=== PATIENT | female | born 1950 | race African-American/Black ===

== ENCOUNTER 2023-01-30 12:10 | Outpatient (AMB) | payer MEDICARE, MEDICAID, SELFPAY ==
--- NOTE | 2023-01-30 12:19 | HO.NEPHOV ---
HPI HPI Comments History of Present Illness Details I had the privilege of seeing Yecenia in follow-up of her chronic kidney disease and hypertension. Her blood pressure has been fairly well controlled. She is active. She avoids nonsteroidal anti-inflammatory medications. She maintains good hydration. He is compliant with her current medication regimen. She has seen Dr. Dawson for her coronary artery disease. She has no chest pain, shortness of breath, proximal nocturnal dyspnea, orthopnea, pedal edema or urinary symptoms. She has gained some weight as per her. She has no orthostatic symptoms. Her renal functions had been stable. She does not have any nausea, vomiting or diarrhea either. She is tolerating her current medication regimen. She has anemia due to iron deficiency as well as anemia of chronic disease. She has not had any Procrit recently. She cannot tolerate oral iron tablets as it is causing constipation. [facility] Medical History (Updated 01/31/23 @ 06:41 by London Boyer MD) Chronic kidney disease Anemia in chronic kidney disease Social History (Updated 01/30/23 @ 12:26 by Acacia Bruno MA) Alcohol intake: never Patient Tobacco Use Status: Never used Tobacco Vital Signs 01/30/23 12:21 01/30/23 13:23 Height 5 ft 8 in Weight 191 lb BMI 29.0 BP 170/80 H 140/80 H Blood Pressure Location Rt brachial Position Sitting Pulse 56 Pulse Source Pulse Oximeter Physical Exam Vital Signs: Last Vital Signs Pulse 56 01/30/23 12:21 BP 140/80 H 01/30/23 13:23 BMI result Body Mass Index 29.0 Const General: comfortable and no acute distress Orientation/consciousness: patient oriented x3 HEENT Head: Yes normocephalic Mouth: Normal oral and palatal mucosa present Eyes EOM: EOMs intact bilaterally Neck Neck: Yes supple Resp Auscultation: clear to auscultation bilaterally Cardio Jugular venous distension: no JVD Rate: regular rate GI Palpation (GI): Soft to palpation Auscultation: normal bowel sounds General: Yes no CVA tenderness Back/Spine/Pelvis Back: no CVA tenderness Skin General skin exam: no rashes or lesions noted Neuro General: patient oriented x3 and moves all extremities Extrem General: Yes no pedal edema Assessment & Plan Assessment & Plan (1) CKD (chronic kidney disease) stage 3, GFR 30-59 ml/min: Code(s): N18.30 - Chronic kidney disease, stage 3 unspecified Qualifiers: Chronic kidney disease stage 3 subtype: stage 3a (GFR 45-59) Qualified Code(s): N18.31 - Chronic kidney disease, stage 3a (2) Hypertension: Code(s): I10 - Essential (primary) hypertension Qualifiers: Hypertension type: primary hypertension Qualified Code(s): I10 - Essential (primary) hypertension (3) Anemia in chronic kidney disease: Code(s): N18.9 - Chronic kidney disease, unspecified; D63.1 - Anemia in chronic kidney disease Qualifiers: Chronic kidney disease stage: stage 3 (moderate) Chronic kidney disease stage 3 subtype: stage 3b (GFR 30-44) Qualified Code(s): N18.32 - Chronic kidney disease, stage 3b; D63.1 - Anemia in chronic kidney disease (4) Iron deficiency: Code(s): E61.1 - Iron deficiency Plan Yecenia has chronic kidney disease and longstanding hypertension. 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 She is known to have coronary artery disease and has undergone angioplasty and stenting. Her urine output is good. Volume status is optimal. Her blood pressure when repeated by me in the clinic was 130/80 mmHg. She needs to maintain low-sodium diet and lose some weight. She is to follow-up with her medical record librarians teacher. She has history of lower extremity blood clots which is of no concern. She is compliant with her medications. She is iron deficient. I plan to arrange intravenous iron as she cannot tolerate oral iron due to constipation issues. If her hemoglobin does not improve with iron repletion, she will need Procrit. I also have ordered 24 hour urine collection for creatinine clearance. All questions were answered. Time spent retrieving data, patient encounter and documentation 47 minutes. Follow-up given. Orders: Orders Creatinine Clearance Urine 01/30/23 D63.1 - Anemia in chronic kidney disease, I10 - Essential (primary) hypertension, N18.30 - Chronic kidney disease, stage 3 unspecified, N18.9 - Chronic kidney disease, unspecified IRON PROFILE 01/30/23 D63.1 - Anemia in chronic kidney disease, I10 - Essential (primary) hypertension, N18.30 - Chronic kidney disease, stage 3 unspecified, N18.9 - Chronic kidney disease, unspecified Complete Blood Count Auto Diff 01/30/23 D63.1 - Anemia in chronic kidney disease, I10 - Essential (primary) hypertension, N18.30 - Chronic kidney disease, stage 3 unspecified, N18.9 - Chronic kidney disease, unspecified Electrolytes 01/30/23 D63.1 - Anemia in chronic kidney disease, I10 - Essential (primary) hypertension, N18.30 - Chronic kidney disease, stage 3 unspecified, N18.9 - Chronic kidney disease, unspecified Blood Urea Nitrogen 01/30/23 D63.1 - Anemia in chronic kidney disease, I10 - Essential (primary) hypertension, N18.30 - Chronic kidney disease, stage 3 unspecified, N18.9 - Chronic kidney disease, unspecified Creatinine 01/30/23 D63.1 - Anemia in chronic kidney disease, I10 - Essential (primary) hypertension, N18.30 - Chronic kidney disease, stage 3 unspecified, N18.9 - Chronic kidney disease, unspecified Ferritin 01/30/23 D63.1 - Anemia in chronic kidney disease, I10 - Essential (primary) hypertension, N18.30 - Chronic kidney disease, stage 3 unspecified, N18.9 - Chronic kidney disease, unspecified Calcium 01/30/23 D63.1 - Anemia in chronic kidney disease, I10 - Essential (primary) hypertension, N18.30 - Chronic kidney disease, stage 3 unspecified, N18.9 - Chronic kidney disease, unspecified Coding Level of Care Code Est Pt Level 4 (24422) Diagnoses Stage 3a chronic kidney disease N18.31 Chronic kidney disease stage 3 subtype: stage 3a (GFR 45-59) Primary hypertension I10 Hypertension type: primary hypertension Anemia in stage 3b chronic kidney disease N18.32; D63.1 Chronic kidney disease stage: stage 3 (moderate) Chronic kidney disease stage 3 subtype: stage 3b (GFR 30-44) Iron deficiency E61.1 Results Reviewed Nephrology Results: No Data to Display
[2023-01-30 12:21] VITALS: BP 170/80; PULSE 56; BMI 29.0
[2023-01-30 13:23] VITALS: BP 140/80
== END 2023-01-30 13:36 | disposition home or self-care (01) ==
PROVIDERS: Visit Provider Internal Medicine Nephrology
DX: N18.31 Chronic kidney disease, stage 3a (principal); I10 Essential (primary) hypertension; N18.32 Chronic kidney disease, stage 3b; D63.1 Anemia in chronic kidney disease; E61.1 Iron deficiency
CPT/HCPCS: 99214

== ENCOUNTER → 2023-01-30 12:10 | Outpatient (BNVA) | payer MEDICARE, MEDICAID, SELFPAY | PROVIDERS: Visit Provider Internal Medicine Nephrology | DX: I12.9 Hypertensive chronic kidney disease with stage 1 through stage 4 chronic kidney disease, or unspecified chronic kidney disease (principal); N18.31 Chronic kidney disease, stage 3a; D63.1 Anemia in chronic kidney disease; E61.1 Iron deficiency | CPT/HCPCS: 99212 ==

== ENCOUNTER 2023-04-04 10:22 | Outpatient (AMB) | payer MEDICARE, MEDICAID, SELFPAY ==
[2023-04-04 10:28] VITALS: BP 128/60; PULSE 59; O2SAT 98; BMI 28.3
--- NOTE | 2023-04-04 10:28 | HO.NEPHOV ---
HPI HPI Comments History of Present Illness Details I had the privilege of seeing Yecenia in follow-up of her chronic kidney disease and hypertension. She is active. She avoids nonsteroidal anti-inflammatory medications. She maintains good hydration. He is compliant with her current medication regimen. She has seen Dr. Dawson for her coronary artery disease. She has no chest pain, shortness of breath, proximal nocturnal dyspnea, orthopnea, pedal edema or urinary symptoms. She has gained some weight as per her. She has no orthostatic symptoms. Her renal functions had been stable. She does not have any nausea, vomiting or diarrhea either. She is tolerating her current medication regimen. She has anemia due to iron deficiency as well as anemia of chronic disease. [facility] Medical History (Updated 04/04/23 @ 11:21 by London Boyer MD) Chronic kidney disease Anemia in chronic kidney disease Social History Alcohol intake: never Patient Tobacco Use Status: Never used Tobacco Vital Signs 04/04/23 10:28 Height 5 ft 8 in Weight 186 lb BMI 28.3 BP 128/60 Blood Pressure Location Rt brachial Position Sitting Pulse 59 Pulse Source Pulse Oximeter Pulse Oximetry (%) 98 Oxygen Delivery Method Room Air Physical Exam Vital Signs: Last Vital Signs Pulse 59 04/04/23 10:28 BP 160/70 H 04/04/23 10:28 Pulse Ox 98 04/04/23 10:28 Oxygen Delivery Method Room Air 04/04/23 10:28 BMI result Body Mass Index 28.3 Const General: comfortable and no acute distress Orientation/consciousness: patient oriented x3 HEENT Head: Yes normocephalic Mouth: Normal oral and palatal mucosa present Eyes EOM: EOMs intact bilaterally Neck Neck: Yes supple Resp Auscultation: clear to auscultation bilaterally Cardio Jugular venous distension: no JVD Rate: regular rate GI Palpation (GI): Soft to palpation Auscultation: normal bowel sounds General: Yes no CVA tenderness Back/Spine/Pelvis Back: no CVA tenderness Skin General skin exam: no rashes or lesions noted Neuro General: patient oriented x3 and moves all extremities Extrem General: Yes no pedal edema Assessment & Plan Assessment & Plan (1) Anemia in chronic kidney disease: Code(s): N18.9 - Chronic kidney disease, unspecified; D63.1 - Anemia in chronic kidney disease Qualifiers: Chronic kidney disease stage: stage 3 (moderate) Chronic kidney disease stage 3 subtype: stage 3b (GFR 30-44) Qualified Code(s): N18.32 - Chronic kidney disease, stage 3b; D63.1 - Anemia in chronic kidney disease (2) Hypertension: Code(s): I10 - Essential (primary) hypertension Qualifiers: Hypertension type: primary hypertension Qualified Code(s): I10 - Essential (primary) hypertension (3) CKD (chronic kidney disease) stage 3, GFR 30-59 ml/min: Code(s): N18.30 - Chronic kidney disease, stage 3 unspecified Qualifiers: Chronic kidney disease stage 3 subtype: stage 3a (GFR 45-59) Qualified Code(s): N18.31 - Chronic kidney disease, stage 3a (4) Iron deficiency: Code(s): E61.1 - Iron deficiency (5) Hyperkalemia: Code(s): E87.5 - Hyperkalemia Plan Yecenia has chronic kidney disease and longstanding hypertension. 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 She is known to have coronary artery disease and has undergone angioplasty and stenting. Her urine output is good. Volume status is optimal. Her blood pressure when repeated by me in the clinic was 130/80 mmHg. She needs to maintain low-sodium diet and lose some weight. She is to follow-up with her molder hand. She has history of lower extremity blood clots which is of no concern. She is compliant with her medications. She is iron deficient. I gave her Kayexalate 30 Gram one time dose today. I plan to arrange intravenous iron if she cannot tolerate oral iron due to constipation issues. I gave [id number] Units Procrit today. I reduced her Spironolactone to 12.5 mg daily. I also ordered Kayexalate 30 Gram once today. She was asked to take Ferrous sulphate 325 mg bid. I also have ordered 24 hour urine collection for creatinine clearance and repeat renal functions in a month. All questions were answered. Orders: Orders AMB Epoetin Injection Practice Supplied Today D63.1 - Anemia in chronic kidney disease, I10 - Essential (primary) hypertension, N18.30 - Chronic kidney disease, stage 3 unspecified, N18.9 - Chronic kidney disease, unspecified Electrolytes Today D63.1 - Anemia in chronic kidney disease, E61.1 - Iron deficiency, E87.5 - Hyperkalemia, I10 - Essential (primary) hypertension, N18.30 - Chronic kidney disease, stage 3 unspecified, N18.9 - Chronic kidney disease, unspecified Creatinine Today D63.1 - Anemia in chronic kidney disease, E61.1 - Iron deficiency, E87.5 - Hyperkalemia, I10 - Essential (primary) hypertension, N18.30 - Chronic kidney disease, stage 3 unspecified, N18.9 - Chronic kidney disease, unspecified Blood Urea Nitrogen Today D63.1 - Anemia in chronic kidney disease, E61.1 - Iron deficiency, E87.5 - Hyperkalemia, I10 - Essential (primary) hypertension, N18.30 - Chronic kidney disease, stage 3 unspecified, N18.9 - Chronic kidney disease, unspecified Complete Blood Count Auto Diff Today D63.1 - Anemia in chronic kidney disease, E61.1 - Iron deficiency, E87.5 - Hyperkalemia, I10 - Essential (primary) hypertension, N18.30 - Chronic kidney disease, stage 3 unspecified, N18.9 - Chronic kidney disease, unspecified Medications: New sodium polystyrene sulfonate 30 grams PO ONCE 30 grams 0RF epoetin walt 20,000 units (2 mL) subcut ONCE 2 mL 0RF D63.1 - Anemia in chronic kidney disease, I10 - Essential (primary) hypertension, N18.30 - Chronic kidney disease, stage 3 unspecified, N18.9 - Chronic kidney disease, unspecified Coding Level of Care Code Est Pt Level 4 (31809) Diagnoses Anemia in stage 3b chronic kidney disease N18.32; D63.1 Chronic kidney disease stage: stage 3 (moderate) Chronic kidney disease stage 3 subtype: stage 3b (GFR 30-44) Primary hypertension I10 Hypertension type: primary hypertension Stage 3a chronic kidney disease N18.31 Chronic kidney disease stage 3 subtype: stage 3a (GFR 45-59) Iron deficiency E61.1 Hyperkalemia E87.5 Results Reviewed Nephrology Results: No Data to Display
== END 2023-04-04 11:27 | disposition home or self-care (01) ==
PROVIDERS: Visit Provider Internal Medicine Nephrology
DX: N18.32 Chronic kidney disease, stage 3b (principal); D63.1 Anemia in chronic kidney disease; I10 Essential (primary) hypertension; N18.31 Chronic kidney disease, stage 3a; E61.1 Iron deficiency; E87.5 Hyperkalemia
CPT/HCPCS: 99214

== ENCOUNTER → 2023-04-04 10:22 | Outpatient (BNVA) | payer MEDICARE, MEDICAID, SELFPAY | PROVIDERS: Visit Provider Internal Medicine Nephrology | DX: I12.9 Hypertensive chronic kidney disease with stage 1 through stage 4 chronic kidney disease, or unspecified chronic kidney disease (principal); N18.32 Chronic kidney disease, stage 3b; D63.1 Anemia in chronic kidney disease; E61.1 Iron deficiency; E87.5 Hyperkalemia | CPT/HCPCS: 96372; 99212; Q5106 ==

== ENCOUNTER 2023-05-09 10:33 | Outpatient (AMB) | payer MEDICARE, MEDICAID, SELFPAY ==
[2023-05-09 10:49] VITALS: BP 130/80; PULSE 50; O2SAT 97; BMI 27.8
--- NOTE | 2023-05-09 10:49 | HO.NEPHOV_ITS ---
HPI HPI Comments History of Present Illness Details I had the privilege of seeing Yecenia in follow-up of her chronic kidney disease and hypertension. She is active. She avoids nonsteroidal anti- inflammatory medications. She maintains good hydration. He is compliant with her current medication regimen. She has seen Dr. Dawson for her coronary artery disease. She has no chest pain, shortness of breath, proximal nocturnal dyspnea, orthopnea, pedal edema or urinary symptoms. She has gained some weight as per her. She has no orthostatic symptoms. Her renal functions had been stable. She does not have any nausea, vomiting or diarrhea either. She is tolerating her current medication regimen. She has anemia due to iron deficiency as well as anemia of chronic disease. [facility] Medical History (Updated 04/04/23 @ 11:21 by London Boyer MD) Chronic kidney disease Anemia in chronic kidney disease Social History Alcohol intake: never Patient Tobacco Use Status: Never used Tobacco Vital Signs 05/09/23 10:49 Height 5 ft 8 in Weight 183 lb BMI 27.8 BP 130/80 Blood Pressure Location Rt brachial Position Sitting Pulse 50 Pulse Source Pulse Oximeter Pulse Oximetry (%) 97 Oxygen Delivery Method Room Air Physical Exam Vital Signs: Last Vital Signs Pulse 50 05/09/23 10:49 BP 148/76 H 05/09/23 10:49 Pulse Ox 97 05/09/23 10:49 Oxygen Delivery Method Room Air 05/09/23 10:49 BMI result Body Mass Index 27.8 Const General: comfortable and no acute distress Orientation/consciousness: patient oriented x3 HEENT Head: Yes normocephalic Mouth: Normal oral and palatal mucosa present Eyes EOM: EOMs intact bilaterally Neck Neck: Yes supple Resp Auscultation: clear to auscultation bilaterally Cardio Jugular venous distension: no JVD Rate: regular rate GI Palpation (GI): Soft to palpation Auscultation: normal bowel sounds General: Yes no CVA tenderness Back/Spine/Pelvis Back: no CVA tenderness Skin General skin exam: no rashes or lesions noted Neuro General: patient oriented x3 and moves all extremities Extrem General: Yes pedal edema Office Meds epoetin walt-epbx 10,000 unit/mL injection solution Performing Provider: London Boyer MD [facility] Administered by: London Boyer MD on 05/09/23 11:15 Dose Route Admin Location Dispensed Lot Number Expiration Date [facility] [employer] 20,000 unit subcut L UE 2 mL [id number] 07/20/25 8888-6045-91 [employer] Assessment & Plan Assessment & Plan (1) Anemia in chronic kidney disease: Code(s): N18.9 - Chronic kidney disease, unspecified; D63.1 - Anemia in chronic kidney disease Qualifiers: Chronic kidney disease stage: stage 3 (moderate) Chronic kidney disease stage 3 subtype: stage 3b (GFR 30-44) Qualified Code(s): N18.32 - Chronic kidney disease, stage 3b; D63.1 - Anemia in chronic kidney disease (2) Hypertension: Code(s): I10 - Essential (primary) hypertension Qualifiers: Hypertension type: primary hypertension Qualified Code(s): I10 - Essential (primary) hypertension (3) CKD (chronic kidney disease) stage 3, GFR 30-59 ml/min: Code(s): N18.30 - Chronic kidney disease, stage 3 unspecified Qualifiers: Chronic kidney disease stage 3 subtype: stage 3a (GFR 45-59) Qualified Code(s): N18.31 - Chronic kidney disease, stage 3a (4) Iron deficiency: Code(s): E61.1 - Iron deficiency (5) Hyperkalemia: Code(s): E87.5 - Hyperkalemia Plan Yecenia has chronic kidney disease and longstanding hypertension. 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 She is known to have coronary artery disease and has undergone angioplasty and stenting. Her urine output is good. Volume status is optimal. Her blood pressure when repeated by me in the clinic was 130/80 mmHg. She needs to maintain low-sodium diet and lose some weight. She is to follow-up with her service counter cashier. She has history of lower extremity blood clots which is of no concern. She is compliant with her medications. She is iron deficient. I gave her Kayexalate 30 Gram one time every week. I plan to arrange intravenous iron if she cannot tolerate oral iron due to constipation issues. I gave [id number] Units Procrit today.She was asked to take Ferrous sulphate 325 mg bid. F/U labs ordered. All questions were answered. Orders: Orders Complete Blood Count Auto Diff Today D63.1 - Anemia in chronic kidney disease, N18.30 - Chronic kidney disease, stage 3 unspecified, N18.9 - Chronic kidney disease, unspecified AMB Epoetin Injection Practice Supplied Today D63.1 - Anemia in chronic kidney disease, N18.9 - Chronic kidney disease, unspecified Medications: New sodium polystyrene sulfonate 30 grams PO .q weekly 453.6 grams 3RF 90 days Coding Level of Care Code Est Pt Level 4 (84604) Diagnoses Anemia in stage 3b chronic kidney disease N18.32; D63.1 Chronic kidney disease stage: stage 3 (moderate) Chronic kidney disease stage 3 subtype: stage 3b (GFR 30-44) Primary hypertension I10 Hypertension type: primary hypertension Stage 3a chronic kidney disease N18.31 Chronic kidney disease stage 3 subtype: stage 3a (GFR 45-59) Iron deficiency E61.1 Hyperkalemia E87.5 Results Reviewed Nephrology Results: No Data to Display
== END 2023-05-09 11:30 | disposition home or self-care (01) ==
PROVIDERS: Visit Provider Internal Medicine Nephrology
DX: I12.9 Hypertensive chronic kidney disease with stage 1 through stage 4 chronic kidney disease, or unspecified chronic kidney disease (principal); N18.32 Chronic kidney disease, stage 3b; D63.1 Anemia in chronic kidney disease; N18.31 Chronic kidney disease, stage 3a; E61.1 Iron deficiency; E87.5 Hyperkalemia; N18.9 Chronic kidney disease, unspecified
CPT/HCPCS: 99214

== ENCOUNTER → 2023-05-09 10:33 | Outpatient (BNVA) | payer MEDICARE, MEDICAID, SELFPAY | PROVIDERS: Visit Provider Internal Medicine Nephrology | DX: I12.9 Hypertensive chronic kidney disease with stage 1 through stage 4 chronic kidney disease, or unspecified chronic kidney disease (principal); N18.30 Chronic kidney disease, stage 3 unspecified; D63.1 Anemia in chronic kidney disease; E61.1 Iron deficiency; E87.5 Hyperkalemia | CPT/HCPCS: 96372; 99212; Q5106 ==

== ENCOUNTER 2023-09-19 09:18 | Outpatient (REF) | payer MEDICARE, MEDICAID, SELFPAY ==
[2023-09-19 11:39] LABS: Anion Gap 12 (12-20); Blood Urea Nitrogen 49 mg/dL (9-16); Calcium 9.9 mg/dL (8.4-10.2); Carbon Dioxide 24 mmol/L (22-29); Chloride 110 mmol/L (96-108); Estimated Glomerular Filt Rate 16; Iron 23 mcg/dL (30-160); Percent Iron Saturation 7 % (15-50); Phosphorus 3.8 mg/dL (2.7-4.5); Potassium 4.5 mmol/L (3.3-5.1); Sodium 141 mmol/L (135-145); Total Iron Binding Capacity 326 mcg/dL (228-428); Unsaturated Iron Binding 303 ug/dL
[2023-09-19 11:56] LABS: Ferritin 133 ng/mL (10-250)
[2023-09-19 12:27] LABS: MANUAL DIFF FLAG NO
[2023-09-19 12:36] LABS: Basophils Percent Auto 0.7 % (0-2); Eosinophils Absolute Auto 0.1 X10*3/uL (0.0-0.4); Hematocrit 29.5 % (37.0-47.0); Hemoglobin 8.1 g/dl (12.0-16.0); Imm Gran Abs Auto 0.02 X10*3/uL (0.00-0.03); Imm Gran Pct Auto 0.4 % (0.0-0.4); Lymphocytes Absolute Auto 1.2 X10*3/uL (1.2-4.9); Lymphocytes Percent Auto 20.7 % (20-40); Mean Corpuscular HGB Conc 27.5 g/dl (31.0-35.0); Mean Corpuscular Hemoglobin 22.9 pg (27.0-33.0); Mean Corpuscular Volume 83.3 fL (80.0-98.0); Mean Platelet Volume 11.8 fL (9.4-12.3); Monocytes Absolute Auto 0.5 X10*3/uL (0.1-1.2); Monocytes Percent Auto 8.6 % (2-11); Neutrophils Absolute Auto 3.8 x10*3/uL (2.0-8.3); Neutrophils Percent Auto 67.6 % (45-73); Platelet Count 285 X10*3/uL (160-400); Red Blood Count 3.54 X10*6/uL (4.20-5.50); White Blood Count 5.6 X10*3/uL (4.8-10.8)
== END 2023-09-19 09:19 | disposition home or self-care (01) ==
LOC: HO.10HDL 09:18
PROVIDERS: Visit Provider Internal Medicine Nephrology
DX: E61.1 Iron deficiency (principal); N18.9 Chronic kidney disease, unspecified; D63.1 Anemia in chronic kidney disease; I10 Essential (primary) hypertension; N18.30 Chronic kidney disease, stage 3 unspecified; E87.5 Hyperkalemia
CPT/HCPCS: 36415; 80051; 82310; 82565; 82728; 83540; 84100; 84520; 85025

== ENCOUNTER 2023-09-21 11:23 | Outpatient (AMB) | payer MEDICARE, MEDICAID, SELFPAY ==
[2023-09-21 11:27] VITALS: BP 140/90; BMI 26.4
--- NOTE | 2023-09-21 11:27 | HO.NEPHOV ---
Vital Signs 09/21/23 11:27 Height 5 ft 8 in Weight 173 lb 8 oz BMI 26.4 BP 140/90 H Blood Pressure Location Rt brachial Position Sitting Intake Visit Reasons: Follow up/ Conf Rn Pain Management Required: No Accompanied by: Self / Same As Patient Allergies amoxicillin Allergy (Unknown, Verified 09/21/23 11:29) Unknown hydrochlorothiazide Allergy (Unknown, Verified 09/21/23 11:29) Unknown Chase inhibitors Allergy (Unknown, Uncoded 04/04/23 10:42) Unknown latex Allergy (Unknown, Uncoded 04/01/19 00:00) rash HPI Comments Details: I had the privilege of seeing Yecenia in follow-up of her chronic kidney disease and hypertension. She is active. She avoids nonsteroidal anti-inflammatory medications. She maintains good hydration. He is compliant with her current medication regimen. She has seen Dr. Dawson for her coronary artery disease. She has no chest pain, shortness of breath, proximal nocturnal dyspnea, orthopnea, pedal edema or urinary symptoms. She has gained some weight as per her. She has no orthostatic symptoms. Her renal functions had been stable. She does not have any nausea, vomiting or diarrhea either. She is tolerating her current medication regimen. She has anemia due to iron deficiency as well as anemia of chronic disease. Her serum creatinine has gone up [facility] Medical History (Updated 04/04/23 @ 11:21 by London Boyer MD) Chronic kidney disease Anemia in chronic kidney disease Social History Alcohol intake: never Patient Tobacco Use Status: Never used Tobacco Physical Exam Vital Signs: Last Vital Signs BP 140/90 H 09/21/23 11:27 BMI result Body Mass Index 26.4 Const General: comfortable and no acute distress Orientation/consciousness: patient oriented x3 HEENT Head: Yes normocephalic Mouth: Normal oral and palatal mucosa present Eyes EOM: EOMs intact bilaterally Neck Neck: Yes supple Resp Auscultation: clear to auscultation bilaterally Cardio Jugular venous distension: no JVD Rate: regular rate GI Palpation (GI): Soft to palpation Auscultation: normal bowel sounds General: Yes no CVA tenderness Back/Spine/Pelvis Back: no CVA tenderness Skin General skin exam: no rashes or lesions noted Neuro General: patient oriented x3 and moves all extremities Extrem General: Yes no pedal edema Office Meds epoetin walt-epbx 10,000 unit/mL injection solution Performing Provider: London Boyer MD [place] [facility] [facility] Administered by: London Boyer MD on 09/21/23 12:10 Dose Route Admin Location Dispensed Lot Number Expiration Date [facility] [employer] 40,000 unit subcut lue 4 mL [id number] 01/19/25 3131-6726-96 [employer] Results Reviewed Nephrology Results: Hgb 8.1 g/dl (12.0-16.0) L 09/19/23 WBC 5.6 X10*3/uL (4.8-10.8) 09/19/23 Plt Count 285 X10*3/uL (160-400) 09/19/23 Sodium 141 mmol/L (135-145) 09/19/23 Potassium 4.5 mmol/L (3.3-5.1) 09/19/23 Chloride 110 mmol/L (96-108) H 09/19/23 Carbon Dioxide 24 mmol/L (22-29) 09/19/23 BUN 49 mg/dL (9-16) H 09/19/23 Creatinine 2.82 mg/dL (0.5-1.4) H 09/19/23 Calcium 9.9 mg/dL (8.4-10.2) 09/19/23 Phosphorus 3.8 mg/dL (2.7-4.5) 09/19/23 Assessment & Plan Assessment & Plan (1) Iron deficiency: Code(s): E61.1 - Iron deficiency Category: Medical (2) Anemia in chronic kidney disease: Code(s): N18.9 - Chronic kidney disease, unspecified; D63.1 - Anemia in chronic kidney disease Category: Medical Qualifiers: Chronic kidney disease stage: stage 3 (moderate) Chronic kidney disease stage 3 subtype: stage 3b (GFR 30-44) Qualified Code(s): N18.32 - Chronic kidney disease, stage 3b; D63.1 - Anemia in chronic kidney disease (3) Hypertension: Code(s): I10 - Essential (primary) hypertension Category: Medical Qualifiers: Hypertension type: primary hypertension Qualified Code(s): I10 - Essential (primary) hypertension (4) CKD (chronic kidney disease) stage 3, GFR 30-59 ml/min: Code(s): N18.30 - Chronic kidney disease, stage 3 unspecified Category: Medical Qualifiers: Chronic kidney disease stage 3 subtype: stage 3a (GFR 45-59) Qualified Code(s): N18.31 - Chronic kidney disease, stage 3a Plan Yecenia has chronic kidney disease and longstanding hypertension. 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 She is known to have coronary artery disease and has undergone angioplasty and stenting. Her urine output is good. Volume status is optimal. Her blood pressure when repeated by me in the clinic was 130/80 mmHg. She needs to maintain low-sodium diet and lose some weight. She is to follow-up with her nursing education consultant. She is compliant with her medications. She is iron deficient. I ordered intravenous iron . I gave [id number] Units Procrit today. F/U labs ordered. All questions were answered. Orders: Orders Creatinine Today D63.1 - Anemia in chronic kidney disease, I10 - Essential (primary) hypertension, N18.31 - Chronic kidney disease, stage 3a, N18.32 - Chronic kidney disease, stage 3b Blood Urea Nitrogen Today D63.1 - Anemia in chronic kidney disease, I10 - Essential (primary) hypertension, N18.31 - Chronic kidney disease, stage 3a, N18.32 - Chronic kidney disease, stage 3b Electrolytes Today D63.1 - Anemia in chronic kidney disease, I10 - Essential (primary) hypertension, N18.31 - Chronic kidney disease, stage 3a, N18.32 - Chronic kidney disease, stage 3b AMB Epoetin Injection Practice Supplied Today D63.1 - Anemia in chronic kidney disease, N18.32 - Chronic kidney disease, stage 3b Complete Blood Count Auto Diff 1 Month D63.1 - Anemia in chronic kidney disease, I10 - Essential (primary) hypertension, N18.31 - Chronic kidney disease, stage 3a, N18.32 - Chronic kidney disease, stage 3b Coding Level of Care Code Est Pt Level 4 (67818) Diagnoses Iron deficiency E61.1 Anemia in stage 3b chronic kidney disease N18.32; D63.1 Chronic kidney disease stage: stage 3 (moderate) Chronic kidney disease stage 3 subtype: stage 3b (GFR 30-44) Primary hypertension I10 Hypertension type: primary hypertension Stage 3a chronic kidney disease N18.31 Chronic kidney disease stage 3 subtype: stage 3a (GFR 45-59)
== END 2023-09-21 12:16 | disposition home or self-care (01) ==
PROVIDERS: Visit Provider Internal Medicine Nephrology
DX: E61.1 Iron deficiency (principal); N18.32 Chronic kidney disease, stage 3b; D63.1 Anemia in chronic kidney disease; I10 Essential (primary) hypertension; N18.31 Chronic kidney disease, stage 3a
CPT/HCPCS: 99214

== ENCOUNTER → 2023-09-21 11:23 | Outpatient (BNVA) | payer MEDICARE, MEDICAID, SELFPAY | PROVIDERS: Visit Provider Internal Medicine Nephrology | DX: I12.9 Hypertensive chronic kidney disease with stage 1 through stage 4 chronic kidney disease, or unspecified chronic kidney disease (principal); N18.32 Chronic kidney disease, stage 3b; D63.1 Anemia in chronic kidney disease; E61.1 Iron deficiency | CPT/HCPCS: 96372; 99212; Q5106 ==

== ENCOUNTER 2023-10-18 08:47 | Outpatient (REF) | payer MEDICARE, MEDICAID, SELFPAY ==
[2023-10-18 09:53] LABS: MANUAL DIFF FLAG NO
[2023-10-18 10:13] LABS: Basophils Absolute Auto 0.1 X10*3/uL (0.0-0.2); Basophils Percent Auto 0.9 % (0-2); Eosinophils Absolute Auto 0.1 X10*3/uL (0.0-0.4); Eosinophils Percent Auto 2.3 % (0-4); Hematocrit 28.5 % (37.0-47.0); Hemoglobin 7.9 g/dl (12.0-16.0); Imm Gran Abs Auto 0.02 X10*3/uL (0.00-0.03); Imm Gran Pct Auto 0.4 % (0.0-0.4); Lymphocytes Absolute Auto 1.6 X10*3/uL (1.2-4.9); Lymphocytes Percent Auto 27.6 % (20-40); Mean Corpuscular HGB Conc 27.7 g/dl (31.0-35.0); Mean Corpuscular Hemoglobin 22.1 pg (27.0-33.0); Mean Corpuscular Volume 79.6 fL (80.0-98.0); Mean Platelet Volume 10.4 fL (9.4-12.3); Monocytes Absolute Auto 0.5 X10*3/uL (0.1-1.2); Monocytes Percent Auto 8.8 % (2-11); Neutrophils Absolute Auto 3.4 x10*3/uL (2.0-8.3); Platelet Count 334 X10*3/uL (160-400); Red Blood Count 3.58 X10*6/uL (4.20-5.50); Red Cell Distribution Width 18.7 % (11.0-16.0); White Blood Count 5.7 X10*3/uL (4.8-10.8)
[2023-10-18 10:48] LABS: Anion Gap 13 (12-20); Blood Urea Nitrogen 49 mg/dL (9-16); Calcium 9.9 mg/dL (8.4-10.2); Carbon Dioxide 22 mmol/L (22-29); Chloride 110 mmol/L (96-108); Estimated Glomerular Filt Rate 17; Glucose Random 117 mg/dL (60-115); Phosphorus 3.7 mg/dL (2.7-4.5); Potassium 4.7 mmol/L (3.3-5.1); Sodium 140 mmol/L (135-145)
[2023-10-31 17:09] LABS: Parathyroid Hormone Related Pr 16 pg/mL (11-20)
== END 2023-10-18 08:48 | disposition home or self-care (01) ==
LOC: HO.LAB 08:47
PROVIDERS: Internal Medicine Hypertension Specialist; Visit Provider Internal Medicine Nephrology
DX: I12.9 Hypertensive chronic kidney disease with stage 1 through stage 4 chronic kidney disease, or unspecified chronic kidney disease (principal); N18.30 Chronic kidney disease, stage 3 unspecified; D63.1 Anemia in chronic kidney disease
CPT/HCPCS: 36415; 80048; 83519; 84100; 85025

== ENCOUNTER 2023-10-26 11:31 | Outpatient (AMB) | payer MEDICARE, MEDICAID, SELFPAY ==
--- NOTE | 2023-10-26 11:43 | HO.NEPHOV ---
Vital Signs 10/26/23 11:49 Height 5 ft 8 in Weight 174 lb 6 oz BMI 26.5 BP 130/80 Blood Pressure Location Lt brachial Position Sitting Pulse 56 Pulse Source Pulse Oximeter Pulse Oximetry (%) 98 Oxygen Delivery Method Room Air Intake Visit Reasons: Anemia in chronic kidney disease- LVM Nurse Navigator Required: No Accompanied by: Self / Same As Patient Allergies amoxicillin Allergy (Unknown, Verified 10/26/23 11:55) Unknown hydrochlorothiazide Allergy (Unknown, Verified 10/26/23 11:55) Unknown Chase inhibitors Allergy (Unknown, Uncoded 04/04/23 10:42) Unknown latex Allergy (Unknown, Uncoded 04/01/19 00:00) rash HPI Comments Details: I had the privilege of seeing Yecenia in follow-up of her chronic kidney disease and hypertension. She is active. She avoids nonsteroidal anti-inflammatory medications. She maintains good hydration. He is compliant with her current medication regimen. She has seen Dr. Dawson for her coronary artery disease. She has no chest pain, shortness of breath, proximal nocturnal dyspnea, orthopnea, pedal edema or urinary symptoms. She has gained some weight as per her. She has no orthostatic symptoms. Her renal functions had been stable. She does not have any nausea, vomiting or diarrhea either. She is tolerating her current medication regimen. She has anemia due to iron deficiency as well as anemia of chronic disease. [facility]MERLY [facility], [facility] Medical History (Updated 04/04/23 @ 11:21 by London Boyer MD) Chronic kidney disease Anemia in chronic kidney disease Social History Alcohol intake: never Patient Tobacco Use Status: Never used Tobacco Review of Systems Const All systems reviewed & are unremarkable except as noted in HPI and below Physical Exam Vital Signs: Last Vital Signs Pulse 56 10/26/23 11:49 BP 150/70 H 10/26/23 11:49 Pulse Ox 98 10/26/23 11:49 Oxygen Delivery Method Room Air 10/26/23 11:49 BMI result Body Mass Index 26.5 Const General: comfortable and no acute distress Orientation/consciousness: patient oriented x3 HEENT Head: Yes normocephalic Mouth: Normal oral and palatal mucosa present Eyes EOM: EOMs intact bilaterally Neck Neck: Yes supple Resp Auscultation: clear to auscultation bilaterally Cardio Jugular venous distension: no JVD Rate: regular rate GI Palpation (GI): Soft to palpation Auscultation: normal bowel sounds General: Yes no CVA tenderness Back/Spine/Pelvis Back: no CVA tenderness Skin General skin exam: no rashes or lesions noted Neuro General: patient oriented x3 and moves all extremities Extrem General: Yes no pedal edema Results Reviewed Nephrology Results: Hgb 7.9 g/dl (12.0-16.0) L 10/18/23 WBC 5.7 X10*3/uL (4.8-10.8) 10/18/23 Plt Count 334 X10*3/uL (160-400) 10/18/23 Sodium 140 mmol/L (135-145) 10/18/23 Potassium 4.7 mmol/L (3.3-5.1) 10/18/23 Chloride 110 mmol/L (96-108) H 10/18/23 Carbon Dioxide 22 mmol/L (22-29) 10/18/23 BUN 49 mg/dL (9-16) H 10/18/23 Creatinine 2.70 mg/dL (0.5-1.4) H 10/18/23 Calcium 9.9 mg/dL (8.4-10.2) 10/18/23 Phosphorus 3.7 mg/dL (2.7-4.5) 10/18/23 Assessment & Plan Assessment & Plan (1) CKD (chronic kidney disease) stage 3, GFR 30-59 ml/min: Code(s): N18.30 - Chronic kidney disease, stage 3 unspecified Category: Medical Qualifiers: Chronic kidney disease stage 3 subtype: stage 3a (GFR 45-59) Qualified Code(s): N18.31 - Chronic kidney disease, stage 3a (2) Hypertension: Code(s): I10 - Essential (primary) hypertension Category: Medical Qualifiers: Hypertension type: primary hypertension Qualified Code(s): I10 - Essential (primary) hypertension (3) Anemia in chronic kidney disease: Code(s): N18.9 - Chronic kidney disease, unspecified; D63.1 - Anemia in chronic kidney disease Category: Medical Qualifiers: Chronic kidney disease stage: stage 3 (moderate) Chronic kidney disease stage 3 subtype: stage 3b (GFR 30-44) Qualified Code(s): N18.32 - Chronic kidney disease, stage 3b; D63.1 - Anemia in chronic kidney disease (4) Iron deficiency: Code(s): E61.1 - Iron deficiency Category: Medical Plan Yecenia has chronic kidney disease and longstanding hypertension. 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 She is known to have coronary artery disease and has undergone angioplasty and stenting. Her urine output is good. Volume status is optimal. Her blood pressure when repeated by me in the clinic was 130/80 mmHg. She needs to maintain low-sodium diet and lose some weight. She is to follow-up with her scraper operator. She is compliant with her medications. She is iron deficient. She is getting intravenous iron . F/U labs ordered. All questions were answered. Orders: Orders Complete Blood Count Auto Diff 2 Months D63.1 - Anemia in chronic kidney disease, E61.1 - Iron deficiency, I10 - Essential (primary) hypertension, N18.31 - Chronic kidney disease, stage 3a, N18.32 - Chronic kidney disease, stage 3b IRON PROFILE 2 Months D63.1 - Anemia in chronic kidney disease, E61.1 - Iron deficiency, I10 - Essential (primary) hypertension, N18.31 - Chronic kidney disease, stage 3a, N18.32 - Chronic kidney disease, stage 3b Creatinine 2 Months D63.1 - Anemia in chronic kidney disease, E61.1 - Iron deficiency, I10 - Essential (primary) hypertension, N18.31 - Chronic kidney disease, stage 3a, N18.32 - Chronic kidney disease, stage 3b Ferritin 2 Months D63.1 - Anemia in chronic kidney disease, E61.1 - Iron deficiency, I10 - Essential (primary) hypertension, N18.31 - Chronic kidney disease, stage 3a, N18.32 - Chronic kidney disease, stage 3b Blood Urea Nitrogen 2 Months D63.1 - Anemia in chronic kidney disease, E61.1 - Iron deficiency, I10 - Essential (primary) hypertension, N18.31 - Chronic kidney disease, stage 3a, N18.32 - Chronic kidney disease, stage 3b Electrolytes 2 Months D63.1 - Anemia in chronic kidney disease, E61.1 - Iron deficiency, I10 - Essential (primary) hypertension, N18.31 - Chronic kidney disease, stage 3a, N18.32 - Chronic kidney disease, stage 3b Coding Level of Care Code Est Pt Level 4 (77295) Diagnoses Stage 3a chronic kidney disease N18.31 Chronic kidney disease stage 3 subtype: stage 3a (GFR 45-59) Primary hypertension I10 Hypertension type: primary hypertension Anemia in stage 3b chronic kidney disease N18.32; D63.1 Chronic kidney disease stage: stage 3 (moderate) Chronic kidney disease stage 3 subtype: stage 3b (GFR 30-44) Iron deficiency E61.1
[2023-10-26 11:49] VITALS: BP 130/80; PULSE 56; O2SAT 98; BMI 26.5
== END 2023-10-26 12:33 | disposition home or self-care (01) ==
PROVIDERS: Visit Provider Internal Medicine Nephrology
DX: N18.31 Chronic kidney disease, stage 3a (principal); I10 Essential (primary) hypertension; N18.32 Chronic kidney disease, stage 3b; D63.1 Anemia in chronic kidney disease; E61.1 Iron deficiency
CPT/HCPCS: 99214

== ENCOUNTER → 2023-10-26 11:31 | Outpatient (BNVA) | payer MEDICARE, MEDICAID, SELFPAY | PROVIDERS: Visit Provider Internal Medicine Nephrology | DX: I12.9 Hypertensive chronic kidney disease with stage 1 through stage 4 chronic kidney disease, or unspecified chronic kidney disease (principal); N18.32 Chronic kidney disease, stage 3b; D63.1 Anemia in chronic kidney disease; E61.1 Iron deficiency | CPT/HCPCS: 99212 ==

== ENCOUNTER 2023-11-16 11:15 | Outpatient (RCR) | payer MEDICARE, MEDICAID, SELFPAY ==
[2023-10-18 10:05] VITALS: BP 186/78; PULSE 86; RESP 18; TEMP 36.6
[2023-10-18] MEDS: Iron Sucrose Complex 200 MG in 0.9 % Sodium Chloride 100 ML 440 MG IV (10:21)
[2023-10-26 10:39] VITALS: BP 172/54; PULSE 49; RESP 18; TEMP 36.6
[2023-10-26] MEDS: Iron Sucrose Complex 200 MG in 0.9 % Sodium Chloride 100 ML 440 MG IV (10:50)
[2023-11-02 10:23] VITALS: BP 152/54; PULSE 50; RESP 16; TEMP 36.8; O2SAT 97
[2023-11-02] MEDS: Iron Sucrose Complex 200 MG in 0.9 % Sodium Chloride 100 ML 440 MG IV (10:32)
[2023-11-16 11:12] VITALS: BP 147/55; PULSE 53; RESP 20; TEMP 36.6; O2SAT 99
[2023-11-16] MEDS: Iron Sucrose Complex 200 MG in 0.9 % Sodium Chloride 100 ML 440 MG IV (11:23)
== END 2024-01-09 11:18 | disposition home or self-care (01) ==
LOC: HO.INF 11:15
PROVIDERS: Visit Provider Internal Medicine Nephrology
DX: E61.1 Iron deficiency (principal)
CPT/HCPCS: 96365; J1756

== ENCOUNTER 2023-12-28 07:38 | Outpatient (REF) | payer MEDICARE, MEDICAID, SELFPAY ==
[2023-12-28 08:49] LABS: Basophils Absolute Auto 0.1 X10*3/uL (0.0-0.2); Basophils Percent Auto 0.8 % (0-2); Eosinophils Absolute Auto 0.1 X10*3/uL (0.0-0.4); Eosinophils Percent Auto 1.8 % (0-4); Hematocrit 23.1 % (37.0-47.0); Imm Gran Abs Auto 0.02 X10*3/uL (0.00-0.03); Imm Gran Pct Auto 0.3 % (0.0-0.4); Lymphocytes Absolute Auto 1.3 X10*3/uL (1.2-4.9); Lymphocytes Percent Auto 19.7 % (20-40); MANUAL DIFF FLAG NO; Mean Corpuscular HGB Conc 26.8 g/dl (31.0-35.0); Mean Corpuscular Volume 81.9 fL (80.0-98.0); Mean Platelet Volume 9.9 fL (9.4-12.3); Monocytes Absolute Auto 0.6 X10*3/uL (0.1-1.2); Monocytes Percent Auto 9.2 % (2-11); Neutrophils Absolute Auto 4.4 x10*3/uL (2.0-8.3); Neutrophils Percent Auto 68.2 % (45-73); Platelet Count 444 X10*3/uL (160-400); Red Blood Count 2.82 X10*6/uL (4.20-5.50); Red Cell Distribution Width 21.2 % (11.0-16.0); White Blood Count 6.5 X10*3/uL (4.8-10.8)
[2023-12-28 08:59] LABS: Hemoglobin 6.2 g/dl (12.0-16.0)
[2023-12-28 09:35] LABS: Anion Gap 16 (12-20); Blood Urea Nitrogen 54 mg/dL (9-16); Calcium 9.4 mg/dL (8.4-10.2); Carbon Dioxide 19 mmol/L (22-29); Chloride 112 mmol/L (96-108); Iron 9 mcg/dL (30-160); Percent Iron Saturation 4 % (15-50); Potassium 5.2 mmol/L (3.3-5.1); Sodium 142 mmol/L (135-145); Total Iron Binding Capacity 234 mcg/dL (228-428); Unsaturated Iron Binding 225 ug/dL
[2023-12-28 10:02] LABS: Ferritin 378 ng/mL (10-250)
== END 2023-12-28 07:39 | disposition home or self-care (01) ==
LOC: HO.LAB 07:38
PROVIDERS: Visit Provider Internal Medicine Nephrology
DX: N18.32 Chronic kidney disease, stage 3b (principal); N18.31 Chronic kidney disease, stage 3a; N18.30 Chronic kidney disease, stage 3 unspecified; I10 Essential (primary) hypertension; N18.9 Chronic kidney disease, unspecified; D63.1 Anemia in chronic kidney disease
CPT/HCPCS: 36415; 80051; 82306; 82310; 82728; 83540; 84520; 85025; 99212

== ENCOUNTER 2023-12-28 13:38 | Outpatient (AMB) | payer MEDICARE, MEDICAID, SELFPAY ==
--- NOTE | 2023-12-28 13:40 | HO.NEPHOV ---
Vital Signs 12/28/23 13:47 Height 5 ft 8 in Weight 168 lb BMI 25.5 BP 152/80 H Blood Pressure Location Lt brachial Position Sitting Pulse 67 Pulse Source Pulse Oximeter Pulse Oximetry (%) 99 Oxygen Delivery Method Room Air Intake Visit Reasons: 2 mon follow up-Conf [place] Picker Required: No Accompanied by: Self / Same As Patient Allergies amoxicillin Allergy (Unknown, Verified 12/28/23 13:46) Unknown hydrochlorothiazide Allergy (Unknown, Verified 12/28/23 13:46) Unknown Chase inhibitors Allergy (Unknown, Uncoded 04/04/23 10:42) Unknown latex Allergy (Unknown, Uncoded 04/01/19 00:00) rash HPI Comments Details: Yecenia was seen in follow-up of her chronic kidney disease and hypertension. She is feeling tired with less appetite.She has been pale with dropping Hb, edema and dropping iron saturations even after some iron transfusions. She recently had cologuard positivity but has not had any colonoscopies. She denies chest pain or syncope but had intermittent palpitations & dizziness. She has H/O PRBC transfusion.(last blood transfusion was in October 2018 at [facility] in [place], [place]). She has H/O SD. She wants her B12 checked. Several weeks ago, she went to see a foot doctor for edema. She had X-rays. As per patient, drapery head former thought perhaps her veins weren't flowing blood to her feet & thery are making an appt to see a vein specialist . She also has been having pain in her legs. She also has been having tinnitus for over a week. She can't walk in the morning when getting out of the bed. Then she uses a walker, take three 500 mgs of Tylenol and 1 aspirin. The pain in her feet is excruciating, but she walk on them. It gets relieved about 3 hours. Her oldest nephew has the sickle cell trait. She avoids nonsteroidal anti-inflammatory medications. She maintains good hydration. He is compliant with her current medication regimen. She has seen Dr. Dawson for her coronary artery disease. She does not have any nausea, vomiting or diarrhea. She is overwhelmed due to personal health issues, moms care etc. She had blood work done which showed dropping Hb but no serum creatinine was done in that sample. [facility] Medical History (Updated 04/04/23 @ 11:21 by London Boyer MD) Chronic kidney disease Anemia in chronic kidney disease Surgical History (Updated 12/28/23 @ 13:44 by Acacia Bruno MA) History of partial hysterectomy Social History Alcohol intake: never Patient Tobacco Use Status: Never used Tobacco Review of Systems Const All systems reviewed & are unremarkable except as noted in HPI and below Physical Exam Vital Signs: Last Vital Signs Pulse 67 12/28/23 13:47 BP 152/80 H 12/28/23 13:47 Pulse Ox 99 12/28/23 13:47 Oxygen Delivery Method Room Air 12/28/23 13:47 BMI result Body Mass Index 25.5 Const Other: Pale General: comfortable and no acute distress Orientation/consciousness: patient oriented x3 HEENT Head: Yes normocephalic Mouth: Normal oral and palatal mucosa present Eyes EOM: EOMs intact bilaterally Neck Neck: Yes supple Resp Auscultation: clear to auscultation bilaterally Cardio Jugular venous distension: no JVD Rate: regular rate GI Palpation (GI): Soft to palpation Auscultation: normal bowel sounds General: Yes no CVA tenderness Back/Spine/Pelvis Back: no CVA tenderness Skin General skin exam: no rashes or lesions noted Neuro General: patient oriented x3 and moves all extremities Extrem General: Yes pedal edema Results Reviewed Nephrology Results: Hgb 6.2 g/dl (12.0-16.0) L* 12/28/23 WBC 6.5 X10*3/uL (4.8-10.8) 12/28/23 Plt Count 444 X10*3/uL (160-400) H 12/28/23 Sodium 142 mmol/L (135-145) 12/28/23 Potassium 5.2 mmol/L (3.3-5.1) H 12/28/23 Chloride 112 mmol/L (96-108) H 12/28/23 Carbon Dioxide 19 mmol/L (22-29) L 12/28/23 BUN 54 mg/dL (9-16) H 12/28/23 Creatinine 2.70 mg/dL (0.5-1.4) H 10/18/23 Calcium 9.4 mg/dL (8.4-10.2) 12/28/23 Phosphorus 3.7 mg/dL (2.7-4.5) 10/18/23 Assessment & Plan Assessment & Plan (1) CKD (chronic kidney disease) stage 3, GFR 30-59 ml/min: Code(s): N18.30 - Chronic kidney disease, stage 3 unspecified Category: Medical Qualifiers: Chronic kidney disease stage 3 subtype: stage 3a (GFR 45-59) Qualified Code(s): N18.31 - Chronic kidney disease, stage 3a (2) Anemia in chronic kidney disease: Code(s): N18.9 - Chronic kidney disease, unspecified; D63.1 - Anemia in chronic kidney disease Category: Medical Qualifiers: Chronic kidney disease stage: stage 3 (moderate) Chronic kidney disease stage 3 subtype: stage 3b (GFR 30-44) Qualified Code(s): N18.32 - Chronic kidney disease, stage 3b; D63.1 - Anemia in chronic kidney disease (3) Hypertension: Code(s): I10 - Essential (primary) hypertension Category: Medical Qualifiers: Hypertension type: primary hypertension Qualified Code(s): I10 - Essential (primary) hypertension (4) Iron deficiency: Code(s): E61.1 - Iron deficiency Category: Medical Plan Yecenia has chronic kidney disease and longstanding hypertension. 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 She is known to have coronary artery disease and has undergone angioplasty and stenting. She has edema. She is pale. She has not had upper or lower endoscopy even though she had cologuard positivity. She needs PRBC , upper and lower endoscopy. She needs B12/folate levels, hemolytic work up, abdominal imaging & iron transfusions. She may need Hematology consult +/- bone marrow biopsyShe has been having edema for unknown reason. She needs ECHO given H/O SD. ( ? has HF due to cardiomyopathy or due to severe anemia). Given joint pains , her serum uric acid needs to be checked. She needs to maintain low-sodium diet. I suggested hospitalization and work up given she has potential GIB given CKD, being on anti coagulation and cologuard positivity. She will come to ER for further evaluation and hospitalization for continued management. Orders: Orders Creatinine 12/28/23 D63.1 - Anemia in chronic kidney disease, N18.31 - Chronic kidney disease, stage 3a, N18.32 - Chronic kidney disease, stage 3b Blood Urea Nitrogen 1 Month D63.1 - Anemia in chronic kidney disease, N18.31 - Chronic kidney disease, stage 3a, N18.32 - Chronic kidney disease, stage 3b Complete Blood Count Auto Diff 1 Month D63.1 - Anemia in chronic kidney disease, N18.31 - Chronic kidney disease, stage 3a, N18.32 - Chronic kidney disease, stage 3b Electrolytes 1 Month D63.1 - Anemia in chronic kidney disease, N18.31 - Chronic kidney disease, stage 3a, N18.32 - Chronic kidney disease, stage 3b Coding Level of Care Code Est Pt Level 4 (90600) Diagnoses Stage 3a chronic kidney disease N18.31 Chronic kidney disease stage 3 subtype: stage 3a (GFR 45-59) Anemia in stage 3b chronic kidney disease N18.32; D63.1 Chronic kidney disease stage: stage 3 (moderate) Chronic kidney disease stage 3 subtype: stage 3b (GFR 30-44) Primary hypertension I10 Hypertension type: primary hypertension Iron deficiency E61.1
[2023-12-28 13:47] VITALS: BP 152/80; PULSE 67; O2SAT 99; BMI 25.5
== END 2023-12-28 14:25 | disposition home or self-care (01) ==
PROVIDERS: Visit Provider Internal Medicine Nephrology
DX: I12.9 Hypertensive chronic kidney disease with stage 1 through stage 4 chronic kidney disease, or unspecified chronic kidney disease (principal); N18.32 Chronic kidney disease, stage 3b; D63.1 Anemia in chronic kidney disease; E61.1 Iron deficiency
CPT/HCPCS: 99214

== ENCOUNTER 2024-01-01 13:02 | Emergency (ER) | payer MEDICARE, MEDICAID, SELFPAY ==
--- NOTE | 2024-01-01 13:57 | ED.GENADULT ---
HPI - General Adult General Chief complaint: Recheck/Abnormal Lab/Rx Stated complaint: blood transfusion Time Seen by Provider: 01/01/24 18:50 Source: patient Mode of arrival: ambulatory Limitations: no limitations History of Present Illness ED Provider: Audrey Berrios NP HPI narrative: Patient is a 73-year-old female who presents emergency department for evaluation. She reports that she follows with her annealing furnace tender Dr. Boyer. She reports that she was advised by him that she should come to emergency department to be admitted for 3 days so that she may receive a blood transfusion and also have an endoscopy. 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 She states that she has been feeling overall fatigued lately, having increasing swelling to her lower extremities and states ?I know I am anemic I know it is low the iron transfusions are helping). She admits to a history of a prior blood transfusion in 2019. She reports no active bleeding. Related Data Home Medications ?Medication ?Instructions ?Recorded ?Confirmed amlodipine 5 mg tablet 5 mg PO DAILY 01/30/23 apixaban 2.5 mg tablet (Eliquis) 2.5 mg PO BID 01/30/23 aspirin 81 mg tablet,delayed 81 mg PO DAILY 01/30/23 release isosorbide mononitrate 30 mg 30 mg PO TID 02/07/23 tablet,extended release 24 hr spironolactone 25 mg tablet 12.5 mg PO DAILY 04/04/23 04/04/23 clonidine HCl 0.1 mg tablet 0.1 mg PO BID 05/09/23 Previous Rx's ?Medication ?Instructions ?Recorded sodium polystyrene sulfonate 30 g PO .q weekly 90 days #453.6 05/09/23 grams metoprolol tartrate 50 mg tablet 75 mg (1.5 x 50 mg) PO BID #270 09/21/23 tabs Allergies Allergy/AdvReac Type Severity Reaction Status Date / Time amoxicillin Allergy Unknown Unknown Verified 01/01/24 14:01 hydrochlorothiazide Allergy Unknown Unknown Verified 01/01/24 14:01 Chase inhibitors Allergy Unknown Unknown Uncoded 04/04/23 10:42 latex Allergy Unknown rash Uncoded 04/01/19 00:00 FORMERLY [facility] Past Medical History Medical History (Updated 01/01/24 @ 20:11 by Audrey Berrios CNP) Chronic kidney disease Anemia in chronic kidney disease Surgical History (Updated 12/28/23 @ 13:44 by Acacia Bruno MA) History of partial hysterectomy Social History Social History Alcohol intake: never Patient Tobacco Use Status: Never used Tobacco Advance Directives: No Advance Directives Information Provided: No Do you have a plan to hurt others: No Plan Physical Exam ED Vital Signs: Vital Signs - 24 hr 01/01/24 13:59 01/01/24 18:59 01/01/24 20:43 Temperature 98.0 F 98.1 F 98.0 F Pulse Rate 72 57 70 Respiratory Rate 18 16 14 Blood Pressure 197/80 H 164/55 H 188/72 H Pulse Oximetry 100 98 100 Oxygen Delivery Method Room Air Room Air Room Air BMI result Body Mass Index 24.9 Course Course Course Narrative: This is a rapid medical exam performed by Sam Magallon NP: Additional HPI, ROS, PE not included below will be deferred to primary provider. Patient is a 73-year-old female with history of HTN, CKD stage 3, anemia, CAD with angioplasty and stenting presenting from Dr. Boyer's office for blood transfusion. Has had fatigue, decreased appetite, dropping Hb, palpitations and dizziness. Initially wanted outpatient management as she cares for her mother but is now agreeable to admission. Plan: labs including T&S, EKG Reevaluation(s) Time: 20:09 Medical Decision Making Medical Decision Making MDM Narrative: Patient is a 73-year-old female with past medical history of CKD, anemia and chronic disease presenting to emergency department for evaluation as per HPI. Initially during her triage it seemed as though she was amenable to inpatient level of care. However that does not appear to be the case. She is adamant that she can not be admitted inpatient. She is requesting a blood transfusion and to be discharged promptly after that, she reports that she plans to follow-up outpatient to have an endoscopy with gastroenterology as well as ?the ultrasound of my heart?. I was ready to discuss the transfusion consent form with patient, I did advise her that the transfusion may take a few hours, she then became quite upset reporting it is already late at night and she needs to get back home with her mother. Has no means of transportation as her mother is wheelchair-bound and has to use a chair van service. I had an at length discussion with her trying to figure out alternative resources to get her and her mother home. I spoke with our charge nurse who states that she can provide the patient with a lift, given that the left provider would be amenable to mother's wheelchair being placed in the back seat, however the patient states that she is not able to get her mother in and out of a car therefore she will be leaving at this time against medical advice. I discussed with her the severity of her illness, and if her anemia progressively worsens, this may potentially be life-threatening. She verbalizes understanding of this, she is conscious alert and oriented, circumstances are quite unfortunate, however she is leaving against medical advice at this time. I have discussed with her strict return precautions and she verbalized understanding of this. Differential Diagnosis Differential Diagnoses: The differential diagnosis associated with the presentation includes (JUANA, anemia of chronic disease, CKD) Admission/Observation Consideration of admission/observation: Escalation of care including admission/observation considered (See narrative above) Lab Data MDM Lab Attestation statement: I reviewed the patient's lab results. No leukocytosis, acute on chronic microcytic anemia, no thrombocytopenia. No electrolyte derangement. No JHONY. 01/01/24 14:33 01/01/24 14:33 Labs: Lab Results 01/01/24 Range/Units 14:33 WBC 6.2 (4.8-10.8) X10*3/uL RBC 2.83 L (4.20-5.50) X10*6/uL Hgb 6.2 L* (12.0-16.0) g/dl Hct 23.3 L (37.0-47.0) % MCV 82.3 (80.0-98.0) fL MCH 21.9 L (27.0-33.0) pg MCHC 26.6 L (31.0-35.0) g/dl RDW 21.1 H (11.0-16.0) % Plt Count 433 H (160-400) X10*3/uL MPV 9.4 (9.4-12.3) fL Immature Gran % (Auto) 0.2 (0.0-0.4) % Neut % (Auto) 62.7 (45-73) % Lymph % (Auto) 24.7 (20-40) % Wood % (Auto) 10.1 (2-11) % Eos % (Auto) 1.5 (0-4) % Baso % (Auto) 0.8 (0-2) % Lymph # (Auto) 1.5 (1.2-4.9) X10*3/uL Wood # (Auto) 0.6 (0.1-1.2) X10*3/uL Eos # (Auto) 0.1 (0.0-0.4) X10*3/uL Baso # (Auto) 0.1 (0.0-0.2) X10*3/uL Abs Immat Gran (auto) 0.01 (0.00-0.03) X10*3/uL Absolute Neuts (auto) 3.9 (2.0-8.3) x10*3/uL Absolute Nucleated RBC 0.000 (0.0-0.012) X10*3/uL Nucleated RBC % (auto) 0.0 (0.0-0.2) /100WBC Sodium 143 (135-145) mmol/L Potassium 5.1 (3.3-5.1) mmol/L Chloride 110 H (96-108) mmol/L Carbon Dioxide 22 (22-29) mmol/L Anion Gap 16 (12-20) BUN 44 H (9-16) mg/dL Creatinine 2.43 H (0.5-1.4) mg/dL Estim Creat Clear Calc 21.1 Estimated GFR 20 Random Glucose 103 (60-115) mg/dL Calcium 9.8 (8.4-10.2) mg/dL Total Bilirubin 0.2 (0.0-1.0) mg/dL AST 16 (5-31) U/L ALT 7 (0-31) U/L Alkaline Phosphatase 113 (39-117) U/L Total Protein 7.9 (6.5-8.0) g/dL Albumin 3.7 (3.5-5.0) g/dL Urine Color Yellow Urine Appearance Clear Urine pH 5.0 (5.0-9.0) Ur Specific [place] 1.020 (1.005-1.025) Urine Protein 300 (3+) H (Neg-Trace) mg/dL Urine Glucose (UA) Negative (Negative) mg/dL Urine Ketones Negative (Negative) mg/dL Urine Blood Negative (Negative) Urine Nitrite Negative (Negative) Ur Leukocyte Esterase Negative (Negative) Urine RBC 0-2 (0-2) /HPF Urine WBC 0-5 (0-5) /HPF Ur Squamous Epith Cells 0-2 (0-2) /HPF Urine Bacteria Trace (None Seen) Hyaline Casts 3-5 (0-2) /LPF Blood Type B Positive Antibody Screen POSITIVE Antibody Identification Anti-K Crossmatch (AHG) See Detail Independent Interpretation I performed an independent interpretation of an: EKG Interpretation: Normal sinus rhythm with ventricular rate of 66, QTC 410, no ST elevation, no ST depression. External Record Review External record reviewed: Outpatient record Chronic Conditions Patient?s care impacted by: Other (See narrative above) Discharge Plan Discharge Clinical Impression: Anemia in chronic kidney disease Qualifiers: Chronic kidney disease stage: stage 3 (moderate) Chronic kidney disease stage 3 subtype: stage 3b (GFR 30-44) Qualified Code(s): N18.32 - Chronic kidney disease, stage 3b CKD (chronic kidney disease) stage 3, GFR 30-59 ml/min Qualifiers: Chronic kidney disease stage 3 subtype: stage 3a (GFR 45-59) Qualified Code(s): N18.31 - Chronic kidney disease, stage 3a Patient Disposition: Left Against Medical Advice Additional Instructions: As discussed, it is recommended that you receive a blood transfusion due to her significant anemia and your associated symptoms. Furthermore, based on the recommendation from your kidney doctor it was recommended that you be admitted into the hospital. At this time you are leaving against medical advice, worsening of your anemia can be life-threatening. I recommend that you return to emergency department promptly with any new or worsening symptoms or concerns. You should contact your annealing furnace tender/pCO2 he 1st thing tomorrow morning to coordinate care outpatient. Prescriptions: No Action isosorbide mononitrate 30 mg tablet extended release 24 hr 30 mg PO TID Eliquis 2.5 mg tablet 2.5 mg PO BID aspirin 81 mg tablet,delayed release (DR/EC) 81 mg PO DAILY amlodipine 5 mg tablet 5 mg PO DAILY clonidine HCl 0.1 mg tablet 0.1 mg PO BID epoetin walt 10,000 unit/mL solution 20,000 unit subcut ONCE Qty: 2 0RF spironolactone 25 mg tablet 12.5 mg PO DAILY sodium polystyrene sulfonate Powder 30 g PO .q weekly 90 Days Qty: 453.6 3RF metoprolol tartrate 50 mg tablet 75 mg PO BID Qty: 270 1RF Referrals: London Boyer MD [Physician] - Stand Alone Forms: Against Medical Advice Interventions: ED Discharge Assessment Last Done: 01/01/24 20:43 Discharge Date/Time: 01/01/24 20:44 Print Language: Korean
[2024-01-01 13:59] VITALS: BP 197/80; PULSE 72; RESP 18; TEMP 36.7; O2SAT 100; BMI 24.9
--- NOTE | 2024-01-01 14:01 | ECG_ITS ---
Test Reason : weak, dizzy Blood Pressure : / mmHG Vent. Rate : 066 BPM Atrial Rate : 066 BPM P-R Int : 150 ms QRS Dur : 086 ms QT Int : 392 ms P-R-T Axes : 042 001 013 degrees QTc Int : 410 ms Normal sinus rhythm Cannot rule out Anterior infarct , age undetermined Abnormal ECG No previous ECGs available Referred By: Tierney Magallon Electronically Signed By:Eulalio Herrera
[2024-01-01 14:38] LABS: MANUAL DIFF FLAG NO
[2024-01-01 14:39] LABS: Basophils Absolute Auto 0.1 X10*3/uL (0.0-0.2); Basophils Percent Auto 0.8 % (0-2); Eosinophils Absolute Auto 0.1 X10*3/uL (0.0-0.4); Eosinophils Percent Auto 1.5 % (0-4); Hematocrit 23.3 % (37.0-47.0); Imm Gran Abs Auto 0.01 X10*3/uL (0.00-0.03); Imm Gran Pct Auto 0.2 % (0.0-0.4); Lymphocytes Absolute Auto 1.5 X10*3/uL (1.2-4.9); Lymphocytes Percent Auto 24.7 % (20-40); Mean Corpuscular HGB Conc 26.6 g/dl (31.0-35.0); Mean Corpuscular Hemoglobin 21.9 pg (27.0-33.0); Mean Corpuscular Volume 82.3 fL (80.0-98.0); Mean Platelet Volume 9.4 fL (9.4-12.3); Monocytes Absolute Auto 0.6 X10*3/uL (0.1-1.2); Monocytes Percent Auto 10.1 % (2-11); Neutrophils Absolute Auto 3.9 x10*3/uL (2.0-8.3); Neutrophils Percent Auto 62.7 % (45-73); Platelet Count 433 X10*3/uL (160-400); Red Blood Count 2.83 X10*6/uL (4.20-5.50); Red Cell Distribution Width 21.1 % (11.0-16.0); White Blood Count 6.2 X10*3/uL (4.8-10.8)
[2024-01-01 14:41] LABS: Appearance Urine Clear; Color Urine Yellow; Glucose Urine UA Negative (Negative); Leukocyte Esterase Urine Negative (Negative); Nitrite Urine Negative (Negative); UMIC TRIGGER UACC YES; Urine Blood Negative (Negative); Urine Ketones Negative (Negative); Urine Protein 300 (3+) mg/dL (Neg-Trace)
[2024-01-01 14:44] LABS: Hemoglobin 6.2 g/dl (12.0-16.0)
[2024-01-01 14:46] LABS: Bacteria Urine Trace (None Seen); RBC Urine 0-2 /HPF (0-2); Squamous Epithelial Cell Urine 0-2 /HPF (0-2); WBC Urine 0-5 /HPF (0-5)
[2024-01-01 14:57] LABS: Alanine Aminotransferase 7 U/L (0-31); Albumin Level 3.7 g/dL (3.5-5.0); Alkaline Phosphatase 113 U/L (39-117); Anion Gap 16 (12-20); Aspartate Amino Transferase 16 U/L (5-31); Bilirubin Total 0.2 mg/dL (0.0-1.0); Blood Urea Nitrogen 44 mg/dL (9-16); Calcium 9.8 mg/dL (8.4-10.2); Carbon Dioxide 22 mmol/L (22-29); Chloride 110 mmol/L (96-108); Creatinine Clr Calc Pharmacy 21.1; Estimated Glomerular Filt Rate 20; Glucose Random 103 mg/dL (60-115); Potassium 5.1 mmol/L (3.3-5.1); Sodium 143 mmol/L (135-145); Total Protein 7.9 g/dL (6.5-8.0)
[2024-01-01 18:59] VITALS: BP 164/55; PULSE 57; RESP 16; TEMP 36.7; O2SAT 98
--- NOTE | 2024-01-01 18:59 | MHC.EDTECH ---
This pct just assumed care of Patient ,patient was change into hospital attire ,Patient was hooked up to electronic device monitor ,warm blanket given and Call mora within Pt reach .
--- NOTE | 2024-01-01 19:13 | MHC.EDTECH ---
This pct just assumed care of Patient ,Patient was change into hospital attire ,and hooked up to clinical research monitor ,Vitals taken ,Call mora within Pt reach ,Plan of care continue .
[2024-01-01 20:43] VITALS: BP 188/72; PULSE 70; RESP 14; TEMP 36.7; O2SAT 100
== END 2024-01-01 20:44 | disposition left against medical advice (07) ==
PROVIDERS: Registered Nurse Emergency; Emergency Provider Emergency Medicine
DX: I12.9 Hypertensive chronic kidney disease with stage 1 through stage 4 chronic kidney disease, or unspecified chronic kidney disease (principal); D63.1 Anemia in chronic kidney disease; N18.30 Chronic kidney disease, stage 3 unspecified; M79.89 Other specified soft tissue disorders; R53.83 Other fatigue; Z79.899 Other long term (current) drug therapy
CPT/HCPCS: 36415; 80053; 81001; 85025; 86850; 86870; 86900; 86901; 86902; 86920; 86922; 93005; 99283; 99284

== ENCOUNTER → 2024-01-01 14:01 | Outpatient (BNV) | payer MEDICARE, MEDICAID, SELFPAY | PROVIDERS: Emergency Provider Emergency Medicine; Visit Provider Internal Medicine Cardiovascular Disease | DX: R42 Dizziness and giddiness (principal); R53.1 Weakness; R94.31 Abnormal electrocardiogram [ECG] [EKG] | CPT/HCPCS: 93010 ==

== ENCOUNTER 2024-01-09 08:58 | Outpatient (REF) | payer MEDICARE, MEDICAID, SELFPAY | END 2024-01-09 08:59 | disposition home or self-care (01) | LOC: HO.LAB 08:58 | PROVIDERS: Visit Provider Internal Medicine Nephrology | DX: Z13.89 Encounter for screening for other disorder (principal) | CPT/HCPCS: 86850; 86870; 86900; 86901 ==

== ENCOUNTER 2024-01-10 07:18 | Outpatient (RCR) | payer MEDICARE, MEDICAID, SELFPAY ==
[2024-01-10] VITALS (10 sets, daily range): BP systolic 124–153; BP diastolic 41–51; PULSE 55–66; RESP 16–20; TEMP 36.8–37.3; O2SAT 98–99; BMI 25.0
--- NOTE | 2024-01-10 07:40 | HO.INF ---
blood transfusion consent signed by pt
--- NOTE | 2024-01-10 07:45 | HO.INF ---
blood bank called for pt banding
== END 2024-01-10 12:00 | disposition home or self-care (01) ==
LOC: HO.INF 07:18
PROVIDERS: Visit Provider Internal Medicine Nephrology
DX: K92.2 Gastrointestinal hemorrhage, unspecified (principal); N18.32 Chronic kidney disease, stage 3b; D63.1 Anemia in chronic kidney disease
CPT/HCPCS: 36430; 86850; 86870; 86900; 86901; 86902; 86920; 86922; P9016

== ENCOUNTER 2024-01-25 09:55 | Outpatient (REF) | payer MEDICARE, MEDICAID, SELFPAY ==
[2024-01-25 10:15] LABS: MANUAL DIFF FLAG NO
[2024-01-25 10:39] LABS: Basophils Percent Auto 0.3 % (0-2); Eosinophils Absolute Auto 0.1 X10*3/uL (0.0-0.4); Hemoglobin 8.3 g/dl (12.0-16.0); Imm Gran Abs Auto 0.04 X10*3/uL (0.00-0.03); Imm Gran Pct Auto 0.5 % (0.0-0.4); Lymphocytes Absolute Auto 2.1 X10*3/uL (1.2-4.9); Lymphocytes Percent Auto 26.5 % (20-40); Mean Corpuscular HGB Conc 27.7 g/dl (31.0-35.0); Mean Corpuscular Hemoglobin 23.2 pg (27.0-33.0); Mean Platelet Volume 10.3 fL (9.4-12.3); Monocytes Absolute Auto 0.7 X10*3/uL (0.1-1.2); Monocytes Percent Auto 8.7 % (2-11); Neutrophils Absolute Auto 4.9 x10*3/uL (2.0-8.3); Platelet Count 337 X10*3/uL (160-400); Red Blood Count 3.57 X10*6/uL (4.20-5.50); Red Cell Distribution Width 22.6 % (11.0-16.0); White Blood Count 7.8 X10*3/uL (4.8-10.8)
[2024-01-25 11:33] LABS: Anion Gap 10 (12-20); Blood Urea Nitrogen 52 mg/dL (9-16); Carbon Dioxide 26 mmol/L (22-29); Chloride 112 mmol/L (96-108); Estimated Glomerular Filt Rate 25; Sodium 143 mmol/L (135-145)
== END 2024-01-25 09:56 | disposition home or self-care (01) ==
LOC: HO.LAB 09:55
PROVIDERS: Visit Provider Internal Medicine Nephrology
DX: I12.9 Hypertensive chronic kidney disease with stage 1 through stage 4 chronic kidney disease, or unspecified chronic kidney disease (principal); N18.32 Chronic kidney disease, stage 3b; D63.1 Anemia in chronic kidney disease
CPT/HCPCS: 36415; 80051; 82565; 84520; 85025

== ENCOUNTER 2024-02-01 11:04 | Outpatient (AMB) | payer MEDICARE, MEDICAID, SELFPAY ==
--- NOTE | 2024-02-01 11:13 | HO.NEPHOV ---
Vital Signs 02/01/24 11:17 Height 5 ft 8 in Weight 170 lb 6 oz BMI 25.9 BP 150/90 H Blood Pressure Location Rt brachial Position Sitting Pulse 56 Pulse Source Pulse Oximeter Pulse Oximetry (%) 99 Oxygen Delivery Method Room Air Intake Visit Reasons: Anemia in CKD-LVM Accompanied by: Self / Same As Patient Allergies amoxicillin Allergy (Unknown, Verified 02/01/24 11:17) Unknown hydrochlorothiazide Allergy (Unknown, Verified 02/01/24 11:17) Unknown Chase inhibitors Allergy (Unknown, Uncoded 04/04/23 10:42) Unknown latex Allergy (Unknown, Uncoded 04/01/19 00:00) rash HPI Comments Details: Yecenia was seen in follow-up of her chronic kidney disease and hypertension. She had been pale with dropping Hb, edema and dropping iron saturations even after some iron transfusions. She recently had cologuard positivity but has not had any colonoscopies. She denies chest pain or syncope but had intermittent palpitations & dizziness. She has H/O PRBC transfusion.(last blood transfusion was in October 2018 at [facility] in [place], [place]). Recently she was given 2 Units of PRBC. She has H/O IN. She has a ECHO booked for next week. She avoids nonsteroidal anti-inflammatory medications. She maintains good hydration. He is compliant with her current medication regimen. She has seen Dr. Dawson for her coronary artery disease. She does not have any nausea, vomiting or diarrhea. She is overwhelmed due to personal health issues, moms care etc. [facility] Medical History (Updated 01/08/24 @ 09:38 by London Boyer MD) Chronic kidney disease Anemia in chronic kidney disease Surgical History History of partial hysterectomy Social History Alcohol intake: never Patient Tobacco Use Status: Never used Tobacco Review of Systems Const All systems reviewed & are unremarkable except as noted in HPI and below Physical Exam Vital Signs: Last Vital Signs Pulse 56 02/01/24 11:17 BP 150/90 H 02/01/24 11:17 Pulse Ox 99 02/01/24 11:17 Oxygen Delivery Method Room Air 02/01/24 11:17 BMI result Body Mass Index 25.9 Const General: comfortable and no acute distress Orientation/consciousness: patient oriented x3 HEENT Head: Yes normocephalic Mouth: Normal oral and palatal mucosa present Eyes EOM: EOMs intact bilaterally Neck Neck: Yes supple Resp Auscultation: clear to auscultation bilaterally Cardio Jugular venous distension: no JVD Rate: regular rate Heart sounds: Murmur heart sound present GI Palpation (GI): Soft to palpation Auscultation: normal bowel sounds General: Yes no CVA tenderness Back/Spine/Pelvis Back: no CVA tenderness Skin General skin exam: no rashes or lesions noted Neuro General: patient oriented x3 and moves all extremities Extrem General: Yes edema Office Meds epoetin walt-epbx 10,000 unit/mL injection solution Performing Provider: London Boyer MD Performing Location: [facility] Administered by: London Boyer MD on 02/01/24 11:32 Dose Route Admin Location Dispensed Lot Number Expiration Date [facility] Baggage Security Checker 40,000 unit subcut LUE 4 mL [id number] 06/19/25 0908-3659-64 [employer] [place] PHARM Results Reviewed Nephrology Results: Hgb 8.3 g/dl (12.0-16.0) L 01/25/24 WBC 7.8 X10*3/uL (4.8-10.8) 01/25/24 Plt Count 337 X10*3/uL (160-400) 01/25/24 Sodium 143 mmol/L (135-145) 01/25/24 Potassium 5.0 mmol/L (3.3-5.1) 01/25/24 Chloride 112 mmol/L (96-108) H 01/25/24 Carbon Dioxide 26 mmol/L (22-29) 01/25/24 BUN 52 mg/dL (9-16) H 01/25/24 Creatinine 1.98 mg/dL (0.5-1.4) H 01/25/24 Calcium 9.8 mg/dL (8.4-10.2) 01/01/24 Phosphorus 3.7 mg/dL (2.7-4.5) 10/18/23 Urine Protein 300 (3+) mg/dL (Neg-Trace) H 01/01/24 Assessment & Plan Assessment & Plan (1) Anemia in chronic kidney disease: Code(s): N18.9 - Chronic kidney disease, unspecified; D63.1 - Anemia in chronic kidney disease Category: Medical Qualifiers: Chronic kidney disease stage: stage 3 (moderate) Chronic kidney disease stage 3 subtype: stage 3b (GFR 30-44) Qualified Code(s): N18.32 - Chronic kidney disease, stage 3b; D63.1 - Anemia in chronic kidney disease (2) CKD (chronic kidney disease) stage 3, GFR 30-59 ml/min: Code(s): N18.30 - Chronic kidney disease, stage 3 unspecified Category: Medical Qualifiers: Chronic kidney disease stage 3 subtype: stage 3a (GFR 45-59) Qualified Code(s): N18.31 - Chronic kidney disease, stage 3a (3) Hypertension: Code(s): I10 - Essential (primary) hypertension Category: Medical Qualifiers: Hypertension type: primary hypertension Qualified Code(s): I10 - Essential (primary) hypertension Plan Yecenia has chronic kidney disease and longstanding hypertension. 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 She is known to have coronary artery disease and has undergone angioplasty and stenting. She has edema. I have ordered 40 mg lasix daily for next 10 days. She has not had upper or lower endoscopy even though she had cologuard positivity. She needs upper and lower endoscopy. I have ordered GI consult. I will arrange 2 units of PRBC. She may need Hematology consult +/- bone marrow biopsy. She needs to maintain low-sodium diet. She was also given [id number] Unit of Procrit today. Her renal functions are stable. Follow up blood work ordered Orders: Orders Complete Blood Count Auto Diff 01/25/24 D63.1 - Anemia in chronic kidney disease, I10 - Essential (primary) hypertension, N18.31 - Chronic kidney disease, stage 3a, N18.32 - Chronic kidney disease, stage 3b Creatinine 01/25/24 D63.1 - Anemia in chronic kidney disease, I10 - Essential (primary) hypertension, N18.31 - Chronic kidney disease, stage 3a, N18.32 - Chronic kidney disease, stage 3b AMB Epoetin Injection Practice Supplied Today D63.1 - Anemia in chronic kidney disease, N18.32 - Chronic kidney disease, stage 3b Complete Blood Count Auto Diff 4 Weeks D63.1 - Anemia in chronic kidney disease, I10 - Essential (primary) hypertension, N18.31 - Chronic kidney disease, stage 3a, N18.32 - Chronic kidney disease, stage 3b Electrolytes 4 Weeks D63.1 - Anemia in chronic kidney disease, I10 - Essential (primary) hypertension, N18.31 - Chronic kidney disease, stage 3a, N18.32 - Chronic kidney disease, stage 3b Blood Urea Nitrogen 24 D63.1 - Anemia in chronic kidney disease, I10 - Essential (primary) hypertension, N18.31 - Chronic kidney disease, stage 3a, N18.32 - Chronic kidney disease, stage 3b Electrolytes 1224 D63.1 - Anemia in chronic kidney disease, I10 - Essential (primary) hypertension, N18.31 - Chronic kidney disease, stage 3a, N18.32 - Chronic kidney disease, stage 3b Creatinine 4 Weeks D63.1 - Anemia in chronic kidney disease, I10 - Essential (primary) hypertension, N18.31 - Chronic kidney disease, stage 3a, N18.32 - Chronic kidney disease, stage 3b Blood Urea Nitrogen 4 Weeks D63.1 - Anemia in chronic kidney disease, I10 - Essential (primary) hypertension, N18.31 - Chronic kidney disease, stage 3a, N18.32 - Chronic kidney disease, stage 3b Alanine Aminotransferase 4 Months D63.1 - Anemia in chronic kidney disease, I10 - Essential (primary) hypertension, N18.31 - Chronic kidney disease, stage 3a, N18.32 - Chronic kidney disease, stage 3b Aspartate Amino Transferase 4 Months D63.1 - Anemia in chronic kidney disease, I10 - Essential (primary) hypertension, N18.31 - Chronic kidney disease, stage 3a, N18.32 - Chronic kidney disease, stage 3b Medications: New furosemide (Lasix) 40 mg PO DAILY 10 tabs 0RF Coding Level of Care Code Est Pt Level 4 (12256) Diagnoses Anemia in stage 3b chronic kidney disease N18.32; D63.1 Chronic kidney disease stage: stage 3 (moderate) Chronic kidney disease stage 3 subtype: stage 3b (GFR 30-44) Stage 3a chronic kidney disease N18.31 Chronic kidney disease stage 3 subtype: stage 3a (GFR 45-59) Primary hypertension I10 Hypertension type: primary hypertension
[2024-02-01 11:17] VITALS: BP 150/90; PULSE 56; O2SAT 99; BMI 25.9
== END 2024-02-01 11:49 | disposition home or self-care (01) ==
PROVIDERS: Visit Provider Internal Medicine Nephrology
DX: I12.9 Hypertensive chronic kidney disease with stage 1 through stage 4 chronic kidney disease, or unspecified chronic kidney disease (principal); N18.32 Chronic kidney disease, stage 3b; D63.1 Anemia in chronic kidney disease
CPT/HCPCS: 99214

== ENCOUNTER → 2024-02-01 11:04 | Outpatient (BNVA) | payer MEDICARE, MEDICAID, SELFPAY | PROVIDERS: Visit Provider Internal Medicine Nephrology | DX: I12.9 Hypertensive chronic kidney disease with stage 1 through stage 4 chronic kidney disease, or unspecified chronic kidney disease (principal); N18.32 Chronic kidney disease, stage 3b; D63.1 Anemia in chronic kidney disease | CPT/HCPCS: 96372; 99212; Q5106 ==

== ENCOUNTER → 2024-02-06 11:13 | Outpatient (REF) | payer MEDICARE, MEDICAID, SELFPAY ==
--- NOTE | 2024-02-06 11:23 | CA_ITS ---
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 The calculated ejection fraction is 58% by biplane method. - The basal inferior and basal inferolateral segments are hypokinetic. - There is mild mitral valve regurgitation. Findings Left Ventricle Mildly increased left ventricular cavity size. There is normal left ventricular wall thickness. The left ventricular systolic function is normal. The calculated ejection fraction is 58% by biplane method. Evidence suggests grade I (mild) diastolic dysfunction. Wall Motion Rest Echo Findings The basal inferior and basal inferolateral segments are hypokinetic. Right Ventricle Normal right ventricular cavity size and systolic function. Atria The left atrium is mildly dilated. The right atrium is normal in size. Aortic Valve There is mild calcification of the aortic valve. There is no aortic valve stenosis. There is no aortic valve regurgitation. Mitral Valve The mitral valve appears normal. The posterior mitral leaflet has restricted mobility. There is mild mitral valve regurgitation. There is no mitral valve stenosis. Pulmonic Valve The pulmonic valve is likely normal. There is trace pulmonic valve regurgitation. Tricuspid Valve There is no tricuspid valve regurgitation. Tricuspid regurgitation envelope is inadequate for calculation of right ventricular systolic pressure. Great Vessels The asc aorta is normal in size. Small plaque is seen in the sino tubular ridge. Venous The inferior vena cava is normal in size and collapses greater than 50% with inspiration. Pericardium/Pleural There is a trivial pericardial effusion. Prior Study Comparison No prior study available for comparison. Measurements 2D Linear Measurements IVSd: 0.93 0.6-0.9/0.6-1.0 cm LVIDd: 5.86 3.9-5.3/4.2-5.9 cm LVIDd Index: 3.07 2.4-3.2/2.2-3.1 cm/m2 LVIDs: 3.77 2.0-3.6 cm LVPWd: 1.22 0.7-1.1 cm LA Diam: 4.00 2.7-3.8/3.0-4.0 cm LAIDs Index: 2.09 1.5-2.3 cm/m2 LV Mass: 325.20 67-162/88-224 g LV Mass Index: 170.26 43-95/49-115 g/m2 LVOT Diam: 2.20 3.0+(-)1.3 cm 2D Systolic Function EF 4C: 59.00 >55% EF 2C: 59.50 >55% EF BiP: 58.30 >55% Mitral Valve MV Pk E: 0.70 MV PK A: 0.89 MV Decel Time: 267.00 E/A: 0.80 E'Lateral: 5.77 E'Medial: 4.19 E/E' Med: 16.80 E/E' Lat: 12.20 PHT: 78.00 MVA PHT: 2.82 Decel Dickens: 2.63 Aortic Valve AoV Pk Magdy: 1.87 AoV Mn Magdy: 1.29 AoV VTI: 0.56 AoV Pk Grad: 14.00 Aov Mn Grad: 8.00 CORIN Cont.VTI: 1.99 LVOT LVOT Pk Magdy: 1.12 LVOT Mn Magdy: 0.74 LVOT VTI: 0.29 LVOT Pk Grad: 5.00 LVOT Mn Grad: 3.00 LVOT Diam: 2.20 LVOT Area: 3.80 Diastolic Function MV Pk E: 0.70 MV Pk A: 0.89 E/A: 0.80 E'Medial: 4.19 E/E' Med: 16.80 E' Laterial: 5.77 E/E' Lat: 12.20 Right Ventricle TAPSE (mm): 20.90 TVS' Magdy: 10.60 Tricuspid Valve RA Press: 3.00 Great Vessels Aorta Sinus of Valsalva: 2.58 2.0-3.[address] Ridge: 2.01 1.7-3.4 cm Ao Asc: 3.00 2.1-3.4 cm Updated in Other Vendor System with Status of Final Oumar Mcdowell MD electronically signed on 02/08/2024 10:46:08 AM with status of Final
== END ==
LOC: HO.CARD 11:13
PROVIDERS: Visit Provider Internal Medicine Nephrology
DX: R06.00 Dyspnea, unspecified (principal); I25.10 Atherosclerotic heart disease of native coronary artery without angina pectoris; I25.2 Old myocardial infarction
CPT/HCPCS: 93306

== ENCOUNTER → 2024-02-06 11:23 | Outpatient (BNV) | payer MEDICARE, MEDICAID, SELFPAY | PROVIDERS: Visit Provider Internal Medicine | DX: I34.0 Nonrheumatic mitral (valve) insufficiency (principal); I35.8 Other nonrheumatic aortic valve disorders; I51.89 Other ill-defined heart diseases | CPT/HCPCS: 93306 ==

== ENCOUNTER 2024-02-22 09:46 | Outpatient (REF) | payer MEDICARE, MEDICAID, SELFPAY ==
[2024-02-22 10:01] LABS: MANUAL DIFF FLAG NO
[2024-02-22 10:36] LABS: Basophils Percent Auto 0.5 % (0-2); Eosinophils Absolute Auto 0.1 X10*3/uL (0.0-0.4); Eosinophils Percent Auto 1.1 % (0-4); Hematocrit 24.5 % (37.0-47.0); Imm Gran Abs Auto 0.05 X10*3/uL (0.00-0.03); Imm Gran Pct Auto 0.6 % (0.0-0.4); Lymphocytes Absolute Auto 1.7 X10*3/uL (1.2-4.9); Lymphocytes Percent Auto 20.5 % (20-40); Mean Corpuscular HGB Conc 27.3 g/dl (31.0-35.0); Mean Corpuscular Hemoglobin 23.2 pg (27.0-33.0); Mean Corpuscular Volume 84.8 fL (80.0-98.0); Mean Platelet Volume 9.9 fL (9.4-12.3); Monocytes Absolute Auto 0.8 X10*3/uL (0.1-1.2); Monocytes Percent Auto 8.9 % (2-11); NRBC Pct Auto 0.2 /100WBC (0.0-0.2); Neutrophils Absolute Auto 5.7 x10*3/uL (2.0-8.3); Neutrophils Percent Auto 68.4 % (45-73); Platelet Count 396 X10*3/uL (160-400); Red Blood Count 2.89 X10*6/uL (4.20-5.50); Red Cell Distribution Width 22.3 % (11.0-16.0); White Blood Count 8.4 X10*3/uL (4.8-10.8)
[2024-02-22 10:44] LABS: Hemoglobin 6.7 g/dl (12.0-16.0)
[2024-02-22 11:26] LABS: Anion Gap 12 (12-20); Blood Urea Nitrogen 52 mg/dL (9-16); Carbon Dioxide 23 mmol/L (22-29); Chloride 113 mmol/L (96-108); Estimated Glomerular Filt Rate 19; Potassium 5.5 mmol/L (3.3-5.1); Sodium 142 mmol/L (135-145)
== END 2024-02-22 09:47 | disposition home or self-care (01) ==
LOC: HO.LAB 09:46
PROVIDERS: Visit Provider Internal Medicine Nephrology
DX: N18.32 Chronic kidney disease, stage 3b (principal); D63.1 Anemia in chronic kidney disease; I10 Essential (primary) hypertension
CPT/HCPCS: 36415; 80051; 82565; 84520; 85025

== ENCOUNTER 2024-02-27 09:30 | Outpatient (AMB) | payer MEDICARE, MEDICAID, SELFPAY ==
--- NOTE | 2024-02-27 09:32 | A.OFFVIS_ITS ---
Vital Signs 02/27/24 09:33 Height 5 ft 8 in Weight 167 lb 8.821 oz BMI 25.5 BP 226/91 H Blood Pressure Location Lt brachial Position Sitting Intake Visit Reasons: GI Hemorrhage Intake Note: Yecenia presents in the office as a new patient for GI hemorrhage. CC: She is not having any symptoms - she has beeen doing research because she found out that aspirin is not good for elderly people and she said anemia runs in her family. Vocational Adviser Required: No Allergies amoxicillin Allergy (Unknown, Verified 02/27/24 09:44) Unknown hydrochlorothiazide Allergy (Unknown, Verified 02/27/24:44) Unknown Chase inhibitors Allergy (Unknown, Uncoded 02/27/24:44) Unknown latex Allergy (Unknown, Uncoded 02/27/24:) rash HPI Comments Details: This is a 74-year-old female with past medical history of coronary artery disease s/p NEETU 2018, history of thyrotoxicosis 2018, history of PE and DVT unprovoked, on Eliquis, CKD stage 4, who was referred to us on an urgent basis for acute on chronic anemia and unintentional weight loss. History was obtained from the patient, who states that she was sent to ER by her [facility] Tender in Dec 2023 for severe anemia. Admission and GI work up was recommended. 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 Pt reports fatigue, loss of appetite and weight loss of almost 25 lbs since the last 4 months. Has had low H/H since last year but dropped below tranfusion threshold 12/2023. From review of labs, improved to 8.3, but has dropped again to 6.7. Nephrology is working on outpatient blood transfusion. She has never had a colonoscopy. Reports having Cologuard done 3-4 years ago, which was positive. However, she was not able to proceed with a colonoscopy due to transport barriers. She was again recommended to have age-appropriate colorectal cancer screening done when she was seen by [facility] heme[facility]c in 2021 for management of anticoagulation for unprovoked DVTs, but again did not pursue colonoscopy at that time. Laboratory Tests 09/19/23 12/28/23 01/25/24 09:20 08:02 10:11 Hgb 8.1 L 6.2 L* D 8.3 L D Hct 29.5 L 23.1 L 30.0 L D Sodium Potassium Chloride BUN Creatinine 02/22/24 10:00 Hgb Hct 24.5 L Sodium 142 Potassium 5.5 H Chloride 113 H BUN 52 H Creatinine 2.45 H PFSH Medical History Chronic kidney disease Anemia in chronic kidney disease Surgical History History of partial hysterectomy Social History Alcohol intake: never Patient Tobacco Use Status: Never used Tobacco Review of Systems Const All systems reviewed & are unremarkable except as noted in HPI and below Physical Exam Vital Signs: Last Vital Signs BP 226/91 H 02/27/24 09:33 BMI result Body Mass Index 25.5 Elderly female Pale appearing Abdomen soft, nondistended Assessment & Plan Assessment & Plan (1) Iron deficiency: Code(s): E61.1 - Iron deficiency Category: Medical (2) Anemia in chronic kidney disease: Code(s): N18.9 - Chronic kidney disease, unspecified; D63.1 - Anemia in chronic kidney disease Category: Medical Qualifiers: Chronic kidney disease stage: stage 3 (moderate) Chronic kidney disease stage 3 subtype: stage 3b (GFR 30-44) Qualified Code(s): N18.32 - Chronic kidney disease, stage 3b; D63.1 - Anemia in chronic kidney disease (3) GIB (gastrointestinal bleeding): Code(s): K92.2 - Gastrointestinal hemorrhage, unspecified Category: Medical (4) Unintentional weight loss: Code(s): R63.4 - Abnormal weight loss Category: Medical Plan Reviewed with the pt that constellation of sx + positive cologuard 3-4 years ago is concerning for a malignancy. Other ddx include PUD, AVMs, Dieulafoy etc. Will need urgent bidirectional endoscopy - main barrier is transport as pt reports she does not have a friend/neighbor/fam member to help her the day of the procedure. Reassured her that will work on this on our end. Plan: - Labs ordered - pt again reminded to get these done today so she can be set up for transfusion through her [employer] Tender - Urgent EGD/colo to be booked. PEG prep Rxed, educated that ok from renal standpoint - Eliquis to be held x 4 days prior, based on renal function - Will need CBC done 2 days before procedures to ensure Hb >7. Follow up after procedures Orders: Orders Ferritin Today D63.1 - Anemia in chronic kidney disease, E61.1 - Iron deficiency, N18.32 - Chronic kidney disease, stage 3b IRON PROFILE Today D63.1 - Anemia in chronic kidney disease, E61.1 - Iron deficiency, N18.32 - Chronic kidney disease, stage 3b Vitamin B12 and Folate Today D63.1 - Anemia in chronic kidney disease, E61.1 - Iron deficiency, N18.32 - Chronic kidney disease, stage 3b Hemoglobin A1c Today R73.9 - Hyperglycemia, unspecified Complete Blood Count no Diff Today D63.1 - Anemia in chronic kidney disease, E61.1 - Iron deficiency, N18.32 - Chronic kidney disease, stage 3b Medications: New peg 3350-electrolytes 236-22.74-6.74 -5.86 gram (Golytely) as per split prep instructions, until fecal effluent is clear 240 mL PO Q10M 4,000 mL 0RF colonoscopy Discontinued sodium polystyrene sulfonate Discontinued Reason: Patient no longer taking 30 grams PO .q weekly 90 days 453.6 grams 3RF furosemide (Lasix) Discontinued Reason: Patient no longer taking 40 mg PO DAILY 10 tabs 0RF Coding Level of Care Code New Pt Level 4 (33596) Complex EM visit Add On G2211 Diagnoses Iron deficiency E61.1 Anemia in stage 3b chronic kidney disease N18.32; D63.1 Chronic kidney disease stage: stage 3 (moderate) Chronic kidney disease stage 3 subtype: stage 3b (GFR 30-44) GIB (gastrointestinal bleeding) K92.2 Unintentional weight loss R63.4
[2024-02-27 09:33] VITALS: BP 226/91; BMI 25.5
== END 2024-02-27 10:53 | disposition home or self-care (01) ==
PROVIDERS: Visit Provider Internal Medicine
DX: E61.1 Iron deficiency (principal); N18.32 Chronic kidney disease, stage 3b; D63.1 Anemia in chronic kidney disease; K92.2 Gastrointestinal hemorrhage, unspecified; R63.4 Abnormal weight loss
CPT/HCPCS: 99204; G2211

== ENCOUNTER → 2024-02-27 09:30 | Outpatient (BNVA) | payer MEDICARE, MEDICAID, SELFPAY | PROVIDERS: Visit Provider Internal Medicine | DX: N18.32 Chronic kidney disease, stage 3b (principal); D63.1 Anemia in chronic kidney disease; E61.1 Iron deficiency; R63.4 Abnormal weight loss; K92.2 Gastrointestinal hemorrhage, unspecified | CPT/HCPCS: 99202 ==

== ENCOUNTER 2024-02-29 10:17 | Outpatient (REF) | payer MEDICARE, MEDICAID, SELFPAY ==
[2024-02-29 11:07] LABS: Hematocrit 22.5 % (37.0-47.0); Mean Corpuscular HGB Conc 27.1 g/dl (31.0-35.0); Mean Corpuscular Hemoglobin 22.8 pg (27.0-33.0); Mean Platelet Volume 10.3 fL (9.4-12.3); NRBC Pct Auto 0.3 /100WBC (0.0-0.2); Platelet Count 405 X10*3/uL (160-400); Red Blood Count 2.68 X10*6/uL (4.20-5.50); Red Cell Distribution Width 21.3 % (11.0-16.0); White Blood Count 7.3 X10*3/uL (4.8-10.8)
[2024-02-29 11:25] LABS: Hemoglobin 6.1 g/dl (12.0-16.0)
[2024-02-29 11:38] LABS: Estimated Average Glucose 131 mg/dL; Hemoglobin A1C 68.4666 umol/L; Hemoglobin A1c % 6.2 % (<6.0); Total Hemoglobin (HGBA1C) 1536.9702 umol/L
[2024-02-29 11:43] LABS: Iron 9 mcg/dL (30-160); Percent Iron Saturation 4 % (15-50); Total Iron Binding Capacity 219 mcg/dL (228-428); Unsaturated Iron Binding 210 ug/dL
[2024-02-29 12:01] LABS: Ferritin 378 ng/mL (10-250)
[2024-02-29 12:06] LABS: Folate 19.3 ng/mL (> or = 4.0); Vitamin B12 1237 pg/mL (200-900)
== END 2024-02-29 10:18 | disposition home or self-care (01) ==
LOC: HO.LAB 10:17
PROVIDERS: Visit Provider Internal Medicine
CPT/HCPCS: 36415; 82607; 82728; 82746; 83036; 83540; 85027; 96372; 99212; Q5106

== ENCOUNTER 2024-02-29 11:44 | Outpatient (AMB) | payer MEDICARE, MEDICAID, SELFPAY ==
--- NOTE | 2024-02-29 11:58 | HO.NEPHOV ---
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 She had been pale with dropping Hb, edema and dropping iron saturations even after some iron transfusions. She recently had cologuard positivity but has not had any colonoscopies. She has seen GI and has an upcoming colonoscopy. She denies chest pain or syncope but had intermittent palpitations & dizziness. She has H/O PRBC transfusion. Recently she was given 2 Units of PRBC. Her Hb is continuing to drop and is due to have more PRBC. She has H/O MO. She had an ECHO . She avoids nonsteroidal anti-inflammatory medications. She maintains good hydration. He is compliant with her current medication regimen. She has seen Dr. Dawson for her coronary artery disease. She does not have any nausea, vomiting or diarrhea. She is overwhelmed due to personal health issues, moms care etc. [facility] Medical History Chronic kidney disease Anemia in chronic kidney disease Surgical History History of partial hysterectomy Social History Alcohol intake: never Patient Tobacco Use Status: Never used Tobacco Review of Systems Const All systems reviewed & are unremarkable except as noted in HPI and below Physical Exam Vital Signs: Last Vital Signs Pulse 75 02/29/24 11:59 BP 158/60 H 02/29/24 11:59 Pulse Ox 98 02/29/24 11:59 Oxygen Delivery Method Room Air 02/29/24 11:59 BMI result Body Mass Index 25.5 Const General: comfortable and no acute distress Orientation/consciousness: patient oriented x3 HEENT Head: Yes normocephalic Mouth: Normal oral and palatal mucosa present Eyes EOM: EOMs intact bilaterally Neck Neck: Yes supple Resp Auscultation: clear to auscultation bilaterally Cardio Jugular venous distension: no JVD Rate: regular rate GI Palpation (GI): Soft to palpation Auscultation: normal bowel sounds Skin General skin exam: no rashes or lesions noted Neuro General: patient oriented x3 and moves all extremities Office Meds epoetin walt-epbx 10,000 unit/mL injection solution Performing Provider: London Boyer MD Performing Location: [facility] [place] [facility] Administered by: London Boyer MD on 02/29/24 14:54 Dose Route Admin Location Dispensed Lot Number Expiration Date [facility] Expansion [employer] 40,000 unit subcut LUE 4 mL [id number] 06/19/25 7794-6373-53 [employer] PHARM Results Reviewed Nephrology Results: Hgb 6.1 g/dl (12.0-16.0) L* 02/29/24 WBC 7.3 X10*3/uL (4.8-10.8) 02/29/24 Plt Count 405 X10*3/uL (160-400) H 02/29/24 Sodium 142 mmol/L (135-145) 02/22/24 Potassium 5.5 mmol/L (3.3-5.1) H 02/22/24 Chloride 113 mmol/L (96-108) H 02/22/24 Carbon Dioxide 23 mmol/L (22-29) 02/22/24 BUN 52 mg/dL (9-16) H 02/22/24 Creatinine 2.45 mg/dL (0.5-1.4) H 02/22/24 Calcium 9.8 mg/dL (8.4-10.2) 01/01/24 Urine Protein 300 (3+) mg/dL (Neg-Trace) H 01/01/24 Assessment & Plan Assessment & Plan (1) Anemia in chronic kidney disease: Code(s): N18.9 - Chronic kidney disease, unspecified; D63.1 - Anemia in chronic kidney disease Category: Medical Qualifiers: Chronic kidney disease stage: stage 3 (moderate) Chronic kidney disease stage 3 subtype: stage 3b (GFR 30-44) Qualified Code(s): N18.32 - Chronic kidney disease, stage 3b; D63.1 - Anemia in chronic kidney disease (2) CKD (chronic kidney disease) stage 3, GFR 30-59 ml/min: Code(s): N18.30 - Chronic kidney disease, stage 3 unspecified Category: Medical Qualifiers: Chronic kidney disease stage 3 subtype: stage 3a (GFR 45-59) Qualified Code(s): N18.31 - Chronic kidney disease, stage 3a (3) Hypertension: Code(s): I10 - Essential (primary) hypertension Category: Medical Qualifiers: Hypertension type: primary hypertension Qualified Code(s): I10 - Essential (primary) hypertension (4) Hyperkalemia: Code(s): E87.5 - Hyperkalemia Category: Medical Plan Yecenia has chronic kidney disease and longstanding hypertension. 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 She is known to have coronary artery disease and has undergone angioplasty and stenting. She has not had upper or lower endoscopy even though she had cologuard positivity. She has seen GI and is due to have colonoscopy. I have arranged 2 units of PRBC. She may need Hematology consult +/- bone marrow biopsy. She needs to maintain low-sodium & K diet. She was given [id number] Unit of Procrit today. Her renal functions are fairly stable. Follow up blood work ordered Orders: Orders Complete Blood Count Auto Diff 3 Weeks D63.1 - Anemia in chronic kidney disease, N18.31 - Chronic kidney disease, stage 3a, N18.32 - Chronic kidney disease, stage 3b AMB Epoetin Injection Practice Supplied Today D63.1 - Anemia in chronic kidney disease, N18.32 - Chronic kidney disease, stage 3b Creatinine 3 Weeks D63.1 - Anemia in chronic kidney disease, N18.31 - Chronic kidney disease, stage 3a, N18.32 - Chronic kidney disease, stage 3b Blood Urea Nitrogen 3 Weeks D63.1 - Anemia in chronic kidney disease, N18.31 - Chronic kidney disease, stage 3a, N18.32 - Chronic kidney disease, stage 3b Electrolytes 3 Weeks D63.1 - Anemia in chronic kidney disease, N18.31 - Chronic kidney disease, stage 3a, N18.32 - Chronic kidney disease, stage 3b Coding Level of Care Code Est Pt Level 4 (91220) Diagnoses Anemia in stage 3b chronic kidney disease N18.32; D63.1 Chronic kidney disease stage: stage 3 (moderate) Chronic kidney disease stage 3 subtype: stage 3b (GFR 30-44) Stage 3a chronic kidney disease N18.31 Chronic kidney disease stage 3 subtype: stage 3a (GFR 45-59) Primary hypertension I10 Hypertension type: primary hypertension Hyperkalemia E87.5
[2024-02-29 11:59] VITALS: BP 158/60; PULSE 75; O2SAT 98; BMI 25.5
== END 2024-02-29 12:40 | disposition home or self-care (01) ==
PROVIDERS: Visit Provider Internal Medicine Nephrology
DX: I12.9 Hypertensive chronic kidney disease with stage 1 through stage 4 chronic kidney disease, or unspecified chronic kidney disease (principal); N18.32 Chronic kidney disease, stage 3b; D63.1 Anemia in chronic kidney disease; E87.5 Hyperkalemia
CPT/HCPCS: 99214

== ENCOUNTER 2024-03-03 07:10 | Outpatient (REF) | payer MEDICARE, MEDICAID, SELFPAY ==
[2024-03-03 07:38] LABS: MANUAL DIFF FLAG NO
[2024-03-03 08:18] LABS: Basophils Percent Auto 0.4 % (0-2); Eosinophils Absolute Auto 0.1 X10*3/uL (0.0-0.4); Eosinophils Percent Auto 0.5 % (0-4); Imm Gran Abs Auto 0.15 X10*3/uL (0.00-0.03); Imm Gran Pct Auto 1.5 % (0.0-0.4); Lymphocytes Absolute Auto 2.5 X10*3/uL (1.2-4.9); Lymphocytes Percent Auto 24.9 % (20-40); Mean Corpuscular HGB Conc 27.5 g/dl (31.0-35.0); Mean Corpuscular Hemoglobin 23.1 pg (27.0-33.0); Mean Corpuscular Volume 84.3 fL (80.0-98.0); Monocytes Absolute Auto 0.6 X10*3/uL (0.1-1.2); Monocytes Percent Auto 6.3 % (2-11); Neutrophils Absolute Auto 6.8 x10*3/uL (2.0-8.3); Neutrophils Percent Auto 66.4 % (45-73); Platelet Count 398 X10*3/uL (160-400); Red Blood Count 2.29 X10*6/uL (4.20-5.50); Red Cell Distribution Width 21.2 % (11.0-16.0); White Blood Count 10.2 X10*3/uL (4.8-10.8)
[2024-03-03 08:26] LABS: NRBC Pct Auto 3.2 /100WBC (0.0-0.2)
[2024-03-03 08:32] LABS: Hemoglobin 5.3 g/dl (12.0-16.0)
[2024-03-03 08:33] LABS: Anion Gap 13 (12-20); Blood Urea Nitrogen 54 mg/dL (9-16); Carbon Dioxide 22 mmol/L (22-29); Chloride 113 mmol/L (96-108); Estimated Glomerular Filt Rate 21; Hematocrit 19.3 % (37.0-47.0); Potassium 4.5 mmol/L (3.3-5.1); Sodium 143 mmol/L (135-145)
== END 2024-03-03 07:11 | disposition home or self-care (01) ==
LOC: HO.LAB 07:10
PROVIDERS: Visit Provider Internal Medicine Nephrology
DX: I12.9 Hypertensive chronic kidney disease with stage 1 through stage 4 chronic kidney disease, or unspecified chronic kidney disease (principal); D63.1 Anemia in chronic kidney disease; N18.32 Chronic kidney disease, stage 3b; N18.31 Chronic kidney disease, stage 3a
CPT/HCPCS: 36415; 80051; 82565; 84520; 85025

== ENCOUNTER 2024-04-02 09:51 | Outpatient (REF) | payer MEDICARE, MEDICAID, SELFPAY ==
[2024-04-02 11:14] LABS: Alanine Aminotransferase 6 U/L (0-31); Aspartate Amino Transferase 13 U/L (5-31)
--- OUTSIDE RECORDS SUMMARY | 2024-04-02 11:31 | XMS_ITS | Encounter Summary ---
Author Organization [facility] [employer] Address [address] [place] [address] 7 [place] [address] Care Team Providers Care Color Receiver Name Role Phone Unavailable Primary Care Provider Unavailabl e Encounter Details Date Type Department Care Team (Latest Contact Info) Description 12/22/2019 Abstract [facility] CONVERSIONS Dental, Provider, DDS Social History Tobacco Use Types Packs/Day Years Used Date Smoking Tobacco: Never Assessed Comments Unknown Sex and Gender Information Value Date Recorded Sex Assigned at Female 03/14/2022 9:22 AM EST Legal Sex Female 5:36 PM EDT Gender Identity Female 03/14/2022 9:22 AM EST Sexual Orientation Choose not to disclose 2022 9:22 AM EST documented as of this encounter Plan of Treatment Not on file documented as of this encounter Visit Diagnoses Not on filedocumented in this encounter
--- OUTSIDE RECORDS SUMMARY | 2024-04-02 11:31 | XMS_ITS | Clinical Summary ---
Author Organization [facility] Address [address] [place] [address] Phone Care Team Providers Care [place] Or City Auditor Name Role Phone Marychuy Ríos MD Primary Care Provider [phone] Allergies Active Allergy Reactions Criticality Noted Date Comments Codeine Other (see comments) 04/08/2020 Furosemide Itching,Other (see comments) 021 Hydralazine Other (see comments) 01/21/2021 Morphine Other (see comments) 04/07/2020 Nsaids Other (see comments) 07/27/2020 Oxycodone-Aspirin Other (see comments) 04/07/19 21 Prednisone Other (see comments) 01/21/2021 Statins Other (see comments) 07/27/2020 Yeast 04/07/2020 Medications aspirin (ST GABBY) 81 MG EC tablet Take 1 tablet by mouth 1 (one) time each day Active cholecalciferol (VITAMIN D-3) 25 MCG (1000 UT) capsule Take 1 capsule by mouth 1 (one) time each day Active Magnesium Oxide 200 MG tablet Active apixaban (ELIQUIS) 2.5 MG tablet See administration instructions Active amLODIPine (NORVASC) 5 MG tablet Take 1 tablet by mouth 1 (one) time each day Active spironolactone (ALDACTONE) 25 MG tablet Take 1 tablet (25 mg total) by mouth 1 (one) time each day 90 tablet 3 11/17/19 22 Active metoprolol tartrate (LOPRESSOR) 50 MG tablet Take 1.5 tablets (75 mg total) by mouth in the morning and 1.5 tablets (75 mg total) in the evening. 270 tablet 5 01/26/20 22 Active isosorbide mononitrate (IMDUR) 30 MG 24 hr tablet Take 1 tablet (30 mg total) by mouth in the morning and 1 tablet (30 mg total) in the evening and 1 tablet (30 mg total) before bedtime. 270 tablet 3 01/26/20 22 Active chlorthalidone 25 MG tablet Take 1 tablet (25 mg total) by mouth 1 (one) time each day 30 tablet 3 07/20/19 23 Active cloNIDine (CATAPRES) 0.1 MG tablet Take 1 tablet (0.1 mg total) by mouth in the morning and 1 tablet (0.1 mg total) in the evening and 1 tablet (0.1 mg total) before bedtime. 270 tablet 3 01/13/20 23 Active cloNIDine (CATAPRES) 0.1 MG tablet Take 1 tablet (0.1 mg total) by mouth in the morning and 1 tablet (0.1 mg total) in the evening and 1 tablet (0.1 mg total) before bedtime. 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 05/31/2022 Hyperlipidemia 11/15/2021 Hypertension 11/03/2020 Gout due to renal impairment, right ankle and fo ot 11/03/2020 Iron deficiency anemia, not otherwise specified 11/03/2020 Anemia of chronic disease 11/03/2020 Secondary hyperparathyroidism of renal origin Essential hypertension 06/02/2020 Acute nontraumatic kidney injury 04/07/2020 Benign hypertensive renal disease 04/07/2020 Stage 3b chronic kidney disease 04/07/2020 Resolved Problems Problem Noted Date Diagnosed Date Resolved Date Gout 04/27/2021 04/27/2021 Obesity 04/27/2021 04/27/2021 Thyrotoxicosis 04/27/2021 04/27/2021 Osteoarthritis 11/03/2020 04/27/2021 Pain in left foot 11/03/2020 04/27/2021 Seasonal allergic rhinitis 08/04/2020 0 04/27/2021 Family History Medical History Relation Comments Hypertension Father Relation Status Comments Father Mother Alive Social History Tobacco Use Types Packs/Day Years Used Date Smoking Tobacco: Former Smokeless Tobacco: Never Tobacco Cessation:Counseling Given: Not Answered Alcohol Use Standard Drinks/Week Comments No 0 (1 standard drink = 0.6 oz pur e alcohol) Comments Unknown Sex and Gender Information Value Date Recorded Sex Assigned at Female 12/27/2020 6:43 AM EST Legal Sex Female 5:00 PM EST Gender Identity Female 12/27/2020 6:43 AM EST Sexual Orientation Straight 12/27/2020 6: 43 AM EST Last Filed Vital Signs Vital Sign Reading Time Taken Comments Blood Pressure 140/82 11/08/2022 2:43 PM EDT Pulse 51 11/08/2022 2:43 PM EDT Temperature - - Respiratory Rate 20 08/29/2022 2:00 PM EDT Oxygen Saturation 98% 08/29/2022 2:00 PM EDT Inhaled Oxygen Concentration - - Weight 85.1 kg (187 lb 9.6 oz) 11/08/2022 2:43 P M EDT Height 172.7 cm (5' 8 ) 03/10/2020 12:00 PM EST Body Mass Index 28.52 03/10/2020 12:00 PM EST Plan of Treatment Health Maintenance Due Date Last Done Comments Breast Cancer Screening 1950 Pneumococcal Vaccine: 65+ Years (1 of 2 - PCV) 957 Colorectal Cancer Screening: Annual FOBT 01/02/2000 Colorectal Cancer Screening: Colonoscopy 01/02/2000 Colorectal Cancer Screening: Sigmoidoscopy 01/02/2000 Influenza Vaccine (#1) 2023 Insurance [place] Care Teams [place] Auditor Relationship Specialty Start Date End Date Marychuy Ríos MD [address] [place] [id number] PCP - General Internal Medicine 11/03/20
--- OUTSIDE RECORDS SUMMARY | 2024-04-02 11:31 | XMS_ITS | Clinical Summary ---
Author Organization [employer] [facility] Address [address] [place] [address] Care Team Providers Care Sports Editor Name Role Phone Unavailable Primary Care Provider Unavailabl e Allergies Active Allergy Reactions Criticality Noted Date Comments Morphine And Codeine 04/03/2022 Medications amLODIPine (Norvasc) 5 MG tablet Take 1 tablet by mouth. 07/20/2020 Active amLODIPine (Norvasc) 5 MG tablet Take 5 mg by mouth in the morning. 04/03/2022 Active Eliquis 2.5 MG tablet Take 2.5 mg by mouth 2 times daily. 08/23/2022 Active Aspirin Low Dose 81 MG EC tablet Take 81 mg by mouth in the morning. 08/17/2022 Active chlorthalidone (Hygroton) 25 MG tablet Take 25 mg by mouth. 07/19/2022 Active chlorthalidone (Hygroton) 25 MG tablet TAKE 1 TABLET BY MOUTH 1 TIME EACH DAY. 07/19/2022 Active cloNIDine (Catapres) 0.1 MG tablet Take 0.1 mg by mouth 3 times daily. 05/20/2022 Active ferrous sulfate 8.8 mg/mL elemental iron elixir Take 5 mL by mouth in the morning. 12/07/2021 Active metoprolol tartrate (Lopressor) 50 MG tablet TAKE 1.5 TABLETS (75 MG TOTAL) BY MOUTH IN THE MORNING AND 1.5 TABLETS (75 MG TOTAL) IN THE EVENING 07/31/2022 Active magnesium oxide 200 MG tablet Active Social History Tobacco Use Types Packs/Day Years Used Date Smoking Tobacco: Never Passive Smoke Exposure: Never Smokeless Tobacco: Never Tobacco Cessation:Counseling Given: Not Answered Alcohol Use Standard Drinks/Week Comments Yes 0 (1 standard drink = 0.6 oz pur e alcohol) Comments Unknown Sex and Gender Information Value Date Recorded Sex Assigned at Female 03/14/2022 9:22 AM EST Legal Sex Female 5:36 PM EDT Gender Identity Female 03/14/2022 9:22 AM EST Sexual Orientation Choose not to disclose 2022 9:22 AM EST Last Filed Vital Signs Vital Sign Reading Time Taken Comments Blood Pressure 195/84 10/17/2022 9:08 AM EDT Pulse - - Temperature - - Respiratory Rate - - Oxygen Saturation - - Inhaled Oxygen Concentration - - Weight - - Height - - Body Mass Index - - Plan of Treatment Health Maintenance Due Date Last Done Comments CT Colonography 1950 Colonoscopy 1950 Colorectal Cancer Screening 1950 Depression Screening 1950 FIT DNA/Cologuard 1951 FIT 1951 FOBT 1950 Lipid Panel 1951 SDOH Screening 1951 Sigmoidoscopy 1951 Alcohol/Substance Use Screening 1963 Hepatitis C Screening 1969 DTaP/Tdap/Td Vaccines (1 - Tdap) 1970 Mammogram 1991 Pneumococcal Vaccine: 50+ Years (1 of 1 - PCV) 2001 Zoster Vaccines (1 of 2) 2001 Dental Oral Exam 08/11/2021 02/09/2021, 12/22/2019 Dental X-Ray: Bitewings 02/10/2022 02/10/20 21, 04/21/2019, 02/18/2019 Dental X-Ray: Full Mouth 04/21/2022 04/21/2019 Dental Prophylaxis 02/16/2023 08/16/2022, 1 04/12/2020, 12/22/2019 Tobacco Screening 10/18/2023 10/17/2022 COVID-19 Vaccine ( season) 2023 03/22/2022, 02/24/2021, 06/02/2020, Additional history exists Influenza Vaccine (#1) 2023 RSV Patients and Patients Aged 60 years or older (1 - 1-dose 75+ series) 2026 HIB Vaccines Aged Out No longer eligi ble based on patient's age to complete this topic HPV Vaccines Aged Out No longer eligi ble based on patient's age to complete this topic Hepatitis A Vaccines Aged Out No long er eligible based on patient's age to complete this topic Hepatitis B Vaccines Aged Out No long er eligible based on patient's age to complete this topic IPV Vaccines Aged Out No longer eligi ble based on patient's age to complete this topic Meningococcal Vaccine Aged Out No leslie noel eligible based on patient's age to complete this topic RSV under 20 months Aged Out No longe r eligible based on patient's age to complete this topic Rotavirus Vaccines Aged Out No longer eligible based on patient's age to complete this topic Procedures Procedure Name Priority Date/Time Associated Diagnosis Comments Full PROPHYLAXIS - ADULT Routine 023 10:10 AM EDT BITEWINGS - 4 RADIOGRAPHIC IMAGES Routine 02/09/2021 12:00 AM EST PERIODIC ORAL EVALUATION - ESTABLISHED PATIENT Routine 02/09/2021 12:00 AM EST DIAGNOSTIC - DIAGNOSTIC IMAGING - INTRAORAL - COMPREHENSIVE SERIES OF RADIOGRAPHIC IMAGES Routine 04/21/2019 12:00 AM EST from Last 3 Months or Most Recently Relevant to Health Maintenance Insurance [facility] MEDICAID STAND ADULT
--- OUTSIDE RECORDS SUMMARY | 2024-04-02 11:31 | XMS_ITS | Encounter Summary ---
Author Organization [facility] Address [address] [place] [address] Phone Care Team Providers Care Tube Maker Name Role Phone Marychuy Ríos MD Primary Care Provider [phone] Encounter Details Date Type Department Care Team (Late st Contact Info) Description 09/01/2020 Orders Only [facility] [address] [place] [address] London Boyer MD Stage 3b chronic kidney disease (HCC); Essential hypertension Social History Tobacco Use Types Packs/Day Years Used Date Smoking Tobacco: Former Smokeless Tobacco: Current Alcohol Use Standard Drinks/Week Comments No 0 (1 standard drink = 0.6 oz pur e alcohol) Comments Unknown Sex and Gender Information Value Date Recorded Sex Assigned at Female 12/27/2020 6:43 AM EST Legal Sex Female 5:00 PM EST Gender Identity Female 12/27/2020 6:43 AM EST Sexual Orientation Straight 12/27/2020 6: 43 AM EST documented as of this encounter Plan of Treatment Not on file documented as of this encounter Procedures Procedure Name Priority Date/Time Associated Diagnosis Comments CBC Routine 08/03/2020 7:46 AM EDT Stage 3b chronic kidney disease (HCC) Essential hypertension RENAL FUNCTION PANEL Routine 08/03/2020 7:46 AM EDT Stage 3b chronic kidney disease (HCC) Essential hypertension documented in this encounter Results * (ABNORMAL) Renal function panel (08/03/2020 7:46 AM EDT) Glucose 113(H) (70-99) MG/DL [facility] BUN 42(H) (8-23) MG/DL [facility] Creatinine 2.0(H) (0.5-1.0) MG/DL [facility] Sodium 141 (133-145) MMOL/L [facility] Potassium 5.1 (3.6-5.2) MMOL/L [facility] Chloride 106 (98-107) MMOL/L [facility] Bicarbonate (CO2) 23 (22-29) MMOL/L [facility] Anion Gap 12 (4-17) [facility] Albumin 4.2 (3.4-4.8) GM/DL [facility] Calcium 9.5 (8.6-10.5) MG/DL [facility] Phosphorus, Serum 3.8 (2.5-4.5) MG/DL [facility] Est GFR Non 25 ML/MIN/1.7 3 M2 [facility] Comment: Creatinine based estimated glomerular filtration rate (eGFR) is calculated using the Chronic Kidney Disease Epidemiology Collaboration (CKD-EPI). The CKD-EPI creatinine equation has not been validated in children (<18 years), women or in some racial or ethnic subgroups other than Caucasians and Americans. EST GFR 29 ML/MIN/1.7 3 M2 [facility] Comment: Creatinine based estimated glomerular filtration rate (eGFR) is calculated using the Chronic Kidney Disease Epidemiology Collaboration (CKD-EPI). The CKD-EPI creatinine equation has not been validated in children (<18 years), women or in some racial or ethnic subgroups other than Caucasians and Americans. Testing performed or reported by [facility], a Service of [facility], [address] [place] [id number] John Muñiz MD, Multiple Slide Operator Blood (Blood, Venous) 08/03/2020 7:46 AM EDT 08/03/2020 7:49 AM EDT us London Boyer MD LAB BLOOD ORDERABLES Final Resul t [facility] * (ABNORMAL) CBC (08/03/2020 7:46 AM EDT) Pathologist [facility] White Blood Cells 6.3 (4.0-11.0) K/MM3 [facility] RBC 3.73(L) (4.20-5.40 ) M/MM3 [facility] Hgb 9.7(L) (11.7-15.5 ) GM/DL [facility] Hematocrit 34.5(L) (35.7-45.8 ) % [facility] MCV 92.5 (80.0-100. 0) FL [facility] MCH 26.0(L) (27.0-34.0 ) PG [facility] MCHC 28.1(L) (33.0-37.0 ) g/dL [facility] Platelets 262 (150-460) K/MM3 [facility] RDW-SD 59.2(H) (<47.0) FL [facility] MPV 12.1 (9.4-12.4) [place] [facility] nRBC Count 0.3 #/100 WBC'S [facility] NRBC Absolute 0.0 K/MM3 [facility] Comment: Testing performed or reported by [facility], a Service of [facility], [address] [place] [address] John Muñiz MD, Multiple Slide Operator Blood (Blood, Venous) 08/03/2020 7:46 AM EDT 08/03/2020 7:49 AM EDT us London Boyer MD LAB BLOOD ORDERABLES Final Resul t [facility] documented in this encounter Visit Diagnoses Diagnosis Stage 3b chronic kidney disease (HCC) Essential hypertension documented in this encounter Care Teams Tube Maker Relationship Specialty Start Date End Date Marychuy Ríos MD [address] [place] [address] PCP - General Internal Medicine 11/03/20 documented as of this encounter
--- OUTSIDE RECORDS SUMMARY | 2024-04-02 11:31 | XMS_ITS | Encounter Summary ---
Author Organization [facility] [employer] Address [address] [place] [address] 7 [place] [address] Care Team Providers Care Clinical Specialist Vascular Name Role Phone Unavailable Primary Care Provider Unavailabl e Encounter Details Date Type Department Care Team (Latest Contact Info) Description 02/09/2021 Abstract [facility] CONVERSIONS Dental, Provider, DDS Social [...]
== END 2024-04-02 09:52 | disposition home or self-care (01) ==
LOC: HO.LAB 09:51
PROVIDERS: Visit Provider Internal Medicine Nephrology
DX: N18.31 Chronic kidney disease, stage 3a (principal); I10 Essential (primary) hypertension; N18.32 Chronic kidney disease, stage 3b; D63.1 Anemia in chronic kidney disease
CPT/HCPCS: 36415; 84450; 84460

== ENCOUNTER 2024-04-04 11:19 | Outpatient (AMB) | payer MEDICARE, MEDICAID, SELFPAY ==
--- NOTE | 2024-04-04 11:24 | HO.NEPHOV ---
Vital Signs 04/04/24 11:30 Height 5 ft 8 in Weight 165 lb 8 oz BMI 25.2 BP 174/80 H Blood Pressure Location Lt brachial Position Sitting Pulse 71 Pulse Source Pulse Oximeter Pulse Oximetry (%) 99 Oxygen Delivery Method Room Air Intake Visit Reasons: 1mon follow-up w/labs/ CONF Patient Financial Services Specialist Required: No Accompanied by: Self / Same As Patient Allergies amoxicillin Allergy (Unknown, Verified 04/04/24 11:29) Unknown hydrochlorothiazide Allergy (Unknown, Verified 04/04/24 11:29) Unknown Chase inhibitors Allergy (Unknown, Uncoded 02/27/24 09:44) Unknown latex Allergy (Unknown, Uncoded 02/27/24 09:44) rash HPI Comments Details: Yecenia was seen in follow-up of her chronic kidney disease and hypertension. She had been pale with dropping Hb, edema and dropping iron saturations even after some iron transfusions. She recently had cologuard positivity but has not had any colonoscopies. She has seen GI and was encouraged to have colonoscopy. She denies chest pain or syncope but had intermittent palpitations & dizziness. She has H/O PRBC transfusion. Hb is continuing to drop . She has H/O HI. She had an ECHO . She avoids nonsteroidal anti-inflammatory medications. She maintains good hydration. He is compliant with her current medication regimen. She has seen Dr. Dawson for her coronary artery disease. She does not have any nausea, vomiting or diarrhea. She has been having knee pain. She is due to have colonoscopy but has not heard from GI yet .She is overwhelmed due to personal health issues, moms care etc. [facility] Medical History Chronic kidney disease Anemia in chronic kidney disease Surgical History History of partial hysterectomy Social History Alcohol intake: never Patient Tobacco Use Status: Never used Tobacco Review of Systems Const All systems reviewed & are unremarkable except as noted in HPI and below Physical Exam Vital Signs: Last Vital Signs Pulse 71 04/04/24 11:30 BP 174/80 H 04/04/24 11:30 Pulse Ox 99 04/04/24 11:30 Oxygen Delivery Method Room Air 04/04/24 11:30 BMI result Body Mass Index 25.2 Const General: comfortable and no acute distress Orientation/consciousness: patient oriented x3 HEENT Head: Yes normocephalic Mouth: Normal oral and palatal mucosa present Eyes EOM: EOMs intact bilaterally Neck Neck: Yes supple Resp Auscultation: clear to auscultation bilaterally Cardio Jugular venous distension: no JVD Rate: regular rate GI Palpation (GI): Soft to palpation Auscultation: normal bowel sounds General: Yes no CVA tenderness Back/Spine/Pelvis Back: no CVA tenderness Skin General skin exam: no rashes or lesions noted Neuro General: patient oriented x3 and moves all extremities Office Meds epoetin [id number] 10,000 unit/mL injection solution Performing Provider: London Boyer MD Per[facility] Administered by: London Boyer MD on 04/04/24 12:13 Dose Route Admin Location Dispensed Lot Number Expiration Date [facility] Container Crane Operator 40,000 unit subcut LUE 4 mL [id number] 06/19/25 [id number] [employer] [place] [employer] Results Reviewed Nephrology Results: Hgb 5.3 g/dl (12.0-16.0) L* 03/03/24 WBC 10.2 X10*3/uL (4.8-10.8) 03/03/24 Plt Count 398 X10*3/uL (160-400) 03/03/24 Sodium 143 mmol/L (135-145) 03/03/24 Potassium 4.5 mmol/L (3.3-5.1) 03/03/24 Chloride 113 mmol/L (96-108) H 03/03/24 Carbon Dioxide 22 mmol/L (22-29) 03/03/24 BUN 54 mg/dL (9-16) H 03/03/24 Creatinine 2.30 mg/dL (0.5-1.4) H 03/03/24 Assessment & Plan Assessment & Plan (1) Anemia in chronic kidney disease: Code(s): N18.9 - Chronic kidney disease, unspecified; D63.1 - Anemia in chronic kidney disease Category: Medical Qualifiers: Chronic kidney disease stage: stage 3 (moderate) Chronic kidney disease stage 3 subtype: stage 3b (GFR 30-44) Qualified Code(s): N18.32 - Chronic kidney disease, stage 3b; D63.1 - Anemia in chronic kidney disease (2) Hypertension: Code(s): I10 - Essential (primary) hypertension Category: Medical Qualifiers: Hypertension type: primary hypertension Qualified Code(s): I10 - Essential (primary) hypertension (3) CKD (chronic kidney disease) stage 3, GFR 30-59 ml/min: Code(s): N18.30 - Chronic kidney disease, stage 3 unspecified Category: Medical Qualifiers: Chronic kidney disease stage 3 subtype: stage 3a (GFR 45-59) Qualified Code(s): N18.31 - Chronic kidney disease, stage 3a Plan Yecenia has chronic kidney disease and longstanding hypertension. 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 She is known to have coronary artery disease and has undergone angioplasty and stenting. She has not had upper or lower endoscopy even though she had cologuard positivity. She has seen GI and is due to have colonoscopy. I have arranged 2 units of PRBC. She may need Hematology consult +/- bone marrow biopsy. She needs to maintain low-sodium & K diet. She was given [id number] Unit of Procrit today. I also gave her Prednisone 20 mg daily for 3 weeks.Her renal functions are fairly stable. Follow up blood work ordered Orders: Orders Complete Blood Count Auto Diff Today D63.1 - Anemia in chronic kidney disease, N18.32 - Chronic kidney disease, stage 3b Ferritin Today D63.1 - Anemia in chronic kidney disease, N18.32 - Chronic kidney disease, stage 3b IRON PROFILE Today D63.1 - Anemia in chronic kidney disease, N18.32 - Chronic kidney disease, stage 3b Creatinine Today N18.31 - Chronic kidney disease, stage 3a Blood Urea Nitrogen Today N18.31 - Chronic kidney disease, stage 3a Electrolytes Today N18.31 - Chronic kidney disease, stage 3a Blood Urea Nitrogen 1 Month D63.1 - Anemia in chronic kidney disease, I10 - Essential (primary) hypertension, N18.31 - Chronic kidney disease, stage 3a, N18.32 - Chronic kidney disease, stage 3b Electrolytes 1 Month D63.1 - Anemia in chronic kidney disease, I10 - Essential (primary) hypertension, N18.31 - Chronic kidney disease, stage 3a, N18.32 - Chronic kidney disease, stage 3b AMB Epoetin Injection Practice Supplied Today D63.1 - Anemia in chronic kidney disease, N18.32 - Chronic kidney disease, stage 3b Complete Blood Count Auto Diff 1 Month D63.1 - Anemia in chronic kidney disease, I10 - Essential (primary) hypertension, N18.31 - Chronic kidney disease, stage 3a, N18.32 - Chronic kidney disease, stage 3b Creatinine 1 Month D63.1 - Anemia in chronic kidney disease, I10 - Essential (primary) hypertension, N18.31 - Chronic kidney disease, stage 3a, N18.32 - Chronic kidney disease, stage 3b Coding Level of Care Code Est Pt Level 4 (53592) Diagnoses Anemia in stage 3b chronic kidney disease N18.32; D63.1 Chronic kidney disease stage: stage 3 (moderate) Chronic kidney disease stage 3 subtype: stage 3b (GFR 30-44) Primary hypertension I10 Hypertension type: primary hypertension Stage 3a chronic kidney disease N18.31 Chronic kidney disease stage 3 subtype: stage 3a (GFR 45-59)
[2024-04-04 11:30] VITALS: BP 174/80; PULSE 71; O2SAT 99; BMI 25.2
--- OUTSIDE RECORDS SUMMARY | 2024-04-04 12:11 | XMS_ITS | Encounter Summary ---
Author Organization [facility] [employer] Address [address] [place] [address] [address] [place] [address] Care Team Providers Care Director Of Online Merchandising Name Role Phone Unavailable Primary Care Provider [...]
--- OUTSIDE RECORDS SUMMARY | 2024-04-04 12:11 | XMS_ITS | Clinical Summary ---
Author Organization [facility] Address [address] [place] [address] Phone Care Team Providers Care On Line Csr Name Role Phone Marychuy Ríos MD Primary Care Provider [phone] Allergies Active Allergy Reactions Criticality Noted Date [...] [place]ID [place] Care Teams On Line Csr Relationship Specialty Start Date End Date Marychuy Ríos MD [address] [place] [id number] PCP - General Internal Medicine 11/03/20
--- OUTSIDE RECORDS SUMMARY | 2024-04-04 12:11 | XMS_ITS | Encounter Summary ---
Author Organization [facility] Address [address] [place] [address] Phone Care Team Providers Care City Bailiff Name Role Phone Marychuy Ríos MD Primary Care Provider [phone] Encounter Details Date Type Department Care Team (Late st Contact Info) Description 09/01/2020 Orders Only [facility] [address] [place] [address] London Boyer MD Stage 3b chronic [...] 7:46 AM EDT) Glucose 113(H) (70-99) MG/DL [facility] BUN 42(H) (8-23) MG/DL [facility] Creatinine 2.0(H) (0.5-1.0) MG/DL [facility] Sodium 141 (133-145) MMOL/L [facility] Potassium 5.1 (3.6-5.2) MMOL/L [facility] Chloride 106 (98-107) MMOL/L [facility] Bicarbonate (CO2) 23 (22-29) MMOL/L [facility] Anion Gap 12 (4-17) [facility] Albumin 4.2 (3.4-4.8) GM/DL [facility] Calcium 9.5 (8.6-10.5) MG/DL [facility] Phosphorus, Serum 3.8 (2.5-4.5) MG/DL [facility] Est GFR Non 25 ML/MIN/1.7 3 M2 [facility] Comment: Creatinine based estimated glomerular filtration rate (eGFR) is calculated using the Chronic Kidney Disease Epidemiology Collaboration (CKD-EPI). The CKD-EPI creatinine equation has not been validated in children (<18 years), women or in some racial or ethnic subgroups other than Caucasians and Americans. EST GFR 29 ML/MIN/1.7 3 M2 [facility] Comment: Creatinine based estimated glomerular filtration rate (eGFR) is calculated using the Chronic Kidney Disease Epidemiology Collaboration (CKD-EPI). The CKD-EPI creatinine equation has not been validated in children (<18 years), women or in some racial or ethnic subgroups other than Caucasians and Americans. Testing performed or reported by [facility], a Service of [facility], [address] [place] [id number] John Muñiz MD, Flight Technician Blood (Blood, Venous) 08/03/2020 7:46 AM EDT 08/03/2020 7:49 AM EDT us London Boyer MD LAB BLOOD ORDERABLES Final Resul t [facility] * (ABNORMAL) CBC (08/03/2020 7:46 AM EDT) Pathologist [facility] [place] White Blood Cells 6.3 (4.0-11.0) K/MM3 [facility] RBC 3.73(L) (4.20-5.40 ) M/MM3 [facility] Hgb 9.7(L) (11.7-15.5 ) GM/DL [facility] Hematocrit 34.5(L) (35.7-45.8 ) % [facility] MCV 92.5 (80.0-100. 0) FL [facility] MCH 26.0(L) (27.0-34.0 ) PG [facility] MCHC 28.1(L) (33.0-37.0 ) g/dL [facility] Platelets 262 (150-460) K/MM3 [facility] RDW-SD 59.2(H) (<47.0) FL [facility] MPV 12.1 (9.4-12.4) FL [facility] nRBC Count 0.3 #/100 WBC'S [facility] NRBC Absolute 0.0 K/MM3 [facility] Comment: Testing performed or reported by [facility], a Service of [facility], [address] [place] [address] John Muñiz MD, Flight Technician Blood (Blood, Venous) 08/03/2020 7:46 AM EDT 08/03/2020 7:49 AM EDT us London Boyer MD LAB BLOOD ORDERABLES Final Resul t [facility] documented in this encounter Visit Diagnoses Diagnosis Stage 3b chronic kidney disease (HCC) Essential hypertension documented in this encounter Care Teams City Bailiff Relationship Specialty Start Date End Date Marychuy Ríos MD [address] [place] [address] PCP - General Internal Medicine 11/03/20 documented as of this encounter
--- OUTSIDE RECORDS SUMMARY | 2024-04-04 12:11 | XMS_ITS | Clinical Summary ---
Author Organization [email or web address] [facility] Address [address] 7t [place] [address] Care Team Providers Care Battery Container Inspector Name Role Phone Unavailable Primary Care Provider [...] ESTABLISHED PATIENT Routine 02/09/2021 12:00 AM EST INTRAORAL - COMPLETE SERIES OF RADIOGRAPHIC IMAGES Routine 04/21/2019 12:00 AM EST from Last 3 Months or Most Recently Relevant to Health Maintenance Insurance [place] ST[place] ADULT
--- OUTSIDE RECORDS SUMMARY | 2024-04-04 12:11 | XMS_ITS | Encounter Summary ---
Author Organization [facility] [employer] Address [address] [place] [address] 7 [place] [address] Care Team Providers Care Deblocker Name Role Phone Unavailable Primary Care Provider [...]
== END 2024-04-04 12:27 | disposition home or self-care (01) ==
PROVIDERS: Visit Provider Internal Medicine Nephrology
DX: N18.32 Chronic kidney disease, stage 3b (principal); D63.1 Anemia in chronic kidney disease; I10 Essential (primary) hypertension; N18.31 Chronic kidney disease, stage 3a
CPT/HCPCS: 99214

== ENCOUNTER → 2024-04-04 11:19 | Outpatient (BNVA) | payer MEDICARE, MEDICAID, SELFPAY | PROVIDERS: Visit Provider Internal Medicine Nephrology ==

== ENCOUNTER 2024-04-04 12:26 | Outpatient (REF) | payer MEDICARE, MEDICAID, SELFPAY ==
--- OUTSIDE RECORDS SUMMARY | 2024-04-04 12:51 | XMS_ITS | Encounter Summary ---
Author Organization [facility] [employer] Address [address] [place] [address] 7 [place] [address] Care Team Providers Care Rampman Name Role Phone Unavailable Primary Care Provider [...]
--- OUTSIDE RECORDS SUMMARY | 2024-04-04 12:51 | XMS_ITS | Encounter Summary ---
Author Organization [facility] Address [address] [place] [address] Phone Care Team Providers Care Pressing Machine Tender Name Role Phone Marychuy Ríos MD Primary Care Provider [phone] Encounter Details Date Type Department Care Team (Late st Contact Info) Description 09/01/2020 Orders Only [facility] [address] [place] [address] London Boyer MD Stage 3b chronic [...] 7:46 AM EDT) Glucose 113(H) (70-99) MG/DL [facility] BUN 42(H) (8-23) MG/DL [facility] Creatinine 2.0(H) (0.5-1.0) MG/DL [facility] Sodium 141 (133-145) MMOL/L [facility] Potassium 5.1 (3.6-5.2) MMOL/L [facility] Chloride 106 (98-107) MMOL/L [facility] Bicarbonate (CO2) 23 (22-29) MMOL/L [facility] Anion Gap 12 (4-17) [facility] Albumin 4.2 (3.4-4.8) GM/DL [facility] Calcium 9.5 (8.6-10.5) MG/DL [facility] Phosphorus, Serum 3.8 (2.5-4.5) MG/DL [facility] Est GFR Non 25 ML/MIN/1.7 3 M2 [facility] Comment: Creatinine based estimated glomerular filtration rate (eGFR) is calculated using the Chronic Kidney Disease Epidemiology Collaboration (CKD-EPI). The CKD-EPI creatinine equation has not been validated in children (<18 years), women or in some racial or ethnic subgroups other than Caucasians and Americans. EST GFR 29 ML/MIN/1.7 3 M2 [facility] Comment: Creatinine based estimated glomerular filtration rate (eGFR) is calculated using the Chronic Kidney Disease Epidemiology Collaboration (CKD-EPI). The CKD-EPI creatinine equation has not been validated in children (<18 years), women or in some racial or ethnic subgroups other than Caucasians and Americans. Testing performed or reported by [facility], a Service of [facility], [address] [place] [address] John Muñiz MD, Spindle Repairer Blood (Blood, Venous) 08/03/2020 7:46 AM EDT 08/03/2020 7:49 AM EDT us London Boyer MD LAB BLOOD ORDERABLES Final Resul t [facility] * (ABNORMAL) CBC (08/03/2020 7:46 AM EDT) Pathologist [facility] White Blood Cells 6.3 (4.0-11.0) K/MM3 [facility] RBC 3.73(L) (4.20-5.40 ) M/MM3 [facility] Hgb 9.7(L) (11.7-15.5 ) GM/DL [facility] Hematocrit 34.5(L) (35.7-45.8 ) % [facility] MCV 92.5 (80.0-100. 0) FL [facility] MCH 26.0(L) (27.0-34.0 ) PG [facility] MCHC 28.1(L) (33.0-37.0 ) g/dL [facility] Platelets 262 (150-460) K/MM3 [facility] RDW-SD 59.2(H) (<47.0) FL [facility] MPV 12.1 (9.4-12.4) FL [facility] nRBC Count 0.3 #/100 WBC'S [facility] NRBC Absolute 0.0 K/MM3 [facility] Comment: Testing performed or reported by [facility], a Service of [facility], [address] [place] [address] John Muñiz MD, Spindle Repairer Blood (Blood, Venous) 08/03/2020 7:46 AM EDT 08/03/2020 7:49 AM EDT us London Boyer MD LAB BLOOD ORDERABLES Final Resul t [facility] documented in this encounter Visit Diagnoses Diagnosis Stage 3b chronic kidney disease (HCC) Essential hypertension documented in this encounter Care Teams Pressing Machine Tender Relationship Specialty Start Date End Date Marychuy Ríos MD [address] [place] [address] PCP - General Internal Medicine 11/03/20 documented as of this encounter
--- OUTSIDE RECORDS SUMMARY | 2024-04-04 12:51 | XMS_ITS | Clinical Summary ---
Author Organization [employer] [facility] Address [address] [facility] [address] [facility] 7t [place] [address] Care Team Providers Care Lens Matcher Name Role Phone Unavailable Primary Care Provider [...]
--- OUTSIDE RECORDS SUMMARY | 2024-04-04 12:51 | XMS_ITS | Clinical Summary ---
Author Organization [facility] [place] Address [address] [place] [address] Phone Care Team Providers Care Rehabilitation Assistant Name Role Phone Marychuy Ríos MD Primary Care Provider [phone] Allergies Active Allergy Reactions Criticality Noted Date [...] [place] Care Teams Rehabilitation Assistant Relationship Specialty Start Date End Date Marychuy Ríos MD [address] [place] [phone] PCP - General Internal Medicine 11/03/20
--- OUTSIDE RECORDS SUMMARY | 2024-04-04 12:51 | XMS_ITS | Encounter Summary ---
Author Organization [facility] [employer] Address [address] [place] [address] 7 [place] [address] Care Team Providers Care Lead Enterprise Architect Name Role Phone Unavailable Primary Care Provider [...]
[2024-04-04 13:03] LABS: MANUAL DIFF FLAG NO
[2024-04-04 13:16] LABS: Basophils Percent Auto 0.4 % (0-2); Eosinophils Percent Auto 0.4 % (0-4); Hematocrit 27.5 % (37.0-47.0); Hemoglobin 7.7 g/dl (12.0-16.0); Imm Gran Abs Auto 0.03 X10*3/uL (0.00-0.03); Imm Gran Pct Auto 0.3 % (0.0-0.4); Lymphocytes Absolute Auto 0.7 X10*3/uL (1.2-4.9); Lymphocytes Percent Auto 6.7 % (20-40); Mean Corpuscular Hemoglobin 23.5 pg (27.0-33.0); Mean Corpuscular Volume 83.8 fL (80.0-98.0); Mean Platelet Volume 10.2 fL (9.4-12.3); Monocytes Absolute Auto 0.3 X10*3/uL (0.1-1.2); NRBC Pct Auto 0.2 /100WBC (0.0-0.2); Neutrophils Percent Auto 89.2 % (45-73); Platelet Count 405 X10*3/uL (160-400); Red Blood Count 3.28 X10*6/uL (4.20-5.50); White Blood Count 10.1 X10*3/uL (4.8-10.8)
[2024-04-04 14:04] LABS: Anion Gap 14 (12-20); Blood Urea Nitrogen 54 mg/dL (9-16); Carbon Dioxide 21 mmol/L (22-29); Chloride 111 mmol/L (96-108); Estimated Glomerular Filt Rate 20; Iron 10 mcg/dL (30-160); Percent Iron Saturation 4 % (15-50); Sodium 141 mmol/L (135-145); Total Iron Binding Capacity 229 mcg/dL (228-428); Unsaturated Iron Binding 219 ug/dL
[2024-04-04 14:08] LABS: Ferritin 611 ng/mL (10-250)
== END 2024-04-04 12:27 | disposition home or self-care (01) ==
LOC: HO.10HDL 12:26
PROVIDERS: Visit Provider Internal Medicine Nephrology
DX: I12.9 Hypertensive chronic kidney disease with stage 1 through stage 4 chronic kidney disease, or unspecified chronic kidney disease (principal); N18.32 Chronic kidney disease, stage 3b; D63.1 Anemia in chronic kidney disease
CPT/HCPCS: 36415; 80051; 82565; 82728; 83540; 84520; 85025; 96372; 99212; Q5106

== ENCOUNTER 2024-05-07 07:55 | Outpatient (AMB) | payer MEDICARE, MEDICAID, SELFPAY ==
--- NOTE | 2024-05-07 07:58 | A.OFFVIS_ITS ---
Vital Signs 05/07/24 07:59 Height 5 ft 8 in Weight 168 lb 10.458 oz BMI 25.6 BP 130/80 Blood Pressure Location Lt brachial Position Sitting Pulse 74 Pulse Source Pulse Oximeter Pulse Oximetry (%) 100 Oxygen Delivery Method Room Air Intake Visit Reasons: knee OA Intake Note: Pt presents today with knee OA. Allergies amoxicillin Allergy (Unknown, Verified 05/07/24 08:04) Unknown hydrochlorothiazide Allergy (Unknown, Verified 05/07/24 08:04) Unknown codiene Allergy (Intermediate, Uncoded 05/07/24 08:04) Nausea Chase inhibitors Allergy (Unknown, Uncoded 02/27/24 09:44) Unknown latex Allergy (Unknown, Uncoded 02/27/24 09:44) rash HPI HPI knee OA: Details: Right knee pain is uncontrolled. She saw NICOLE who gave her a right knee cortisone injection in December 2023 but it caused increased pain and swelling in her right foot. Cortisone injection relieved knee pain for 2 months. She then had gel 1 injection 6 weeks ago but it caused increased pain in her right knee. She reports the pain was unbearable that she wanted to kill herself. Pain is not as intense as it was before. Knee brace previously prescribed did not fit her well. She uses a cane to ambulate. Investment Executive prescribed her prednisone 20 mg daily 20 tablets to help relieve her joint symptoms but she only took it for a couple of days because she felt URI symptoms. Whenever she takes prednisone she feels like she is going to be sick. From reviewing EMR prednisone caused her legs to swell. She sent a message to her outpatient coding specialist who prescribed diuretic. She has developed edema in her ankles. Right ankle edema is worse than left ankle edema. She is unable to fit a compression brace because the braces that she has found online on [employer] do not fit well. At this time she does not have a PCP. She took Tylenol this morning, which reduced her joint pain enabling her to come to visit. [facility] Medical History Chronic kidney disease Anemia in chronic kidney disease Surgical History History of partial hysterectomy Social History Alcohol intake: never Patient Tobacco Use Status: Never used Tobacco Review of Systems Const All systems reviewed & are unremarkable except as noted in HPI and below Physical Exam Vital Signs: Last Vital Signs Pulse 74 05/07/24 07:59 BP 130/80 05/07/24 07:59 Pulse Ox 100 05/07/24 07:59 Oxygen Delivery Method Room Air 05/07/24 07:59 BMI result Body Mass Index 25.6 Const Other: General: Comfortable Skin: No lesions seen MSK: Tender to palpate right lateral joint line of knee with mild to moderate effusion. Knee flexion 30 degrees. She has edema of bilateral ankles right worse than left ankle. No tenderness on palpation of right ankle. Assessment & Plan Assessment & Plan (1) Osteoarthritis of right knee: Comment: Uncontrolled knee pain. She has failed 1 cortisone injection and hyaluronic acid injection, gel 1. We discussed medical management of knee osteoarthritis. She has temporary benefit with Tylenol. Pain is uncontrolled and she would not be able to participate in physical therapy. We discussed the importance of bracing and trying to control edema in legs to enable improved ambulation. We discussed in setting of CKD she has limited with medications to use. Contrain dication to oral NSAIDs and duloxetine. We discussed considering gabapentin. Discussed side effects, benefits and drug monitoring. We also discussed considering geniculate nerve block with pain management referral. She would like to proceed with trying gabapentin. Code(s): M17.11 - Unilateral primary osteoarthritis, right knee Category: Medical Qualifiers: Osteoarthritis type: primary Qualified Code(s): M17.11 - Unilateral primary osteoarthritis, right knee Plan: Knee brace prescribed for custom hinged brace. Knee brace is medically nece ssary for patient to provide knee support. Start gabapentin 100 mg q.h.s. for 1 week then increase to gabapentin twice a day She will think about trying another cortisone injection Labs in expanse reviewed She is in the process of trying to get her mother's PCP to take her on as a patient. I recommended that if she has a PCP to request prescription for custom compression stockings. In the meantime I recommended that she try to order another compression stockings from [facility] or try Chase wrap Return to clinic in 3 months (2) Gout: Comment: I am concerned that she may have developed acute gout flare right foot after receiving right knee cortisone injection in 12/2023. At this time she does not have a clinical presentation for acute gout. I will monitor clinically. Rheumatology history: Crystal proven 11/2020 R MTP. Treated with allopurinol and colchicine. Patient self d/c allopurinol. Contraindication to oral NSAID u se due to CKD history. Code(s): M10.9 - Gout, unspecified Category: Medical Qualifiers: Chronicity: chronic Gout etiology: due to renal impairment Gout site: unspecified site Presence of tophus: without tophus Qualified Code(s): M1A.30X0 - Chronic gout due to renal impairment, unspecified site, without tophus (tophi) Plan: Monitor clinically Return to clinic in 3 months Orders: Orders XR knee RT 2V Today M17.0 - Bilateral primary osteoarthritis of knee Medications: New gabapentin Take 1 tablet at bedtime for 1 week then increase to 1 tablet twice a day. Refill 60 tablets x 2 refills. 100 mg PO BID 49 caps 0RF leg brace (Knee Support Brace) As directed Right hinged knee brace Dx: osteoarthritis knee 1 ea 0RF Coding Level of Care Code Est Pt Level 4 (55133) Complex EM visit Add On G2211 Diagnoses Primary osteoarthritis of right knee M17.11 Osteoarthritis type: primary Chronic gout due to renal impairment without tophus, unspecified site M1A.30X0 Chronicity: chronic Gout etiology: due to renal impairment Gout site: unspecified site Presence of tophus: without tophus
--- OUTSIDE RECORDS SUMMARY | 2024-05-07 07:58 | XMS_ITS | Clinical Summary ---
Author Organization [facility] Address [address] [place] [address] Phone Care Team Providers Care Rope Machine Setter Name Role Phone Marychuy Ríos MD Primary Care Provider [phone] Allergies Active Allergy Reactions Criticality Noted Date [...] [place] Care Teams Rope Machine Setter Relationship Specialty Start Date End Date Marychuy Ríos MD [address] [place] [phone] PCP - General Internal Medicine 11/03/20
--- OUTSIDE RECORDS SUMMARY | 2024-05-07 07:58 | XMS_ITS | Encounter Summary ---
Author Organization [facility] [employer] Address [address] [place] [address] 7 [place] [address] Care Team Providers Care Shook Splicer Name Role Phone Unavailable Primary Care Provider [...]
--- OUTSIDE RECORDS SUMMARY | 2024-05-07 07:58 | XMS_ITS | Encounter Summary ---
Author Organization [facility] [employer] Address [address] [place] [address] 7 [place] [address] Care Team Providers Care Hand Worker Name Role Phone Unavailable Primary Care Provider [...]
--- OUTSIDE RECORDS SUMMARY | 2024-05-07 07:58 | XMS_ITS | Clinical Summary ---
Author Organization [employer] [facility] Address [address] [facility] 7t [place] [address] Care Team Providers Care Email Marketing Specialist Name Role Phone Unavailable Primary Care Provider [...]
--- OUTSIDE RECORDS SUMMARY | 2024-05-07 07:58 | XMS_ITS | Encounter Summary ---
Author Organization [facility] [place] Address [address] [place] [address] Phone Care Team Providers Care Content Checker Name Role Phone Marychuy Ríos MD Primary Care Provider [phone] Encounter Details Date Type Department Care Team (Late st Contact Info) Description 09/01/2020 Orders Only [facility] [address] [place] [address] London Boyer MD Stage 3b chronic [...] 7:46 AM EDT) Glucose 113(H) (70-99) MG/DL [facility] BUN 42(H) (8-23) MG/DL [facility] Creatinine 2.0(H) (0.5-1.0) MG/DL [facility] Sodium 141 (133-145) MMOL/L [facility] Potassium 5.1 (3.6-5.2) MMOL/L [facility] Chloride 106 (98-107) MMOL/L [facility] Bicarbonate (CO2) 23 (22-29) MMOL/L [facility] Anion Gap 12 (4-17) [facility] Albumin 4.2 (3.4-4.8) GM/DL [facility] Calcium 9.5 (8.6-10.5) MG/DL [facility] Phosphorus, Serum 3.8 (2.5-4.5) MG/DL [facility] Est GFR Non 25 ML/MIN/1.7 3 M2 [facility] Comment: Creatinine based estimated glomerular filtration rate (eGFR) is calculated using the Chronic Kidney Disease Epidemiology Collaboration (CKD-EPI). The CKD-EPI creatinine equation has not been validated in children (<18 years), women or in some racial or ethnic subgroups other than Caucasians and Americans. EST GFR 29 ML/MIN/1.7 3 M2 [facility] Comment: Creatinine based estimated glomerular filtration rate (eGFR) is calculated using the Chronic Kidney Disease Epidemiology Collaboration (CKD-EPI). The CKD-EPI creatinine equation has not been validated in children (<18 years), women or in some racial or ethnic subgroups other than Caucasians and Americans. Testing performed or reported by [facility], a Service of [facility], [address] [place] [id number] John Muñiz MD, National Service Officer Blood (Blood, Venous) 08/03/2020 7:46 AM EDT 08/03/2020 7:49 AM EDT us London Boyer MD LAB BLOOD ORDERABLES Final Resul t [facility] * (ABNORMAL) CBC (08/03/2020 7:46 AM EDT) Pathologist [facility] White Blood Cells 6.3 (4.0-11.0) K/MM3 [facility] RBC 3.73(L) (4.20-5.40 ) M/MM3 [facility] Hgb 9.7(L) (11.7-15.5 ) GM/DL [facility] Hematocrit 34.5(L) (35.7-45.8 ) % [facility] MCV 92.5 (80.0-100. 0) FL [facility] MCH 26.0(L) (27.0-34.0 ) PG [facility] MCHC 28.1(L) (33.0-37.0 ) g/dL [facility] Platelets 262 (150-460) K/MM3 [facility] RDW-SD 59.2(H) (<47.0) FL [facility] MPV 12.1 (9.4-12.4) FL [facility] nRBC Count 0.3 #/100 WBC'S [facility] NRBC Absolute 0.0 K/MM3 [facility] Comment: Testing performed or reported by [facility], a Service of [facility], [address] [place] [address] John Muñiz MD, National Service Officer Blood (Blood, Venous) 08/03/2020 7:46 AM EDT 08/03/2020 7:49 AM EDT us London Boyer MD LAB BLOOD ORDERABLES Final Resul t [facility] documented in this encounter Visit Diagnoses Diagnosis Stage 3b chronic kidney disease (HCC) Essential hypertension documented in this encounter Care Teams Content Checker Relationship Specialty Start Date End Date Marychuy Ríos MD [address] [place] [address] PCP - General Internal Medicine 11/03/20 documented as of this encounter
[2024-05-07 07:59] VITALS: BP 130/80; PULSE 74; O2SAT 100; BMI 25.6
== END 2024-05-07 09:12 | disposition home or self-care (01) ==
LOC: HO.RHES 07:55
PROVIDERS: Visit Provider Internal Medicine Rheumatology
DX: M17.11 Unilateral primary osteoarthritis, right knee (principal); M1A.30X0 Chronic gout due to renal impairment, unspecified site, without tophus (tophi)
CPT/HCPCS: 99214; G2211

== ENCOUNTER 2024-05-07 07:55 | Outpatient (REF) | payer MEDICARE, MEDICAID, SELFPAY ==
--- NOTE | ~2024-05-07 | XR_ITS ---
EXAMINATION: XR KNEE 1-2 VIEWS RIGHT HISTORY: M17.0 - Bilateral primary osteoarthritis of knee COMPARISON: There are no prior studies available for comparison. FINDINGS: Three views of the right knee are submitted. The bones are osteopenic. There is no fracture or dislocation. There is severe osteoarthritis of the lateral compartment with joint space narrowing and osteophyte formation. There is a small joint effusion. There is calcification of the popliteal artery. XR/XR knee RT 2V IMPRESSION: Osteopenia. Small joint effusion. Severe osteoarthritis of the lateral compartment. Electronically signed by: Raphael Holt MD 05/07/2024 03:20 PM EDT
[2024-05-07 10:15] LABS: MANUAL DIFF FLAG NO
[2024-05-07 11:14] LABS: Basophils Percent Auto 0.4 % (0-2); Eosinophils Absolute Auto 0.1 X10*3/uL (0.0-0.4); Imm Gran Abs Auto 0.06 X10*3/uL (0.00-0.03); Imm Gran Pct Auto 0.7 % (0.0-0.4); Lymphocytes Absolute Auto 1.7 X10*3/uL (1.2-4.9); Lymphocytes Percent Auto 20.3 % (20-40); Mean Corpuscular HGB Conc 28.1 g/dl (31.0-35.0); Mean Corpuscular Hemoglobin 23.9 pg (27.0-33.0); Mean Platelet Volume 9.8 fL (9.4-12.3); Monocytes Absolute Auto 0.8 X10*3/uL (0.1-1.2); Monocytes Percent Auto 10.1 % (2-11); Neutrophils Absolute Auto 5.5 x10*3/uL (2.0-8.3); Neutrophils Percent Auto 67.5 % (45-73); Platelet Count 464 X10*3/uL (160-400); Red Blood Count 2.47 X10*6/uL (4.20-5.50); Red Cell Distribution Width 20.4 % (11.0-16.0); White Blood Count 8.2 X10*3/uL (4.8-10.8)
[2024-05-07 11:17] LABS: Hemoglobin 5.9 g/dl (12.0-16.0)
[2024-05-07 11:18] LABS: NRBC Pct Auto 1.2 /100WBC (0.0-0.2)
[2024-05-07 11:37] LABS: Anion Gap 12 (12-20); Blood Urea Nitrogen 49 mg/dL (9-16); Carbon Dioxide 24 mmol/L (22-29); Chloride 112 mmol/L (96-108); Estimated Glomerular Filt Rate 19; Sodium 143 mmol/L (135-145)
== END 2024-05-07 07:56 | disposition home or self-care (01) ==
LOC: HO.XRAY 07:55
PROVIDERS: Absent Provider Internal Medicine Nephrology; Visit Provider Internal Medicine Rheumatology
DX: N18.31 Chronic kidney disease, stage 3a (principal); I10 Essential (primary) hypertension; N18.32 Chronic kidney disease, stage 3b; D63.1 Anemia in chronic kidney disease; M17.0 Bilateral primary osteoarthritis of knee; M1A.30X0 Chronic gout due to renal impairment, unspecified site, without tophus (tophi)
CPT/HCPCS: 36415; 73560; 80051; 82565; 84520; 85025; 99212

== ENCOUNTER → 2024-05-07 10:19 | Outpatient (BNV) | payer MEDICARE, MEDICAID, SELFPAY | PROVIDERS: Absent Provider Internal Medicine Nephrology; Visit Provider Radiology Diagnostic Radiology | DX: M17.0 Bilateral primary osteoarthritis of knee (principal) | CPT/HCPCS: 73560 ==

== ENCOUNTER 2024-05-08 12:21 | Inpatient (IN) | payer MEDICARE, MEDICAID, SELFPAY ==
[2024-05-08] VITALS (16 sets, daily range): BP systolic 152–208; BP diastolic 45–100; PULSE 61–75; RESP 15–22; TEMP 36.5–37.2; O2SAT 96–100; BMI 27.2
--- NOTE | ~2024-05-08 | XR_ITS ---
EXAMINATION: XR CHEST 2 VIEWS HISTORY: chest pain, dizziness COMPARISON: There are no prior studies for comparison. FINDINGS: PA and lateral views of the chest are submitted. The lungs are expanded and clear. There is no pleural effusion, pneumothorax, or pulmonary vascular congestion. The heart is enlarged. The aorta is calcified. There is degenerative disc disease of the spine. XR/XR chest 2V IMPRESSION: Cardiomegaly. The lungs are clear. Electronically signed by: Raphael Holt MD 05/08/2024 01:21 PM EDT
--- NOTE | ~2024-05-08 | US_ITS ---
EXAMINATION: US TRIPLEX LOWER EXTREMITY, BILATERAL CLINICAL INFORMATION: Edema, lower extremities. History of PVT. COMPARISON: None available. TECHNIQUE: Color-flow triplex imaging with spectral analysis and compression Doppler were performed on the bilateral lower extremities. FINDINGS: There is normal phasic flow compressibility and augmentation in the interrogated vessels of the lower extremities with the exception of the left common femoral vein demonstrated are several compressibility and linear intraluminal echogenicity. There is no Horvath's cyst. US/US venous duplex LE BI IMPRESSION: No acute deep venous thrombosis. 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 Electronically signed by: Neftali Infante MD 05/13/2024 02:17 PM EDT
--- NOTE | 2024-05-08 12:31 | ED_ITS ---
HPI - General Adult General Chief complaint: Chest Pain Stated complaint: CHEST DISCOMFORT,DIZZINESS Time Seen by Provider: 05/08/24 12:31 Source: patient and EMS Mode of arrival: EMS Limitations: no limitations History of Present Illness ED Provider: Linda Lomeli PA-C HPI narrative: Patient is a 74 year old assigned female at with a history of hypertension, hyperthyroidism, diabetes mellitus type 2 diagnosed in 2007 subsequently on no medications controlled with diet, dyslipidemia, chronic kidney disease stage III, chronic anemia previously requiring transfusion,?right coronary artery stenting?Synergy 3.0?x 32 mm?October 2018, pulmonary embolism 2017 currently on Eliquis, presenting to the emergency department today with dizziness and chest pain on exertion. Patient states that over the last day she has had chest pain and dizziness on exertion. Patient states that she was told yesterday her hemoglobin was low but she put off having a transfusion done because she does not enjoy getting them. 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 Patient denies any lightheadedness, abdominal pain, nausea, vomiting, fever, chills, blurry vision, double vision, loss of vision, back pain, night sweats, pain with urination, increased urinary frequency, increased urinary urgency, blood in her urine or stool, syncope or a near syncopal episode, recent trauma or falls, bowel incontinence, bladder incontinence, or any other complaints at this time. Onset (ago): day(s) Relieving factors: rest Exacerbating factors: movement Associated symptoms: chest pain Treatments prior to arrival: none Related Data Home Medications ?Medication ?Instructions ?Recorded ?Confirmed apixaban 2.5 mg tablet (Eliquis) 2.5 mg PO BID 01/30/23 05/08/24 spironolactone 25 mg tablet 12.5 mg PO DAILY 04/04/23 05/08/24 ascorbate calcium (vitamin C) 500 1 g PO BEDTIME 02/27/24 05/08/24 mg tablet cholecalciferol (vitamin D3) 10 10 mcg PO DAILY 02/27/24 05/08/24 mcg (400 unit) capsule mecobalamin (vitamin B12) 1,000 1,000 mcg PO DAILY 02/27/24 05/08/24 mcg chewable tablet acetaminophen 500 mg tablet 1,500 mg PO DAILY PRN Pain 05/08/24 05/08/24 aspirin 325 mg tablet 325 - 650 mg PO DAILY PRN Pain 05/08/24 05/08/24 bumetanide 1 mg tablet 1 mg PO DAILY PRN Fluid Retention 05/08/24 05/08/24 clonidine HCl 0.1 mg tablet 0.1 mg PO TID 05/08/24 05/08/24 metoprolol tartrate 50 mg tablet 150 mg PO TID 05/08/24 05/08/24 Previous Rx's ?Medication ?Instructions ?Recorded isosorbide mononitrate 30 mg 30 mg PO TID #270 tabs 02/25/24 tablet,extended release 24 hr leg brace (Knee Support Brace) #1 ea 05/07/24 Allergies Allergy/AdvReac Type Severity Reaction Status Date / Time amoxicillin Allergy Unknown Unknown Verified 05/08/24 12:53 hydrochlorothiazide Allergy Unknown Unknown Verified 05/08/24 12:53 codiene Allergy Intermediate Nausea Uncoded 05/08/24 12:53 Chase inhibitors Allergy Unknown Unknown Uncoded 05/08/24 12:53 latex Allergy Unknown rash Uncoded 05/08/24 12:53 Review of Systems 2 Constitutional: Constitutional: Reports no additional constitutional complaints, Denies chills, Denies fever(s) and Denies night sweats Eyes: Eyes: Reports no additional eye complaints, Denies blurry vision, Denies change in vision, Denies diplopia, Denies eye discharge, Denies loss of vision and Denies eye pain ENT: Reports dizziness Cardiovascular: Cardiovascular: Reports no additional cardiovascular complaints, Reports chest pain (with exertion), Denies lightheadedness, Denies Loss of Consciousness and Denies dyspnea Respiratory: Respiratory: Reports no additional respiratory complaints and Denies dyspnea Gastrointestinal: Gastrointestinal: Reports no additional gastrointestinal complaints, Denies abdominal pain, Denies melena, Denies hematochezia, Denies change in bowel habits and Denies change in stool character Genitourinary: Genitourinary: Denies hematuria, Denies urinary frequency, Denies dysuria, Denies urinary incontinence, Denies urinary hesitancy and Denies urinary urgency Musculoskeletal: Musculoskeletal: Reports no additional musculoskeletal complaints, Denies numbness and Denies tingling Neurologic: Reports dizziness, Denies loss of vision, Denies numbness and Denies tingling Psychiatric: Psychiatric: Reports no additional psychiatric complaints, Reports depression, Denies homicidal ideation and Denies suicidal ideation Endocrine: Endocrine: Reports no additional endocrine complaints Hematologic/Lymphatic: Hematologic/Lymphatic: Reports no additional hematologic/lymphatic complaints Allergic/Immunologic: Allergic/Immunologic: Reports no additional allergic/immunologic complaints [facility] Past Medical History Attestation statement: The following information was validated with the patient. Source: old records reviewed and nursing notes reviewed Medical History Chronic kidney disease Anemia in chronic kidney disease Surgical History History of partial hysterectomy Social History Social History Alcohol intake: never Patient Tobacco Use Status: Never used Tobacco Smoked in Last 30 Days: No Use of substances other than those prescribed or required for medical reasons: No Advance Directives: No Advance Directives Information Provided: Yes Do you have a plan to hurt others: No Plan Physical Exam ED Vital Signs: Vital Signs - 24 hr 05/08/24 12:51 05/08/24 14:14 Temperature 98.6 F 98.6 F Pulse Rate 74 75 Respiratory Rate 20 19 Blood Pressure 165/64 H 164/50 H Pulse Oximetry 100 99 Oxygen Delivery Method Room Air Room Air BMI result Body Mass Index 27.2 Const General: cooperative, no acute distress, alert and awake Nutritional Appearance: well nourished Orientation/consciousness: patient oriented x3 Limitations: no limitations [facility] Head: Yes normal to inspection and Yes atraumatic Ears: hearing grossly normal bilaterally and external ears normal General nose exam: Normal external nose present, no nasal discharge noted and no epistaxis Face and sinus: Yes normal facial exam, No abrasion and No laceration Mouth: Normal oral and palatal mucosa present, no drooling and no muffled voice Eyes General: appearance normal, both eyes and all related structures Periorbital: periorbital findings normal Eyelids: Yes eyelids normal Conjunctivae: conjunctivae normal Pupils: Equal, round and reactive pupils present EOM: EOMs intact bilaterally Neck Neck: Yes normal visual inspection, Yes full ROM and Yes no lymphadenopathy Chest Chest palpation & inspection: normal inspection of the chest Resp Effort & Inspection: normal respiratory effort and able to speak in complete sentences GI Inspection: Yes normal to inspection Neuro General: patient oriented x3, moves all extremities and CN's II-XI intact bilaterally Cranial nerves: Yes Equal, round and reactive pupils present Cognition (Neuro): normal cognition Extrem General: Yes normal to inspection, Yes full ROM and Yes capillary refill normal Psych Appearance: grossly normal Mental Status: mental status grossly normal Affect: normal affect Attitude: cooperative Thought process: Normal thought process present Thought content: Normal thought content present Insight: Good insight present (Psych) Medical Decision Making Medical Decision Making MDM Narrative: Patient is a 74 year old assigned female at with a history of hypertension, hyperthyroidism, diabetes mellitus type 2 diagnosed in 2007 subsequently on no medications controlled with diet, dyslipidemia, chronic kidney disease stage III, chronic anemia previously requiring transfusion,?right coronary artery stenting?Synergy 3.0?x 32 mm?October 2018, pulmonary embolism 2017 currently on Eliquis, presenting to the emergency department today with dizziness and chest pain on exertion. Patient's physical exam was as noted in the physical exam portion of this note. Patient's blood work showed hgb 5.2, hct 18.9, CR 2.27, BUN 49, mag 2.7, first trop 24 - rpt set for 3pm draw, albumin 3.0, bnp 368. Patient's EKG was unremarkable. Patient's chest x-ray showed no acute process. Patient consented to having a blood transfusion and appropriate consent was signed. I spoke to the hospitalist team who agreed to admission. I explained my physical exam findings as well as all test results to the patient. I answered all questions asked by the patient. Patient verbalized agreement and understanding with this treatment plan and admission. Patient had expressed vague statements of feeling overwhelmed and depressed secondary to having to take care of her elderly mother. CARE consult placed. Patient denies any current SI or HI. Differential Diagnosis Differential Diagnoses: The differential diagnosis associated with the presentation includes Acute on chronic anemia Depression Weakness Admission/Observation Consideration of admission/observation: Escalation of care including admission/observation considered Patient admitted as noted in the MDM Rationale portion of this note. Consult Healthcare Provider Management of the patient was discussed with: Hospitalist (agreed to admission as noted in the MDM Rationale portion of this note.) Lab Data [facility] Lab Attestation statement: I reviewed the patient's lab results. My interpretation of these results are in the MDM Rationale portion of this note. 05/08/24 12:59 05/08/24 12:59 Labs: Lab Results 05/08/24 05/08/24 Range/Units 12:59 14:35 WBC 6.6 (4.8-10.8) X10*3/uL RBC 2.20 L (4.20-5.50) X10*6/uL Hgb 5.2 L* (12.0-16.0) g/dl Hct 18.9 L* (37.0-47.0) % MCV 85.9 (80.0-98.0) fL MCH 23.6 L (27.0-33.0) pg MCHC 27.5 L (31.0-35.0) g/dl RDW 20.6 H (11.0-16.0) % Plt Count 397 (160-400) X10*3/uL MPV 9.3 L (9.4-12.3) fL Immature Gran % (Auto) 0.6 H (0.0-0.4) % Neut % (Auto) 73.6 H (45-73) % Lymph % (Auto) 13.8 L (20-40) % Faulk % (Auto) 10.7 (2-11) % Eos % (Auto) 0.8 (0-4) % Baso % (Auto) 0.5 (0-2) % Lymph # (Auto) 0.9 L (1.2-4.9) X10*3/uL Faulk # (Auto) 0.7 (0.1-1.2) X10*3/uL Eos # (Auto) 0.1 (0.0-0.4) X10*3/uL Baso # (Auto) 0.0 (0.0-0.2) X10*3/uL Abs Immat Gran (auto) 0.04 H (0.00-0.03) X10*3/uL Absolute Neuts (auto) 4.9 (2.0-8.3) x10*3/uL Absolute Nucleated RBC 0.040 H (0.0-0.012) X10*3/uL Nucleated RBC % (auto) 0.6 H (0.0-0.2) /100WBC Absolute Retic 0.057 (0.026-0.095) X10*6/uL Percent Retic 2.6 H (0.5-1.8) % Immature Retic Fraction 40.4 H (3.0-15.9) % Retic Hgb Equivalent 18.8 L (30.0-35.0) pg PT 15.9 H (10.9-12.4) SEC INR 1.4 H (0.9-1.1) Sodium 142 (135-145) mmol/L Potassium 4.9 (3.3-5.1) mmol/L Chloride 112 H (96-108) mmol/L Carbon Dioxide 23 (22-29) mmol/L Anion Gap 12 (12-20) BUN 49 H (9-16) mg/dL Creatinine 2.27 H (0.5-1.4) mg/dL Estim Creat Clear Calc 24.7 Estimated GFR 21 Random Glucose 125 H (60-115) mg/dL Calcium 8.9 D (8.4-10.2) mg/dL Magnesium 2.7 H (1.6-2.6) mg/dL Total Bilirubin 0.3 (0.0-1.0) mg/dL AST 16 (5-31) U/L ALT 8 (0-31) U/L Alkaline Phosphatase 107 (39-117) U/L Troponin I High Sens 24.0 H (<3.5-17.0) ng/L B-Natriuretic Peptide 368 H (<100) pg/mL Total Protein 6.9 (6.5-8.0) g/dL Albumin 3.0 L (3.5-5.0) g/dL TSH 1.39 (0.32-4.0) uIU/mL Urine Color Yellow Urine Appearance Clear Urine pH 6.0 (5.0-9.0) Ur Specific [place] 1.015 (1.005-1.025) Urine Protein 300 (3+) H (Neg-Trace) mg/dL Urine Glucose (UA) Negative (Negative) mg/dL Urine Ketones Negative (Negative) mg/dL Urine Blood Negative (Negative) Urine Nitrite Negative (Negative) Ur Leukocyte Esterase Negative (Negative) Urine RBC 0-2 (0-2) /HPF Urine WBC 0-5 (0-5) /HPF Ur Squamous Epith Cells 0-2 (0-2) /HPF Urine Bacteria None Seen (None Seen) Hyaline Casts 0-2 (0-2) /LPF Influenza Type A (PCR) NEGATIVE (Negative) Influenza Type B (PCR) NEGATIVE (Negative) RSV RNA Qual (PCR) NEGATIVE (Negative) SARS-CoV-2 RNA (RT-PCR) NEGATIVE (Negative) Blood Type B Positive Antibody Screen POSITIVE Antibody Identification Anti-K Crossmatch (AHG) See Detail Blood Bank Comment Technical Independent Interpretation I performed an independent interpretation of an: EKG and Plain X-Ray Interpretation: My interpretation is in agreement with the radiologist's impression of this imaging study. L EXAMINATION: XR CHEST 2 VIEWS HISTORY: chest pain, dizziness COMPARISON: There are no prior studies for comparison. FINDINGS: PA and lateral views of the chest are submitted. The lungs are expanded and clear. There is no pleural effusion, pneumothorax, or pulmonary vascular congestion. The heart is enlarged. The aorta is calcified. There is degenerative disc disease of the spine. XR/XR chest 2V IMPRESSION: Cardiomegaly. The lungs are clear. Electronically signed by: Raphael Holt MD 05/08/2024 01:21 PM EDT RP Dictated By: Raphael Holt MD Signed By: Electronically signed by Raphael Holt MD 05/08/24 1321 I independently interpreted this EKG and am in agreement with the below findings: Vent. Rate: 72 BPM Atrial Rate: 72 BPM P-R Int: 140 ms QRS Dur: 82 ms QT Int: 368 ms P-R-T Axes: 51 15 11 degrees QTcB Int: 402 ms Normal sinus rhythm with sinus arrhythmia Cannot rule out Anterior infarct (cited on or before 01-Jan-2024) When compared with ECG of 01-Jan-2024 14:12, No significant change was found DD/ 1245 Radiology Impression Discussion of test interpretation with radiology: I have reviewed the radiologist's reading. Independent Historian Clinical information obtained from an independent historian. History obtained from or confirmed by: EMS (EMS provided additional history adn confirmed the history provided by the patient. ) Critical Care Time Critical Care Time Critical Care Time: Yes Total Critical Care Time: 48 Attestation: I spent 48 minutes of Critical Care Time with this patient. This does not include time spent on separately reported billable procedures. Discharge Plan Discharge Clinical Impression: Anemia Patient Disposition: Admitted As Inpatient Prescriptions: No Action isosorbide mononitrate 30 mg tablet extended release 24 hr 30 mg PO TID Qty: 270 3RF clonidine HCl 0.1 mg tablet 0.1 mg PO TID aspirin 325 mg Tablet 325 - 650 mg PO DAILY PRN (Reason: Pain) acetaminophen 500 mg Tablet 1,500 mg PO DAILY PRN (Reason: Pain) metoprolol tartrate 50 mg tablet 150 mg PO TID bumetanide 1 mg tablet 1 mg PO DAILY PRN (Reason: Fluid Retention) Eliquis 2.5 mg tablet 2.5 mg PO BID spironolactone 25 mg tablet 12.5 mg PO DAILY (DME) Knee Support Brace Misc See Rx Instructions .Route Qty: 1 0RF Rx Instructions: As directed Right hinged knee brace Dx: osteoarthritis knee ascorbate calcium (vitamin C) 500 mg tablet 1 g PO BEDTIME cholecalciferol (vitamin D3) 10 mcg (400 unit) capsule 10 mcg PO DAILY mecobalamin (vitamin B12) 1,000 mcg tablet,chewable 1,000 mcg PO DAILY Print Language: Bermudian
--- NOTE | 2024-05-08 12:32 | ECG_ITS ---
Test Reason : chest discomfort Blood Pressure : */* mmHG Vent. Rate : 72 BPM Atrial Rate : 72 BPM P-R Int : 140 ms QRS Dur : 82 ms QT Int : 368 ms P-R-T Axes : 51 15 11 degrees QTcB Int : 402 ms Normal sinus rhythm with sinus arrhythmia Cannot rule out Anterior infarct (cited on or before 01-Jan-2024) Abnormal ECG When compared with ECG of 01-Jan-2024 14:12, No significant change was found Referred By: Linda Lomeli Electronically Signed By: Eulalio Herrera
[2024-05-08 13:07] LABS: MANUAL DIFF FLAG NO
[2024-05-08 13:09] LABS: Basophils Percent Auto 0.5 % (0-2); Eosinophils Absolute Auto 0.1 X10*3/uL (0.0-0.4); Eosinophils Percent Auto 0.8 % (0-4); Imm Gran Abs Auto 0.04 X10*3/uL (0.00-0.03); Imm Gran Pct Auto 0.6 % (0.0-0.4); Immature Retic Fraction 40.4 % (3.0-15.9); Lymphocytes Absolute Auto 0.9 X10*3/uL (1.2-4.9); Lymphocytes Percent Auto 13.8 % (20-40); Mean Corpuscular HGB Conc 27.5 g/dl (31.0-35.0); Mean Corpuscular Hemoglobin 23.6 pg (27.0-33.0); Mean Corpuscular Volume 85.9 fL (80.0-98.0); Mean Platelet Volume 9.3 fL (9.4-12.3); Monocytes Absolute Auto 0.7 X10*3/uL (0.1-1.2); Monocytes Percent Auto 10.7 % (2-11); NRBC Pct Auto 0.6 /100WBC (0.0-0.2); Neutrophils Absolute Auto 4.9 x10*3/uL (2.0-8.3); Neutrophils Percent Auto 73.6 % (45-73); Platelet Count 397 X10*3/uL (160-400); Red Cell Distribution Width 20.6 % (11.0-16.0); Retic HGB Equivalent 18.8 pg (30.0-35.0); Reticulocyte Percent 2.6 % (0.5-1.8); Reticulocytes Absolute 0.057 X10*6/uL (0.026-0.095); White Blood Count 6.6 X10*3/uL (4.8-10.8)
[2024-05-08 13:13] LABS: Hemoglobin 5.2 g/dl (12.0-16.0)
[2024-05-08 13:14] LABS: Hematocrit 18.9 % (37.0-47.0); INTERNATIONAL NORM RATIO 1.4 (0.9-1.1); Prothrombin Time 15.9 SEC (10.9-12.4)
[2024-05-08 13:23] LABS: Alanine Aminotransferase 8 U/L (0-31); Alkaline Phosphatase 107 U/L (39-117); Anion Gap 12 (12-20); Aspartate Amino Transferase 16 U/L (5-31); Bilirubin Total 0.3 mg/dL (0.0-1.0); Blood Urea Nitrogen 49 mg/dL (9-16); Calcium 8.9 mg/dL (8.4-10.2); Carbon Dioxide 23 mmol/L (22-29); Chloride 112 mmol/L (96-108); Creatinine Clr Calc Pharmacy 24.7; Estimated Glomerular Filt Rate 21; Glucose Random 125 mg/dL (60-115); Magnesium 2.7 mg/dL (1.6-2.6); Potassium 4.9 mmol/L (3.3-5.1); Sodium 142 mmol/L (135-145); Total Protein 6.9 g/dL (6.5-8.0)
[2024-05-08 13:29] LABS: B Type Natriuretic Peptide 368 pg/mL (<100)
[2024-05-08 13:45] LABS: TSH reflex Free T4 1.39 uIU/mL (0.32-4.0)
[2024-05-08 13:53] LABS: Influenza A PCR NEGATIVE (Negative); Influenza B PCR NEGATIVE (Negative); Resp Syncy Virus RNA Qual PCR NEGATIVE (Negative); SARS COV2 PCR INHOUSE NEGATIVE (Negative)
[2024-05-08 14:42] LABS: Appearance Urine Clear; Color Urine Yellow; Glucose Urine UA Negative (Negative); Leukocyte Esterase Urine Negative (Negative); Nitrite Urine Negative (Negative); Specific Gravity - Urine 1.015 (1.005-1.025); UMIC TRIGGER UACC YES; Urine Blood Negative (Negative); Urine Ketones Negative (Negative); Urine Protein 300 (3+) mg/dL (Neg-Trace)
[2024-05-08 14:45] LABS: Bacteria Urine None Seen (None Seen); Hyaline Casts Urine 0-2 /LPF (0-2); RBC Urine 0-2 /HPF (0-2); Squamous Epithelial Cell Urine 0-2 /HPF (0-2); WBC Urine 0-5 /HPF (0-5)
--- NOTE | 2024-05-08 14:51 | PHA.MEDREC ---
Addendum entered by Lynn Doshi [facility] 05/08/24 15:43: Patient takes metoprolol 50 mg (1 tablet) three times a day, NOT 150 mg 3 times a day. This was verified with patient and with doctor's office Original Note: Pharmacy Consult ? Medication Reconciliation Pharmacy has completed the medication reconciliation. Spoke with patient and she confirmed her medications. She confirmed she is taking the Bumetadine 1mg tab as needed for fluid retention. Patient confirmed Eliquis 2.5mg tab and confirmed she takes it twice a day. 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 She confirmed she is taking the Metoprolol 50mg tab and confirmed she takes 3 tabs (150mg) three times a day and the patient states her Dr is aware of the change. She states she is still taking the Spironolactone 25mg tab and states she cuts it in half and takes 12.5mg daily; there were no claims for that and when I asked where she fills it she stated [facility] in [place]. I called and spoke with [facility] about the Spiron[facility]actone and they confirmed they have no fill history of that at their facility. The patient confirmed she took her medications this morning
--- NOTE | 2024-05-08 15:24 | PM.IMHP ---
History of Present Illness Date of Service: 05/08/24 Attending physician on admission: Chiki Toure Chief Complaint: Chest pain Pt is a 74-year-old female with a PMH significant for?CAD s/p stenting 2019, hx of DVT with pulmonary embolism 2017 on Eliquis, HTN, HLD, CKD 3, chronic anemia requiring transfusions in the past, diet-controlled diabetes type 2, osteoarthritis, and chronic lower leg edema who presents to the ED with?chest pain and dizziness since this morning. Pt reports when she woke up this morning she ?did not feel normal?. Reports experienced central, substernal, upper chest pain she describes as a burning sensation. Nonradiating, worse with exertion. Also experienced associated SOB, difficulty breathing, increasing tiredness and fatigue. Denies any nausea, vomiting, cough. Stool has been regular and brown-colored. Denies melena or hematochezia. Pt states has a long hx of chronic anemia requiring transfusions [place] [facility] [place] as well as in [place] in 2019. Reports a positive Cologuard test 3-4 years ago but did not follow-up with colonoscopy due to transportation issues. Pt recently established with Dr. Steinberg and Gastroenterology with planned outpatient colonoscopy in June. Pt also notes has osteoarthritis in right knee and reports lower leg edema secondary to cortisone and gel injections, as well as recent prednisone use. Pt also reports recent unintentional weight loss of around 25 lb. Pt denies abdominal pain. In the ED pt was hypertensive up to 165/64, vitals otherwise stable and WNL. Labs were significant for H&H 5.2/18.9, initial troponin 24.0, BNP 368, and albumin 3.0 no leukocytosis. No significant electrolyte abnormalities. Creatinine 2.27, around baseline. Hepatic function WNL. TSH WNL. Of note, in the ED pt refused rectal examination to test stool for occult blood. Tested negative for flu, COVID, RSV. UA negative for UTI. CXR showed cardiomegaly with clear lungs. EKG demonstrated normal sinus rhythm with sinus arrhythmia, but no acute ischemic changes from prior. Pt was transfused 1 unit PRBCs in the ED. Pt will be admitted to the hospital for treatment and further evaluation of acute symptomatic blood loss anemia concerning for GI bleed. Review of Systems Review of Systems: Negative except for that which is stated in the HPI. PMFSH Medical History Chronic kidney disease Anemia in chronic kidney disease Surgical History History of partial hysterectomy Social History Alcohol intake: never Patient Tobacco Use Status: Never used Tobacco Smoked in Last 30 Days: No Use of substances other than those prescribed or required for medical reasons: No Advance Directives: No Advance Directives Information Provided: Yes Do you have a plan to hurt others: No Plan Meds Allergies Allergy/AdvReac Type Severity Reaction Status Date / Time amoxicillin Allergy Unknown Unknown Verified 05/08/24 12:53 hydrochlorothiazide Allergy Unknown Unknown Verified 05/08/24 12:53 codiene Allergy Intermediate Nausea Uncoded 05/08/24 12:53 Chase inhibitors Allergy Unknown Unknown Uncoded 05/08/24 12:53 latex Allergy Unknown rash Uncoded 05/08/24 12:53 Active Medications: Current Medications Acetaminophen (Acetaminophen 325 Mg Tablet) 650 mg PO Q6H PRN PRN Reason: Pain, Mild 1-3,fever,headache Ascorbic Acid (Ascorbic Acid 500 Mg Tablet) 1,000 mg PO BEDTIME MEHDI Bumetanide (Bumetanide 1 Mg Tablet) 1 mg PO DAILY PRN; Protocol PRN Reason: Fluid Retention Calcium Carbonate (Calcium Carbonate 750 Mg Tab.Chew) 750 mg PO Q4H PRN PRN Reason: Heartburn Clonidine HCl (Clonidine Hcl 0.1 Mg Tablet) 0.1 mg PO TID MEHDI; Protocol Isosorbide Mononitrate (Isosorbide Mononitrate 30 Mg Tab.Er.24h) 30 mg PO TID MEHDI; Protocol Magnesium Hydroxide (Milk Of Magnesia 30 Ml Oral.Susp) 30 ml PO DAILY PRN PRN Reason: Constipation Melatonin (Melatonin 3 Mg Tablet) 6 mg PO BEDTIME PRN PRN Reason: Insomnia Metoprolol Tartrate (Metoprolol Tartrate 50 Mg Tablet) 150 mg PO TID MEHDI; Protocol Non-Formulary Medication (Mecobalamin (Vitamin B12)) 1,000 mcg PO DAILY MEHDI Ondansetron HCl (Ondansetron Hcl 4 Mg/2 Ml Vial) 4 mg IVPUSH Q8H PRN PRN Reason: Nausea and Vomiting Pantoprazole Sodium (Pantoprazole Sodium 40 Mg/10 Ml Vial) 40 mg IVPUSH BID@0630,1630 [facility] Sodium Chloride (0.9 % Sodium Chloride Flush 3 Ml Syringe) 3 ml IVFLUSH QSHIFT [facility] Spironolactone (Spironolactone 25 Mg Tablet) 12.5 mg PO DAILY MEHDI; Protocol Vitamin D (Cholecalciferol (Vitamin D3) 10 Mcg Tablet) 10 mcg PO DAILY [facility] Home Medications ?Medication ?Instructions ?Recorded ?Confirmed ?Last Taken ?Type apixaban 2.5 mg tablet (Eliquis) 2.5 mg PO BID 01/30/23 05/08/24 05/08/24 History spironolactone 25 mg tablet 12.5 mg PO DAILY 04/04/23 05/08/24 05/08/24 History ascorbate calcium (vitamin C) 500 1 g PO BEDTIME 02/27/24 05/08/24 05/08/24 History mg tablet cholecalciferol (vitamin D3) 10 10 mcg PO DAILY 02/27/24 05/08/24 05/08/24 History mcg (400 unit) capsule mecobalamin (vitamin B12) 1,000 1,000 mcg PO DAILY 02/27/24 05/08/24 05/08/24 History mcg chewable tablet acetaminophen 500 mg tablet 1,500 mg PO DAILY PRN Pain 05/08/24 05/08/24 Unknown History aspirin 325 mg tablet 325 - 650 mg PO DAILY PRN Pain 05/08/24 05/08/24 Unknown History bumetanide 1 mg tablet 1 mg PO DAILY PRN Fluid Retention 05/08/24 05/08/24 Unknown History clonidine HCl 0.1 mg tablet 0.1 mg PO TID 05/08/24 05/08/24 05/08/24 History metoprolol tartrate 50 mg tablet 50 mg PO TID 05/08/24 05/08/24 05/08/24 History Physical Exam Vital Signs and Narrative: Vital Signs: Last Vital Signs Temp 98.6 F 05/08/24 14:14 Pulse 75 05/08/24 14:14 Resp 19 05/08/24 14:14 BP 164/50 H 05/08/24 14:14 Pulse Ox 99 05/08/24 14:14 O2 Del Method Room Air 05/08/24 14:14 BMI result Body Mass Index 27.2 Constitutional: Alert, in no acute distress. Mental Status: Oriented to person, place and time. Eyes: Pupils are equal, round, and reactive to light. Ear, Nose, and Throat: Oropharynx clear, mucous membranes moist. Ears and nose without deformities. Trachea midline. Respiratory: Clear to auscultation bilaterally. No wheezing, rales, or rhonchi. Cardiovascular: S1, S2 regular. No murmurs, rubs, or gallops. Gastrointestinal: Abdomen soft, non-tender, non-distended. Normal bowel sounds. Neurologic: Cranial nerves II-XII are grossly intact bilaterally. No focal neurological deficits. Moves all extremities spontaneously. Skin: Warm, dry. Extremities: 2+ bilateral pitting edema of lower extremities. Right ankle >left ankle. Psychiatric: Normal mood and affect. Results Labs 05/08/24 12:59 05/08/24 12:59 Labs: Laboratory Results - last 24 hr 05/08/24 05/08/24 12:59 14:35 MCV 85.9 MCH 23.6 L MCHC 27.5 L RDW 20.6 H Plt Count 397 MPV 9.3 L Immature Gran % (Auto) 0.6 H Neut % (Auto) 73.6 H Lymph % (Auto) 13.8 L [place] % (Auto) 10.7 Eos % (Auto) 0.8 Baso % (Auto) 0.5 Lymph # (Auto) 0.9 L [place] # (Auto) 0.7 Eos # (Auto) 0.1 Baso # (Auto) 0.0 Abs Immat Gran (auto) 0.04 H Absolute Neuts (auto) 4.9 Absolute Nucleated RBC 0.040 H Nucleated RBC % (auto) 0.6 H Absolute Retic 0.057 Percent Retic 2.6 H Immature Retic Fraction 40.4 H Retic Hgb Equivalent 18.8 L PT 15.9 H INR 1.4 H Anion Gap 12 Estim Creat Clear Calc 24.7 Estimated GFR 21 Random Glucose 125 H Calcium 8.9 D Magnesium 2.7 H Total Bilirubin 0.3 AST 16 ALT 8 Alkaline Phosphatase 107 B-Natriuretic Peptide 368 H Total Protein 6.9 Albumin 3.0 L TSH 1.39 Urine Color Yellow Urine Appearance Clear Urine pH 6.0 Ur Specific [place] 1.015 Urine Protein 300 (3+) H Urine Glucose (UA) Negative Urine Ketones Negative Urine Blood Negative Urine Nitrite Negative Ur Leukocyte Esterase Negative Urine RBC 0-2 Urine WBC 0-5 Ur Squamous Epith Cells 0-2 Urine Bacteria None Seen Hyaline Casts 0-2 Influenza Type A (PCR) NEGATIVE Influenza Type B (PCR) NEGATIVE RSV RNA Qual (PCR) NEGATIVE SARS-CoV-2 RNA (RT-PCR) NEGATIVE Blood Type B Positive Antibody Screen POSITIVE Antibody Identification Anti-K Crossmatch (AHG) See Detail Blood Bank Comment Technical Imaging Radiologist's Impressions: Impressions Chest X-Ray 05/08/24 12:32 IMPRESSION: Cardiomegaly. The lungs are clear. Electronically signed by: Raphael Holt MD 05/08/2024 01:21 PM EDT RP Assessment and Plan (1) Acute on chronic anemia: Status: Acute Plan Pt is a 74-year-old female with a PMH significant for?CAD s/p stenting 2018, hx of DVT with pulmonary embolism 2017 on Eliquis, HTN, HLD, CKD 3, chronic anemia requiring transfusions in the past, diet-controlled diabetes type 2, osteoarthritis, and chronic lower leg edema who presents to the ED with?chest pain and dizziness since this morning. Pt will be admitted to the hospital for treatment and further evaluation of acute symptomatic blood loss anemia concerning for GI bleed. Acute on chronic symptomatic blood loss anemia H&H 5.2/18.9 at time of presentation Pt with substernal chest pain, dizziness, SOB, fatigue Concerning for GI bleed vs colon cancer Positive Cologuard 3-4 years ago, no colonoscopy follow up Pt with long hx of anemia requiring transfusions since at least 2007 Pt transfused 1 unit PRBCs in the ED Will transfuse additional unit PRBC Hold Eliquis Protonix IV bid GI consult NPO after midnight Sunday EGD and colonoscopy scheduled for Friday 05/12 Follow CBC Elevated troponins Initial troponin 24.0 with repeat with delta at 83.9 Pt with substernal burning, nonradiating chest pain EKG without ischemic changes Caridology consult Monitor on telemetry Trend troponins Abnormal echocardiogram Echo on 02/08/2024 showed basal inferior and basal inferolateral segment hypokinesis Pt will need cardiology clearance prior to EGD and colonoscopy Hx of DVT and PE Hold Eliquis HTN Continue clonidine, metoprolol Chronic lower leg edema Continue loperamide, spironolactone CAD Hold aspirin Continue isosorbide mononitrate Full Code Attending:?Dr. Toure DVT Prophylaxis: Pneumatic compression due to acute anemia Pt will require a hospitalization of at least two nights for treatment of?acute symptomatic blood loss anemia concerning for GI bleed. Pt will require hospital level care for close monitoring of labs, cardiac function, transfusion as necessary, and specialist consult with GI for EGD and colonoscopy. Quality Stroke Does the patient have a stroke diagnosis?: No VTE Prior VTE?: No VTE Risk Level:: Medical - moderate - high VTE Device Contraindication: N/A - Device Ordered VTE Drug Contraindication: Treatment Not Indicated
[2024-05-08 16:02] LABS: Troponin-I High Sensitivity 83.9 ng/L (<3.5-17.0)
[2024-05-08] MEDS: Pantoprazole Sodium 40 MG/10 ML VIAL IVPUSH (18:04)
--- NOTE | 2024-05-08 19:27 | PC.NURSE ---
pt is receiving her 2nd unit of blood products, pt bends her arm frequently and pump stops. pt teaching on keeping her left arm straight and pt understands. pt denies any reaction to the blood products at this time. pt sitting up with computor in her lab. no s/s of distress.
[2024-05-08] MEDS: Isosorbide Mononitrate 30 MG TAB.ER.24H PO (20:48)
[2024-05-08] MEDS: Ascorbic Acid 500 MG TABLET 1000 MG PO (20:49)
[2024-05-08] MEDS: Metoprolol Tartrate 50 MG TABLET PO (20:49)
[2024-05-08] MEDS: cloNIDine HCL 0.1 MG TABLET PO (20:50)
--- NOTE | 2024-05-08 22:17 | PC.NURSE ---
at 2158 pt 2nd unit of blood products infused, no s/s of reaction. pt states she has no pain unless she moves. vitals stable needs and call mora at bedside. pt is alert and oriented. no s/s of distress noted.
--- NOTE | 2024-05-08 23:35 | PC.NURSE ---
pt awake asking for harrison wrap for her ankles, pain medication for her legs, and she is asking for a anti inflammatory medication provider made aware pt is also a difficult stick. plan is for a CT.
[2024-05-09] VITALS (14 sets, daily range): BP systolic 156–199; BP diastolic 60–94; PULSE 66–92; RESP 15–18; TEMP 36.7–37.5; O2SAT 97–100; BMI 26.2
--- NOTE | 2024-05-09 00:03 | MHC.EDTECH ---
assumed care of pt @2300, at this time pt is sitting up in chair for comfort, watching television , call light placed within reach for safety
--- NOTE | 2024-05-09 00:08 | MHC.EDTECH ---
ray removed from room due to pt being NPO after midnight
[2024-05-09] MEDS: traMADoL HCL 50 MG TABLET 25 MG PO (00:28)
[2024-05-09 05:14] LABS: Hematocrit 24.3 % (37.0-47.0); Hemoglobin 7.2 g/dl (12.0-16.0); Mean Corpuscular HGB Conc 29.6 g/dl (31.0-35.0); Mean Corpuscular Hemoglobin 25.4 pg (27.0-33.0); Mean Corpuscular Volume 85.6 fL (80.0-98.0); Mean Platelet Volume 9.6 fL (9.4-12.3); Platelet Count 343 X10*3/uL (160-400); Red Blood Count 2.84 X10*6/uL (4.20-5.50); Red Cell Distribution Width 17.9 % (11.0-16.0); White Blood Count 6.1 X10*3/uL (4.8-10.8)
[2024-05-09 05:20] LABS: Anion Gap 12 (12-20); Blood Urea Nitrogen 48 mg/dL (9-16); Calcium 8.7 mg/dL (8.4-10.2); Carbon Dioxide 22 mmol/L (22-29); Chloride 114 mmol/L (96-108); Creatinine Clr Calc Pharmacy 25.5; Estimated Glomerular Filt Rate 22; Glucose Random 120 mg/dL (60-115); Potassium 4.9 mmol/L (3.3-5.1); Sodium 143 mmol/L (135-145)
[2024-05-09] MEDS: Pantoprazole Sodium 40 MG/10 ML VIAL IVPUSH ×2 (06:24→16:03)
[2024-05-09] MEDS: Metoprolol Tartrate 50 MG TABLET PO ×3 (07:59→20:31)
[2024-05-09] MEDS: Isosorbide Mononitrate 30 MG TAB.ER.24H PO ×3 (07:59→20:31)
[2024-05-09] MEDS: Cyanocobalamin (Vitamin B-12) 1,000 MCG TABLET 1000 MCG PO (07:59)
[2024-05-09] MEDS: cloNIDine HCL 0.1 MG TABLET PO ×3 (07:59→20:31)
[2024-05-09] MEDS: 0.9 % Sodium Chloride Flush 3 ML SYRINGE IVFLUSH ×2 (08:00→14:32)
[2024-05-09] MEDS: Spironolactone 25 MG TABLET 12.5 MG PO (08:00)
--- NOTE | 2024-05-09 08:00 | PC.NURSE ---
ASSUMED CARE OF THIS PT, HAS BEEN STANDING IN HER ROOM WITH HER WALKER, AMBULATING STEADILY INDEPENDENTLY, WITH NO SOB, CP. ENDORSES ONLY CHRONIC BILAT LEG PAIN R/T OA. PIV PATENT, SECOND PLACED A PRECAUTION. PT IS A&OX4, IN NAD, HYPERTENSIVE AND MEDICATED, WILL RECHECK. AWARE OF PLAN FOR ADMISSION.
--- NOTE | 2024-05-09 08:24 | PM.GICN ---
History of Present Illness Data of Consult Service Date: 05/09/24 Requesting physician: Jamie Epperson Primary Care Provider: None Physician HPI Reason for consult: Anemia This is a 74-year-old female with past medical history of coronary artery disease s/p NEETU 2018, history of thyrotoxicosis 2018, history of PE and DVT unprovoked, on Eliquis, CKD stage 4, who is admitted for acute on chronic anemia and unintentional weight loss. Pt recently established care with [facility] as outpatient. See documentation 02/27/24 for details. Pt presented to ER yest for worsening shortness of breath and weakness. Also c/o significant lower extremity pain. Found to have Hb 5.2. This is in the absence of overt GI bleeding. Pt received 2u PRBC overnight and admitted for further management. Seen at bedside in the presence of social media strategist Moni. Pt aware EGD/colo booked for Sunday tentatively after eliquis and full dose ASA washout but remains hesitant to stay in the hospital till then. 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 Review of Systems Review of Systems: Yes all other systems are reviewed and are negative [facility] Past Medical History Medical History Chronic kidney disease Anemia in chronic kidney disease Surgical History Surgical History History of partial hysterectomy Social History Social History Household Members: Family Housing: Apartment Do you presently have visiting nurse or other home services: No Alcohol intake: never Patient Tobacco Use Status: Former Tobacco user Smoked in Last 30 Days: No Use of substances other than those prescribed or required for medical reasons: No Currently Displaying Signs/Symptoms of Drug Intoxication Withdrawal: No Any prior treatment program specific to substance use: No Have you been hit, kicked, punched, or otherwise hurt by someone within the past year? If so, by whom?: No Do you feel safe in your current relationship?: No Current Relationship Is there a partner from a previous relationship who is making you feel unsafe now?: No Are you made to feel afraid or neglected: No Advance Directives: No Advance Directives Information Provided: Yes Do you have a plan to hurt others: No Plan Recently lost weight without trying: No How much weight loss: Not applicable Eating poorly because of decreased appetite: No Nutrition screen score: 0 Nutrition Risks: No Nutritional Risk Patient : No service: No Meds Allergies Allergy/AdvReac Type Severity Reaction Status Date / Time amoxicillin Allergy Unknown Unknown Verified 05/08/24 12:53 hydrochlorothiazide Allergy Unknown Unknown Verified 05/08/24 12:53 morphine Allergy Unknown Nausea Verified 05/09/24 00:00 codiene Allergy Intermediate Nausea Uncoded 05/08/24 12:53 Chase inhibitors Allergy Unknown Unknown Uncoded 05/08/24 12:53 latex Allergy Unknown rash Uncoded 05/08/24 12:53 Active Medications: Current Medications Acetaminophen (Acetaminophen 325 Mg Tablet) 650 mg PO Q6H PRN PRN Reason: Pain, Mild 1-3,fever,headache Ascorbic Acid (Ascorbic Acid 500 Mg Tablet) 1,000 mg PO BEDTIME MEHDI Last Admin: 05/08/24 20:49 Dose: 1,000 mg Bumetanide (Bumetanide 1 Mg Tablet) 1 mg PO DAILY PRN; Protocol PRN Reason: Fluid Retention Calcium Carbonate (Calcium Carbonate 750 Mg Tab.Chew) 750 mg PO Q4H PRN PRN Reason: Heartburn Clonidine HCl (Clonidine Hcl 0.1 Mg Tablet) 0.1 mg PO TID MEHDI; Protocol Last Admin: 05/09/24 07:59 Dose: 0.1 mg Cyanocobalamin (Cyanocobalamin (Vitamin B-12) 1,000 Mcg Tablet) 1,000 mcg PO DAILY MEHDI Last Admin: 05/09/24 07:59 Dose: 1,000 mcg Isosorbide Mononitrate (Isosorbide Mononitrate 30 Mg Tab.Er.24h) 30 mg PO TID EMHDI; Protocol Last Admin: 05/09/24 07:59 Dose: 30 mg Magnesium Hydroxide (Milk Of Magnesia 30 Ml Oral.Susp) 30 ml PO DAILY PRN PRN Reason: Constipation Melatonin (Melatonin 3 Mg Tablet) 6 mg PO BEDTIME PRN PRN Reason: Insomnia Metoprolol Tartrate (Metoprolol Tartrate 50 Mg Tablet) 50 mg PO TID MEHDI; Protocol Last Admin: 05/09/24 07:59 Dose: 50 mg Ondansetron HCl (Ondansetron Hcl 4 Mg/2 Ml Vial) 4 mg IVPUSH Q8H PRN PRN Reason: Nausea and Vomiting Pantoprazole Sodium (Pantoprazole Sodium 40 Mg/10 Ml Vial) 40 mg IVPUSH BID@0630,1630 [facility] Last Admin: 05/09/24 06:24 Dose: 40 mg Sodium Chloride (0.9 % Sodium Chloride Flush 3 Ml Syringe) 3 ml IVFLUSH QSHIFT [facility] Last Admin: 05/09/24 08:00 Dose: 3 ml Spironolactone (Spironolactone 25 Mg Tablet) 12.5 mg PO DAILY [facility]; Protocol Last Admin: 05/09/24 08:00 Dose: 12.5 mg Vitamin D (Cholecalciferol (Vitamin D3) 10 Mcg Tablet) 10 mcg PO DAILY [facility] Last Admin: 05/09/24 08:02 Dose: Not Given Home Medications ?Medication ?Instructions ?Recorded ?Confirmed ?Last Taken ?Type apixaban 2.5 mg tablet (Eliquis) 2.5 mg PO BID 01/30/23 05/08/24 05/08/24 History spironolactone 25 mg tablet 12.5 mg PO DAILY 04/04/23 05/08/24 05/08/24 History ascorbate calcium (vitamin C) 500 1 g PO BEDTIME 02/27/24 05/08/24 05/08/24 History mg tablet cholecalciferol (vitamin D3) 10 10 mcg PO DAILY 02/27/24 05/08/24 05/08/24 History mcg (400 unit) capsule mecobalamin (vitamin B12) 1,000 1,000 mcg PO DAILY 02/27/24 05/08/24 05/08/24 History mcg chewable tablet acetaminophen 500 mg tablet 1,500 mg PO DAILY PRN Pain 05/08/24 05/08/24 Unknown History aspirin 325 mg tablet 325 - 650 mg PO DAILY PRN Pain 05/08/24 05/08/24 Unknown History bumetanide 1 mg tablet 1 mg PO DAILY PRN Fluid Retention 05/08/24 05/08/24 Unknown History clonidine HCl 0.1 mg tablet 0.1 mg PO TID 05/08/24 05/08/24 05/08/24 History metoprolol tartrate 50 mg tablet 50 mg PO TID 05/08/24 05/08/24 05/08/24 History Physical Exam Vital Signs: Vital Signs: Last Vital Signs Temp 98.6 F 05/09/24 06:01 Pulse 92 05/09/24 07:56 Resp 16 05/09/24 07:56 BP 194/78 H 05/09/24 07:59 Pulse Ox 99 05/09/24 07:56 O2 Del Method Room Air 05/09/24 07:56 BMI result Body Mass Index 27.2 Appears younger than stated age pale appearing bitemporal wasting abd soft, nontender DAISY + Results Labs 05/09/24 04:25 05/09/24 04:25 Labs: Short CBC 05/08/24 05/09/24 Range/Units 12:59 04:25 WBC 6.6 6.1 (4.8-10.8) X10*3/uL Hgb 5.2 L* 7.2 L D (12.0-16.0) g/dl Hct 18.9 L* 24.3 L D (37.0-47.0) % Plt Count 397 343 (160-400) X10*3/uL BMP 05/08/24 05/09/24 12:59 04:25 Sodium 142 143 Potassium 4.9 4.9 Chloride 112 H 114 H Carbon Dioxide 23 22 BUN 49 H 48 H Creatinine 2.27 H 2.19 H Calcium 8.9 D 8.7 Liver Function 05/08/24 Range/Units 12:59 Total Bilirubin 0.3 (0.0-1.0) mg/dL AST 16 (5-31) U/L ALT 8 (0-31) U/L Alkaline Phosphatase 107 (39-117) U/L Albumin 3.0 L (3.5-5.0) g/dL Urine 05/08/24 Range/Units 14:35 Urine Color Yellow Urine Appearance Clear Urine pH 6.0 (5.0-9.0) Ur Specific [place] 1.015 (1.005-1.025) Urine Protein 300 (3+) H (Neg-Trace) mg/dL Urine Glucose (UA) Negative (Negative) mg/dL Assessment and Plan (1) Acute on chronic anemia: Status: Acute (2) Iron deficiency: Status: Acute (3) Anemia in chronic kidney disease: Qualifiers: Chronic kidney disease stage: stage 3 (moderate) Chronic kidney disease stage 3 subtype: stage 3b (GFR 30-44) Qualified Code(s): N18.32 - Chronic kidney disease, stage 3b; D63.1 - Anemia in chronic kidney disease Status: Acute Plan As previously discussed with the pt, recommend urgent EGD/colo for further evaluation for rapidly declining blood counts in the setting of vague abd discomfort, unintentional weight loss and + positive cologuard 3-4 years ago. Plan: - EGD/colo booked tentatively for Sunday - Kindly request cardiology eval for intermittent chest pain and WMA on echo 01/2024 - Hold full dose ASA and eliquis - If needed, IV heparin is ok for anticoagulation to mitigate high VTE risk (to not be started earlier than 05/11) - If pt needs to leave over the weekend, she is aware to cont to hold aspirin and eliquis. CLD and PEG prep sunday. Kindly provide her with prescription. She is also aware to arrange for reliable transport for Sunday in that case. Thank you for allowing me to participate in her care. Please do not hesitate to reach out for any questions or concerns. Procedures Date of Service Date of Service: 05/09/24
--- NOTE | 2024-05-09 11:28 | MHC.CM.PN ---
CM ATTMEPTED TO MEET W/PT HOWEVER PT HAVING VITALS TAKEN, CM TO REVISIT.
--- NOTE | 2024-05-09 11:36 | P.CONCA_ITS ---
History of Present Illness History of Present Illness Date of Service: 05/09/24 Requesting physician: John Spence Chief complaint: Anemia, chest pain, elevated BP Narrative: [age] year female with background history of coronary disease with PCI done in [place]. She also has anemia related to chronic disease. She has CKD. She is presenting with a burning chest discomfort and dizziness and was noticed to be anemic. She is significantly hypertensive. She is saying her blood pressures were well controlled at home. Due to anemia she may need endoscopy and we have been asked to assess her perioperative risk. She has mildly elevated troponin level which is quite well explained by high blood pressure anemia. This is type 2 very mild injury. Currently she is asymptomatic. [facility] Past Medical History Medical History Chronic kidney disease Anemia in chronic kidney disease Surgical History Surgical History History of partial hysterectomy Social History Social History Household Members: Family Housing: Apartment Do you presently have visiting nurse or other home services: No Alcohol intake: never Patient Tobacco Use Status: Former Tobacco user Smoked in Last 30 Days: No Use of substances other than those prescribed or required for medical reasons: No Currently Displaying Signs/Symptoms of Drug Intoxication Withdrawal: No Any prior treatment program specific to substance use: No Have you been hit, kicked, punched, or otherwise hurt by someone within the past year? If so, by whom?: No Do you feel safe in your current relationship?: No Current Relationship Is there a partner from a previous relationship who is making you feel unsafe now?: No Are you made to feel afraid or neglected: No Advance Directives: No Advance Directives Information Provided: Yes Do you have a plan to hurt others: No Plan Recently lost weight without trying: No How much weight loss: Not applicable Eating poorly because of decreased appetite: No Nutrition screen score: 0 Nutrition Risks: No Nutritional Risk Patient : No Meds Allergies Allergy/AdvReac Type Severity Reaction Status Date / Time amoxicillin Allergy Unknown Unknown Verified 05/08/24 12:53 hydrochlorothiazide Allergy Unknown Unknown Verified 05/08/24 12:53 morphine Allergy Unknown Nausea Verified 05/09/24 00:00 codiene Allergy Intermediate Nausea Uncoded 03/20/25 12:53 Chase inhibitors Allergy Unknown Unknown Uncoded 05/08/24 12:53 latex Allergy Unknown rash Uncoded 05/08/24 12:53 Active Medications: Current Medications Acetaminophen (Acetaminophen 325 Mg Tablet) 650 mg PO Q6H PRN PRN Reason: Pain, Mild 1-3,fever,headache Apixaban (Apixaban 5 Mg Tablet) 5 mg PO BID [facility] Ascorbic Acid (Ascorbic Acid 500 Mg Tablet) 1,000 mg PO BEDTIME [facility] Last Admin: 05/08/24 20:49 Dose: 1,000 mg Bumetanide (Bumetanide 1 Mg Tablet) 1 mg PO DAILY PRN; Protocol PRN Reason: Fluid Retention Calcium Carbonate (Calcium Carbonate 750 Mg Tab.Chew) 750 mg PO Q4H PRN PRN Reason: Heartburn Clonidine HCl (Clonidine Hcl 0.1 Mg Tablet) 0.1 mg PO TID [facility]; Protocol Last Admin: 05/09/24 07:59 Dose: 0.1 mg Cyanocobalamin (Cyanocobalamin (Vitamin B-12) 1,000 Mcg Tablet) 1,000 mcg PO DAILY [facility] Last Admin: 05/09/24 07:59 Dose: 1,000 mcg Isosorbide Mononitrate (Isosorbide Mononitrate 30 Mg Tab.Er.24h) 30 mg PO TID [facility]; Protocol Last Admin: 05/09/24 07:59 Dose: 30 mg Magnesium Hydroxide (Milk Of Magnesia 30 Ml Oral.Susp) 30 ml PO DAILY PRN PRN Reason: Constipation Melatonin (Melatonin 3 Mg Tablet) 6 mg PO BEDTIME PRN PRN Reason: Insomnia Metoprolol Tartrate (Metoprolol Tartrate 50 Mg Tablet) 50 mg PO TID [facility]; Protocol Last Admin: 05/09/24 07:59 Dose: 50 mg Ondansetron HCl (Ondansetron Hcl 4 Mg/2 Ml Vial) 4 mg IVPUSH Q8H PRN PRN Reason: Nausea and Vomiting Pantoprazole Sodium (Pantoprazole Sodium 40 Mg/10 Ml Vial) 40 mg IVPUSH BID@0630,1630 [facility] Last Admin: 05/09/24 06:24 Dose: 40 mg Sodium Chloride (0.9 % Sodium Chloride Flush 3 Ml Syringe) 3 ml IVFLUSH QSHIFT [facility] Last Admin: 05/09/24 08:00 Dose: 3 ml Spironolactone (Spironolactone 25 Mg Tablet) 12.5 mg PO DAILY [facility]; Protocol Last Admin: 05/09/24 08:00 Dose: 12.5 mg Vitamin D (Cholecalciferol (Vitamin D3) 10 Mcg Tablet) 10 mcg PO DAILY [facility] Last Admin: 05/09/24 08:02 Dose: Not Given Home Medications ?Medication ?Instructions ?Recorded ?Confirmed ?Last Taken ?Type apixaban 2.5 mg tablet (Eliquis) 2.5 mg PO BID 01/30/23 05/08/24 05/08/24 History spironolactone 25 mg tablet 12.5 mg PO DAILY 04/04/23 05/08/24 05/08/24 History ascorbate calcium (vitamin C) 500 1 g PO BEDTIME 02/27/24 05/08/24 05/08/24 History mg tablet cholecalciferol (vitamin D3) 10 10 mcg PO DAILY 02/27/24 05/08/24 05/08/24 History mcg (400 unit) capsule mecobalamin (vitamin B12) 1,000 1,000 mcg PO DAILY 02/27/24 05/08/24 05/08/24 History mcg chewable tablet acetaminophen 500 mg tablet 1,500 mg PO DAILY PRN Pain 05/08/24 05/08/24 Unknown History aspirin 325 mg tablet 325 - 650 mg PO DAILY PRN Pain 05/08/24 05/08/24 Unknown History bumetanide 1 mg tablet 1 mg PO DAILY PRN Fluid Retention 05/08/24 05/08/24 Unknown History clonidine HCl 0.1 mg tablet 0.1 mg PO TID 05/08/24 05/08/24 05/08/24 History metoprolol tartrate 50 mg tablet 50 mg PO TID 05/08/24 05/08/24 05/08/24 History Physical Exam 2 Vital Signs: Vital Signs: Last Vital Signs Temp 99.2 F 05/09/24 11:21 Pulse 74 05/09/24 11:21 Resp 18 05/09/24 11:21 BP 190/81 H 05/09/24 11:21 Pulse Ox 97 05/09/24 09:01 O2 Del Method Room Air 05/09/24 09:01 BMI result Body Mass Index 26.2 GENERAL APPEARANCE: in no acute distress, pleasant. NECK: no jugular venous distention. SKIN: no suspicious lesions, warm and dry. HEART: no murmurs, regular rate and rhythm. LUNGS: clear to auscultation bilaterally. ABDOMEN: soft, nontender. EXTREMITIES: no edema. PERIPHERAL PULSES: equal. NEUROLOGIC: No gross deficits, AAO X 3 Objective Labs and Meds 05/09/24 04:25 05/09/24 04:25 Lab results: Laboratory Results - last 24 hr 05/08/24 05/08/24 05/08/24 12:59 14:35 15:16 WBC 6.6 RBC 2.20 L Hgb 5.2 L* Hct 18.9 L* MCV 85.9 MCH 23.6 L MCHC 27.5 L RDW 20.6 H Plt Count 397 MPV 9.3 L Immature Gran % (Auto) 0.6 H Neut % (Auto) 73.6 H Lymph % (Auto) 13.8 L Carbon % (Auto) 10.7 Eos % (Auto) 0.8 Baso % (Auto) 0.5 Lymph # (Auto) 0.9 L Carbon # (Auto) 0.7 Eos # (Auto) 0.1 Baso # (Auto) 0.0 Abs Immat Gran (auto) 0.04 H Absolute Neuts (auto) 4.9 Absolute Nucleated RBC 0.040 H Nucleated RBC % (auto) 0.6 H Absolute Retic 0.057 Percent Retic 2.6 H Immature Retic Fraction 40.4 H Retic Hgb Equivalent 18.8 L PT 15.9 H INR 1.4 H Sodium 142 Potassium 4.9 Chloride 112 H Carbon Dioxide 23 Anion Gap 12 BUN 49 H Creatinine 2.27 H Estim Creat Clear Calc 24.7 Estimated GFR 21 Random Glucose 125 H Calcium 8.9 D Magnesium 2.7 H Total Bilirubin 0.3 AST 16 ALT 8 Alkaline Phosphatase 107 Troponin I High Sens 24.0 H 83.9 H* D B-Natriuretic Peptide 368 H Total Protein 6.9 Albumin 3.0 L TSH 1.39 Urine Color Yellow Urine Appearance Clear Urine pH 6.0 Ur Specific [place] 1.015 Urine Protein 300 (3+) H Urine Glucose (UA) Negative Urine Ketones Negative Urine Blood Negative Urine Nitrite Negative Ur Leukocyte Esterase Negative Urine RBC 0-2 Urine WBC 0-5 Ur Squamous Epith Cells 0-2 Urine Bacteria None Seen Hyaline Casts 0-2 Influenza Type A (PCR) NEGATIVE Influenza Type B (PCR) NEGATIVE RSV RNA Qual (PCR) NEGATIVE SARS-CoV-2 RNA (RT-PCR) NEGATIVE Blood Type B Positive Antibody Screen POSITIVE Antibody Identification Anti-K Crossmatch ([facility]) See Detail Blood Bank Comment Technical 05/09/24 04:25 WBC 6.1 RBC 2.84 L D Hgb 7.2 L D Hct 24.3 L D MCV 85.6 MCH 25.4 L MCHC 29.6 L RDW 17.9 H Plt Count 343 MPV 9.6 Immature Gran % (Auto) Neut % (Auto) Lymph % (Auto) Carbon % (Auto) Eos % (Auto) Baso % (Auto) Lymph # (Auto) Carbon # (Auto) Eos # (Auto) Baso # (Auto) Abs Immat Gran (auto) Absolute Neuts (auto) Absolute Nucleated RBC 0.000 Nucleated RBC % (auto) 0.0 Absolute Retic Percent Retic Immature Retic Fraction Retic Hgb Equivalent PT INR Sodium 143 Potassium 4.9 Chloride 114 H Carbon Dioxide 22 Anion Gap 12 BUN 48 H Creatinine 2.19 H Estim Creat Clear Calc 25.5 Estimated GFR 22 Random Glucose 120 H Calcium 8.7 Magnesium Total Bilirubin AST ALT Alkaline Phosphatase Troponin I High Sens B-Natriuretic Peptide Total Protein Albumin TSH Urine Color Urine Appearance Urine pH Ur Specific [place] Urine Protein Urine Glucose (UA) Urine Ketones Urine Blood Urine Nitrite Ur Leukocyte Esterase Urine RBC Urine WBC Ur Squamous Epith Cells Urine Bacteria Hyaline Casts Influenza Type A (PCR) Influenza Type B (PCR) RSV RNA Qual (PCR) SARS-CoV-2 RNA (RT-PCR) Blood Type Antibody Screen Antibody Identification Crossmatch ([facility]) Blood Bank Comment Imaging Radiologist's impression: Impressions Chest X-Ray 05/08/24 12:32 IMPRESSION: Cardiomegaly. The lungs are clear. Electronically signed by: Raphael Holt MD 05/08/2024 01:21 PM EDT Assessment and Plan (1) Acute on chronic anemia: Status: Acute (2) Chest discomfort: Status: Acute (3) Hypertension: Qualifiers: Hypertension type: primary hypertension Qualified Code(s): I10 - Essential (primary) hypertension Status: Acute (4) Preop cardiovascular exam: Status: Acute Plan Pleasant 74 year female presenting for dizziness and burning chest discomfort. She is noticed to be anemic and hypertensive. She takes aspirin 325 mg and Eliquis 2.5 mg twice a day. She previously had echocardiography which showed EF of 58% with basal inferior inferolateral hypokinesis. Mild mitral valve regurgitation was noted. ECG showing sinus rhythm with poor R-wave progression. QTC 402 milliseconds. Chest discomfort is atypical and likely related to anemia and significant hypertension. She definitely needs better blood pressure control. Resume home medications. Isosorbide mononitrate should be taken once a day rather than 3 times a day. The dose can be changed to 60 mg daily and can be made 90 mg if she tolerates it. Should not be 3 times a day though. Agree with holding aspirin. She is on Eliquis for previous pulmonary embolism in 2017. With anemia and potential procedure coming up Eliquis should be held too. If after resuming home medication blood pressure is still not controlled and can start her on hydralazine 25 mg 3 times a day. Intermediate risk for perioperative complications. Thank you for allowing me to participate in the care of your patient. Please feel free to contact me if you have any questions. Procedures Date of Service Date of Service: 05/09/24
--- NOTE | 2024-05-09 14:13 | MHC.CM.PN ---
EMR REVIEWED, PT W/ACUTE BLOOD LOSS ANEMIA, CM MET W/PT WHO IS PERSEVERATING ON DISCHARGING TO HER 99YO MOTHERS APT SHE TAKES CARE OF HER AND REPORTS SHE IS HOPING TO DO SO AFTER TRANSFUSION TODAY. PT REPORTS SHE HAS HER OWN APT AT ADDRESS LISTED HOWEVER HAS BEEN STAYING W/HER MOTHER SHE WAS NOT TAKING HER MEDS AND HAD A STROKE, PT REPORTS HER COMMUNICATIONS WRITER IS STAYING W/HER MOM NOW. PT REPORTS SHE IS INDEP, HAS BEEN USING HER MOTHERS ROLLATOR AND HER MOM IS USING A WC, PT DENIES ANY OTHER DME, NO HOME SERVICES HOWEVER PT REPORTS SHE WANTS A VNA AND A VNA THAT WILL SEE HER CHRONICALLY HOWEVER DOES NOT HAVE A PCP, PT PROVIDED W/[facility] PROVIDER PAMPHLET AND NAME OF NEW PROVIDER WHO IS A PA AND PT STATED, I WANT A DOCTOR PT INSTRUCTED TO CONTACT [facility] TO SEE WHAT PHYSICIAN IS ACCEPTING NEW PTS, PT ALSO REPORTING SHE WOULD LIKE A GERONTOLIGIST AND AWARE THERE ARE GERONTOLOGISTS IN [place]. PT EDUCATED ON AND DECLINES TO COMPLETE A HCP THIS ADMISSION.
[2024-05-09] MEDS: LORazepam 0.5 MG TABLET PO (14:28)
[2024-05-09] MEDS: Acetaminophen 325 MG TABLET 650 MG PO (14:29)
[2024-05-09] MEDS: Furosemide 20 MG/2 ML VIAL IVPUSH (14:29)
--- NOTE | 2024-05-09 14:51 | MHC.CM.PN ---
CM MET WITH PT WHO REPORTS ONGOING STRESS SHE STATES SHE IS THE CAREGIVER FOR HER 99 YEAR OLD MOTHER SHE SAYS SHE ALSO DEALS WITH CHRONIC KNEE PAIN AND SOMETIMES JUST FEELS OVERWHELMED SHE SAYS SHE DID MAKE A STATEMENT ABOUT WANTING TO END HER LIFE, BUT SHE DENIES ANY PLAN OR INTENT SHE SAYS SHE HASN'T HAD SI WITH A PLAN SINCE SHE WAS 43 YEARS OLD PT STATES SHE WOULD NEVER HARM HERSELF HER MOTHER ALREADY LOST TWO CHILDREN AND WOULD NEVER RECOVER, SHE ALSO NOTES THERE WOULD BE NO ONE TO CARE FOR HER MOTHER CM DISCUSSED THE IMPORTANCE OF SELF CARE AND PT STATES SHE UNDERSTANDS AND A REFERRAL WAS MADE FOR A THERAPIST PT STATES SHE HAS TO DC HOME THIS EVENING THERE IS NO ONE TO CARE FOR HER MOTHER OVERNIGHT OR THROUGH THE WEEKEND SHE SAYS SHE WILL PREP FOR THE PROCEDURE ON SUNDAY AND FIND A RIDE
--- NOTE | 2024-05-09 16:40 | P.PNIM_ITS ---
Subjective Subjective Date of Service: 05/09/24 Interval History: No acute issues since admission. Requesting to leave secondary to need to care for her elderly mother Review of Systems Denies chest pain Denies shortness of breath Denies nausea vomiting diarrhea Denies fever chills Physical Exam 2 Vital Signs: Vital Signs: Last Vital Signs Temp 99.2 F 05/09/24 15:01 Pulse 90 05/09/24 15:01 Resp 16 05/09/24 15:01 BP 199/94 H 05/09/24 15:01 Pulse Ox 97 05/09/24 09:01 O2 Del Method Room Air 05/09/24 09:01 BMI result Body Mass Index 26.2 Const: Other: Soft nontender nondistended normoactive bowel sounds Resp: Other: Clear to auscultation bilaterally no rales rhonchi or wheezes Cardio: Other: No S4; positive S1-S2; no S3 murmurs rubs or gallops GI: Other: Soft nontender nondistended normoactive bowel sounds Extrem: Other: No edema bilaterally Objective Data Active Medications Acetaminophen (Acetaminophen 325 Mg Tablet) 650 mg PO Q6H PRN PRN Reason: Pain, Mild 1-3,fever,headache Last Admin: 05/09/24 14:29 Dose: 650 mg Documented By: MARIA E Ascorbic Acid (Ascorbic Acid 500 Mg Tablet) 1,000 mg PO BEDTIME [facility] Last Admin: 05/08/24 20:49 Dose: 1,000 mg Documented By: PATRICIO Bumetanide (Bumetanide 1 Mg Tablet) 1 mg PO DAILY PRN; Protocol PRN Reason: Fluid Retention Calcium Carbonate (Calcium Carbonate 750 Mg Tab.Chew) 750 mg PO Q4H PRN PRN Reason: Heartburn Clonidine HCl (Clonidine Hcl 0.1 Mg Tablet) 0.1 mg PO TID [facility]; Protocol Last Admin: 05/09/24 14:31 Dose: 0.1 mg Documented By: MARIA E Cyanocobalamin (Cyanocobalamin (Vitamin B-12) 1,000 Mcg Tablet) 1,000 mcg PO DAILY [facility] Last Admin: 05/09/24 07:59 Dose: 1,000 mcg Documented By: CESJENAE Isosorbide Mononitrate (Isosorbide Mononitrate 30 Mg Tab.Er.24h) 30 mg PO TID [facility]; Protocol Last Admin: 05/09/24 14:31 Dose: 30 mg Documented By: MARIA E Lorazepam (Lorazepam 0.5 Mg Tablet) 0.5 mg PO Q4H PRN PRN Reason: Anxiety Last Admin: 05/09/24 14:28 Dose: 0.5 mg Documented By: MARIA E Magnesium Hydroxide (Milk Of Magnesia 30 Ml Oral.Susp) 30 ml PO DAILY PRN PRN Reason: Constipation Melatonin (Melatonin 3 Mg Tablet) 6 mg PO BEDTIME PRN PRN Reason: Insomnia Metoprolol Tartrate (Metoprolol Tartrate 50 Mg Tablet) 50 mg PO TID [facility]; Protocol Last Admin: 05/09/24 14:31 Dose: 50 mg Documented By: MARIA E Ondansetron HCl (Ondansetron Hcl 4 Mg/2 Ml Vial) 4 mg IVPUSH Q8H PRN PRN Reason: Nausea and Vomiting Pantoprazole Sodium (Pantoprazole Sodium 40 Mg/10 Ml Vial) 40 mg IVPUSH BID@0630,1630 [facility] Last Admin: 05/09/24 16:03 Dose: 40 mg Documented By: MARIA E Sodium Chloride (0.9 % Sodium Chloride Flush 3 Ml Syringe) 3 ml IVFLUSH QSHIFT [facility] Last Admin: 05/09/24 14:32 Dose: 3 ml Documented By: MARIA E Spironolactone (Spironolactone 25 Mg Tablet) 12.5 mg PO DAILY [facility]; Protocol Last Admin: 05/09/24 08:00 Dose: 12.5 mg Documented By: JUAN Vitamin D (Cholecalciferol (Vitamin D3) 10 Mcg Tablet) 10 mcg PO DAILY [facility] Last Admin: 05/09/24 08:02 Dose: Not Given Documented By: JUAN Non-Admin Reason: Med Not Available Labs 05/09/24 04:25 05/09/24 04:25 Labs: Laboratory Results - last 24 hr 05/08/24 05/09/24 12:59 04:25 MCV 85.6 MCH 25.4 L MCHC 29.6 L RDW 17.9 H Plt Count 343 MPV 9.6 Absolute Nucleated RBC 0.000 Nucleated RBC % (auto) 0.0 Anion Gap 12 Estim Creat Clear Calc 25.5 Estimated GFR 22 Random Glucose 120 H Calcium 8.7 Blood Type B Positive Antibody Screen POSITIVE Antibody Identification Anti-K Crossmatch ([facility]) See Detail Blood Bank Comment Technical Assessment and Plan (1) Acute on chronic anemia: Status: Acute Plan 74-year-old female with a PMH significant for?CAD s/p stenting 2018, hx of DVT with pulmonary embolism 2017 on Eliquis, HTN, HLD, CKD 3, chronic anemia requiring transfusions in the past, diet-controlled diabetes type 2, osteoarthritis, and chronic lower leg edema who presents to the ED with?chest pain and dizziness since this morning. Pt will be admitted to the hospital for treatment and further evaluation of acute symptomatic blood loss anemia concerning for GI bleed. 1.Acute on chronic symptomatic blood loss anemia -transfuse additional 2 unit PRBC -hold Eliquis -Protonix IV bid -GI consult -cbc in am 2.Elevated troponins -cardiology consult appreciated -suggestions implemented 3.Hx of DVT and PE -Hold Eliquis pending EGD 05/12 4.HTN -acceptable control on current therapies -adjust as indicated Full Code Pneumatic compression due to acute anemia Long discussion with patient. States she will receive the 2 units of packed cells but needs to return home in a.m. to take care of her aging mother. Interview by me failed to demonstrate any indication of suicidal ideation rather more caregiver fatigue syndrome. Seen by Noemy who agrees patient is not a risk for suicide. Discussed with GI. Patient will be discharged tomorrow and come in Sunday for outpatient follow up. She understands not to take her Eliquis till after EGD. We will re-evaluate in a.m. Quality Stroke Does the patient have a stroke diagnosis?: No VTE Prior VTE?: No VTE Risk Level:: Medical - moderate - high VTE Device Contraindication: N/A - Device Ordered VTE Drug Contraindication: Treatment Not Indicated
[2024-05-09] MEDS: Ascorbic Acid 500 MG TABLET 1000 MG PO (20:31)
[2024-05-09] MEDS: traMADoL HCL 50 MG TABLET PO (21:45)
[2024-05-10 04:00] VITALS: BP 170/74; PULSE 79; RESP 14; TEMP 37.3; O2SAT 96
[2024-05-10] MEDS: Pantoprazole Sodium 40 MG/10 ML VIAL IVPUSH ×2 (05:26→16:07)
[2024-05-10 07:05] VITALS: BP 180/74; PULSE 67; RESP 18; TEMP 37.2; O2SAT 96
[2024-05-10 07:09] LABS: Mean Corpuscular Hemoglobin 27.2 pg (27.0-33.0); Mean Corpuscular Volume 87.6 fL (80.0-98.0); Mean Platelet Volume 9.9 fL (9.4-12.3); Platelet Count 320 X10*3/uL (160-400); Red Blood Count 3.31 X10*6/uL (4.20-5.50); Red Cell Distribution Width 17.2 % (11.0-16.0); White Blood Count 6.7 X10*3/uL (4.8-10.8)
[2024-05-10 07:37] LABS: Alanine Aminotransferase 6 U/L (0-31); Albumin Level 2.6 g/dL (3.5-5.0); Alkaline Phosphatase 92 U/L (39-117); Anion Gap 12 (12-20); Aspartate Amino Transferase 13 U/L (5-31); Bilirubin Total 0.5 mg/dL (0.0-1.0); Blood Urea Nitrogen 46 mg/dL (9-16); Calcium 8.6 mg/dL (8.4-10.2); Carbon Dioxide 22 mmol/L (22-29); Chloride 113 mmol/L (96-108); Creatinine Clr Calc Pharmacy 20.2; Estimated Glomerular Filt Rate 17; Glucose Fasting 146 mg/dL (60-99); Potassium 4.4 mmol/L (3.3-5.1); Sodium 143 mmol/L (135-145); Total Protein 6.2 g/dL (6.5-8.0)
[2024-05-10] MEDS: Acetaminophen 325 MG TABLET 650 MG PO ×2 (09:14→16:07)
[2024-05-10] MEDS: Spironolactone 25 MG TABLET 12.5 MG PO (09:15)
[2024-05-10] MEDS: Isosorbide Mononitrate 30 MG TAB.ER.24H PO (09:15)
[2024-05-10] MEDS: LORazepam 0.5 MG TABLET PO (09:15)
[2024-05-10] MEDS: Metoprolol Tartrate 50 MG TABLET PO ×2 (09:16→13:11)
[2024-05-10] MEDS: 0.9 % Sodium Chloride Flush 3 ML SYRINGE IVFLUSH ×3 (09:17→20:39)
[2024-05-10] MEDS: Cyanocobalamin (Vitamin B-12) 1,000 MCG TABLET 1000 MCG PO (09:17)
[2024-05-10] MEDS: Cholecalciferol (Vitamin D3) 10 MCG TABLET PO (09:17)
[2024-05-10] MEDS: cloNIDine HCL 0.1 MG TABLET PO ×3 (09:17→20:39)
[2024-05-10 11:11] VITALS: BP 158/70; PULSE 63; RESP 20; TEMP 36.9; O2SAT 96
[2024-05-10] MEDS: Isosorbide Mononitrate 60 MG TAB.ER.24H PO (13:09)
[2024-05-10] MEDS: oxyCODONE HCl Immed Release 5 MG TABLET PO (13:18)
--- NOTE | 2024-05-10 15:19 | HO.PM.IMPN ---
Subjective Subjective Date of Service: 05/10/24 Interval History: No acute issues overnight. No active bleeding. Complains of diffuse joint pain Review of Systems Denies chest pain Denies shortness of breath Denies nausea vomiting diarrhea Denies fever chills Physical Exam Vital Signs: Vital Signs: Last Vital Signs Temp 98.5 F 05/10/24 11:11 Pulse 63 05/10/24 11:11 Resp 20 05/10/24 11:11 BP 158/70 H 05/10/24 11:11 Pulse Ox 96 05/10/24 11:11 O2 Del Method Room Air 05/10/24 11:11 BMI result Body Mass Index 26.2 Const: Other: Soft nontender nondistended normoactive bowel sounds Resp: Other: Clear to auscultation bilaterally no rales rhonchi or wheezes Cardio: Other: No S4; positive S1-S2; no S3 murmurs rubs or gallops GI: Other: Soft nontender nondistended normoactive bowel sounds Extrem: Other: No edema bilaterally Objective Data Active Medications Acetaminophen (Acetaminophen 325 Mg Tablet) 650 mg PO Q6H PRN PRN Reason: Pain, Mild 1-3,fever,headache Last Admin: 05/10/24 09:14 Dose: 650 mg Documented By: MARIA E Ascorbic Acid (Ascorbic Acid 500 Mg Tablet) 1,000 mg PO BEDTIME [facility] Last Admin: 05/09/24 20:31 Dose: 1,000 mg Documented By: GEORGIANA Bumetanide (Bumetanide 1 Mg Tablet) 1 mg PO DAILY PRN; Protocol PRN Reason: Fluid Retention Calcium Carbonate (Calcium Carbonate 750 Mg Tab.Chew) 750 mg PO Q4H PRN PRN Reason: Heartburn Clonidine HCl (Clonidine Hcl 0.1 Mg Tablet) 0.1 mg PO TID [facility]; Protocol Last Admin: 05/10/24 13:11 Dose: 0.1 mg Documented By: MARIA E Cyanocobalamin (Cyanocobalamin (Vitamin B-12) 1,000 Mcg Tablet) 1,000 mcg PO DAILY [facility] Last Admin: 05/10/24 09:17 Dose: 1,000 mcg Documented By: MARIA E Isosorbide Mononitrate (Isosorbide Mononitrate 60 Mg Tab.Er.24h) 60 mg PO DAILY [facility]; Protocol Last Admin: 05/10/24 13:09 Dose: 30 mg Documented By: MARIA E Comments: Per Dr. Bebe stockton in addition to 30mg given this morning. Lorazepam (Lorazepam 0.5 Mg Tablet) 0.5 mg PO Q4H PRN PRN Reason: Anxiety Last Admin: 05/10/24 09:15 Dose: 0.5 mg Documented By: MARIA E Magnesium Hydroxide (Milk Of Magnesia 30 Ml Oral.Susp) 30 ml PO DAILY PRN PRN Reason: Constipation Melatonin (Melatonin 3 Mg Tablet) 6 mg PO BEDTIME PRN PRN Reason: Insomnia Metoprolol Tartrate (Metoprolol Tartrate 50 Mg Tablet) 50 mg PO TID [facility]; Protocol Last Admin: 05/10/24 13:11 Dose: 50 mg Documented By: MARIA E Ondansetron HCl (Ondansetron Hcl 4 Mg/2 Ml Vial) 4 mg IVPUSH Q8H PRN PRN Reason: Nausea and Vomiting Oxycodone HCl (Oxycodone Hcl Immed Release 5 Mg Tablet) 5 mg PO Q4H PRN PRN Reason: Pain, Moderate(Pain Scale 4-6) Last Admin: 05/10/24 13:18 Dose: 5 mg Documented By: MARIA E Pantoprazole Sodium (Pantoprazole Sodium 40 Mg/10 Ml Vial) 40 mg IVPUSH BID@0630,1630 [facility] Last Admin: 05/10/24 05:26 Dose: 40 mg Documented By: GEORGIANA Sodium Chloride (0.9 % Sodium Chloride Flush 3 Ml Syringe) 3 ml IVFLUSH [facility] Last Admin: 05/10/24 13:19 Dose: 3 ml Documented By: MARIA E Spironolactone (Spironolactone 25 Mg Tablet) 12.5 mg PO DAILY [facility]; Protocol Last Admin: 05/10/24 09:15 Dose: 12.5 mg Documented By: MARIA E Vitamin D (Cholecalciferol (Vitamin D3) 10 Mcg Tablet) 10 mcg PO DAILY [facility] Last Admin: 05/10/24 09:17 Dose: 10 mcg Documented By: MARIA E Labs 05/10/24 05:59 05/10/24 05:59 Labs: Laboratory Results - last 24 hr 05/08/24 05/10/24 12:59 05:59 MCV 87.6 MCH 27.2 MCHC 31.0 RDW 17.2 H Plt Count 320 MPV 9.9 Absolute Nucleated RBC 0.000 Nucleated RBC % (auto) 0.0 Anion Gap 12 Estim Creat Clear Calc 20.2 Estimated GFR 17 Fasting Glucose 146 H Calcium 8.6 Total Bilirubin 0.5 AST 13 ALT 6 Alkaline Phosphatase 92 Total Protein 6.2 L Albumin 2.6 L Blood Type B Positive Antibody Screen POSITIVE Antibody Identification Anti-K Crossmatch ([facility]) See Detail Blood Bank Comment Technical Assessment and Plan (1) Acute on chronic anemia: Status: Acute Plan 74-year-old female with a PMH significant for?CAD s/p stenting 2019, hx of DVT with pulmonary embolism 2017 on Eliquis, HTN, HLD, CKD 3, chronic anemia requiring transfusions in the past, diet-controlled diabetes type 2, osteoarthritis, and chronic lower leg edema who presents to the ED with?chest pain and dizziness since this morning. Pt will be admitted to the hospital for treatment and further evaluation of acute symptomatic blood loss anemia concerning for GI bleed. 1.Acute on chronic symptomatic blood loss anemia -good response to transfusion -hold Eliquis pending EGD/colon -1 dose Lovenox in a.m. start colon prep in a.m. -Protonix IV bid -cbc in am 2.Elevated troponins -cardiology consult appreciated -suggestions implemented 3.Hx of DVT and PE -Hold Eliquis pending EGD 05/12 4.HTN -acceptable control on current therapies -adjust as indicated Full Code Pneumatic compression due to acute anemia Discussion with patient; mom placed in respite patient agrees to stay. Good response from transfusion. Continue hold Eliquis full-dose Lovenox and give prep tomorrow.: EGD 324 Quality Stroke Does the patient have a stroke diagnosis?: No VTE Prior VTE?: No VTE Risk Level:: Medical - moderate - high VTE Device Contraindication: N/A - Device Ordered VTE Drug Contraindication: Treatment Not Indicated
[2024-05-10 15:21] VITALS: BP 142/60; PULSE 67; RESP 16; TEMP 36.8; O2SAT 96
[2024-05-10] MEDS: Gabapentin 100 MG CAPSULE PO ×2 (16:07→20:39)
[2024-05-10 19:35] VITALS: BP 170/55; PULSE 67; RESP 16; TEMP 36.9; O2SAT 98
[2024-05-10] MEDS: Ascorbic Acid 500 MG TABLET 1000 MG PO (20:39)
[2024-05-11] VITALS (7 sets, daily range): BP systolic 145–182; BP diastolic 62–92; PULSE 64–78; RESP 16–18; TEMP 36.5–37.4; O2SAT 94–99
--- NOTE | 2024-05-11 | ECG_ITS ---
Test Reason : chest pain Blood Pressure : */* mmHG Vent. Rate : 65 BPM Atrial Rate : 65 BPM P-R Int : 140 ms QRS Dur : 86 ms QT Int : 420 ms P-R-T Axes : 62 10 -21 degrees QTcB Int : 436 ms Normal sinus rhythm ST & T wave abnormality, consider anterolateral ischemia Abnormal ECG When compared with ECG of 08-May-2024 12:45, T wave inversion now evident in Anterolateral leads Referred By: Gerson Edge Electronically Signed By: ALLISON CLAROS MD
[2024-05-11] MEDS: Pantoprazole Sodium 40 MG/10 ML VIAL IVPUSH (06:39)
[2024-05-11] MEDS: Metoprolol Tartrate 50 MG TABLET PO ×3 (08:18→20:32)
[2024-05-11] MEDS: Cholecalciferol (Vitamin D3) 10 MCG TABLET PO (08:18)
[2024-05-11] MEDS: LORazepam 0.5 MG TABLET PO ×2 (08:18→20:35)
[2024-05-11] MEDS: Gabapentin 100 MG CAPSULE PO ×3 (08:18→20:31)
[2024-05-11] MEDS: Cyanocobalamin (Vitamin B-12) 1,000 MCG TABLET 1000 MCG PO (08:18)
[2024-05-11] MEDS: Isosorbide Mononitrate 60 MG TAB.ER.24H PO (08:19)
[2024-05-11] MEDS: cloNIDine HCL 0.1 MG TABLET PO ×3 (08:19→20:31)
[2024-05-11] MEDS: Spironolactone 25 MG TABLET 12.5 MG PO (08:19)
[2024-05-11 08:43] LABS: MANUAL DIFF FLAG NO
[2024-05-11 08:48] LABS: Basophils Percent Auto 0.3 % (0-2); Eosinophils Absolute Auto 0.1 X10*3/uL (0.0-0.4); Eosinophils Percent Auto 1.1 % (0-4); Hemoglobin 10.2 g/dl (12.0-16.0); Imm Gran Abs Auto 0.03 X10*3/uL (0.00-0.03); Imm Gran Pct Auto 0.4 % (0.0-0.4); Lymphocytes Absolute Auto 1.1 X10*3/uL (1.2-4.9); Lymphocytes Percent Auto 15.8 % (20-40); Mean Corpuscular Hemoglobin 26.7 pg (27.0-33.0); Mean Platelet Volume 10.3 fL (9.4-12.3); Monocytes Absolute Auto 0.9 X10*3/uL (0.1-1.2); Neutrophils Percent Auto 70.4 % (45-73); Platelet Count 346 X10*3/uL (160-400); Red Blood Count 3.82 X10*6/uL (4.20-5.50); Red Cell Distribution Width 17.5 % (11.0-16.0); White Blood Count 7.1 X10*3/uL (4.8-10.8)
[2024-05-11 09:04] LABS: Alanine Aminotransferase 7 U/L (0-31); Albumin Level 2.8 g/dL (3.5-5.0); Alkaline Phosphatase 97 U/L (39-117); Anion Gap 13 (12-20); Aspartate Amino Transferase 12 U/L (5-31); Bilirubin Total 0.5 mg/dL (0.0-1.0); Blood Urea Nitrogen 45 mg/dL (9-16); Calcium 9.3 mg/dL (8.4-10.2); Carbon Dioxide 22 mmol/L (22-29); Chloride 113 mmol/L (96-108); Creatinine Clr Calc Pharmacy 21.9; Estimated Glomerular Filt Rate 19; Glucose Fasting 109 mg/dL (60-99); Potassium 4.5 mmol/L (3.3-5.1); Sodium 143 mmol/L (135-145)
[2024-05-11] MEDS: 0.9 % Sodium Chloride Flush 3 ML SYRINGE IVFLUSH ×3 (10:10→20:33)
--- NOTE | 2024-05-11 13:44 | HO.PM.IMPN ---
Subjective Subjective Date of Service: 05/11/24 Interval History: No acute issues overnight. Hemoglobin stable. No active bleeding Review of Systems Denies chest pain Denies shortness of breath Denies nausea vomiting diarrhea Denies fever chills Physical Exam Vital Signs: Vital Signs: Last Vital Signs Temp 99.4 F 05/11/24 10:53 Pulse 70 05/11/24 10:53 Resp 18 05/11/24 10:53 BP 145/70 H 05/11/24 10:53 Pulse Ox 98 05/11/24 10:53 O2 Del Method Room Air 05/11/24 10:53 BMI result Body Mass Index 26.2 Const: Other: Soft nontender nondistended normoactive bowel sounds Resp: Other: Clear to auscultation bilaterally no rales rhonchi or wheezes Cardio: Other: No S4; positive S1-S2; no S3 murmurs rubs or gallops GI: Other: Soft nontender nondistended normoactive bowel sounds Extrem: Other: No edema bilaterally Objective Data Active Medications Acetaminophen (Acetaminophen 325 Mg Tablet) 650 mg PO Q6H PRN PRN Reason: Pain, Mild 1-3,fever,headache Last Admin: 05/10/24 16:07 Dose: 650 mg Documented By: MARIA E Ascorbic Acid (Ascorbic Acid 500 Mg Tablet) 1,000 mg PO BEDTIME [facility] Last Admin: 05/10/24 20:39 Dose: 1,000 mg Documented By: GEORGIANA Bumetanide (Bumetanide 1 Mg Tablet) 1 mg PO DAILY PRN; Protocol PRN Reason: Fluid Retention Calcium Carbonate (Calcium Carbonate 750 Mg Tab.Chew) 750 mg PO Q4H PRN PRN Reason: Heartburn Clonidine HCl (Clonidine Hcl 0.1 Mg Tablet) 0.1 mg PO TID [facility]; Protocol Last Admin: 05/11/24 08:19 Dose: 0.1 mg Documented By: TAB Cyanocobalamin (Cyanocobalamin (Vitamin B-12) 1,000 Mcg Tablet) 1,000 mcg PO DAILY [facility] Last Admin: 05/11/24 08:18 Dose: 1,000 mcg Documented By: TAB Gabapentin (Gabapentin 100 Mg Capsule) 100 mg PO TID [facility] Last Admin: 05/11/24 08:18 Dose: 100 mg Documented By: TAB Isosorbide Mononitrate (Isosorbide Mononitrate 60 Mg Tab.Er.24h) 60 mg PO DAILY [facility]; Protocol Last Admin: 05/11/24 08:19 Dose: 60 mg Documented By: TAB Lorazepam (Lorazepam 0.5 Mg Tablet) 0.5 mg PO Q4H PRN PRN Reason: Anxiety Last Admin: 05/11/24 08:18 Dose: 0.5 mg Documented By: TAB Magnesium Hydroxide (Milk Of Magnesia 30 Ml Oral.Susp) 30 ml PO DAILY PRN PRN Reason: Constipation Melatonin (Melatonin 3 Mg Tablet) 6 mg PO BEDTIME PRN PRN Reason: Insomnia Metoprolol Tartrate (Metoprolol Tartrate 50 Mg Tablet) 50 mg PO TID [facility]; Protocol Last Admin: 05/11/24 08:18 Dose: 50 mg Documented By: TAB Ondansetron HCl (Ondansetron Hcl 4 Mg/2 Ml Vial) 4 mg IVPUSH Q8H PRN PRN Reason: Nausea and Vomiting Oxycodone HCl (Oxycodone Hcl Immed Release 5 Mg Tablet) 5 mg PO Q4H PRN PRN Reason: Pain, Moderate(Pain Scale 4-6) Last Admin: 05/10/24 13:18 Dose: 5 mg Documented By: MARIA E Pantoprazole Sodium (Pantoprazole Sodium 40 Mg/10 Ml Vial) 40 mg IVPUSH BID@0630,1630 [facility] Last Admin: 05/11/24 06:39 Dose: 40 mg Documented By: BUDDY Polyethylene Glycol/Electrolytes (Peg 3350/Na Sulf,Bicarb,Cl/Kcl 4,000 Ml Soln.Recon) 240 ml PO Q10M [facility] Stop: 05/11/24 16:26 Sodium Chloride (0.9 % Sodium Chloride Flush 3 Ml Syringe) 3 ml IVFLUSH QSHIFT [facility] Last Admin: 05/10/24 20:39 Dose: 3 ml Documented By: GEORGIANA Spironolactone (Spironolactone 25 Mg Tablet) 12.5 mg PO DAILY [facility]; Protocol Last Admin: 05/11/24 08:19 Dose: 12.5 mg Documented By: TAB Vitamin D (Cholecalciferol (Vitamin D3) 10 Mcg Tablet) 10 mcg PO DAILY [facility] Last Admin: 05/11/24 08:18 Dose: 10 mcg Documented By: TAB Labs 05/11/24 07:43 05/11/24 07:43 Labs: Laboratory Results - last 24 hr 05/11/24 07:43 MCV 89.0 MCH 26.7 L MCHC 30.0 L RDW 17.5 H Plt Count 346 MPV 10.3 Immature Gran % (Auto) 0.4 Neut % (Auto) 70.4 Lymph % (Auto) 15.8 L [place] % (Auto) 12.0 H Eos % (Auto) 1.1 Baso % (Auto) 0.3 Lymph # (Auto) 1.1 L [place] # (Auto) 0.9 Eos # (Auto) 0.1 Baso # (Auto) 0.0 Abs Immat Gran (auto) 0.03 Absolute Neuts (auto) 5.0 Absolute Nucleated RBC 0.000 Nucleated RBC % (auto) 0.0 Anion Gap 13 Estim Creat Clear Calc 21.9 Estimated GFR 19 Fasting Glucose 109 H Calcium 9.3 D Total Bilirubin 0.5 AST 12 ALT 7 Alkaline Phosphatase 97 Total Protein 7.0 Albumin 2.8 L Assessment and Plan (1) Acute on chronic anemia: Status: Acute Plan 74-year-old female with a PMH significant for?CAD s/p stenting 2019, hx of DVT with pulmonary embolism 2017 on Eliquis, HTN, HLD, CKD 3, chronic anemia requiring transfusions in the past, diet-controlled diabetes type 2, osteoarthritis, and chronic lower leg edema who presents to the ED with?chest pain and dizziness since this morning. Pt will be admitted to the hospital for treatment and further evaluation of acute symptomatic blood loss anemia concerning for GI bleed. 1.Acute on chronic symptomatic blood loss anemia -good response to transfusion -hold Eliquis pending EGD/colon -Lovenox given; clear liquids today prep started -Protonix IV bid -cbc in am 2.Elevated troponins -cardiology consult appreciated -suggestions implemented 3.Hx of DVT and PE -Hold Eliquis pending EGD 05/12 4.HTN -acceptable control on current therapies -adjust as indicated Full Code Pneumatic compression due to acute anemia Discussion with patient; mom placed in respite patient agrees to stay. Good response from transfusion. Continue hold Eliquis full-dose Lovenox and give prep tomorrow.: EGD 324 Quality Stroke Does the patient have a stroke diagnosis?: No VTE Prior VTE?: No VTE Risk Level:: Medical - moderate - high VTE Device Contraindication: N/A - Device Ordered VTE Drug Contraindication: Treatment Not Indicated
[2024-05-11] MEDS: oxyCODONE HCl Immed Release 5 MG TABLET PO ×2 (14:15→20:34)
[2024-05-11] MEDS: Enoxaparin Sodium 30 MG/0.3 ML SYRINGE SUBCUT (14:16)
[2024-05-11] MEDS: PEG 3350/Na Sulf,Bicarb,Cl/KCL 4,000 ML SOLN.RECON 4000 ML PO (18:31)
[2024-05-11] MEDS: Ascorbic Acid 500 MG TABLET 1000 MG PO (20:32)
[2024-05-11 21:11] LABS: Troponin-I High Sensitivity 24.2 ng/L (<3.5-17.0)
[2024-05-12] VITALS (8 sets, daily range): BP systolic 122–180; BP diastolic 53–82; PULSE 69–103; RESP 15–20; TEMP 36.3–37.1; O2SAT 93–98
[2024-05-12] MEDS: LORazepam 0.5 MG TABLET PO ×2 (05:32→20:26)
[2024-05-12] MEDS: oxyCODONE HCl Immed Release 5 MG TABLET PO (05:33)
[2024-05-12] MEDS: cloNIDine HCL 0.1 MG TABLET PO ×2 (08:36→20:27)
[2024-05-12] MEDS: Cholecalciferol (Vitamin D3) 10 MCG TABLET PO (08:37)
[2024-05-12] MEDS: Spironolactone 25 MG TABLET 12.5 MG PO (08:37)
[2024-05-12] MEDS: Cyanocobalamin (Vitamin B-12) 1,000 MCG TABLET 1000 MCG PO (08:37)
[2024-05-12] MEDS: Metoprolol Tartrate 50 MG TABLET PO ×2 (08:37→20:27)
[2024-05-12] MEDS: Isosorbide Mononitrate 60 MG TAB.ER.24H PO (08:37)
[2024-05-12] MEDS: Gabapentin 100 MG CAPSULE PO ×2 (08:38→20:27)
[2024-05-12] MEDS: PEG 3350/Na Sulf,Bicarb,Cl/KCL 4,000 ML SOLN.RECON 4000 ML PO (11:17)
[2024-05-12] MEDS: 0.9 % Sodium Chloride Flush 3 ML SYRINGE IVFLUSH (11:17)
[2024-05-12] MEDS: Sodium Phosphate,Mono-Dibasic 133 ML ENEMA PR (12:12)
--- NOTE | 2024-05-12 13:58 | HO.PM.IMPN ---
Subjective Subjective Date of Service: 05/12/24 Interval History: No acute issues overnight. Difficulties with prep however finished 2nd half prep prior to OR. Review of Systems Denies chest pain Denies shortness of breath Denies nausea vomiting diarrhea Denies fever chills Physical Exam Vital Signs: Vital Signs: Last Vital Signs Temp 98.7 F 05/12/24 12:00 Pulse 72 05/12/24 12:00 Resp 17 05/12/24 12:00 BP 130/76 05/12/24 12:00 Pulse Ox 98 05/12/24 12:00 O2 Del Method Room Air 05/12/24 12:00 BMI result Body Mass Index 26.2 Const: Other: Soft nontender nondistended normoactive bowel sounds Resp: Other: Clear to auscultation bilaterally no rales rhonchi or wheezes Cardio: Other: No S4; positive S1-S2; no S3 murmurs rubs or gallops GI: Other: Soft nontender nondistended normoactive bowel sounds Extrem: Other: No edema bilaterally Objective Data Active Medications Acetaminophen (Acetaminophen 325 Mg Tablet) 650 mg PO Q6H PRN PRN Reason: Pain, Mild 1-3,fever,headache Last Admin: 05/10/24 16:07 Dose: 650 mg Documented By: MARIA E Ascorbic Acid (Ascorbic Acid 500 Mg Tablet) 1,000 mg PO BEDTIME [facility] Last Admin: 05/11/24 20:32 Dose: 1,000 mg Documented By: AILIN Bumetanide (Bumetanide 1 Mg Tablet) 1 mg PO DAILY PRN; Protocol PRN Reason: Fluid Retention Calcium Carbonate (Calcium Carbonate 750 Mg Tab.Chew) 750 mg PO Q4H PRN PRN Reason: Heartburn Clonidine HCl (Clonidine Hcl 0.1 Mg Tablet) 0.1 mg PO TID [facility]; Protocol Last Admin: 05/12/24 08:36 Dose: 0.1 mg Documented By: HORACIO Cyanocobalamin (Cyanocobalamin (Vitamin B-12) 1,000 Mcg Tablet) 1,000 mcg PO DAILY [facility] Last Admin: 05/12/24 08:37 Dose: 1,000 mcg Documented By: HORACIO Gabapentin (Gabapentin 100 Mg Capsule) 100 mg PO TID [facility] Last Admin: 05/12/24 08:38 Dose: 100 mg Documented By: HORACIO Isosorbide Mononitrate (Isosorbide Mononitrate 60 Mg Tab.Er.24h) 60 mg PO DAILY [facility]; Protocol Last Admin: 05/12/24 08:37 Dose: 60 mg Documented By: HORACIO Lorazepam (Lorazepam 0.5 Mg Tablet) 0.5 mg PO Q4H PRN PRN Reason: Anxiety Last Admin: 05/12/24 05:32 Dose: 0.5 mg Documented By: AILIN Magnesium Hydroxide (Milk Of Magnesia 30 Ml Oral.Susp) 30 ml PO DAILY PRN PRN Reason: Constipation Melatonin (Melatonin 3 Mg Tablet) 6 mg PO BEDTIME PRN PRN Reason: Insomnia Metoprolol Tartrate (Metoprolol Tartrate 50 Mg Tablet) 50 mg PO TID [facility]; Protocol Last Admin: 05/12/24 08:37 Dose: 50 mg Documented By: HORACIO Naloxone HCl (Naloxone Hcl 0.4 Mg/Ml Vial) 0.04 mg IVPUSH Q5M PRN PRN Reason: Excessive sedation or RR < 8 Ondansetron HCl (Ondansetron Hcl 4 Mg/2 Ml Vial) 4 mg IVPUSH Q8H PRN PRN Reason: Nausea and Vomiting Oxycodone HCl (Oxycodone Hcl Immed Release 5 Mg Tablet) 5 mg PO Q4H PRN PRN Reason: Pain, Moderate(Pain Scale 4-6) Last Admin: 05/12/24 05:33 Dose: 5 mg Documented By: AILIN Sodium Chloride (0.9 % Sodium Chloride Flush 3 Ml Syringe) [facility] Last Admin: 05/12/24 11:17 Dose: 3 ml Documented By: HORACIO Spironolactone (Spironolactone 25 Mg Tablet) 12.5 mg PO DAILY [facility]; Protocol Last Admin: 05/12/24 08:37 Dose: 12.5 mg Documented By: HORACIO Vitamin D (Cholecalciferol (Vitamin D3) 10 Mcg Tablet) 10 mcg PO DAILY [facility] Last Admin: 05/12/24 08:37 Dose: 10 mcg Documented By: HORACIO Labs 05/11/24 07:43 05/11/24 07:43 Assessment and Plan (1) Anemia: Status: Acute Plan 74-year-old female with a PMH significant for?CAD s/p stenting 2019, hx of DVT with pulmonary embolism 2017 on Eliquis, HTN, HLD, CKD 3, chronic anemia requiring transfusions in the past, diet-controlled diabetes type 2, osteoarthritis, and chronic lower leg edema who presents to the ED with?chest pain and dizziness since this morning. Pt will be admitted to the hospital for treatment and further evaluation of acute symptomatic blood loss anemia concerning for GI bleed. 1.Acute on chronic symptomatic blood loss anemia -hemoglobin stable -hold Eliquis pending EGD/colon -restart Eliquis as per GI -Protonix IV bid... Switch to p.o. upon discharge -cbc in am 2.Elevated troponins -cardiology consult appreciated -suggestions implemented -no further issues 3.Hx of DVT and PE -Hold Eliquis pending EGD 05/12 4.HTN -acceptable control on current therapies -adjust as indicated Full Code Pneumatic compression due to acute anemia Discussion with patient; mom placed in respite patient agrees to stay. Good response from transfusion. Continue hold Eliquis full-dose Lovenox and give prep tomorrow.: EGD 324 Quality Stroke Does the patient have a stroke diagnosis?: No VTE Prior VTE?: No VTE Risk Level:: Medical - moderate - high VTE Device Contraindication: N/A - Device Ordered VTE Drug Contraindication: Treatment Not Indicated
--- NOTE | 2024-05-12 14:01 | MHC.SHP ---
Pre-Procedural Eval Section A - 24 Hr Update-Section A only Date of Service: 05/12/24 The patient is an INPATIENT: Yes The patient has been examined within 24 hours of the surgical procedure. The History & Physical has been completed within 30 days and I have reviewed it.: Yes Section B - Complete if H&P > 30 days Chief Complaint: Anemia, chest pain, elevated BP Allergies: Allergies Allergy/AdvReac Type Severity Reaction Status Date / Time amoxicillin Allergy Unknown Unknown Verified 05/08/24 12:53 hydrochlorothiazide Allergy Unknown Unknown Verified 05/08/24 12:53 morphine Allergy Unknown Nausea Verified 05/09/24 00:00 codiene Allergy Intermediate Nausea Uncoded 05/08/24 12:53 Chase inhibitors Allergy Unknown Unknown Uncoded 05/08/24 12:53 latex Allergy Unknown rash Uncoded 05/08/24 12:53 Plan Diagnosis/Plan: Unchanged I have reviewed the history and physical and performed a pertinent physical examination on my patient. No changes have occurred unless specified. Time Spent With Patient Time: Total time managing care of this patient today ____ minutes.
--- NOTE | 2024-05-12 14:16 | P.OPN-COLO_ITS ---
Colonoscopy Operative Note Operative Note Date of Service: 05/12/24 Narrative: Procedure: Upper endoscopy and colonoscopy Indication: Acute on chronic anemia Endoscopist: Alison Spear MD Anesthesia Provider: Dr Diana Hoskins Anesthesia type: MAC Instrument: [id number] and [id number] EGD Procedure:?? The procedure, indications, preparation and potential complications were reviewed with the patient, who indicated understanding and gave written informed consent to proceed. The endoscope was introduced through the mouth, and advanced to the 2nd part of the duodenum. The mucosa was carefully examined on slow withdrawal of the endoscope. The patient tolerated the procedure well. There were no immediate complications.? EGD Findings:? * Esophagus:? Normal esophageal mucosa was noted. The Z-line was at 38 cm. * Stomach:? Normal gastric mucosa. Retroflexion was performed in the cardia. * Duodenum:? A 2 cm polypoid lesion in the first portion of duodenum was seen. Cold forceps biopsies were taken for histology. A prominent papilla was noted, cold forceps biopsies were taken to r/o periampullary adenoma. Cold forceps biopsies were taken from the duodenal bulb and 2nd portion of the duodenum to rule out celiac sprue. Colonoscopy Procedure:? The patient was then turned for the colonoscopy. A digital rectal exam was performed which was abnormal.? A distal attachment cap was affixed to the tip of the scope and the colonoscope was then inserted through the anus and advanced through the colon and advanced to the cecum at 75 cm.? Appendiceal orifice and ileocecal valve were identified. Mucosa was carefully examined under high d efinition white light as the instrument was slowly withdrawn in a retrograde panoramic fashion. Retroflexion was performed in rectum. The procedure was not difficult. The quality of the prep was BBPS: fair-poor in some places Withdrawal time 15 minutes Limitations: Fair prep Findings: Mucosa: Normal colon and terminal ileum mucosa. Prep was not adequate for dete ction of polyps but no large masses were noted to the extent visualized. Protruding lesions: * Medium internal hemorrhoids without stigmata of recent bleeding. Impression: 1. Normal esophagus 2. Normal stomach 3. Duodenal polyp 4. Fair prep 5. Internal hemorrhoids Recommendations:?? * Follow-up path results * No obvious source of GIB noted on this exam * CT enterography for evaluation of small bowel * Consider hemolysis work up * IV iron 200 mg while inpatient. Consider EPO. * Outpatient video capsule endoscopy to be booked * She will also need a repeat colonoscopy within 6 months for adequate screening
[2024-05-12] MEDS: Erythromycin Lactobionate 250 MG in 0.9 % Sodium Chloride 100 ML 100 MG IV (14:36)
--- NOTE | 2024-05-12 14:38 | HO.ANESPROP2 ---
[facility] Active Problems Active Problems: All Active Problems Preop cardiovascular exam (Acute) Chest discomfort (Acute) Acute on chronic anemia (Acute) Anemia (Acute) Osteoarthritis of right knee (Acute) Knee pain, right (Acute) Gout (Acute) Unintentional weight loss (Acute) CAD (coronary artery disease) (Acute) Dyspnea (Acute) GIB (gastrointestinal bleeding) (Acute) Hyperkalemia (Acute) Iron deficiency (Acute) Anemia in chronic kidney disease (Acute) Hypertension (Acute) CKD (chronic kidney disease) stage 3, GFR 30-59 ml/min (Acute) Past Medical History Medical History Chronic kidney disease Anemia in chronic kidney disease Family History Family history of problems with anesthesia: No Surgical History Surgical History History of partial hysterectomy History of Problems with Anesthesia: No Social History Social History Household Members: Family Housing: Apartment Do you presently have visiting nurse or other home services: No Alcohol intake: never Patient Tobacco Use Status: Former Tobacco user Smoked in Last 30 Days: No Use of substances other than those prescribed or required for medical reasons: No Currently Displaying Signs/Symptoms of Drug Intoxication Withdrawal: No Any prior treatment program specific to substance use: No Have you been hit, kicked, punched, or otherwise hurt by someone within the past year? If so, by whom?: No Do you feel safe in your current relationship?: No Current Relationship Is there a partner from a previous relationship who is making you feel unsafe now?: No Are you made to feel afraid or neglected: No Are you DNR?: No Advance Directives: No Advance Directives Information Provided: Yes Do you have a plan to hurt others: No Plan Recently lost weight without trying: No How much weight loss: Not applicable Eating poorly because of decreased appetite: No Nutrition screen score: 0 Nutrition Risks: No Nutritional Risk Patient : No service: No Meds Allergies Allergy/AdvReac Type Severity Reaction Status Date / Time amoxicillin Allergy Unknown Unknown Verified 05/08/24 12:53 hydrochlorothiazide Allergy Unknown Unknown Verified 05/08/24 12:53 morphine Allergy Unknown Nausea Verified 05/09/24 00:00 codiene Allergy Intermediate Nausea Uncoded 05/08/24 12:53 Chase inhibitors Allergy Unknown Unknown Uncoded 05/08/24 12:53 latex Allergy Unknown rash Uncoded 05/08/24 12:53 Active Medications: Current Medications Acetaminophen (Acetaminophen 325 Mg Tablet) 650 mg PO Q6H PRN PRN Reason: Pain, Mild 1-3,fever,headache Last Admin: 05/10/24 16:07 Dose: 650 mg Ascorbic Acid (Ascorbic Acid 500 Mg Tablet) 1,000 mg PO BEDTIME [facility] Last Admin: 05/11/24 20:32 Dose: 1,000 mg Bumetanide (Bumetanide 1 Mg Tablet) 1 mg PO DAILY PRN; Protocol PRN Reason: Fluid Retention Calcium Carbonate (Calcium Carbonate 750 Mg Tab.Chew) 750 mg PO Q4H PRN PRN Reason: Heartburn Clonidine HCl (Clonidine Hcl 0.1 Mg Tablet) 0.1 mg PO TID [facility]; Protocol Last Admin: 05/12/24 08:36 Dose: 0.1 mg Cyanocobalamin (Cyanocobalamin (Vitamin B-12) 1,000 Mcg Tablet) 1,000 mcg PO DAILY [facility] Last Admin: 05/12/24 08:37 Dose: 1,000 mcg Gabapentin (Gabapentin 100 Mg Capsule) 100 mg PO TID [facility] Last Admin: 05/12/24 08:38 Dose: 100 mg Erythromycin Lactobionate 250 (mg/ Sodium Chloride) 100 mls @ 100 mls/hr IV ONCE ONE Stop: 05/12/24 15:14 Last Admin: 05/12/24 14:36 Dose: 100 mls/hr Isosorbide Mononitrate (Isosorbide Mononitrate 60 Mg Tab.Er.24h) 60 mg PO DAILY [facility]; Protocol Last Admin: 05/12/24 08:37 Dose: 60 mg Lorazepam (Lorazepam 0.5 Mg Tablet) 0.5 mg PO Q4H PRN PRN Reason: Anxiety Last Admin: 05/12/24 05:32 Dose: 0.5 mg Magnesium Hydroxide (Milk Of Magnesia 30 Ml Oral.Susp) 30 ml PO DAILY PRN PRN Reason: Constipation Melatonin (Melatonin 3 Mg Tablet) 6 mg PO BEDTIME PRN PRN Reason: Insomnia Metoprolol Tartrate (Metoprolol Tartrate 50 Mg Tablet) 50 mg PO TID [facility]; Protocol Last Admin: 05/12/24 08:37 Dose: 50 mg Naloxone HCl (Naloxone Hcl 0.4 Mg/Ml Vial) 0.04 mg IVPUSH Q5M PRN PRN Reason: Excessive sedation or RR < 8 Naloxone HCl (Naloxone Hcl 0.4 Mg/Ml Vial) 0.04 mg IVPUSH Q5M PRN PRN Reason: Excessive sedation or RR < 8 Ondansetron HCl (Ondansetron Hcl 4 Mg/2 Ml Vial) 4 mg IVPUSH Q8H PRN PRN Reason: Nausea and Vomiting Oxycodone HCl (Oxycodone Hcl Immed Release 5 Mg Tablet) 5 mg PO Q4H PRN PRN Reason: Pain, Moderate(Pain Scale 4-6) Last Admin: 05/12/24 05:33 Dose: 5 mg Sodium Chloride (0.9 % Sodium Chloride Flush 3 Ml Syringe) 3 ml IVFLUSH [facility] Last Admin: 05/12/24 11:17 Dose: 3 ml Spironolactone (Spironolactone 25 Mg Tablet) 12.5 mg PO DAILY [facility]; Protocol Last Admin: 05/12/24 08:37 Dose: 12.5 mg Vitamin D (Cholecalciferol (Vitamin D3) 10 Mcg Tablet) 10 mcg PO DAILY [facility] Last Admin: 05/12/24 08:37 Dose: 10 mcg Home Medications ?Medication ?Instructions ?Recorded ?Confirmed ?Last Taken ?Type apixaban 2.5 mg tablet (Eliquis) 2.5 mg PO BID 01/30/23 05/08/24 05/08/24 History spironolactone 25 mg tablet 12.5 mg PO DAILY 04/04/23 05/08/24 05/08/24 History ascorbate calcium (vitamin C) 500 1 g PO BEDTIME 02/27/24 05/08/24 05/08/24 History mg tablet cholecalciferol (vitamin D3) 10 10 mcg PO DAILY 02/27/24 05/08/24 05/08/24 History mcg (400 unit) capsule mecobalamin (vitamin B12) 1,000 1,000 mcg PO DAILY 02/27/24 05/08/24 05/08/24 History mcg chewable tablet acetaminophen 500 mg tablet 1,500 mg PO DAILY PRN Pain 05/08/24 05/08/24 Unknown History aspirin 325 mg tablet 325 - 650 mg PO DAILY PRN Pain 05/08/24 05/08/24 Unknown History bumetanide 1 mg tablet 1 mg PO DAILY PRN Fluid Retention 05/08/24 05/08/24 Unknown History clonidine HCl 0.1 mg tablet 0.1 mg PO TID 05/08/24 05/08/24 05/08/24 History metoprolol tartrate 50 mg tablet 50 mg PO TID 05/08/24 05/08/24 05/08/24 History Exam Height,Weight and Vital Signs: Height 5 ft 8 in Weight 78.1 kg Last Vital Signs Temp 97.6 F 05/12/24 13:50 Pulse 69 05/12/24 13:50 Resp 18 05/12/24 13:50 BP 178/72 H 05/12/24 13:50 Pulse Ox 98 05/12/24 13:50 O2 Del Method Room Air 05/12/24 13:50 Pertinent Lab Results Pertinent Lab Results: Laboratory Tests 05/08/24 05/08/24 05/08/24 12:59 14:35 15:16 WBC 6.6 RBC 2.20 L Hgb 5.2 L* Hct 18.9 L* MCV 85.9 MCH 23.6 L MCHC 27.5 L RDW 20.6 H Plt Count 397 MPV 9.3 L Immature Gran % (Auto) 0.6 H Neut % (Auto) 73.6 H Lymph % (Auto) 13.8 L [place] % (Auto) 10.7 Eos % (Auto) 0.8 Baso % (Auto) 0.5 Lymph # (Auto) 0.9 L [place] # (Auto) 0.7 Eos # (Auto) 0.1 Baso # (Auto) 0.0 Abs Immat Gran (auto) 0.04 H Absolute Neuts (auto) 4.9 Absolute Nucleated RBC 0.040 H Nucleated RBC % (auto) 0.6 H Absolute Retic 0.057 Percent Retic 2.6 H Immature Retic Fraction 40.4 H Retic Hgb Equivalent 18.8 L PT 15.9 H INR 1.4 H Sodium 142 Potassium 4.9 Chloride 112 H Carbon Dioxide 23 Anion Gap 12 BUN 49 H Creatinine 2.27 H Estim Creat Clear Calc 24.7 Estimated GFR 21 Random Glucose 125 H Fasting Glucose Calcium 8.9 D Magnesium 2.7 H Total Bilirubin 0.3 AST 16 ALT 8 Alkaline Phosphatase 107 Troponin I High Sens 24.0 H 83.9 H* D B-Natriuretic Peptide 368 H Total Protein 6.9 Albumin 3.0 L TSH 1.39 Urine Color Yellow Urine Appearance Clear Urine pH 6.0 Ur Specific [place] 1.015 Urine Protein 300 (3+) H Urine Glucose (UA) Negative Urine Ketones Negative Urine Blood Negative Urine Nitrite Negative Ur Leukocyte Esterase Negative Urine RBC 0-2 Urine WBC 0-5 Ur Squamous Epith Cells 0-2 Urine Bacteria None Seen Hyaline Casts 0-2 Influenza Type A (PCR) NEGATIVE Influenza Type B (PCR) NEGATIVE RSV RNA Qual (PCR) NEGATIVE SARS-CoV-2 RNA (RT-PCR) NEGATIVE Blood Type B Positive Antibody Screen POSITIVE Antibody Identification Anti-K Crossmatch ([facility]) See Detail Blood Bank Comment Technical 05/09/24 05/10/24 05/11/24 04:25 05:59 07:43 WBC 6.1 6.7 7.1 RBC 2.84 L D 3.31 L 3.82 L Hgb 7.2 L D 9.0 L D 10.2 L Hct 24.3 L D 29.0 L 34.0 L MCV 85.6 87.6 89.0 MCH 25.4 L 27.2 26.7 L MCHC 29.6 L 31.0 30.0 L RDW 17.9 H 17.2 H 17.5 H Plt Count 343 320 346 MPV 9.6 9.9 10.3 Immature Gran % (Auto) 0.4 Neut % (Auto) 70.4 Lymph % (Auto) 15.8 L [place] % (Auto) 12.0 H Eos % (Auto) 1.1 Baso % (Auto) 0.3 Lymph # (Auto) 1.1 L [place] # (Auto) 0.9 Eos # (Auto) 0.1 Baso # (Auto) 0.0 Abs Immat Gran (auto) 0.03 Absolute Neuts (auto) 5.0 Absolute Nucleated RBC 0.000 0.000 0.000 Nucleated RBC % (auto) 0.0 0.0 0.0 Absolute Retic Percent Retic Immature Retic Fraction Retic Hgb Equivalent PT INR Sodium 143 143 143 Potassium 4.9 4.4 4.5 Chloride 114 H 113 H 113 H Carbon Dioxide 22 22 22 Anion Gap 12 12 13 BUN 48 H 46 H 45 H Creatinine 2.19 H 2.72 H 2.50 H Estim Creat Clear Calc 25.5 20.2 21.9 Estimated GFR 22 17 19 Random Glucose 120 H Fasting Glucose 146 H 109 H Calcium 8.7 8.6 9.3 D Magnesium Total Bilirubin 0.5 0.5 AST 13 12 ALT 6 7 Alkaline Phosphatase 92 97 Troponin I High Sens B-Natriuretic Peptide Total Protein 6.2 L 7.0 Albumin 2.6 L 2.8 L TSH Urine Color Urine Appearance Urine pH Ur Specific [place] Urine Protein Urine Glucose (UA) Urine Ketones Urine Blood Urine Nitrite Ur Leukocyte Esterase Urine RBC Urine WBC Ur Squamous Epith Cells Urine Bacteria Hyaline Casts Influenza Type A (PCR) Influenza Type B (PCR) RSV RNA Qual (PCR) SARS-CoV-2 RNA (RT-PCR) Blood Type Antibody Screen Antibody Identification Crossmatch ([facility]) Blood Bank Comment 05/11/24 20:44 WBC RBC Hgb Hct MCV MCH MCHC RDW Plt Count MPV Immature Gran % (Auto) Neut % (Auto) Lymph % (Auto) [place] % (Auto) Eos % (Auto) Baso % (Auto) Lymph # (Auto) [place] # (Auto) Eos # (Auto) Baso # (Auto) Abs Immat Gran (auto) Absolute Neuts (auto) Absolute Nucleated RBC Nucleated RBC % (auto) Absolute Retic Percent Retic Immature Retic Fraction Retic Hgb Equivalent PT INR Sodium Potassium Chloride Carbon Dioxide Anion Gap BUN Creatinine Estim Creat Clear Calc Estimated GFR Random Glucose Fasting Glucose Calcium Magnesium Total Bilirubin AST ALT Alkaline Phosphatase Troponin I High Sens 24.2 H D B-Natriuretic Peptide Total Protein Albumin TSH Urine Color Urine Appearance Urine pH Ur Specific [place] Urine Protein Urine Glucose (UA) Urine Ketones Urine Blood Urine Nitrite Ur Leukocyte Esterase Urine RBC Urine WBC Ur Squamous Epith Cells Urine Bacteria Hyaline Casts Influenza Type A (PCR) Influenza Type B (PCR) RSV RNA Qual (PCR) SARS-CoV-2 RNA (RT-PCR) Blood Type Antibody Screen Antibody Identification Crossmatch ([facility]) Blood Bank Comment Airway Mallampati Class: II TM Dist: >3cm Neck ROM: Full Heart: rrr Lungs: cta Assessment and Plan Assessment Anesthesia Assessment: Anesthesia Plan Discussed and Chart Reviewed Final Anesthetic Review Family History of Problems with Anesthesia: No History of Problems with Anesthesia: No NPO: Yes ASA Class: III Final Preanesthetic Review: No Changes in Pt Med Stat, Meds/Allgs Chart Reviewed and Consent Obtained/Reviewed Patient Risk: Intermediate Procedure Risk: Intermediate Anesthetic Plan Anesthetic Plan: MAC: Disposition: Standard PACU
--- NOTE | 2024-05-12 15:06 | MHC.CM.PN ---
Addendum entered by Dianne Wilson RN 05/12/24 15:37: PER MD NOTE PT AGREEABLE TO STAY INPT, ANTIC PT WILL DC HOME TOMORROW 05/13. Original Note: IMM 05/12/24, ANTIC PT WILL BE MEDICALLY CLEARED FOR DC AFTER ENDOSCOPY, PT HAS NOT RETURNED TO UNIT AT TIME OF THIS NOTE, CM WILL COORDINATE DC W/ED CM PT'S MOTHER W/DEMENTIA IS BOARDING IN ED AND BOTH PT AND PT'S MOTHER WILL NEED TRANSPORT HOME.
[2024-05-12] MEDS: Ascorbic Acid 500 MG TABLET 1000 MG PO (20:26)
[2024-05-12] MEDS: Melatonin 3 MG TABLET 6 MG PO (20:26)
[2024-05-13] VITALS (7 sets, daily range): BP systolic 148–174; BP diastolic 52–82; PULSE 63–84; RESP 16–20; TEMP 36.2–37.1; O2SAT 94–98
[2024-05-13 07:12] LABS: MANUAL DIFF FLAG NO
[2024-05-13 07:25] LABS: Basophils Percent Auto 0.4 % (0-2); Eosinophils Absolute Auto 0.1 X10*3/uL (0.0-0.4); Eosinophils Percent Auto 1.2 % (0-4); Hemoglobin 9.2 g/dl (12.0-16.0); Imm Gran Abs Auto 0.01 X10*3/uL (0.00-0.03); Imm Gran Pct Auto 0.2 % (0.0-0.4); Lymphocytes Absolute Auto 1.1 X10*3/uL (1.2-4.9); Lymphocytes Percent Auto 19.1 % (20-40); Mean Corpuscular HGB Conc 30.7 g/dl (31.0-35.0); Mean Corpuscular Hemoglobin 27.1 pg (27.0-33.0); Mean Corpuscular Volume 88.5 fL (80.0-98.0); Mean Platelet Volume 10.2 fL (9.4-12.3); Monocytes Absolute Auto 0.7 X10*3/uL (0.1-1.2); Monocytes Percent Auto 13.1 % (2-11); Neutrophils Absolute Auto 3.7 x10*3/uL (2.0-8.3); Platelet Count 311 X10*3/uL (160-400); Red Blood Count 3.39 X10*6/uL (4.20-5.50); Red Cell Distribution Width 17.9 % (11.0-16.0); White Blood Count 5.7 X10*3/uL (4.8-10.8)
[2024-05-13 07:44] LABS: Alanine Aminotransferase < 6 U/L (0-31); Albumin Level 2.6 g/dL (3.5-5.0); Alkaline Phosphatase 85 U/L (39-117); Anion Gap 11 (12-20); Aspartate Amino Transferase 14 U/L (5-31); Bilirubin Total 0.3 mg/dL (0.0-1.0); Blood Urea Nitrogen 51 mg/dL (9-16); Calcium 8.9 mg/dL (8.4-10.2); Carbon Dioxide 23 mmol/L (22-29); Chloride 115 mmol/L (96-108); Creatinine Clr Calc Pharmacy 20.7; Estimated Glomerular Filt Rate 18; Glucose Fasting 102 mg/dL (60-99); Potassium 4.2 mmol/L (3.3-5.1); Sodium 145 mmol/L (135-145); Total Protein 5.9 g/dL (6.5-8.0)
[2024-05-13] MEDS: Isosorbide Mononitrate 60 MG TAB.ER.24H PO (08:49)
[2024-05-13] MEDS: cloNIDine HCL 0.1 MG TABLET PO ×3 (08:49→21:33)
[2024-05-13] MEDS: LORazepam 0.5 MG TABLET PO ×2 (08:50→16:19)
[2024-05-13] MEDS: Cholecalciferol (Vitamin D3) 10 MCG TABLET PO (08:50)
[2024-05-13] MEDS: Metoprolol Tartrate 50 MG TABLET PO ×3 (08:50→21:32)
[2024-05-13] MEDS: 0.9 % Sodium Chloride Flush 3 ML SYRINGE IVFLUSH ×3 (08:50→21:36)
[2024-05-13] MEDS: Cyanocobalamin (Vitamin B-12) 1,000 MCG TABLET 1000 MCG PO (08:50)
[2024-05-13] MEDS: Spironolactone 25 MG TABLET 12.5 MG PO (08:50)
[2024-05-13] MEDS: Gabapentin 100 MG CAPSULE PO ×3 (08:50→21:31)
--- NOTE | 2024-05-13 09:35 | MHC.CM.PN ---
Addendum entered by Dianne Wilson RN 05/13/24 10:52: PER HOSPITALIST PT WILL NOT DC D/T NEED FOR BLOOD CLOT WORK-UP FOR RIGHT KNEE. ED CM UPDATED. Original Note: ANTIC PT DISCHARGING HOME VIA [facility] AT 12:30PM, NO VNA D/T PT NOT HAVING PCP AND DECLINED ASSISTANCE W/NEW PT APPT, ED CM AWARE AND WILL SET UP TRANSPORT FOR PT'S MOTHER JOSEPH HDEZ.
--- NOTE | 2024-05-13 12:32 | P.PNIM_ITS ---
Subjective Subjective Date of Service: 05/13/24 Interval History: Mrs. Easton is upset as her right leg has been swollen for a while and wanted sometimes for swelling and pain. She is concerned about this as she has hx of VTE. Review of Systems All 12 systems were reviewed and normal except as noted in HPI. Physical Exam 2 Vital Signs: Vital Signs: Last Vital Signs Temp 97.8 F 05/13/24 11:58 Pulse 64 05/13/24 11:58 Resp 20 05/13/24 11:58 BP 160/60 H 05/13/24 11:58 Pulse Ox 97 05/13/24 11:58 O2 Del Method Room Air 05/13/24 11:58 BMI result Body Mass Index 26.2 Constitutional - Awake and Alert, No apparent distress. Very pleasant and cooperative. HEENT - PERRL, EOMI Heart - RRR, No murmurs Lungs - Normal lung expansion, Normal respiratory effort, No respiratory distress, CTA bilaterally Abdomen - Nontenderness Extremities - Right leg: Significant pitting edema and tenderness to palpations. No wounds. Musculoskeletal - Normal inspection, normal ROM Skin - Warm/Dry. No pallor. Neurological - Alert & oriented x3. No focal weakness grossly noted. Normal speech. Psychological - Appropriate affect Objective Data Active Medications Acetaminophen (Acetaminophen 325 Mg Tablet) 975 mg PO QID [facility] Ascorbic Acid (Ascorbic Acid 500 Mg Tablet) 1,000 mg PO BEDTIME [facility] Last Admin: 05/12/24 20:26 Dose: 1,000 mg Documented By: LAUREN Bumetanide (Bumetanide 1 Mg Tablet) 1 mg PO DAILY PRN; Protocol PRN Reason: Fluid Retention Calcium Carbonate (Calcium Carbonate 750 Mg Tab.Chew) 750 mg PO Q4H PRN PRN Reason: Heartburn Clonidine HCl (Clonidine Hcl 0.1 Mg Tablet) 0.1 mg PO TID [facility]; Protocol Last Admin: 05/13/24 08:49 Dose: 0.1 mg Documented By: BERTRAM Cyanocobalamin (Cyanocobalamin (Vitamin B-12) 1,000 Mcg Tablet) 1,000 mcg PO DAILY [facility] Last Admin: 05/13/24 08:50 Dose: 1,000 mcg Documented By: BERTRAM Furosemide (Furosemide 20 Mg/2 Ml Vial) 20 mg IVPUSH DAILY [facility]; Protocol Gabapentin (Gabapentin 100 Mg Capsule) 100 mg PO TID [facility] Last Admin: 05/13/24 08:50 Dose: 100 mg Documented By: BERTRAM Hydromorphone HCl (Hydromorphone Hcl 0.5 Mg/0.5 Ml Syringe) 0.5 mg IVPUSH Q3H PRN; Protocol PRN Reason: leg pain Iron Sucrose 200 mg/ Iron Sucrose 100 mg/ Sodium Chloride 265 mls @ 176.667 mls/hr IV ONCE ONE Stop: 05/13/24 13:29 Isosorbide Mononitrate (Isosorbide Mononitrate 60 Mg Tab.Er.24h) 60 mg PO DAILY [facility]; Protocol Last Admin: 05/13/24 08:49 Dose: 60 mg Documented By: BERTRAM Lorazepam (Lorazepam 0.5 Mg Tablet) 0.5 mg PO Q4H PRN PRN Reason: Anxiety Last Admin: 05/13/24 08:50 Dose: 0.5 mg Documented By: BERTRAM Magnesium Hydroxide (Milk Of Magnesia 30 Ml Oral.Susp) 30 ml PO DAILY PRN PRN Reason: Constipation Melatonin (Melatonin 3 Mg Tablet) 6 mg PO BEDTIME PRN PRN Reason: Insomnia Last Admin: 05/12/24 20:26 Dose: 6 mg Documented By: LAUREN Metoprolol Tartrate (Metoprolol Tartrate 50 Mg Tablet) 50 mg PO TID [facility]; Protocol Last Admin: 05/13/24 08:50 Dose: 50 mg Documented By: BERTRAM Naloxone HCl (Naloxone Hcl 0.4 Mg/Ml Vial) 0.04 mg IVPUSH Q5M PRN PRN Reason: Excessive sedation or RR < 8 Naloxone HCl (Naloxone Hcl 0.4 Mg/Ml Vial) 0.04 mg IVPUSH Q5M PRN PRN Reason: Excessive sedation or RR < 8 Naloxone HCl (Naloxone Hcl 0.4 Mg/Ml Vial) 0.04 mg IVPUSH Q5M PRN PRN Reason: Excessive sedation or RR < 8 Ondansetron HCl (Ondansetron Hcl 4 Mg/2 Ml Vial) 4 mg IVPUSH Q8H PRN PRN Reason: Nausea and Vomiting Oxycodone HCl (Oxycodone Hcl Immed Release 5 Mg Tablet) 5 mg PO Q4H PRN PRN Reason: Pain, Moderate(Pain Scale 4-6) Last Admin: 05/12/24 05:33 Dose: 5 mg Documented By: AILIN Sodium Chloride (0.9 % Sodium Chloride Flush 3 Ml Syringe) 3 ml IVFLUSH QSHIFT [facility] Last Admin: 05/13/24 08:50 Dose: 3 ml Documented By: BERTRAM Spironolactone (Spironolactone 25 Mg Tablet) 12.5 mg PO DAILY [facility]; Protocol Last Admin: 05/13/24 08:50 Dose: 12.5 mg Documented By: BERTRAM Vitamin D (Cholecalciferol (Vitamin D3) 10 Mcg Tablet) 10 mcg PO DAILY [facility] Last Admin: 05/13/24 08:50 Dose: 10 mcg Documented By: BERTRAM Labs 05/13/24 06:12 05/13/24 06:12 Labs: Laboratory Results - last 24 hr 05/13/24 06:12 MCV 88.5 MCH 27.1 MCHC 30.7 L RDW 17.9 H Plt Count 311 MPV 10.2 Immature Gran % (Auto) 0.2 Neut % (Auto) 66.0 Lymph % (Auto) 19.1 L [place] % (Auto) 13.1 H Eos % (Auto) 1.2 Baso % (Auto) 0.4 Lymph # (Auto) 1.1 L [place] # (Auto) 0.7 Eos # (Auto) 0.1 Baso # (Auto) 0.0 Abs Immat Gran (auto) 0.01 Absolute Neuts (auto) 3.7 Absolute Nucleated RBC 0.000 Nucleated RBC % (auto) 0.0 Anion Gap 11 L Estim Creat Clear Calc 20.7 Estimated GFR 18 Fasting Glucose 102 H Calcium 8.9 Total Bilirubin 0.3 AST 14 ALT < 6 Alkaline Phosphatase 85 Total Protein 5.9 L Albumin 2.6 L Assessment and Plan (1) Anemia: Status: Acute (2) Right leg swelling: Status: Acute (3) CAD (coronary artery disease): Status: Acute Plan Yecenia Easton is 74-year-old woman admitted with: 1.Acute on chronic symptomatic blood loss anemia, improving. Hgb stable (9.2 today) EGD done (05/12): Normal stomach and esophagus. Duodenal polyp. Internal hemorrhoids. No active bleeding. Follow-up pathology results Colonoscopy incomplete due to poor prep - CT enterography can not be performed due to renal funtion. Video capsule endoscopy as an outpatient to be scheduled (pt mentioned she is unabe to swallow capsules). Repeat colonoscopy in 6 months. Iron 200 mg IV while inpatient (consider EPO). Eliquis and aspirin on hold. 2.Elevated troponins in the setting of CAD, trending down (83.9 --> 24.2); likely demand due to anemia -No chest pain. -Cardiology recommended to order Isordil 60 mg p.o. daily -Continue low dose aspirin. 3.Hx of DVT and PE + active worsening swelling and pain of right leg (after reeiving knee injections) likely multifactorial underlying diastolic CHF and CKD. 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 Start treatment with furosemide (pt mentioned Bumex gave her a reaction). Continue spironolactone Pain control with oxycodone, gabapentin, acetaminophen and hydromorphone as needed. 4.HTN Continue clonidine and metoprolol. On Isordil. To consider hydralazine if blood pressure persists elevated. 5. CKD 3 Renal function stable Avoid nephrotoxic agents Nephrology consult -Dr. Anaya, per patient request. 6. HFpEF No respiratory symptoms Continue Coreg Continue furosemide Full Code Eliquis Patient continues to require inpatient hospitalization due to worsening right leg swelling for pain control and evaluation by subspecialty Quality Stroke Does the patient have a stroke diagnosis?: No VTE Prior VTE?: No VTE Risk Level:: Medical - moderate - high VTE Device Contraindication: N/A - Device Ordered VTE Drug Contraindication: Treatment Not Indicated
[2024-05-13] MEDS: Iron Sucrose Complex 200 MG, Iron Sucrose Complex 100 MG in 0.9 % Sodium Chloride 250 ML 176.67 MG IV (12:34)
[2024-05-13] MEDS: Furosemide 20 MG/2 ML VIAL IVPUSH (12:34)
[2024-05-13] MEDS: oxyCODONE HCl Immed Release 5 MG TABLET PO ×2 (12:34→21:47)
[2024-05-13] MEDS: Acetaminophen 325 MG TABLET 975 MG PO ×3 (12:35→21:32)
--- NOTE | 2024-05-13 14:20 | HO.POSTANES ---
Post Anesthesia Evaluation Post Anesthesia Evaluation Date of Service: 05/13/24 Vital Signs: Vital Signs Temp Pulse Resp BP Pulse Ox O2 Del Method 05/13/24 11:58 97.8 F 64 20 160/60 H 97 Room Air 05/13/24 07:43 98.2 F 69 20 166/82 H 97 Room Air 05/13/24 03:25 98.4 F 82 18 174/74 H 96 Room Air Anesthesia: Monitored Mental Status: Awake Pain Control: Satisfactory Nausea/Vomiting: None Hydration: Adequate Anesthesia-Related Issues: No Anes. Related Issues
[2024-05-13] MEDS: Apixaban 2.5 MG TABLET PO (16:19)
--- NOTE | 2024-05-13 16:21 | PM.GIPN ---
Subjective Subjective Date of Service: 05/13/24 Interval History: Pt seen and evaluated at bedside. Endorses frustration and confusion at current clinical course despite this being reviewed by myself and hospital team. Reviewed option of VCE since unable to CTE due to renal function. Pt agreeable but would not be able to take the VCE orally due to c/o subjective pill dysphagia. She was reminded that no obvious stricture or narrowing was noted at the time of EGD but pt remains hesitant to proceed with outpatient VCE. Critical Care Time (minutes): 0 Physical Exam Vital Signs: Vital Signs: Last Vital Signs Temp 98 F 05/13/24 19:48 Pulse 84 05/13/24 19:48 Resp 18 05/13/24 19:48 BP 150/68 H 05/13/24 19:48 Pulse Ox 95 05/13/24 19:48 O2 Del Method Room Air 05/13/24 19:48 BMI result Body Mass Index 26.2 Alert, awake, Ox3 no abd distention, tenderness LE in compression stockings with severe tenderness over knee and calf sharee in R leg Objective Data Labs 05/13/24 06:12 05/13/24 06:12 Labs: Laboratory Results - last 24 hr 05/13/24 06:12 WBC 5.7 RBC 3.39 L Hgb 9.2 L Hct 30.0 L MCV 88.5 MCH 27.1 MCHC 30.7 L RDW 17.9 H Plt Count 311 MPV 10.2 Immature Gran % (Auto) 0.2 Neut % (Auto) 66.0 Lymph % (Auto) 19.1 L [place] % (Auto) 13.1 H Eos % (Auto) 1.2 Baso % (Auto) 0.4 Lymph # (Auto) 1.1 L [place] # (Auto) 0.7 Eos # (Auto) 0.1 Baso # (Auto) 0.0 Abs Immat Gran (auto) 0.01 Absolute Neuts (auto) 3.7 Absolute Nucleated RBC 0.000 Nucleated RBC % (auto) 0.0 Sodium 145 Potassium 4.2 Chloride 115 H Carbon Dioxide 23 Anion Gap 11 L BUN 51 H Creatinine 2.66 H Estim Creat Clear Calc 20.7 Estimated GFR 18 Fasting Glucose 102 H Calcium 8.9 Total Bilirubin 0.3 AST 14 ALT < 6 Alkaline Phosphatase 85 Total Protein 5.9 L Albumin 2.6 L Procedures Date of Service Date of Service: 05/13/24 Progress Note: A&P Assessment and plan (1) Acute on chronic anemia: Status: Acute Plan Small bowel eval pending. No overt bleeding identified on egd/colon. Pt amenable to endoscopic placement of VCE. Will review timing with OR. If unable to get this done, pt aware that outpatient transport arrangements will be made. Plan: - OK for anticoagulation. Pls avoid DOACs due to long washout period due to underlying CKD. Lovenox or heparin is ok as they can be relatively quickly interrupted in case of rebleeding. - EGD guided VCE placement to be booked. Will review timing either inpatient vs early outpatient. 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 Reviewed with hospitalist Dr Aguero over the phone Time Spent With Patient Time: Total time managing care of this patient today ____ minutes. Quality Stroke Does the patient have a stroke diagnosis?: No VTE Prior VTE?: No VTE Risk Level:: Medical - moderate - high VTE Device Contraindication: N/A - Device Ordered VTE Drug Contraindication: Treatment Not Indicated
--- NOTE | 2024-05-13 20:30 | P.CONOP_ITS ---
History of Present Illness HPI Consult date: 05/13/24 Chief complaint: Anemia, chest pain, elevated BP Narrative: 74 yo female with ongoing right knee pain. She has severe right knee oa, h/o injections and gel without significant relief. She sees rheumatology for right knee oa. She had one episode of gout. She states she has stiffness in the knee and pain with ambulation Denies fever or chills. Review of Systems 2 Review of Systems: Yes all other systems are reviewed and are negative [facility] Past Medical History Medical History Chronic kidney disease Anemia in chronic kidney disease Surgical History Surgical History History of partial hysterectomy Social History Social History Household Members: Family Housing: Apartment Do you presently have visiting nurse or other home services: No Alcohol intake: never Patient Tobacco Use Status: Former Tobacco user service: No Meds Allergies Allergy/AdvReac Type Severity Reaction Status Date / Time amoxicillin Allergy Unknown Unknown Verified 05/08/24 12:53 hydrochlorothiazide Allergy Unknown Unknown Verified 05/08/24 12:53 morphine Allergy Unknown Nausea Verified 05/09/24 00:00 codiene Allergy Intermediate Nausea Uncoded 05/08/24 12:53 Chase inhibitors Allergy Unknown Unknown Uncoded 05/08/24 12:53 latex Allergy Unknown rash Uncoded 05/08/24 12:53 Active Medications: Current Medications Acetaminophen (Acetaminophen 325 Mg Tablet) 975 mg PO QID [facility] Last Admin: 05/13/24 16:20 Dose: 975 mg Apixaban (Apixaban 2.5 Mg Tablet) 2.5 mg PO BID [facility] Last Admin: 05/13/24 16:19 Dose: 2.5 mg Ascorbic Acid (Ascorbic Acid 500 Mg Tablet) 1,000 mg PO BEDTIME [facility] Last Admin: 05/12/24 20:26 Dose: 1,000 mg Aspirin (Aspirin 81 Mg Tab.Chew) 81 mg PO DAILY [facility] Calcium Carbonate (Calcium Carbonate 750 Mg Tab.Chew) 750 mg PO Q4H PRN PRN Reason: Heartburn Clonidine HCl (Clonidine Hcl 0.1 Mg Tablet) 0.1 mg PO TID [facility]; Protocol Last Admin: 05/13/24 16:19 Dose: 0.1 mg Cyanocobalamin (Cyanocobalamin (Vitamin B-12) 1,000 Mcg Tablet) 1,000 mcg PO DAILY [facility] Last Admin: 05/13/24 08:50 Dose: 1,000 mcg Furosemide (Furosemide 20 Mg/2 Ml Vial) 20 mg IVPUSH DAILY [facility]; Protocol Last Admin: 05/13/24 12:34 Dose: 20 mg Gabapentin (Gabapentin 100 Mg Capsule) 100 mg PO TID [facility] Last Admin: 05/13/24 16:19 Dose: 100 mg Hydromorphone HCl (Hydromorphone Hcl 0.5 Mg/0.5 Ml Syringe) 0.5 mg IVPUSH Q3H PRN; Protocol PRN Reason: leg pain Isosorbide Mononitrate (Isosorbide Mononitrate 60 Mg Tab.Er.24h) 60 mg PO DAILY [facility]; Protocol Last Admin: 05/13/24 08:49 Dose: 60 mg Lorazepam (Lorazepam 0.5 Mg Tablet) 0.5 mg PO Q4H PRN PRN Reason: Anxiety Last Admin: 05/13/24 16:19 Dose: 0.5 mg Magnesium Hydroxide (Milk Of Magnesia 30 Ml Oral.Susp) 30 ml PO DAILY PRN PRN Reason: Constipation Melatonin (Melatonin 3 Mg Tablet) 6 mg PO BEDTIME PRN PRN Reason: Insomnia Last Admin: 05/12/24 20:26 Dose: 6 mg Metoprolol Tartrate (Metoprolol Tartrate 50 Mg Tablet) 50 mg PO TID [facility]; Protocol Last Admin: 05/13/24 16:19 Dose: 50 mg Naloxone HCl (Naloxone Hcl 0.4 Mg/Ml Vial) 0.04 mg IVPUSH Q5M PRN PRN Reason: Excessive sedation or RR < 8 Naloxone HCl (Naloxone Hcl 0.4 Mg/Ml Vial) 0.04 mg IVPUSH Q5M PRN PRN Reason: Excessive sedation or RR < 8 Naloxone HCl (Naloxone Hcl 0.4 Mg/Ml Vial) 0.04 mg IVPUSH Q5M PRN PRN Reason: Excessive sedation or RR < 8 Ondansetron HCl (Ondansetron Hcl 4 Mg/2 Ml Vial) 4 mg IVPUSH Q8H PRN PRN Reason: Nausea and Vomiting Oxycodone HCl (Oxycodone Hcl Immed Release 5 Mg Tablet) 5 mg PO Q4H PRN PRN Reason: Pain, Moderate(Pain Scale 4-6) Last Admin: 05/13/24 12:34 Dose: 5 mg Pantoprazole Sodium (Pantoprazole Sodium 40 Mg/10 Ml Vial) 40 mg IVPUSH DAILY@0630 [facility] Sodium Chloride (0.9 % Sodium Chloride Flush 3 Ml Syringe) 3 ml IVFLUSH QSHIFT [facility] Last Admin: 05/13/24 16:20 Dose: 3 ml Spironolactone (Spironolactone 25 Mg Tablet) 12.5 mg PO DAILY [facility]; Protocol Last Admin: 05/13/24 08:50 Dose: 12.5 mg Vitamin D (Cholecalciferol (Vitamin D3) 10 Mcg Tablet) 10 mcg PO DAILY [facility] Last Admin: 05/13/24 08:50 Dose: 10 mcg Home Medications ?Medication ?Instructions ?Recorded ?Confirmed ?Last Taken ?Type apixaban 2.5 mg tablet (Eliquis) 2.5 mg PO BID 01/30/23 05/08/24 05/08/24 History spironolactone 25 mg tablet 12.5 mg PO DAILY 04/04/23 05/08/24 05/08/24 History ascorbate calcium (vitamin C) 500 1 g PO BEDTIME 02/27/24 05/08/24 05/08/24 History mg tablet cholecalciferol (vitamin D3) 10 10 mcg PO DAILY 02/27/24 05/08/24 05/08/24 History mcg (400 unit) capsule mecobalamin (vitamin B12) 1,000 1,000 mcg PO DAILY 02/27/24 05/08/24 05/08/24 History mcg chewable tablet acetaminophen 500 mg tablet 1,500 mg PO DAILY PRN Pain 05/08/24 05/08/24 Unknown History aspirin 325 mg tablet 325 - 650 mg PO DAILY PRN Pain 05/08/24 05/08/24 Unknown History bumetanide 1 mg tablet 1 mg PO DAILY PRN Fluid Retention 05/08/24 05/08/24 Unknown History clonidine HCl 0.1 mg tablet 0.1 mg PO TID 05/08/24 05/08/24 05/08/24 History metoprolol tartrate 50 mg tablet 50 mg PO TID 05/08/24 05/08/24 05/08/24 History Physical Exam 2 Vital Signs: Vital Signs: Last Vital Signs Temp 98 F 05/13/24 19:48 Pulse 84 05/13/24 19:48 Resp 18 05/13/24 19:48 BP 150/68 H 05/13/24 19:48 Pulse Ox 95 05/13/24 19:48 O2 Del Method Room Air 05/13/24 19:48 BMI result Body Mass Index 26.2 Const: General: cooperative, healthy appearing and comfortable Extrem: Other: Right knee skin intact, no erythema, no tenderness to palpation. Moderate joint effusion present. She can extend the knee and initiate SLR Flexion limited at this time as she is in recliner and has discomfort with bending calf supple non tender NVI Results Labs 05/13/24 06:12 05/13/24 06:12 Labs: Abnormal lab results 05/13/24 Range/Units 06:12 RBC 3.39 L (4.20-5.50) X10*6/uL Hgb 9.2 L (12.0-16.0) g/dl Hct 30.0 L (37.0-47.0) % MCHC 30.7 L (31.0-35.0) g/dl RDW 17.9 H (11.0-16.0) % Lymph % (Auto) 19.1 L (20-40) % [facility] % (Auto) 13.1 H (2-11) % Lymph # (Auto) 1.1 L (1.2-4.9) X10*3/uL Chloride 115 H (96-108) mmol/L Anion Gap 11 L (12-20) BUN 51 H (9-16) mg/dL Creatinine 2.66 H (0.5-1.4) mg/dL Fasting Glucose 102 H (60-99) mg/dL Total Protein 5.9 L (6.5-8.0) g/dL Albumin 2.6 L (3.5-5.0) g/dL H & H 05/08/24 05/09/24 05/10/24 Range/Units 12:59 04:25 05:59 Hgb 5.2 L* 7.2 L D 9.0 L D (12.0-16.0) g/dl Hct 18.9 L* 24.3 L D 29.0 L (37.0-47.0) % 05/11/24 05/13/24 Range/Units 07:43 06:12 Hgb 10.2 L 9.2 L (12.0-16.0) g/dl Hct 34.0 L 30.0 L (37.0-47.0) % Coagulation 05/08/24 Range/Units 12:59 INR 1.4 H (0.9-1.1) All other labs normal. Diagnostic results Knee x-ray: image reviewed (severe right knee oa ) Assessment and Plan (1) Osteoarthritis of right knee: Qualifiers: Osteoarthritis type: primary Qualified Code(s): M17.11 - Unilateral primary osteoarthritis, right knee Status: Acute Plan No evidence of septic joint Discuss asp/inj which she would like to hold off on today Discussed NSAIDs/celebrex which she is unable to take due to CKD Discussed PT and activity modifications Compression / Ice She [place] [facility] for further treatment as needed. Procedures Date of Service Date of Service: 05/13/24
[2024-05-13] MEDS: Ascorbic Acid 500 MG TABLET 1000 MG PO (21:31)
[2024-05-14] VITALS (7 sets, daily range): BP systolic 122–178; BP diastolic 54–94; PULSE 62–88; RESP 16–18; TEMP 36.1–37.1; O2SAT 94–98
--- NOTE | 2024-05-14 | ECG_ITS ---
Test Reason : Bradycardia Blood Pressure : */* mmHG Vent. Rate : 63 BPM Atrial Rate : 63 BPM P-R Int : 140 ms QRS Dur : 82 ms QT Int : 458 ms P-R-T Axes : 51 5 220 degrees QTcB Int : 468 ms Normal sinus rhythm ST & T wave abnormality, consider inferior ischemia ST & T wave abnormality, consider anterolateral ischemia Prolonged QT Abnormal ECG When compared to the previous EKG of No significant changes seen Referred By: Ciaran Aguero Electronically Signed By: ALLISON CLAROS MD
[2024-05-14] MEDS: Pantoprazole Sodium 40 MG/10 ML VIAL IVPUSH (06:26)
[2024-05-14 08:30] LABS: MANUAL DIFF FLAG NO
[2024-05-14] MEDS: Metoprolol Tartrate 50 MG TABLET PO (08:30)
[2024-05-14] MEDS: Aspirin 81 MG TAB.CHEW PO (08:30)
[2024-05-14] MEDS: Acetaminophen 325 MG TABLET 975 MG PO ×4 (08:30→21:35)
[2024-05-14] MEDS: Isosorbide Mononitrate 60 MG TAB.ER.24H PO (08:30)
[2024-05-14] MEDS: Cholecalciferol (Vitamin D3) 10 MCG TABLET PO (08:31)
[2024-05-14] MEDS: cloNIDine HCL 0.1 MG TABLET PO (08:31)
[2024-05-14] MEDS: Gabapentin 100 MG CAPSULE PO ×3 (08:31→21:36)
[2024-05-14] MEDS: Apixaban 2.5 MG TABLET PO ×2 (08:31→21:36)
[2024-05-14] MEDS: Spironolactone 25 MG TABLET 12.5 MG PO (08:31)
[2024-05-14] MEDS: Cyanocobalamin (Vitamin B-12) 1,000 MCG TABLET 1000 MCG PO (08:33)
[2024-05-14] MEDS: Furosemide 20 MG/2 ML VIAL IVPUSH (08:33)
[2024-05-14 08:37] LABS: Basophils Percent Auto 0.6 % (0-2); Eosinophils Absolute Auto 0.1 X10*3/uL (0.0-0.4); Eosinophils Percent Auto 1.4 % (0-4); Hematocrit 30.5 % (37.0-47.0); Hemoglobin 9.2 g/dl (12.0-16.0); Imm Gran Abs Auto 0.04 X10*3/uL (0.00-0.03); Imm Gran Pct Auto 0.6 % (0.0-0.4); Lymphocytes Percent Auto 14.3 % (20-40); Mean Corpuscular HGB Conc 30.2 g/dl (31.0-35.0); Mean Corpuscular Hemoglobin 26.9 pg (27.0-33.0); Mean Corpuscular Volume 89.2 fL (80.0-98.0); Monocytes Absolute Auto 0.9 X10*3/uL (0.1-1.2); Monocytes Percent Auto 11.8 % (2-11); Neutrophils Absolute Auto 5.2 x10*3/uL (2.0-8.3); Neutrophils Percent Auto 71.3 % (45-73); Platelet Count 302 X10*3/uL (160-400); Red Blood Count 3.42 X10*6/uL (4.20-5.50); Red Cell Distribution Width 17.8 % (11.0-16.0); White Blood Count 7.2 X10*3/uL (4.8-10.8)
--- NOTE | 2024-05-14 08:42 | PC.NURSE ---
pt refusing fall precautions and bedside assistance with care and ambulating. pt educated and continued to refuse
[2024-05-14 08:51] LABS: Anion Gap 11 (12-20); Blood Urea Nitrogen 48 mg/dL (9-16); Carbon Dioxide 25 mmol/L (22-29); Chloride 114 mmol/L (96-108); Creatinine Clr Calc Pharmacy 21.3; Estimated Glomerular Filt Rate 18; Glucose Random 107 mg/dL (60-115); Potassium 4.4 mmol/L (3.3-5.1); Sodium 146 mmol/L (135-145)
--- NOTE | 2024-05-14 10:04 | PC.NURSE ---
pt had 3 sec pause then rizwana down to 30s while sitting, asymptomatic, md informed.
--- NOTE | 2024-05-14 10:08 | ECG_ITS ---
Test Reason : 3 sec pause and rizwana - acute Blood Pressure : */* mmHG Vent. Rate : 62 BPM Atrial Rate : 62 BPM P-R Int : 140 ms QRS Dur : 82 ms QT Int : 460 ms P-R-T Axes : 44 6 219 degrees QTcB Int : 466 ms Normal sinus rhythm ST & T wave abnormality, consider inferior ischemia ST & T wave abnormality, consider anterolateral ischemia Prolonged QT Abnormal ECG When compared to the previous EKG of T wave inversion now evident in Inferolateral leads Referred By: Ciaran Aguero Electronically Signed By: ALLISON CLAROS MD
--- NOTE | 2024-05-14 10:14 | P.PNIM_ITS ---
Subjective Subjective Date of Service: 05/14/24 Interval History: Continue with severe right leg pain and right knee swelling. 10:05 AM - had a transitory event of bradycardia, 30s Review of Systems All 12 systems were reviewed and normal except as noted in HPI. Physical Exam 2 Vital Signs: Vital Signs: Last Vital Signs Temp 97.8 F 05/14/24 06:56 Pulse 71 05/14/24 06:56 Resp 16 05/14/24 06:56 BP 170/84 H 05/14/24 06:56 Pulse Ox 94 05/14/24 06:56 O2 Del Method Room Air 05/14/24 04:00 BMI result Body Mass Index 26.2 Yecenia Easton is 74-year-old woman admitted with: Acute on chronic symptomatic blood loss anemia, improving. Hgb stable (9.2 today) EGD done (05/12): Normal stomach and esophagus. Duodenal polyp. Internal hemorrhoids. No active bleeding. Follow-up pathology results Colonoscopy incomplete due to poor prep - CT enterography can not be performed due to renal funtion. Video capsule endoscopy as an outpatient to be scheduled (pt mentioned she is unable to swallow capsules so will need capsule insertion via endoscopy per Dr. Spear). Repeat colonoscopy in 6 months. Iron 200 mg IV while inpatient (consider EPO). Elevated troponins in the setting of CAD, trending down (83.9 --> 24.2); likely demand due to anemia No chest pain. Cardiology recommended to order Isordil 60 mg p.o. daily Continue low dose aspirin. Hx of DVT and PE + active worsening swelling and pain of right leg (after receiving intra-articular injections) multifactorial underlying diastolic CHF and CKD + + right knee effusion likely. 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 Continue furosemide spironolactone. Pain control with oxycodone, gabapentin, acetaminophen and hydromorphone as needed. Elevate extremities, ice, compression HTN Continue spironolactone, furosemide and Isordil. Patient refuses treatment with hydralazine as EKG her about reaction. Event of bradycardia this morning, 30s. Metoprolol and clonidine on hold. To consider restart metoprolol only for now if blood pressure increases. CKD 3 Renal function stable Avoid nephrotoxic agents Nephrology, Dr. Anaya evaluated patient today. HFpEF No respiratory symptoms Continue metoprolol when able. Continue furosemide Full Code Eliquis Patient continues to require inpatient hospitalization due to worsening right leg swelling for pain control and evaluation by subspecialty Objective Data Active Medications Acetaminophen (Acetaminophen 325 Mg Tablet) 975 mg PO QID [facility] Last Admin: 05/14/24 08:30 Dose: 975 mg Documented By: JORDYN Apixaban (Apixaban 2.5 Mg Tablet) 2.5 mg PO BID [facility] Last Admin: 05/14/24 08:31 Dose: 2.5 mg Documented By: JORDYN Ascorbic Acid (Ascorbic Acid 500 Mg Tablet) 1,000 mg PO BEDTIME [facility] Last Admin: 05/13/24 21:31 Dose: 1,000 mg Documented By: YUNIOR Aspirin (Aspirin 81 Mg Tab.Chew) 81 mg PO DAILY [facility] Last Admin: 05/14/24 08:30 Dose: 81 mg Documented By: JORDYN Calcium Carbonate (Calcium Carbonate 750 Mg Tab.Chew) 750 mg PO Q4H PRN PRN Reason: Heartburn Clonidine HCl (Clonidine Hcl 0.1 Mg Tablet) 0.1 mg PO TID [facility]; Protocol Last Admin: 05/14/24 08:31 Dose: 0.1 mg Documented By: JORDYN Cyanocobalamin (Cyanocobalamin (Vitamin B-12) 1,000 Mcg Tablet) 1,000 mcg PO DAILY [facility] Last Admin: 05/14/24 08:33 Dose: 1,000 mcg Documented By: JORDYN Furosemide (Furosemide 20 Mg/2 Ml Vial) 20 mg IVPUSH DAILY [facility]; Protocol Last Admin: 05/14/24 08:33 Dose: 20 mg Documented By: JORDYN Gabapentin (Gabapentin 100 Mg Capsule) 100 mg PO TID [facility] Last Admin: 05/14/24 08:31 Dose: 100 mg Documented By: JORDYN Hydromorphone HCl (Hydromorphone Hcl 0.5 Mg/0.5 Ml Syringe) 0.5 mg IVPUSH Q3H PRN; Protocol PRN Reason: leg pain Isosorbide Mononitrate (Isosorbide Mononitrate 60 Mg Tab.Er.24h) 60 mg PO DAILY [facility]; Protocol Last Admin: 05/14/24 08:30 Dose: 60 mg Documented By: JORDYN Lorazepam (Lorazepam 0.5 Mg Tablet) 0.5 mg PO Q4H PRN PRN Reason: Anxiety Last Admin: 05/13/24 16:19 Dose: 0.5 mg Documented By: BERTRAM Magnesium Hydroxide (Milk Of Magnesia 30 Ml Oral.Susp) 30 ml PO DAILY PRN PRN Reason: Constipation Melatonin (Melatonin 3 Mg Tablet) 6 mg PO BEDTIME PRN PRN Reason: Insomnia Last Admin: 05/12/24 20:26 Dose: 6 mg Documented By: LAUREN Metoprolol Tartrate (Metoprolol Tartrate 50 Mg Tablet) 50 mg PO TID [facility]; Protocol Last Admin: 05/14/24 08:30 Dose: 50 mg Documented By: JORDYN Naloxone HCl (Naloxone Hcl 0.4 Mg/Ml Vial) 0.04 mg IVPUSH Q5M PRN PRN Reason: Excessive sedation or RR < 8 Naloxone HCl (Naloxone Hcl 0.4 Mg/Ml Vial) 0.04 mg IVPUSH Q5M PRN PRN Reason: Excessive sedation or RR < 8 Naloxone HCl (Naloxone Hcl 0.4 Mg/Ml Vial) 0.04 mg IVPUSH Q5M PRN PRN Reason: Excessive sedation or RR < 8 Ondansetron HCl (Ondansetron Hcl 4 Mg/2 Ml Vial) 4 mg IVPUSH Q8H PRN PRN Reason: Nausea and Vomiting Oxycodone HCl (Oxycodone Hcl Immed Release 5 Mg Tablet) 5 mg PO Q4H PRN PRN Reason: Pain, Moderate(Pain Scale 4-6) Last Admin: 05/13/24 21:47 Dose: 5 mg Documented By: YUNIOR Pantoprazole Sodium (Pantoprazole Sodium 40 Mg/10 Ml Vial) 40 mg IVPUSH DAILY@0630 [facility] Last Admin: 05/14/24 06:26 Dose: 40 mg Documented By: YUNIOR Sodium Chloride (0.9 % Sodium Chloride Flush 3 Ml Syringe) 3 ml IVFLUSH QSHIFT [facility] Last Admin: 05/14/24 07:15 Dose: Not Given Documented By: JORDYN Non-Admin Reason: Previously Administered Spironolactone (Spironolactone 25 Mg Tablet) 12.5 mg PO DAILY [facility]; Protocol Last Admin: 05/14/24 08:31 Dose: 12.5 mg Documented By: JORDYN Vitamin D (Cholecalciferol (Vitamin D3) 10 Mcg Tablet) 10 mcg PO DAILY [facility] Last Admin: 05/14/24 08:31 Dose: 10 mcg Documented By: JORDYN Labs 05/14/24 07:26 05/14/24 07:26 Labs: Laboratory Results - last 24 hr 05/14/24 07:26 MCV 89.2 MCH 26.9 L MCHC 30.2 L RDW 17.8 H Plt Count 302 MPV 10.0 Immature Gran % (Auto) 0.6 H Neut % (Auto) 71.3 Lymph % (Auto) 14.3 L [place] % (Auto) 11.8 H Eos % (Auto) 1.4 Baso % (Auto) 0.6 Lymph # (Auto) 1.0 L [place] # (Auto) 0.9 Eos # (Auto) 0.1 Baso # (Auto) 0.0 Abs Immat Gran (auto) 0.04 H Absolute Neuts (auto) 5.2 Absolute Nucleated RBC 0.000 Nucleated RBC % (auto) 0.0 Anion Gap 11 L Estim Creat Clear Calc 21.3 Estimated GFR 18 Random Glucose 107 Calcium 9.0 Quality Stroke Does the patient have a stroke diagnosis?: No VTE Prior VTE?: No VTE Risk Level:: Medical - moderate - high VTE Device Contraindication: N/A - Device Ordered VTE Drug Contraindication: Treatment Not Indicated
--- NOTE | 2024-05-14 11:18 | MHC.CM.PN ---
Per MD rounds patient not medically cleared for dc. CM will continue to follow.
--- NOTE | 2024-05-14 11:49 | P.PCNOP_ITS ---
Brief Operative Note Date of procedure: 05/14/24 Pre-op diagnosis: right knee osteoarthritis Procedure: Right knee aspiration attempted. 5cc of 2% lidocaine administered to the anterolateral aspect of the knee prior to aspiration. Scant amount of yellow hazy fluid obtained. Unable to aspirate any additional fluid Anesthesia: local (5cc 2% plain lido ) Surgeon: Minesh Stewart Chairman Emeritus: Cely Kaur Estimated blood loss (mL): 0 Pathology: none sent Condition: stable Disposition: floor
--- NOTE | 2024-05-14 11:52 | PM.PNORT ---
Subjective Subjective Date of Service: 05/14/24 Interval history: Patient laying in bed comfortably C/O right knee pain and swelling Interested in knee aspiration Physical Exam Vital Signs: Vital Signs: Last Vital Signs Temp 97.7 F 05/14/24 10:27 Pulse 62 05/14/24 10:27 Resp 16 05/14/24 10:27 BP 122/54 L 05/14/24 10:27 Pulse Ox 96 05/14/24 10:27 O2 Del Method Room Air 05/14/24 10:27 BMI result Body Mass Index 26.2 Const: General: cooperative, healthy appearing and comfortable Extrem: Other: Right knee skin intact, no erythema, no tenderness to palpation. Moderate joint effusion present. She can extend the knee and initiate SLR Flexion limited at this time as she is in recliner and has discomfort with bending calf supple non tender NVI Procedures Date of Service Date of Service: 05/14/24 Progress Note: A&P Assessment and plan (1) Knee pain, right: Status: Acute (2) Osteoarthritis of right knee: Status: Acute Plan Right knee aspiration attempted. 5cc of 2% lidocaine administered to the anterolateral aspect of the knee prior to aspiration. Scant amount of yellow hazy fluid obtained. Unable to aspirate any additional fluid Recommended that patient f/u with pain management out patient as she is not interested in TKA No additional acute orthopedic intervention warranted at this time Time Spent With Patient Time: Total time managing care of this patient today ____ minutes. Quality Stroke Does the patient have a stroke diagnosis?: No VTE Prior VTE?: No VTE Risk Level:: Medical - moderate - high VTE Device Contraindication: N/A - Device Ordered VTE Drug Contraindication: Treatment Not Indicated
[2024-05-14] MEDS: oxyCODONE HCl Immed Release 5 MG TABLET PO ×2 (12:26→17:51)
--- NOTE | 2024-05-14 13:58 | P.PNGI_ITS ---
Subjective Subjective Date of Service: 05/14/24 Interval History: Seen at bedside. Reports no abd pain, N,V. Declined lovenox shots so back on eliquis. No rebleeding at this time. Critical Care Time (minutes): 0 Physical Exam 2 Vital Signs: Vital Signs: Last Vital Signs Temp 97.7 F 05/14/24 10:27 Pulse 62 05/14/24 10:27 Resp 16 05/14/24 10:27 BP 122/54 L 05/14/24 10:27 Pulse Ox 96 05/14/24 10:27 O2 Del Method Room Air 05/14/24 10:27 BMI result Body Mass Index 26.2 Alert, awake, Ox3 no abd distention, tenderness LE in compression stockings with severe tenderness over knee and calf sharee in R leg Objective Data Labs 05/14/24 07:26 05/14/24 07:26 Labs: Laboratory Results - last 24 hr 05/14/24 07:26 WBC 7.2 RBC 3.42 L Hgb 9.2 L Hct 30.5 L MCV 89.2 MCH 26.9 L MCHC 30.2 L RDW 17.8 H Plt Count 302 MPV 10.0 Immature Gran % (Auto) 0.6 H Neut % (Auto) 71.3 Lymph % (Auto) 14.3 L [place] % (Auto) 11.8 H Eos % (Auto) 1.4 Baso % (Auto) 0.6 Lymph # (Auto) 1.0 L [place] # (Auto) 0.9 Eos # (Auto) 0.1 Baso # (Auto) 0.0 Abs Immat Gran (auto) 0.04 H Absolute Neuts (auto) 5.2 Absolute Nucleated RBC 0.000 Nucleated RBC % (auto) 0.0 Sodium 146 H Potassium 4.4 Chloride 114 H Carbon Dioxide 25 Anion Gap 11 L BUN 48 H Creatinine 2.57 H Estim Creat Clear Calc 21.3 Estimated GFR 18 Random Glucose 107 Calcium 9.0 Procedures Date of Service Date of Service: 05/14/24 Progress Note: A&P Assessment and plan (1) Acute on chronic anemia: Status: Acute Plan Small bowel eval pending. No overt bleeding identified on egd/colon. CBC has remained stable. Pt amenable to endoscopic placement of VCE. This is tentatively booked for 4/. Will also schedule repeat colonoscopy for the same time to minimize visits for procedures. Transport for the procedure has been arranged. She is aware to HOLD eliquis x 4 days prior She already has PEG prep at home. Time Spent With Patient Time: Total time managing care of this patient today ____ minutes. Quality Stroke Does the patient have a stroke diagnosis?: No VTE Prior VTE?: No VTE Risk Level:: Medical - moderate - high VTE Device Contraindication: N/A - Device Ordered VTE Drug Contraindication: Treatment Not Indicated
--- NOTE | 2024-05-14 18:59 | PM.CNNEP ---
History of Present Illness Reason for Consult Consult date: 05/14/24 Reason for consult: JHONY Chief Complaint Chief complaint: Anemia, chest pain, elevated BP History of Present Illness Narrative: 74-year-old female with CKD 3 B, ?CAD s/p stenting 2019, hx of DVT with pulmonary embolism 2017 on Eliquis, HTN, osteoarthritis, presented to the ER with?chest pain and dizziness. Also experienced associated SOB, difficulty breathing, increasing tiredness and fatigue. Denies any nausea, vomiting, cough. Stool has been regular and brown-colored. Denies melena or hematochezia. Reports a positive Cologuard test 3-4 years ago but did not follow-up with colonoscopy due to transportation issues. Pt also notes that she has osteoarthritis in right knee and reports lower leg edema secondary to cortisone and gel injections, as well as recent prednisone use. Pt also reports recent unintentional weight loss of around 25 lb. Pt denies abdominal pain.In the ED pt was hypertensive up to 165/64, vitals otherwise stable and WNL. Labs were significant for H&H 5.2/18.9, initial troponin 24.0, BNP 368, and albumin 3.0 no leukocytosis. No significant electrolyte abnormalities. Creatinine 2.27, around baseline. Hepatic function WNL. TSH WNL. Tested negative for flu, COVID, RSV. UA negative for UTI. CXR showed cardiomegaly with clear lungs. EKG demonstrated normal sinus rhythm with sinus arrhythmia, but no acute ischemic changes from prior. Pt was transfused 1 unit PRBCs in the ED. Pt was admitted to the hospital for treatment and further evaluation of acute symptomatic blood loss anemia concerning for GI bleed.She underwent endoscopy and is getting further work up and management. Nephrology has been consulted to assist in her clinical care during her current hospital stay Review of Systems Review of Systems Yes all other systems are reviewed and are negative ON LICENSE OF [facility] Past Medical History Medical History Chronic kidney disease Anemia in chronic kidney disease Surgical History Surgical History History of partial hysterectomy Social History Social History Household Members: Family Housing: Apartment Do you presently have visiting nurse or other home services: No Alcohol intake: never Patient Tobacco Use Status: Former Tobacco user service: No Meds Allergies Allergy/AdvReac Type Severity Reaction Status Date / Time amoxicillin Allergy Unknown Unknown Verified 05/08/24 12:53 hydrochlorothiazide Allergy Unknown Unknown Verified 05/08/24 12:53 morphine Allergy Unknown Nausea Verified 05/09/24 00:00 codiene Allergy Intermediate Nausea Uncoded 05/08/24 12:53 Chase inhibitors Allergy Unknown Unknown Uncoded 05/08/24 12:53 latex Allergy Unknown rash Uncoded 05/08/24 12:53 Active Medications: Current Medications Acetaminophen (Acetaminophen 325 Mg Tablet) 975 mg PO QID [facility] Last Admin: 05/14/24 17:53 Dose: 975 mg Apixaban (Apixaban 2.5 Mg Tablet) 2.5 mg PO BID [facility] Last Admin: 05/14/24 08:31 Dose: 2.5 mg Ascorbic Acid (Ascorbic Acid 500 Mg Tablet) 1,000 mg PO BEDTIME [facility] Last Admin: 05/13/24 21:31 Dose: 1,000 mg Aspirin (Aspirin 81 Mg Tab.Chew) 81 mg PO DAILY [facility] Last Admin: 05/14/24 08:30 Dose: 81 mg Calcium Carbonate (Calcium Carbonate 750 Mg Tab.Chew) 750 mg PO Q4H PRN PRN Reason: Heartburn Clonidine HCl (Clonidine Hcl 0.1 Mg Tablet) 0.1 mg PO TID [facility]; Protocol Last Admin: 05/14/24 08:31 Dose: 0.1 mg Cyanocobalamin (Cyanocobalamin (Vitamin B-12) 1,000 Mcg Tablet) 1,000 mcg PO DAILY [facility] Last Admin: 05/14/24 08:33 Dose: 1,000 mcg Furosemide (Furosemide 20 Mg/2 Ml Vial) 20 mg IVPUSH DAILY [facility]; Protocol Last Admin: 05/14/24 08:33 Dose: 20 mg Gabapentin (Gabapentin 100 Mg Capsule) 100 mg PO TID [facility] Last Admin: 05/14/24 15:24 Dose: 100 mg Hydromorphone HCl (Hydromorphone Hcl 0.5 Mg/0.5 Ml Syringe) 0.5 mg IVPUSH Q3H PRN; Protocol PRN Reason: leg pain Isosorbide Mononitrate (Isosorbide Mononitrate 60 Mg Tab.Er.24h) 60 mg PO DAILY [facility]; Protocol Last Admin: 05/14/24 08:30 Dose: 60 mg Magnesium Hydroxide (Milk Of Magnesia 30 Ml Oral.Susp) 30 ml PO DAILY PRN PRN Reason: Constipation Melatonin (Melatonin 3 Mg Tablet) 6 mg PO BEDTIME PRN PRN Reason: Insomnia Last Admin: 05/12/24 20:26 Dose: 6 mg Metoprolol Tartrate (Metoprolol Tartrate 50 Mg Tablet) 50 mg PO TID [facility]; Protocol Last Admin: 05/14/24 08:30 Dose: 50 mg Naloxone HCl (Naloxone Hcl 0.4 Mg/Ml Vial) 0.04 mg IVPUSH Q5M PRN PRN Reason: Excessive sedation or RR < 8 Naloxone HCl (Naloxone Hcl 0.4 Mg/Ml Vial) 0.04 mg IVPUSH Q5M PRN PRN Reason: Excessive sedation or RR < 8 Naloxone HCl (Naloxone Hcl 0.4 Mg/Ml Vial) 0.04 mg IVPUSH Q5M PRN PRN Reason: Excessive sedation or RR < 8 Ondansetron HCl (Ondansetron Hcl 4 Mg/2 Ml Vial) 4 mg IVPUSH Q8H PRN PRN Reason: Nausea and Vomiting Oxycodone HCl (Oxycodone Hcl Immed Release 5 Mg Tablet) 5 mg PO Q4H PRN PRN Reason: Pain, Moderate(Pain Scale 4-6) Last Admin: 05/14/24 17:51 Dose: 5 mg Pantoprazole Sodium (Pantoprazole Sodium 40 Mg/10 Ml Vial) 40 mg IVPUSH DAILY@0630 [facility] Last Admin: 05/14/24 06:26 Dose: 40 mg Sodium Chloride (0.9 % Sodium Chloride Flush 3 Ml Syringe) 3 ml IVFLUSH QSHIFT [facility] Last Admin: 05/14/24 13:33 Dose: Not Given Spironolactone (Spironolactone 25 Mg Tablet) 12.5 mg PO DAILY [facility]; Protocol Last Admin: 05/14/24 08:31 Dose: 12.5 mg Vitamin D (Cholecalciferol (Vitamin D3) 10 Mcg Tablet) 10 mcg PO DAILY [facility] Last Admin: 05/14/24 08:31 Dose: 10 mcg Home Medications ?Medication ?Instructions ?Recorded ?Confirmed ?Last Taken ?Type apixaban 2.5 mg tablet (Eliquis) 2.5 mg PO BID 01/30/23 05/08/24 05/08/24 History spironolactone 25 mg tablet 12.5 mg PO DAILY 04/04/23 05/08/24 05/08/24 History ascorbate calcium (vitamin C) 500 1 g PO BEDTIME 02/27/24 05/08/24 05/08/24 History mg tablet cholecalciferol (vitamin D3) 10 10 mcg PO DAILY 02/27/24 05/08/24 05/08/24 History mcg (400 unit) capsule mecobalamin (vitamin B12) 1,000 1,000 mcg PO DAILY 02/27/24 05/08/24 05/08/24 History mcg chewable tablet acetaminophen 500 mg tablet 1,500 mg PO DAILY PRN Pain 05/08/24 05/08/24 Unknown History aspirin 325 mg tablet 325 - 650 mg PO DAILY PRN Pain 05/08/24 05/08/24 Unknown History bumetanide 1 mg tablet 1 mg PO DAILY PRN Fluid Retention 05/08/24 05/08/24 Unknown History clonidine HCl 0.1 mg tablet 0.1 mg PO TID 05/08/24 05/08/24 05/08/24 History metoprolol tartrate 50 mg tablet 50 mg PO TID 05/08/24 05/08/24 05/08/24 History Physical Exam Vital Signs: Last Vital Signs Temp 98.8 F 05/14/24 15:07 Pulse 76 05/14/24 15:07 Resp 18 05/14/24 15:07 BP 150/58 H 05/14/24 15:07 Pulse Ox 96 05/14/24 10:27 O2 Del Method Room Air 05/14/24 10:27 BMI result Body Mass Index 26.2 Const General: no acute distress Orientation/consciousness: patient oriented x3 Eyes EOM: EOMs intact bilaterally Neck Neck: Yes supple Resp Auscultation: diminished lung sounds Cardio Rate: regular rate GI Palpation (GI): Soft to palpation Neuro General: patient oriented x3 and moves all extremities Extrem General: Yes edema Results Lab Results 05/14/24 07:26 05/14/24 07:26 Lab results: Chemistry 05/13/24 05/14/24 06:12 07:26 Sodium 145 146 H Potassium 4.2 4.4 Carbon Dioxide 23 25 BUN 51 H 48 H Creatinine 2.66 H 2.57 H Calcium 8.9 9.0 Hematology 05/13/24 05/14/24 06:12 07:26 WBC 5.7 7.2 Hgb 9.2 L 9.2 L Plt Count 311 302 Assessment and Plan (1) Acute kidney injury superimposed on CKD: Status: Acute (2) CKD (chronic kidney disease) stage 3, GFR 30-59 ml/min: Qualifiers: Chronic kidney disease stage 3 subtype: stage 3a (GFR 45-59) Qualified Code(s): N18.31 - Chronic kidney disease, stage 3a Status: Acute (3) Anemia in chronic kidney disease: Qualifiers: Chronic kidney disease stage: stage 3 (moderate) Chronic kidney disease stage 3 subtype: stage 3b (GFR 30-44) Qualified Code(s): N18.32 - Chronic kidney disease, stage 3b; D63.1 - Anemia in chronic kidney disease Status: Acute (4) Hypertension: Qualifiers: Hypertension type: primary hypertension Qualified Code(s): I10 - Essential (primary) hypertension Status: Acute Plan Has JHONY due to compromise in renal perfusion Has CKD 3 B at baseline due to hypertension UO good. Still hypervolemic- on loop diuretics No NSAID's. GI W/U in progress; Procrit [id number] U tomorrow BP needs to be kept at goal;C/W rest of current mgt Labs AM. Shall closely follow up Procedures Date of Service Date of Service: 05/14/24
--- NOTE | 2024-05-14 19:30 | PC.NURSE ---
pt's BP: 178/94, HR: 88, RR: 18, O2: 96 RA, Denies CP, SOB at this time. Pt also requested her isosorbide, which she usually takes at home 30mg TID, when it is ordered right now as 60mg Daily, Dr. Guerrero aware, placed once order for Imdur 30mg. Pts BP is now 168/72, Dr. Guerrero made aware. pt is allowed to sleep with no apparent distress at this time.
[2024-05-14] MEDS: Ascorbic Acid 500 MG TABLET 1000 MG PO (21:36)
[2024-05-14] MEDS: 0.9 % Sodium Chloride Flush 3 ML SYRINGE IVFLUSH (21:38)
[2024-05-14] MEDS: Isosorbide Mononitrate 30 MG TAB.ER.24H PO (22:04)
[2024-05-15 03:23] VITALS: BP 172/80; PULSE 75; RESP 16; TEMP 36.1; O2SAT 97
[2024-05-15 06:53] VITALS: BP 170/80; PULSE 97; RESP 16; TEMP 36.7; O2SAT 98
[2024-05-15] MEDS: Isosorbide Mononitrate 60 MG TAB.ER.24H PO (07:51)
[2024-05-15] MEDS: Furosemide 20 MG/2 ML VIAL IVPUSH (07:51)
[2024-05-15] MEDS: Cyanocobalamin (Vitamin B-12) 1,000 MCG TABLET 1000 MCG PO (07:52)
[2024-05-15] MEDS: Cholecalciferol (Vitamin D3) 10 MCG TABLET PO (07:52)
[2024-05-15] MEDS: Gabapentin 100 MG CAPSULE PO (07:52)
[2024-05-15] MEDS: Aspirin 81 MG TAB.CHEW PO (07:52)
[2024-05-15] MEDS: Apixaban 2.5 MG TABLET PO (07:52)
[2024-05-15] MEDS: Spironolactone 25 MG TABLET 12.5 MG PO (07:52)
[2024-05-15] MEDS: Acetaminophen 325 MG TABLET 975 MG PO (07:53)
[2024-05-15] MEDS: oxyCODONE HCl Immed Release 5 MG TABLET 10 MG PO (07:53)
[2024-05-15] MEDS: 0.9 % Sodium Chloride Flush 3 ML SYRINGE IVFLUSH (07:56)
[2024-05-15 10:23] VITALS: BP 164/92
[2024-05-15] MEDS: cloNIDine HCL 0.1 MG TABLET PO (11:37)
[2024-05-15] MEDS: Metoprolol Tartrate 50 MG TABLET PO (11:37)
--- NOTE | 2024-05-15 11:41 | P.DS_ITS ---
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 05/08/24 15:19 Consult to Gastroenterology Routine Consulting Provider: Alison Spear Reason for consultation: Acute blood loss anemia, ?EGD and colonoscopy 05/08/24 16:14 Consult to Cardiology Routine Consulting Provider: [facility] Reason for consultation: Elevated tropns, anesthisia risk assessment d/t echo with hypokenesis 05/13/24 15:10 Consult to Nephrology Routine Consulting Provider: [facility] Reason for consultation: CKD, pt's request Has provider been notified: No 05/13/24 16:49 Consult to Orthopedics Routine Consulting Provider: [facility] Reason for consultation: Right knee effusion assoc leg edema s/p steroids injection Has provider been notified: No Discharging clinician: Ciraan Aguero DS: Diagnosis Discharge Diagnosis (1) Acute kidney injury superimposed on CKD: Status: Acute (2) CKD (chronic kidney disease) stage 3, GFR 30-59 ml/min: Status: Acute (3) Anemia in chronic kidney disease: Status: Acute (4) Hypertension: Status: Acute DS: Summary Hospital Course Hospital Course: Attending physician on admission: Chiki Toure HPI on admission Chief Complaint: Chest pain Pt is a 74-year-old female with a PMH significant for?CAD s/p stenting 2019, hx of DVT with pulmonary embolism 2017 on Eliquis, HTN, HLD, CKD 3, chronic anemia requiring transfusions in the past, diet-controlled diabetes type 2, osteoarthritis, and chronic lower leg edema who presents to the ED with?chest pain and dizziness since this morning. Pt reports when she woke up this morning she ?did not feel normal?. Reports experienced central, substernal, upper chest pain she describes as a burning sensation. Nonradiating, worse with exertion. Also experienced associated SOB, difficulty breathing, increasing tiredness and fatigue. Denies any nausea, vomiting, cough. Stool has been regular and brown- colored. Denies melena or hematochezia. Pt states has a long hx of chronic anemia requiring transfusions at [facility] [place] as well as in [place] in 2019. Reports a positive Cologuard test 3-4 years ago but did not follow-up with colonoscopy due to transportation issues. Pt recently established with Dr. Steinberg and Gastroenterology with planned outpatient colonoscopy in June. Pt also notes has osteoarthritis in right knee and reports lower leg edema secondary to cortisone and gel injections, as well as recent prednisone use. Pt also reports recent unintentional weight loss of around 25 lb. Pt denies abdominal pain. In the ED pt was hypertensive up to 165/64, vitals otherwise stable and WNL. Labs were significant for H&H 5.2/18.9, initial troponin 24.0, BNP 368, and albumin 3.0 no leukocytosis. No significant electrolyte abnormalities. Creatinine 2.27, around baseline. Hepatic function WNL. TSH WNL. Of note, in the ED pt refused rectal examination to test stool for occult blood. Tested negative for flu, COVID, RSV. UA negative for UTI. CXR showed cardiomegaly with clear lungs. EKG demonstrated normal sinus rhythm with sinus arrhythmia, but no acute ischemic changes from prior. Pt was transfused 1 unit PRBCs in the ED. Pt will be admitted to the hospital for treatment and further evaluation of acute symptomatic blood loss anemia concerning for GI bleed. Hospital course Patient was admitted to the medical floor. She received a total of 3 units of PRBCs and received treatment with Protonix IV. She underwent an EGD (05/12) that showed a normal esophagus and stomach. Duodenum has a 2 cm polypoid lesion, biopsy is were obtained; and no obvious evidence of bleeding. Colonoscopy could not be completed due to fair preparation. A CT enterography could not be performed due to patient's renal function. She will be scheduled for video capsule endoscopies on May 21. The capsule will be inserted endoscopically as the patient is unable to swallow pills. She will also need a colonoscopy within 6 months. Patient is to stop taking Eliquis 4 days before this procedure. She also received treatment with IV iron IV and Procrit SC (one dose on the day of discharge). Patient expressed her frustration about ongoing right knee and leg pain and swelling afternoon undergoing intra-articular steroids prior to admission. She was seen by orthopedic service and underwent knee aspiration but only a scant quantity of fluid was removed; they recommended pain management as an outpatient. Patient has been refusing to have total replacement of her right knee as she has to care for her mother. She was started on furosemide to help with edema. Subsequently, her pain improved after she received treatment with oxycodone 10 mg p.o. The day prior to discharge she developed an episode of bradycardia/3 seconds pauses after receiving treatment with clonidine and metoprolol. Since she developed rebound tachycardia the day of discharge these 2 medications were restarted and her heart rate normalized. Per nephrology, Dr. Anaya recommendations it is okay to start a course of prednisone 10 mg daily X 10 days, follow-up in 2 weeks and to stop the spironolactone for now. Patient was also evaluated by Cardiology Service after her troponin was found to be elevated. It was recommended to change Isordil mononitrate 60 mg p.o. daily. Aspirin was restarted and dose decreased to 81 mg p.o. daily. Time Attestation Discharge Coordination Time (in mins): 40 minutes Quality: Safe Use of Opioids Does Pt have an Active Cancer Diagnosis on the Problem List?: No Quality: Stroke Does the patient have a stroke diagnosis?: No Physical Exam Vital Signs: Vital Signs: Last Vital Signs Temp 98.1 F 05/15/24 06:53 Pulse 97 05/15/24 06:53 Resp 16 05/15/24 06:53 BP 164/92 H 05/15/24 10:23 Pulse Ox 98 05/15/24 06:53 O2 Del Method Room Air 05/15/24 06:53 BMI result Body Mass Index 26.2 Constitutional - Awake and Alert, No apparent distress. Very pleasant and cooperative. HEENT - PERRL, EOMI Heart - RRR, No murmurs Lungs - Normal lung expansion, Normal respiratory effort, No respiratory distress, CTA bilaterally Abdomen - Nontenderness Extremities - Right leg: Significant pitting edema and tenderness to palpations. No wounds. Musculoskeletal - Normal inspection, normal ROM Skin - Warm/Dry. No pallor. Neurological - Alert & oriented x3. No focal weakness grossly noted. Normal speech. Psychological - Appropriate affect DS: Data Data Completed and Pending Completed studies during hospitalization [Text1]: Pending at discharge 05/12/24 15:07 Surgical [PTH] Routine Labs on day of discharge: Labs: Laboratory Results - last 24 hr 05/14/24 07:26 MCV 89.2 MCH 26.9 L MCHC 30.2 L RDW 17.8 H Plt Count 302 MPV 10.0 Immature Gran % (Auto) 0.6 H Neut % (Auto) 71.3 Lymph % (Auto) 14.3 L [place] % (Auto) 11.8 H Eos % (Auto) 1.4 Baso % (Auto) 0.6 Lymph # (Auto) 1.0 L [place] # (Auto) 0.9 Eos # (Auto) 0.1 Baso # (Auto) 0.0 Abs Immat Gran (auto) 0.04 H Absolute Neuts (auto) 5.2 Absolute Nucleated RBC 0.000 Nucleated RBC % (auto) 0.0 Anion Gap 11 L Estim Creat Clear Calc 21.3 Estimated GFR 18 Random Glucose 107 Calcium 9.0 Imaging Chest x-ray: Radiologist's impression: ITS Impressions Chest X-Ray 05/08/24 12:32 IMPRESSION: Cardiomegaly. The lungs are clear. Electronically signed by: Raphael Holt MD 05/08/2024 01:21 PM EDT Venous Duplex 05/13/24 13:27 IMPRESSION: No acute deep venous thrombosis. 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 Electronically signed by: Neftali Infante MD 05/13/2024 02:17 PM EDT RP Right knee x-ray 05/07/24 Osteopenia, small pleural effusion, severe osteoarthritis Discharge Plan Discharge Anticipated Discharge Date/Time: 05/15/24 11:11 Patient Disposition: Home, Self-Care Discharge Diagnosis: Anemia, right knee severe osteoarthritis, right knee effusion, right leg edema Referrals: Physician,None [Primary Care Provider] - 1 Week Discharge Medications: New metoprolol tartrate 50 mg tablet 50 mg PO BID Qty: 90 0RF aspirin 81 mg Tablet,Chewable 81 mg PO DAILY Qty: 90 0RF oxycodone 10 mg tablet 10 mg PO Q6H PRN (Reason: knee pain) Qty: 15 0RF Rx Instructions: Partial Fill upon patient request. furosemide 20 mg tablet 20 mg PO DAILY Qty: 90 0RF prednisone 10 mg tablet 10 mg PO DAILY Qty: 10 0RF Continued isosorbide mononitrate 30 mg tablet extended release 24 hr 30 mg PO TID Qty: 270 3RF clonidine HCl 0.1 mg tablet 0.1 mg PO TID acetaminophen 500 mg Tablet 1,500 mg PO DAILY PRN (Reason: Pain) Eliquis 2.5 mg tablet 2.5 mg PO BID (DME) Knee Support Brace Misc See Rx Instructions .Route Qty: 1 0RF Rx Instructions: As directed Right hinged knee brace Dx: osteoarthritis knee ascorbate calcium (vitamin C) 500 mg tablet 1 g PO BEDTIME cholecalciferol (vitamin D3) 10 mcg (400 unit) capsule 10 mcg PO DAILY mecobalamin (vitamin B12) 1,000 mcg tablet,chewable 1,000 mcg PO DAILY Discontinued aspirin 325 mg Tablet 325 - 650 mg PO DAILY PRN (Reason: Pain) metoprolol tartrate 50 mg tablet 50 mg PO TID bumetanide 1 mg tablet 1 mg PO DAILY PRN (Reason: Fluid Retention) spironolactone 25 mg tablet 12.5 mg PO DAILY Discharge Orders: Discharge Order (Routine); Ordered 05/15/24 Ordered By: Ciaran Aguero Diet: Advance to usual diet Activity on Discharge: As tolerated Stand Alone Forms: Patient Portal Discharge page Print Language: Sinhala Care Plan Goals: See above Health Concerns: Anemia Right osteoarthritis and effusion Right leg edema Plan of Treatment: -Prednisone 10 mg p.o. daily X 10 days -Oxycodone 10 mg p.o. every 6 hours as needed for pain -Stopped taking spironolactone -Followed by primary care physician (pt needs a PCP for followup inside [facility]) -Referral pain management -Follow-up with Dr. Spear May 21, 2024 for video capsule insertion by endoscopy -Stop Eliquis May 17, 2024 (before endoscopy) -Follow with Dr. Anaya in 2 weeks -Elevate extremity -Continue compression stockings -Ice therapy to right knee as needed Assessment: See discharge summary Discharge Date/Time: 05/15/24 14:22
--- NOTE | 2024-05-15 12:11 | MHC.CM.PN ---
Per MD patient medically cleared for dc home self care. Patient will dc to mother's house ([address] [place] IMM delivered. BLS transport scheduled for 2pm. Patient and RN aware.
== END 2024-05-15 14:22 | disposition home or self-care (01) | DRG 812 ==
LOC: HO.ED 15:27 → HO.EDOVER 16:13 → HO.IMC 05-09 07:55 → HO.S3 05-13 16:56
PROVIDERS: Hospitalist; Internal Medicine; Physician Assistant Medical; Student in an Organized Health Care Education/Training Program; Admitting Provider Student in an Organized Health Care Education/Training Program; Emergency Provider Emergency Medicine; Visit Provider Internal Medicine
PROC: 0DB98ZX Excision of Duodenum, Via Natural or Artificial Opening Endoscopic, Diagnostic (ICD-10-PCS; principal; 2024-05-12 13:50)
DX: D62 Acute posthemorrhagic anemia (principal); I13.0 Hypertensive heart and chronic kidney disease with heart failure and stage 1 through stage 4 chronic kidney disease, or unspecified chronic kidney disease; I50.32 Chronic diastolic (congestive) heart failure; D63.1 Anemia in chronic kidney disease; K64.8 Other hemorrhoids; K31.7 Polyp of stomach and duodenum; M17.11 Unilateral primary osteoarthritis, right knee; I34.0 Nonrheumatic mitral (valve) insufficiency; N18.30 Chronic kidney disease, stage 3 unspecified; E11.22 Type 2 diabetes mellitus with diabetic chronic kidney disease; I25.10 Atherosclerotic heart disease of native coronary artery without angina pectoris; Z20.822 Contact with and (suspected) exposure to COVID-19; Z95.5 Presence of coronary angioplasty implant and graft; Z87.891 Personal history of nicotine dependence; Z86.711 Personal history of pulmonary embolism; Z86.718 Personal history of other venous thrombosis and embolism; Z79.01 Long term (current) use of anticoagulants; Z79.899 Other long term (current) drug therapy
CPT/HCPCS: 0241U; 36415; 71046; 73560; 80048; 80051; 80053; 81001; 82565; 83735; 83880; 84443; 84484; 84520; 85025; 85027; 85045; 85610; 86850; 86870; 86900; 86901; 86902; 86920; 86922; 88305; 93005; 93970; 99285; J0885; J1364; J1596; J1650; J1756; J1940; J2003; J2470; J2704; P9016

== ENCOUNTER → 2024-05-08 12:32 | Outpatient (BNV) | payer MEDICARE, MEDICAID, SELFPAY | PROVIDERS: Emergency Provider Emergency Medicine; Visit Provider Radiology Diagnostic Radiology | DX: R07.9 Chest pain, unspecified (principal); R42 Dizziness and giddiness; I51.7 Cardiomegaly | CPT/HCPCS: 71046 ==

== ENCOUNTER → 2024-05-08 12:32 | Outpatient (BNV) | payer MEDICARE, MEDICAID, SELFPAY | PROVIDERS: Admitting Provider Student in an Organized Health Care Education/Training Program; Emergency Provider Emergency Medicine; Visit Provider Internal Medicine Cardiovascular Disease | DX: I49.8 Other specified cardiac arrhythmias (principal); R07.89 Other chest pain | CPT/HCPCS: 93010 ==

== ENCOUNTER 2024-05-08 15:19 | Outpatient (BNV) | payer MEDICARE, MEDICAID, SELFPAY | END 2024-05-14 10:14 | PROVIDERS: Admitting Provider Student in an Organized Health Care Education/Training Program; Emergency Provider Emergency Medicine; Visit Provider Internal Medicine Cardiovascular Disease | DX: R00.1 Bradycardia, unspecified (principal); R94.31 Abnormal electrocardiogram [ECG] [EKG] | CPT/HCPCS: 93010 ==

== ENCOUNTER 2024-05-08 15:19 | Outpatient (BNV) | payer MEDICARE, MEDICAID, SELFPAY | END 2024-05-11 20:37 | PROVIDERS: Admitting Provider Student in an Organized Health Care Education/Training Program; Emergency Provider Emergency Medicine; Visit Provider Internal Medicine Cardiovascular Disease | DX: R07.9 Chest pain, unspecified (principal); R94.31 Abnormal electrocardiogram [ECG] [EKG] | CPT/HCPCS: 93010 ==

== ENCOUNTER 2024-05-08 15:19 | Outpatient (BNV) | payer MEDICARE, MEDICAID, SELFPAY | END 2024-05-13 10:50 | PROVIDERS: Admitting Provider Student in an Organized Health Care Education/Training Program; Emergency Provider Emergency Medicine; Visit Provider Radiology Diagnostic Radiology | DX: R22.43 Localized swelling, mass and lump, lower limb, bilateral (principal) | CPT/HCPCS: 93970 ==

== ENCOUNTER → 2024-05-08 15:19 | Outpatient (BNV) | payer MEDICARE, MEDICAID, SELFPAY | PROVIDERS: Admitting Provider Student in an Organized Health Care Education/Training Program; Emergency Provider Emergency Medicine; Visit Provider Internal Medicine Cardiovascular Disease | DX: D64.9 Anemia, unspecified (principal); R07.89 Other chest pain; I10 Essential (primary) hypertension; Z01.810 Encounter for preprocedural cardiovascular examination | CPT/HCPCS: 99223 ==

== ENCOUNTER → 2024-05-08 15:19 | Outpatient (BNV) | payer MEDICARE, MEDICAID, SELFPAY | PROVIDERS: Admitting Provider Student in an Organized Health Care Education/Training Program; Emergency Provider Emergency Medicine; Visit Provider Internal Medicine | DX: D64.9 Anemia, unspecified (principal); E61.1 Iron deficiency; N18.32 Chronic kidney disease, stage 3b; D63.1 Anemia in chronic kidney disease | CPT/HCPCS: 99223 ==

== ENCOUNTER → 2024-05-08 15:19 | Outpatient (BNV) | payer MEDICARE, MEDICAID, SELFPAY | PROVIDERS: Admitting Provider Student in an Organized Health Care Education/Training Program; Emergency Provider Emergency Medicine; Visit Provider Internal Medicine Nephrology | DX: N17.9 Acute kidney failure, unspecified (principal); I12.9 Hypertensive chronic kidney disease with stage 1 through stage 4 chronic kidney disease, or unspecified chronic kidney disease; N18.31 Chronic kidney disease, stage 3a; N18.32 Chronic kidney disease, stage 3b; D63.1 Anemia in chronic kidney disease | CPT/HCPCS: 99223 ==

== ENCOUNTER → 2024-05-08 15:19 | Outpatient (BNV) | payer MEDICARE, MEDICAID, SELFPAY | PROVIDERS: Admitting Provider Student in an Organized Health Care Education/Training Program; Emergency Provider Emergency Medicine; Visit Provider Hospitalist | DX: D64.9 Anemia, unspecified (principal) | CPT/HCPCS: 99232 ==

== ENCOUNTER → 2024-05-08 15:19 | Outpatient (BNV) | payer MEDICARE, MEDICAID, SELFPAY | PROVIDERS: Admitting Provider Student in an Organized Health Care Education/Training Program; Emergency Provider Emergency Medicine; Visit Provider Physician Assistant | DX: M17.11 Unilateral primary osteoarthritis, right knee (principal) | CPT/HCPCS: 99223 ==

== ENCOUNTER → 2024-05-21 09:20 | Day surgery (SDC) | payer MEDICARE, MEDICAID, SELFPAY ==
--- NOTE | 2024-05-20 09:05 | P.CONAN_ITS ---
HPI - Anesthesia Eval Consult details Narrative: 74yo F for Colonoscopy, Upper Endoscopy PillCam Placement s/p EGD 05/12/24 with TIVA C admit 05/08-05/15/24: Hospital course Patient was admitted to the medical floor. She received a total of 3 units of PRBCs and received treatment with Protonix IV. She underwent an EGD (05/12) that showed a normal esophagus and stomach. Duodenum has a 2 cm polypoid lesion, biopsy is were obtained; and no obvious evidence of bleeding. Colonoscopy could not be completed due to fair preparation. A CT enterography could not be performed due to patient's renal function. She will be scheduled for video capsule endoscopies on May 21. The capsule will be inserted endoscopically as the patient is unable to swallow pills. She will also need a colonoscopy within 6 months. Patient is to stop taking Eliquis 4 days before this procedure. She also received treatment with IV iron IV and Procrit SC (one dose on the day of discharge). Patient expressed her frustration about ongoing right knee and leg pain and swelling afternoon undergoing intra-articular steroids prior to admission. She was seen by orthopedic service and underwent knee aspiration but only a scant quantity of fluid was removed; they recommended pain management as an outpatient. Patient has been refusing to have total replacement of her right knee as she has to care for her mother. She was started on furosemide to help with edema. Subsequently, her pain improved after she received treatment with oxycodone 10 mg p.o. The day prior to discharge she developed an episode of bradycardia/3 seconds pauses after receiving treatment with clonidine and metoprolol. Since she developed rebound tachycardia the day of discharge these 2 medications were restarted and her heart rate normalized. Per nephrology, Dr. Anaya recommendations it is okay to start a course of prednisone 10 mg daily X 10 days, follow-up in 2 weeks and to stop the spironolactone for now. Patient was also evaluated by Cardiology Service after her troponin was found to be elevated. It was recommended to change Isordil mononitrate 60 mg p.o. daily. Aspirin was restarted and dose decreased to 81 mg p.o. daily. PMFSH Active Problems Active Problems: All Active Problems Acute kidney injury superimposed on CKD (Acute) Right leg swelling (Acute) Preop cardiovascular exam (Acute) Chest discomfort (Acute) Acute on chronic anemia (Acute) Anemia (Acute) Osteoarthritis of right knee (Acute) Knee pain, right (Acute) Gout (Acute) Unintentional weight loss (Acute) CAD (coronary artery disease) (Acute) Dyspnea (Acute) GIB (gastrointestinal bleeding) (Acute) Hyperkalemia (Acute) Iron deficiency (Acute) Anemia in chronic kidney disease (Acute) Hypertension (Acute) CKD (chronic kidney disease) stage 3, GFR 30-59 ml/min (Acute) Past Medical History Medical History (Updated 05/20/24 @ 09:08 by Gabriela Pavon NP) Diet-controlled diabetes mellitus Pulmonary embolism DVT (deep venous thrombosis) Anemia CKD (chronic kidney disease) stage 3, GFR 30-59 ml/min CAD (coronary artery disease) Hypertension Anemia in chronic kidney disease Family History Family history of problems with anesthesia: No Surgical History Surgical History History of partial hysterectomy History of Problems with Anesthesia: No Social History Social History Household Members: Family Housing: Apartment Do you presently have visiting nurse or other home services: No Alcohol intake: never Patient Tobacco Use Status: Former Tobacco user service: No Meds Allergies Allergy/AdvReac Type Severity Reaction Status Date / Time amoxicillin Allergy Unknown Unknown Verified 05/08/24 12:53 hydrochlorothiazide Allergy Unknown Unknown Verified 05/08/24 12:53 morphine Allergy Unknown Nausea Verified 05/09/24 00:00 codiene Allergy Intermediate Nausea Uncoded 05/08/24 12:53 Chase inhibitors Allergy Unknown Unknown Uncoded 05/08/24 12:53 latex Allergy Unknown rash Uncoded 05/08/24 12:53 Home Medications ?Medication ?Instructions ?Recorded ?Confirmed ?Last Taken ?Type apixaban 2.5 mg tablet (Eliquis) 2.5 mg PO BID 01/30/23 05/08/24 05/08/24 History ascorbate calcium (vitamin C) 500 1 g PO BEDTIME 02/27/24 05/08/24 05/08/24 History mg tablet cholecalciferol (vitamin D3) 10 10 mcg PO DAILY 02/27/24 05/08/24 05/08/24 Hist ory mcg (400 unit) capsule mecobalamin (vitamin B12) 1,000 1,000 mcg PO DAILY 02/27/24 05/08/24 05/08/24 History mcg chewable tablet acetaminophen 500 mg tablet 1,500 mg PO DAILY PRN Pain 05/08/24 05/08/24 Unknown History clonidine HCl 0.1 mg tablet 0.1 mg PO TID 05/08/24 05/08/24 05/08/24 History Exam Pertinent Lab Results Pertinent Lab Results: Laboratory Tests 05/14/24 07:26 WBC 7.2 Hgb 9.2 L Hct 30.5 L Plt Count 302 Sodium 146 H Potassium 4.4 Chloride 114 H Carbon Dioxide 25 BUN 48 H Creatinine 2.57 H Narrative Narrative: EKG 04/2024 Vent. Rate : 62 BPM Atrial Rate : 62 BPM P-R Int : 140 ms QRS Dur : 82 ms QT Int : 460 ms P-R-T Axes : 44 6 219 degrees QTcB Int : 466 ms Normal sinus rhythm ST & T wave abnormality, consider inferior ischemia ST & T wave abnormality, consider anterolateral ischemia Prolonged QT Abnormal ECG When compared to the previous EKG of T wave inversion now evident in Inferolateral leads ECHO 01/2024 Conclusions: - The left ventricular systolic function is normal. The calculated ejection fraction is 58% by biplane method. - The basal inferior and basal inferolateral segments are hypokinetic. - There is mild mitral valve regurgitation. Assessment and Plan Assessment Anesthesia Assessment: Chart Reviewed Final Anesthetic Review Family History of Problems with Anesthesia: No History of Problems with Anesthesia: No
--- NOTE | 2024-05-21 10:15 | PC.NURSE ---
Pt arrived 1 hour late to scheduled procedure. Pt states could not complete all of colonoscopy prep due to feelings of fullness. Pt had a small formed BM in pre op. RN advised Dr. Spear. Dr. Spear at bedside. Per MD pt to have both upper endoscopy and colonosocpy at the same time. canceled procedure for today. Pt rescheduled for procedure on 05/29/2024. Pt notified. Pt educated regarding colonoscopy prep at bedside by MD/RN. Pt verbalized understanding.
--- NOTE | 2024-05-21 10:18 | MHC.SHP ---
Pre-Procedural Eval Section A - 24 Hr Update-Section A only Date of Service: 05/21/24 Section B - Complete if H&P > 30 days Chief Complaint: Abnormal weight loss Allergies: Allergies Allergy/AdvReac Type Severity Reaction Status Date / Time amoxicillin Allergy Unknown Unknown Verified 05/21/24 10:02 hydrochlorothiazide Allergy Unknown Unknown Verified 05/21/24 10:02 morphine Allergy Unknown Nausea Verified 05/21/24 10:02 codiene Allergy Intermediate Nausea Uncoded 05/21/24 10:02 Chase inhibitors Allergy Unknown Unknown Uncoded 05/21/24 10:02 latex Allergy Unknown rash Uncoded 05/21/24 10:02 Plan Diagnosis/Plan: Change I have reviewed the history and physical and performed a pertinent physical examination on my patient. No changes have occurred unless specified. Pt was not able to finish prep and passing formed BMs in pre-op. Procedure CANCELED for today. Will be rebooked for 05/29. Time Spent With Patient Time: Total time managing care of this patient today ____ minutes.
== END ==
LOC: HO.SSS 09:21
PROVIDERS: Visit Provider Internal Medicine
DX: E61.1 Iron deficiency (principal); Z53.8 Procedure and treatment not carried out for other reasons; R63.4 Abnormal weight loss; E11.9 Type 2 diabetes mellitus without complications; I26.99 Other pulmonary embolism without acute cor pulmonale; Z79.01 Long term (current) use of anticoagulants; Z79.899 Other long term (current) drug therapy; Z91.040 Latex allergy status; Z88.1 Allergy status to other antibiotic agents; Z88.8 Allergy status to other drugs, medicaments and biological substances; Z88.5 Allergy status to narcotic agent

== ENCOUNTER 2024-06-04 08:45 | Outpatient (REF) | payer MEDICARE, MEDICAID, SELFPAY ==
--- OUTSIDE RECORDS SUMMARY | 2024-06-04 09:11 | XMS_ITS | Clinical Summary ---
Author Organization [employer] [facility] Address [address] [place] [address] Care Team Providers Care Event Executive Name Role Phone Unavailable Primary Care Provider [...]
--- OUTSIDE RECORDS SUMMARY | 2024-06-04 09:11 | XMS_ITS | Clinical Summary ---
Author Organization [facility] Address [address] [place] [address] Phone Care Team Providers Care Director Of Strategic Alliances Name Role Phone Marychuy Ríos MD Primary Care Provider Allergies Active Allergy Reactions Criticality Noted Date [...] Comments Breast Cancer Screening 1950 Pneumococcal Vaccine: 50+ Years (1 of 2 - PCV) 970 Colorectal Cancer Screening: Annual FOBT 01/02/2000 Colorectal Cancer Screening: Colonoscopy 01/02/2000 Colorectal Cancer Screening: Sigmoidoscopy 01/02/2000 Influenza Vaccine (Season Ended) 2024 Insurance Medicare Medicaid [place] Medicare Medicaid [place] Care Teams Director Of Strategic Alliances Relationship Specialty Start Date End Date Marychuy Ríos MD [address] [place] [phone] PCP - General Internal Medicine 11/03/20
--- OUTSIDE RECORDS SUMMARY | 2024-06-04 09:11 | XMS_ITS | Encounter Summary ---
Author Organization [facility] Address [address] [place] [address] Phone Care Team Providers Care Paint Crew Supervisor Name Role Phone Marychuy Ríos MD Primary Care Provider [phone] Encounter Details Date Type Department Care Team (Late st Contact Info) Description 09/01/2020 Orders Only [facility] [address] [place] [address] London Boyer MD Stage 3b chronic [...] 7:46 AM EDT) Glucose 113(H) (70-99) MG/DL [facility] BUN 42(H) (8-23) MG/DL [facility] Creatinine 2.0(H) (0.5-1.0) MG/DL [facility] Sodium 141 (133-145) MMOL/L [facility] Potassium 5.1 (3.6-5.2) MMOL/L [facility] Chloride 106 (98-107) MMOL/L [facility] Bicarbonate (CO2) 23 (22-29) MMOL/L [facility] Anion Gap 12 (4-17) [facility] Albumin 4.2 (3.4-4.8) GM/DL [facility] Calcium 9.5 (8.6-10.5) MG/DL [facility] Phosphorus, Serum 3.8 (2.5-4.5) MG/DL [facility] Est GFR Non 25 ML/MIN/1.7 3 M2 [facility] Comment: Creatinine based estimated glomerular filtration rate (eGFR) is calculated using the Chronic Kidney Disease Epidemiology Collaboration (CKD-EPI). The CKD-EPI creatinine equation has not been validated in children (<18 years), women or in some racial or ethnic subgroups other than Caucasians and Americans. EST GFR 29 ML/MIN/1.7 3 M2 [facility] Comment: Creatinine based estimated glomerular filtration rate (eGFR) is calculated using the Chronic Kidney Disease Epidemiology Collaboration (CKD-EPI). The CKD-EPI creatinine equation has not been validated in children (<18 years), women or in some racial or ethnic subgroups other than Caucasians and Americans. Testing performed or reported by [facility], a Service of [facility], [address] [place] [id number] John Muñiz MD, Farm Management Agent Blood (Blood, Venous) 08/03/2020 7:46 AM EDT 08/03/2020 7:49 AM EDT us London Boyer MD LAB BLOOD ORDERABLES Final Resul t [facility] * (ABNORMAL) CBC (08/03/2020 7:46 AM EDT) Pathologist [facility] White Blood Cells 6.3 (4.0-11.0) K/MM3 [facility] RBC 3.73(L) (4.20-5.40 ) M/MM3 [facility] Hgb 9.7(L) (11.7-15.5 ) GM/DL [facility] Hematocrit 34.5(L) (35.7-45.8 ) % [facility] MCV 92.5 (80.0-100. 0) FL [facility] MCH 26.0(L) (27.0-34.0 ) PG [facility] MCHC 28.1(L) (33.0-37.0 ) g/dL [facility] Platelets 262 (150-460) K/MM3 [facility] RDW-SD 59.2(H) (<47.0) FL [facility] MPV 12.1 (9.4-12.4) [place] [facility] nRBC Count 0.3 #/100 WBC'S [facility] NRBC Absolute 0.0 K/MM3 [facility] Comment: Testing performed or reported by [facility], a Service of [facility], [address] [place] [address] John Muñiz MD, Farm Management Agent Blood (Blood, Venous) 08/03/2020 7:46 AM EDT 08/03/2020 7:49 AM EDT us London Boyer MD LAB BLOOD ORDERABLES Final Resul t [facility] documented in this encounter Visit Diagnoses Diagnosis Stage 3b chronic kidney disease (HCC) Essential hypertension documented in this encounter Care Teams Paint Crew Supervisor Relationship Specialty Start Date End Date Marychuy Ríos MD [address] [place] [address] PCP - General Internal Medicine 11/03/20 documented as of this encounter
--- OUTSIDE RECORDS SUMMARY | 2024-06-04 09:11 | XMS_ITS | Encounter Summary ---
Author Organization [facility] [employer] Address [address] [place] [address] 7 [place] [address] Care Team Providers Care Director Workforce Management Name Role Phone Unavailable Primary Care Provider [...]
--- OUTSIDE RECORDS SUMMARY | 2024-06-04 09:11 | XMS_ITS | Encounter Summary ---
Author Organization [facility] [employer] Address [address] [place] [address] 7 [place] [address] Care Team Providers Care Bookmaker Map Name Role Phone Unavailable Primary Care Provider [...]
[2024-06-04 09:48] LABS: MANUAL DIFF FLAG NO
[2024-06-04 10:45] LABS: Basophils Absolute Auto 0.1 X10*3/uL (0.0-0.2); Basophils Percent Auto 0.6 % (0-2); Eosinophils Absolute Auto 0.1 X10*3/uL (0.0-0.4); Eosinophils Percent Auto 0.6 % (0-4); Imm Gran Abs Auto 0.04 X10*3/uL (0.00-0.03); Imm Gran Pct Auto 0.4 % (0.0-0.4); Lymphocytes Absolute Auto 0.9 X10*3/uL (1.2-4.9); Lymphocytes Percent Auto 9.8 % (20-40); Mean Corpuscular HGB Conc 28.2 g/dl (31.0-35.0); Mean Corpuscular Hemoglobin 25.8 pg (27.0-33.0); Mean Corpuscular Volume 91.4 fL (80.0-98.0); Mean Platelet Volume 10.4 fL (9.4-12.3); Monocytes Absolute Auto 0.5 X10*3/uL (0.1-1.2); Monocytes Percent Auto 5.2 % (2-11); NRBC Pct Auto 0.4 /100WBC (0.0-0.2); Neutrophils Absolute Auto 7.6 x10*3/uL (2.0-8.3); Neutrophils Percent Auto 83.4 % (45-73); Platelet Count 427 X10*3/uL (160-400); Red Blood Count 2.21 X10*6/uL (4.20-5.50); Red Cell Distribution Width 18.8 % (11.0-16.0); White Blood Count 9.1 X10*3/uL (4.8-10.8)
[2024-06-04 11:04] LABS: Hematocrit 20.2 % (37.0-47.0); Hemoglobin 5.7 g/dl (12.0-16.0)
[2024-06-04 11:13] LABS: Anion Gap 14 (12-20); Blood Urea Nitrogen 48 mg/dL (9-16); Calcium 9.2 mg/dL (8.4-10.2); Carbon Dioxide 23 mmol/L (22-29); Chloride 111 mmol/L (96-108); Estimated Glomerular Filt Rate 23; Iron 17 mcg/dL (30-160); Percent Iron Saturation 7 % (15-50); Phosphorus 3.4 mg/dL (2.7-4.5); Potassium 4.4 mmol/L (3.3-5.1); Sodium 144 mmol/L (135-145); Total Iron Binding Capacity 238 mcg/dL (228-428); Unsaturated Iron Binding 221 ug/dL
[2024-06-04 11:15] LABS: Parathyroid Hormone Intact 214.8 pg/mL (8.7-77.1)
[2024-06-04 11:40] LABS: Vitamin D 25-OH Total 34.7 ng/mL (>30)
== END 2024-06-04 08:46 | disposition home or self-care (01) ==
LOC: HO.LAB 08:45
PROVIDERS: PCP Physician Assistant; Visit Provider Internal Medicine Nephrology
DX: N18.32 Chronic kidney disease, stage 3b (principal); D63.1 Anemia in chronic kidney disease; E61.1 Iron deficiency; N18.31 Chronic kidney disease, stage 3a; N25.81 Secondary hyperparathyroidism of renal origin; I10 Essential (primary) hypertension; E11.9 Type 2 diabetes mellitus without complications
CPT/HCPCS: 36415; 80051; 82306; 82310; 82565; 83540; 83970; 84100; 84520; 85025; 96372; 99212; Q5106

== ENCOUNTER 2024-06-04 09:59 | Outpatient (AMB) | payer MEDICARE, MEDICAID, SELFPAY ==
--- NOTE | 2024-06-04 10:12 | HO.NEPHOV_ITS ---
Vital Signs 06/04/24 10:14 Height 5 ft 8 in Weight 173 lb BMI 26.3 BP 178/80 H Blood Pressure Location Rt brachial Position Sitting Pulse 82 Pulse Source Pulse Oximeter Pulse Oximetry (%) 99 Oxygen Delivery Method Room Air Intake Visit Reasons: follow-up Last Cleaner Required: No Accompanied by: Self / Same As Patient Allergies amoxicillin Allergy (Unknown, Verified 06/04/24 10:14) Unknown hydrochlorothiazide Allergy (Unknown, Verified 06/04/24 10:14) Unknown morphine Allergy (Unknown, Verified 06/04/24 10:14) Nausea codiene Allergy (Intermediate, Uncoded 05/21/24 10:02) Nausea Chase inhibitors Allergy (Unknown, Uncoded 05/21/24 10:02) Unknown latex Allergy (Unknown, Uncoded 05/21/24 10:02) rash HPI Comments Details: Yecenia is a 74-year-old female with a PMH significant for?CAD s/p stenting 2018, hx of DVT with pulmonary embolism 2017 on Eliquis, HTN, HLD, CKD 3, chronic anemia requiring transfusions in the past, diet-controlled diabetes type 2, osteoarthritis, and chronic lower leg edema who recently presented to the ER with?chest pain and dizziness. She had some chest pain but experienced associated SOBE, increasing tiredness and fatigue. At that time she denied any nausea, vomiting, cough. Stool has been regular and brown-colored. Denied melena or hematochezia. She reported a positive Cologuard test 3-4 years ago but did not follow-up with colonoscopy due to transportation issues. Pt also reported unintentional weight loss of around 25 lb.In the ED pt was hypertensive up to 165/64, vitals otherwise stable and WNL. Labs were significant for H&H 5.2/18.9, initial troponin 24.0, BNP 368, and albumin 3.0 no leukocytosis. No significant electrolyte abnormalities. Creatinine 2.27, around baseline. Hepatic function WNL. TSH WNL. Of note, in the ED pt refused rectal examination to test stool for occult blood. Tested negative for flu, COVID, RSV. UA negative for UTI. CXR showed cardiomegaly with clear lungs. EKG demonstrated normal sinus rhythm with sinus arrhythmia, but no acute ischemic changes from prior. Pt was transfused 1 unit PRBCs in the ED and was admitted to the hospital for treatment and further evaluation of acute symptomatic blood loss anemia concerning for GI bleed.She received a total of 3 units of PRBCs and received treatment with Protonix IV. She underwent an EGD (05/12) that showed a normal esophagus and stomach. Duodenum has a 2 cm polypoid lesion, biopsy is were obtained; and no obvious evidence of bleeding. Colonoscopy could not be completed due to fair preparation. A CT enterography could not be performed due to patient's renal function. She will be scheduled for video capsule endoscopies on May. She will also need a colonoscopy within 6 months. Patient is to stop taking Eliquis 4 days before this procedure. She also received treatment with IV iron IV and Procrit SC (one dose on the day of discharge). Patient also expressed her frustration about ongoing right knee and leg pain and swelling afternoon undergoing intra-articular steroids prior to admission. She was seen by orthopedic service and underwent knee aspiration but only a scant quantity of fluid was removed; they recommended pain management as an outpatient. Patient has been refusing to have total replacement of her right knee as she has to care for her mother. Aspirin was restarted and dose decreased to 81 mg p.o. daily. She was seen in follow up today. She denied any new issues and had repeat blood work this morning [facility] Medical History (Updated 06/04/24 @ 09:23 by London Boyer MD) Hypertension CKD (chronic kidney disease) stage 3, GFR 30-59 ml/min Diet-controlled diabetes mellitus Pulmonary embolism DVT (deep venous thrombosis) CAD (coronary artery disease) Anemia in chronic kidney disease Surgical History History of partial hysterectomy Social History Household Members: Family Housing: Apartment Do you presently have visiting nurse or other home services: No Alcohol intake: never Patient Tobacco Use Status: Former Tobacco user service: No Review of Systems Const All systems reviewed & are unremarkable except as noted in HPI and below Physical Exam Vital Signs: Last Vital Signs Pulse 82 06/04/24 10:14 BP 178/80 H 06/04/24 10:14 Pulse Ox 99 06/04/24 10:14 Oxygen Delivery Method Room Air 06/04/24 10:14 BMI result Body Mass Index 26.3 Const General: comfortable and no acute distress Orientation/consciousness: patient oriented x3 HEENT Head: Yes normocephalic Mouth: Normal oral and palatal mucosa present Eyes EOM: EOMs intact bilaterally Neck Neck: Yes supple Resp Auscultation: clear to auscultation bilaterally Cardio Jugular venous distension: no JVD Rate: regular rate GI Palpation (GI): Soft to palpation Auscultation: normal bowel sounds General: Yes no CVA tenderness Back/Spine/Pelvis Back: no CVA tenderness Skin General skin exam: no rashes or lesions noted Neuro General: patient oriented x3 and moves all extremities Office Meds epoetin [id number] 10,000 unit/mL injection solution Performing Provider: London Boyer MD Performing Location: [facility] [place] [facility] Administered by: London Boyer MD on 06/04/24 10:45 Dose Route Admin Location Dispensed Lot Number Expiration Date [facility] Customer Success Director 20,000 unit subcut LUE 2 mL [id number] 06/19/25 0928-8243-37 [employer] Results Reviewed Nephrology Results: Hgb 5.7 g/dl (12.0-16.0) L* 06/04/24 WBC 9.1 X10*3/uL (4.8-10.8) 06/04/24 Plt Count 427 X10*3/uL (160-400) H 06/04/24 Sodium 144 mmol/L (135-145) 06/04/24 Potassium 4.4 mmol/L (3.3-5.1) 06/04/24 Chloride 111 mmol/L (96-108) H 06/04/24 Carbon Dioxide 23 mmol/L (22-29) 06/04/24 BUN 48 mg/dL (9-16) H 06/04/24 Creatinine 2.14 mg/dL (0.5-1.4) H 06/04/24 Calcium 9.2 mg/dL (8.4-10.2) 06/04/24 Phosphorus 3.4 mg/dL (2.7-4.5) 06/04/24 PTH Intact 214.8 pg/mL (8.7-77.1) H 06/04/24 Urine Protein 300 (3+) mg/dL (Neg-Trace) H 05/08/24 Assessment & Plan Assessment & Plan (1) Secondary hyperparathyroidism (of renal origin): Code(s): N25.81 - Secondary hyperparathyroidism of renal origin Category: Medical (2) Hypertension: Code(s): I10 - Essential (primary) hypertension Category: Medical Qualifiers: Hypertension type: primary hypertension Qualified Code(s): I10 - Essential (primary) hypertension (3) CKD (chronic kidney disease) stage 3, GFR 30-59 ml/min: Code(s): N18.30 - Chronic kidney disease, stage 3 unspecified Category: Medical Qualifiers: Chronic kidney disease stage 3 subtype: stage 3a (GFR 45-59) Qualified Code(s): N18.31 - Chronic kidney disease, stage 3a (4) Anemia in chronic kidney disease: Code(s): N18.9 - Chronic kidney disease, unspecified; D63.1 - Anemia in chronic kidney disease Category: Medical Qualifiers: Chronic kidney disease stage: stage 3 (moderate) Chronic kidney disease stage 3 subtype: stage 3b (GFR 30-44) Qualified Code(s): N18.32 - Chronic kidney disease, stage 3b; D63.1 - Anemia in chronic kidney disease Plan Yecenia has chronic kidney disease and longstanding hypertension. 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 She is known to have coronary artery disease and has undergone angioplasty and stenting. She had upper endoscopy but is due to have enteroscopy as well as lower endoscopy . She has seen GI and has a F/U . I have arranged 2 units of PRBC. She may also need Hematology consult +/- bone marrow biopsy. She needs to maintain low-sodium & K diet. She was given Procrit today. Follow up blood work ordered. Answered all questions Orders: Orders AMB Epoetin Injection Practice Supplied Today D63.1 - Anemia in chronic kidney disease, N18.32 - Chronic kidney disease, stage 3b Coding Level of Care Code Est Pt Level 4 (29656) Diagnoses Secondary hyperparathyroidism (of renal origin) N25.81 Primary hypertension I10 Hypertension type: primary hypertension Stage 3a chronic kidney disease N18.31 Chronic kidney disease stage 3 subtype: stage 3a (GFR 45-59) Anemia in stage 3b chronic kidney disease N18.32; D63.1 Chronic kidney disease stage: stage 3 (moderate) Chronic kidney disease stage 3 subtype: stage 3b (GFR 30-44)
[2024-06-04 10:14] VITALS: BP 178/80; PULSE 82; O2SAT 99; BMI 26.3
--- OUTSIDE RECORDS SUMMARY | 2024-06-04 11:25 | XMS_ITS | Clinical Summary ---
Author Organization [facility] Address [address] [place] [address] Phone Care Team Providers Care Developer Prover Mechanical Name Role Phone Marychuy Ríos MD Primary Care Provider [phone] Allergies Active Allergy Reactions Criticality Noted Date [...] Medicaid [place] Care Teams Developer Prover Mechanical Relationship Specialty Start Date End Date Marychuy Ríos MD [address] [place] [phone] PCP - General Internal Medicine 11/03/20
--- OUTSIDE RECORDS SUMMARY | 2024-06-04 11:25 | XMS_ITS | Clinical Summary ---
Author Organization [employer] [facility] Address [address] [place] [address] Care Team Providers Care Strap Machine Operator Automatic Name Role Phone Unavailable Primary Care Provider [...]
--- OUTSIDE RECORDS SUMMARY | 2024-06-04 11:26 | XMS_ITS | Encounter Summary ---
Author Organization [facility] [employer] Address [address] [place] [address] [address] [place] [address] Care Team Providers Care Stone Driller Name Role Phone Unavailable Primary Care Provider [...]
--- OUTSIDE RECORDS SUMMARY | 2024-06-04 11:26 | XMS_ITS | Encounter Summary ---
Author Organization [facility] [employer] Address [address] [place] [address] 7 [place] [address] Care Team Providers Care Police And Fire Dispatcher Name Role Phone Unavailable Primary Care Provider [...]
--- OUTSIDE RECORDS SUMMARY | 2024-06-04 11:26 | XMS_ITS | Encounter Summary ---
Author Organization [facility] Address [address] [place] [address] Phone Care Team Providers Care Transition Social Worker Name Role Phone Marychuy Ríos MD Primary Care Provider [phone] Encounter Details Date Type Department Care Team (Late st Contact Info) Description 09/01/2020 Orders Only [facility] [address] [place] [address] [...] 7:46 AM EDT) Glucose 113(H) (70-99) MG/DL [facility] BUN 42(H) (8-23) MG/DL [facility] Creatinine 2.0(H) (0.5-1.0) MG/DL [facility] Sodium 141 (133-145) MMOL/L [facility] Potassium 5.1 (3.6-5.2) MMOL/L [facility] Chloride 106 (98-107) MMOL/L [facility] Bicarbonate (CO2) 23 (22-29) MMOL/L [facility] Anion Gap 12 (4-17) [facility] Albumin 4.2 (3.4-4.8) GM/DL [facility] Calcium 9.5 (8.6-10.5) MG/DL [facility] Phosphorus, Serum 3.8 (2.5-4.5) MG/DL [facility] Est GFR Non 25 ML/MIN/1.7 3 M2 [facility] Comment: Creatinine based estimated glomerular filtration rate (eGFR) is calculated using the Chronic Kidney Disease Epidemiology Collaboration (CKD-EPI). The CKD-EPI creatinine equation has not been validated in children (<18 years), women or in some racial or ethnic subgroups other than Caucasians and Americans. EST GFR 29 ML/MIN/1.7 3 M2 [facility] Comment: Creatinine based estimated glomerular filtration rate (eGFR) is calculated using the Chronic Kidney Disease Epidemiology Collaboration (CKD-EPI). The CKD-EPI creatinine equation has not been validated in children (<18 years), women or in some racial or ethnic subgroups other than Caucasians and Americans. Testing performed or reported by [facility], a Service of [facility], [address] [place] [id number] John Muñiz MD, Overnight Stocker Blood (Blood, Venous) 08/03/2020 7:46 AM EDT 08/03/2020 7:49 AM EDT us London Boyer MD LAB BLOOD ORDERABLES Final Resul t [facility] * (ABNORMAL) CBC (08/03/2020 7:46 AM EDT) Pathologist [facility] White Blood Cells 6.3 (4.0-11.0) K/MM3 [facility] RBC 3.73(L) (4.20-5.40 ) M/MM3 [facility] Hgb 9.7(L) (11.7-15.5 ) GM/DL [facility] Hematocrit 34.5(L) (35.7-45.8 ) % [facility] MCV 92.5 (80.0-100. 0) FL [facility] MCH 26.0(L) (27.0-34.0 ) PG [facility] MCHC 28.1(L) (33.0-37.0 ) g/dL [facility] Platelets 262 (150-460) K/MM3 [facility] RDW-SD 59.2(H) (<47.0) FL [facility] MPV 12.1 (9.4-12.4) FL [facility] nRBC Count 0.3 #/100 WBC'S [facility] NRBC Absolute 0.0 K/MM3 [facility] Comment: Testing performed or reported by [facility], a Service of [facility], [address] [place] [address] John Muñiz MD, Overnight Stocker Blood (Blood, Venous) 08/03/2020 7:46 AM EDT 08/03/2020 7:49 AM EDT us London Boyer MD LAB BLOOD ORDERABLES Final Resul t [facility] documented in this encounter Visit Diagnoses Diagnosis Stage 3b chronic kidney disease (HCC) Essential hypertension documented in this encounter Care Teams Transition Social Worker Relationship Specialty Start Date End Date Marychuy Ríos MD [address] [place] [address] PCP - General Internal Medicine 11/03/20 documented as of this encounter
== END 2024-06-04 10:57 | disposition home or self-care (01) ==
PROVIDERS: PCP Physician Assistant; Visit Provider Internal Medicine Nephrology
DX: N25.81 Secondary hyperparathyroidism of renal origin (principal); I10 Essential (primary) hypertension; N18.31 Chronic kidney disease, stage 3a; N18.32 Chronic kidney disease, stage 3b; D63.1 Anemia in chronic kidney disease
CPT/HCPCS: 99214

== ENCOUNTER 2024-06-18 09:24 | Outpatient (AMB) | payer MEDICARE, MEDICAID, SELFPAY ==
--- NOTE | 2024-06-18 09:56 | HO.NEPHOV_ITS ---
Vital Signs 06/18/24 10:01 Height 5 ft 8 in Weight 169 lb 4 oz BMI 25.7 BP 150/90 H Blood Pressure Location Rt brachial Position Sitting Pulse 70 Pulse Source Pulse Oximeter Pulse Oximetry (%) 98 Oxygen Delivery Method Room Air Intake Visit Reasons: 3wk [id number] Senior Manufacturing Supervisor Required: No Accompanied by: Self / Same As Patient Allergies codeine Allergy (Intermediate, Verified 06/18/24 10:00) Nausea latex Allergy (Intermediate, Verified 06/18/24 10:00) Rash amoxicillin Allergy (Unknown, Verified 06/18/24 10:00) Unknown hydrochlorothiazide Allergy (Unknown, Verified 06/18/24 10:00) Unknown morphine Allergy (Unknown, Verified 06/18/24 10:00) Nausea SHAYY Inhibitors Adverse Reaction (Unknown, Verified 06/18/24 10:00) Unknown HPI Comments Details: Yecenia is a 74-year-old female with a PMH significant for?CAD s/p stenting 2018, hx of DVT with pulmonary embolism 2017 on Eliquis, HTN, HLD, CKD 3, chronic anemia requiring transfusions in the past, diet-controlled diabetes type 2, osteoarthritis, and chronic lower leg edema who recently presented to the ER wi th?chest pain and dizziness. She had some chest pain but experienced associated SOBE, increasing tiredness and fatigue. At that time she denied any nausea, vomiting, cough. Stool has been regular and brown-colored. Denied melena or hematochezia. She reported a positive Cologuard test 3-4 years ago but did not follow-up with colonoscopy due to transportation issues. Pt also reported unintentional weight loss of around 25 lb.In the ED pt was hypertensive up to 165/64, vitals otherwise stable and WNL. Labs were significant for H&H 5.2/18.9, initial troponin 24.0, BNP 368, and albumin 3.0 no leukocytosis. No significant electrolyte abnormalities. Creatinine 2.27, around baseline. Hepatic function WNL. TSH WNL. Of note, in the ED pt refused rectal examination to test stool for occult blood. Tested negative for flu, COVID, RSV. UA negative for UTI. CXR showed cardiomegaly with clear lungs. EKG demonstrated normal sinus rhythm with sinus arrhythmia, but no acute ischemic changes from prior. Pt was transfused 1 unit PRBCs in the ED and was admitted to the hospital for treatment and further evaluation of acute symptomatic blood loss anemia concerning for GI bleed.She received a total of 3 units of PRBCs and received treatment with Protonix IV. She underwent an EGD (05/12) that showed a normal esophagus and stomach. Duodenum has a 2 cm polypoid lesion, biopsy is were obtained; and no obvious evidence of bleeding. Colonoscopy could not be completed due to fair preparation. A CT enterography could not be performed due to patient's renal function. She will be scheduled for video capsule endoscopies on May. She will also need a colonoscopy within 6 months. Patient is to stop taking Eliquis 4 days before this procedure. She also received treatment with IV iron IV and Procrit SC (one dose on the day of discharge). Patient also expressed her frustration about ongoing right knee and leg pain and swelling afternoon undergoing intra-articular steroids prior to admission. She was seen by orthopedic service and underwent knee aspiration but only a scant quantity of fluid was removed; they recommended pain management as an outpatient. Patient has been refusing to have total replacement of her right knee as she has to care for her mother. Aspirin was restarted and dose decreased to 81 mg p.o. daily. She recently had pulomonary edema as well as anemia and was admitted in [facility] where she got diuresed, transfused and underwent colonoscopy. She still has edema. She was seen in follow up today. [facility] Medical History (Updated 06/18/24 @ 14:14 by London Boyer MD) Osteoarthritis Hx of transfusion of packed red blood cells Diet-controlled diabetes mellitus Pulmonary embolism DVT (deep venous thrombosis) CAD (coronary artery disease) Anemia in chronic kidney disease Hypertension CKD (chronic kidney disease) stage 3, GFR 30-59 ml/min Surgical History Hx of heart artery stent History of partial hysterectomy Social History Household Members: Family Housing: Apartment Do you presently have visiting nurse or other home services: No Alcohol intake: never Patient Tobacco Use Status: Former Tobacco user service: No Review of Systems Const All systems reviewed & are unremarkable except as noted in HPI and below Physical Exam Vital Signs: Last Vital Signs Pulse 70 06/18/24 10:01 BP 170/102 H 06/18/24 10:01 Pulse Ox 98 06/18/24 10:01 Oxygen Delivery Method Room Air 06/18/24 10:01 BMI result Body Mass Index 25.7 Const General: no acute distress Orientation/consciousness: patient oriented x3 Eyes EOM: EOMs intact bilaterally Neck Neck: Yes supple Resp Auscultation: diminished lung sounds Cardio Rate: regular rate GI Palpation (GI): Soft to palpation Skin General skin exam: no rashes or lesions noted Neuro General: patient oriented x3 Extrem General: Yes edema Assessment & Plan Assessment & Plan (1) CKD (chronic kidney disease) stage 3, GFR 30-59 ml/min: Code(s): N18.30 - Chronic kidney disease, stage 3 unspecified Category: Medical Qualifiers: Chronic kidney disease stage 3 subtype: stage 3a (GFR 45-59) Qualified Code(s): N18.31 - Chronic kidney disease, stage 3a (2) Hypertension: Code(s): I10 - Essential (primary) hypertension Category: Medical Qualifiers: Hypertension type: primary hypertension Qualified Code(s): I10 - Essential (primary) hypertension (3) Anemia in chronic kidney disease: Code(s): N18.9 - Chronic kidney disease, unspecified; D63.1 - Anemia in chronic kidney disease Category: Medical Qualifiers: Chronic kidney disease stage: stage 3 (moderate) Chronic kidney disease stage 3 subtype: stage 3b (GFR 30-44) Qualified Code(s): N18.32 - Chronic kidney disease, stage 3b; D63.1 - Anemia in chronic kidney disease (4) Iron deficiency: Code(s): E61.1 - Iron deficiency Category: Medical (5) Edema: Code(s): R60.9 - Edema, unspecified Category: Medical Qualifiers: Edema type: localized Qualified Code(s): R60.0 - Localized edema Plan Yecenia has chronic kidney disease and longstanding hypertension. 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 She is known to have coronary artery disease and has undergone angioplasty and stenting. She had lower endoscopy . She has seen GI and has a F/U . I have increased her lasix to 40 mg bid. She may also need Hematology consult +/- bone marrow biopsy. She needs to maintain low-sodium & K diet. Follow up blood work ordered. Answered all questions Orders: Orders Creatinine 2 Weeks D63.1 - Anemia in chronic kidney disease, E61.1 - Iron deficiency, I10 - Essential (primary) hypertension, N18.31 - Chronic kidney disease, stage 3a, N18.32 - Chronic kidney disease, stage 3b Blood Urea Nitrogen 2 Weeks D63.1 - Anemia in chronic kidney disease, E61.1 - Iron deficiency, I10 - Essential (primary) hypertension, N18.31 - Chronic kidney disease, stage 3a, N18.32 - Chronic kidney disease, stage 3b Electrolytes 2 Weeks D63.1 - Anemia in chronic kidney disease, E61.1 - Iron deficiency, I10 - Essential (primary) hypertension, N18.31 - Chronic kidney disease, stage 3a, N18.32 - Chronic kidney disease, stage 3b Complete Blood Count Auto Diff 2 Weeks D63.1 - Anemia in chronic kidney disease, E61.1 - Iron deficiency, I10 - Essential (primary) hypertension, N18.31 - Chronic kidney disease, stage 3a, N18.32 - Chronic kidney disease, stage 3b Referrals Infusion Center Notification E61.1 - Iron deficiency Medications: Changed From furosemide 20 mg PO DAILY 90 tabs 0RF To furosemide 40 mg (2 x 20 mg) PO BID 90 tabs 5RF Coding Level of Care Code Est Pt Level 4 (32656) Diagnoses Stage 3a chronic kidney disease N18.31 Chronic kidney disease stage 3 subtype: stage 3a (GFR 45-59) Primary hypertension I10 Hypertension type: primary hypertension Anemia in stage 3b chronic kidney disease N18.32; D63.1 Chronic kidney disease stage: stage 3 (moderate) Chronic kidney disease stage 3 subtype: stage 3b (GFR 30-44) Iron deficiency E61.1 Localized edema R60.0 Edema type: localized
[2024-06-18 10:01] VITALS: BP 150/90; PULSE 70; O2SAT 98; BMI 25.7
--- OUTSIDE RECORDS SUMMARY | 2024-06-18 10:04 | XMS_ITS | Clinical Summary ---
Author Organization [facility] Address [address] [place] [address] Phone Care Team Providers Care Heating Operators Engineer Name Role Phone Marychuy Ríos MD Primary Care Provider [phone] Allergies Active Allergy Reactions Criticality Noted Date [...] Medicaid [place] Care Teams Heating Operators Engineer Relationship Specialty Start Date End Date Marychuy Ríos MD [address] [place] [id number] PCP - General Internal Medicine 11/03/20
--- OUTSIDE RECORDS SUMMARY | 2024-06-18 10:04 | XMS_ITS | Encounter Summary ---
Author Organization [facility] Address [address] [place] [address] 7 [place] [address] Care Team Providers Care Storage Consultant Name Role Phone Unavailable Primary Care Provider [...]
--- OUTSIDE RECORDS SUMMARY | 2024-06-18 10:04 | XMS_ITS | Encounter Summary ---
Author Organization [facility] Address [address] [place] [address] Phone Care Team Providers Care Intertype Operator Name Role Phone Marychuy Ríos MD Primary Care Provider [phone] Encounter Details Date Type Department Care Team (Late st Contact Info) Description 09/01/2020 Orders Only [facility] [address] [place] [address] London Boyer MD Stage 3b chronic [...] 7:46 AM EDT) Glucose 113(H) (70-99) MG/DL [facility] BUN 42(H) (8-23) MG/DL [facility] Creatinine 2.0(H) (0.5-1.0) MG/DL [facility] Sodium 141 (133-145) MMOL/L [facility] Potassium 5.1 (3.6-5.2) MMOL/L [facility] Chloride 106 (98-107) MMOL/L [facility] Bicarbonate (CO2) 23 (22-29) MMOL/L [facility] Anion Gap 12 (4-17) [facility] Albumin 4.2 (3.4-4.8) GM/DL [facility] Calcium 9.5 (8.6-10.5) MG/DL [facility] Phosphorus, Serum 3.8 (2.5-4.5) MG/DL [facility] Est GFR Non 25 ML/MIN/1.7 3 M2 [facility] Comment: Creatinine based estimated glomerular filtration rate (eGFR) is calculated using the Chronic Kidney Disease Epidemiology Collaboration (CKD-EPI). The CKD-EPI creatinine equation has not been validated in children (<18 years), women or in some racial or ethnic subgroups other than Caucasians and Americans. EST GFR 29 ML/MIN/1.7 3 M2 [facility] Comment: Creatinine based estimated glomerular filtration rate (eGFR) is calculated using the Chronic Kidney Disease Epidemiology Collaboration (CKD-EPI). The CKD-EPI creatinine equation has not been validated in children (<18 years), women or in some racial or ethnic subgroups other than Caucasians and Americans. Testing performed or reported by [facility], a Service of [facility], [address] [place] [id number] John Muñiz MD, Sales Department Clerk Blood (Blood, Venous) 08/03/2020 7:46 AM EDT 08/03/2020 7:49 AM EDT us London Boyer MD LAB BLOOD ORDERABLES Final Resul t [facility] * (ABNORMAL) CBC (08/03/2020 7:46 AM EDT) Pathologist [facility] White Blood Cells 6.3 (4.0-11.0) K/MM3 [facility] RBC 3.73(L) (4.20-5.40 ) M/MM3 [facility] Hgb 9.7(L) (11.7-15.5 ) GM/DL [facility] Hematocrit 34.5(L) (35.7-45.8 ) % [facility] MCV 92.5 (80.0-100. 0) FL [facility] MCH 26.0(L) (27.0-34.0 ) PG [facility] MCHC 28.1(L) (33.0-37.0 ) g/dL [facility] Platelets 262 (150-460) K/MM3 [facility] RDW-SD 59.2(H) (<47.0) FL [facility] MPV 12.1 (9.4-12.4) FL [facility] nRBC Count 0.3 #/100 WBC'S [facility] NRBC Absolute 0.0 K/MM3 [facility] Comment: Testing performed or reported by [facility], a Service of [facility], [address] [place] [address] John Muñiz MD, Sales Department Clerk Blood (Blood, Venous) 08/03/2020 7:46 AM EDT 08/03/2020 7:49 AM EDT us London Boyer MD LAB BLOOD ORDERABLES Final Resul t [facility] documented in this encounter Visit Diagnoses Diagnosis Stage 3b chronic kidney disease (HCC) Essential hypertension documented in this encounter Care Teams Intertype Operator Relationship Specialty Start Date End Date Marychuy Ríos MD [address] [place] [address] PCP - General Internal Medicine 11/03/20 documented as of this encounter
--- OUTSIDE RECORDS SUMMARY | 2024-06-18 10:04 | XMS_ITS | Clinical Summary ---
Author Organization [employer] [facility] Address [address] [place] [address] Care Team Providers Care Patient'S Librarian Name Role Phone Unavailable Primary Care Provider [...]
--- OUTSIDE RECORDS SUMMARY | 2024-06-18 10:04 | XMS_ITS | Encounter Summary ---
Author Organization [facility] Address [address] [place] [address] 7 [place] [address] Care Team Providers Care Outreach Associate Name Role Phone Unavailable Primary Care Provider [...]
== END 2024-06-18 10:49 | disposition home or self-care (01) ==
LOC: HO.HKA 09:24
PROVIDERS: PCP Physician Assistant; Visit Provider Internal Medicine Nephrology
DX: N18.31 Chronic kidney disease, stage 3a (principal); I10 Essential (primary) hypertension; N18.32 Chronic kidney disease, stage 3b; D63.1 Anemia in chronic kidney disease; E61.1 Iron deficiency; R60.0 Localized edema
CPT/HCPCS: 99214

== ENCOUNTER → 2024-06-18 09:24 | Outpatient (BNVA) | payer MEDICARE, MEDICAID, SELFPAY | PROVIDERS: PCP Physician Assistant; Visit Provider Internal Medicine Nephrology | DX: I12.9 Hypertensive chronic kidney disease with stage 1 through stage 4 chronic kidney disease, or unspecified chronic kidney disease (principal); N18.32 Chronic kidney disease, stage 3b; D63.1 Anemia in chronic kidney disease; E61.1 Iron deficiency; R60.0 Localized edema | CPT/HCPCS: 99212 ==

== ENCOUNTER 2024-07-02 10:59 | Outpatient (REF) | payer MEDICARE, MEDICAID, SELFPAY ==
--- OUTSIDE RECORDS SUMMARY | 2024-07-02 12:02 | XMS_ITS | Clinical Summary ---
Author Organization [facility] Address [address] [place] [address] Phone Care Team Providers Care Organic Section Technical Lead Name Role Phone Marychuy Ríos MD Primary Care Provider [phone] Allergies Active Allergy Reactions Criticality Noted Date [...] Medicaid [place] Medicare [place] Care Teams Organic Section Technical Lead Relationship Specialty Start Date End Date Marychuy Ríos MD [address] [place] [phone] PCP - General Internal Medicine 11/03/20
--- OUTSIDE RECORDS SUMMARY | 2024-07-02 12:02 | XMS_ITS | Encounter Summary ---
Author Organization [employer] [facility] Address [address] [place] [address] Care Team Providers Care Aquatics Lifeguard Name Role Phone Unavailable Primary Care Provider [...]
--- OUTSIDE RECORDS SUMMARY | 2024-07-02 12:02 | XMS_ITS | Encounter Summary ---
Author Organization [facility] Address [address] [place] [address] Phone Care Team Providers Care Glaze Handler Name Role Phone Marychuy Ríos MD Primary Care Provider [phone] Encounter Details Date Type Department Care Team (Late st Contact Info) Description 09/01/2020 Orders Only [facility] [address] [place] [address] London Boyer MD Stage 3b chronic [...] 7:46 AM EDT) Glucose 113(H) (70-99) MG/DL [facility] BUN 42(H) (8-23) MG/DL [facility] Creatinine 2.0(H) (0.5-1.0) MG/DL [facility] Sodium 141 (133-145) MMOL/L [facility] Potassium 5.1 (3.6-5.2) MMOL/L [facility] Chloride 106 (98-107) MMOL/L [facility] Bicarbonate (CO2) 23 (22-29) MMOL/L [facility] Anion Gap 12 (4-17) [facility] Albumin 4.2 (3.4-4.8) GM/DL [facility] Calcium 9.5 (8.6-10.5) MG/DL [facility] Phosphorus, Serum 3.8 (2.5-4.5) MG/DL [facility] Est GFR Non 25 ML/MIN/1.7 3 M2 [facility] Comment: Creatinine based estimated glomerular filtration rate (eGFR) is calculated using the Chronic Kidney Disease Epidemiology Collaboration (CKD-EPI). The CKD-EPI creatinine equation has not been validated in children (<18 years), women or in some racial or ethnic subgroups other than Caucasians and Americans. EST GFR 29 ML/MIN/1.7 3 M2 [facility] Comment: Creatinine based estimated glomerular filtration rate (eGFR) is calculated using the Chronic Kidney Disease Epidemiology Collaboration (CKD-EPI). The CKD-EPI creatinine equation has not been validated in children (<18 years), women or in some racial or ethnic subgroups other than Caucasians and Americans. Testing performed or reported by [facility], a Service of [facility], [address] [place] [id number] Jhon Muñiz MD, Senior Designer Blood (Blood, Venous) 08/03/2020 7:46 AM EDT 08/03/2020 7:49 AM EDT us London Boyer MD LAB BLOOD ORDERABLES Final Resul t [facility] * (ABNORMAL) CBC (08/03/2020 7:46 AM EDT) Pathologist [facility] White Blood Cells 6.3 (4.0-11.0) K/MM3 [facility] RBC 3.73(L) (4.20-5.40 ) M/MM3 [facility] Hgb 9.7(L) (11.7-15.5 ) GM/DL [facility] Hematocrit 34.5(L) (35.7-45.8 ) % [facility] MCV 92.5 (80.0-100. 0) FL [facility] MCH 26.0(L) (27.0-34.0 ) PG [facility] MCHC 28.1(L) (33.0-37.0 ) g/dL [facility] Platelets 262 (150-460) K/MM3 [facility] RDW-SD 59.2(H) (<47.0) FL [facility] MPV 12.1 (9.4-12.4) FL [facility] nRBC Count 0.3 #/100 WBC'S [facility] NRBC Absolute 0.0 K/MM3 [facility] Comment: Testing performed or reported by [facility], a Service of [facility], [address] [place] [address] John Muñiz MD, Senior Designer Blood (Blood, Venous) 08/03/2020 7:46 AM EDT 08/03/2020 7:49 AM EDT us London Boyer MD LAB BLOOD ORDERABLES Final Resul t [facility] documented in this encounter Visit Diagnoses Diagnosis Stage 3b chronic kidney disease (HCC) Essential hypertension documented in this encounter Care Teams Glaze Handler Relationship Specialty Start Date End Date Marychuy Ríos MD [address] [place] [address] PCP - General Internal Medicine 11/03/20 documented as of this encounter
--- OUTSIDE RECORDS SUMMARY | 2024-07-02 12:02 | XMS_ITS | Encounter Summary ---
Author Organization [facility] Address [address]t [place] [address] Care Team Providers Care Clinical Sales Consultant Name Role Phone Unavailable Primary Care [...]
--- OUTSIDE RECORDS SUMMARY | 2024-07-02 12:02 | XMS_ITS | Clinical Summary ---
Author Organization [employer] Address [address] [place] [address] Care Team Providers Care Annealing Furnace Tender Name Role Phone Unavailable Primary Care Provider [...] Most Recently Relevant to Health Maintenance Insurance [facility] MED[facility]ID STAND ADULT
[2024-07-02 12:39] LABS: MANUAL DIFF FLAG NO
[2024-07-02 13:11] LABS: Basophils Percent Auto 0.3 % (0-2); Eosinophils Percent Auto 0.5 % (0-4); Hematocrit 30.1 % (37.0-47.0); Hemoglobin 9.3 g/dl (12.0-16.0); Imm Gran Abs Auto 0.03 X10*3/uL (0.00-0.03); Imm Gran Pct Auto 0.4 % (0.0-0.4); Lymphocytes Absolute Auto 0.8 X10*3/uL (1.2-4.9); Lymphocytes Percent Auto 10.6 % (20-40); Mean Corpuscular HGB Conc 30.9 g/dl (31.0-35.0); Mean Corpuscular Hemoglobin 26.5 pg (27.0-33.0); Mean Corpuscular Volume 85.8 fL (80.0-98.0); Mean Platelet Volume 10.3 fL (9.4-12.3); Monocytes Absolute Auto 0.3 X10*3/uL (0.1-1.2); Monocytes Percent Auto 4.2 % (2-11); Neutrophils Absolute Auto 6.6 x10*3/uL (2.0-8.3); Platelet Count 281 X10*3/uL (160-400); Red Blood Count 3.51 X10*6/uL (4.20-5.50); Red Cell Distribution Width 16.8 % (11.0-16.0); White Blood Count 7.8 X10*3/uL (4.8-10.8)
[2024-07-02 13:34] LABS: Anion Gap 15 (12-20); Blood Urea Nitrogen 52 mg/dL (9-16); Carbon Dioxide 27 mmol/L (22-29); Chloride 105 mmol/L (96-108); Estimated Glomerular Filt Rate 18; Potassium 4.3 mmol/L (3.3-5.1); Sodium 143 mmol/L (135-145)
== END 2024-07-02 11:00 | disposition home or self-care (01) ==
LOC: HO.LAB 10:59
PROVIDERS: PCP Physician Assistant; Visit Provider Internal Medicine Nephrology
DX: M17.11 Unilateral primary osteoarthritis, right knee (principal); E61.1 Iron deficiency; I12.9 Hypertensive chronic kidney disease with stage 1 through stage 4 chronic kidney disease, or unspecified chronic kidney disease; N18.31 Chronic kidney disease, stage 3a; I25.811 Atherosclerosis of native coronary artery of transplanted heart without angina pectoris; I73.9 Peripheral vascular disease, unspecified; Z86.711 Personal history of pulmonary embolism
CPT/HCPCS: 36415; 80051; 82565; 84520; 85025; 96127; 99202

== ENCOUNTER 2024-07-02 12:55 | Outpatient (AMB) | payer MEDICARE, MEDICAID, SELFPAY ==
--- NOTE | 2024-07-02 12:58 | A.OFFPC_ITS ---
Vital Signs 07/02/24 13:16 Height 5 ft 8 in Weight 159 lb 2.78 oz BMI 24.2 BP 150/80 H Blood Pressure Location Lt brachial Position Sitting Respiration 15 Pulse 62 Pulse Source Pulse Oximeter Temp 97.1 F Temp Source Temporal Artery Scan Pulse Oximetry (%) 98 Oxygen Delivery Method Room Air Intake Visit Reasons: establish care/double book okay per Roe Beef Pluck Trimmer Required: No Accompanied by: Self / Same As Patient Allergies codeine Allergy (Intermediate, Verified 07/04/24 11:07) Nausea latex Allergy (Intermediate, Verified 07/04/24 11:07) Rash amoxicillin Allergy (Unknown, Verified 07/04/24 11:07) Unknown hydrochlorothiazide Allergy (Unknown, Verified 07/04/24 11:07) Unknown morphine Allergy (Unknown, Verified 07/04/24 11:07) Nausea SHAYY Inhibitors Adverse Reaction (Unknown, Verified 07/04/24 11:07) Unknown Medication List - Last Reconciled 07/02/24 by Baldomero Roy PA-C acetaminophen 1,500 mg PO DAILY PRN apixaban (Eliquis) 2.5 mg PO BID ascorbate calcium (vitamin C) 1 g PO BEDTIME aspirin 81 mg PO DAILY cholecalciferol (vitamin D3) 10 mcg PO DAILY clonidine HCl 0.1 mg PO TID furosemide 40 mg (2 x 20 mg) PO BID gabapentin mg PO isosorbide mononitrate ER 30 mg PO TID leg brace (Knee Support Brace) As directed Right hinged knee brace Dx: osteoarthritis knee mecobalamin (vitamin B12) 1,000 mcg PO DAILY metoprolol tartrate 50 mg PO BID oxycodone 10 mg PO Q6H PRN prednisone 10 mg PO DAILY HPI establish care/double book mary per Roe HPI Details Patient is a 74-year-old female here today for new patient visit. Has not seen a primary care in quite some time. Patient has a is complex medical history significant for DVT with pulmonary embolism in 2017 on Eliquis, hypertension, hyperlipidemia, end-stage renal disease, chronic anemia requiring multiple transfusions, CAD and osteoarthritis. .. CKD stage 4: Followed by Nephrology, patient recently found to be very anemic and was hospitalized at [facility] and received blood transfusions. She reports this was in the setting of taking a lot of NSAIDs and aspirin due to her knee pain. Most recent hemoglobin improved in stable at 9. .. Coronary artery disease: Has coronary heart stent placement many years ago. She is followed by a shock absorption floor layer. Currently not on statin therapy. Goal LDL is to be below 70 .. Knee osteoarthritis: Continues to significant arthritic pain in her knee to which she has tried topical analgesics and Tylenol without much relief. She is unable take NSAIDs due to contraindications of anticoagulation. She is interested in seeing pain management for pain reduction modality .. Pulmonary embolism (in 2017)- unclear cause of patient's thromboembolism. [facility] Medical History CAD (coronary artery disease) Osteoarthritis Hx of transfusion of packed red blood cells Diet-controlled diabetes mellitus Pulmonary embolism DVT (deep venous thrombosis) Anemia in chronic kidney disease Hypertension CKD (chronic kidney disease) stage 3, GFR 30-59 ml/min Surgical History Hx of heart artery stent History of partial hysterectomy Social History Household Members: Family Housing: Apartment Do you presently have visiting nurse or other home services: No Alcohol intake: never Patient Tobacco Use Status: Former Tobacco user service: No Questionnaire PHQ-9 Over the last 2 weeks, how often have you been bothered by any of the following problems? 1. Little interest or pleasure in doing things: not at all 2. Feeling down, depressed, or hopeless: not at all 3. Trouble falling or staying asleep, or sleeping too much: not at all 4. Feeling tired or having little energy: not at all 5. Poor appetite or overeating: not at all 6. Feeling bad about yourself - or that you are a failure or have let yourself or your family down: not at all 7. Trouble concentrating on things, such as reading the newspaper or watching television: not at all 8. Moving or speaking so slowly that other people could have noticed. Or the opposite - being so fidgety or restless that you have been moving around a lot more than usual: not at all 9. Thoughts that you would be better off or of hurting yourself in some way: not at all Total score: 0 Depression Screening Interpretation: Negative Depression Screening Done: Yes 74471 - PHQ-9 Billing: Yes Source: Developed by Drs. Raphael Beyer, Josiane Soto, Gerry Burdick and colleagues, with an educational usama from [email or web address]. Thrive Questionnaire Date Thrive assessed: 07/02/24 I am a: Patient What is your living situation today?: I have a steady place to live Within the past 12 months, did the food you bought not last and you didn't have the money to get more?: Never true Within the past 12 months, did you worry whether your food would run out before you got money to buy more?: Never true Do you have trouble paying for medicines?: No Do you have trouble getting transportation to medical appointments?: No Do you have trouble paying your heating and electricity bill?: No Do you have trouble taking care of your child, family member or friend?: Yes Do you have trouble with day-to-day activities such as bathing, preparing meals, shopping, managing finances, etc.?: No Are you currently unemployed and looking for a job?: No Are you interested in more education?: No Please select the resources that you would like help with: None Currently or been in a relationship where the following occur: No concerns reported THRIVE Score: 0 AUDIT C Alcohol Use Questionnaire (AUDIT-C) 1. How often do you have a drink containing alcohol?: Monthly or less 2. How many drinks containing alcohol do you have on a typical day when you are drinking?: 1 or 2 3. How often do you have six or more drinks on one occasion?: Never Total Score: 1 SHELIA-7 AMB Questionnaire SHELIA-7 Date SHELIA - 7 assessed: 07/02/24 Feeling nervous, anxious, or on edge: 1 = Several days Not being able to stop or control worryin = Not at all Worrying too much about different things: 0 = Not at all Trouble relaxin = Not at all Being so restless that it is hard to sit still: 0 = Not at all Becoming easily annoyed or irritable: 0 = Not at all Feeling afraid as if something awful might happen: 0 = Not at all Total SHELIA-7 score (0-4 normal; 5-9 mild; 10-14 moderate; 15-21 severe): 1 Source: Developed by Drs. Raphael Beyer, Josiane Soto, Gerry Burdick and colleagues, with an educational usama from [email or web address]. SHELIA-7 Assessment Billing SHELIA-7 Assessment Tool: SHELIA-7 Assessment 92038 Review of Systems Const Denies headache(s) Eyes Denies loss of vision ENT Denies vertigo, Denies dizziness, Denies headache(s) and Denies sore throat Card Denies chest pain, Denies leg edema and Denies lightheadedness Resp Denies cough, Denies hemoptysis and Denies wheezing GI Denies abdominal pain, Denies melena, Denies constipation, Denies diarrhea and Denies vomiting Denies urinary frequency, Denies dysuria and Denies urinary urgency Musc Denies arthralgias, Denies joint swelling, Denies numbness and Denies tingling Neuro Denies Abnormal speech present, Denies behavioral changes, Denies vertigo, Denies dizziness, Denies headache(s), Denies loss of vision, Denies memory loss, Denies numbness and Denies tingling Psych Denies anxiety, Denies behavioral changes, Denies depression, Denies memory loss and Denies panic attacks Marcus/Lymph Denies easy bleeding and Denies easy bruising Aller/Immun Denies wheezing Physical exam (Primary Care) Vital Signs: Last Vital Signs Temp 97.1 F 07/02/24 13:16 Pulse 62 07/02/24 13:16 Resp 15 07/02/24 13:16 BP 150/80 H 07/02/24 13:16 Pulse Ox 98 07/02/24 13:16 Oxygen Delivery Method Room Air 07/02/24 13:16 BMI result Body Mass Index 24.2 Tobacco/Smoking Status: Tobacco use Status Patient Tobacco Use Status Former Tobacco user 07/02/24 12:59 PHQ-9: PHQ-9 Score PHQ-9: Total score 0 07/02/24 13:38 Depression Screening Interpretation: Negative Thrive Assessment: Date of Thrive Assessment Date Thrive assessed 07/02/24 07/02/24 13:15 Currently or been in a relationship where the following occur: No concerns reported Const General: healthy appearing, no acute distress, alert and awake Nutritional Appearance: well nourished Orientation/consciousness: oriented to person, oriented to place and oriented to time HENMT Ears: TM's normal bilaterally General nose exam: Normal nasal mucous membranes and turbinates present Eyes Conjunctivae: conjunctivae normal Sclerae: sclerae normal Pupils: Equal, round and reactive pupils present Neck Neck: Yes no lymphadenopathy and Yes no JVD Thyroid: Thyroid normal Carotids: no bruits Resp Effort & Inspection: normal respiratory effort and not tachypneic Auscultation: no crackles, no rales, no rhonchi and no wheezes Cardio Rate: regular rate Rhythm: regular rhythm Heart sounds: no murmurs and normal S1 and S2 GI Palpation (GI): Soft to palpation, nontender, no hepatomegaly and no splenomegaly Auscultation: normal bowel sounds Skin General skin exam: no rashes or lesions noted and dry skin Neuro General: oriented to person, oriented to place and oriented to time Cranial nerves: Yes Equal, round and reactive pupils present Speech: No Abnormal speech present Gait exam (Neuro): Normal gait present Motor exam (neuro): no tremor noted Extrem Right upper extremity: full ROM Left upper extremity: full ROM Right lower extremity: full ROM; no edema Left lower extremity: full ROM; no edema Psych Mental Status: mental status grossly normal Speech and movement: Normal speech and movement present Affect: normal affect Attitude: cooperative Thought process: Normal thought process present Coding Level of Care Code New Pt Level 4 (81576) Diagnoses Primary osteoarthritis of right knee M17.11 Osteoarthritis type: primary Iron deficiency E61.1 Primary hypertension I10 Hypertension type: primary hypertension Stage 3a chronic kidney disease N18.31 Chronic kidney disease stage 3 subtype: stage 3a (GFR 45-59) Chronic pulmonary embolism without acute cor pulmonale, unspecified pulmonary embolism type I27.82 Acute cor pulmonale presence: without acute cor pulmonale Chronicity: chronic Pulmonary embolism type: unspecified PVD (peripheral vascular disease) I73.9 Coronary artery disease 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 artery [place] vs. transplanted heart: transplanted heart Additional Codes SHELIA-7 Assessment Billing - SHELIA-7 Assessment Tool: SHELIA-7 Assessment 74170 ([id number]) PHQ-9 - 06406 - PHQ-9 Billing: Yes ([id number]) Assessment & Plan Assessment & Plan (1) Osteoarthritis of right knee: Comment: Uncontrolled knee pain. She has failed 1 cortisone injection and hyaluronic acid injection, gel 1. We discussed medical management of knee osteoarthritis. She has temporary benefit with Tylenol. Pain is uncontrolled and she would not be able to participate in physical therapy. We discussed the importance of bracing and trying to control edema in legs to enable improved ambulation. We discussed in setting of CKD she has limited with medications to use. Contraindication to oral NSAIDs and duloxetine. We discussed considering gabapentin. Discussed side effects, benefits and drug monitoring. We also discussed considering geniculate nerve block with pain management referral. She would like to proceed with trying gabapentin. Code(s): M17.11 - Unilateral primary osteoarthritis, right knee Category: Medical Qualifiers: Osteoarthritis type: primary Qualified Code(s): M17.11 - Unilateral primary osteoarthritis, right knee Plan: As per HPI patient interested in seeing pain management for pain reduction modality. We discuss perhaps increasing dose of gabapentin to help her pain. She does take low-dose oxycodone from time to time for pain scales of 9-10. Again a candidate to take NSAIDs due to her current anticoagulation use and history anemia. (2) Iron deficiency: Code(s): E61.1 - Iron deficiency Category: Medical Plan: As per HPI (3) Hypertension: Code(s): I10 - Essential (primary) hypertension Category: Medical Qualifiers: Hypertension type: primary hypertension Qualified Code(s): I10 - Essential (primary) hypertension Plan: Patient's blood pressure acceptable today in office. Will continue her current dose of antihypertensive medication with goal blood pressure to remain below 140/90 (4) CKD (chronic kidney disease) stage 3, GFR 30-59 ml/min: Code(s): N18.30 - Chronic kidney disease, stage 3 unspecified Category: Medical Qualifiers: Chronic kidney disease stage 3 subtype: stage 3a (GFR 45-59) Qualified Code(s): N18.31 - Chronic kidney disease, stage 3a Plan: Patient followed by Nephrology. (5) Pulmonary embolism: Comment: 2017 Code(s): I26.99 - Other pulmonary embolism without acute cor pulmonale Category: Medical Qualifiers: Acute cor pulmonale presence: without acute cor pulmonale Chronicity: chronic Pulmonary embolism type: unspecified Qualified Code(s): I27.82 - Chronic pulmonary embolism Plan: As per HPI patient suffered a pulmonary embolism in 2017. Unclear cause. She would like to see Hematology for further evaluation in need for further anticoagulation. (6) PVD (peripheral vascular disease): Code(s): I73.9 - Peripheral vascular disease, unspecified Category: Medical Plan: Patient does chronic edema in bilateral ankles. She does have hyperpigmented skin changes. She would like to see vascular surgeon for evaluation and possible treatment. (7) CAD (coronary artery disease): Code(s): I25.10 - Atherosclerotic heart disease of [place] coronary artery without angina pectoris Category: Medical Qualifiers: Associated angina: without angina Coronary Disease-Associated Artery/Lesion type: [place] artery [place] vs. transplanted heart: transplanted heart Qualified Code(s): I25.811 - Atherosclerosis of [place] coronary artery of transplanted heart without angina pectoris Plan: Patient does report having coronary artery stents. She is followed by a shock absorption floor layer. Unclear if she is taking statin therapy at this time though LDL optimally be below 70 due to her history of coronary artery disease Orders: Orders Comprehensive [place]. Panel Fast 07/02/24 I10 - Essential (primary) hypertension Complete Blood Count no Diff 07/02/24 I10 - Essential (primary) hypertension Lipid Panel 07/02/24 I25.811 - Atherosclerosis of [place] coronary artery of transplanted heart without angina pectoris IRON PROFILE 07/02/24 D50.9 - Iron deficiency anemia, unspecified, E61.1 - Iron deficiency Referrals Hematology & Oncology Referral I27.82 - Chronic pulmonary embolism Vascular Surgery Referral I73.9 - Peripheral vascular disease, unspecified Pain Management Referral M17.11 - Unilateral primary osteoarthritis, right knee Orthopedics Referral M17.11 - Unilateral primary osteoarthritis, right knee Medications: Refilled oxycodone Partial Fill upon patient request. 10 mg PO Q6H PRN 15 tabs 0RF knee pain M17.11 - Unilateral primary osteoarthritis, right knee
--- OUTSIDE RECORDS SUMMARY | 2024-07-02 13:12 | XMS_ITS | Clinical Summary ---
Author Organization [employer] Address [address] [facility] [address] [place] [address] Care Team Providers Care Solar Photovoltaic Installer Name Role Phone Unavailable Primary Care Provider [...] Most Recently Relevant to Health Maintenance Insurance [facility] MEDICAID STAND ADULT
--- OUTSIDE RECORDS SUMMARY | 2024-07-02 13:12 | XMS_ITS | Encounter Summary ---
Author Organization [facility] Address [address] [facility] [address] [place] [address] Care Team Providers Care Cutter Tender Name Role Phone Unavailable Primary Care [...]
--- OUTSIDE RECORDS SUMMARY | 2024-07-02 13:12 | XMS_ITS | Encounter Summary ---
Author Organization [facility] Address [address] [place] [address] Phone Care Team Providers Care Developmental Specialist Name Role Phone Marychuy Ríos MD Primary Care Provider [phone] Encounter Details Date Type Department Care Team (Late st Contact Info) Description 09/01/2020 Orders Only [facility] [address] [place] [address] London Boyer MD Stage 3b chronic [...] 7:46 AM EDT) Glucose 113(H) (70-99) MG/DL [facility] BUN 42(H) (8-23) MG/DL [facility] Creatinine 2.0(H) (0.5-1.0) MG/DL [facility] Sodium 141 (133-145) MMOL/L [facility] Potassium 5.1 (3.6-5.2) MMOL/L [facility] Chloride 106 (98-107) MMOL/L [facility] Bicarbonate (CO2) 23 (22-29) MMOL/L [facility] Anion Gap 12 (4-17) [facility] Albumin 4.2 (3.4-4.8) GM/DL [facility] Calcium 9.5 (8.6-10.5) MG/DL [facility] Phosphorus, Serum 3.8 (2.5-4.5) MG/DL [facility] Est GFR Non 25 ML/MIN/1.7 3 M2 [facility] Comment: Creatinine based estimated glomerular filtration rate (eGFR) is calculated using the Chronic Kidney Disease Epidemiology Collaboration (CKD-EPI). The CKD-EPI creatinine equation has not been validated in children (<18 years), women or in some racial or ethnic subgroups other than Caucasians and Americans. EST GFR 29 ML/MIN/1.7 3 M2 [facility] Comment: Creatinine based estimated glomerular filtration rate (eGFR) is calculated using the Chronic Kidney Disease Epidemiology Collaboration (CKD-EPI). The CKD-EPI creatinine equation has not been validated in children (<18 years), women or in some racial or ethnic subgroups other than Caucasians and Americans. Testing performed or reported by [facility], a Service of [facility], [address] [place] [id number] John Muñiz MD, Highway Maintenance Crew Worker Blood (Blood, Venous) 08/03/2020 7:46 AM EDT 08/03/2020 7:49 AM EDT us London Boyer MD LAB BLOOD ORDERABLES Final Resul t [facility] * (ABNORMAL) CBC (08/03/2020 7:46 AM EDT) Pathologist [facility] White Blood Cells 6.3 (4.0-11.0) K/MM3 [facility] RBC 3.73(L) (4.20-5.40 ) M/MM3 [facility] Hgb 9.7(L) (11.7-15.5 ) GM/DL [facility] Hematocrit 34.5(L) (35.7-45.8 ) % [facility] MCV 92.5 (80.0-100. 0) FL [facility] MCH 26.0(L) (27.0-34.0 ) PG [facility] MCHC 28.1(L) (33.0-37.0 ) g/dL [facility] Platelets 262 (150-460) K/MM3 [facility] RDW-SD 59.2(H) (<47.0) FL [facility] MPV 12.1 (9.4-12.4) FL [facility] nRBC Count 0.3 #/100 WBC'S [facility] NRBC Absolute 0.0 K/MM3 [facility] Comment: Testing performed or reported by [facility], a Service of [facility], [address] [place] [address] John Muñiz MD, Highway Maintenance Crew Worker Blood (Blood, Venous) 08/03/2020 7:46 AM EDT 08/03/2020 7:49 AM EDT us London Boyer MD LAB BLOOD ORDERABLES Final Resul t [facility] documented in this encounter Visit Diagnoses Diagnosis Stage 3b chronic kidney disease (HCC) Essential hypertension documented in this encounter Care Teams Developmental Specialist Relationship Specialty Start Date End Date Marychuy Ríos MD [address] [place] [address] PCP - General Internal Medicine 11/03/20 documented as of this encounter
--- OUTSIDE RECORDS SUMMARY | 2024-07-02 13:12 | XMS_ITS | Clinical Summary ---
Author Organization [facility] Address [address] [place] [address] Phone Care Team Providers Care Pilot Instructor Name Role Phone Marychuy Ríos MD Primary [...] Medicaid [place] Care Teams Pilot Instructor Relationship Specialty Start Date End Date Marychuy Ríos MD [address] [place] [id number] PCP - General Internal Medicine 11/03/20
--- OUTSIDE RECORDS SUMMARY | 2024-07-02 13:12 | XMS_ITS | Encounter Summary ---
Author Organization [employer] [facility] Address [address] [facility] [address] [place] [address] Care Team Providers Care Residential Treatment Counselor Name Role Phone Unavailable Primary Care Provider [...]
[2024-07-02 13:16] VITALS: BP 150/80; PULSE 62; RESP 15; TEMP 36.2; O2SAT 98; BMI 24.2
== END 2024-07-02 14:11 | disposition home or self-care (01) ==
LOC: HO.HMCH 12:55
PROVIDERS: PCP Physician Assistant; Visit Provider Physician Assistant
DX: I12.9 Hypertensive chronic kidney disease with stage 1 through stage 4 chronic kidney disease, or unspecified chronic kidney disease (principal); I27.82 Chronic pulmonary embolism; N18.31 Chronic kidney disease, stage 3a; M17.11 Unilateral primary osteoarthritis, right knee; E61.1 Iron deficiency; I73.9 Peripheral vascular disease, unspecified; I25.811 Atherosclerosis of native coronary artery of transplanted heart without angina pectoris

== ENCOUNTER 2024-07-04 10:54 | Outpatient (AMB) | payer MEDICARE, MEDICAID, SELFPAY ==
--- NOTE | 2024-07-04 11:02 | HO.NEPHOV_ITS ---
Vital Signs 07/04/24 11:03 Height 5 ft 8 in Weight 160 lb BMI 24.3 BP 176/80 H Blood Pressure Location Rt brachial Position Sitting Pulse 67 Pulse Source Pulse Oximeter Pulse Oximetry (%) 98 Oxygen Delivery Method Room Air Intake Visit Reasons: 2 weeks -[facility] Heading Maker Required: No Accompanied by: Self / Same As Patient Allergies codeine Allergy (Intermediate, Verified 07/07/24 09:56) Nausea latex Allergy (Intermediate, Verified 07/07/24 09:56) Rash amoxicillin Allergy (Unknown, Verified 07/07/24 09:56) Unknown hydrochlorothiazide Allergy (Unknown, Verified 07/07/24 09:56) Unknown morphine Allergy (Unknown, Verified 07/07/24 09:56) Nausea SHAYY Inhibitors Adverse Reaction (Unknown, Verified 07/07/24 09:56) Unknown HPI Comments Details: Yecenia is a 74-year-old female with a PMH significant for?CAD s/p stenting 2018, hx of DVT with pulmonary embolism 2017 on Eliquis, HTN, HLD, CKD 3, chronic anemia requiring transfusions in the past, diet-controlled diabetes type 2, osteoarthritis, and chronic lower leg edema who recently presented to [facility] ER with?chest pain and dizziness. She had some chest pain but experienced associated SOBE, increasing tiredness and fatigue. At that time she denied any nausea, vomiting, cough. Stool has been regular and brown-colored. Denied melena or hematochezia. She reported a positive Cologuard test 3-4 years ago but did not follow-up with colonoscopy due to transportation issues. Pt also reported unintentional weight loss of around 25 lb.In the ED pt was hypertensive up to 165/64, vitals otherwise stable and WNL. Labs were significant for H&H 5.2/18.9, initial troponin 24.0, BNP 368, and albumin 3.0 no leukocytosis. No significant electrolyte abnormalities. Creatinine 2.27, around baseline. Hepatic function WNL. TSH WNL. Of note, in the ED pt refused rectal examination to test stool for occult blood. Tested negative for flu, COVID, RSV. UA negative for UTI. CXR showed cardiomegaly with clear lungs. EKG demonstrated normal sinus rhythm with sinus arrhythmia, but no acute ischemic changes from prior. Pt was transfused 1 unit PRBCs in the ED and was admitted to the hospital for treatment and further evaluation of acute symptomatic blood loss anemia concerning for GI bleed.She received a total of 3 units of PRBCs and received treatment with Protonix IV. She underwent an EGD (05/12) that showed a normal esophagus and stomach. Duodenum has a 2 cm polypoid lesion, biopsy is were obtained; and no obvious evidence of bleeding. Colonoscopy could not be completed due to fair preparation. A CT enterography could not be performed due to patient's renal function. She will be scheduled for video capsule endoscopies on May. She will also need a colonoscopy within 6 months. Patient is to stop taking Eliquis 4 days before this procedure. She also received treatment with IV iron IV and Procrit SC (one dose on the day of discharge). Patient also expressed her frustration about ongoing right knee and leg pain and swelling afternoon undergoing intra-articular steroids prior to admission. She was seen by orthopedic service and underwent knee aspiration but only a scant quantity of fluid was removed; they recommended pain management as an outpatient. Patient has been refusing to have total replacement of her right knee as she has to care for her mother. Aspirin was restarted and dose decreased to 81 mg p.o. daily. She recently had pulmonary edema as well as anemia and was admitted in [facility] where she got diuresed, transfused and underwent colonoscopy. She was seen in follow up today. [facility] Medical History CAD (coronary artery disease) Osteoarthritis Hx of transfusion of packed red blood cells Diet-controlled diabetes mellitus Pulmonary embolism DVT (deep venous thrombosis) Anemia in chronic kidney disease Hypertension CKD (chronic kidney disease) stage 3, GFR 30-59 ml/min Surgical History Hx of heart artery stent History of partial hysterectomy Social History Household Members: Family Housing: Apartment Do you presently have visiting nurse or other home services: No Alcohol intake: never Patient Tobacco Use Status: Former Tobacco user service: No Review of Systems Const All systems reviewed & are unremarkable except as noted in HPI and below Physical Exam Vital Signs: Last Vital Signs Pulse 67 07/04/24 11:03 BP 176/80 H 07/04/24 11:03 Pulse Ox 98 07/04/24 11:03 Oxygen Delivery Method Room Air 07/04/24 11:03 BMI result Body Mass Index 24.3 Const General: comfortable and no acute distress Orientation/consciousness: patient oriented x3 HEENT Head: Yes normocephalic Mouth: Normal oral and palatal mucosa present Eyes EOM: EOMs intact bilaterally Neck Neck: Yes supple Resp Auscultation: clear to auscultation bilaterally Cardio Jugular venous distension: no JVD Rate: regular rate GI Palpation (GI): Soft to palpation Auscultation: normal bowel sounds General: Yes no CVA tenderness Back/Spine/Pelvis Back: no CVA tenderness Skin General skin exam: no rashes or lesions noted Neuro General: patient oriented x3 and moves all extremities Office Meds epoetin walt-epbx 10,000 unit/mL injection solution Performing Provider: London Boyer MD Performing Location: [facility] Administered by: London Boyer MD on 07/04/24 16:45 Dose Route Admin Location Dispensed Lot Number Expiration Date [facility] Ladle Repairer 20,000 unit subcut LUE 2 mL [id number] 08/19/25 [id number] [employer] Results Reviewed Nephrology Results: Hgb 9.3 g/dl (12.0-16.0) L 07/02/24 WBC 7.8 X10*3/uL (4.8-10.8) 07/02/24 Plt Count 281 X10*3/uL (160-400) 07/02/24 Sodium 143 mmol/L (135-145) 07/02/24 Potassium 4.3 mmol/L (3.3-5.1) 07/02/24 Chloride 105 mmol/L (96-108) 07/02/24 Carbon Dioxide 27 mmol/L (22-29) 07/02/24 BUN 52 mg/dL (9-16) H 07/02/24 Creatinine 2.57 mg/dL (0.5-1.4) H 07/02/24 Calcium 9.2 mg/dL (8.4-10.2) 06/04/24 Phosphorus 3.4 mg/dL (2.7-4.5) 06/04/24 PTH Intact 214.8 pg/mL (8.7-77.1) H 06/04/24 Assessment & Plan Assessment & Plan (1) CKD (chronic kidney disease) stage 3, GFR 30-59 ml/min: Code(s): N18.30 - Chronic kidney disease, stage 3 unspecified Category: Medical Qualifiers: Chronic kidney disease stage 3 subtype: stage 3a (GFR 45-59) Qualified Code(s): N18.31 - Chronic kidney disease, stage 3a (2) Anemia in chronic kidney disease: Code(s): N18.9 - Chronic kidney disease, unspecified; D63.1 - Anemia in chronic kidney disease Category: Medical Qualifiers: Chronic kidney disease stage: stage 3 (moderate) Chronic kidney disease stage 3 subtype: stage 3b (GFR 30-44) Qualified Code(s): N18.32 - Chronic kidney disease, stage 3b; D63.1 - Anemia in chronic kidney disease (3) Secondary hyperparathyroidism (of renal origin): Code(s): N25.81 - Secondary hyperparathyroidism of renal origin Category: Medical (4) Hypertension: Code(s): I10 - Essential (primary) hypertension Category: Medical Qualifiers: Hypertension type: primary hypertension Qualified Code(s): I10 - Essential (primary) hypertension Plan Yecenia has chronic kidney disease and longstanding hypertension. 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 She is known to have coronary artery disease and has undergone angioplasty and stenting. She had lower endoscopy . She has seen GI and has a F/U . She should continue lasix 40 mg bid. I administered Procrit in the office today. She may also need Hematology consult +/- bone marrow biopsy. She needs to maintain low-sodium & K diet. Follow up blood work ordered. Answered all questions Orders: Orders Creatinine 1 Month N18.31 - Chronic kidney disease, stage 3a Blood Urea Nitrogen 1 Month N18.31 - Chronic kidney disease, stage 3a Electrolytes 1 Month N18.31 - Chronic kidney disease, stage 3a AMB Epoetin Injection Practice Supplied 07/04/24 D63.1 - Anemia in chronic kidney disease, N18.32 - Chronic kidney disease, stage 3b Complete Blood Count Auto Diff 1 Month N18.31 - Chronic kidney disease, stage 3a Coding Level of Care Code Est Pt Level 4 (71477) Diagnoses Stage 3a chronic kidney disease N18.31 Chronic kidney disease stage 3 subtype: stage 3a (GFR 45-59) Anemia in stage 3b chronic kidney disease N18.32; D63.1 Chronic kidney disease stage: stage 3 (moderate) Chronic kidney disease stage 3 subtype: stage 3b (GFR 30-44) Secondary hyperparathyroidism (of renal origin) N25.81 Primary hypertension I10 Hypertension type: primary hypertension
[2024-07-04 11:03] VITALS: BP 176/80; PULSE 67; O2SAT 98; BMI 24.3
--- OUTSIDE RECORDS SUMMARY | 2024-07-04 11:25 | XMS_ITS | Clinical Summary ---
Author Organization [employer] Address [address] [facility] [address] [place] [address] Care Team Providers Care Wireless Internet Installer Name Role Phone Unavailable Primary Care [...] patient's age to complete this topic Meningococcal B Vaccine Aged Out No l onger eligible based on patient's age to complete [...]
--- OUTSIDE RECORDS SUMMARY | 2024-07-04 11:25 | XMS_ITS | Clinical Summary ---
Author Organization [facility] Address [address] [place] [address] Phone Care Team Providers Care Door Frame Builder Name Role Phone Marychuy Ríos MD Primary Care Provider [phone] Allergies Active Allergy Reactions Criticality Noted Date [...] Medicaid [place] Care Teams Door Frame Builder Relationship Specialty Start Date End Date Marychuy Ríos MD [address] [place] [id number] PCP - General Internal Medicine 11/03/20
--- OUTSIDE RECORDS SUMMARY | 2024-07-04 11:25 | XMS_ITS | Encounter Summary ---
Author Organization [facility] Address [address] [place] [address] Phone Care Team Providers Care Auto Technician Mechanic Name Role Phone Marychuy Ríos MD Primary Care Provider [phone] Encounter Details Date Type Department Care Team (Late st Contact Info) Description 09/01/2020 Orders Only [facility] [address] [place] [address] London Boyer MD Stage 3b chronic [...] [facility] BUN 42(H) (8-23) MG/DL [facility] Creatinine 2.0(H) (0.5-1.0) MG/DL [facility] Sodium 141 (133-145) MMOL/L [facility] Potassium 5.1 (3.6-5.2) MMOL/L [facility] Chloride 106 (98-107) MMOL/L [facility] Bicarbonate (CO2) 23 (22-29) MMOL/L [facility] Anion Gap 12 (4-17) [facility] Albumin 4.2 (3.4-4.8) GM/DL [facility] Calcium 9.5 (8.6-10.5) MG/DL [facility] [...] and Americans. Testing performed or reported by [facility], a Service of [facility], [address] [place] [id number] John Muñiz MD, Java Xml Developer Blood (Blood, Venous) 08/03/2020 7:46 AM EDT [...] HOSPITAL Comment: Testing performed or reported by [facility], a Service of [facility], [address] [place] [address] John Muñiz MD, Java Xml Developer Blood (Blood, Venous) 08/03/2020 7:46 AM EDT 08/03/2020 7:49 AM EDT us London Boyer MD LAB BLOOD ORDERABLES Final Resul t [facility] documented in this encounter Visit Diagnoses Diagnosis Stage 3b chronic kidney disease (HCC) Essential hypertension documented in this encounter Care Teams Auto Technician Mechanic Relationship Specialty Start Date End Date Marychuy Ríos MD [address] [place] [address] PCP - General Internal Medicine 11/03/20 documented as of this encounter
--- OUTSIDE RECORDS SUMMARY | 2024-07-04 11:25 | XMS_ITS | Encounter Summary ---
Author Organization [facility] Address [address] [facility] [address] [place] [address] Care Team Providers Care Trim Setter Helper Name Role Phone Unavailable Primary Care Provider [...]
--- OUTSIDE RECORDS SUMMARY | 2024-07-04 11:25 | XMS_ITS | Encounter Summary ---
Author Organization [facility] Address [address] [facility] [address] [place] [address] Care Team Providers Care Post Office Markup Clerk Name Role Phone Unavailable Primary Care Provider [...]
== END 2024-07-04 11:41 | disposition home or self-care (01) ==
LOC: HO.HKA 10:55
PROVIDERS: PCP Physician Assistant; Visit Provider Internal Medicine Nephrology
DX: N18.31 Chronic kidney disease, stage 3a (principal); N18.32 Chronic kidney disease, stage 3b; D63.1 Anemia in chronic kidney disease; N25.81 Secondary hyperparathyroidism of renal origin; I10 Essential (primary) hypertension
CPT/HCPCS: 99214

== ENCOUNTER → 2024-07-04 10:54 | Outpatient (BNVA) | payer MEDICARE, MEDICAID, SELFPAY | PROVIDERS: PCP Physician Assistant; Visit Provider Internal Medicine Nephrology | DX: I12.9 Hypertensive chronic kidney disease with stage 1 through stage 4 chronic kidney disease, or unspecified chronic kidney disease (principal); N18.32 Chronic kidney disease, stage 3b; N25.81 Secondary hyperparathyroidism of renal origin; D63.1 Anemia in chronic kidney disease | CPT/HCPCS: 96372; 99212; Q5106 ==

== ENCOUNTER 2024-07-07 09:45 | Outpatient (AMB) | payer MEDICARE, MEDICAID, SELFPAY ==
--- NOTE | 2024-07-07 09:55 | A.OFFVIS_ITS ---
Vital Signs 07/07/24 09:56 Height 5 ft 8 in Weight 157 lb BMI 23.9 BP 162/80 H Blood Pressure Location Rt brachial Position Sitting Pulse 64 Pulse Source Pulse Oximeter Pulse Oximetry (%) 97 Oxygen Delivery Method Room Air Intake Visit Reasons: Unilateral primary osteoarthritis, right knee Make Up Operator Required: No Allergies codeine Allergy (Intermediate, Verified 07/07/24 09:56) Nausea latex Allergy (Intermediate, Verified 07/07/24 09:56) Rash amoxicillin Allergy (Unknown, Verified 07/07/24 09:56) Unknown hydrochlorothiazide Allergy (Unknown, Verified 07/07/24 09:56) Unknown morphine Allergy (Unknown, Verified 07/07/24 09:56) Nausea SHAYY Inhibitors Adverse Reaction (Unknown, Verified 07/07/24 09:56) Unknown Medication List - Last Reconciled 07/07/24 by Anais Frey, DIRECTOR SPECIALTY acetaminophen 1,500 mg PO DAILY PRN apixaban (Eliquis) 2.5 mg PO BID ascorbate calcium (vitamin C) 1 g PO BEDTIME cholecalciferol (vitamin D3) 10 mcg PO DAILY clonidine HCl 0.1 mg PO TID furosemide 40 mg (2 x 20 mg) PO BID gabapentin mg PO isosorbide mononitrate ER 30 mg PO TID leg brace (Knee Support Brace) As directed Right hinged knee brace Dx: osteoarthritis knee mecobalamin (vitamin B12) 1,000 mcg PO DAILY metoprolol tartrate 50 mg PO BID oxycodone 10 mg PO Q6H PRN prednisone 10 mg PO DAILY HPI Comments Details: The patient is a 74-year-old female presenting with right knee pain due to severe osteoarthritis. Her condition has been chronic and long standing, but exacerbated 8 months ago while providing care to her mother who was in wheelchair and has gradually worsened, leading to significant functional impairment and mobility challenges. Patient notes when she was pushing her mom in wheelchair 8 months ago, she felt sudden knee pain with popping and clicking. She has experiences on and off episodes of instability and near falling due to right knee giving out and severe pain. The pain is described as residing predominantly in the lateral aspect of right knee, referred to as bone on bone, and has remained pervasive over time. She has significant global swelling over her right knee, no swelling in the left knee. Despite attempts to manage the ongoing issue, such as steroid and gel one injections and physical therapy, relief has not been achieved, and gel one in February 2024 have exacerbated the problem. Yecenia describes associated symptoms of knee swelling, warmness, and overall limited mobility, with the condition persisting for over 8 months. Yecenia has an extensive medical history including a pulmonary embolism from 2017 and anemia, leading to recent hospitalization for blood transfusions. Her current medication regimen includes Eliquis for embolism risk management. While she has evaluated numerous treatment options for her knee pain, any lasting symptom relief has yet to be achieved. Patient does admit oxycodone has been helpful but she was provided a limited supply through her PCP. - Onset: Chronic, recently exacerbated 8 months ago - Quality: Described as bone on bone, pulsing, throbbing, stabbing, sharp, burning, aching, heavy, tiring; 10/ mornings, 3/10 resting in bed - Location: Predominantly right knee, lateral aspect - Exacerbating Factors: Walking, bending, using a knee brace, swelling - Alleviating Factors: Oxycodone (partial relief) - Impact on Activities: Severe, requires a walker for mobility - Affect: Pain severely restricts mobility, requiring the use of a walker - Analgesia: On Eliquis for embolism management, avoids oxycodone due to fears of habit formation but finds this provides good but temporary relief - Adverse Effects: Previous steroid and hyaluronic injections worsened symptoms - Activities of Daily Living: Significant limitation in walking and bending - Aberrant Drug Behaviors: Avoids dependency on prescribed oxycodone PFSH Medical History CAD (coronary artery disease) Osteoarthritis Hx of transfusion of packed red blood cells Diet-controlled diabetes mellitus Pulmonary embolism DVT (deep venous thrombosis) Anemia in chronic kidney disease Hypertension CKD (chronic kidney disease) stage 3, GFR 30-59 ml/min Surgical History Hx of heart artery stent History of partial hysterectomy Social History Household Members: Family Housing: Apartment Do you presently have visiting nurse or other home services: No Alcohol intake: never Patient Tobacco Use Status: Former Tobacco user service: No Review of Systems Const Details: - Musculoskeletal: Reports right knee pain, describes it as bone on bone - Cardiac: Denies current cardiac symptoms but has history of pulmonary embolism and DVT - Hematologic: Reports recent hospitalization for anemia - Neurological: Denies any other neurological symptoms or deficiencies All systems reviewed & are unremarkable except as noted in HPI and below Physical Exam Vital Signs: Last Vital Signs Pulse 64 07/07/24 09:56 BP 162/80 H 07/07/24 09:56 Pulse Ox 97 07/07/24 09:56 Oxygen Delivery Method Room Air 07/07/24 09:56 BMI result Body Mass Index 23.9 General: Appears afebrile. Alert and oriented. Mood and affect appropriate. Follows and participates in conversation appropriately. Respiratory effort is unlabored. No cough. Able to transition from sit to stand unassisted. Uses walker with ambulation. Extrem General: Yes capillary refill normal, Yes no calf tenderness, No clubbing, No cyanosis, Yes edema (right knee, bilateral feet) and Yes pedal edema Right lower extremity: knee (Limited ROM due to pain. Global swelling of right knee) Details: tenderness, swelling, crepitus and warmth Location: anteriorly; no ecchymosis Psych Appearance: grossly normal Speech and movement: Normal speech and movement present Affect: normal affect Attitude: cooperative Thought process: Normal thought process present Thought content: Normal thought content present, suicidality (none) and Depressive thoughts present Insight: Good insight present (Psych) Judgement: Good judgement present (Psych) Results Reviewed Results Reviewed: XR KNEE 1-2 VIEWS RIGHT 05/07/24 HISTORY: M17.0 - Bilateral primary osteoarthritis of knee COMPARISON: There are no prior studies available for comparison. FINDINGS: Three views of the right knee are submitted. The bones are osteopenic. There is no fracture or dislocation. There is severe osteoarthritis of the lateral compartment with joint space narrowing and osteophyte formation. There is a small joint effusion. There is calcification of the popliteal artery. IMPRESSION: Osteopenia. Small joint effusion. Severe osteoarthritis of the lateral compartment. Assessment & Plan Assessment & Plan (1) Knee pain, right: Code(s): M25.561 - Pain in right knee Category: Medical Qualifiers: Chronicity: chronic Qualified Code(s): M25.561 - Pain in right knee; G89.29 - Other chronic pain (2) Osteoarthritis of right knee: Comment: Uncontrolled knee pain. She has failed 1 cortisone injection and hyaluronic acid injection, gel 1. We discussed medical management of knee osteoarthritis. She has temporary benefit with Tylenol. Pain is uncontrolled and she would not be able to participate in physical therapy. We discussed the importance of bracing and trying to control edema in legs to enable improved ambulation. We discussed in setting of CKD she has limited with medications to use. Contraindication to oral NSAIDs and duloxetine. We discussed considering aranza pentin. Discussed side effects, benefits and drug monitoring. We also discussed considering geniculate nerve block with pain management referral. She would like to proceed with trying gabapentin. Code(s): M17.11 - Unilateral primary osteoarthritis, right knee Category: Medical Qualifiers: Osteoarthritis type: primary Qualified Code(s): M17.11 - Unilateral primary osteoarthritis, right knee Plan The treatment plan involves pursuing interventional pain management techniques due to refractory symptoms following conservative care. We will conduct an MRI to rule out further pathology of severe, intractable right knee pain with swelling, mild warmth, popping and clicking sensations and frequent episodes of instability. Based on the results and eligibility, options like saphenous vs femoral nerve peripheral nerve stimulation or genicular radiofrequency ablation are considered, subject to insurance approval. Informational pamphlets were provided to patient. All questions and concerns have been answered and patient agreed with the plan. Follow up for MRI results and sooner as needed. Patient was informed and verbally consented to the use of an ambient scribe for clinic note documentation during this visit. Orders: Orders MR nelson RT wo con Today G89.29 - Other chronic pain, M17.11 - Unilateral primary osteoarthritis, right knee, M25.561 - Pain in right knee Patient Instructions: I discussed the primary diagnosis of severe osteoarthritis of the right knee with the patient, including potential interventional treatment options such as peripheral nerve stimulation and radiofrequency ablation. The benefits of reducing pain and improving mobility through these non-surgical interventions were explained, alongside procedural specifics and duration of relief expected. Risks including procedural discomfort and concerns regarding insurance coverage were communicated in detail. For peripheral nerve stimulation, daily life adjustments like avoiding baths and assessing clothing with the device were advised. An MRI was ordered to rule out any other knee pathologies before proceeding. The need for follow-ups, possible referrals, and continuation steps based on MRI results and patient decision on the interventions were also discussed. - Await approval and scheduling of MRI. - Review provided pamphlets on peripheral nerve stimulation and radiofrequency ablation. - Monitor any changes in knee swelling or pain and report promptly. - Adhere to current medication regimen, avoiding unnecessary use of oxycodone. - Prepare for potential visit with Dr. Stewart post-MRI results if abnormalities noted. - Adjust daily activities using a walker safely and avoid aggravating knee pain. Coding Level of Care Code New Pt Level 4 (06109) Diagnoses Chronic pain of right knee M25.561; G89.29 Chronicity: chronic Primary osteoarthritis of right knee M17.11 Osteoarthritis type: primary
[2024-07-07 09:56] VITALS: BP 162/80; PULSE 64; O2SAT 97; BMI 23.9
--- OUTSIDE RECORDS SUMMARY | 2024-07-07 10:06 | XMS_ITS | Encounter Summary ---
Author Organization [facility] Address [address] [facility] [address] [place] [address] Care Team Providers Care Irrigation Tax Assessor Collector Name Role Phone Unavailable Primary Care Provider [...]
--- OUTSIDE RECORDS SUMMARY | 2024-07-07 10:06 | XMS_ITS | Encounter Summary ---
Author Organization [facility] Address [address] [place] [address] Phone Care Team Providers Care Director Of Strategic Communications Name Role Phone Marychuy Ríos MD Primary Care Provider [phone] Encounter Details Date Type Department Care Team (Late st Contact Info) Description 09/01/2020 Orders Only [facility] [address] [place] [address] London Boyer MD Stage 3b chronic [...] 7:46 AM EDT) Glucose 113(H) (70-99) MG/DL [facility] BUN 42(H) (8-23) MG/DL [facility] Creatinine 2.0(H) (0.5-1.0) MG/DL [facility] Sodium 141 (133-145) MMOL/L [facility] Potassium 5.1 (3.6-5.2) MMOL/L [facility] Chloride 106 (98-107) MMOL/L [facility] Bicarbonate (CO2) 23 (22-29) MMOL/L [facility] Anion Gap 12 (4-17) [facility] Albumin 4.2 (3.4-4.8) GM/DL [facility] Calcium 9.5 (8.6-10.5) MG/DL [facility] Phosphorus, Serum 3.8 (2.5-4.5) MG/DL [facility] Est GFR Non 25 ML/MIN/1.7 3 M2 [facility] Comment: Creatinine based estimated glomerular filtration rate (eGFR) is calculated using the Chronic Kidney Disease Epidemiology Collaboration (CKD-EPI). The CKD-EPI creatinine equation has not been validated in children (<18 years), women or in some racial or ethnic subgroups other than Caucasians and Americans. EST GFR 29 ML/MIN/1.7 3 M2 [facility] Comment: Creatinine based estimated glomerular filtration rate (eGFR) is calculated using the Chronic Kidney Disease Epidemiology Collaboration (CKD-EPI). The CKD-EPI creatinine equation has not been validated in children (<18 years), women or in some racial or ethnic subgroups other than Caucasians and Americans. Testing performed or reported by [facility], a Service of [facility], [address] [place] [id number] John Muñiz MD, Wax Pattern Assembler Blood (Blood, Venous) 08/03/2020 7:46 AM EDT 08/03/2020 7:49 AM EDT us London Boyer MD LAB BLOOD ORDERABLES Final Resul t [facility] * (ABNORMAL) CBC (08/03/2020 7:46 AM EDT) Pathologist [facility] White Blood Cells 6.3 (4.0-11.0) K/MM3 [facility] RBC 3.73(L) (4.20-5.40 ) M/MM3 [facility] Hgb 9.7(L) (11.7-15.5 ) GM/DL [facility] Hematocrit 34.5(L) (35.7-45.8 ) % [facility] MCV 92.5 (80.0-100. 0) FL [facility] MCH 26.0(L) (27.0-34.0 ) PG [facility] MCHC 28.1(L) (33.0-37.0 ) g/dL [facility] Platelets 262 (150-460) K/MM3 [facility] RDW-SD 59.2(H) (<47.0) FL [facility] MPV 12.1 (9.4-12.4) FL [facility] nRBC Count 0.3 #/100 WBC'S [facility] NRBC Absolute 0.0 K/MM3 [facility] Comment: Testing performed or reported by [facility], a Service of [facility], [address] [place] [address] John Muñiz MD, Wax Pattern Assembler Blood (Blood, Venous) 08/03/2020 7:46 AM EDT 08/03/2020 7:49 AM EDT us London Boyer MD LAB BLOOD ORDERABLES Final Resul t [facility] documented in this encounter Visit Diagnoses Diagnosis Stage 3b chronic kidney disease (HCC) Essential hypertension documented in this encounter Care Teams Director Of Strategic Communications Relationship Specialty Start Date End Date Marychuy Ríos MD [address] [place] [address] PCP - General Internal Medicine 11/03/20 documented as of this encounter
--- OUTSIDE RECORDS SUMMARY | 2024-07-07 10:06 | XMS_ITS | Encounter Summary ---
Author Organization [employer] [facility] Address [address] [place] [address] Care Team Providers Care Folding Machine Feeder Name Role Phone Unavailable Primary Care Provider [...]
--- OUTSIDE RECORDS SUMMARY | 2024-07-07 10:06 | XMS_ITS | Clinical Summary ---
Author Organization [employer] Address [address] [place] [address] Care Team Providers Care Toby Maker Name Role Phone Unavailable Primary Care Provider [...]
--- OUTSIDE RECORDS SUMMARY | 2024-07-07 10:06 | XMS_ITS | Clinical Summary ---
Author Organization [facility] Address [address] [place] [address] Phone Care Team Providers Care Business Excellence Leader Name Role Phone Marychuy Ríos MD Primary Care Provider [phone] Allergies Active Allergy Reactions Criticality Noted Date [...] Medicaid [place] Care Teams Business Excellence Leader Relationship Specialty Start Date End Date Marychuy Ríos MD [address] [place] [id number] PCP - General Internal Medicine 11/03/20
== END 2024-07-07 10:26 | disposition home or self-care (01) ==
LOC: HO.PMC 09:45
PROVIDERS: PCP Physician Assistant; Referring Provider Physician Assistant; Visit Provider Nurse Practitioner Family
DX: M25.561 Pain in right knee (principal); G89.29 Other chronic pain; M17.11 Unilateral primary osteoarthritis, right knee
CPT/HCPCS: 99204

== ENCOUNTER → 2024-07-07 09:45 | Outpatient (BNVA) | payer MEDICARE, MEDICAID, SELFPAY | PROVIDERS: PCP Physician Assistant; Referring Provider Physician Assistant; Visit Provider Nurse Practitioner Family | DX: M17.11 Unilateral primary osteoarthritis, right knee (principal); M25.561 Pain in right knee; G89.29 Other chronic pain | CPT/HCPCS: 99202 ==

== ENCOUNTER 2024-07-15 10:26 | Outpatient (AMB) | payer MEDICARE, MEDICAID, SELFPAY ==
--- NOTE | 2024-07-15 10:26 | A.OFFVIS_ITS ---
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 Patient states she is in so much pain. Patient states this has been going on 8 months. Has had knee injections and did not do well with those. Has been to ortho and was told to go to pain management. Went to [facility] in [place] and was told there was nothing they can do . Patient wears compression socks but her feet turned black . 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 Her primary concern involves darkening and swelling of her feet, primarily around the ankles, which diminish during periods of rest but reappear with walking. Despite taking diuretics as part of her treatment with Dr. Boyer for renal issues over the past 17 years, swelling persists, suggesting possible venous insufficiency. She manages severe arthritis, which exacerbates her discomfort, and has previously undergone cortisone and gel injections in her knees without relief. Her history of minimal smoking ended six years ago. 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 Examination revealed strong pedal pulses, making arterial insufficiency less likely, thus shifting concern towards venous insufficiency as a contributing factor to her symptoms. Patient denies any previous venous surgery or injections. Patient denies any history of DVT/ PE. Patient denies any history of phlebitis. Trial of compression includes - [id number] They now present for vascular evaluation regarding their varicose veins and lower extremity swelling. [facility] Medical History CAD (coronary artery disease) Osteoarthritis Hx of transfusion of packed red blood cells Diet-controlled diabetes mellitus Pulmonary embolism DVT (deep venous thrombosis) Anemia in chronic kidney disease Hypertension CKD (chronic kidney disease) stage 3, GFR 30-59 ml/min Surgical History Hx of heart artery stent History of partial hysterectomy Social History Household Members: Family Housing: Apartment Do you presently have visiting nurse or other home services: No Alcohol intake: never Patient Tobacco Use Status: Former Tobacco user service: No Review of Systems Const Reports as per HPI ENT Reports no additional complaints Card Denies chest pain, Denies chest pain at rest and Denies chest pain with activity Resp Denies chest congestion and Denies cough GI Reports no additional complaints Musc Details: pain over varicosities, aching of lower extremities, swelling, cramping, heaviness and tiredness, itching Denies abnormal gait Skin/Breast Reports pruritus and Denies wounds Neuro Reports no additional complaints and Denies abnormal gait Psych Denies no additional complaints Physical Exam Const General: cooperative, healthy appearing and comfortable Orientation/consciousness: oriented to person, oriented to place and oriented to time Neck Carotids: no bruits Chest Chest palpation & inspection: normal inspection of the chest and normal palpation of entire chest wall Resp Effort & Inspection: normal respiratory effort and able to speak in complete sentences Cardio Rate: regular rate Heart sounds: S1 normal heart sound present and S2 normal heart sound present Peripheral pulses: Peripheral pulses 2+ throughout GI Inspection: Yes normal to inspection Skin Other: +2 edema, CEAP Classification C4 - skin color changes Ep - Etiology Primary As - superficial veins P - reflux General skin exam: dry skin Neuro General: oriented to person, oriented to place and oriented to time Extrem Right lower extremity: full ROM, normal capillary refill and edema Left lower extremity: full ROM, normal capillary refill and edema Psych Mental Status: mental status grossly normal Assessment & Plan Assessment & Plan (1) Varicose veins of right lower extremity with inflammation: Code(s): I83.11 - Varicose veins of right lower extremity with inflammation Category: Medical Plan: In short, the patient has evidence of venous insufficiency. I have discussed the pathophysiology with the patient. In addition I have provided informational material regarding venous disease to the patient. We have discussed conservative measures including compression, elevation, and exercise. I have also provided a handout regarding appropriate use of compression stockings and where to purchase good compression stockings as well. I have taken the liberty of ordering venous insufficiency testing with the patient. They will follow up with me after testing. The patient had an opportunity to ask questions regarding the treatment plan. All questions were answered. Imaging studies, laboratory studies and physical exam results were discussed and reviewed in detail. No major barriers to understanding were identified. The patient expressed understanding and agreement with the above treatment plan. The patient is aware they should contact our office by phone for worsening of the current condition or the appearance of new symptoms. Thank you for allowing me to participate in the vascular care of this patient. If you have any questions or concerns regarding the treatment for the above condition please do not hesitate to contact me. The office telephone contact is [phone]. This note is constructed using voice recognition software. While every effort has been made to ensure accuracy, spinning machine operator errors may have been included. Thank you for allowing me to participate in the care of your patient. Yours sincerely, Aren Wu MD, FACS, R.P.V.I. Orders: Orders US venous duplex LE BI 1 Week I83.11 - Varicose veins of right lower extremity with inflammation Coding Level of Care Code New Pt Level 4 (84805) Complex EM visit Add On G2211 Diagnoses Varicose veins of right lower extremity with inflammation I83.11
--- OUTSIDE RECORDS SUMMARY | 2024-07-15 11:13 | XMS_ITS | Clinical Summary ---
Author Organization [employer] Address [address] [place] [address] Care Team Providers Care Screen Printing Machine Operator Helper Name Role Phone Unavailable Primary Care [...]
== END 2024-07-15 10:48 | disposition home or self-care (01) ==
LOC: HO.HVS 10:27
PROVIDERS: PCP Physician Assistant; Visit Provider Surgery Vascular Surgery
DX: I83.11 Varicose veins of right lower extremity with inflammation (principal)
CPT/HCPCS: 99204; G2211

== ENCOUNTER → 2024-07-15 13:47 | Outpatient (BNV) | payer MEDICARE, MEDICAID, SELFPAY | PROVIDERS: PCP Physician Assistant; Visit Provider Radiology Diagnostic Radiology | DX: M17.31 Unilateral post-traumatic osteoarthritis, right knee (principal) | CPT/HCPCS: 73721 ==

== ENCOUNTER 2024-07-15 14:02 | Outpatient (REF) | payer MEDICARE, MEDICAID, SELFPAY ==
--- NOTE | ~2024-07-15 | MR_ITS ---
EXAMINATION: MR KNEE WITHOUT CONTRAST, RIGHT CLINICAL INFORMATION: Right knee pain, history of arthritis. COMPARISON: Right knee plain films 05/07/2024. TECHNIQUE: MRI of the right knee without contrast was performed using routine sequences on a 1.5 Kelly Siemens high-field scanner. FINDINGS: MENISCI: Medial Meniscus: Irregular and mildly complex radial tearing of the anterior horn, body, and posterior horn. Lateral Meniscus: Severe high-grade degenerative type tearing of the entire meniscus. The majority of the meniscus has been extruded into the para meniscal recess. LIGAMENTS: Anterior Cruciate: Fibers appear intact. High signal associated is likely intrasubstance degeneration. Posterior Cruciate: Tremors appear intact. There is intrasubstance degeneration. Medial Collateral: Intact and normal in signal. Lateral Collateral Complex: The biceps femoris tendon, and conjoined tendon are normal in signal. The fibular collateral ligament is intact although there is high signal abutting the attachment on the lateral femoral condyle, likely degenerative. Diffusely high signal in the popliteus tendon is also felt to represent intrasubstance degeneration. No discrete tearing is evident. EXTENSOR MECHANISM: Extensor mechanism is intact and grossly normal in signal. Hoffa's fat pad, the suprapatellar fat pad, and prefemoral fat pad appear grossly normal in signal. PATELLAR RETINACULUM: Intact and normal in signal. No discrete tear. BONE: Extensive degenerative subchondral bone plate edema and cystic changes throughout the lateral femoral condyle and lateral tibial plateau. There is no fracture or contusion identified. JOINTS/CARTILAGE: Medial Compartment: Moderate cartilage thinning and eburnation of the weightbearing condyle and tibial plateau without full-thickness defect. No gross subchondral bone plate edema. Lateral Compartment: There is complete cartilage loss of the lateral femoral condyle and lateral tibial plateau, with [id number] appearance, extensive subchondral cystic changes and sclerosis, and subchondral bone plate edema throughout the lateral plateau and lateral femoral condyle. There are large marginal lead projecting osteophytes. There are femoral tunnel osteophytes and there is spurring of the tibial spines. Patellofemoral Compartment: There is normal alignment of the patella within the trochlea. Moderate cartilage thinning and eburnation of the trochlear cartilage without full-thickness defect or subchondral bone plate edema. There is near complete cartilage loss involving the medial and lateral patellar facets, with small foci of subchondral bone plate edema. JOINT FLUID AND BURSAE: There is a small joint effusion present. There is synovial hypertrophy within the suprapatellar bursa. There is a cystic structure just deep to the popliteus muscle consistent with a ganglion cyst (series 8, image 24). There is diffuse high signal on degenerative appearing edema within the popliteus muscle, and there is trace fluid in the medial popliteal fossa. There is mild degenerative appearing edema within the superior gastrocs muscles. OTHER: There is mild subcutaneous edema throughout the imaged soft tissues. MR/MR knee RT wo con IMPRESSION: 1. End-stage degenerative arthritis in the lateral compartment with [id number] appearance, extensive subchondral cystic changes, sclerosis, and subchondral bone plate edema. There is extensive degenerative type tearing of the lateral meniscus. 2. Moderate degenerative arthritis in the medial compartment. There is irregular type radial tearing of the anterior horn, body, and posterior horn of the medial meniscus. 3. There is a small joint effusion. 4. Cruciate ligaments are intact although there is high signal associated, likely intrasubstance degeneration. 5. High signal throughout the popliteus muscle and tendon, likely degenerative. 6. There is nonspecific synovial hypertrophy within the suprapatellar bursa. 7. There is a small amount of fluid in the medial popliteal fossa. 8. There are additional ancillary findings as discussed in the body of the report. Electronically signed by: Fan Israel MD 07/15/2024 03:14 PM EDT
== END 2024-07-15 14:03 | disposition home or self-care (01) ==
LOC: HO.MRI 14:02
PROVIDERS: PCP Physician Assistant; Visit Provider Nurse Practitioner Family
DX: M17.11 Unilateral primary osteoarthritis, right knee (principal)
CPT/HCPCS: 73721; 99202

== ENCOUNTER → 2024-07-23 14:17 | Outpatient (BNV) | payer MEDICARE, MEDICAID, SELFPAY | PROVIDERS: PCP Physician Assistant; Visit Provider Internal Medicine | DX: I26.99 Other pulmonary embolism without acute cor pulmonale (principal) | CPT/HCPCS: 99205 ==

== ENCOUNTER 2024-07-24 10:06 | Outpatient (AMB) | payer MEDICARE, MEDICAID, SELFPAY ==
--- NOTE | 2024-07-24 10:15 | A.OFFVIS_ITS ---
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 Patient reports that she has had ongoing right knee pain for about a year now. She has previous cortisone and gel injections done which were not helpful - these were done at [facility]. Her pain is felt all the time and is worse with activity. Knee braces increase her pain. She was taking Tylenol and NSAIDS but she had a GI bleed so she no longer taking NSAID. 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 She is taking prednisone which is the only thing that helps her, she is also taking Oxycodone. 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 Patient reports that she has had ongoing right knee pain for about a year now. She has previous cortisone and gel injections done which were not helpful - these were done at [facility] Her pain is felt all the time and is worse with activity. Knee braces increase her pain. She was taking Tylenol and NSAIDS but she had a GI bleed so she no longer taking NSAID. 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 She is taking prednisone which is the only thing that helps her, she is also taking Oxycodone. [facility] Medical History CAD (coronary artery disease) Osteoarthritis Hx of transfusion of packed red blood cells Diet-controlled diabetes mellitus Pulmonary embolism DVT (deep venous thrombosis) Anemia in chronic kidney disease Hypertension CKD (chronic kidney disease) stage 3, GFR 30-59 ml/min Surgical History Hx of heart artery stent History of partial hysterectomy Family History Maternal Grandfather Stomach cancer Social History Household Members: Family and None Housing: Apartment Do you presently have visiting nurse or other home services: No Alcohol intake: never Patient Tobacco Use Status: Former Tobacco user Tobacco use type: Cigarette Current occupational status: retired Physical Exam Extrem Other: Severe valgus knee with pain on limited motion of 10-90 degrees. She has a severely antalgic gait. Results Reviewed Results Reviewed: I personally reviewed relevant radiographs. Severe osteoarthritis with a valgus pattern and bone loss laterally. Assessment & Plan Assessment & Plan (1) Osteoarthritis of right knee: Comment: Uncontrolled knee pain. She has failed 1 cortisone injection and hyaluronic acid injection, gel 1. We discussed medical management of knee osteoarthritis. She has temporary benefit with Tylenol. Pain is uncontrolled and she would not be able to participate in physical therapy. We discussed the importance of bracing and trying to control edema in legs to enable improved ambulation. We discussed in setting of CKD she has limited with medications to use. Contraindication to oral NSAIDs and duloxetine. We discussed considering gabapentin. Discussed side effects, benefits and drug monitoring. We also discussed considering geniculate nerve block with pain management referral. She would like to proceed with trying gabapentin. Code(s): M17.11 - Unilateral primary osteoarthritis, right knee Category: Medical Qualifiers: Osteoarthritis type: primary Qualified Code(s): M17.11 - Unilateral primary osteoarthritis, right knee Plan: Yecenia is a 74-year-old woman with severe osteoarthritis of the right knee. 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 I would recommend she continue seeing pain management and they consider either periarticular injections or nerve stimulation. She may see me back when she is ready to consider surgery. Injections have not been helpful for her. Coding Level of Care Code Est Pt Level 4 (74200) Diagnoses Primary osteoarthritis of right knee M17.11 Osteoarthritis type: primary
--- OUTSIDE RECORDS SUMMARY | 2024-07-24 11:42 | XMS_ITS | Clinical Summary ---
Author Organization [employer] Address [address] [place] [address] Care Team Providers Care Warp Coiler Name Role Phone Unavailable Primary Care Provider [...] 02/24/2021, 06/02/2020, Additional history exists Influenza Vaccine (Season Ended) 2024 RSV Patients and Patients Aged 60 years [...]
== END 2024-07-24 10:48 | disposition home or self-care (01) ==
LOC: HO.HOS 10:06
PROVIDERS: PCP Physician Assistant; Visit Provider Orthopaedic Surgery
DX: M17.11 Unilateral primary osteoarthritis, right knee (principal)
CPT/HCPCS: 99214

== ENCOUNTER → 2024-07-24 10:06 | Outpatient (BNVA) | payer MEDICARE, MEDICAID, SELFPAY | PROVIDERS: PCP Physician Assistant; Visit Provider Orthopaedic Surgery | DX: M17.11 Unilateral primary osteoarthritis, right knee (principal) | CPT/HCPCS: 99212 ==

== ENCOUNTER 2024-07-31 10:00 | Outpatient (REF) | payer MEDICARE, MEDICAID, SELFPAY ==
[2024-07-31 10:24] LABS: MANUAL DIFF FLAG NO
[2024-07-31 10:58] LABS: Basophils Percent Auto 0.5 % (0-2); Eosinophils Percent Auto 0.6 % (0-4); Hematocrit 23.5 % (37.0-47.0); Imm Gran Abs Auto 0.03 X10*3/uL (0.00-0.03); Imm Gran Pct Auto 0.5 % (0.0-0.4); Lymphocytes Absolute Auto 1.1 X10*3/uL (1.2-4.9); Lymphocytes Percent Auto 16.5 % (20-40); Mean Corpuscular HGB Conc 29.4 g/dl (31.0-35.0); Mean Corpuscular Hemoglobin 26.5 pg (27.0-33.0); Mean Corpuscular Volume 90.4 fL (80.0-98.0); Monocytes Absolute Auto 0.6 X10*3/uL (0.1-1.2); Monocytes Percent Auto 9.1 % (2-11); NRBC Pct Auto 0.3 /100WBC (0.0-0.2); Neutrophils Absolute Auto 4.7 x10*3/uL (2.0-8.3); Neutrophils Percent Auto 72.8 % (45-73); Platelet Count 312 X10*3/uL (160-400); Red Cell Distribution Width 19.4 % (11.0-16.0); White Blood Count 6.5 X10*3/uL (4.8-10.8)
--- OUTSIDE RECORDS SUMMARY | 2024-07-31 11:21 | XMS_ITS | Clinical Summary ---
Author Organization [employer] Address [address] [facility] [address] [place] [address] Care Team Providers Care Recreation Engineer Name Role Phone Unavailable Primary Care Provider [...]
[2024-07-31 11:32] LABS: Hemoglobin 6.9 g/dl (12.0-16.0)
[2024-07-31 11:48] LABS: Alanine Aminotransferase < 6 U/L (0-31); Albumin Level 3.3 g/dL (3.5-5.0); Alkaline Phosphatase 114 U/L (39-117); Anion Gap 13 (12-20); Aspartate Amino Transferase 17 U/L (5-31); Bilirubin Total 0.3 mg/dL (0.0-1.0); Blood Urea Nitrogen 73 mg/dL (9-16); Carbon Dioxide 26 mmol/L (22-29); Chloride 108 mmol/L (96-108); Cholesterol 197 mg/dL (<200); Estimated Glomerular Filt Rate 17; Glucose Fasting 127 mg/dL (60-99); HDL Cholesterol 77 mg/dL (>40); Iron 16 mcg/dL (30-160); LDL Cholesterol Calculated 92 mg/dL (<100); Percent Iron Saturation 9 % (15-50); Potassium 4.2 mmol/L (3.3-5.1); Sodium 143 mmol/L (135-145); Total Iron Binding Capacity 177 mcg/dL (228-428); Total Protein 7.1 g/dL (6.5-8.0); Triglycerides 144 mg/dL (<150); Unsaturated Iron Binding 161 ug/dL
== END 2024-07-31 10:01 | disposition home or self-care (01) ==
LOC: HO.LAB 10:00
PROVIDERS: Absent Provider Internal Medicine Nephrology; PCP Physician Assistant; Visit Provider Physician Assistant
DX: N18.31 Chronic kidney disease, stage 3a (principal); I10 Essential (primary) hypertension; I25.811 Atherosclerosis of native coronary artery of transplanted heart without angina pectoris; E61.1 Iron deficiency
CPT/HCPCS: 36415; 80053; 80061; 83540; 85025; 85027

== ENCOUNTER 2024-08-05 15:43 | Outpatient (AMB) | payer MEDICARE, MEDICAID, SELFPAY ==
[2024-08-05 15:49] VITALS: BP 224/95; PULSE 107; O2SAT 96; BMI 24.8
--- NOTE | 2024-08-05 15:49 | A.OFFVIS_ITS ---
Vital Signs 08/05/24 15:49 08/05/24 16:12 08/05/24 16:19 Height 5 ft 8 in Weight 163 lb BMI 24.8 BP 224/95 H 214/93 H 150/70 H Blood Pressure Location Lt brachial Lt brachial Lt brachial Position Sitting Sitting Sitting Pulse 107 H 93 Pulse Source Pulse Oximeter Pulse Oximeter Pulse Oximetry (%) 96 Oxygen Delivery Method Room Air Comment bp recheck bp done manually Intake Visit Reasons: FU after seeing Dr Stewart Allergies codeine Allergy (Intermediate, Verified 08/05/24 15:50) Nausea latex Allergy (Intermediate, Verified 08/05/24 15:50) Rash hydrochlorothiazide Allergy (Unknown, Verified 08/05/24 15:50) Unknown morphine Allergy (Unknown, Verified 08/05/24 15:50) Nausea SHAYY Inhibitors Adverse Reaction (Unknown, Verified 08/05/24 15:50) Unknown HPI Comments Details: The patient is a 74-year-old female presenting with severe right knee pain secondary to osteoarthritis. The patient reports this pain as being severe, characterized by end-stage degenerative changes of the right knee, specifically noted as [id number]-gt-[id number] degeneration. The pain has persisted for almost a year, significantly impacting her quality of life. Prior interventions, including steroid and hyaluronic injections, resulted in increased pain without relief. The condition was further evaluated by MRI, which confirmed the severity, though surgery is not financially and situationally feasible currently. 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 Additional medical issues include recent anemia requiring blood transfusion, and stress-related hypertension. Patient is currently managing her knee pain with oxycodone through PCP prescribing and using it sparingly due to a limited prescription. - Onset and Timing: Nearly a year ago with a gradual increase in severity. - Quality and Character: Severe, described as zzqg-yc-[id number] discomfort and constant aching and throbbing in the right knee. Currently rated at 7/10. - Location: Right knee. - Exacerbating Factors: Movement or walking, financial stress, and past negative experiencing of pain management injections. - Relieving Factors: Oxycodone prescription used sparingly. Knee bracing, resting. - Impact on Activities: Difficulty in caring for mother and managing daily activities due to significant pain interference. - Affect: Emotional frustration and distress due to persistent unmanaged pain. - Analgesia: Small amount of oxycodone prescribed; inconsistent pain relief has been reported. - Adverse Effects: Past injections increased pain. - Activities of Daily Living: Significantly impacted; unable to perform daily tasks and care for her mother efficiently. - Aberrant Drug Related Behaviors: Saving oxycodone due to limited prescription, reporting concerns over being judged or managed inadequately. PRIOR: The patient is a 74-year-old female presenting with right knee pain due to severe osteoarthritis. Her condition has been chronic and long standing, but exacerbated 8 months ago while providing care to her mother who was in wheelchair and has gradually worsened, leading to significant functional impairment and mobility challenges. Patient notes when she was pushing her mom in wheelchair 8 months ago, she felt sudden knee pain with popping and clicking. She has experiences on and off episodes of instability and near falling due to right knee giving out and severe pain. The pain is described as residing predominantly in the lateral aspect of right knee, referred to as bone on bone, and has remained pervasive over time. She has significant global swelling over her right knee, no swelling in the left knee. Despite attempts to manage the ongoing issue, such as steroid and gel one injections and physical therapy, relief has not been achieved, and gel one in February 2024 have exacerbated the problem. Yecenia describes associated symptoms of knee swelling, warmness, and overall limited mobility, with the condition persisting for over 8 months. Yecenia has an extensive medical history including a pulmonary embolism from 2017 and anemia, leading to recent hospitalization for blood transfusions. Her current medication regimen includes Eliquis for embolism risk management. While she has evaluated numerous treatment options for her knee pain, any lasting sy mptom relief has yet to be achieved. Patient does admit oxycodone has been helpful but she was provided a limited supply through her PCP. - Onset: Chronic, recently exacerbated 8 months ago - Quality: Described as bone on bone, pulsing, throbbing, stabbing, sharp, burning, aching, heavy, tiring; 10/10 mornings, 3/10 resting in bed - Location: Predominantly right knee, lateral aspect - Exacerbating Factors: Walking, bending, using a knee brace, swelling - Alleviating Factors: Oxycodone (partial relief) - Impact on Activities: Severe, requires a walker for mobility - Affect: Pain severely restricts mobility, requiring the use of a walker - Analgesia: On Eliquis for embolism management, avoids oxycodone due to fears of habit formation but finds this provides good but temporary relief - Adverse Effects: Previous steroid and hyaluronic injections worsened symptoms - Activities of Daily Living: Significant limitation in walking and bending - Aberrant Drug Behaviors: Avoids dependency on prescribed oxycodone PFSH Medical History CAD (coronary artery disease) Osteoarthritis Hx of transfusion of packed red blood cells Diet-controlled diabetes mellitus Pulmonary embolism DVT (deep venous thrombosis) Anemia in chronic kidney disease Hypertension CKD (chronic kidney disease) stage 3, GFR 30-59 ml/min Surgical History Hx of heart artery stent History of partial hysterectomy Family History Maternal Grandfather Stomach cancer Social History Household Members: Family and None Housing: Apartment Do you presently have visiting nurse or other home services: No Alcohol intake: never Patient Tobacco Use Status: Former Tobacco user Tobacco use type: Cigarette Current occupational status: retired Review of Systems Const Details: - Musculoskeletal: Reports severe right knee pain. - Cardiovascular: Reports hypertension; denies chest pain. Received blood transfusion today. - Respiratory: Denies shortness of breath or cough. - Psychiatric: Reports stress. - Constitutional: Denies, but under stress and financial constraints. All systems reviewed & are unremarkable except as noted in HPI and below Physical Exam Vital Signs: Last Vital Signs Pulse 107 H 08/05/24 15:49 BP 224/95 H 08/05/24 15:49 Pulse Ox 96 08/05/24 15:49 Oxygen Delivery Method Room Air 08/05/24 15:49 BMI result Body Mass Index 24.8 General: Appears afebrile. Alert and oriented. Mood and affect appropriate. Follows and participates in conversation appropriately. Respiratory effort is unlabored. No cough. Able to transition from sit to stand unassisted. Antalgic gait due to significant right knee pain. Uses walker with ambulation. Extrem General: Yes capillary refill normal, Yes no calf tenderness, No clubbing, No cy anosis and Yes edema (right knee, bilateral feet) Right lower extremity: knee (Limited ROM due to pain. Severe valgus right knee.) Details: tenderness, swelling (mild, global knee) and crepitus; no ecchymosis and no unusual warmth Psych Appearance: grossly normal Speech and movement: Normal speech and movement present Affect: normal affect Attitude: cooperative Thought process: Normal thought process present Thought content: Normal thought content present, suicidality (none) and Depressive thoughts present Insight: Good insight present (Psych) Judgement: Good judgement present (Psych) Results Reviewed Results Reviewed: XR KNEE 1-2 VIEWS RIGHT 05/07/24 HISTORY: M17.0 - Bilateral primary osteoarthritis of knee COMPARISON: There are no prior studies available for comparison. FINDINGS: Three views of the right knee are submitted. The bones are osteopenic. There is no fracture or dislocation. There is severe osteoarthritis of the lateral compartment with joint space narrowing and osteophyte formation. There is a small joint effusion. There is calcification of the popliteal artery. IMPRESSION: Osteopenia. Small joint effusion. Severe osteoarthritis of the lateral compartment. MR KNEE WITHOUT CONTRAST, RIGHT 07/15/24 CLINICAL INFORMATION: Right knee pain, history of arthritis. COMPARISON: Right knee plain films 05/07/2024. TECHNIQUE: MRI of the right knee without contrast was performed using routine sequences on a 1.5 Kelly Siemens high-field scanner. FINDINGS: MENISCI: Medial Meniscus: Irregular and mildly complex radial tearing of the anterior horn, body, and posterior horn. Lateral Meniscus: Severe high-grade degenerative type tearing of the entire meniscus. The majority of the meniscus has been extruded into the para meniscal recess. LIGAMENTS: Anterior Cruciate: Fibers appear intact. High signal associated is likely intrasubstance degeneration. Posterior Cruciate: Tremors appear intact. There is intrasubstance degeneration. Medial Collateral: Intact and normal in signal. Lateral Collateral Complex: The biceps femoris tendon, and conjoined tendon are normal in signal. The fibular collateral ligament is intact although there is high signal abutting the attachment on the lateral femoral condyle, likely degenerative. Diffusely high signal in the popliteus tendon is also felt to represent intrasubstance degeneration. No discrete tearing is evident. EXTENSOR MECHANISM: Extensor mechanism is intact and grossly normal in signal. Hoffa's fat pad, the suprapatellar fat pad, and prefemoral fat pad appear grossly normal in signal. PATELLAR RETINACULUM: Intact and normal in signal. No discrete tear. BONE: Extensive degenerative subchondral bone plate edema and cystic changes throughout the lateral femoral condyle and lateral tibial plateau. There is no fracture or contusion identified. JOINTS/CARTILAGE: Medial Compartment: Moderate cartilage thinning and eburnation of the weightbearing condyle and tibial plateau without full-thickness defect. No gross subchondral bone plate edema. Lateral Compartment: There is complete cartilage loss of the lateral femoral condyle and lateral tibial plateau, with [id number]-[id number] appearance, extensive subchondral cystic changes and sclerosis, and subchondral bone plate edema throughout the lateral plateau and lateral femoral condyle. There are large marginal lead projecting osteophytes. There are femoral tunnel osteophytes and there is spurring of the tibial spines. Patellofemoral Compartment: There is normal alignment of the patella within the trochlea. Moderate cartilage thinning and eburnation of the trochlear cartilage without full-thickness defect or subchondral bone plate edema. There is near complete cartilage loss involving the medial and lateral patellar facets, with small foci of subchondral bone plate edema. JOINT FLUID AND BURSAE: There is a small joint effusion present. There is synovial hypertrophy within the suprapatellar bursa. There is a cystic structure just deep to the popliteus muscle consistent with a ganglion cyst (series 8, image 24). There is diffuse high signal on degenerative appearing edema within the popliteus muscle, and there is trace fluid in the medial popliteal fossa. There is mild degenerative appearing edema within the superior gastrocs muscles. OTHER: There is mild subcutaneous edema throughout the imaged soft tissues. IMPRESSION: 1. End-stage degenerative arthritis in the lateral compartment with [id number] appearance, extensive subchondral cystic changes, sclerosis, and subchondral bone plate edema. There is extensive degenerative type tearing of the lateral meniscus. 2. Moderate degenerative arthritis in the medial compartment. There is irregular type radial tearing of the anterior horn, body, and posterior horn of the medial meniscus. 3. There is a small joint effusion. 4. Cruciate ligaments are intact although there is high signal associated, likely intrasubstance degeneration. 5. High signal throughout the popliteus muscle and tendon, likely degenerative. 6. There is nonspecific synovial hypertrophy within the suprapatellar bursa. 7. There is a small amount of fluid in the medial popliteal fossa. 8. There are additional ancillary findings as discussed in the body of the report. Assessment & Plan Assessment & Plan (1) Knee pain, right: Code(s): M25.561 - Pain in right knee Category: Medical Qualifiers: Chronicity: chronic Qualified Code(s): M25.561 - Pain in right knee; G89.29 - Other chronic pain (2) Osteoarthritis of right knee: Comment: Uncontrolled knee pain. She has failed 1 cortisone injection and hyaluronic acid injection, gel 1. We discussed medical management of knee osteoarthritis. She has temporary benefit with Tylenol. Pain is uncontrolled and she would not be able to participate in physical therapy. We discussed the importance of bracing and trying to control edema in legs to enable improved ambulation. We discussed in setting of CKD she has limited with medications to use. Contraindication to oral NSAIDs and duloxetine. We discussed considering gabapentin. Discussed side effects, benefits and drug monitoring. We also discussed considering geniculate nerve block with pain management referral. She would like to proceed with trying gabapentin. Code(s): M17.11 - Unilateral primary osteoarthritis, right knee Category: Medical Qualifiers: Osteoarthritis type: primary Qualified Code(s): M17.11 - Unilateral primary osteoarthritis, right knee Plan Discussed right knee MRI results, confirming severe end stage degenerative changes and osteoarthritis. We reviewed interventional treatments for chronic right knee pain including diagnostic nerve blocks for potential genicular radiofrequency ablation vs peripheral nerve stimulation with Sprint therapy. Unfortunately her insurance does not provide complete coverage for RFA procedure. Therefore we will proceed with right diagnostic saphenous nerve block with local and ultrasound guidance. Expectations, risks and benefits were reviewed. Patient is aware she will be contacted to schedule this procedure. The treatment plan reflects current constraints against knee replacement due to financial considerations and caregiving responsibilities. Patient will follow up with [facility] when she is ready to consider knee replacement. Concerns about past pain management experiences were addressed, and the importance of continuing her current oxycodone prescription via her primary care provider source was reinforced. The conversation focused on available procedures, expected benefits, and limitations, providing the patient understa nding and agency over her pain management plan. All questions and concerns have been answered and patient agreed with the plan. Follow up after injections and sooner as needed. Patient was informed and verbally consented to the use of an ambient scribe for clinic note documentation during this visit. Coding Level of Care Code Est Pt Level 4 (18212) Complex EM visit Add On G2211 Diagnoses Chronic pain of right knee M25.561; G89.29 Chronicity: chronic Primary osteoarthritis of right knee M17.11 Osteoarthritis type: primary
[2024-08-05 16:12] VITALS: BP 214/93; PULSE 93
[2024-08-05 16:19] VITALS: BP 150/70
--- OUTSIDE RECORDS SUMMARY | 2024-08-05 18:11 | XMS_ITS | Clinical Summary ---
Author Organization [employer] Address [address] [place] [address] Care Team Providers Care Oxygen Therapy Teacher Name Role Phone Unavailable Primary Care Provider [...]
== END 2024-08-05 16:11 | disposition home or self-care (01) ==
LOC: HO.PMC 15:44
PROVIDERS: PCP Physician Assistant; Visit Provider Nurse Practitioner Family
DX: M25.561 Pain in right knee (principal); G89.29 Other chronic pain; M17.11 Unilateral primary osteoarthritis, right knee
CPT/HCPCS: 99214; G2211

== ENCOUNTER → 2024-08-05 15:43 | Outpatient (BNVA) | payer MEDICARE, MEDICAID, SELFPAY | PROVIDERS: PCP Physician Assistant; Visit Provider Nurse Practitioner Family | DX: M25.561 Pain in right knee (principal); M17.11 Unilateral primary osteoarthritis, right knee; G89.29 Other chronic pain | CPT/HCPCS: 99212 ==

== ENCOUNTER 2024-08-06 13:24 | Outpatient (AMB) | payer MEDICARE, MEDICAID, SELFPAY ==
--- NOTE | 2024-08-06 13:34 | HO.NEPHOV ---
Vital Signs 08/06/24 13:37 Height 5 ft 8 in Weight 161 lb BMI 24.5 BP 174/80 H Blood Pressure Location Rt brachial Position Sitting Pulse 72 Pulse Source Pulse Oximeter Pulse Oximetry (%) 99 Oxygen Delivery Method Room Air Intake Visit Reasons: 1mon Procrit [id number] Improvement Coordinator Required: No Accompanied by: Self / Same As Patient Allergies codeine Allergy (Intermediate, Verified 08/06/24 13:35) Nausea latex Allergy (Intermediate, Verified 08/06/24 13:35) Rash hydrochlorothiazide Allergy (Unknown, Verified 08/06/24 13:35) Unknown morphine Allergy (Unknown, Verified 08/06/24 13:35) Nausea SHAYY Inhibitors Adverse Reaction (Unknown, Verified 08/06/24 13:35) Unknown HPI Comments Details: Yecenia is a 74-year-old female with a PMH significant for?CAD s/p stenting 2018, hx of DVT with pulmonary embolism 2017 on Eliquis, HTN, HLD, CKD 3, chronic anemia requiring transfusions in the past, diet-controlled diabetes type 2, osteoarthritis, and chronic lower leg edema was seen for F/U today. She has been needing PRBC transfusions. Patient also expressed her frustration about ongoing right knee and leg pain and swelling afternoon undergoing intra-articular steroids prior to admission. She was seen by orthopedic service and pain management as an outpatient. Patient has been refusing to have total replacement of her right knee as she has to care for her mother. Aspirin was restarted and dose decreased to 81 mg p.o. daily. She recently had pulmonary edema as well as anemia and was admitted in [facility] where she got diuresed, transfused and underwent colonoscopy. She had iron transfusion this morning. [facility] Medical History CAD (coronary artery disease) Osteoarthritis Hx of transfusion of packed red blood cells Diet-controlled diabetes mellitus Pulmonary embolism DVT (deep venous thrombosis) Anemia in chronic kidney disease Hypertension CKD (chronic kidney disease) stage 3, GFR 30-59 ml/min Surgical History Hx of heart artery stent History of partial hysterectomy Family History Maternal Grandfather Stomach cancer Social History Household Members: Family and None Housing: Apartment Do you presently have visiting nurse or other home services: No Alcohol intake: never Patient Tobacco Use Status: Former Tobacco user Tobacco use type: Cigarette Current occupational status: retired Review of Systems Const All systems reviewed & are unremarkable except as noted in HPI and below Physical Exam Const General: no acute distress Orientation/consciousness: patient oriented x3 Eyes EOM: EOMs intact bilaterally Neck Neck: Yes supple Resp Auscultation: diminished lung sounds Cardio Rate: regular rate GI Palpation (GI): Soft to palpation Neuro General: patient oriented x3 Extrem General: Yes edema Office Meds epoetin [id number] 10,000 unit/mL injection solution Performing Provider: London Boyer MD [facility] Administered by: London Boyer MD on 08/06/24 13:57 Dose Route Admin Location Dispensed Lot Number Expiration Date [facility] [employer] Manager 40,000 unit subcut LUE 4 mL [id number] 03/22/26 3827-0003-06 [employer] Total Dispensed Waste 4 mL 0 % Results Reviewed Nephrology Results: Hgb, (12.0-16.0) 6.9 g/dl L* Δ 07/31/24 WBC, (4.8-10.8) 6.5 X10*3/uL 07/31/24 Plt Count, (160-400) 312 X10*3/uL 07/31/24 Sodium, (135-145) 143 mmol/L 07/31/24 Potassium, (3.3-5.1) 4.2 mmol/L 07/31/24 Chloride, (96-108) 108 mmol/L 07/31/24 Carbon Dioxide, (22-29) 26 mmol/L 07/31/24 BUN, (9-16) 73 mg/dL H 07/31/24 Creatinine, (0.5-1.4) 2.80 mg/dL H 07/31/24 Calcium, (8.4-10.2) 9.0 mg/dL 07/31/24 Assessment & Plan Assessment & Plan (1) Hypertension: Code(s): I10 - Essential (primary) hypertension Category: Medical Qualifiers: Hypertension type: primary hypertension Qualified Code(s): I10 - Essential (primary) hypertension (2) Secondary hyperparathyroidism (of renal origin): Code(s): N25.81 - Secondary hyperparathyroidism of renal origin Category: Medical (3) CKD (chronic kidney disease) stage 3, GFR 30-59 ml/min: Code(s): N18.30 - Chronic kidney disease, stage 3 unspecified Category: Medical Qualifiers: Chronic kidney disease stage 3 subtype: stage 3a (GFR 45-59) Qualified Code(s): N18.31 - Chronic kidney disease, stage 3a (4) Anemia in chronic kidney disease: Code(s): N18.9 - Chronic kidney disease, unspecified; D63.1 - Anemia in chronic kidney disease Category: Medical Qualifiers: Chronic kidney disease stage: stage 3 (moderate) Chronic kidney disease stage 3 subtype: stage 3b (GFR 30-44) Qualified Code(s): N18.32 - Chronic kidney disease, stage 3b; D63.1 - Anemia in chronic kidney disease (5) Iron deficiency: Code(s): E61.1 - Iron deficiency Category: Medical Plan Yecenia has chronic kidney disease and longstanding hypertension. 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 She is known to have coronary artery disease and has undergone angioplasty and stenting. She had lower endoscopy . She has seen GI and has a F/U . She should continue lasix 40 mg bid. I administered Procrit 40 K Units in the office today. She may also need Hematology consult +/- bone marrow biopsy. She needs to maintain low-sodium & K diet. Follow up blood work ordered. Answered all questions Orders: Orders Complete Blood Count Auto Diff 3 Weeks D63.1 - Anemia in chronic kidney disease, E61.1 - Iron deficiency, I10 - Essential (primary) hypertension, N18.31 - Chronic kidney disease, stage 3a, N18.32 - Chronic kidney disease, stage 3b, N25.81 - Secondary hyperparathyroidism of renal origin Electrolytes 3 Weeks D63.1 - Anemia in chronic kidney disease, E61.1 - Iron deficiency, I10 - Essential (primary) hypertension, N18.31 - Chronic kidney disease, stage 3a, N18.32 - Chronic kidney disease, stage 3b, N25.81 - Secondary hyperparathyroidism of renal origin Blood Urea Nitrogen 3 Weeks D63.1 - Anemia in chronic kidney disease, E61.1 - Iron deficiency, I10 - Essential (primary) hypertension, N18.31 - Chronic kidney disease, stage 3a, N18.32 - Chronic kidney disease, stage 3b, N25.81 - Secondary hyperparathyroidism of renal origin AMB Epoetin Injection Practice Supplied Today D63.1 - Anemia in chronic kidney disease, N18.32 - Chronic kidney disease, stage 3b Calcium 3 Weeks D63.1 - Anemia in chronic kidney disease, E61.1 - Iron deficiency, I10 - Essential (primary) hypertension, N18.31 - Chronic kidney disease, stage 3a, N18.32 - Chronic kidney disease, stage 3b, N25.81 - Secondary hyperparathyroidism of renal origin Creatinine 3 Weeks D63.1 - Anemia in chronic kidney disease, E61.1 - Iron deficiency, I10 - Essential (primary) hypertension, N18.31 - Chronic kidney disease, stage 3a, N18.32 - Chronic kidney disease, stage 3b, N25.81 - Secondary hyperparathyroidism of renal origin Phosphorus 3 Weeks D63.1 - Anemia in chronic kidney disease, E61.1 - Iron deficiency, I10 - Essential (primary) hypertension, N18.31 - Chronic kidney disease, stage 3a, N18.32 - Chronic kidney disease, stage 3b, N25.81 - Secondary hyperparathyroidism of renal origin Coding Level of Care Code Est Pt Level 4 (18627) Diagnoses Primary hypertension I10 Hypertension type: primary hypertension Secondary hyperparathyroidism (of renal origin) N25.81 Stage 3a chronic kidney disease N18.31 Chronic kidney disease stage 3 subtype: stage 3a (GFR 45-59) Anemia in stage 3b chronic kidney disease N18.32; D63.1 Chronic kidney disease stage: stage 3 (moderate) Chronic kidney disease stage 3 subtype: stage 3b (GFR 30-44) Iron deficiency E61.1
[2024-08-06 13:37] VITALS: BP 174/80; PULSE 72; O2SAT 99; BMI 24.5
--- OUTSIDE RECORDS SUMMARY | 2024-08-06 15:20 | XMS_ITS | Clinical Summary ---
Author Organization [employer] Address [address] [place] [address] Care Team Providers Care Inside Sales Agent Name Role Phone Unavailable Primary Care Provider [...]
== END 2024-08-06 14:16 | disposition home or self-care (01) ==
LOC: HO.HKA 13:25
PROVIDERS: PCP Physician Assistant; Visit Provider Internal Medicine Nephrology
DX: I10 Essential (primary) hypertension (principal); N25.81 Secondary hyperparathyroidism of renal origin; N18.31 Chronic kidney disease, stage 3a; N18.32 Chronic kidney disease, stage 3b; D63.1 Anemia in chronic kidney disease; E61.1 Iron deficiency
CPT/HCPCS: 99214

== ENCOUNTER → 2024-08-06 13:24 | Outpatient (BNVA) | payer MEDICARE, MEDICAID, SELFPAY | PROVIDERS: PCP Physician Assistant; Visit Provider Internal Medicine Nephrology | DX: I12.9 Hypertensive chronic kidney disease with stage 1 through stage 4 chronic kidney disease, or unspecified chronic kidney disease (principal); N18.32 Chronic kidney disease, stage 3b; D63.1 Anemia in chronic kidney disease; N25.81 Secondary hyperparathyroidism of renal origin; E61.1 Iron deficiency | CPT/HCPCS: 96372; 99212; Q5106 ==

== ENCOUNTER 2024-08-13 11:41 | Inpatient (IN) | payer MEDICARE, MEDICAID, SELFPAY ==
[2024-08-13] VITALS (8 sets, daily range): BP systolic 164–242; BP diastolic 58–107; PULSE 68–105; RESP 14–20; TEMP 36.3–36.9; O2SAT 95–99; BMI 24.3
--- NOTE | ~2024-08-13 | XR_ITS ---
EXAMINATION: XR ABDOMEN 1 VIEW (KUB) HISTORY: patency capsule COMPARISON: Comparison is made with the prior examination dated 08/18/2024. FINDINGS: Portable supine and upright views of the abdomen performed at 7:42 AM are submitted. The bowel gas pattern is unremarkable. There is no free intraperitoneal gas. Again seen is a radiopaque capsule in the pelvis. There are vascular calcifications. There is degenerative disc disease of the spine. The bones are intact. XR/XR KUB IMPRESSION: Radiopaque capsule in the pelvis without change. Electronically signed by: Raphael Holt MD 08/19/2024 08:00 AM EDT
--- NOTE | ~2024-08-13 | XR_ITS ---
CLINICAL HISTORY: patency capsule --- Additional Notes or Special Instructions: pls perform at 7pm 1 view abdomen Comparison: None provided Findings: 1.7 x 1.2 cm ovoid radiopaque density projecting over the region of the rectum. No bowel obstruction. No pneumoperitoneum or pneumatosis. No acute fractures. IMPRESSION: 1.7 x 1.2 cm ovoid radiopaque density projecting over the region of the rectum. This document has been electronically signed by: Dayna Johnson MD on 08/18/2024 20:30:06
--- NOTE | ~2024-08-13 | CT_ITS ---
EXAMINATION: CT ABDOMEN AND PELVIS WITHOUT CONTRAST CLINICAL INFORMATION: Epigastric pain. DLP: 397 mGY*cm COMPARISON: None available. TECHNIQUE: Multidetector volumetric imaging was performed from the superior aspect of the liver through the pubic symphysis. Sagittal and coronal reformatted images were obtained on the technologist's workstation. This CT examination was performed using dose optimization techniques as appropriate, variously including the following: *Automated exposure control *Adjustment of mA and/or kV according to patient size (this includes techniques or standardized protocols for targeted exams where dose is matched to indication/reason for exam; i.e. extremities or head) *Use of iterative reconstruction technique FINDINGS: LUNG BASES: There is minimal linear atelectasis. LIVER, GALLBLADDER, AND BILIARY TREE: The liver is normal in size, shape, and attenuation. No focal hepatic lesion or biliary ductal dilatation is present. The gallbladder is unremarkable with no evidence of radiopaque gallstones, gallbladder wall thickening, or obvious pericholecystic inflammatory changes. PANCREAS: Unremarkable. SPLEEN: Focal area of hypoattenuation in the lateral superior aspect of the spleen and it measures 11 x 17 mm and 27 Hounsfield units. ADRENAL GLANDS: Unremarkable. KIDNEYS AND URETERS: There is an exophytic simple renal cyst in the right upper kidney measuring 15 mm diameter. No stones or hydronephrosis is evident. BLADDER: Unremarkable. GASTROINTESTINAL TRACT: Small sliding hiatal hernia involving gastric cardia is present. The cecum is situated deep in the pelvis, extending to the presacral region. It appears wall and there is stranding of the adjacent mesentery. Abnormality extends into the lower portion of the right colon. Appendix is gas-filled. There is also mild thickening and ill-defined margins in the terminal ileum. ABDOMINAL WALL: No significant hernia is appreciated. LYMPH NODES: Normal. VASCULAR: Moderate atherosclerotic calcifications present in the aorta, iliac arteries, and SMA. PELVIC VISCERA: Uterus and ovaries are nonvisualized and may be surgically absent. OSSEOUS STRUCTURES: Moderate degenerative changes are present in the lumbar spine facets with sclerosis and osteophytes. There is mild disc space narrowing in the lower lumbar spine. There is mild to moderate degenerative changes in the right greater than left hips. There is osteopenia. CT/CT abdomen pelvis wo IV con IMPRESSION: There is thickening of the lower right colon and cecum and terminal ileum. The cecum is positioned deep in the pelvis, in the presacral region. Possible etiologies include infection, ischemia, inflammatory bowel disease, and neoplasm. No abscess or free air is demonstrated. There is a small sliding hiatal hernia. There is an indeterminate low attenuating lesion in the anterolateral spleen. Isolated malignancies of the spleen are rare, though possible. More likely, it represents a pseudocyst or proteinaceous cyst. Consider 3-6 month follow-up. Moderate atherosclerotic disease. Fleischner guidelines were followed. Electronically signed by: Jameson Castro MD 08/13/2024 05:26 PM EDT
--- NOTE | ~2024-08-13 | XR_ITS ---
EXAMINATION: XR ABDOMEN KUB CLINICAL INDICATION: patency capsule follow-up COMPARISON: Comparison with x-ray performed 4 hours earlier and 28 hours earlier TECHNIQUE: AP view of the abdomen. FINDINGS: Again seen is a cylindrical radiodense marker projecting centrally in the pelvis, probably in the rectum. No other change. XR/XR KUB IMPRESSION: Radiopaque marker is in the central pelvis, probably in the rectum. Electronically signed by: Jameson Castro MD 08/19/2024 12:58 PM EDT
[2024-08-13 12:36] LABS: MANUAL DIFF FLAG NO
[2024-08-13 12:40] LABS: Hematocrit 28.2 % (37.0-47.0); Hemoglobin 8.0 g/dl (12.0-16.0); Imm Gran Abs Auto 0.02 X10*3/uL (0.00-0.03); Imm Gran Pct Auto 0.3 % (0.0-0.4); Lymphocytes Absolute Auto 0.5 X10*3/uL (1.2-4.9); Mean Corpuscular HGB Conc 28.4 g/dl (31.0-35.0); Mean Corpuscular Hemoglobin 26.7 pg (27.0-33.0); Mean Corpuscular Volume 94.0 fL (80.0-98.0); NRBC Abs Auto 0.020 X10*3/uL (0.0-0.012); NRBC Pct Auto 0.3 /100WBC (0.0-0.2); Platelet Count 463 X10*3/uL (160-400); Red Blood Count 3.00 X10*6/uL (4.20-5.50); White Blood Count 6.6 X10*3/uL (4.8-10.8)
--- NOTE | 2024-08-13 12:40 | ED.ABDPAIN ---
HPI - Abdominal Pain General Chief Complaint: Abdominal Pain Stated Complaint: Vomiting mucous, nausea Time Seen by Provider: 08/13/24 12:38 Source: patient Mode of arrival: EMS Limitations: no limitations History of Present Illness ED Provider: Nigel Clements PA-C HPI narrative: 74-year-old female with medical history of chronic anemia requiring transfusion, HTN, hypothyroidism, HLD, CKDIII, presents to the ED today due to epigastric pain and nausea which started last night. Patient states she was out in the heat all day yesterday taking a bus to visit her mother who is in hospice. Patient states she felt fine yesterday but last night started noticing intermittent epigastric pain. Patient states she woke up this morning with moderate nausea and inability to vomit. Patient states she received transfusion last week. Patient is quite anxious, due to recently putting her mother on hospice, and this abdominal pain. Patient states she was unable to take her medications this morning including hypertension medications. Denies chest pain, shortness of breath, vomiting, black/tarry stool, headache, visual changes. MD elicited complaint: abdominal pain Pain Consistency: intermittent Location: epigastric Severity: moderate Quality: aching and sharp Radiation: none Migration to: no migration Exacerbating factors: movement Relieving factors: nothing Associated symptoms: nausea Related Data Home Medications ?Medication ?Instructions ?Recorded ?Confirmed apixaban 2.5 mg tablet (Eliquis) 2.5 mg PO BID 01/30/23 07/23/24 ascorbate calcium (vitamin C) 500 1 g PO BEDTIME 02/27/24 07/23/24 mg tablet cholecalciferol (vitamin D3) 10 10 mcg PO DAILY 02/27/24 07/23/24 mcg (400 unit) capsule mecobalamin (vitamin B12) 1,000 1,000 mcg PO DAILY 02/27/24 07/23/24 mcg chewable tablet acetaminophen 500 mg tablet 1,500 mg PO DAILY PRN Pain 05/08/24 07/23/24 clonidine HCl 0.1 mg tablet 0.1 mg PO TID 05/08/24 07/23/24 gabapentin 100 mg capsule 100 mg PO DAILY 07/02/24 07/23/24 aspirin 81 mg chewable tablet 1 tab PO DAILY 08/13/24 Previous Rx's ?Medication ?Instructions ?Recorded isosorbide mononitrate 30 mg 30 mg PO TID #270 tabs 02/25/24 tablet,extended release 24 hr leg brace (Knee Support Brace) #1 ea 05/07/24 metoprolol tartrate 50 mg tablet 50 mg PO BID #90 tabs 05/15/24 furosemide 20 mg tablet 40 mg (2 x 20 mg) PO BID #90 tabs 06/18/24 oxycodone 10 mg tablet 10 mg PO Q6H PRN knee pain #15 tabs 08/04/24 prednisone 5 mg tablet 5 mg PO DAILY 10 days #10 tabs 08/04/24 Allergies Allergy/AdvReac Type Severity Reaction Status Date / Time codeine Allergy Intermediate Nausea Verified 08/13/24 11:59 latex Allergy Intermediate Rash Verified 08/13/24 11:59 hydrochlorothiazide Allergy Unknown Unknown Verified 08/13/24 11:59 morphine Allergy Unknown Nausea Verified 08/13/24 11:59 SHAYY Inhibitors AdvReac Unknown Unknown Verified 08/13/24 11:59 Review of Systems Review of Systems CONST: Negative for fever, body aches and chills. POS anxiety HENT: Negative for neck pain/stiffness, headache, congestion, sore throat, swelling. EYES: Negative for discharge/pain or vision changes. RESP: Negative for cough/hemoptysis and shortness of breath. CV: Negative chest pain, difficulty breathing, palpitations. ABD: POS pain, nausea. Negative vomiting. : Negative increase frequency, dysuria, blood in urine or stool. MUSC: Negative for muscle aches, edema. SKIN: Negative rash, lesions/sores. NEURO: Negative headache, dizziness, weakness. [facility] Past Medical History Attestation statement: The following information was validated with the patient. Source: old records reviewed and nursing notes reviewed Medical History CAD (coronary artery disease) Osteoarthritis Hx of transfusion of packed red blood cells Diet-controlled diabetes mellitus Pulmonary embolism DVT (deep venous thrombosis) Anemia in chronic kidney disease Hypertension CKD (chronic kidney disease) stage 3, GFR 30-59 ml/min Surgical History Hx of heart artery stent History of partial hysterectomy Family History Family History Maternal Grandfather Stomach cancer Social History Social History Household Members: Family and None Housing: Apartment Do you presently have visiting nurse or other home services: No Alcohol intake: never Patient Tobacco Use Status: Former Tobacco user Tobacco use type: Cigarette Smoked in Last 30 Days: No Use of substances other than those prescribed or required for medical reasons: No Advance Directives: No Advance Directives Information Provided: Yes Current occupational status: retired Physical Exam ED Vital Signs: Vital Signs - 24 hr 08/13/24 11:57 08/13/24 12:00 08/13/24 16:00 Temperature 98.3 F 97.6 F Pulse Rate 82 90 97 Respiratory Rate 18 18 16 Blood Pressure 232/101 H 242/107 H 239/105 H Pulse Oximetry 97 98 97 Oxygen Delivery Method Room Air Room Air Room Air 08/13/24 18:26 08/13/24 20:45 08/13/24 21:19 Temperature 98.4 F 98.1 F Pulse Rate 73 68 72 Respiratory Rate 16 14 15 Blood Pressure 237/100 H 197/60 H 197/80 H Pulse Oximetry 97 96 95 Oxygen Delivery Method Room Air Room Air Room Air BMI result Body Mass Index 24.3 GENERAL APPEARANCE: ?AxOx4, slightly disheveled appearing, patient is tearful and anxious.. HEENT: ?NC, AT. MMM. EOMI, clear conjunctiva, oropharynx clear. NECK: ?Supple without lymphadenopathy.? No stiffness or restricted ROM. HEART:? Normal rate and regular rhythm, normal S1/S1, no m/r/g LUNGS:? CTAB, moving air well. No crackles or wheezes are heard. ABDOMEN: ?Soft, nondistended with good bowel sounds heard in all 4 quadrants. epigastric region TTP, no guarding, no rigidity, negative Gee's sign, no rebound tenderness. No overlying skin changes. BACK: No CVAT, no obvious deformity. EXTREMITIES: ?Without cyanosis, clubbing or edema. NEUROLOGICAL: ?Grossly nonfocal. Alert and oriented, moving all 4 extremities. Observed to ambulate with normal gait. Skin: ?Warm and dry without any rash. Medical Decision Making Medical Decision Making MDM Narrative: 74-year-old female with medical history of chronic anemia requiring transfusion, HTN, hypothyroidism, HLD, CKDIII, presents to the ED today due to epigastric pain and nausea which started last night. Patient states she was out in the heat all day yesterday taking a bus to visit her mother who is in hospice. Patient states she felt fine yesterday but last night started noticing intermittent epigastric pain. Patient states she woke up this morning with moderate nausea and inability to vomit. Patient states she received transfusion last week. Patient is quite anxious, due to recently putting her mother on hospice, and this abdominal pain. Patient states she was unable to take her medications this morning including hypertension medications Vital signs reveal elevated pressure at 232/101. Patient states she has not taken medication today. Patient medicated with a 0.1 mg of clonidine, 2 mg oral Ativan, and 20 mg omeprazole. All other vital signs WNL. Physical exam reveals mild epigastric tenderness to palpation, abdomen is soft, no rigidity, no guarding, negative Gee's sign, no rebound tenderness. No overlying skin changes. Labs without leukocytosis, revealed normocytic anemia with hemoglobin 8 and hematocrit 28.2%. Patient has chronic anemia which required transfusion, was last transfused this week with success. Creatinine elevated at 2.36, patient with CKD stage III, on chart review this is around patient's baseline. EKG without ST elevation/depression/T-wave abnormalities awaiting initial troponin. UA without infection. Course 16:47- patient is still experiencing epigastric pain to palpation. We will obtain CT scan of abdomen, have to do this dry as patient's creatinine is too elevated to use oral contrast for investigation of acute abdomen. Patient's blood pressure still elevated at 239/105. Will give home dose of 50 mg metoprolol tartrate and reassess in an hour. Will give 20mg omeprazole, and GI cocktail for epigastric pain. 21:10- CT scan reveals thickening of the lower right colon and cecum and terminal ileum. With incidental finding of a low attenuating lesion of the anterolateral spleen, radiologist's recommending 3 to six-month follow-up. Epigastric pain has subsided at this time. Patient still experiencing nausea, will give 10mg IV reglan, and 1L of IV fluid. Initial troponin at 43.1, 2nd troponin 70.5. I reached out to welder fabricator Dr. Mcdowell who is not concerned about this +delta as he believes this elevation is caused by demand instead of ischemia. Patient is still hyperensive at 197/60 and continuous nausea. I have reached out to hospitalist Dr. Edge to admit the patient for hypertensive urgency and persistent nausea. Will put in bed request. I am signing out the patient to my colleague Audrey Berrios BEARING INSPECTOR who will resume care. Patient has been made aware of the plan for admission and to her care being resumed by my colleague. Patient is in understanding with the plan of care. Differential Diagnosis Differential Diagnoses: The differential diagnosis associated with the presentation includes Hypertensive urgency Electrolyte abnormality Pancreatitis ACS Admission/Observation Consideration of admission/observation: Escalation of care including admission/observation considered Consult Healthcare Provider Management of the patient was discussed with: Hospitalist (Dr. Edge) and Power Press Supervisor (Heat Regulator Dr. Mcdowell) Lab Data MDM Lab Attestation statement: I reviewed the patient's lab results. 08/13/24 12:32 08/13/24 12:32 Labs: Lab Results 08/13/24 08/13/24 08/13/24 Range/Units 12:32 13:49 16:22 WBC 6.6 (4.8-10.8) X10*3/uL RBC 3.00 L (4.20-5.50) X10*6/uL Hgb 8.0 L (12.0-16.0) g/dl Hct 28.2 L (37.0-47.0) % MCV 94.0 (80.0-98.0) fL MCH 26.7 L (27.0-33.0) pg MCHC 28.4 L (31.0-35.0) g/dl RDW 19.5 H (11.0-16.0) % Plt Count 463 H D (160-400) X10*3/uL MPV 9.1 L (9.4-12.3) fL Immature Gran % (Auto) 0.3 (0.0-0.4) % Neut % (Auto) 88.0 H (45-73) % Lymph % (Auto) 7.0 L (20-40) % [place] % (Auto) 4.2 (2-11) % Eos % (Auto) 0.0 (0-4) % Baso % (Auto) 0.5 (0-2) % Lymph # (Auto) 0.5 L (1.2-4.9) X10*3/uL [place] # (Auto) 0.3 (0.1-1.2) X10*3/uL Eos # (Auto) 0.0 (0.0-0.4) X10*3/uL Baso # (Auto) 0.0 (0.0-0.2) X10*3/uL Abs Immat Gran (auto) 0.02 (0.00-0.03) X10*3/uL Absolute Neuts (auto) 5.8 (2.0-8.3) x10*3/uL Absolute Nucleated RBC 0.020 H (0.0-0.012) X10*3/uL Nucleated RBC % (auto) 0.3 H (0.0-0.2) /100WBC Sodium 149 H (135-145) mmol/L Potassium 4.2 (3.3-5.1) mmol/L Chloride 113 H (96-108) mmol/L Carbon Dioxide 25 (22-29) mmol/L Anion Gap 15 (12-20) BUN 60 H (9-16) mg/dL Creatinine 2.36 H (0.5-1.4) mg/dL Estim Creat Clear Calc 21.3 Estimated GFR 20 Random Glucose 157 H (60-115) mg/dL Calcium 9.8 D (8.4-10.2) mg/dL Total Bilirubin 0.3 (0.0-1.0) mg/dL Direct Bilirubin 0.2 (0.0-0.5) mg/dL AST 19 (5-31) U/L ALT 8 (0-31) U/L Alkaline Phosphatase 120 H (39-117) U/L Troponin I High Sens 43.1 H D (<3.5-17.0) ng/L Total Protein 7.5 (6.5-8.0) g/dL Albumin 3.4 L (3.5-5.0) g/dL Lipase 47 (8-78) U/L Urine Color Straw Urine Appearance Clear Urine pH 6.0 (5.0-9.0) Ur Specific [place] 1.020 (1.005-1.025) Urine Protein 300 (3+) H (Neg-Trace) mg/dL Urine Glucose (UA) Negative (Negative) mg/dL Urine Ketones Negative (Negative) mg/dL Urine Blood Small (1+) H (Negative) Urine Nitrite Negative (Negative) Ur Leukocyte Esterase Negative (Negative) Urine RBC 3-5 H (0-2) /HPF Urine WBC 0-5 (0-5) /HPF Ur Squamous Epith Cells 0-2 (0-2) /HPF Urine Bacteria None Seen (None Seen) Hyaline Casts 0-2 (0-2) /LPF 08/13/24 Range/Units 19:55 WBC (4.8-10.8) X10*3/uL RBC (4.20-5.50) X10*6/uL Hgb (12.0-16.0) g/dl Hct (37.0-47.0) % MCV (80.0-98.0) fL MCH (27.0-33.0) pg MCHC (31.0-35.0) g/dl RDW (11.0-16.0) % Plt Count (160-400) X10*3/uL MPV (9.4-12.3) fL Immature Gran % (Auto) (0.0-0.4) % Neut % (Auto) (45-73) % Lymph % (Auto) (20-40) % [place] % (Auto) (2-11) % Eos % (Auto) (0-4) % Baso % (Auto) (0-2) % Lymph # (Auto) (1.2-4.9) X10*3/uL [place] # (Auto) (0.1-1.2) X10*3/uL Eos # (Auto) (0.0-0.4) X10*3/uL Baso # (Auto) (0.0-0.2) X10*3/uL Abs Immat Gran (auto) (0.00-0.03) X10*3/uL Absolute Neuts (auto) (2.0-8.3) x10*3/uL Absolute Nucleated RBC (0.0-0.012) X10*3/uL Nucleated RBC % (auto) (0.0-0.2) /100WBC Sodium (135-145) mmol/L Potassium (3.3-5.1) mmol/L Chloride (96-108) mmol/L Carbon Dioxide (22-29) mmol/L Anion Gap (12-20) BUN (9-16) mg/dL Creatinine (0.5-1.4) mg/dL Estim Creat Clear Calc Estimated GFR Random Glucose (60-115) mg/dL Calcium (8.4-10.2) mg/dL Total Bilirubin (0.0-1.0) mg/dL Direct Bilirubin (0.0-0.5) mg/dL AST (5-31) U/L ALT (0-31) U/L Alkaline Phosphatase (39-117) U/L Troponin I High Sens 70.5 H* D (<3.5-17.0) ng/L Total Protein (6.5-8.0) g/dL Albumin (3.5-5.0) g/dL Lipase (8-78) U/L Urine Color Urine Appearance Urine pH (5.0-9.0) Ur Specific [place] (1.005-1.025) Urine Protein (Neg-Trace) mg/dL Urine Glucose (UA) (Negative) mg/dL Urine Ketones (Negative) mg/dL Urine Blood (Negative) Urine Nitrite (Negative) Ur Leukocyte Esterase (Negative) Urine RBC (0-2) /HPF Urine WBC (0-5) /HPF Ur Squamous Epith Cells (0-2) /HPF Urine Bacteria (None Seen) Hyaline Casts (0-2) /LPF Independent Interpretation I performed an independent interpretation of an: EKG and CT Scan Interpretation: I independently interpreted the EKG Vent. Rate : 86 BPM Atrial Rate : 86 BPM P-R Int : 136 ms QRS Dur : 84 ms QT Int : 364 ms P-R-T Axes : 56 4 50 degrees QTcB Int : 435 ms Sinus rhythm with marked sinus arrhythmia Cannot rule out Anterior infarct , age undetermined Abnormal ECG When compared with ECG of 14-May-2024 10:14, T wave inversion no longer evident in Inferior leads T wave inversion no longer evident in Anterolateral leads Radiology Impression Discussion of test interpretation with radiology: I have reviewed the radiologist's reading. Radiologist Impression: FINDINGS: LUNG BASES: There is minimal linear atelectasis. LIVER, GALLBLADDER, AND BILIARY TREE: The liver is normal in size, shape, and attenuation. No focal hepatic lesion or biliary ductal dilatation is present. The gallbladder is unremarkable with no evidence of radiopaque gallstones, gallbladder wall thickening, or obvious pericholecystic inflammatory changes. PANCREAS: Unremarkable. SPLEEN: Focal area of hypoattenuation in the lateral superior aspect of the spleen and it measures 11 x 17 mm and 27 Hounsfield units. ADRENAL GLANDS: Unremarkable. KIDNEYS AND URETERS: There is an exophytic simple renal cyst in the right upper kidney measuring 15 mm diameter. No stones or hydronephrosis is evident. BLADDER: Unremarkable. GASTROINTESTINAL TRACT: Small sliding hiatal hernia involving gastric cardia is present. The cecum is situated deep in the pelvis, extending to the presacral region. It appears wall and there is stranding of the adjacent mesentery. Abnormality extends into the lower portion of the right colon. Appendix is gas-filled. There is also mild thickening and ill-defined margins in the terminal ileum. ABDOMINAL WALL: No significant hernia is appreciated. LYMPH NODES: Normal. VASCULAR: Moderate atherosclerotic calcifications present in the aorta, iliac arteries, and SMA. PELVIC VISCERA: Uterus and ovaries are nonvisualized and may be surgically absent. OSSEOUS STRUCTURES: Moderate degenerative changes are present in the lumbar spine facets with sclerosis and osteophytes. There is mild disc space narrowing in the lower lumbar spine. There is mild to moderate degenerative changes in the right greater than left hips. There is osteopenia. CT/CT abdomen pelvis wo IV con IMPRESSION: There is thickening of the lower right colon and cecum and terminal ileum. The cecum is positioned deep in the pelvis, in the presacral region. Possible etiologies include infection, ischemia, inflammatory bowel disease, and neoplasm. No abscess or free air is demonstrated. There is a small sliding hiatal hernia. There is an indeterminate low attenuating lesion in the anterolateral spleen. Isolated malignancies of the spleen are rare, though possible. More likely, it represents a pseudocyst or proteinaceous cyst. Consider 3-6 month follow-up. Moderate atherosclerotic disease. Fleischner guidelines were followed. Electronically signed by: Jameson Castro MD 08/13/2024 05:26 PM EDT Dictated By: Jameson Castro MD Signed By: <Electronically signed by Jameson Castro MD in OV> 08/13/24 1726 External Record Review External record reviewed: Inpatient record, Office record and Outpatient record Chronic Conditions Patient?s care impacted by: Hypertension and Other (CAD, CKDIII, T2DM) Medications Administered Discontinued Medications Generic Name Dose Route Start Last Admin Trade Name Zenobia PRN Reason Stop Dose Admin Al Hydroxide/Mg Hydroxide 15 ml 08/13/24 17:53 08/13/24 18:03 Magnesium Hydrox/Alum Hydrox 30 Ml Oral.Susp PO 08/13/24 17:54 15 ml ONCE ONE Administration Clonidine HCl 0.1 mg 08/13/24 13:53 08/13/24 14:27 Clonidine Hcl 0.1 Mg Tablet PO 08/13/24 13:54 0.1 mg ONCE ONE Administration Protocol Diazepam 5 mg 08/13/24 14:18 08/13/24 14:28 Diazepam 10 Mg/2 Ml Cartridge IVPUSH 08/13/24 14:19 5 mg STAT STA Administration Diazepam 2 mg 08/13/24 14:33 08/13/24 14:40 Diazepam 2 Mg Tablet PO 08/13/24 14:34 2 mg ONCE ONE Administration Hydralazine HCl 5 mg 08/13/24 17:50 08/13/24 18:03 Hydralazine Hcl 10 Mg Tablet PO 08/13/24 17:51 5 mg ONCE ONE Administration Protocol Hydralazine HCl 5 mg 08/13/24 19:11 08/13/24 19:42 Hydralazine Hcl 10 Mg Tablet PO 08/13/24 19:12 5 mg ONCE ONE Administration Protocol Lactated Ringer's 1,000 mls @ 999 mls/hr 08/13/24 21:09 08/13/24 21:15 Lr IV 08/13/24 22:09 999 mls/hr .Q1H1M ONE Administration Lidocaine HCl 15 ml 08/13/24 17:53 08/13/24 18:03 Lidocaine Hcl Viscous 2 % 15 Ml Solution MUCOUS MEM 08/13/24 17:54 15 ml ONCE ONE Administration Metoclopramide HCl 10 mg 08/13/24 21:08 08/13/24 21:15 Metoclopramide Hcl 10 Mg/2 Ml Vial IVPUSH 08/13/24 21:09 10 mg ONCE ONE Administration Metoprolol Tartrate 50 mg 08/13/24 13:53 08/13/24 14:40 Metoprolol Tartrate 50 Mg Tablet PO 08/13/24 13:54 Not Given ONCE ONE Protocol Metoprolol Tartrate 50 mg 08/13/24 16:20 08/13/24 16:57 Metoprolol Tartrate 50 Mg Tablet PO 08/13/24 16:21 50 mg ONCE ONE Administration Protocol Omeprazole 20 mg 08/13/24 14:33 08/13/24 14:40 Omeprazole 20 Mg Capsule.Dr PO 08/13/24 14:34 20 mg ONCE ONE Administration Ondansetron HCl 4 mg 08/13/24 13:53 08/13/24 14:27 Ondansetron Odt 4 Mg Tab.Rapdis TRANSLINGU 08/13/24 13:54 4 mg ONCE ONE Administration Discharge Plan Discharge Clinical Impression: Hypertensive urgency
--- NOTE | 2024-08-13 12:43 | PC.NURSE ---
Patient made some vague SI statements. Recently placed mom in hospice. Stated I just don't to live or do this anymore
[2024-08-13 12:52] LABS: Alanine Aminotransferase 8 U/L (0-31); Albumin Level 3.4 g/dL (3.5-5.0); Alkaline Phosphatase 120 U/L (39-117); Anion Gap 15 (12-20); Aspartate Amino Transferase 19 U/L (5-31); Blood Urea Nitrogen 60 mg/dL (9-16); Calcium 9.8 mg/dL (8.4-10.2); Carbon Dioxide 25 mmol/L (22-29); Chloride 113 mmol/L (96-108); Creatinine Clr Calc Pharmacy 21.3; Estimated Glomerular Filt Rate 20; Lipase 47 U/L (8-78); Potassium 4.2 mmol/L (3.3-5.1); Sodium 149 mmol/L (135-145); Total Protein 7.5 g/dL (6.5-8.0)
--- NOTE | 2024-08-13 13:18 | PC.NURSE ---
Addendum entered by Pebbles Sharma RN 08/13/24 13:18: Patient is a 74-year-old female with a PMH significant for?CAD s/p stenting 2019, hx of DVT with pulmonary embolism 2017 on Eliquis, HTN, HLD, CKD 3, chronic anemia requiring transfusions in the past, diet-controlled diabetes type 2, osteoarthritis, and chronic lower leg edema. She has been needing PRBC transfusions. Recently seen for ongoing right knee and leg pain and swelling afternoon undergoing intra-articular steroids prior to admission. She was seen by orthopedic service and pain management as an outpatient. Patient presents today with constant nausea with intermittent epigastric pain since last night. Received 4 mg of zofran in route with minimal effect. Patient emotionally labile. Recently placed mom on hospice and sister . Respirations even and non-labored. Abdomen soft, non-tender - c/o epigastric pain. Positive pedal pulses with LE edema Original Note: Medical History CAD (coronary artery disease) Osteoarthritis Hx of transfusion of packed red blood cells Diet-controlled diabetes mellitus Pulmonary embolism DVT (deep venous thrombosis) Anemia in chronic kidney disease Hypertension CKD (chronic kidney disease) stage 3, GFR 30-59 ml/min
[2024-08-13 14:02] LABS: Appearance Urine Clear; Glucose Urine UA Negative (Negative); PH 6.0 (5.0-9.0); Specific Gravity - Urine 1.020 (1.005-1.025); UMIC TRIGGER UACC YES
[2024-08-13] MEDS: diazePAM 10 MG/2 ML CARTRIDGE 5 MG IVPUSH (14:28)
--- OUTSIDE RECORDS SUMMARY | 2024-08-13 14:36 | XMS_ITS | Clinical Summary ---
Author Organization [employer] Address [address] [place] [address] Care Team Providers Care Care Coordinator Name Role Phone Unavailable Primary Care Provider [...]
--- NOTE | 2024-08-13 16:10 | ECG_ITS ---
Test Reason : EPIGASTRIC PAIN Blood Pressure : */* mmHG Vent. Rate : 86 BPM Atrial Rate : 86 BPM P-R Int : 136 ms QRS Dur : 84 ms QT Int : 364 ms P-R-T Axes : 56 4 50 degrees QTcB Int : 435 ms Sinus rhythm with marked sinus arrhythmia Cannot rule out Anterior infarct , age undetermined Abnormal ECG When compared with ECG of 14-May-2024 10:14, T wave inversion no longer evident in Inferior leads T wave inversion no longer evident in Anterolateral leads Referred By: Starr Manning Electronically Signed By: DESIREE LAGUNA
[2024-08-13 16:52] LABS: Troponin-I High Sensitivity 43.1 ng/L (<3.5-17.0)
[2024-08-13] MEDS: Lidocaine HCl Viscous 2 % 15 ML SOLUTION MUCOUS MEM (18:03)
[2024-08-13] MEDS: Magnesium Hydrox/Alum Hydrox 30 ML ORAL.SUSP 15 ML PO (18:03)
[2024-08-13 20:22] LABS: Troponin-I High Sensitivity 70.5 ng/L (<3.5-17.0)
[2024-08-13] MEDS: Lactated Ringers 1,000 ML 999 ML IV (21:15)
--- NOTE | 2024-08-13 21:58 | PM.IMHP ---
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 Patient has not been able to vomit and has intermittent epigastric pain that has resided. Patient does not use marijuana regularly. Patient does state she was exposed to marijuana smoke yesterday while waiting at the bus stop. Patient states that she recently had to place her mother in hospice after mother was hospitalized Sunday in [place]. This is creating an increased amount of stress for patient. Patient states similar events happened in 2019 when her sister . Patient was told she had Graves disease and received treatment. In addition patient underwent a PCI with stent to the coronary artery in 2019 as well. Patient wonders if her symptoms are related to the stress that she is undergoing now as she feels she should be with her mother at this time. Patient did receive 1 dose of Valium in the emergency department with some relief. Patient adds that she recently was told to increase her late 80 mg daily by her slate mixer. Patient feels this may have been too much and only took 40 yesterday. Patient states she was out in the heat yesterday longer than expected. There is no evidence of heat exhaustion or stroke at this time. Patient does not have leukocytosis or fever. CT scan indicates thickening of the lower right colon and cecum and the terminal ileum. Differentials include infection, ischemia, inflammatory bowel disease versus neoplasm. Patient was in the emergency department July 31 with evidence of acute anemia and a hemoglobin of 6.5. Prior to that in April of 2024 patient was followed by GI for possible GI bleed and was scheduled for a colonoscopy and VCE placement for 05/21/2024. Patient stated she did undergo the colonoscopy at [facility] and was told nothing was found. Lactic acid pending Blood pressure greatly elevated on arrival. Patient has received oral hydralazine with some effect. Blood pressure currently 193 over 88. Patient denies any headache or visual changes. Troponins are now elevated. EKG sinus rhythm with marked sinus arrhythmia. T-wave inversions no longer evident in inferior and anterior lateral leads when compared to previous EKG. Echo 02/06/2024 grade I (mild) diastolic dysfunction, EF 58%. BNP pending. Repeat troponin pending. Patient was seen by Nephrology on 08/06/2024 and received 52723 units of subcutaneous Epogen. Current H and H is 8 and 28.2. Platelets 463K. Patient his last iron infusion was 1 week prior. Patient did follow with Hematology and has an upcoming appointment to review need for Eliquis. When patient was 1st diagnosed with PE/DVT she was told that she would have to be on Eliquis for the rest of her life. Review of Systems Review of Systems: Patient currently denies any nausea or abdominal pain. Patient states she feels better than when she arrived. Patient is experiencing increased anxiety and stress as she recently placed her mother in hospice this past Sunday. Patient denies any chest pain, shortness of breath at rest or with exertion. Patient denies any fever, chills or night sweats. Yes all other systems are reviewed and are negative [facility] Medical History (Updated 08/13/24 @ 22:41 by CHANTAL Tovar-ELIZABETH) Graves disease CAD (coronary artery disease) Osteoarthritis Hx of transfusion of packed red blood cells Diet-controlled diabetes mellitus Pulmonary embolism DVT (deep venous thrombosis) Anemia in chronic kidney disease Hypertension CKD (chronic kidney disease) stage 3, GFR 30-59 ml/min Cognitive capacity: Alert and orientated x3 Functional capacity: independent ambulation Patient : No Family History Maternal Grandfather Stomach cancer Surgical History Hx of heart artery stent History of partial hysterectomy Social History Household Members: Family and None Housing: Apartment Do you presently have visiting nurse or other home services: No Alcohol intake: never Patient Tobacco Use Status: Former Tobacco user Tobacco use type: Cigarette Smoked in Last 30 Days: No Use of substances other than those prescribed or required for medical reasons: No Advance Directives: No Advance Directives Information Provided: Yes Patient : No Current occupational status: retired Ebola Risk: Travel/Contact With Anyone From Affected Area/s: No Has Patient Experienced Ebola Symptoms: No Meds Allergies Allergy/AdvReac Type Severity Reaction Status Date / Time codeine Allergy Intermediate Nausea Verified 08/13/24 11:59 latex Allergy Intermediate Rash Verified 08/13/24 11:59 hydrochlorothiazide Allergy Unknown Unknown Verified 08/13/24 11:59 morphine Allergy Unknown Nausea Verified 08/13/24 11:59 SHAYY Inhibitors AdvReac Unknown Unknown Verified 08/13/24 11:59 Active Medications: Current Medications Acetaminophen (Acetaminophen 325 Mg Tablet) 650 mg PO Q6H PRN PRN Reason: Pain, Mild 1-3,fever,headache Albuterol/Ipratropium (Albuterol/Iprat 2.5/0.5mg 3 Ml Ampul.Neb) 3 ml INHALE Q4H PRN PRN Reason: Shortness of Breath/Wheezing Calcium Carbonate (Calcium Carbonate 750 Mg Tab.Chew) 750 mg PO Q4H PRN PRN Reason: Heartburn Lactated Ringer's (Lr) 1,000 mls @ 999 mls/hr IV .Q1H1M ONE Stop: 08/13/24 22:09 Last Admin: 08/13/24 21:15 Dose: 999 mls/hr Magnesium Hydroxide (Milk Of Magnesia 30 Ml Oral.Susp) 30 ml PO DAILY PRN PRN Reason: Constipation Melatonin (Melatonin 3 Mg Tablet) 6 mg PO BEDTIME PRN PRN Reason: Insomnia Ondansetron HCl (Ondansetron Hcl 4 Mg/2 Ml Vial) 4 mg IVPUSH Q8H PRN PRN Reason: Nausea and Vomiting Senna (Sennosides 8.6 Mg Tablet) 17.2 mg PO BEDTIME MEHDI Sodium Chloride (0.9 % Sodium Chloride Flush 3 Ml Syringe) 3 ml IVFLUSH QSHIFT MEHDI Home Medications ?Medication ?Instructions ?Recorded ?Confirmed ?Last Taken ?Type apixaban 2.5 mg tablet (Eliquis) 2.5 mg PO BID 01/30/23 08/13/24 08/12/24 History ascorbate calcium (vitamin C) 500 1 g PO MOFR 02/27/24 08/13/24 08/11/24 History mg tablet mecobalamin (vitamin B12) 1,000 1,000 mcg PO DAILY 02/27/24 08/13/24 08/12/24 History mcg chewable tablet acetaminophen 500 mg tablet 1,500 mg PO DAILY PRN Pain 05/08/24 08/13/24 Unknown History clonidine HCl 0.1 mg tablet 0.1 mg PO TID 05/08/24 08/13/24 08/12/24 History aspirin 81 mg chewable tablet 1 tab PO DAILY 08/13/24 08/13/24 08/12/24 History furosemide 20 mg tablet 20 mg PO TID 08/13/24 08/13/24 08/12/24 History metoprolol tartrate 50 mg tablet 100 mg PO BID 08/13/24 08/13/24 08/12/24 History Physical Exam Vital Signs and Narrative: Vital Signs: Last Vital Signs Temp 97.3 F 08/13/24 21:56 Pulse 72 08/13/24 21:56 Resp 20 08/13/24 21:56 BP 184/58 H 08/13/24 21:56 Pulse Ox 97 08/13/24 21:56 O2 Del Method Room Air 08/13/24 21:56 BMI result Body Mass Index 24.3 Alert and orientated X3, able to give good history. Neuro: CN II-X11 intact, no deficits, visual acuity intact EYES: PERRLA, EOM intact, sclerae nonicteric, conjunctiva pink ENT: hearing intact, no issues with swallowing, uvula midline, lips moist, nares patent no epistaxis Cardiac: S1 S2 RRR, no murmur, no JVD, no edema in Lower ext Pulmonary: lungs clear to auscultation B Abdominal: BS active in all 4 quadrants, no guarding, tenderness, rebounding, mild distention MSK: strength 5/5 upper and lower extremities : no CVA tenderness no bladder distension Extremities: no edema in lower extremities, PT and DP pulses palpable +2 Psych: mood anxious, judgement and insight good Skin: Intact Results Labs 08/13/24 12:32 08/13/24 12:32 Labs: Laboratory Results - last 24 hr 08/13/24 08/13/24 08/13/24 12:32 13:49 16:22 MCV 94.0 MCH 26.7 L MCHC 28.4 L RDW 19.5 H Plt Count 463 H D MPV 9.1 L Immature Gran % (Auto) 0.3 Neut % (Auto) 88.0 H Lymph % (Auto) 7.0 L [place] % (Auto) 4.2 Eos % (Auto) 0.0 Baso % (Auto) 0.5 Lymph # (Auto) 0.5 L [place] # (Auto) 0.3 Eos # (Auto) 0.0 Baso # (Auto) 0.0 Abs Immat Gran (auto) 0.02 Absolute Neuts (auto) 5.8 Absolute Nucleated RBC 0.020 H Nucleated RBC % (auto) 0.3 H Anion Gap 15 Estim Creat Clear Calc 21.3 Estimated GFR 20 Random Glucose 157 H Calcium 9.8 D Total Bilirubin 0.3 Direct Bilirubin 0.2 AST 19 ALT 8 Alkaline Phosphatase 120 H Troponin I High Sens 43.1 H D Total Protein 7.5 Albumin 3.4 L Lipase 47 Urine Color Straw Urine Appearance Clear Urine pH 6.0 Ur Specific [place] 1.020 Urine Protein 300 (3+) H Urine Glucose (UA) Negative Urine Ketones Negative Urine Blood Small (1+) H Urine Nitrite Negative Ur Leukocyte Esterase Negative Urine RBC 3-5 H Urine WBC 0-5 Ur Squamous Epith Cells 0-2 Urine Bacteria None Seen Hyaline Casts 0-2 08/13/24 19:55 MCV MCH MCHC RDW Plt Count MPV Immature Gran % (Auto) Neut % (Auto) Lymph % (Auto) Quay % (Auto) Eos % (Auto) Baso % (Auto) Lymph # (Auto) [place] # (Auto) Eos # (Auto) Baso # (Auto) Abs Immat Gran (auto) Absolute Neuts (auto) Absolute Nucleated RBC Nucleated RBC % (auto) Anion Gap Estim Creat Clear Calc Estimated GFR Random Glucose Calcium Total Bilirubin Direct Bilirubin AST ALT Alkaline Phosphatase Troponin I High Sens 70.5 H* D Total Protein Albumin Lipase Urine Color Urine Appearance Urine pH Ur Specific [place] Urine Protein Urine Glucose (UA) Urine Ketones Urine Blood Urine Nitrite Ur Leukocyte Esterase Urine RBC Urine WBC Ur Squamous Epith Cells Urine Bacteria Hyaline Casts ECG Attestation: I personally reviewed and interpreted this ECG as follows: (Sinus rhythm with a sinus arrhythmia no ischemic changes) Prior ECG tracings: available for review Imaging Radiologist's Impressions: Impressions Abdomen/Pelvis CT 08/13/24 16:47 IMPRESSION: There is thickening of the lower right colon and cecum and terminal ileum. The cecum is positioned deep in the pelvis, in the presacral region. Possible etiologies include infection, ischemia, inflammatory bowel disease, and neoplasm. No abscess or free air is demonstrated. There is a small sliding hiatal hernia. There is an indeterminate low attenuating lesion in the anterolateral spleen. Isolated malignancies of the spleen are rare, though possible. More likely, it represents a pseudocyst or proteinaceous cyst. Consider 3-6 month follow-up. Moderate atherosclerotic disease. Fleischner guidelines were followed. Electronically signed by: Jameson Castro MD 08/13/2024 05:26 PM EDT RP Assessment and Plan (1) Intractable nausea: Status: Acute Plan Patient is a 74-year-old female with history of hypertension, CAD, PCI with stents 2018, PVD, 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 JUANA on iron infusions weekly, Graves disease, HFpEF (grade 1 diastolic dysfunction), mild MVR, DMII, osteoarthritis, GI bleed, chronic kidney disease stage 3 is being admitted for intractable nausea with notable increase in patient's troponin level. Patient has underlying chronic kidney disease for patient is currently at baseline. Patient is requesting to speak to her slate mixer as her Lasix was recently increased to 80 mg daily and patient has not been able to tolerate that dose. Intractable nausea -Antiemetics p.r.n. to include Zofran and Reglan, QTC normal -GI consulted -Incidental splenic lesion on CT scan -Differentials include infection, inflammation versus neoplasm - patient underwent colonoscopy at [facility] in April of 2024 and was told she has diverticulosis -no leukocytosis, fever abdominal pain: Lactate 1.6, No indication for antibiotics at this time -Stool for occult ordered noting anemia, likely secondary to renal disease -Clear diet allowed as patient is currently pain-free and not having any nausea Hypertensive urgency -Blood pressure 210/100 on arrival, patient received oral hydralazine -IV hydralazine p.r.n. -Await med rec review and resume patient's usual meds -Low-salt diet, currently on clears Elevated troponin -Troponins 43.1 then 70.5, trend troponin -Telemetry -Last echo 02/06/2024 -BNP pending HFrEF, grade 1 diastolic failure -BNP pending -Daily weights -Low Na diet -Pt recently increased on her lasix to 40 BID, will hold for now HX DVT/PE -Continue eliquis -Pt has upcoming appt with [facility] as outpatient Anemia acute on chronic, JUANA -H/H stable, 8.0/28.2, no indication for transfusion -Patient did not receive her weekly iron infusion this week due to placing mother and hospice -Monitor H&H Chronic kidney disease stage 3 B -Renal function appears to be baseline -Patient requesting to speak to her slate mixer inpatient, consultation placed -Holding Lasix, current dose 40 mg b.i.d. -Patient has received IV fluids in the emergency department and does not have any indication of volume overload or hypoxia -UA with reflex pending -Avoid hypotension -Avoid nephrotoxic meds including NSAIDs Hx of Grave's disease -Will check thyroid function -Treat if indicated -Pt otherwise asymptomatic R knee OA -patient takes oxycodone usually 10 mg as needed q.6 but has reduced the dose to 5 -Tylenol PRN -patient was recently prescribed prednisone daily for 10 days but has been only using intermittently, will not order steroids at this time DVT prophylaxis: Eliquis PPI prophylaxis: Omeprazole Med rec pending Full Code status Quality Stroke Does the patient have a stroke diagnosis?: No Reason for No Anti-thrombotic by Day Two: N/A - Med Ordered VTE Prior VTE?: No VTE Risk Level:: Medical - moderate - high VTE Device Contraindication: N/A - Device Ordered VTE Drug Contraindication: N/A - Med Ordered
--- NOTE | 2024-08-13 22:48 | PHA.MEDREC ---
Addendum entered by Marj Mina RPh 08/13/24 22:55: REVIEWED BY [facility] Original Note: Pharmacy Consult ? Medication Reconciliation Pharmacy has completed the medication reconciliation. Spoke with pt and she confirmed her medications. Pt confirmed she still has Clonidine 0.1mg tabs at home she takes TID; claims shows that has not been filled since 02/23 for 90 days. Pt also confirmed she is now taking her Furosemide 20mg tab 1 tab TID and states her Dr changed that recently. Pt confirmed she is taking her Metoprolol 50mg tab now taking 2 tabs (100mg) stating her Dr increased that in the last few weeks. Pt confirmed she still has Oxycodone 10mg tabs at home she takes as needed.
[2024-08-13 23:07] LABS: Magnesium 2.5 mg/dL (1.6-2.6)
[2024-08-13 23:21] LABS: Free T4 (Free Thyroxine) 1.01 ng/dL (0.71-1.85); Thyroid Stimulating Hormone 1.07 uIU/mL (0.32-4.0)
[2024-08-14] VITALS (7 sets, daily range): BP systolic 150–207; BP diastolic 60–87; PULSE 66–80; RESP 18–20; TEMP 36.8–37.4; O2SAT 91–97; BMI 24.0
[2024-08-14] MEDS: 0.9 % Sodium Chloride Flush 3 ML SYRINGE IVFLUSH ×4 (00:48→20:29)
[2024-08-14 01:52] LABS: Troponin-I High Sensitivity 85.4 ng/L (<3.5-17.0)
[2024-08-14 06:03] LABS: MANUAL DIFF FLAG NO
[2024-08-14 06:22] LABS: Hematocrit 26.6 % (37.0-47.0); Hemoglobin 7.7 g/dl (12.0-16.0); Imm Gran Abs Auto 0.02 X10*3/uL (0.00-0.03); Imm Gran Pct Auto 0.3 % (0.0-0.4); Lymphocytes Absolute Auto 0.9 X10*3/uL (1.2-4.9); Mean Corpuscular HGB Conc 28.9 g/dl (31.0-35.0); Mean Corpuscular Hemoglobin 26.7 pg (27.0-33.0); Mean Corpuscular Volume 92.4 fL (80.0-98.0); NRBC Abs Auto 0.020 X10*3/uL (0.0-0.012); NRBC Pct Auto 0.3 /100WBC (0.0-0.2); Platelet Count 451 X10*3/uL (160-400); Red Blood Count 2.88 X10*6/uL (4.20-5.50); White Blood Count 6.8 X10*3/uL (4.8-10.8)
[2024-08-14 06:34] LABS: Alanine Aminotransferase < 6 U/L (0-31); Albumin Level 2.9 g/dL (3.5-5.0); Alkaline Phosphatase 92 U/L (39-117); Anion Gap 15 (12-20); Aspartate Amino Transferase 20 U/L (5-31); Blood Urea Nitrogen 53 mg/dL (9-16); Calcium 9.6 mg/dL (8.4-10.2); Carbon Dioxide 24 mmol/L (22-29); Chloride 113 mmol/L (96-108); Creatinine Clr Calc Pharmacy 21.3; Estimated Glomerular Filt Rate 20; Potassium 4.4 mmol/L (3.3-5.1); Sodium 148 mmol/L (135-145); Total Protein 6.7 g/dL (6.5-8.0)
[2024-08-14 07:04] LABS: Hemoglobin A1C 78.9983 umol/L; Total Hemoglobin (HGBA1C) 2122.3338 umol/L
--- NOTE | 2024-08-14 07:37 | P.CNGI_ITS ---
History of Present Illness Data of Consult Service Date: 08/14/24 Requesting physician: Kayla Baron Primary Care Provider: Unknown Physician HPI Reason for consult: intractable vomiting, abn CT scan ? neoplasm 74 YF with hypertension, CAD, PCI with stents 2018, PVD, DVT/PE 2017 on Eliquis, JUANA on iron infusions weekly, diverticulosis, Graves disease, HFpEF (grade 1 diastolic dysfunction), mild MVR, DMII, R knee osteoarthritis, GI bleed, chronic kidney disease stage 3 seen at [facility] ED on 08/13/24 (brought in by ambulance) for nausea that has persisted since early this morning. Patient reported she has decreased appetite and has not been able to vomit and has intermittent epigastric pain. Had a small amount of nonbloody emesis containing some water and form She also notes constipation and has not had a BM x 4 days She does not use marijuana regularly and states she was exposed to marijuana smoke yesterday while waiting at the bus stop. Patient notes she is under increased stress since she recently had to place her mother in hospice after hospitalization in [place]. Patient states similar events happened in 2019 when her sister . She was told she had Graves disease and received treatment. In addition patient underwent a PCI with stent to the coronary artery in 2019 as well. Patient wonders if her symptoms are related to the stress that she is undergoing now as she feels she should be with her mother at this time. Patient did receive 1 dose of Valium in the emergency department with some relief. Patient states she was out in the heat yesterday longer than expected. There is no evidence of heat exhaustion or stroke at this time. Patient was in the emergency department July 31 with evidence of acute anemia and a hemoglobin of 6.5. Patient reports she had a colonoscopy at [facility] and was told nothing was found - records have been requested. EKG sinus rhythm with marked sinus arrhythmia. T-wave inversions no longer evident in inferior and anterior lateral leads when compared to previous EKG. Echo 02/06/2024 grade I (mild) diastolic dysfunction, EF 58%. Patient was seen by Nephrology on 08/06/2024 and received 42588 units of subcutaneous Epogen. Current H and H is 8 and 28.2. Platelets 463K. Patient reports getting an iron infusion 1 week prior. Patient did follow with Hematology and has an upcoming appointment to review need for Eliquis. When patient was 1st diagnosed with PE/DVT she was told that she would have to be on Eliquis for the rest of her lif 08/13/[address] SCAN SHOWED: There is thickening of the lower right colon and cecum and terminal ileum. The cecum is positioned deep in the pelvis, in the presacral region. Possible etiologies include infection, ischemia, inflammatory bowel disease, and neoplasm. No abscess or free air is demonstrated. There is a small sliding hiatal hernia. There is an indeterminate low attenuating lesion in the anterolateral spleen. Isolated malignancies of the spleen are rare, though possible. More likely, it represents a pseudocyst or proteinaceous cyst. Consider 3-6 month follow-up. Moderate atherosclerotic disease. PAST GI HISTORY BY REVIEW OF MEDICAL RECORDS: April of 2024 patient was followed by GI for possible GI bleed and was scheduled for a colonoscopy and VCE placement for 05/21/2024 and procedure was canceled due to inadequate prep. 04/2024 PT PATIENT WAS SEEN BY DR. MCGEE DURING HOSPITALIZATION FOR ACUTE ON CHRONIC ANEMIA: As previously discussed with the pt, recommend urgent EGD/colo for further evaluation for rapidly declining blood counts in the setting of vague abd discomfort, unintentional weight loss and + positive cologuard 3-4 years ago. Plan: - EGD/colo booked tentatively for Sunday - Kindly request cardiology eval for intermittent chest pain and WMA on echo 01/2024 - Hold full dose ASA and eliquis - If needed, IV heparin is ok for anticoagulation to mitigate high VTE risk (to not be started earlier than 05/11) - If pt needs to leave over the weekend, she is aware to cont to hold aspirin and eliquis. CLD and PEG prep sunday. Kindly provide her with prescription. She is also aware to arrange for reliable transport for Sunday in that case. EGD AND COLON SHOWED: Impression: 1. Normal esophagus 2. Normal stomach 3. Duodenal polyp 4. Fair prep 5. Internal hemorrhoids Recommendations:?? * Follow-up path results * No obvious source of GIB noted on this exam * CT enterography for evaluation of small bowel * Consider hemolysis work up * IV iron 200 mg while inpatient. Consider EPO. * Outpatient video capsule endoscopy to be booked * She will also need a repeat colonoscopy within 6 months for adequate screening - not scheduled yet. BIOPSIES SHOWED: A. Duodenum, biopsy: Duodenal mucosa with preserved villi and no specific change. B. Ampulla, biopsy: Duodenal mucosa with preserved villi and focal features consistent with chronic/ non-specific duodenitis. C. Duodenum, polyp: Polypoid chronic/non-specific duodenitis; no adenomatous dysplasia seen Review of Systems 2 Review of Systems: Yes all other systems are reviewed and are negative [facility] Past Medical History Medical History (Updated 08/13/24 @ 22:41 by KATARINA Tovar) Graves disease CAD (coronary artery disease) Osteoarthritis Hx of transfusion of packed red blood cells Diet-controlled diabetes mellitus Pulmonary embolism DVT (deep venous thrombosis) Anemia in chronic kidney disease Hypertension CKD (chronic kidney disease) stage 3, GFR 30-59 ml/min Family History Family History Maternal Grandfather Stomach cancer Surgical History Surgical History Hx of heart artery stent History of partial hysterectomy Social History Social History Household Members: None Housing: Apartment Do you presently have visiting nurse or other home services: No Alcohol intake: never Patient Tobacco Use Status: Former Tobacco user Tobacco use type: Cigarette Smoked in Last 30 Days: No Use of substances other than those prescribed or required for medical reasons: No Currently Displaying Signs/Symptoms of Drug Intoxication Withdrawal: No Have you been hit, kicked, punched, or otherwise hurt by someone within the past year? If so, by whom?: No Do you feel safe in your current relationship?: No Current Relationship Is there a partner from a previous relationship who is making you feel unsafe now?: No Are you made to feel afraid or neglected: No Advance Directives: No Advance Directives Information Provided: Yes Do you have a plan to hurt others: No Plan Recently lost weight without trying: No Nutrition Risks: No Nutritional Risk Patient : No : No Poor oral hygiene: No Current occupational status: retired Travel History Ebola Risk: Travel/Contact With Anyone From Affected Area/s: No Has Patient Experienced Ebola Symptoms: No Meds Allergies Allergy/AdvReac Type Severity Reaction Status Date / Time codeine Allergy Intermediate Nausea Verified 08/13/24 11:59 latex Allergy Intermediate Rash Verified 08/13/24 11:59 hydrochlorothiazide Allergy Unknown Unknown Verified 08/13/24 11:59 morphine Allergy Unknown Nausea Verified 08/13/24 11:59 SHAYY Inhibitors AdvReac Unknown Unknown Verified 08/13/24 11:59 Active Medications: Current Medications Acetaminophen (Acetaminophen 325 Mg Tablet) 650 mg PO Q6H PRN PRN Reason: Pain, Mild 1-3,fever,headache Albuterol/Ipratropium (Albuterol/Iprat 2.5/0.5mg 3 Ml Ampul.Neb) 3 ml INHALE Q4H PRN PRN Reason: Shortness of Breath/Wheezing Apixaban (Apixaban 2.5 Mg Tablet) 2.5 mg PO BID [facility] Ascorbic Acid (Ascorbic Acid 500 Mg Tablet) 1,000 mg PO MOFR [facility] Aspirin (Aspirin 81 Mg Tab.Chew) 81 mg PO DAILY [facility] Calcium Carbonate (Calcium Carbonate 750 Mg Tab.Chew) 750 mg PO Q4H PRN PRN Reason: Heartburn Clonidine HCl (Clonidine Hcl 0.1 Mg Tablet) 0.1 mg PO TID [facility]; Protocol Last Admin: 08/14/24 00:17 Dose: 0.1 mg Cyanocobalamin (Cyanocobalamin (Vitamin B-12) 500 Mcg Tablet) 1,000 mcg PO DAILY [facility] Isosorbide Mononitrate (Isosorbide Mononitrate 30 Mg Tab.Er.24h) 30 mg PO TID [facility]; Protocol Lorazepam (Lorazepam 0.5 Mg Tablet) 0.5 mg PO Q8H PRN PRN Reason: Anxiety Last Admin: 08/14/24 00:48 Dose: 0.5 mg Magnesium Hydroxide (Milk Of Magnesia 30 Ml Oral.Susp) 30 ml PO DAILY PRN PRN Reason: Constipation Melatonin (Melatonin 3 Mg Tablet) 6 mg PO BEDTIME PRN PRN Reason: Insomnia Last Admin: 08/14/24 00:48 Dose: 6 mg Metoprolol Tartrate (Metoprolol Tartrate 100 Mg Tablet) 100 mg PO BID [facility]; Protocol Ondansetron HCl (Ondansetron Hcl 4 Mg/2 Ml Vial) 4 mg IVPUSH Q8H PRN PRN Reason: Nausea and Vomiting Last Admin: 08/14/24 00:48 Dose: 4 mg Oxycodone HCl (Oxycodone Hcl Immed Release 5 Mg Tablet) 5 mg PO Q6H PRN PRN Reason: Pain, Severe (Pain Scale 7-10) Senna (Sennosides 8.6 Mg Tablet) 17.2 mg PO BEDTIME [facility] Sodium Chloride (0.9 % Sodium Chloride Flush 3 Ml Syringe) 3 ml IVFLUSH QSHIFT [facility] Last Admin: 08/14/24 00:48 Dose: 3 ml Home Medications ?Medication ?Instructions ?Recorded ?Confirmed ?Last Taken ?Type apixaban 2.5 mg tablet (Eliquis) 2.5 mg PO BID 3 08/13/24 08/12/24 History ascorbate calcium (vitamin C) 500 1 g PO MOFR 02/27/24 08/13/24 08/11/24 History mg tablet mecobalamin (vitamin B12) 1,000 1,000 mcg PO DAILY 10/1308/13/24 08/12/24 History mcg chewable tablet acetaminophen 500 mg tablet 1,500 mg PO DAILY PRN Pain 05/08/24 08/13/24 Unknown History clonidine HCl 0.1 mg tablet 0.1 mg PO TID 05/08/2408/12/24 History aspirin 81 mg chewable tablet 1 tab PO DAILY 08/13/24 08/13/24 08/12/24 History furosemide 20 mg tablet 20 mg PO TID 08/13/2408/12/24 History metoprolol tartrate 50 mg tablet 100 mg PO BID 5 08/13/24 08/12/24 History Physical Exam 2 Vital Signs: Vital Signs: Last Vital Signs Temp 98.8 F 08/14/24 03:27 Pulse 66 08/14/24 03:27 Resp 18 08/14/24 03:27 BP 169/82 H 08/14/24 03:27 Pulse Ox 95 08/14/24 03:27 O2 Del Method Room Air 08/14/24 03:27 BMI result Body Mass Index 24.0 Const: General: no acute distress and anxious Nutritional Appearance: a verage body habitus Orientation/consciousness: patient oriented x3 HEENT: Head: Yes normal to inspection Ears: hearing grossly normal bilaterally Eyes: Sclerae: sclerae normal Pupils: Equal, round and reactive pupils present Neck: Neck: Yes normal visual inspection Chest: Chest palpation & inspection: normal inspection of the chest Resp: Effort & Inspection: normal respiratory effort Auscultation: clear to auscultation bilaterally Cardio: Palpation: normal PMI Rate: regular rate Rhythm: regular rhythm Heart sounds: S1 normal heart sound present, S2 normal heart sound present and no murmurs GI: Palpation (GI): Soft to palpation, nontender and No hepatosplenomegaly present Auscultation: normal bowel sounds Rectal Exam - Female: deferred Skin: General skin exam: no rashes or lesions noted Neuro: General: patient oriented x3, gait normal and moves all extremities Cranial nerves: Yes Equal, round and reactive pupils present Psych: Appearance: grossly normal Mental Status: mental status grossly normal Results Labs 08/14/24 05:47 08/14/24 05:47 Labs: Short CBC 08/13/24 08/14/24 Range/Units 12:32 05:47 WBC 6.6 6.8 (4.8-10.8) X10*3/uL Hgb 8.0 L 7.7 L (12.0-16.0) g/dl Hct 28.2 L 26.6 L (37.0-47.0) % Plt Count 463 H D 451 H (160-400) X10*3/uL BMP 08/13/24 08/14/24 12:32 05:47 Sodium 149 H 148 H Potassium 4.2 4.4 Chloride 113 H 113 H Carbon Dioxide 25 24 BUN 60 H 53 H Creatinine 2.36 H 2.36 H Calcium 9.8 D 9.6 Liver Function 08/13/24 08/14/24 Range/Units 12:32 05:47 Total Bilirubin 0.3 0.3 (0.0-1.0) mg/dL Direct Bilirubin 0.2 (0.0-0.5) mg/dL AST 19 20 (5-31) U/L ALT 8 < 6 (0-31) U/L Alkaline Phosphatase 120 H 92 (39-117) U/L Albumin 3.4 L 2.9 L (3.5-5.0) g/dL Urine 08/13/24 Range/Units 13:49 Urine Color Straw Urine Appearance Clear Urine pH 6.0 (5.0-9.0) Ur Specific [place] 1.020 (1.005-1.025) Urine Protein 300 (3+) H (Neg-Trace) mg/dL Urine Glucose (UA) Negative (Negative) mg/dL Assessment and Plan (1) Intractable nausea: Status: Acute (2) GIB (gastrointestinal bleeding): Status: Acute Plan 74 YF with hypertension, CAD, PCI with stents 2019, PVD, DVT/PE 2017 on Eliquis, JUANA on iron infusions weekly, diverticulosis, Graves disease, HFpEF (grade 1 diastolic dysfunction), mild MVR, DMII, R knee osteoarthritis, GI bleed, chronic kidney disease stage 3 seen at [facility] on 08/13/24 (brought in by ambulance) for nausea that has persisted since early this morning. Pt noted to have acute on chronic anemia. No clear source of anemia was detected on recent upper endoscopy and colonoscopy. Patient needs further evaluation with capsule endoscopy to rule out small bowel source of GI blood loss. She needs an upper endoscopy for placement of the capsule since she complains of dysphagia and inability to swallow the capsule RECOMMENDATIONS: 1. Agree with PO PPI and antiemetics 2. Schedule EGD for capsule placement (placed on the add on list for 08/18 if pt is still in the hospital) 3. Hold Eliquis x 3 days for EGD Procedures Date of Service Date of Service: 08/14/24
--- NOTE | 2024-08-14 11:56 | PM.CNNEP ---
History of Present Illness Reason for Consult Consult date: 08/14/24 Chief Complaint Chief complaint: Nausea/abd pain History of Present Illness Narrative: 74 y/o female with hypertension, CAD, PCI with stents 2019, PVD, DVT/PE 2017 on Eliquis, JUANA on iron infusions weekly, diverticulosis, Graves disease, HFpEF (grade 1 diastolic dysfunction), mild MVR, DMII, R knee osteoarthritis, GI bleed, chronic kidney disease stage 3. 08/14 presented with nausea, malaise, intermittent gastric pain, no vomiting/diarrhea. BP 210/100. states mother was recently placed on hospice which has been very distressing to her- states became unwell with distress when her sister was passing years ago. patient's BP was 210/100 on presentation- she had held her lasix as she felt this was causing her symptoms. her renal function remains at baseline. UA with small amount of blood. She states she is feeling somewhat better at bedside. States she is just very tired and wants to rest. reports nausea has improved- reports she has been constipated and no BM yet but has been passing gas. States her swelling has improved- reports this is why lasix was increased on 08/06 denies chest pain, dizziness, shortness of breath, abdominal pain, urinary symptoms, lower extremity edema (reports resolved). Review of Systems Constitutional: Reports fatigue and Reports malaise Cardiovascular: Denies chest pain, Denies leg edema and Denies dyspnea Respiratory: Denies dyspnea Gastrointestinal: Denies abdominal pain, Reports constipation, Denies diarrhea, Reports nausea and Denies vomiting Genitourinary: Denies hematuria, Denies dysuria and Denies flank pain Musculoskeletal: Denies arthralgias, Denies joint swelling and Denies muscle weakness Skin/Breast: Denies rash Endocrine: Reports fatigue [facility] Past Medical History Medical History (Updated 08/13/24 @ 22:41 by KATARINA Tovar) Graves disease CAD (coronary artery disease) Osteoarthritis Hx of transfusion of packed red blood cells Diet-controlled diabetes mellitus Pulmonary embolism DVT (deep venous thrombosis) Anemia in chronic kidney disease Hypertension CKD (chronic kidney disease) stage 3, GFR 30-59 ml/min Family History Family History Maternal Grandfather Stomach cancer Surgical History Surgical History Hx of heart artery stent History of partial hysterectomy Social History Social History Household Members: None Housing: Apartment Do you presently have visiting nurse or other home services: No Alcohol intake: never Patient Tobacco Use Status: Former Tobacco user Tobacco use type: Cigarette Smoked in Last 30 Days: No Use of substances other than those prescribed or required for medical reasons: No Currently Displaying Signs/Symptoms of Drug Intoxication Withdrawal: No Have you been hit, kicked, punched, or otherwise hurt by someone within the past year? If so, by whom?: No Do you feel safe in your current relationship?: No Current Relationship Is there a partner from a previous relationship who is making you feel unsafe now?: No Are you made to feel afraid or neglected: No Advance Directives: No Advance Directives Information Provided: Yes Do you have a plan to hurt others: No Plan Recently lost weight without trying: No Nutrition Risks: No Nutritional Risk Patient : No : No Poor oral hygiene: No Current occupational status: retired Travel History Ebola Risk: Travel/Contact With Anyone From Affected Area/s: No Has Patient Experienced Ebola Symptoms: No Meds Allergies Allergy/AdvReac Type Severity Reaction Status Date / Time codeine Allergy Intermediate Nausea Verified 08/13/24 11:59 latex Allergy Intermediate Rash Verified 08/13/24 11:59 hydrochlorothiazide Allergy Unknown Unknown Verified 08/13/24 11:59 morphine Allergy Unknown Nausea Verified 08/13/24 11:59 SHAYY Inhibitors AdvReac Unknown Unknown Verified 08/13/24 11:59 Active Medications: Current Medications Acetaminophen (Acetaminophen 325 Mg Tablet) 650 mg PO Q6H PRN PRN Reason: Pain, Mild 1-3,fever,headache Albuterol/Ipratropium (Albuterol/Iprat 2.5/0.5mg 3 Ml Ampul.Neb) 3 ml INHALE Q4H PRN PRN Reason: Shortness of Breath/Wheezing Amlodipine Besylate (Amlodipine Besylate 5 Mg Tablet) 5 mg PO DAILY [facility]; Protocol Last Admin: 08/14/24 11:50 Dose: 5 mg Apixaban (Apixaban 2.5 Mg Tablet) 2.5 mg PO BID [facility] Last Admin: 08/14/24 07:46 Dose: 2.5 mg Ascorbic Acid (Ascorbic Acid 500 Mg Tablet) 1,000 mg PO MOFR [facility] Aspirin (Aspirin 81 Mg Tab.Chew) 81 mg PO DAILY [facility] Last Admin: 08/14/24 07:46 Dose: 81 mg Calcium Carbonate (Calcium Carbonate 750 Mg Tab.Chew) 750 mg PO Q4H PRN PRN Reason: Heartburn Clonidine HCl (Clonidine Hcl 0.1 Mg Tablet) 0.1 mg PO TID [facility]; Protocol Last Admin: 08/14/24 07:46 Dose: 0.1 mg Cyanocobalamin (Cyanocobalamin (Vitamin B-12) 500 Mcg Tablet) 1,000 mcg PO DAILY [facility] Last Admin: 08/14/24 07:46 Dose: 1,000 mcg Isosorbide Mononitrate (Isosorbide Mononitrate 30 Mg Tab.Er.24h) 30 mg PO TID [facility]; Protocol Last Admin: 08/14/24 07:46 Dose: 30 mg Lorazepam (Lorazepam 0.5 Mg Tablet) 0.5 mg PO Q8H PRN PRN Reason: Anxiety Last Admin: 08/14/24 00:48 Dose: 0.5 mg Magnesium Hydroxide (Milk Of Magnesia 30 Ml Oral.Susp) 30 ml PO DAILY PRN PRN Reason: Constipation Melatonin (Melatonin 3 Mg Tablet) 6 mg PO BEDTIME PRN PRN Reason: Insomnia Last Admin: 08/14/24 00:48 Dose: 6 mg Metoprolol Tartrate (Metoprolol Tartrate 100 Mg Tablet) 100 mg PO BID [facility]; Protocol Last Admin: 08/14/24 07:46 Dose: 100 mg Ondansetron HCl (Ondansetron Hcl 4 Mg/2 Ml Vial) 4 mg IVPUSH Q8H PRN PRN Reason: Nausea and Vomiting Last Admin: 08/14/24 00:48 Dose: 4 mg Oxycodone HCl (Oxycodone Hcl Immed Release 5 Mg Tablet) 5 mg PO Q6H PRN PRN Reason: Pain, Severe (Pain Scale 7-10) Senna (Sennosides 8.6 Mg Tablet) 17.2 mg PO BEDTIME [facility] Sodium Chloride (0.9 % Sodium Chloride Flush 3 Ml Syringe) 3 ml IVFLUSH QSHIFT [facility] Last Admin: 08/14/24 07:46 Dose: 3 ml Home Medications ?Medication ?Instructions ?Recorded ?Confirmed ?Last Taken ?Type apixaban 2.5 mg tablet (Eliquis) 2.5 mg PO BID 01/30/23 08/13/24 08/12/24 History ascorbate calcium (vitamin C) 500 1 g PO MOFR 02/27/24 08/13/24 08/11/24 History mg tablet mecobalamin (vitamin B12) 1,000 1,000 mcg PO DAILY 02/27/24 08/13/24 08/12/24 History mcg chewable tablet acetaminophen 500 mg tablet 1,500 mg PO DAILY PRN Pain 05/08/24 08/13/24 Unknown History clonidine HCl 0.1 mg tablet 0.1 mg PO TID 05/08/24 08/13/24 08/12/24 History aspirin 81 mg chewable tablet 1 tab PO DAILY 08/13/24 08/13/24 08/12/24 History furosemide 20 mg tablet 20 mg PO TID 08/13/24 08/13/24 08/12/24 History metoprolol tartrate 50 mg tablet 100 mg PO BID 08/13/24 08/13/24 08/12/24 History Physical Exam Vital Signs: Last Vital Signs Temp 98.6 F 08/14/24 07:52 Pulse 80 08/14/24 07:52 Resp 18 08/14/24 07:52 BP 150/60 H 08/14/24 11:50 Pulse Ox 93 08/14/24 07:52 O2 Del Method Room Air 08/14/24 07:52 BMI result Body Mass Index 24.0 Const General: comfortable and no acute distress Resp Effort & Inspection: normal respiratory effort and able to speak in complete sentences Auscultation: clear to auscultation bilaterally Cardio Rate: regular rate Rhythm: regular rhythm Heart sounds: S1 normal heart sound present and S2 normal heart sound present GI Palpation (GI): Soft to palpation and nontender General: Yes no CVA tenderness Back/Spine/Pelvis Back: no CVA tenderness Skin Rashes: no rashes Extrem General: No edema Results Lab Results 08/14/24 05:47 08/14/24 05:47 Lab results: Chemistry 08/13/24 08/14/24 12:32 05:47 Sodium 149 H 148 H Potassium 4.2 4.4 Carbon Dioxide 25 24 BUN 60 H 53 H Creatinine 2.36 H 2.36 H Calcium 9.8 D 9.6 Hematology 08/13/24 08/14/24 12:32 05:47 WBC 6.6 6.8 Hgb 8.0 L 7.7 L Plt Count 463 H D 451 H Urinalysis 08/13/24 13:49 Urine Color Straw Urine Appearance Clear Urine pH 6.0 Ur Specific [place] 1.020 Urine Protein 300 (3+) H Urine Glucose (UA) Negative Urine Ketones Negative Urine Blood Small (1+) H Urine Nitrite Negative Ur Leukocyte Esterase Negative Urine RBC 3-5 H Urine WBC 0-5 Ur Squamous Epith Cells 0-2 Hyaline Casts 0-2 Assessment and Plan (1) Hypertensive urgency: Status: Acute (2) CKD (chronic kidney disease) stage 3, GFR 30-59 ml/min: Qualifiers: Chronic kidney disease stage 3 subtype: stage 3a (GFR 45-59) Qualified Code(s): N18.31 - Chronic kidney disease, stage 3a Status: Acute Plan Hypertensive urgency after holding diuretic due to nausea/malaise patient appears slightly hypovolemic with mild hypernatremia- recommend continue to hold diuretic today, may consider resuming tomorrow if appropriate start amlodipine 5mg daily due to continued elevated blood pressures CKD at baseline avoid nephrotoxic substances Continue supportive care, will continue to follow Discussed with Dr Schumacher Procedures Date of Service Date of Service: 08/14/24
[2024-08-14 13:00] LABS: Troponin-I High Sensitivity 69.7 ng/L (<3.5-17.0)
[2024-08-14 16:55] LABS: Appearance Urine Clear; Glucose Urine UA Negative (Negative); PH 5.0 (5.0-9.0); Specific Gravity - Urine 1.020 (1.005-1.025)
[2024-08-14 17:08] LABS: UMIC TRIGGER UA YES
--- NOTE | 2024-08-14 17:19 | P.PNIM_ITS ---
Subjective Subjective Date of Service: 08/14/24 Interval History: nausea , vomiting, uncontrolled hypertension Review of Systems nausea improving, no vomiting bp also improving Review of Systems: Yes all other systems are reviewed and are negative Physical Exam 2 Vital Signs: Vital Signs: Last Vital Signs Temp 98.6 F 08/14/24 16:00 Pulse 67 08/14/24 16:00 Resp 18 08/14/24 16:00 BP 166/74 H 08/14/24 16:00 Pulse Ox 91 L 08/14/24 16:00 O2 Del Method Room Air 08/14/24 16:00 BMI result Body Mass Index 24.0 Appearance: Alert.? Oriented X3.? cvs: rrr, [id number] . res: clear to auscultation ,no rhonchii or wheezing abd: no rebound or guarding ,nt, bs present. ext pulses present , no cyanosis . neuro: axo3 , nonfocal. Objective Data Active Medications Acetaminophen (Acetaminophen 325 Mg Tablet) 650 mg PO Q6H PRN PRN Reason: Pain, Mild 1-3,fever,headache Albuterol/Ipratropium (Albuterol/Iprat 2.5/0.5mg 3 Ml Ampul.Neb) 3 ml INHALE Q4H PRN PRN Reason: Shortness of Breath/Wheezing Amlodipine Besylate (Amlodipine Besylate 5 Mg Tablet) 5 mg PO DAILY [facility]; Protocol Last Admin: 08/14/24 11:50 Dose: 5 mg Documented By: KELLEE Apixaban (Apixaban 2.5 Mg Tablet) 2.5 mg PO BID [facility] Last Admin: 08/14/24 07:46 Dose: 2.5 mg Documented By: PAOLA Ascorbic Acid (Ascorbic Acid 500 Mg Tablet) 1,000 mg PO [facility] Aspirin (Aspirin 81 Mg Tab.Chew) 81 mg PO DAILY [facility] Last Admin: 08/14/24 07:46 Dose: 81 mg Documented By: PAOLA Calcium Carbonate (Calcium Carbonate 750 Mg Tab.Chew) 750 mg PO Q4H PRN PRN Reason: Heartburn Clonidine HCl (Clonidine Hcl 0.1 Mg Tablet) 0.1 mg PO TID [facility]; Protocol Last Admin: 08/14/24 16:00 Dose: 0.1 mg Documented By: KELLEE Cyanocobalamin (Cyanocobalamin (Vitamin B-12) 500 Mcg Tablet) 1,000 mcg PO DAILY [facility] Last Admin: 08/14/24 07:46 Dose: 1,000 mcg Documented By: PAOLA Isosorbide Mononitrate (Isosorbide Mononitrate 30 Mg Tab.Er.24h) 30 mg PO TID [facility]; Protocol Last Admin: 08/14/24 16:00 Dose: 30 mg Documented By: KELLEE Lorazepam (Lorazepam 0.5 Mg Tablet) 0.5 mg PO Q8H PRN PRN Reason: Anxiety Last Admin: 08/14/24 00:48 Dose: 0.5 mg Documented By: RITA Magnesium Hydroxide (Milk Of Magnesia 30 Ml Oral.Susp) 30 ml PO DAILY PRN PRN Reason: Constipation Melatonin (Melatonin 3 Mg Tablet) 6 mg PO BEDTIME PRN PRN Reason: Insomnia Last Admin: 08/14/24 00:48 Dose: 6 mg Documented By: RITA Metoprolol Tartrate (Metoprolol Tartrate 100 Mg Tablet) 100 mg PO BID [facility]; Protocol Last Admin: 08/14/24 07:46 Dose: 100 mg Documented By: PAOLA Ondansetron HCl (Ondansetron Hcl 4 Mg/2 Ml Vial) 4 mg IVPUSH Q8H PRN PRN Reason: Nausea and Vomiting Last Admin: 08/14/24 16:00 Dose: 4 mg Documented By: KELLEE Oxycodone HCl (Oxycodone Hcl Immed Release 5 Mg Tablet) 5 mg PO Q6H PRN PRN Reason: Pain, Severe (Pain Scale 7-10) Senna (Sennosides 8.6 Mg Tablet) 17.2 mg PO BEDTIME [facility] Sodium Chloride (0.9 % Sodium Chloride Flush 3 Ml Syringe) 3 ml IVFLUSH QSHIFT [facility] Last Admin: 08/14/24 16:06 Dose: 3 ml Documented By: KELLEE Labs 08/14/24 05:47 08/14/24 05:47 Labs: Laboratory Results - last 24 hr 08/13/24 08/13/24 08/14/24 19:55 22:39 01:09 MCV MCH MCHC RDW Plt Count MPV Immature Gran % (Auto) Neut % (Auto) Lymph % (Auto) [place] % (Auto) Eos % (Auto) Baso % (Auto) Lymph # (Auto) [place] # (Auto) Eos # (Auto) Baso # (Auto) Abs Immat Gran (auto) Absolute Neuts (auto) Absolute Nucleated RBC Nucleated RBC % (auto) Anion Gap Estim Creat Clear Calc Estimated GFR Random Glucose Estimat Average Glucose Hemoglobin A1c % Lactic Acid 1.6 Calcium Magnesium 2.5 Total Bilirubin AST ALT Alkaline Phosphatase Troponin I High Sens 70.5 H* D 85.4 H* Total Protein Albumin TSH 1.07 Free T4 1.01 Urine Color Urine Appearance Urine pH Ur Specific [place] Urine Protein Urine Glucose (UA) Urine Ketones Urine Blood Urine Nitrite Ur Leukocyte Esterase Urine RBC Urine WBC Ur Squamous Epith Cells Urine Bacteria Hyaline Casts 08/14/24 08/14/24 08/14/24 05:47 12:11 16:36 MCV 92.4 MCH 26.7 L MCHC 28.9 L RDW 19.3 H Plt Count 451 H MPV 9.3 L Immature Gran % (Auto) 0.3 Neut % (Auto) 77.0 H Lymph % (Auto) 12.6 L [place] % (Auto) 9.4 Eos % (Auto) 0.3 Baso % (Auto) 0.4 Lymph # (Auto) 0.9 L [place] # (Auto) 0.6 Eos # (Auto) 0.0 Baso # (Auto) 0.0 Abs Immat Gran (auto) 0.02 Absolute Neuts (auto) 5.3 Absolute Nucleated RBC 0.020 H Nucleated RBC % (auto) 0.3 H Anion Gap 15 Estim Creat Clear Calc 21.3 Estimated GFR 20 Random Glucose 126 H Estimat Average Glucose 114 Hemoglobin A1c % 5.6 Lactic Acid Calcium 9.6 Magnesium Total Bilirubin 0.3 AST 20 ALT < 6 Alkaline Phosphatase 92 Troponin I High Sens 69.7 H* Total Protein 6.7 Albumin 2.9 L TSH Free T4 Urine Color Yellow Urine Appearance Clear Urine pH 5.0 Ur Specific [place] 1.020 Urine Protein >=1000 (4+) H Urine Glucose (UA) Negative Urine Ketones Negative Urine Blood Negative Urine Nitrite Negative Ur Leukocyte Esterase Negative Urine RBC 0-2 Urine WBC 0-5 Ur Squamous Epith Cells 3-5 Urine Bacteria None Seen Hyaline Casts 11-20 Assessment and Plan (1) Hypertension: Status: Acute (2) CKD (chronic kidney disease) stage 3, GFR 30-59 ml/min: Status: Acute Assessment and Plan: 74-year-old female with history of hypertension, CAD, PCI with stents 2019, PVD, 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 JUANA on iron infusions weekly, Graves disease, HFpEF (grade 1 diastolic dysfunction), mild MVR, DMII, osteoarthritis, GI bleed, chronic kidney disease stage 3 is being admitted for intractable nausea with notable increase in patient's troponin level. Patient has underlying chronic kidney disease for patient is currently at baseline. Patient is requesting to speak to her cosmetologist apprentice as her Lasix was recently increased to 80 mg daily and patient has not been able to tolerate that dose. Intractable nausea Antiemetics p.r.n. to include Zofran and Reglan, QTC normal ct abomen :Incidental splenic lesion on CT scan,Differentials include infection, inflammation versus neoplasm - patient underwent colonoscopy at [facility] in April of 2024 and was told she has diverticulosis.-no leukocytosis, fever abdominal pain, normal Lactate 1.6 Stool for occult ordered noting anemia, likely secondary to renal disease plan: clear liquid diet,Gi eval pending Episode of bradycardia heart rate is in 30s for brief moment Patient is asymptomatic Hold metoprolol tsh noramal Hypertensive uncontrolled: Low-salt diet, currently on clears Continue amlodipine, Imdur, clonidine, hold metoprolol currently because of bradycardia Elevated troponin Troponins flat(likely related to uncontrolled htn). Last echo 02/06/2024,[id number] had episode of bradycardia plan: hold metoprolol cardiology consult -bardycardia ,elevated trop,uncontrolled htn HFrEF, grade 1 diastolic failure -BNP pending -Daily weights -Low Na diet -Pt recently increased on her lasix to 40 BID, will hold for now HX DVT/PE -Continue eliquis -Pt has upcoming appt with HEME as outpatient Anemia acute on chronic, JUANA -H/H stable, 8.0/28.2, no indication for transfusion -Patient did not receive her weekly iron infusion this week due to placing mother and hospice -Monitor H&H Chronic kidney disease stage 3 B-Renal function appears to be baseline Holding Lasix, current dose 40 mg b.i.d. Patient has received IV fluids in the emergency department and does not have any indication of volume overload or hypoxia UA with significant proteinuria plan: Avoid hypotension,Avoid nephrotoxic meds including NSAIDs nephrology eval. Hx of Grave's disease tsh normal Pt otherwise asymptomatic R knee OA patient takes oxycodone usually 10 mg as needed q.6 but has reduced the dose to 5,Tylenol PRN DVT prophylaxis: Eliquis. PPI prophylaxis: Omeprazole ongoing need: Persistent nausea , abdominal abdominal CT, uncontrolled hypotension, bradycardia-need tele monitoring, renal function electrolyte monitoring, unable to take p.o. yet Quality Stroke Does the patient have a stroke diagnosis?: No Reason for No Anti-thrombotic by Day Two: N/A - Med Ordered VTE Prior VTE?: No VTE Risk Level:: Medical - moderate - high VTE Device Contraindication: N/A - Device Ordered VTE Drug Contraindication: N/A - Med Ordered
[2024-08-14] MEDS: Albumin Human 25 % 50 ML 100 ML IV (18:22)
[2024-08-15 04:00] VITALS: BP 173/81; PULSE 70; RESP 20; TEMP 36.7; O2SAT 96
[2024-08-15 06:21] LABS: Hematocrit 25.8 % (37.0-47.0); Hemoglobin 7.5 g/dl (12.0-16.0)
[2024-08-15 06:58] LABS: Anion Gap 16 (12-20); Blood Urea Nitrogen 52 mg/dL (9-16); Calcium 9.4 mg/dL (8.4-10.2); Carbon Dioxide 24 mmol/L (22-29); Chloride 109 mmol/L (96-108); Creatinine Clr Calc Pharmacy 19.6; Estimated Glomerular Filt Rate 18; Potassium 4.6 mmol/L (3.3-5.1); Sodium 144 mmol/L (135-145)
[2024-08-15 07:04] VITALS: BP 178/60; PULSE 73; RESP 18; TEMP 36.3; O2SAT 96
--- NOTE | 2024-08-15 09:05 | P.PNNP_ITS ---
Subjective Subjective Date of Service: 08/15/24 Interval history: following for nausea and uncontrolled hypertension. Pt with CKD3 at baseline, pt of Dr Boyer. she states she continues to have some mild nausea today. Also ongoing fatigue. Ongoing distress over personal situation at home- mother is on hospice. Denies other concerns/complaints today. Physical Exam 2 Vital Signs: Vital Signs: Last Vital Signs Temp 97.3 F 08/15/24 07:04 Pulse 73 08/15/24 07:04 Resp 18 08/15/24 07:04 BP 178/60 H 08/15/24 07:04 Pulse Ox 96 08/15/24 07:04 O2 Del Method Room Air 08/15/24 07:04 BMI result Body Mass Index 24.0 Const: General: comfortable and no acute distress Resp: Effort & Inspection: normal respiratory effort and able to speak in complete sentences Auscultation: clear to auscultation bilaterally Cardio: Rate: regular rate Rhythm: regular rhythm Heart sounds: S1 normal heart sound present and S2 normal heart sound present GI: Palpation (GI): Soft to palpation and nontender : General: Yes no CVA tenderness Back/Spine/Pelvis: Back: no CVA tenderness Skin: Rashes: no rashes Extrem: General: Yes edema (+1 BLE edema, pitting) Objective Data Labs 08/15/24 05:41 08/15/24 05:41 Labs: Laboratory Results - last 24 hr 08/14/24 08/14/24 08/14/24 12:11 16:36 18:30 Hgb Hct Sodium Potassium Chloride Carbon Dioxide Anion Gap BUN Creatinine Estim Creat Clear Calc Estimated GFR Random Glucose Calcium Troponin I High Sens 69.7 H* Urine Color Yellow Urine Appearance Clear Urine pH 5.0 Ur Specific [place] 1.020 Urine Protein >=1000 (4+) H Urine Glucose (UA) Negative Urine Ketones Negative Urine Blood Negative Urine Nitrite Negative Ur Leukocyte Esterase Negative Urine RBC 0-2 Urine WBC 0-5 Ur Squamous Epith Cells 3-5 Urine Bacteria None Seen Hyaline Casts 11-20 Respiratory Panel Garcia See Note Adenovirus (Rapid PCR) Not Detected B.pert (TEM-PCR) Not Detected B.parapertussis DNA PCR Not Detected C. pneumoniae DNA (PCR) Not Detected Coronavirus OC43 (PCR) Not Detected Coronavirus HKU1 (PCR) Not Detected Coronavirus 229E (PCR) Not Detected Coronavirus NL63 (PCR) Not Detected Human Metapneumovir PCR Not Detected Influenza A (RT-PCR) Not Detected Influenza A (H1) PCR Not Detected Influ A (H1/) PCR Not Detected Influenza A (H3) PCR Not Detected Influenza B (RT-PCR) Not Detected M. pneumoniae (PCR) Not Detected Parainfluenza 1 (PCR) Not Detected Parainfluenza 2 (PCR) Not Detected Parainfluenza 3 (PCR) Not Detected Parainfluenza 4 (PCR) Not Detected RSV (PCR) Not Detected Entero/Rhino (PCR) Not Detected SARS-CoV-2 RNA (RT-PCR) Not Detected 08/15/24 05:41 Hgb 7.5 L Hct 25.8 L Sodium 144 Potassium 4.6 Chloride 109 H Carbon Dioxide 24 Anion Gap 16 BUN 52 H Creatinine 2.57 H Estim Creat Clear Calc 19.6 Estimated GFR 18 Random Glucose 110 Calcium 9.4 Troponin I High Sens Urine Color Urine Appearance Urine pH Ur Specific [place] Urine Protein Urine Glucose (UA) Urine Ketones Urine Blood Urine Nitrite Ur Leukocyte Esterase Urine RBC Urine WBC Ur Squamous Epith Cells Urine Bacteria Hyaline Casts Respiratory Panel Garcia Adenovirus (Rapid PCR) B.pert (TEM-PCR) B.parapertussis DNA PCR C. pneumoniae DNA (PCR) Coronavirus OC43 (PCR) Coronavirus HKU1 (PCR) Coronavirus 229E (PCR) Coronavirus NL63 (PCR) Human Metapneumovir PCR Influenza A (RT-PCR) Influenza A (H1) PCR Influ A (H1/09) PCR Influenza A (H3) PCR Influenza B (RT-PCR) M. pneumoniae (PCR) Parainfluenza 1 (PCR) Parainfluenza 2 (PCR) Parainfluenza 3 (PCR) Parainfluenza 4 (PCR) RSV (PCR) Entero/Rhino (PCR) SARS-CoV-2 RNA (RT-PCR) Procedures Date of Service Date of Service: 08/15/24 Assessment & Plan Assessment and plan (1) Hypertension: Status: Acute (2) CKD (chronic kidney disease) stage 3, GFR 30-59 ml/min: Status: Acute Plan Hypertensive urgency after holding diuretic due to nausea/malaise patient has coronary artery disease and heart failure, developing LE edema today patient declines re-starting furosemide at this time- will need to consider re- starting in the future as she tends to get fluid overloaded with CAD and HF stop metoprolol, start carvedilol 25mg BID, continue clonidine 0.1mg TID stop isosorbide 30mg TID, start isosoribide 60mg daily today- may increase to 90mg tomorrow if blood pressures continue to be elevated may also consider switching amlodipine to diltiazem if blood pressures if heart rate allows if increased isosorbide does not adequately control blood pressure Will follow up with patient in our outpatient office next week for continued monitoring and management CKD remains at baseline avoid nephrotoxic substances Continue supportive care Discussed with Dr Boyer Time Spent With Patient Time: Total time managing care of this patient today ____ minutes. Progress Note: Quality Stroke Does the patient have a stroke diagnosis?: No Reason for No Anti-thrombotic by Day Two: N/A - Med Ordered
[2024-08-15 10:27] LABS: Chlamydia pneumoniae PCR Not Detected (Not Detect.); Coronavirus 229E PCR Not Detected (Not Detect.); Coronavirus HKU1 PCR Not Detected (Not Detect.); Coronavirus NL63 PCR Not Detected (Not Detect.); Coronavirus OC43 PCR Not Detected (Not Detect.); RSV PCR Not Detected (Not Detect.); Rhino/Enterovirus PCR Not Detected (Not Detect.)
[2024-08-15 10:28] LABS: Influenza A H1 PCR Not Detected (Not Detect.); Influenza A H1-2009 PCR Not Detected (Not Detect.); Influenza A H3 PCR Not Detected (Not Detect.); SARS-CoV-2 PCR Not Detected (Not Detect.)
--- NOTE | 2024-08-15 10:34 | MHC.CM.PN ---
Addendum entered by Shana Lyon 08/15/24 10:36: CORRECTION: TRANSPORT WILL BE RIDE VS LYFT Original Note: PT REPORTS SHE NOW LIVES ALONE SHE WAS CARING FOR HER MOTHER, HOWEVER SHE IS NOW [facility] PT SAYS SHE USES A ROLLATOR AND IS INDEPENDENT WITH ALL CARE SHE REPORTS SHE HAS NO ONE TO NAME A HCP PCP: CHET CHEUNG IMM DELIVERED DCP: HOME ? [facility]NA RIDE VS SHUTTLE
--- NOTE | 2024-08-15 13:38 | PM.PSYCN ---
History of Present Illness Date of Service: 08/15/2024 Chief Complaint: Nausea/abd pain Requesting physician: Xi Ward Discussed with referring provider: Yes Sources of Information: patient interviewed, chart reviewed and crisis/core team assessment reviewed HPI Narrative: Mrs. Easton is a 74 year-old woman who self presented to [facility] due to increase nausea, abdominal pain. She was medically admitted due to hypertensive crisis, SBP >230. She also has chronic anemia and needs transfusion secondary to CKD, although consult to GI has been placed as well. Psychiatry has been asked to see Ms. Easton due to depression. Pt seen in her room. She initially was upset after I introduced myself, stating I asked to speak with a Pawn Shop Keeper, I'm not crazy. Pt eventually was receptive as I explained her attending was concern as she is going through difficult time with her mother. Pt explained that mother is currently at another hospital on comfort measures only and pt has been told she may pass away anytime now. Pt is concern that she has been caring for her mother and is very saddened that she is not able to be there for her mother. She expresses her frustration about other hospital telling her that her mother will not be alone when she passes away but she has called and check and her mother has been in the room alone. She asks if she is stable medically, that she is discharge today so she can go and be with her mother before she passes away. She reports she has limited support from family and friends. [facility] Medical History (Updated 08/18/24 @ 10:57 by Isa Awan NP) Graves disease CAD (coronary artery disease) Osteoarthritis Hx of transfusion of packed red blood cells Diet-controlled diabetes mellitus Pulmonary embolism DVT (deep venous thrombosis) Anemia in chronic kidney disease Hypertension CKD (chronic kidney disease) stage 3, GFR 30-59 ml/min Surgical History Hx of heart artery stent History of partial hysterectomy Diagnostics Vital Signs (24Hr): Vital Signs - 24 hr 08/14/24 16:00 08/14/24 16:00 08/14/24 19:56 Temperature 98.6 F 98.2 F Pulse Rate 67 67 Respiratory Rate 18 18 Blood Pressure 166/74 H 166/74 H 150/68 H Pulse Oximetry 91 L 94 Oxygen Delivery Method Room Air Room Air 08/15/24 04:00 08/15/24 07:04 Temperature 98.0 F 97.3 F Pulse Rate 70 73 Respiratory Rate 20 18 Blood Pressure 173/81 H 178/60 H Pulse Oximetry 96 96 Oxygen Delivery Method Room Air Room Air BMI result Body Mass Index 24.0 Labs 08/18/24 05:31 08/18/24 05:31 Labs: Laboratory Results - last 48 hr 08/13/24 08/13/24 08/13/24 13:49 16:22 19:55 WBC RBC Hgb Hct MCV MCH MCHC RDW Plt Count MPV Immature Gran % (Auto) Neut % (Auto) Lymph % (Auto) [place] % (Auto) Eos % (Auto) Baso % (Auto) Lymph # (Auto) [place] # (Auto) Eos # (Auto) Baso # (Auto) Abs Immat Gran (auto) Absolute Neuts (auto) Absolute Nucleated RBC Nucleated RBC % (auto) Sodium Potassium Chloride Carbon Dioxide Anion Gap BUN Creatinine Estim Creat Clear Calc Estimated GFR Random Glucose Estimat Average Glucose Hemoglobin A1c % Lactic Acid Calcium Magnesium 2.5 Total Bilirubin AST ALT Alkaline Phosphatase Troponin I High Sens 43.1 H D 70.5 H* D Total Protein Albumin TSH 1.07 Free T4 1.01 Urine Color Straw Urine Appearance Clear Urine pH 6.0 Ur Specific [place] 1.020 Urine Protein 300 (3+) H Urine Glucose (UA) Negative Urine Ketones Negative Urine Blood Small (1+) H Urine Nitrite Negative Ur Leukocyte Esterase Negative Urine RBC 3-5 H Urine WBC 0-5 Ur Squamous Epith Cells 0-2 Urine Bacteria None Seen Hyaline Casts 0-2 Respiratory Panel Garcia Adenovirus (Rapid PCR) B.pert (TEM-PCR) B.parapertussis DNA PCR C. pneumoniae DNA (PCR) Coronavirus OC43 (PCR) Coronavirus HKU1 (PCR) Coronavirus 229E (PCR) Coronavirus NL63 (PCR) Human Metapneumovir PCR Influenza A (RT-PCR) Influenza A (H1) PCR Influ A (H1/09) PCR Influenza A (H3) PCR Influenza B (RT-PCR) M. pneumoniae (PCR) Parainfluenza 1 (PCR) Parainfluenza 2 (PCR) Parainfluenza 3 (PCR) Parainfluenza 4 (PCR) RSV (PCR) Entero/Rhino (PCR) SARS-CoV-2 RNA (RT-PCR) 08/13/24 08/14/24 08/14/24 22:39 01:09 05:47 WBC 6.8 RBC 2.88 L Hgb 7.7 L Hct 26.6 L MCV 92.4 MCH 26.7 L MCHC 28.9 L RDW 19.3 H Plt Count 451 H MPV 9.3 L Immature Gran % (Auto) 0.3 Neut % (Auto) 77.0 H Lymph % (Auto) 12.6 L Sterling % (Auto) 9.4 Eos % (Auto) 0.3 Baso % (Auto) 0.4 Lymph # (Auto) 0.9 L [place] # (Auto) 0.6 Eos # (Auto) 0.0 Baso # (Auto) 0.0 Abs Immat Gran (auto) 0.02 Absolute Neuts (auto) 5.3 Absolute Nucleated RBC 0.020 H Nucleated RBC % (auto) 0.3 H Sodium 148 H Potassium 4.4 Chloride 113 H Carbon Dioxide 24 Anion Gap 15 BUN 53 H Creatinine 2.36 H Estim Creat Clear Calc 21.3 Estimated GFR 20 Random Glucose 126 H Estimat Average Glucose 114 Hemoglobin A1c % 5.6 Lactic Acid 1.6 Calcium 9.6 Magnesium Total Bilirubin 0.3 AST 20 ALT < 6 Alkaline Phosphatase 92 Troponin I High Sens 85.4 H* Total Protein 6.7 Albumin 2.9 L TSH Free T4 Urine Color Urine Appearance Urine pH Ur Specific [place] Urine Protein Urine Glucose (UA) Urine Ketones Urine Blood Urine Nitrite Ur Leukocyte Esterase Urine RBC Urine WBC Ur Squamous Epith Cells Urine Bacteria Hyaline Casts Respiratory Panel Garcia Adenovirus (Rapid PCR) B.pert (TEM-PCR) B.parapertussis DNA PCR C. pneumoniae DNA (PCR) Coronavirus OC43 (PCR) Coronavirus HKU1 (PCR) Coronavirus 229E (PCR) Coronavirus NL63 (PCR) Human Metapneumovir PCR Influenza A (RT-PCR) Influenza A (H1) PCR Influ A () PCR Influenza A (H3) PCR Influenza B (RT-PCR) M. pneumoniae (PCR) Parainfluenza 1 (PCR) Parainfluenza 2 (PCR) Parainfluenza 3 (PCR) Parainfluenza 4 (PCR) RSV (PCR) Entero/Rhino (PCR) SARS-CoV-2 RNA (RT-PCR) 08/14/24 08/14/24 08/14/24 12:11 16:36 18:30 WBC RBC Hgb Hct MCV MCH MCHC RDW Plt Count MPV Immature Gran % (Auto) Neut % (Auto) Lymph % (Auto) Sterling % (Auto) Eos % (Auto) Baso % (Auto) Lymph # (Auto) [place] # (Auto) Eos # (Auto) Baso # (Auto) Abs Immat Gran (auto) Absolute Neuts (auto) Absolute Nucleated RBC Nucleated RBC % (auto) Sodium Potassium Chloride Carbon Dioxide Anion Gap BUN Creatinine Estim Creat Clear Calc Estimated GFR Random Glucose Estimat Average Glucose Hemoglobin A1c % Lactic Acid Calcium Magnesium Total Bilirubin AST ALT Alkaline Phosphatase Troponin I High Sens 69.7 H* Total Protein Albumin TSH Free T4 Urine Color Yellow Urine Appearance Clear Urine pH 5.0 Ur Specific [place] 1.020 Urine Protein >=1000 (4+) H Urine Glucose (UA) Negative Urine Ketones Negative Urine Blood Negative Urine Nitrite Negative Ur Leukocyte Esterase Negative Urine RBC 0-2 Urine WBC 0-5 Ur Squamous Epith Cells 3-5 Urine Bacteria None Seen Hyaline Casts 11-20 Respiratory Panel Garcia See Note Adenovirus (Rapid PCR) Not Detected B.pert (TEM-PCR) Not Detected B.parapertussis DNA PCR Not Detected C. pneumoniae DNA (PCR) Not Detected Coronavirus OC43 (PCR) Not Detected Coronavirus HKU1 (PCR) Not Detected Coronavirus 229E (PCR) Not Detected Coronavirus NL63 (PCR) Not Detected Human Metapneumovir PCR Not Detected Influenza A (RT-PCR) Not Detected Influenza A (H1) PCR Not Detected Influ A (H1/09) PCR Not Detected Influenza A (H3) PCR Not Detected Influenza B (RT-PCR) Not Detected M. pneumoniae (PCR) Not Detected Parainfluenza 1 (PCR) Not Detected Parainfluenza 2 (PCR) Not Detected Parainfluenza 3 (PCR) Not Detected Parainfluenza 4 (PCR) Not Detected RSV (PCR) Not Detected Entero/Rhino (PCR) Not Detected SARS-CoV-2 RNA (RT-PCR) Not Detected 08/15/24 05:41 WBC RBC Hgb 7.5 L Hct 25.8 L MCV MCH MCHC RDW Plt Count MPV Immature Gran % (Auto) Neut % (Auto) Lymph % (Auto) [place] % (Auto) Eos % (Auto) Baso % (Auto) Lymph # (Auto) [place] # (Auto) Eos # (Auto) Baso # (Auto) Abs Immat Gran (auto) Absolute Neuts (auto) Absolute Nucleated RBC Nucleated RBC % (auto) Sodium 144 Potassium 4.6 Chloride 109 H Carbon Dioxide 24 Anion Gap 16 BUN 52 H Creatinine 2.57 H Estim Creat Clear Calc 19.6 Estimated GFR 18 Random Glucose 110 Estimat Average Glucose Hemoglobin A1c % Lactic Acid Calcium 9.4 Magnesium Total Bilirubin AST ALT Alkaline Phosphatase Troponin I High Sens Total Protein Albumin TSH Free T4 Urine Color Urine Appearance Urine pH Ur Specific [place] Urine Protein Urine Glucose (UA) Urine Ketones Urine Blood Urine Nitrite Ur Leukocyte Esterase Urine RBC Urine WBC Ur Squamous Epith Cells Urine Bacteria Hyaline Casts Respiratory Panel Garcia Adenovirus (Rapid PCR) B.pert (TEM-PCR) B.parapertussis DNA PCR C. pneumoniae DNA (PCR) Coronavirus OC43 (PCR) Coronavirus HKU1 (PCR) Coronavirus 229E (PCR) Coronavirus NL63 (PCR) Human Metapneumovir PCR Influenza A (RT-PCR) Influenza A (H1) PCR Influ A (H1/09) PCR Influenza A (H3) PCR Influenza B (RT-PCR) M. pneumoniae (PCR) Parainfluenza 1 (PCR) Parainfluenza 2 (PCR) Parainfluenza 3 (PCR) Parainfluenza 4 (PCR) RSV (PCR) Entero/Rhino (PCR) SARS-CoV-2 RNA (RT-PCR) Imaging Radiology Impressions: ITS Impressions Abdomen/Pelvis CT 08/13/24 16:47 IMPRESSION: There is thickening of the lower right colon and cecum and terminal ileum. The cecum is positioned deep in the pelvis, in the presacral region. Possible etiologies include infection, ischemia, inflammatory bowel disease, and neoplasm. No abscess or free air is demonstrated. There is a small sliding hiatal hernia. There is an indeterminate low attenuating lesion in the anterolateral spleen. Isolated malignancies of the spleen are rare, though possible. More likely, it represents a pseudocyst or proteinaceous cyst. Consider 3-6 month follow-up. Moderate atherosclerotic disease. Fleischner guidelines were followed. Electronically signed by: Jameson Castro MD 08/13/2024 05:26 PM EDT Mental Status Exam Mental Status Exam Narrative: Appearance: wearing hospital gown, fair hygiene, in NAD Behavior: initially irritable and upset as she reports she had not asked for psychiatry but a driver retraining instructor. Psychomotor: no agitation or retardation noted Speech: clear, regular rate/rhythm/volume, spontaneous TP: linear, tangential at times TC: wanting to be with her mother who is dying Mood: sad Affect: congruent SI: none HI; none VH/AH: none Delusions: none Insight/judgment: fair x 2. memory/cog; alert, oriented x 3. Medications Medications Current Medications Acetaminophen (Acetaminophen 325 Mg Tablet) 650 mg PO Q6H PRN PRN Reason: Pain, Mild 1-3,fever,headache Albuterol/Ipratropium (Albuterol/Iprat 2.5/0.5mg 3 Ml Ampul.Neb) 3 ml INHALE Q4H PRN PRN Reason: Shortness of Breath/Wheezing Amlodipine Besylate (Amlodipine Besylate 5 Mg Tablet) 5 mg PO BID [facility]; Protocol Last Admin: 08/15/24 07:54 Dose: 5 mg Apixaban (Apixaban 2.5 Mg Tablet) 2.5 mg PO BID [facility] On Hold: 08/15/24 13:12 Last Admin: 08/15/24 07:55 Dose: Not Given Ascorbic Acid (Ascorbic Acid 500 Mg Tablet) 1,000 mg PO MOFR [facility] Aspirin (Aspirin 81 Mg Tab.Chew) 81 mg PO DAILY [facility] Last Admin: 08/15/24 07:55 Dose: 81 mg Calcium Carbonate (Calcium Carbonate 750 Mg Tab.Chew) 750 mg PO Q4H PRN PRN Reason: Heartburn Last Admin: 08/15/24 06:22 Dose: 750 mg Clonidine HCl (Clonidine Hcl 0.1 Mg Tablet) 0.1 mg PO TID [facility]; Protocol Last Admin: 08/15/24 07:54 Dose: 0.1 mg Cyanocobalamin (Cyanocobalamin (Vitamin B-12) 500 Mcg Tablet) 1,000 mcg PO DAILY [facility] Last Admin: 08/15/24 07:54 Dose: 1,000 mcg Docusate Sodium (Docusate Sodium 100 Mg Capsule) 100 mg PO BID [facility] Last Admin: 08/15/24 11:12 Dose: Not Given Isosorbide Mononitrate (Isosorbide Mononitrate 30 Mg Tab.Er.24h) 30 mg PO TID [facility]; Protocol Last Admin: 08/15/24 07:54 Dose: 30 mg Lorazepam (Lorazepam 0.5 Mg Tablet) 0.5 mg PO Q8H PRN PRN Reason: Anxiety Last Admin: 08/15/24 01:42 Dose: 0.5 mg Magnesium Hydroxide (Milk Of Magnesia 30 Ml Oral.Susp) 30 ml PO DAILY PRN PRN Reason: Constipation Melatonin (Melatonin 3 Mg Tablet) 6 mg PO BEDTIME PRN PRN Reason: Insomnia Last Admin: 08/14/24 00:48 Dose: 6 mg Metoprolol Tartrate (Metoprolol Tartrate 50 Mg Tablet) 50 mg PO BID [facility]; Protocol Ondansetron HCl (Ondansetron Hcl 4 Mg/2 Ml Vial) 4 mg IVPUSH Q8H PRN PRN Reason: Nausea and Vomiting Last Admin: 08/14/24 16:00 Dose: 4 mg Oxycodone HCl (Oxycodone Hcl Immed Release 5 Mg Tablet) 5 mg PO Q6H PRN PRN Reason: Pain, Severe (Pain Scale 7-10) Senna (Sennosides 8.6 Mg Tablet) 17.2 mg PO BEDTIME [facility] Last Admin: 08/14/24 20:28 Dose: 17.2 mg Sodium Chloride (0.9 % Sodium Chloride Flush 3 Ml Syringe) 3 ml IVFLUSH QSHIFT [facility] Last Admin: 08/15/24 08:13 Dose: Not Given Allergies Allergies Allergy/AdvReac Type Severity Reaction Status Date / Time codeine Allergy Intermediate Nausea Verified 08/13/24 11:59 latex Allergy Intermediate Rash Verified 08/13/24 11:59 hydrochlorothiazide Allergy Unknown Unknown Verified 08/13/24 11:59 morphine Allergy Unknown Nausea Verified 08/13/24 11:59 SHAYY Inhibitors AdvReac Unknown Unknown Verified 08/13/24 11:59 Assessment & Plan Assessment & Plan (1) Situational depression: Status: Acute Code(s): F43.21 - Adjustment disorder with depressed mood Plan Pt expressing appropriate sadness about her mother's current medical condition. Mother apparently is at [facility] on comfort measures only and expected to pass soon. If possible assist pt reunite with mother, if medically stable. if not she would like to speak with driver retraining instructor. Total time managing care of this patient today ____ minutes.
[2024-08-15 15:33] VITALS: BP 168/78; PULSE 64; RESP 18; TEMP 37.1; O2SAT 98
--- NOTE | 2024-08-15 15:57 | P.PNIM_ITS ---
Subjective Subjective Date of Service: 08/15/24 Interval History: htn bradycardia Review of Systems No new episode of bradycardia Blood pressure is somewhat improving Food intake is still variable, has nausea. Physical Exam 2 Vital Signs: Vital Signs: Last Vital Signs Temp 98.7 F 08/15/24 15:33 Pulse 64 08/15/24 15:33 Resp 18 08/15/24 15:33 BP 168/78 H 08/15/24 15:33 Pulse Ox 98 08/15/24 15:33 O2 Del Method Room Air 08/15/24 15:33 BMI result Body Mass Index 24.0 Appearance: Alert.? Oriented X3.? cvs: rrr, [id number] . res: clear to auscultation ,no rhonchii or wheezing abd: no rebound or guarding ,nt, bs present. ext pulses present , no cyanosis . neuro: axo3 , nonfocal. Objective Data Active Medications Acetaminophen (Acetaminophen 325 Mg Tablet) 650 mg PO Q6H PRN PRN Reason: Pain, Mild 1-3,fever,headache Albuterol/Ipratropium (Albuterol/Iprat 2.5/0.5mg 3 Ml Ampul.Neb) 3 ml INHALE Q4H PRN PRN Reason: Shortness of Breath/Wheezing Amlodipine Besylate (Amlodipine Besylate 5 Mg Tablet) 5 mg PO BID [facility]; Protocol Last Admin: 08/15/24 07:54 Dose: 5 mg Documented By: KELLEE Apixaban (Apixaban 2.5 Mg Tablet) 2.5 mg PO BID [facility] On Hold: 08/15/24 13:12 Last Admin: 08/15/24 07:55 Dose: Not Given Documented By: KELLEE Non-Admin Reason: Patient Refused Ascorbic Acid (Ascorbic Acid 500 Mg Tablet) 1,000 mg PO [facility] Aspirin (Aspirin 81 Mg Tab.Chew) 81 mg PO DAILY [facility] Last Admin: 08/15/24 07:55 Dose: 81 mg Documented By: KELLEE Calcium Carbonate (Calcium Carbonate 750 Mg Tab.Chew) 750 mg PO Q4H PRN PRN Reason: Heartburn Last Admin: 08/15/24 06:22 Dose: 750 mg Documented By: VIOLETA Carvedilol (Carvedilol 25 Mg Tablet) 25 mg PO BID [facility]; Protocol Clonidine HCl (Clonidine Hcl 0.1 Mg Tablet) 0.1 mg PO TID [facility]; Protocol Last Admin: 08/15/24 07:54 Dose: 0.1 mg Documented By: KELLEE Cyanocobalamin (Cyanocobalamin (Vitamin B-12) 500 Mcg Tablet) 1,000 mcg PO DAILY [facility] Last Admin: 08/15/24 07:54 Dose: 1,000 mcg Documented By: KELLEE Docusate Sodium (Docusate Sodium 100 Mg Capsule) 100 mg PO BID [facility] Last Admin: 08/15/24 11:12 Dose: Not Given Documented By: KELLEE Non-Admin Reason: Patient Refused Isosorbide Mononitrate (Isosorbide Mononitrate 60 Mg Tab.Er.24h) 60 mg PO DAILY [facility]; Protocol Lorazepam (Lorazepam 0.5 Mg Tablet) 0.5 mg PO Q8H PRN PRN Reason: Anxiety Last Admin: 08/15/24 01:42 Dose: 0.5 mg Documented By: VIOLETA Magnesium Hydroxide (Milk Of Magnesia 30 Ml Oral.Susp) 30 ml PO DAILY PRN PRN Reason: Constipation Melatonin (Melatonin 3 Mg Tablet) 6 mg PO BEDTIME PRN PRN Reason: Insomnia Last Admin: 08/14/24 00:48 Dose: 6 mg Documented By: RITA Omeprazole (Omeprazole 20 Mg Capsule.Dr) 20 mg PO BID@0630,1630 [facility] Ondansetron HCl (Ondansetron Hcl 4 Mg/2 Ml Vial) 4 mg IVPUSH Q8H PRN PRN Reason: Nausea and Vomiting Last Admin: 08/14/24 16:00 Dose: 4 mg Documented By: KELLEE Oxycodone HCl (Oxycodone Hcl Immed Release 5 Mg Tablet) 5 mg PO Q6H PRN PRN Reason: Pain, Severe (Pain Scale 7-10) Senna (Sennosides 8.6 Mg Tablet) 17.2 mg PO BEDTIME [facility] Last Admin: 08/14/24 20:28 Dose: 17.2 mg Documented By: VIOLETA Sodium Chloride (0.9 % Sodium Chloride Flush 3 Ml Syringe) 3 ml IVFLUSH QSHIFT [facility] Last Admin: 08/15/24 08:13 Dose: Not Given Documented By: KELLEE Non-Admin Reason: Previously Administered Labs 08/15/24 05:41 08/15/24 05:41 Labs: Laboratory Results - last 24 hr 08/14/24 08/14/24 08/15/24 16:36 18:30 05:41 Anion Gap 16 Estim Creat Clear Calc 19.6 Estimated GFR 18 Random Glucose 110 Calcium 9.4 Urine Color Yellow Urine Appearance Clear Urine pH 5.0 Ur Specific [place] 1.020 Urine Protein >=1000 (4+) H Urine Glucose (UA) Negative Urine Ketones Negative Urine Blood Negative Urine Nitrite Negative Ur Leukocyte Esterase Negative Urine RBC 0-2 Urine WBC 0-5 Ur Squamous Epith Cells 3-5 Urine Bacteria None Seen Hyaline Casts 11-20 Respiratory Panel Garcia See Note Adenovirus (Rapid PCR) Not Detected B.pert (TEM-PCR) Not Detected B.parapertussis DNA PCR Not Detected C. pneumoniae DNA (PCR) Not Detected Coronavirus OC43 (PCR) Not Detected Coronavirus HKU1 (PCR) Not Detected Coronavirus 229E (PCR) Not Detected Coronavirus NL63 (PCR) Not Detected Human Metapneumovir PCR Not Detected Influenza A (RT-PCR) Not Detected Influenza A (H1) PCR Not Detected Influ A (H1/09) PCR Not Detected Influenza A (H3) PCR Not Detected Influenza B (RT-PCR) Not Detected M. pneumoniae (PCR) Not Detected Parainfluenza 1 (PCR) Not Detected Parainfluenza 2 (PCR) Not Detected Parainfluenza 3 (PCR) Not Detected Parainfluenza 4 (PCR) Not Detected RSV (PCR) Not Detected Entero/Rhino (PCR) Not Detected SARS-CoV-2 RNA (RT-PCR) Not Detected Assessment and Plan (1) Hypertension: Status: Acute (2) CKD (chronic kidney disease) stage 3, GFR 30-59 ml/min: Status: Acute Assessment and Plan: 74-year-old female with history of hypertension, CAD, PCI with stents 2019, PVD, 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 JUANA on iron infusions weekly, Graves disease, HFpEF (grade 1 diastolic dysfunction), mild MVR, DMII, osteoarthritis, GI bleed, chronic kidney disease stage 3 is being admitted for intractable nausea with notable increase in patient's troponin level. Patient has underlying chronic kidney disease for patient is currently at baseline. Patient is requesting to speak to her welt edge rounder as her Lasix was recently increased to 80 mg daily and patient has not been able to tolerate that dose. Intractable nausea Antiemetics p.r.n. to include Zofran and Reglan, QTC normal ct abomen :Incidental splenic lesion on CT scan,Differentials include infection, inflammation versus neoplasm - patient underwent colonoscopy at [facility] in April of 2024 and was told she has diverticulosis.-no leukocytosis, fever abdominal pain, normal Lactate 1.6 Stool for occult ordered noting anemia, likely secondary to renal disease plan: clear liquid diet,ppi,Gi eval -continue PPI, antiemetic, hold Eliquis possible EGD next week. Episode of bradycardia heart rate is in 30s for brief moment Patient is asymptomatic Hold metoprolol tsh noramal Hypertensive uncontrolled: Low-salt diet, currently on clears Continue amlodipine, Imdur, clonidine, hold metoprolol currently because of bradycardia Elevated troponin Troponins flat(likely related to uncontrolled htn). Last echo 02/06/2024,[id number] had episode of bradycardia plan: hold metoprolol cardiology consult -bardycardia ,elevated trop,uncontrolled htn HFrEF, grade 1 diastolic failure -BNP pending -Daily weights -Low Na diet -Pt recently increased on her lasix to 40 BID, will hold for now HX DVT/PE -Continue eliquis -Pt has upcoming appt with HEME as outpatient Anemia acute on chronic, JUANA -H/H stable, 8.0/28.2, no indication for transfusion -Patient did not receive her weekly iron infusion this week due to placing mother and hospice -Monitor H&H Chronic kidney disease stage 3 B-Renal function appears to be baseline Holding Lasix, current dose 40 mg b.i.d. Patient has received IV fluids in the emergency department and does not have any indication of volume overload or hypoxia UA with significant proteinuria plan: Avoid hypotension,Avoid nephrotoxic meds including NSAIDs nephrology eval. Hx of Grave's disease tsh normal Pt otherwise asymptomatic R knee OA patient takes oxycodone usually 10 mg as needed q.6 but has reduced the dose to 5,Tylenol PRN DVT prophylaxis: Eliquis. PPI prophylaxis: Omeprazole ongoing need: Persistent nausea , abdominal abdominal CT, uncontrolled hypotension, bradycardia-need tele monitoring, renal function electrolyte monitoring, unable to take p.o. yet, need EGD next week. Quality Stroke Does the patient have a stroke diagnosis?: No Reason for No Anti-thrombotic by Day Two: N/A - Med Ordered VTE Prior VTE?: No VTE Risk Level:: Medical - moderate - high VTE Device Contraindication: N/A - Device Ordered VTE Drug Contraindication: N/A - Med Ordered
[2024-08-15] MEDS: 0.9 % Sodium Chloride Flush 3 ML SYRINGE IVFLUSH ×2 (16:06→20:30)
[2024-08-15 19:10] VITALS: BP 158/68; PULSE 62; RESP 18; TEMP 37.2; O2SAT 97
[2024-08-16 03:50] VITALS: BP 160/58; PULSE 51; RESP 18; TEMP 36; O2SAT 97
[2024-08-16] MEDS: oxyCODONE HCl Immed Release 5 MG TABLET PO ×2 (04:15→15:29)
[2024-08-16 07:45] VITALS: BP 150/68; PULSE 61; RESP 14; TEMP 36.6; O2SAT 96
[2024-08-16] MEDS: Milk of Magnesia 30 ML ORAL.SUSP PO (08:13)
[2024-08-16] MEDS: 0.9 % Sodium Chloride Flush 3 ML SYRINGE IVFLUSH ×3 (08:16→21:10)
--- NOTE | 2024-08-16 09:35 | P.PNIM_ITS ---
Subjective Subjective Date of Service: 08/16/24 Interval History: htn Review of Systems po intake some what improving feels constipated no new bradycardia episode Physical Exam 2 Vital Signs: Vital Signs: Last Vital Signs Temp 97.8 F 08/16/24 07:45 Pulse 61 08/16/24 07:45 Resp 14 08/16/24 07:45 BP 150/68 H 08/16/24 07:45 Pulse Ox 96 08/16/24 07:45 O2 Del Method Room Air 08/16/24 07:45 BMI result Body Mass Index 24.0 Appearance: Alert.? Oriented X3.? cvs: rrr, [id number] . res: clear to auscultation ,no rhonchii or wheezing abd: no rebound or guarding ,nt, bs present. ext pulses present , no cyanosis . neuro: axo3 , nonfocal. Objective Data Active Medications Acetaminophen (Acetaminophen 325 Mg Tablet) 650 mg PO Q6H PRN PRN Reason: Pain, Mild 1-3,fever,headache Albuterol/Ipratropium (Albuterol/Iprat 2.5/0.5mg 3 Ml Ampul.Neb) 3 ml INHALE Q4H PRN PRN Reason: Shortness of Breath/Wheezing Amlodipine Besylate (Amlodipine Besylate 5 Mg Tablet) 5 mg PO BID [facility]; Protocol Last Admin: 08/16/24 08:12 Dose: 5 mg Documented By: JIMMY Apixaban (Apixaban 2.5 Mg Tablet) 2.5 mg PO BID [facility] On Hold: 08/15/24 13:12 Last Admin: 08/15/24 07:55 Dose: Not Given Documented By: KELLEE Non-Admin Reason: Patient Refused Ascorbic Acid (Ascorbic Acid 500 Mg Tablet) 1,000 mg PO MOFR [facility] Last Admin: 08/15/24 23:25 Dose: Not Given Documented By: YUNIOR Non-Admin Reason: pt declined Aspirin (Aspirin 81 Mg Tab.Chew) 81 mg PO DAILY [facility] Last Admin: 08/16/24 08:12 Dose: 81 mg Documented By: JIMMY Calcium Carbonate (Calcium Carbonate 750 Mg Tab.Chew) 750 mg PO Q4H PRN PRN Reason: Heartburn Last Admin: 08/15/24 06:22 Dose: 750 mg Documented By: VIOLETA Carvedilol (Carvedilol 25 Mg Tablet) 25 mg PO BID [facility]; Protocol Last Admin: 08/16/24 08:12 Dose: 25 mg Documented By: JIMMY Clonidine HCl (Clonidine Hcl 0.1 Mg Tablet) 0.1 mg PO TID [facility]; Protocol Last Admin: 08/16/24 08:12 Dose: 0.1 mg Documented By: JIMMY Cyanocobalamin (Cyanocobalamin (Vitamin B-12) 500 Mcg Tablet) 1,000 mcg PO DAILY [facility] Last Admin: 08/16/24 08:12 Dose: 1,000 mcg Documented By: JIMMY Docusate Sodium (Docusate Sodium 100 Mg Capsule) 100 mg PO BID [facility] Last Admin: 08/16/24 08:25 Dose: Not Given Documented By: JIMMY Non-Admin Reason: difficulty swallowing pills Isosorbide Mononitrate (Isosorbide Mononitrate 60 Mg Tab.Er.24h) 60 mg PO DAILY [facility]; Protocol Last Admin: 08/16/24 08:12 Dose: 60 mg Documented By: JIMMY Lorazepam (Lorazepam 0.5 Mg Tablet) 0.5 mg PO Q8H PRN PRN Reason: Anxiety Last Admin: 08/15/24 01:42 Dose: 0.5 mg Documented By: VIOLETA Magnesium Hydroxide (Milk Of Magnesia 30 Ml Oral.Susp) 30 ml PO DAILY PRN PRN Reason: Constipation Last Admin: 08/16/24 08:13 Dose: 30 ml Documented By: JIMMY Melatonin (Melatonin 3 Mg Tablet) 6 mg PO BEDTIME PRN PRN Reason: Insomnia Last Admin: 08/14/24 00:48 Dose: 6 mg Documented By: RITA Omeprazole (Omeprazole 20 Mg Capsule.Dr) 20 mg PO BID@0830,3790 [facility] Last Admin: 08/16/24 06:16 Dose: Not Given Documented By: YUNIOR Non-Admin Reason: pt stated unable to swallow either alone or i Ondansetron HCl (Ondansetron Hcl 4 Mg/2 Ml Vial) 4 mg IVPUSH Q8H PRN PRN Reason: Nausea and Vomiting Last Admin: 08/16/24 04:11 Dose: 4 mg Documented By: YUNIOR Oxycodone HCl (Oxycodone Hcl Immed Release 5 Mg Tablet) 5 mg PO Q6H PRN PRN Reason: Pain, Severe (Pain Scale 7-10) Last Admin: 08/16/24 04:15 Dose: 5 mg Documented By: YUNIOR Senna (Sennosides 8.6 Mg Tablet) 17.2 mg PO BEDTIME [facility] Last Admin: 08/15/24 20:29 Dose: 17.2 mg Documented By: YUNIOR Sodium Chloride (0.9 % Sodium Chloride Flush 3 Ml Syringe) 3 ml IVFLUSH QSHIFT [facility] Last Admin: 08/16/24 08:16 Dose: 3 ml Documented By: JIMMY Labs 08/15/24 05:41 08/15/24 05:41 Labs: Laboratory Results - last 24 hr 08/14/24 08/16/24 18:30 06:12 Hold Purple Top SEE NOTE Respiratory Panel Garcia See Note Adenovirus (Rapid PCR) Not Detected B.pert (TEM-PCR) Not Detected B.parapertussis DNA PCR Not Detected C. pneumoniae DNA (PCR) Not Detected Coronavirus OC43 (PCR) Not Detected Coronavirus HKU1 (PCR) Not Detected Coronavirus 229E (PCR) Not Detected Coronavirus NL63 (PCR) Not Detected Human Metapneumovir PCR Not Detected Influenza A (RT-PCR) Not Detected Influenza A (H1) PCR Not Detected Influ A (H1/09) PCR Not Detected Influenza A (H3) PCR Not Detected Influenza B (RT-PCR) Not Detected M. 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 JUANA on iron infusions weekly, Graves disease, HFpEF (grade 1 diastolic dysfunction), mild MVR, DMII, osteoarthritis, GI bleed, chronic kidney disease stage 3 is being admitted for intractable nausea with notable increase in patient's troponin level. Patient has underlying chronic kidney disease for patient is currently at baseline. Patient is requesting to speak to her operations and maintenance manager as her Lasix was recently increased to 80 mg daily and patient has not been able to tolerate that dose. Intractable nausea Antiemetics p.r.n. to include Zofran and Reglan, QTC normal ct abomen :Incidental splenic lesion on CT scan,Differentials include infection, inflammation versus neoplasm - patient underwent colonoscopy at [facility] in April of 2024 and was told she has diverticulosis.-no leukocytosis, fever abdominal pain, normal Lactate 1.6 Stool for occult ordered noting anemia, likely secondary to renal disease plan: Gi eval -continue PPI, antiemetic, hold Eliquis possible EGD next week. Episode of bradycardia heart rate is in 30s for brief moment(2-3 days back) was sleeping at that time,Patient is asymptomatic tsh normal d/w cardiology and nephro:changed metoprolol to coreg . Hypertensive uncontrolled: Low-salt diet, currently on clears adjusted amlodipine 5mg po bid, Imdur 60 mg qd -may need to go to 90 mg qd, clonidine, changed metoprolol to coreg . Elevated troponin Troponins flat(likely related to uncontrolled htn). Last echo 02/06/2024: ef 58%,ekg-nsr , no new changes. had episode of bradycardia as above plan: changed metoprolol to coreg. d/w cardiology: mild elevated trops -likely demand in setting of htn/ckd. patient is aymptomatic. HFrEF, grade 1 diastolic failure -BNP pending -Daily weights -Low Na diet -Pt recently increased on her lasix to 40 BID, patient is delining to start it for now. HX DVT/PE -Continue eliquis -Pt has upcoming appt with [facility] as outpatient Anemia acute on chronic, JUANA -H/H stable, 8.0/28.2, no indication for transfusion -Patient did not receive her weekly iron infusion this week due to placing mother and hospice -Monitor H&H Chronic kidney disease stage 3 B-Renal function appears to be baseline Holding Lasix, current dose 40 mg b.i.d. Patient has received IV fluids in the emergency department and does not have any indication of volume overload or hypoxia UA with significant proteinuria plan: Avoid hypotension,Avoid nephrotoxic meds including NSAIDs nephrology eval. Hx of Grave's disease tsh normal Pt otherwise asymptomatic R knee OA patient takes oxycodone usually 10 mg as needed q.6 but has reduced the dose to 5,Tylenol PRN DVT prophylaxis: Eliquis. PPI prophylaxis: Omeprazole ongoing need: Persistent nausea , abdominal abdominal CT, uncontrolled hypotension, bradycardia-need tele monitoring, renal function electrolyte monitoring, unable to take p.o. yet, need EGD next week. Quality Stroke Does the patient have a stroke diagnosis?: No Reason for No Anti-thrombotic by Day Two: N/A - Med Ordered VTE Prior VTE?: No VTE Risk Level:: Medical - moderate - high VTE Device Contraindication: N/A - Device Ordered VTE Drug Contraindication: N/A - Med Ordered
--- NOTE | 2024-08-16 14:04 | PC.NURSE ---
pt was given carvedilol after education as this medication was ordered instead of metoprolol. pt was given carvedilol the night prior. After administration pt notified RN of dizziness and not feeling herself which she attributed to the carvedilol. RN talked with pt and she was adamant that she was not taking carvedilol again. notified and switched pt back to metopropolol.
[2024-08-16 14:49] VITALS: BP 146/66
[2024-08-16] MEDS: Omeprazole/Na Bicarb Oral Susp 20 MG/10 ML UD Cup PO (15:30)
[2024-08-16 15:45] VITALS: BP 130/50; PULSE 55; RESP 18; TEMP 36.8; O2SAT 96
[2024-08-16 19:48] VITALS: BP 132/81; PULSE 59; RESP 18; TEMP 36.7; O2SAT 97
[2024-08-17 02:13] VITALS: RESP 18
[2024-08-17 04:00] VITALS: BP 142/48; PULSE 64; RESP 16; TEMP 36.1; O2SAT 95
[2024-08-17] MEDS: Omeprazole/Na Bicarb Oral Susp 20 MG/10 ML UD Cup PO ×2 (06:22→16:30)
[2024-08-17 08:08] VITALS: BP 130/45; PULSE 63; RESP 12; TEMP 36.8; O2SAT 96
[2024-08-17] MEDS: oxyCODONE HCl Immed Release 5 MG TABLET PO ×2 (08:26→17:47)
[2024-08-17] MEDS: 0.9 % Sodium Chloride Flush 3 ML SYRINGE IVFLUSH ×3 (08:28→21:33)
--- NOTE | 2024-08-17 12:43 | PC.NURSE ---
notified by [employer] SAW OPERATOR that heart rate in 30s with occasional junctional beats. Pt asymptomic while sitting on toilet. Pt assisted back to bed and Dr. Ward notified. Cardiology consult ordered. Currently sinus rizwana/sinus rhythm 50-60s.
--- NOTE | 2024-08-17 12:53 | HO.PM.IMPN ---
Subjective Subjective Date of Service: 08/17/24 Interval History: htn, bradycardia Review of Systems seems Physical Exam Vital Signs: Vital Signs: Last Vital Signs Temp 98.3 F 08/17/24 08:08 Pulse 63 08/17/24 08:08 Resp 12 08/17/24 08:08 BP 130/45 L 08/17/24 08:08 Pulse Ox 96 08/17/24 08:08 O2 Del Method Room Air 08/17/24 08:08 BMI result Body Mass Index 24.0 Appearance: Alert.? Oriented X3.? cvs: rrr, [id number] . res: clear to auscultation ,no rhonchii or wheezing abd: no rebound or guarding ,nt, bs present. ext pulses present , no cyanosis . neuro: axo3 , nonfocal. Objective Data Active Medications Acetaminophen (Acetaminophen 325 Mg Tablet) 650 mg PO Q6H PRN PRN Reason: Pain, Mild 1-3,fever,headache Albuterol/Ipratropium (Albuterol/Iprat 2.5/0.5mg 3 Ml Ampul.Neb) 3 ml INHALE Q4H PRN PRN Reason: Shortness of Breath/Wheezing Amlodipine Besylate (Amlodipine Besylate 5 Mg Tablet) 5 mg PO BID [facility]; Protocol Last Admin: 08/17/24 08:27 Dose: 5 mg Documented By: JIMMY Apixaban (Apixaban 2.5 Mg Tablet) 2.5 mg PO BID [facility] On Hold: 08/15/24 13:12 Last Admin: 08/15/24 07:55 Dose: Not Given Documented By: KELLEE Non-Admin Reason: Patient Refused Ascorbic Acid (Ascorbic Acid 500 Mg Tablet) 1,000 mg PO [facility] Last Admin: 08/15/24 23:25 Dose: Not Given Documented By: YUNIOR Non-Admin Reason: pt declined Aspirin (Aspirin 81 Mg Tab.Chew) 81 mg PO DAILY [facility] On Hold: 08/16/24 09:49 Last Admin: 08/16/24 08:12 Dose: 81 mg Documented By: JIMMY Bisacodyl (Bisacodyl 10 Mg Supp.Rect) 10 mg [place] DAILY [facility] Last Admin: 08/17/24 08:28 Dose: 10 mg Documented By: JIMMY Calcium Carbonate (Calcium Carbonate 750 Mg Tab.Chew) 750 mg PO Q4H PRN PRN Reason: Heartburn Last Admin: 08/15/24 06:22 Dose: 750 mg Documented By: VIOLETA Clonidine HCl (Clonidine Hcl 0.1 Mg Tablet) 0.1 mg PO TID [facility]; Protocol Last Admin: 08/17/24 08:26 Dose: 0.1 mg Documented By: JIMMY Cyanocobalamin (Cyanocobalamin (Vitamin B-12) 500 Mcg Tablet) 1,000 mcg PO DAILY [facility] Last Admin: 08/17/24 08:27 Dose: 1,000 mcg Documented By: JIMMY Docusate Sodium (Docusate Sodium 100 Mg/10 Ml Liquid) 100 mg PO BID [facility] Last Admin: 08/17/24 08:25 Dose: 100 mg Documented By: JIMMY Isosorbide Mononitrate (Isosorbide Mononitrate 30 Mg Tab.Er.24h) 90 mg PO DAILY [facility]; Protocol Last Admin: 08/17/24 10:30 Dose: Not Given Documented By: JIMMY Non-Admin Reason: unable to swallow pills whole Lorazepam (Lorazepam 0.5 Mg Tablet) 0.5 mg PO Q8H PRN PRN Reason: Anxiety Last Admin: 08/17/24 01:13 Dose: 0.5 mg Documented By: YUNIOR Magnesium Hydroxide (Milk Of Magnesia 30 Ml Oral.Susp) 30 ml PO DAILY PRN PRN Reason: Constipation Last Admin: 08/16/24 08:13 Dose: 30 ml Documented By: JIMMY Melatonin (Melatonin 3 Mg Tablet) 6 mg PO BEDTIME PRN PRN Reason: Insomnia Last Admin: 08/14/24 00:48 Dose: 6 mg Documented By: RITA Omeprazole (Omeprazole/Na Bicarb Oral Susp 20 Mg/10 Ml Ud Cup) 20 mg PO BID@0630,1630 [facility] Last Admin: 08/17/24 06:22 Dose: 20 mg Documented By: YUNIOR Ondansetron HCl (Ondansetron Hcl 4 Mg/2 Ml Vial) 4 mg IVPUSH Q8H PRN PRN Reason: Nausea and Vomiting Last Admin: 08/17/24 08:28 Dose: 4 mg Documented By: JIMMY Oxycodone HCl (Oxycodone Hcl Immed Release 5 Mg Tablet) 5 mg PO Q6H PRN PRN Reason: Pain, Severe (Pain Scale 7-10) Last Admin: 08/17/24 08:26 Dose: 5 mg Documented By: JIMMY Polyethylene Glycol (Polyethylene Glycol 3350 17 Gm Powd.Pack) 17 gm PO DAILY [facility] Last Admin: 08/17/24 08:26 Dose: 17 gm Documented By: JIMMY Sodium Chloride (0.9 % Sodium Chloride Flush 3 Ml Syringe) 3 ml IVFLUSH QSHIFT [facility] Last Admin: 08/17/24 08:28 Dose: 3 ml Documented By: JIMMY Labs 08/15/24 05:41 08/15/24 05:41 Assessment and Plan (1) Hypertension: Status: Acute (2) CKD (chronic kidney disease) stage 3, GFR 30-59 ml/min: Status: Acute Assessment and Plan: 74-year-old female with history of hypertension, CAD, PCI with stents 2018, PVD, 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 JUANA on iron infusions weekly, Graves disease, HFpEF (grade 1 diastolic dysfunction), mild MVR, DMII, osteoarthritis, GI bleed, chronic kidney disease stage 3 is being admitted for intractable nausea with notable increase in patient's troponin level. Patient has underlying chronic kidney disease for patient is currently at baseline. Patient is requesting to speak to her rn admission as her Lasix was recently increased to 80 mg daily and patient has not been able to tolerate that dose. Intractable nausea Antiemetics p.r.n. to include Zofran and Reglan, QTC normal ct abomen :Incidental splenic lesion on CT scan,Differentials include infection, inflammation versus neoplasm - patient underwent colonoscopy at [facility] in April of 2024 and was told she has diverticulosis.-no leukocytosis, fever abdominal pain, normal Lactate 1.6 Stool for occult ordered noting anemia, likely secondary to renal disease plan: Gi eval -continue PPI, antiemetic, hold Eliquis possible EGD likely tomorrow Episode of bradycardia heart rate is in 30s for brief moment(2-3 days back), again today brabycardic with some junctional beats was sleeping at that time,Patient is asymptomatic tsh normal Patient refused Coreg, metoprolol stopped due to bradycardia Cardiology evaluation Htn: Low-salt diet, currently on clears amlodipine 5mg po bid, Imdur 90 mg qd, clonidine, stopped Coreg and metoprolol . Elevated troponin Troponins flat(likely related to uncontrolled htn). Last echo 02/06/2024: ef 58%,ekg-nsr , no new changes. had episode of bradycardia as above . plan: stop metoprolol /coreg. d/w cardiology: mild elevated trops -likely demand in setting of htn/ckd. patient is asymptomatic. HFrEF, grade 1 diastolic failure BNP elevated Daily weights Low Na diet Pt recently increased on her lasix to 40 BID, patient is delining to start it for now. HX DVT/PE hold eliquis due to egd in am. Pt has upcoming appt with [facility] as outpatient Anemia acute on chronic, JUANA H/H stable: 7.5/25.8 (seems hb around 8 atleast), no indication for transfusion Patient did not receive her weekly iron infusion this week due to placing mother and hospice Monitor H&H Chronic kidney disease stage 3 B-Renal function appears to be baseline Holding Lasix, current dose 40 mg b.i.d. Patient has received IV fluids in the emergency department and does not have any indication of volume overload or hypoxia UA with significant proteinuria plan: Avoid hypotension,Avoid nephrotoxic meds including NSAIDs nephrology eval. Hx of Grave's disease tsh normal Pt otherwise asymptomatic R knee OA patient takes oxycodone usually 10 mg as needed q.6 but has reduced the dose to 5,Tylenol PRN DVT prophylaxis: Eliquis. PPI prophylaxis: Omeprazole ongoing need: Persistent nausea , abdominal abdominal CT, uncontrolled hypotension, bradycardia-need tele monitoring, renal function electrolyte monitoring, unable to take p.o. yet, need EGD next week. Quality Stroke Does the patient have a stroke diagnosis?: No Reason for No Anti-thrombotic by Day Two: N/A - Med Ordered VTE Prior VTE?: No VTE Risk Level:: Medical - moderate - high VTE Device Contraindication: N/A - Device Ordered VTE Drug Contraindication: N/A - Med Ordered
--- NOTE | 2024-08-17 14:50 | P.CONCA_ITS ---
History of Present Illness History of Present Illness Date of Service: 08/17/24 Chief complaint: Nausea/abd pain Narrative: This is a cardiology consultation regarding question of bradycardia. Examined patient as well as reviewed the telemetry. Very brief episode of bradycardia when the patient was apparently straining on the commode. Earlier in the admission, she had another episode of brief bradycardia. At that time, decision was made to hold off on beta-blockers. However, because of the bradycardia issues we have been asked to see here. Patient herself states she has no issues like feeling dizzy or lightheaded/presyncopal extra. She has seen [facility] in the past for history of coronary disease but nothing recently. At this time, she is mainly here for nausea but does not have any other cardiac concerns. No angina or anything else along those lines. She has a history of DVT/PE on Eliquis. History of chronic kidney disease. Hypertension and many comorbidities. Review of Systems 2 Review of Systems: Yes all other systems are reviewed and are negative Constitutional: Constitutional: Reports as per HPI and Reports no additional constitutional complaints Eyes: Eyes: Reports as per HPI and Denies no additional eye complaints ENT: Denies system reviewed and no additional complaints, except as documented and Reports as per HPI Cardiovascular: Cardiovascular: Reports as per HPI, Reports no additional cardiovascular complaints, Denies acrocyanosis, Denies cool extremities, Denies chest pain, Denies leg edema, Denies lightheadedness, Denies palpitations and Denies dyspnea Respiratory: Respiratory: Reports as per HPI, Denies no additional respiratory complaints and Denies dyspnea Gastrointestinal: Gastrointestinal: Reports as per HPI, Denies no additional gastrointestinal complaints and Reports nausea Genitourinary: Genitourinary: Reports as per HPI Musculoskeletal: Musculoskeletal: Reports no additional musculoskeletal complaints and Reports as per HPI Integumentary/Breasts: Skin/Breast: Reports system reviewed and no additional complaints, except as docu Neurologic: Reports system reviewed and no additional complaints, except as documented and Reports as per HPI Psychiatric: Psychiatric: Reports no additional psychiatric complaints and Reports as per HPI Endocrine: Endocrine: Reports no additional endocrine complaints, Reports as per HPI and Denies palpitations Hematologic/Lymphatic: Hematologic/Lymphatic: Reports no additional hematologic/lymphatic complaints and Reports as per HPI Allergic/Immunologic: Allergic/Immunologic: Reports no additional allergic/immunologic complaints and Reports as per HPI [facility] Past Medical History Medical History (Updated 08/17/24 @ 14:53 by Oumar Mcdowell MD) Graves disease CAD (coronary artery disease) Osteoarthritis Hx of transfusion of packed red blood cells Diet-controlled diabetes mellitus Pulmonary embolism DVT (deep venous thrombosis) Anemia in chronic kidney disease Hypertension CKD (chronic kidney disease) stage 3, GFR 30-59 ml/min Family History Family History Maternal Grandfather Stomach cancer Surgical History Surgical History Hx of heart artery stent History of partial hysterectomy Social History Social History Household Members: None Housing: Apartment Do you presently have visiting nurse or other home services: No Alcohol intake: never Patient Tobacco Use Status: Former Tobacco user Tobacco use type: Cigarette Smoked in Last 30 Days: No Use of substances other than those prescribed or required for medical reasons: No Currently Displaying Signs/Symptoms of Drug Intoxication Withdrawal: No Have you been hit, kicked, punched, or otherwise hurt by someone within the past year? If so, by whom?: No Do you feel safe in your current relationship?: No Current Relationship Is there a partner from a previous relationship who is making you feel unsafe now?: No Are you made to feel afraid or neglected: No Advance Directives: No Advance Directives Information Provided: Yes Do you have a plan to hurt others: No Plan Recently lost weight without trying: No Nutrition Risks: No Nutritional Risk Patient : No : No Poor oral hygiene: No service: No Current occupational status: retired Travel History Ebola Risk: Travel/Contact With Anyone From Affected Area/s: No Has Patient Experienced Ebola Symptoms: No Meds Allergies Allergy/AdvReac Type Severity Reaction Status Date / Time codeine Allergy Intermediate Nausea Verified 08/13/24 11:59 latex Allergy Intermediate Rash Verified 08/13/24 11:59 hydrochlorothiazide Allergy Unknown Unknown Verified 08/13/24 11:59 morphine Allergy Unknown Nausea Verified 08/13/24 11:59 SHAYY Inhibitors AdvReac Unknown Unknown Verified 08/13/24 11:59 Active Medications: Current Medications Acetaminophen (Acetaminophen 325 Mg Tablet) 650 mg PO Q6H PRN PRN Reason: Pain, Mild 1-3,fever,headache Albuterol/Ipratropium (Albuterol/Iprat 2.5/0.5mg 3 Ml Ampul.Neb) 3 ml INHALE Q4H PRN PRN Reason: Shortness of Breath/Wheezing Amlodipine Besylate (Amlodipine Besylate 5 Mg Tablet) 5 mg PO BID [facility]; Protocol Last Admin: 08/17/24 08:27 Dose: 5 mg Apixaban (Apixaban 2.5 Mg Tablet) 2.5 mg PO BID [facility] On Hold: 08/15/24 13:12 Last Admin: 08/15/24 07:55 Dose: Not Given Ascorbic Acid (Ascorbic Acid 500 Mg Tablet) 1,000 mg PO MOFR [facility] Last Admin: 08/15/24 23:25 Dose: Not Given Aspirin (Aspirin 81 Mg Tab.Chew) 81 mg PO DAILY [facility] On Hold: 08/16/24 09:49 Last Admin: 08/16/24 08:12 Dose: 81 mg Bisacodyl (Bisacodyl 10 Mg Supp.Rect) 10 mg [place] DAILY [facility] Last Admin: 08/17/24 08:28 Dose: 10 mg Calcium Carbonate (Calcium Carbonate 750 Mg Tab.Chew) 750 mg PO Q4H PRN PRN Reason: Heartburn Last Admin: 08/15/24 06:22 Dose: 750 mg Clonidine HCl (Clonidine Hcl 0.1 Mg Tablet) 0.1 mg PO TID [facility]; Protocol Last Admin: 08/17/24 14:47 Dose: 0.1 mg Cyanocobalamin (Cyanocobalamin (Vitamin B-12) 500 Mcg Tablet) 1,000 mcg PO DAILY [facility] Last Admin: 08/17/24 08:27 Dose: 1,000 mcg Docusate Sodium (Docusate Sodium 100 Mg/10 Ml Liquid) 100 mg PO BID [facility] Last Admin: 08/17/24 08:25 Dose: 100 mg Isosorbide Mononitrate (Isosorbide Mononitrate 30 Mg Tab.Er.24h) 90 mg PO DAILY [facility]; Protocol Last Admin: 08/17/24 10:30 Dose: Not Given Lorazepam (Lorazepam 0.5 Mg Tablet) 0.5 mg PO Q8H PRN PRN Reason: Anxiety Last Admin: 08/17/24 01:13 Dose: 0.5 mg Magnesium Hydroxide (Milk Of Magnesia 30 Ml Oral.Susp) 30 ml PO DAILY PRN PRN Reason: Constipation Last Admin: 08/16/24 08:13 Dose: 30 ml Melatonin (Melatonin 3 Mg Tablet) 6 mg PO BEDTIME PRN PRN Reason: Insomnia Last Admin: 08/14/24 00:48 Dose: 6 mg Omeprazole (Omeprazole/Na Bicarb Oral Susp 20 Mg/10 Ml Ud Cup) 20 mg PO BID@0630,1630 [facility] Last Admin: 08/17/24 06:22 Dose: 20 mg Ondansetron HCl (Ondansetron Hcl 4 Mg/2 Ml Vial) 4 mg IVPUSH Q8H PRN PRN Reason: Nausea and Vomiting Last Admin: 08/17/24 08:28 Dose: 4 mg Oxycodone HCl (Oxycodone Hcl Immed Release 5 Mg Tablet) 5 mg PO Q6H PRN PRN Reason: Pain, Severe (Pain Scale 7-10) Last Admin: 08/17/24 08:26 Dose: 5 mg Polyethylene Glycol (Polyethylene Glycol 3350 17 Gm Powd.Pack) 17 gm PO DAILY [facility] Last Admin: 08/17/24 08:26 Dose: 17 gm Sodium Chloride (0.9 % Sodium Chloride Flush 3 Ml Syringe) [address] [facility] Last Admin: 08/17/24 08:28 Dose: 3 ml Home Medications ?Medication ?Instructions ?Recorded ?Confirmed ?Last Taken ?Type apixaban 2.5 mg tablet (Eliquis) 2.5 mg PO BID 3 08/13/24 08/12/24 History ascorbate calcium (vitamin C) 500 1 g PO MOFR 02/27/24 08/13/24 08/11/24 History mg tablet mecobalamin (vitamin B12) 1,000 1,000 mcg PO DAILY 10/1308/13/24 08/12/24 History mcg chewable tablet acetaminophen 500 mg tablet 1,500 mg PO DAILY PRN Pain 05/08/24 08/13/24 Unknown History clonidine HCl 0.1 mg tablet 0.1 mg PO TID 05/08/2408/12/24 History aspirin 81 mg chewable tablet 1 tab PO DAILY 08/13/24 08/13/24 08/12/24 History furosemide 20 mg tablet 20 mg PO TID 08/13/2408/12/24 History metoprolol tartrate 50 mg tablet 100 mg PO BID 08/13/ 5 08/13/24 08/12/24 History Physical Exam 2 Vital Signs: Vital Signs: Last Vital Signs Temp 98.3 F 08/17/24 08:08 Pulse 63 08/17/24 08:08 Resp 12 08/17/24 08:08 BP 130/45 L 08/17/24 08:08 Pulse Ox 96 08/17/24 08:08 O2 Del Method Room Air 08/17/24 08:08 BMI result Body Mass Index 24.0 Const: General: comfortable and no acute distress O rientation/consciousness: patient oriented x3 HEENT: Other: Unremarkable Head: Yes normal to inspection Neck: Neck: Yes normal visual inspection Chest: Chest palpation & inspection: normal inspection of the chest Resp: Auscultation: clear to auscultation bilaterally Cardio: Palpation: normal PMI Heart sounds: S1 normal heart sound present, S2 normal heart sound present, no gallops, no murmurs and no rubs GI: Palpation (GI): Soft to palpation Back/Spine/Pelvis: Other: unremarkable Skin: General skin exam: no rashes or lesions noted Neuro: General: patient oriented x3 Extrem: General: Yes normal to inspection Psych: Mental Status: mental status grossly normal Objective Labs and Meds 08/15/24 05:41 08/15/24 05:41 ECG Interpretation: EKG from 08/13 shows underlying sinus rhythm at 86/Min; sinus arrhythmias; cannot exclude old anterior infarct; nonspecific ST-T changes. Findings improved compared to prior EKG from April. Assessment and Plan (1) Bradycardia: Status: Acute (2) CAD (coronary artery disease): Qualifiers: Coronary Disease-Associated Artery/Lesion type: [place] artery [place] vs. 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 Status: Acute (3) Hypertension: Qualifiers: Hypertension type: primary hypertension Qualified Code(s): I10 - Essential (primary) hypertension Status: Acute (4) CKD (chronic kidney disease) stage 3, GFR 30-59 ml/min: Qualifiers: Chronic kidney disease stage 3 subtype: stage 3a (GFR 45-59) Qualified Code(s): N18.31 - Chronic kidney disease, stage 3a Status: Acute (5) Anemia in chronic kidney disease: Qualifiers: Chronic kidney disease stage: stage 3 (moderate) Chronic kidney disease stage 3 subtype: stage 3b (GFR 30-44) Qualified Code(s): N18.32 - Chronic kidney disease, stage 3b; D63.1 - Anemia in chronic kidney disease Status: Acute Plan Essentially, transient bradycardia episodes during sleep and during straining on toilet. Otherwise, her heart rate is well within the normal range. She has been on beta-blockers which are being held. She has got no symptoms from the bradycardia itself. No specific treatment for the transient bradycardia episodes. If the blood pressure rebounds, may resume the beta-nichelle at a smaller dose. Slight troponin elevation most likely related to hypertension in the background of chronic kidney disease. Per history she has coronary disease but unknown details. However, there is no evidence of ACS. Otherwise, management of hypertension, chronic kidney disease and anemia. Of note, she seems to be on both aspirin and Eliquis. There are no recent cardiac interventions and hence no absolute need for aspirin and okay to just stay on Eliquis. However, patient states she was advised to take both. Procedures Date of Service Date of Service: 08/17/24
[2024-08-17] MEDS: PEG 3350/Na Sulf,Bicarb,Cl/KCL 4,000 ML SOLN.RECON 4000 ML PO (15:16)
[2024-08-17 16:34] VITALS: BP 120/50; PULSE 60; RESP 18; TEMP 36.8; O2SAT 96
[2024-08-17 19:22] VITALS: BP 148/68; PULSE 63; RESP 15; TEMP 36.1; O2SAT 96
--- NOTE | 2024-08-17 20:06 | MHC.PIE ---
Addendum entered by Sandy Frost RN 08/17/24 20:26: pt offered 10 mg oxy for pain. pt wants 5 mg for pt given 5 mg oxy earlier by previous rn, now pt reports i'm not drug addict . pt being accusatory at this time. will cont to monitor Original Note: p; pt c/o apin 10/10 to rt wrist - arthritic pain. prn oxy 5mg q6 given by previous rn at 1747. per pt, takes 10 mg at home. i; dr mendoza notified. new order oxy 10mg po e; will cont to monitor
[2024-08-17] MEDS: oxyCODONE HCl Immed Release 5 MG TABLET 10 MG PO (20:19)
[2024-08-18] VITALS (10 sets, daily range): BP systolic 130–166; BP diastolic 48–82; PULSE 63–88; RESP 12–20; TEMP 36.1–37.3; O2SAT 93–97
[2024-08-18] MEDS: oxyCODONE HCl Immed Release 5 MG TABLET 10 MG PO (04:52)
[2024-08-18] MEDS: Omeprazole/Na Bicarb Oral Susp 20 MG/10 ML UD Cup PO ×2 (04:52→17:23)
[2024-08-18 05:50] LABS: Hematocrit 24.3 % (37.0-47.0); Hemoglobin 7.1 g/dl (12.0-16.0); Mean Corpuscular HGB Conc 29.2 g/dl (31.0-35.0); Mean Corpuscular Hemoglobin 26.3 pg (27.0-33.0); Mean Corpuscular Volume 90.0 fL (80.0-98.0); NRBC Abs Auto 0.020 X10*3/uL (0.0-0.012); NRBC Pct Auto 0.3 /100WBC (0.0-0.2); Platelet Count 334 X10*3/uL (160-400); Red Blood Count 2.70 X10*6/uL (4.20-5.50); White Blood Count 7.6 X10*3/uL (4.8-10.8)
[2024-08-18 06:06] LABS: Anion Gap 15 (12-20); Blood Urea Nitrogen 45 mg/dL (9-16); Calcium 8.5 mg/dL (8.4-10.2); Carbon Dioxide 28 mmol/L (22-29); Chloride 101 mmol/L (96-108); Creatinine Clr Calc Pharmacy 19.5; Estimated Glomerular Filt Rate 18; Potassium 3.7 mmol/L (3.3-5.1); Sodium 140 mmol/L (135-145)
[2024-08-18] MEDS: 0.9 % Sodium Chloride Flush 3 ML SYRINGE IVFLUSH ×2 (08:09→21:13)
[2024-08-18 08:24] LABS: Magnesium 2.2 mg/dL (1.6-2.6)
[2024-08-18] MEDS: Potassium Chloride/H20 10 MEQ/100 ML PIGGYBACK 100 MEQ IV ×4 (08:40→13:43)
--- NOTE | 2024-08-18 08:45 | P.PNNP_ITS ---
Subjective Subjective Date of Service: 08/18/24 Interval history: following for uncontrolled hypertension. Pt with CKD3 at baseline, pt of Dr Boyer. she states she is doing ok today. Ongoing fatigue and constipation. Ongoing distress over personal situation at home- mother is on hospice. Denies other concerns/complaints today. Physical Exam 2 Vital Signs: Vital Signs: Last Vital Signs Temp 97.5 F 08/18/24 07:55 Pulse 80 08/18/24 07:55 Resp 16 08/18/24 07:55 BP 130/48 L 08/18/24 07:55 Pulse Ox 97 08/18/24 07:55 O2 Del Method Room Air 08/18/24 07:55 BMI result Body Mass Index 24.0 Const: General: comfortable and no acute distress Resp: Effort & Inspection: normal respiratory effort and able to speak in complete sentences Auscultation: clear to auscultation bilaterally Cardio: Rate: regular rate Rhythm: regular rhythm Heart sounds: S1 normal heart sound present and S2 normal heart sound present GI: Palpation (GI): Soft to palpation and nontender : General: Yes no CVA tenderness Back/Spine/Pelvis: Back: no CVA tenderness Skin: Rashes: no rashes Extrem: General: Yes edema (+2 BLE edema, pitting) Objective Data Labs 08/18/24 05:31 08/18/24 05:31 Labs: Laboratory Results - last 24 hr 08/18/24 08/18/24 05:31 07:56 WBC 7.6 RBC 2.70 L Hgb 7.1 L Hct 24.3 L MCV 90.0 MCH 26.3 L MCHC 29.2 L RDW 18.1 H Plt Count 334 D MPV 9.8 Absolute Nucleated RBC 0.020 H Nucleated RBC % (auto) 0.3 H Sodium 140 Potassium 3.7 Chloride 101 Carbon Dioxide 28 Anion Gap 15 BUN 45 H Creatinine 2.59 H Estim Creat Clear Calc 19.5 Estimated GFR 18 Random Glucose 131 H Calcium 8.5 D Magnesium 2.2 Blood Type B Positive Antibody Screen POSITIVE Antibody Identification Anti-K Crossmatch (AHG) See Detail Procedures Date of Service Date of Service: 08/18/24 Assessment & Plan Assessment and plan (1) Hypertension: Status: Acute (2) CKD (chronic kidney disease) stage 3, GFR 30-59 ml/min: Status: Acute Plan Hypertensive urgency after holding diuretic due to nausea/malaise. Improving. patient has coronary artery disease and heart failure, LE edema is worsening disucssed importance of maintaining proper fluid balance, patient appears fluid overloaded and discussed my concerns about continuing to go without a diuretic, discussed fluid overload may continue to worsen and affect her breathing patient agreeable to re-start lasix at a lower dose- 20mg BID for now. Discussed will likely require a higher dose but can start with this for now as this is what patient is willing to start with Will continue remainder of antihypertensive regimen. Patient's blood pressures are better controlled- 130/48 this a.m. Patient declines outpatient follow up this week in nephrology office- states she needs to be with her dying mother this week. Discussed office will call to schedule for ~2 weeks CKD remains at baseline avoid nephrotoxic substances Continue supportive care Discussed with Dr Schumacher. Time Spent With Patient Time: Total time managing care of this patient today ____ minutes. Progress Note: Quality Stroke Does the patient have a stroke diagnosis?: No Reason for No Anti-thrombotic by Day Two: N/A - Med Ordered
[2024-08-18] MEDS: Lactated Ringers 1,000 ML 80 ML IVCONT (09:12)
--- NOTE | 2024-08-18 11:37 | PC.NURSE ---
telepack in pocket
[2024-08-18] MEDS: Lactated Ringers 1,000 ML 50 ML IVCONT (11:52)
--- NOTE | 2024-08-18 12:07 | MHC.SHP ---
Pre-Procedural Eval Section A - 24 Hr Update-Section A only Date of Service: 08/18/24 The patient is an INPATIENT: Yes Changes since office visit: Yes Patient answered all questions; No Cold of Flu in the past 2 weeks, No New Medical Problems and No Changes in Medication The patient has been examined within 24 hours of the surgical procedure. The History & Physical has been completed within 30 days and I have reviewed it.: Yes Section B - Complete if H&P > 30 days Chief Complaint: Nausea/abd pain Allergies: Allergies Allergy/AdvReac Type Severity Reaction Status Date / Time codeine Allergy Intermediate Nausea Verified 08/13/24 11:59 latex Allergy Intermediate Rash Verified 08/13/24 11:59 hydrochlorothiazide Allergy Unknown Unknown Verified 08/13/24 11:59 morphine Allergy Unknown Nausea Verified 08/13/24 11:59 SHAYY Inhibitors AdvReac Unknown Unknown Verified 08/13/24 11:59 Plan Diagnosis/Plan: Unchanged I have reviewed the history and physical and performed a pertinent physical examination on my patient. No changes have occurred unless specified. Time Spent With Patient Time: Total time managing care of this patient today ____ minutes.
--- NOTE | 2024-08-18 12:10 | P.PNIM_ITS ---
Subjective Subjective Date of Service: 08/18/24 Interval History: htn Review of Systems had 4 beat nsvt no new c/o going for egd today Physical Exam 2 Vital Signs: Vital Signs: Last Vital Signs Temp 98.5 F 08/18/24 11:27 Pulse 88 08/18/24 11:27 Resp 20 08/18/24 11:27 BP 143/76 H 08/18/24 11:27 Pulse Ox 97 08/18/24 11:27 O2 Del Method Room Air 08/18/24 11:27 BMI result Body Mass Index 24.0 Appearance: Alert.? Oriented X3.? cvs: rrr, [id number] . res: clear to auscultation ,no rhonchii or wheezing abd: no rebound or guarding ,nt, bs present. ext pulses present , no cyanosis . neuro: axo3 , nonfocal. Objective Data Active Medications Acetaminophen (Acetaminophen 325 Mg Tablet) 650 mg PO Q6H PRN PRN Reason: Pain, Mild 1-3,fever,headache Albuterol/Ipratropium (Albuterol/Iprat 2.5/0.5mg 3 Ml Ampul.Neb) 3 ml INHALE Q4H PRN PRN Reason: Shortness of Breath/Wheezing Amlodipine Besylate (Amlodipine Besylate 5 Mg Tablet) 5 mg PO BID [facility]; Protocol Last Admin: 08/18/24 09:03 Dose: Not Given Documented By: LAURA Non-Admin Reason: Physician Held Med Apixaban (Apixaban 2.5 Mg Tablet) 2.5 mg PO BID [facility] On Hold: 08/15/24 13:12 Last Admin: 08/15/24 07:55 Dose: Not Given Documented By: KELLEE Non-Admin Reason: Patient Refused Ascorbic Acid (Ascorbic Acid 500 Mg Tablet) 1,000 mg PO MOFR [facility] Last Admin: 08/15/24 23:25 Dose: Not Given Documented By: YUNIOR Non-Admin Reason: pt declined Aspirin (Aspirin 81 Mg Tab.Chew) 81 mg PO DAILY [facility] On Hold: 08/16/24 09:49 Last Admin: 08/16/24 08:12 Dose: 81 mg Documented By: JIMMY Bisacodyl (Bisacodyl 10 Mg Supp.Rect) [address] DAILY [facility] Last Admin: 08/18/24 09:04 Dose: Not Given Documented By: LAURA Non-Admin Reason: NPO Calcium Carbonate (Calcium Carbonate 750 Mg Tab.Chew) 750 mg PO Q4H PRN PRN Reason: Heartburn Last Admin: 08/15/24 06:22 Dose: 750 mg Documented By: VIOLETA Clonidine HCl (Clonidine Hcl 0.1 Mg Tablet) 0.1 mg PO TID [facility]; Protocol Last Admin: 08/18/24 09:04 Dose: Not Given Documented By: LAURA Non-Admin Reason: Physician Held Med Cyanocobalamin (Cyanocobalamin (Vitamin B-12) 500 Mcg Tablet) 1,000 mcg PO DAILY [facility] Last Admin: 08/18/24 09:04 Dose: Not Given Documented By: LAURA Non-Admin Reason: NPO Docusate Sodium (Docusate Sodium 100 Mg/10 Ml Liquid) 100 mg PO BID [facility] Last Admin: 08/18/24 09:04 Dose: Not Given Documented By: LAURA Non-Admin Reason: NPO Furosemide (Furosemide 20 Mg Tablet) 20 mg PO BID [facility]; Protocol Potassium Chloride (Potassium Chloride/H20) 10 meq in 100 mls @ 100 mls/hr IV Q1H [facility] Stop: 08/18/24 12:14 Last Infusion: 08/18/24 12:07 Dose: Infused Documented By: LAURA Lactated Ringer's (Lr) 1,000 mls @ 80 mls/hr IVCONT .[id number] [facility] Last Admin: 08/18/24 09:12 Dose: 80 mls/hr Documented By: DUKE Lactated Ringer's (Lr) 1,000 mls @ 50 mls/hr IVCONT .Q20H [facility] Last Admin: 08/18/24 11:52 Dose: 50 mls/hr Documented By: HARISH Isosorbide Mononitrate (Isosorbide Mononitrate 30 Mg Tab.Er.24h) 90 mg PO DAILY [facility]; Protocol Last Admin: 08/18/24 09:04 Dose: Not Given Documented By: LAURA Non-Admin Reason: Physician Held Med Lorazepam (Lorazepam 0.5 Mg Tablet) 0.5 mg PO Q8H PRN PRN Reason: Anxiety Last Admin: 08/17/24 01:13 Dose: 0.5 mg Documented By: YUNIOR Magnesium Hydroxide (Milk Of Magnesia 30 Ml Oral.Susp) 30 ml PO DAILY PRN PRN Reason: Constipation Last Admin: 08/16/24 08:13 Dose: 30 ml Documented By: JIMMY Melatonin (Melatonin 3 Mg Tablet) 6 mg PO BEDTIME PRN PRN Reason: Insomnia Last Admin: 08/14/24 00:48 Dose: 6 mg Documented By: RITA Omeprazole (Omeprazole/Na Bicarb Oral Susp 20 Mg/10 Ml Ud Cup) 20 mg PO BID@0630,1630 [facility] Last Admin: 08/18/24 04:52 Dose: 20 mg Documented By: MARIANNA Ondansetron HCl (Ondansetron Hcl 4 Mg/2 Ml Vial) 4 mg IVPUSH Q8H PRN PRN Reason: Nausea and Vomiting Last Admin: 08/17/24 08:28 Dose: 4 mg Documented By: JIMMY Oxycodone HCl (Oxycodone Hcl Immed Release 5 Mg Tablet) 10 mg PO Q6H PRN PRN Reason: Pain, Severe (Pain Scale 7-10) Last Admin: 08/18/24 04:52 Dose: 10 mg Documented By: MARIANNA Polyethylene Glycol (Polyethylene Glycol 3350 17 Gm Powd.Pack) 17 gm PO DAILY [facility] Last Admin: 08/18/24 09:39 Dose: Not Given Documented By: LAURA Non-Admin Reason: NPO Sodium Chloride (0.9 % Sodium Chloride Flush 3 Ml Syringe) 3 ml IVFLUSH QSHIFT [facility] Last Admin: 08/18/24 08:09 Dose: 3 ml Documented By: DUKE Labs 08/18/24 05:31 08/18/24 05:31 Labs: Laboratory Results - last 24 hr 08/18/24 08/18/24 05:31 07:56 MCV 90.0 MCH 26.3 L MCHC 29.2 L RDW 18.1 H Plt Count 334 D MPV 9.8 Absolute Nucleated RBC 0.020 H Nucleated RBC % (auto) 0.3 H Anion Gap 15 Estim Creat Clear Calc 19.5 Estimated GFR 18 Random Glucose 131 H Calcium 8.5 D Magnesium 2.2 Blood Type B Positive Antibody Screen POSITIVE Antibody Identification Anti-K Crossmatch (AHG) See Detail Assessment and Plan (1) Hypertension: Status: Acute (2) CKD (chronic kidney disease) stage 3, GFR 30-59 ml/min: Status: Acute Assessment and Plan: 74-year-old female with history of hypertension, CAD, PCI with stents 2018, PVD, 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 JUANA on iron infusions weekly, Graves disease, HFpEF (grade 1 diastolic dysfunction), mild MVR, DMII, osteoarthritis, GI bleed, chronic kidney disease stage 3 is being admitted for intractable nausea with notable increase in patient's troponin level. Patient has underlying chronic kidney disease for patient is currently at baseline. 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 Intractable nausea Antiemetics p.r.n. to include Zofran and Reglan, QTC normal ct abomen :Incidental splenic lesion on CT scan,Differentials include infection, inflammation versus neoplasm - patient underwent colonoscopy at [facility] in April of 2024 and was told she has diverticulosis.-no leukocytosis, fever abdominal pain, normal Lactate 1.6 Stool for occult ordered noting anemia, likely secondary to renal disease plan: Gi eval -continue PPI, antiemetic, hold Eliquis possible EGD today and possible capsule study further use of eliquis after above studies . Episode of bradycardia heart rate is in 30s for brief moment(08/14), then 08/17 brabycardic with some junctional beats asymptomatic tsh normal,Patient refused Coreg, metoprolol stopped due to bradycardia Cardiology evaluation:transient bradycardia episodes during sleep and during straining on toilet. Otherwise, her heart rate is well within the normal range. She has been on beta-blockers which are being held. She has got no symptoms from the bradycardia itself. No specific treatment for the transient bradycardia episodes. If the blood pressure rebounds, may resume the beta-nichelle at a smaller dose. Slight troponin elevation most likely related to hypertension in the background of chronic kidney disease. Per history she has coronary disease but unknown details. However, there is no evidence of ACS. Otherwise, management of hypertension, chronic kidney disease and anemia. Of note, she seems to be on both aspirin and Eliquis. There are no recent cardiac interventions and hence no absolute need for aspirin and okay to just stay on Eliquis. However, patient states she was advised to take both. Htn: Low-salt diet, currently on clears amlodipine 5mg po bid, Imdur 90 mg qd, clonidine, stopped Coreg and metoprolol . Elevated troponin Troponins flat(likely related to uncontrolled htn). Last echo 02/06/2024: ef 58%,[id number] , no new changes. had episode of bradycardia as above . plan: stop metoprolol /coreg. d/w cardiology: mild elevated trops -likely demand in setting of htn/ckd. patient is asymptomatic. Mild hypernatremia :possible sec to dec po intake improved with po intake and hydration. HFrEF, grade 1 diastolic failure BNP elevated Daily weights Low Na diet Pt recently increased on her lasix to 40 BID, patient is delining to start it for now. HX DVT/PE hold eliquis due to egd in am. Pt has upcoming appt with [facility] as outpatient Anemia acute on chronic, JUANA H/H stable: 7.1/24.3 (seems hb around 8 atleast), no indication for transfusion Patient did not receive her weekly iron infusion this week due to placing mother and hospice Monitor H&H Chronic kidney disease stage 3 B-Renal function appears to be baseline Holding Lasix, current dose 40 mg b.i.d. Patient has received IV fluids in the emergency department and does not have any indication of volume overload or hypoxia UA with significant proteinuria plan: Avoid hypotension,Avoid nephrotoxic meds including NSAIDs nephrology eval-added lasix patient agrees. Hx of Grave's disease tsh normal Pt otherwise asymptomatic R knee OA patient takes oxycodone usually 10 mg as needed q.6 but has reduced the dose to 5,Tylenol PRN Varicose veins of right lower extremity : patient needs to follow up with dr mora's office outpatient (d/w dr mora). DVT prophylaxis: Eliquis on hold -need egd. PPI prophylaxis: Omeprazole ongoing need: Persistent nausea , abdominal abdominal CT, uncontrolled hypotension, bradycardia-need tele monitoring, renal function electrolyte monitoring, unable to take p.o. yet, need EGD next week. Quality Stroke Does the patient have a stroke diagnosis?: No Reason for No Anti-thrombotic by Day Two: N/A - Med Ordered VTE Prior VTE?: No VTE Risk Level:: Medical - moderate - high VTE Device Contraindication: N/A - Device Ordered VTE Drug Contraindication: N/A - Med Ordered
--- NOTE | 2024-08-18 12:24 | P.CONAN_ITS ---
HPI - Anesthesia Eval Consult details Narrative: EGD - recurrent anemia PMFSH Active Problems Active Problems: All Active Problems Situational depression (Acute) Bradycardia (Acute) Osteoarthritis (Acute) Intractable nausea (Acute) Hypertensive urgency (Acute) Symptomatic anemia (Acute) Varicose veins of right lower extremity with inflammation (Acute) CAD (coronary artery disease) (Acute) PVD (peripheral vascular disease) (Acute) Pulmonary embolism (Chronic) Edema (Acute) Anemia (Acute) Secondary hyperparathyroidism (of renal origin) (Acute) Right leg swelling (Acute) Acute on chronic anemia (Acute) Osteoarthritis of right knee (Acute) Knee pain, right (Acute) Gout (Acute) Unintentional weight loss (Acute) Dyspnea (Acute) GIB (gastrointestinal bleeding) (Acute) Hyperkalemia (Acute) Iron deficiency (Acute) Hypertension (Acute) CKD (chronic kidney disease) stage 3, GFR 30-59 ml/min (Acute) Anemia in chronic kidney disease (Acute) Past Medical History Medical History (Updated 08/18/24 @ 10:57 by Isa Awan NP) Graves disease CAD (coronary artery disease) Osteoarthritis Hx of transfusion of packed red blood cells Diet-controlled diabetes mellitus Pulmonary embolism DVT (deep venous thrombosis) Anemia in chronic kidney disease Hypertension CKD (chronic kidney disease) stage 3, GFR 30-59 ml/min Functional capacity: independent ambulation Family History Family History Maternal Grandfather Stomach cancer Family history of problems with anesthesia: No Surgical History Surgical History Hx of heart artery stent History of partial hysterectomy History of Problems with Anesthesia: No Social History Social History Household Members: None Housing: Apartment Do you presently have visiting nurse or other home services: No Alcohol intake: never Patient Tobacco Use Status: Former Tobacco user Tobacco use type: Cigarette Smoked in Last 30 Days: No Use of substances other than those prescribed or required for medical reasons: No Currently Displaying Signs/Symptoms of Drug Intoxication Withdrawal: No Have you been hit, kicked, punched, or otherwise hurt by someone within the past year? If so, by whom?: No Do you feel safe in your current relationship?: No Current Relationship Is there a partner from a previous relationship who is making you feel unsafe now?: No Are you made to feel afraid or neglected: No Advance Directives: No Advance Directives Information Provided: Yes Do you have a plan to hurt others: No Plan Recently lost weight without trying: No Nutrition Risks: No Nutritional Risk Patient : No : No Poor oral hygiene: No service: No Current occupational status: retired Meds Allergies Allergy/AdvReac Type Severity Reaction Status Date / Time codeine Allergy Intermediate Nausea Verified 08/13/24 11:59 latex Allergy Intermediate Rash Verified 08/13/24 11:59 hydrochlorothiazide Allergy Unknown Unknown Verified 08/13/24 11:59 morphine Allergy Unknown Nausea Verified 08/13/24 11:59 SHAYY Inhibitors AdvReac Unknown Unknown Verified 08/13/24 11:59 Active Medications: Current Medications Acetaminophen (Acetaminophen 325 Mg Tablet) 650 mg PO Q6H PRN PRN Reason: Pain, Mild 1-3,fever,headache Albuterol/Ipratropium (Albuterol/Iprat 2.5/0.5mg 3 Ml Ampul.Neb) 3 ml INHALE Q4H PRN PRN Reason: Shortness of Breath/Wheezing Amlodipine Besylate (Amlodipine Besylate 5 Mg Tablet) 5 mg PO BID [facility]; Protocol Last Admin: 08/18/24 09:03 Dose: Not Given Apixaban (Apixaban 2.5 Mg Tablet) 2.5 mg PO BID [facility] On Hold: 08/15/24 13:12 Last Admin: 08/15/24 07:55 Dose: Not Given Ascorbic Acid (Ascorbic Acid 500 Mg Tablet) 1,000 mg PO MOFR [facility] Last Admin: 08/15/24 23:25 Dose: Not Given Aspirin (Aspirin 81 Mg Tab.Chew) 81 mg PO DAILY [facility] On Hold: 08/16/24 09:49 Last Admin: 08/16/24 08:12 Dose: 81 mg Bisacodyl (Bisacodyl 10 Mg Supp.Rect) 10 mg VT DAILY [facility] Last Admin: 08/18/24 09:04 Dose: Not Given Calcium Carbonate (Calcium Carbonate 750 Mg Tab.Chew) 750 mg PO Q4H PRN PRN Reason: Heartburn Last Admin: 08/15/24 06:22 Dose: 750 mg Clonidine HCl (Clonidine Hcl 0.1 Mg Tablet) 0.1 mg PO TID [facility]; Protocol Last Admin: 08/18/24 09:04 Dose: Not Given Cyanocobalamin (Cyanocobalamin (Vitamin B-12) 500 Mcg Tablet) 1,000 mcg PO DAILY [facility] Last Admin: 08/18/24 09:04 Dose: Not Given Docusate Sodium (Docusate Sodium 100 Mg/10 Ml Liquid) 100 mg PO BID [facility] Last Admin: 08/18/24 09:04 Dose: Not Given Furosemide (Furosemide 20 Mg Tablet) 20 mg PO BID [facility]; Protocol Lactated Ringer's (Lr) 1,000 mls @ 80 mls/hr IVCONT .[id number] [facility] Last Admin: 08/18/24 09:12 Dose: 80 mls/hr Lactated Ringer's (Lr) 1,000 mls @ 50 mls/hr IVCONT .Q20H [facility] Last Admin: 08/18/24 11:52 Dose: 50 mls/hr Isosorbide Mononitrate (Isosorbide Mononitrate 30 Mg Tab.Er.24h) 90 mg PO DAILY [facility]; Protocol Last Admin: 08/18/24 09:04 Dose: Not Given Lorazepam (Lorazepam 0.5 Mg Tablet) 0.5 mg PO Q8H PRN PRN Reason: Anxiety Last Admin: 08/17/24 01:13 Dose: 0.5 mg Magnesium Hydroxide (Milk Of Magnesia 30 Ml Oral.Susp) 30 ml PO DAILY PRN PRN Reason: Constipation Last Admin: 08/16/24 08:13 Dose: 30 ml Melatonin (Melatonin 3 Mg Tablet) 6 mg PO BEDTIME PRN PRN Reason: Insomnia Last Admin: 08/14/24 00:48 Dose: 6 mg Omeprazole (Omeprazole/Na Bicarb Oral Susp 20 Mg/10 Ml Ud Cup) 20 mg PO BID@0630,1630 [facility] Last Admin: 08/18/24 04:52 Dose: 20 mg Ondansetron HCl (Ondansetron Hcl 4 Mg/2 Ml Vial) 4 mg IVPUSH Q8H PRN PRN Reason: Nausea and Vomiting Last Admin: 08/17/24 08:28 Dose: 4 mg Oxycodone HCl (Oxycodone Hcl Immed Release 5 Mg Tablet) 10 mg PO Q6H PRN PRN Reason: Pain, Severe (Pain Scale 7-10) Last Admin: 08/18/24 04:52 Dose: 10 mg Polyethylene Glycol (Polyethylene Glycol 3350 17 Gm Powd.Pack) 17 gm PO DAILY [facility] Last Admin: 08/18/24 09:39 Dose: Not Given Sodium Chloride (0.9 % Sodium Chloride Flush 3 Ml Syringe) 3 ml IVFLUSH QSHIFT [facility] Last Admin: 08/18/24 08:09 Dose: 3 ml Home Medications ?Medication ?Instructions ?Recorded ?Confirmed ?Last Taken ?Type apixaban 2.5 mg tablet (Eliquis) 2.5 mg PO BID 3 08/13/24 08/12/24 History ascorbate calcium (vitamin C) 500 1 g PO MOFR 02/27/24 08/13/24 08/11/24 History mg tablet mecobalamin (vitamin B12) 1,000 1,000 mcg PO DAILY 10/1308/13/24 08/12/24 History mcg chewable tablet acetaminophen 500 mg tablet 1,500 mg PO DAILY PRN Pain 05/08/24 08/13/24 Unknown History clonidine HCl 0.1 mg tablet 0.1 mg PO TID 05/08/2408/12/24 History aspirin 81 mg chewable tablet 1 tab PO DAILY 08/13/24 08/13/24 08/12/24 History furosemide 20 mg tablet 20 mg PO TID 08/13/2408/12/24 History metoprolol tartrate 50 mg tablet 100 mg PO BID 5 08/13/24 08/12/24 History Exam Height,Weight and Vital Signs: Height 5 ft 8 in Weight 71.7 kg Last Vital Signs Temp 98.5 F 08/18/24 11:27 Pulse 88 08/18/24 11:27 Resp 20 08/18/24 11:27 BP 143/76 H 08/18/24 11:27 Pulse Ox 97 08/18/24 11:27 O2 Del Method Room Air 08/18/24 11:27 Pertinent Lab Results Pertinent Lab Results: Laboratory Tests 08/13/24 08/13/24 08/13/24 12:32 13:49 16:22 WBC 6.6 RBC 3.00 L Hgb 8.0 L Hct 28.2 L MCV 94.0 MCH 26.7 L MCHC 28.4 L RDW 19.5 H Plt Count 463 H D MPV 9.1 L Immature Gran % (Auto) 0.3 Neut % (Auto) 88.0 H Lymph % (Auto) 7.0 L Cooper % (Auto) 4.2 Eos % (Auto) 0.0 Baso % (Auto) 0.5 Lymph # (Auto) 0.5 L Cooper # (Auto) 0.3 Eos # (Auto) 0.0 Baso # (Auto) 0.0 Abs Immat Gran (auto) 0.02 Absolute Neuts (auto) 5.8 Absolute Nucleated RBC 0.020 H Nucleated RBC % (auto) 0.3 H Hold Purple Top Sodium 149 H Potassium 4.2 Chloride 113 H Carbon Dioxide 25 Anion Gap 15 BUN 60 H Creatinine 2.36 H Estim Creat Clear Calc 21.3 Estimated GFR 20 Random Glucose 157 H Estimat Average Glucose Hemoglobin A1c % Lactic Acid Calcium 9.8 D Magnesium Total Bilirubin 0.3 Direct Bilirubin 0.2 AST 19 ALT 8 Alkaline Phosphatase 120 H Troponin I High Sens 43.1 H D Total Protein 7.5 Albumin 3.4 L Lipase 47 TSH Free T4 Urine Color Straw Urine Appearance Clear Urine pH 6.0 Ur Specific [place] 1.020 Urine Protein 300 (3+) H Urine Glucose (UA) Negative Urine Ketones Negative Urine Blood Small (1+) H Urine Nitrite Negative Ur Leukocyte Esterase Negative Urine RBC 3-5 H Urine WBC 0-5 Ur Squamous Epith Cells 0-2 Urine Bacteria None Seen Hyaline Casts 0-2 Respiratory Panel Garcia Adenovirus (Rapid PCR) B.pert (TEM-PCR) B.parapertussis DNA PCR C. pneumoniae DNA (PCR) Coronavirus OC43 (PCR) Coronavirus HKU1 (PCR) Coronavirus 229E (PCR) Coronavirus NL63 (PCR) Human Metapneumovir PCR Influenza A (RT-PCR) Influenza A (H1) PCR Influ A (H1/09) PCR Influenza A (H3) PCR Influenza B (RT-PCR) M. pneumoniae (PCR) Parainfluenza 1 (PCR) Parainfluenza 2 (PCR) Parainfluenza 3 (PCR) Parainfluenza 4 (PCR) RSV (PCR) Entero/Rhino (PCR) SARS-CoV-2 RNA (RT-PCR) Blood Type Antibody Screen Antibody Identification Crossmatch (AHG) 08/13/24 08/13/24 08/14/24 19:55 22:39 01:09 WBC RBC Hgb Hct MCV MCH MCHC RDW Plt Count MPV Immature Gran % (Auto) Neut % (Auto) Lymph % (Auto) Cooper % (Auto) Eos % (Auto) Baso % (Auto) Lymph # (Auto) Cooper # (Auto) Eos # (Auto) Baso # (Auto) Abs Immat Gran (auto) Absolute Neuts (auto) Absolute Nucleated RBC Nucleated RBC % (auto) Hold Purple Top Sodium Potassium Chloride Carbon Dioxide Anion Gap BUN Creatinine Estim Creat Clear Calc Estimated GFR Random Glucose Estimat Average Glucose Hemoglobin A1c % Lactic Acid 1.6 Calcium Magnesium 2.5 Total Bilirubin Direct Bilirubin AST ALT Alkaline Phosphatase Troponin I High Sens 70.5 H* D 85.4 H* Total Protein Albumin Lipase TSH 1.07 Free T4 1.01 Urine Color Urine Appearance Urine pH Ur Specific [place] Urine Protein Urine Glucose (UA) Urine Ketones Urine Blood Urine Nitrite Ur Leukocyte Esterase Urine RBC Urine WBC Ur Squamous Epith Cells Urine Bacteria Hyaline Casts Respiratory Panel Garcia Adenovirus (Rapid PCR) B.pert (TEM-PCR) B.parapertussis DNA PCR C. pneumoniae DNA (PCR) Coronavirus OC43 (PCR) Coronavirus HKU1 (PCR) Coronavirus 229E (PCR) Coronavirus NL63 (PCR) Human Metapneumovir PCR Influenza A (RT-PCR) Influenza A (H1) PCR Influ A (H1/09) PCR Influenza A (H3) PCR Influenza B (RT-PCR) M. pneumoniae (PCR) Parainfluenza 1 (PCR) Parainfluenza 2 (PCR) Parainfluenza 3 (PCR) Parainfluenza 4 (PCR) RSV (PCR) Entero/Rhino (PCR) SARS-CoV-2 RNA (RT-PCR) Blood Type Antibody Screen Antibody Identification Crossmatch (AHG) 08/14/24 08/14/24 08/14/24 05:47 12:11 16:36 WBC 6.8 RBC 2.88 L Hgb 7.7 L Hct 26.6 L MCV 92.4 MCH 26.7 L MCHC 28.9 L RDW 19.3 H Plt Count 451 H MPV 9.3 L Immature Gran % (Auto) 0.3 Neut % (Auto) 77.0 H Lymph % (Auto) 12.6 L Cooper % (Auto) 9.4 Eos % (Auto) 0.3 Baso % (Auto) 0.4 Lymph # (Auto) 0.9 L Cooper # (Auto) 0.6 Eos # (Auto) 0.0 Baso # (Auto) 0.0 Abs Immat Gran (auto) 0.02 Absolute Neuts (auto) 5.3 Absolute Nucleated RBC 0.020 H Nucleated RBC % (auto) 0.3 H Hold Purple Top Sodium 148 H Potassium 4.4 Chloride 113 H Carbon Dioxide 24 Anion Gap 15 BUN 53 H Creatinine 2.36 H Estim Creat Clear Calc 21.3 Estimated GFR 20 Random Glucose 126 H Estimat Average Glucose 114 Hemoglobin A1c % 5.6 Lactic Acid Calcium 9.6 Magnesium Total Bilirubin 0.3 Direct Bilirubin AST 20 ALT < 6 Alkaline Phosphatase 92 Troponin I High Sens 69.7 H* Total Protein 6.7 Albumin 2.9 L Lipase TSH Free T4 Urine Color Yellow Urine Appearance Clear Urine pH 5.0 Ur Specific [place] 1.020 Urine Protein >=1000 (4+) H Urine Glucose (UA) Negative Urine Ketones Negative Urine Blood Negative Urine Nitrite Negative Ur Leukocyte Esterase Negative Urine RBC 0-2 Urine WBC 0-5 Ur Squamous Epith Cells 3-5 Urine Bacteria None Seen Hyaline Casts 11-20 Respiratory Panel Garcia Adenovirus (Rapid PCR) B.pert (TEM-PCR) B.parapertussis DNA PCR C. pneumoniae DNA (PCR) Coronavirus OC43 (PCR) Coronavirus HKU1 (PCR) Coronavirus 229E (PCR) Coronavirus NL63 (PCR) Human Metapneumovir PCR Influenza A (RT-PCR) Influenza A (H1) PCR Influ A (H1/09) PCR Influenza A (H3) PCR Influenza B (RT-PCR) M. pneumoniae (PCR) Parainfluenza 1 (PCR) Parainfluenza 2 (PCR) Parainfluenza 3 (PCR) Parainfluenza 4 (PCR) RSV (PCR) Entero/Rhino (PCR) SARS-CoV-2 RNA (RT-PCR) Blood Type Antibody Screen Antibody Identification Crossmatch (AHG) 08/14/24 08/15/24 08/16/24 18:30 05:41 06:12 WBC RBC Hgb 7.5 L Hct 25.8 L MCV MCH MCHC RDW Plt Count MPV Immature Gran % (Auto) Neut % (Auto) Lymph % (Auto) Cooper % (Auto) Eos % (Auto) Baso % (Auto) Lymph # (Auto) Cooper # (Auto) Eos # (Auto) Baso # (Auto) Abs Immat Gran (auto) Absolute Neuts (auto) Absolute Nucleated RBC Nucleated RBC % (auto) Hold Purple Top SEE NOTE Sodium 144 Potassium 4.6 Chloride 109 H Carbon Dioxide 24 Anion Gap 16 BUN 52 H Creatinine 2.57 H Estim Creat Clear Calc 19.6 Estimated GFR 18 Random Glucose 110 Estimat Average Glucose Hemoglobin A1c % Lactic Acid Calcium 9.4 Magnesium Total Bilirubin Direct Bilirubin AST ALT Alkaline Phosphatase Troponin I High Sens Total Protein Albumin Lipase TSH Free T4 Urine Color Urine Appearance Urine pH Ur Specific [place] Urine Protein Urine Glucose (UA) Urine Ketones Urine Blood Urine Nitrite Ur Leukocyte Esterase Urine RBC Urine WBC Ur Squamous Epith Cells Urine Bacteria Hyaline Casts Respiratory Panel Garcia See Note Adenovirus (Rapid PCR) Not Detected B.pert (TEM-PCR) Not Detected B.parapertussis DNA PCR Not Detected C. pneumoniae DNA (PCR) Not Detected Coronavirus OC43 (PCR) Not Detected Coronavirus HKU1 (PCR) Not Detected Coronavirus 229E (PCR) Not Detected Coronavirus NL63 (PCR) Not Detected Human Metapneumovir PCR Not Detected Influenza A (RT-PCR) Not Detected Influenza A (H1) PCR Not Detected Influ A (H1/09) PCR Not Detected Influenza A (H3) PCR Not Detected Influenza B (RT-PCR) Not Detected M. pneumoniae (PCR) Not Detected Parainfluenza 1 (PCR) Not Detected Parainfluenza 2 (PCR) Not Detected Parainfluenza 3 (PCR) Not Detected Parainfluenza 4 (PCR) Not Detected RSV (PCR) Not Detected Entero/Rhino (PCR) Not Detected SARS-CoV-2 RNA (RT-PCR) Not Detected Blood Type Antibody Screen Antibody Identification Crossmatch (AHG) 08/18/24 08/18/24 05:31 07:56 WBC 7.6 RBC 2.70 L Hgb 7.1 L Hct 24.3 L MCV 90.0 MCH 26.3 L MCHC 29.2 L RDW 18.1 H Plt Count 334 D MPV 9.8 Immature Gran % (Auto) Neut % (Auto) Lymph % (Auto) Cooper % (Auto) Eos % (Auto) Baso % (Auto) Lymph # (Auto) Cooper # (Auto) Eos # (Auto) Baso # (Auto) Abs Immat Gran (auto) Absolute Neuts (auto) Absolute Nucleated RBC 0.020 H Nucleated RBC % (auto) 0.3 H Hold Purple Top Sodium 140 Potassium 3.7 Chloride 101 Carbon Dioxide 28 Anion Gap 15 BUN 45 H Creatinine 2.59 H Estim Creat Clear Calc 19.5 Estimated GFR 18 Random Glucose 131 H Estimat Average Glucose Hemoglobin A1c % Lactic Acid Calcium 8.5 D Magnesium 2.2 Total Bilirubin Direct Bilirubin AST ALT Alkaline Phosphatase Troponin I High Sens Total Protein Albumin Lipase TSH Free T4 Urine Color Urine Appearance Urine pH Ur Specific [place] Urine Protein Urine Glucose (UA) Urine Ketones Urine Blood Urine Nitrite Ur Leukocyte Esterase Urine RBC Urine WBC Ur Squamous Epith Cells Urine Bacteria Hyaline Casts Respiratory Panel Garcia Adenovirus (Rapid PCR) B.pert (TEM-PCR) B.parapertussis DNA PCR C. pneumoniae DNA (PCR) Coronavirus OC43 (PCR) Coronavirus HKU1 (PCR) Coronavirus 229E (PCR) Coronavirus NL63 (PCR) Human Metapneumovir PCR Influenza A (RT-PCR) Influenza A (H1) PCR Influ A (H1/09) PCR Influenza A (H3) PCR Influenza B (RT-PCR) M. pneumoniae (PCR) Parainfluenza 1 (PCR) Parainfluenza 2 (PCR) Parainfluenza 3 (PCR) Parainfluenza 4 (PCR) RSV (PCR) Entero/Rhino (PCR) SARS-CoV-2 RNA (RT-PCR) Blood Type B Positive Antibody Screen POSITIVE Antibody Identification Anti-K Crossmatch (AHG) See Detail Airway Mallampati Class: II TM Dist: >3cm Neck ROM: Full Partial: Upper and Lower Heart: h/o CAD. see cardiol consult. Lungs: ok Assessment and Plan Assessment Anesthesia Assessment: Anesthesia Plan Discussed and Chart Reviewed Final Anesthetic Review Family History of Problems with Anesthesia: No History of Problems with Anesthesia: No NPO: Yes ASA Class: III and IV Final Preanesthetic Review: No Changes in Pt Med Stat, Meds/Allgs Chart Reviewed, Consent Obtained/Reviewed and Anes Risks/Benef Reviewed Patient Risk: High Procedure Risk: Intermediate Anesthetic Plan Anesthetic Plan: Agree w/ Assess. and Plan and TIVA Disposition: Standard PACU
--- NOTE | 2024-08-18 13:02 | P.OP_ITS ---
Operative Note Operative Note Date of Service: 08/18/24 Narrative: FLEXIBLE TRANSORAL UPPER GASTROINTESTINAL ENDOSCOPY WITH PATENCY CAPSULE PLACEMENT Pre-op diagnosis: Acute on chronic anemia Post-op diagnosis: Dudenal polyp Endoscopist:? Kelsy Sarabia MD Anesthesia:?MAC UPPER ENDOSCOPY Consent: Indications for the procedure and potential complications of bleeding, perforation, reaction to medications and missed diagnosis were discussed with the patient and informed consent was obtained. Instrument: Olympus GIF H 190 mid size upper endoscope Monitoring: Vital signs and clinical assessment, continuous EKG monitoring, Pulse oximetry, Carbon Dioxide monitoring and blood pressure monitoring were done throughout the procedure. Procedure: The patient was placed in the left lateral decubitis position and pre-procedure medications were administered and a bite block was placed. The endoscope was inserted into the mouth and advanced under direct vision to the third part of duodenum. A careful inspection was made as the upper endoscope was withdrawn including a retroflexed examination of the proximal stomach; Findings and interventions are described below. Findings: Larynx: Normal Esophagus: GE junction at 38 cms. No esophagitis or Cordova's. Stomach: Normal gastric mucosa Grade 2 flap valve on retroflexed examination of the cardia. Duodenum: A 2 cms polypoid lesion at the apex of the bulb (benign on biopsies obtained during EGD in 04/2024) Normal descending duodenum Intervention: The endoscope was removed and Patency Capsule was loaded on to a [employer] capsule endoscope delivery device and advanced to the distal stomach and released. Impression and Post Procedure Diagnosis: Endoscopy Findings: ESOPHAGUS: Normal STOMACH: Normal DUODENUM: Duodenal polyp - benign on past biopsies. Patency Capsule was loaded on a capsule endoscope delivery device and released in the distal stomach. Plan: KUB tonight and in the am to check patency capsule position - order placed. Pt is scheduled for repeat EGD with Pill Cam placement if KUB shows passage of patency capsule into the colon. Above findings were reviewed with the patient.
--- NOTE | 2024-08-18 13:26 | PC.NURSE ---
Attempt to place IV 2 x by this sign writer hand, unsuccessful.
--- NOTE | 2024-08-18 15:14 | P.CDIM_ITS ---
PROVIDER RESPONSE TEXT: To clarify, the appropriate diagnosis supported by the clinical indicators: Hypernatremia: hypernatremia QUERY TEXT: PHYSICIAN'S DOCUMENTATION REQUEST Date of Query: 08/18/2024 11:11 AM EDT Patient Name: Yecenia Easton Admit Date: 08/14/2024 Dear Xi Ward MD, A review of the medical record indicates additional documentation may be needed. Please review below and update the documentation accordingly. Clinical Indicators: LABS: Sodium 148 H N/V Fluids Based on the above, is there a diagnosis that correlates with these lab findings? Hypernatremia resolved, possible, probable, etc. Labs indicate a diagnosis of (please specify) Other (explain) Clinically unable to determine (explain) Thank you, Meme Hendricks, CCS, CDIS Use of terms such as suspected, likely, concern for, or probable (associated with a specific diagnosis that is being evaluated, monitored, or treated as if it exists) are acceptable and can be coded in the inpatient setting, when documented at the time of discharge. Please use your independent medical judgment in providing your response. THIS QUERY IS PART OF THE PERMANENT MEDICAL RECORD
[2024-08-18] MEDS: Lidocaine 4 % Patch ADH..PATCH 2 PATCH TRANSDERMA (15:21)
--- NOTE | 2024-08-18 15:28 | MHC.CM.PN ---
EMR REVIEWED AND PER MD ROUNDS, PT WILL HAVE AN EGD/COLONOSCOPY TODAY. CM WILL CONTINUE TO FOLLOW FOR THE PLAN.
--- NOTE | 2024-08-18 18:30 | PC.NURSE ---
@750 notified by CMT pt had 4 beats of BVT. Notfied Ed. Pt asymptomatic. Per MD amlodipine, clonidine n imdur were held. 4 bags of IV K+ were ordered. Remained NS throughout this shift.
[2024-08-19] VITALS (12 sets, daily range): BP systolic 120–163; BP diastolic 42–119; PULSE 64–78; RESP 12–18; TEMP 36.6–37.6; O2SAT 93–97
[2024-08-19] MEDS: Omeprazole/Na Bicarb Oral Susp 20 MG/10 ML UD Cup PO ×2 (05:35→16:37)
--- NOTE | 2024-08-19 09:00 | P.PNNP_ITS ---
Subjective Subjective Date of Service: 08/19/24 Interval history: following for uncontrolled hypertension. Pt with CKD3 at baseline, pt of Dr Boyer. she states she is doing ok today. Ongoing distress over personal situation at home- mother is on hospice. continued hospital stay for upper endoscopy for anemia workup blood pressures have improved- pt agreed to start lower dose of lasix, declines increase back to outpatient dose at this time Denies other concerns/complaints today. Physical Exam 2 Vital Signs: Vital Signs: Last Vital Signs Temp 98.7 F 08/19/24 07:40 Pulse 64 08/19/24 07:40 Resp 18 08/19/24 07:40 BP 120/65 08/19/24 07:40 Pulse Ox 95 08/19/24 07:40 O2 Del Method Room Air 08/19/24 07:40 BMI result Body Mass Index 24.0 Const: General: comfortable and no acute distress Resp: Effort & Inspection: normal respiratory effort and able to speak in complete sentences Auscultation: clear to auscultation bilaterally Cardio: Rate: regular rate Rhythm: regular rhythm Heart sounds: S1 normal heart sound present and S2 normal heart sound present GI: Palpation (GI): Soft to palpation and nontender : General: Yes no CVA tenderness Back/Spine/Pelvis: Back: no CVA tenderness Skin: Rashes: no rashes Extrem: General: Yes edema (+1 BLE edema, pitting) Objective Data Labs 08/19/24 09:01 08/19/24 09:01 Labs: Laboratory Results - last 24 hr 08/18/24 08/19/24 07:56 09:01 WBC 6.4 RBC 3.14 L Hgb 8.6 L D Hct 27.7 L MCV 88.2 MCH 27.4 MCHC 31.0 RDW 17.1 H Plt Count 340 MPV 9.8 Absolute Nucleated RBC 0.000 Nucleated RBC % (auto) 0.0 Sodium 141 Potassium 3.8 Chloride 102 Carbon Dioxide 28 Anion Gap 15 BUN 34 H Creatinine 2.29 H Estim Creat Clear Calc 22.0 Estimated GFR 21 Random Glucose 98 Calcium 9.1 D Blood Type B Positive Antibody Screen POSITIVE Antibody Identification Anti-K Crossmatch (AHG) See Detail Procedures Date of Service Date of Service: 08/19/24 Assessment & Plan Assessment and plan (1) Hypertension: Status: Acute (2) CKD (chronic kidney disease) stage 3, GFR 30-59 ml/min: Status: Acute Plan Hypertensive urgency after holding diuretic due to nausea/malaise. Resolved. patient has coronary artery disease, LE edema is worsening discussed importance of maintaining proper fluid balance, patient appears fluid overloaded and discussed my concerns about continuing to go without a diuretic, discussed fluid overload may continue to worsen and affect her breathing. She has agreed to re-start lower dose of lasix 20mg BID but declines increasing dose at this time. She verbalizes understanding of recommendations and risks, benefits of lasix, risks of inadequate fluid removal. Will continue remainder of antihypertensive regimen. Patient's blood pressures are well controlled at this time. Patient declines outpatient follow up this week in nephrology office- states she needs to be with her dying mother this week. Discussed office will call to schedule for ~2 weeks CKD remains at baseline avoid nephrotoxic substances Continue supportive care Discussed with Dr Schumacher. Time Spent With Patient Time: Total time managing care of this patient today ____ minutes. Progress Note: Quality Stroke Does the patient have a stroke diagnosis?: No Reason for No Anti-thrombotic by Day Two: N/A - Med Ordered
[2024-08-19 09:04] LABS: Hematocrit 27.7 % (37.0-47.0); Hemoglobin 8.6 g/dl (12.0-16.0); Mean Corpuscular HGB Conc 31.0 g/dl (31.0-35.0); Mean Corpuscular Hemoglobin 27.4 pg (27.0-33.0); Mean Corpuscular Volume 88.2 fL (80.0-98.0); NRBC Abs Auto 0.000 X10*3/uL (0.0-0.012); NRBC Pct Auto 0.0 /100WBC (0.0-0.2); Platelet Count 340 X10*3/uL (160-400); Red Blood Count 3.14 X10*6/uL (4.20-5.50); White Blood Count 6.4 X10*3/uL (4.8-10.8)
[2024-08-19 09:15] LABS: Anion Gap 15 (12-20); Blood Urea Nitrogen 34 mg/dL (9-16); Calcium 9.1 mg/dL (8.4-10.2); Carbon Dioxide 28 mmol/L (22-29); Chloride 102 mmol/L (96-108); Creatinine Clr Calc Pharmacy 22.0; Estimated Glomerular Filt Rate 21; Potassium 3.8 mmol/L (3.3-5.1); Sodium 141 mmol/L (135-145)
[2024-08-19] MEDS: 0.9 % Sodium Chloride Flush 3 ML SYRINGE IVFLUSH ×3 (09:32→21:31)
[2024-08-19] MEDS: Lidocaine 4 % Patch ADH..PATCH 2 PATCH TRANSDERMA (09:48)
--- NOTE | 2024-08-19 12:56 | P.PNIM_ITS ---
Subjective Subjective Date of Service: 08/19/24 Interval History: no complaints Physical Exam 2 Vital Signs: Vital Signs: Last Vital Signs Temp 98.7 F 08/19/24 07:40 Pulse 64 08/19/24 07:40 Resp 18 08/19/24 07:40 BP 120/65 08/19/24 07:40 Pulse Ox 95 08/19/24 07:40 O2 Del Method Room Air 08/19/24 07:40 BMI result Body Mass Index 24.0 Const: General: comfortable and no acute distress Resp: Effort & Inspection: normal respiratory effort and able to speak in complete sentences Auscultation: clear to auscultation bilaterally Cardio: Rate: regular rate Rhythm: regular rhythm Heart sounds: S1 normal heart sound present and S2 normal heart sound present GI: Palpation (GI): Soft to palpation and nontender : General: Yes no CVA tenderness Back/Spine/Pelvis: Back: no CVA tenderness Skin: Rashes: no rashes Extrem: General: Yes edema (+1 BLE edema, pitting) Objective Data Active Medications Albuterol/Ipratropium (Albuterol/Iprat 2.5/0.5mg 3 Ml Ampul.Neb) 3 ml INHALE Q4H PRN PRN Reason: Shortness of Breath/Wheezing Amlodipine Besylate (Amlodipine Besylate 5 Mg Tablet) 5 mg PO BID [facility]; Protocol Last Admin: 08/19/24 09:31 Dose: 5 mg Documented By: LAURA Apixaban (Apixaban 2.5 Mg Tablet) 2.5 mg PO BID [facility] On Hold: 08/15/24 13:12 Last Admin: 08/15/24 07:55 Dose: Not Given Documented By: KELLEE Non-Admin Reason: Patient Refused Ascorbic Acid (Ascorbic Acid 500 Mg Tablet) 1,000 mg PO MOFR [facility] Last Admin: 08/18/24 21:21 Dose: 1,000 mg Documented By: DOMINIC Comments: requested early Aspirin (Aspirin 81 Mg Tab.Chew) 81 mg PO DAILY [facility] On Hold: 08/16/24 09:49 Last Admin: 08/16/24 08:12 Dose: 81 mg Documented By: JIMMY Bisacodyl (Bisacodyl 10 Mg Supp.Rect) 10 mg GA DAILY [facility] Last Admin: 08/19/24 09:40 Dose: Not Given Documented By: LAURA Non-Admin Reason: NPO Calcium Carbonate (Calcium Carbonate 750 Mg Tab.Chew) 750 mg PO Q4H PRN PRN Reason: Heartburn Last Admin: 08/15/24 06:22 Dose: 750 mg Documented By: VIOLETA Clonidine HCl (Clonidine Hcl 0.1 Mg Tablet) 0.1 mg PO TID [facility]; Protocol Last Admin: 08/19/24 09:31 Dose: 0.1 mg Documented By: LAURA Cyanocobalamin (Cyanocobalamin (Vitamin B-12) 500 Mcg Tablet) 1,000 mcg PO DAILY [facility] Last Admin: 08/19/24 09:40 Dose: Not Given Documented By: LAURA Non-Admin Reason: NPO Docusate Sodium (Docusate Sodium 100 Mg/10 Ml Liquid) 100 mg PO BID [facility] Last Admin: 08/19/24 09:41 Dose: Not Given Documented By: LAURA Non-Admin Reason: NPO Furosemide (Furosemide 20 Mg Tablet) 20 mg PO BID [facility]; Protocol Last Admin: 08/19/24 09:31 Dose: 20 mg Documented By: LAURA Isosorbide Mononitrate (Isosorbide Mononitrate 30 Mg Tab.Er.24h) 90 mg PO DAILY [facility]; Protocol Last Admin: 08/19/24 09:41 Dose: Not Given Documented By: LAURA Non-Admin Reason: NPO, unable to crush\ Lidocaine (Lidocaine 4 % Patch Adh..Patch) 2 patch TRANSDERMA DAILY [facility]; Protocol Last Admin: 08/19/24 09:48 Dose: 2 patch Documented By: LAURA Lorazepam (Lorazepam 0.5 Mg Tablet) 0.5 mg PO Q8H PRN PRN Reason: Anxiety Last Admin: 08/17/24 01:13 Dose: 0.5 mg Documented By: YUNIOR Magnesium Hydroxide (Milk Of Magnesia 30 Ml Oral.Susp) 30 ml PO DAILY PRN PRN Reason: Constipation Last Admin: 08/16/24 08:13 Dose: 30 ml Documented By: JIMMY Melatonin (Melatonin 3 Mg Tablet) 6 mg PO BEDTIME PRN PRN Reason: Insomnia Last Admin: 08/14/24 00:48 Dose: 6 mg Documented By: RITA Naloxone HCl (Naloxone Hcl 0.4 Mg/Ml Vial) 0.04 mg IVPUSH Q5M PRN PRN Reason: Excessive sedation or RR < 8 Omeprazole (Omeprazole/Na Bicarb Oral Susp 20 Mg/10 Ml Ud Cup) 20 mg PO BID@0630,1630 [facility] Last Admin: 08/19/24 05:35 Dose: 20 mg Documented By: DOMINIC Ondansetron HCl (Ondansetron Hcl 4 Mg/2 Ml Vial) 4 mg IVPUSH Q8H PRN PRN Reason: Nausea and Vomiting Last Admin: 08/17/24 08:28 Dose: 4 mg Documented By: JIMMY Oxycodone HCl (Oxycodone Hcl Immed Release 5 Mg Tablet) 10 mg PO Q6H PRN PRN Reason: Pain, Severe (Pain Scale 7-10) Last Admin: 08/18/24 04:52 Dose: 10 mg Documented By: MARIANNA Polyethylene Glycol (Polyethylene Glycol 3350 17 Gm Powd.Pack) 17 gm PO DAILY [facility] Last Admin: 08/19/24 09:43 Dose: Not Given Documented By: LAURA Non-Admin Reason: NPO Sodium Chloride (0.9 % Sodium Chloride Flush 3 Ml Syringe) 3 ml IVFLUSH QSHIFT [facility] Last Admin: 08/19/24 09:32 Dose: 3 ml Documented By: LAURA Labs 08/19/24 09:01 08/19/24 09:01 Labs: Laboratory Results - last 24 hr 08/18/24 08/19/24 07:56 09:01 MCV 88.2 MCH 27.4 MCHC 31.0 RDW 17.1 H Plt Count 340 MPV 9.8 Absolute Nucleated RBC 0.000 Nucleated RBC % (auto) 0.0 Anion Gap 15 Estim Creat Clear Calc 22.0 Estimated GFR 21 Random Glucose 98 Calcium 9.1 D Blood Type B Positive Antibody Screen POSITIVE Antibody Identification Anti-K Crossmatch (AHG) See Detail Assessment and Plan (1) Bradycardia: Status: Acute Plan 74F PMH cad, htn, pvd, dvt/pe 2017 on eliquis, JUANA on weekly infusions, graves, hfpef, dm, ckd IV presented with nausea and anemia nausea resolved acute on chronic anemia iron deciency + CKD IV concern for small bowel source not passing patency capsule gi following episode of rizwana resolved, not on beta blockers anymore htn amlodipine, imdur, clonidine mild hypernatremia encourage po history of dvt/pe holding eliquis for gi bleed dvt prohylaixs- mechanical full code reason for continued hospitalization:anemia Quality Stroke Does the patient have a stroke diagnosis?: No Reason for No Anti-thrombotic by Day Two: N/A - Med Ordered VTE Prior VTE?: No VTE Risk Level:: Medical - moderate - high VTE Device Contraindication: N/A - Device Ordered VTE Drug Contraindication: N/A - Med Ordered
--- NOTE | 2024-08-19 13:26 | P.CONAN_ITS ---
[facility] Active Problems Active Problems: All Active Problems (Updated 08/18/24 @ 10:57 by Isa Awan NP) Situational depression (Acute) Bradycardia (Acute) Osteoarthritis (Acute) Intractable nausea (Acute) Hypertensive urgency (Acute) Symptomatic anemia (Acute) Varicose veins of right lower extremity with inflammation (Acute) CAD (coronary artery disease) (Acute) PVD (peripheral vascular disease) (Acute) Pulmonary embolism (Chronic) Edema (Acute) Anemia (Acute) Secondary hyperparathyroidism (of renal origin) (Acute) Right leg swelling (Acute) Acute on chronic anemia (Acute) Osteoarthritis of right knee (Acute) Knee pain, right (Acute) Gout (Acute) Unintentional weight loss (Acute) Dyspnea (Acute) GIB (gastrointestinal bleeding) (Acute) Hyperkalemia (Acute) Iron deficiency (Acute) Hypertension (Acute) CKD (chronic kidney disease) stage 3, GFR 30-59 ml/min (Acute) Anemia in chronic kidney disease (Acute) Past Medical History Medical History Graves disease CAD (coronary artery disease) Osteoarthritis Hx of transfusion of packed red blood cells Diet-controlled diabetes mellitus Pulmonary embolism DVT (deep venous thrombosis) Anemia in chronic kidney disease Hypertension CKD (chronic kidney disease) stage 3, GFR 30-59 ml/min Functional capacity: independent ambulation Family History Family History Maternal Grandfather Stomach cancer Family history of problems with anesthesia: No Surgical History Surgical History Hx of heart artery stent History of partial hysterectomy History of Problems with Anesthesia: No Social History Social History Household Members: None Housing: Apartment Do you presently have visiting nurse or other home services: No Alcohol intake: never Patient Tobacco Use Status: Former Tobacco user Tobacco use type: Cigarette Smoked in Last 30 Days: No Use of substances other than those prescribed or required for medical reasons: No Currently Displaying Signs/Symptoms of Drug Intoxication Withdrawal: No Have you been hit, kicked, punched, or otherwise hurt by someone within the past year? If so, by whom?: No Do you feel safe in your current relationship?: No Current Relationship Is there a partner from a previous relationship who is making you feel unsafe now?: No Are you made to feel afraid or neglected: No Advance Directives: No Advance Directives Information Provided: Yes Do you have a plan to hurt others: No Plan Recently lost weight without trying: No Nutrition Risks: No Nutritional Risk Patient : No : No Poor oral hygiene: No service: No Current occupational status: retired Meds Allergies Allergy/AdvReac Type Severity Reaction Status Date / Time codeine Allergy Intermediate Nausea Verified 08/13/24 11:59 latex Allergy Intermediate Rash Verified 08/13/24 11:59 hydrochlorothiazide Allergy Unknown Unknown Verified 08/13/24 11:59 morphine Allergy Unknown Nausea Verified 08/13/24 11:59 SHAYY Inhibitors AdvReac Unknown Unknown Verified 08/13/24 11:59 Active Medications: Current Medications Albuterol/Ipratropium (Albuterol/Iprat 2.5/0.5mg 3 Ml Ampul.Neb) 3 ml INHALE Q4H PRN PRN Reason: Shortness of Breath/Wheezing Amlodipine Besylate (Amlodipine Besylate 5 Mg Tablet) 5 mg PO BID [facility]; Protocol Last Admin: 08/19/24 09:31 Dose: 5 mg Apixaban (Apixaban 2.5 Mg Tablet) 2.5 mg PO BID [facility] On Hold: 08/15/24 13:12 Last Admin: 08/15/24 07:55 Dose: Not Given Ascorbic Acid (Ascorbic Acid 500 Mg Tablet) 1,000 mg PO MOFR [facility] Last Admin: 08/18/24 21:21 Dose: 1,000 mg Aspirin (Aspirin 81 Mg Tab.Chew) 81 mg PO DAILY [facility] On Hold: 08/16/24 09:49 Last Admin: 08/16/24 08:12 Dose: 81 mg Bisacodyl (Bisacodyl 10 Mg Supp.Rect) 10 mg MT DAILY [facility] Last Admin: 08/19/24 09:40 Dose: Not Given Calcium Carbonate (Calcium Carbonate 750 Mg Tab.Chew) 750 mg PO Q4H PRN PRN Reason: Heartburn Last Admin: 08/15/24 06:22 Dose: 750 mg Clonidine HCl (Clonidine Hcl 0.1 Mg Tablet) 0.1 mg PO TID [facility]; Protocol Last Admin: 08/19/24 09:31 Dose: 0.1 mg Cyanocobalamin (Cyanocobalamin (Vitamin B-12) 500 Mcg Tablet) 1,000 mcg PO DAILY [facility] Last Admin: 08/19/24 09:40 Dose: Not Given Docusate Sodium (Docusate Sodium 100 Mg/10 Ml Liquid) 100 mg PO BID [facility] Last Admin: 08/19/24 09:41 Dose: Not Given Furosemide (Furosemide 20 Mg Tablet) 20 mg PO BID [facility]; Protocol Last Admin: 08/19/24 09:31 Dose: 20 mg Isosorbide Mononitrate (Isosorbide Mononitrate 30 Mg Tab.Er.24h) 90 mg PO DAILY [facility]; Protocol Last Admin: 08/19/24 09:41 Dose: Not Given Lidocaine (Lidocaine 4 % Patch Adh..Patch) 2 patch TRANSDERMA DAILY [facility]; Protocol Last Admin: 08/19/24 09:48 Dose: 2 patch Lorazepam (Lorazepam 0.5 Mg Tablet) 0.5 mg PO Q8H PRN PRN Reason: Anxiety Last Admin: 08/17/24 01:13 Dose: 0.5 mg Magnesium Hydroxide (Milk Of Magnesia 30 Ml Oral.Susp) 30 ml PO DAILY PRN PRN Reason: Constipation Last Admin: 08/16/24 08:13 Dose: 30 ml Melatonin (Melatonin 3 Mg Tablet) 6 mg PO BEDTIME PRN PRN Reason: Insomnia Last Admin: 08/14/24 00:48 Dose: 6 mg Naloxone HCl (Naloxone Hcl 0.4 Mg/Ml Vial) 0.04 mg IVPUSH Q5M PRN PRN Reason: Excessive sedation or RR < 8 Omeprazole (Omeprazole/Na Bicarb Oral Susp 20 Mg/10 Ml Ud Cup) 20 mg PO BID@0630,1630 [facility] Last Admin: 08/19/24 05:35 Dose: 20 mg Ondansetron HCl (Ondansetron Hcl 4 Mg/2 Ml Vial) 4 mg IVPUSH Q8H PRN PRN Reason: Nausea and Vomiting Last Admin: 08/17/24 08:28 Dose: 4 mg Oxycodone HCl (Oxycodone Hcl Immed Release 5 Mg Tablet) 10 mg PO Q6H PRN PRN Reason: Pain, Severe (Pain Scale 7-10) Last Admin: 08/18/24 04:52 Dose: 10 mg Polyethylene Glycol (Polyethylene Glycol 3350 17 Gm Powd.Pack) 17 gm PO DAILY [facility] Last Admin: 08/19/24 09:43 Dose: Not Given Sodium Chloride (0.9 % Sodium Chloride Flush 3 Ml Syringe) 3 ml IVFLUSH QSHIFT [facility] Last Admin: 08/19/24 09:32 Dose: 3 ml Home Medications ?Medication ?Instructions ?Recorded ?Confirmed ?Last Taken ?Type apixaban 2.5 mg tablet (Eliquis) 2.5 mg PO BID 3 08/13/24 08/12/24 History ascorbate calcium (vitamin C) 500 1 g PO MOFR 02/27/24 08/13/24 08/11/24 History mg tablet mecobalamin (vitamin B12) 1,000 1,000 mcg PO DAILY 10/1308/13/24 08/12/24 History mcg chewable tablet acetaminophen 500 mg tablet 1,500 mg PO DAILY PRN Pain 05/08/24 08/13/24 Unknown History clonidine HCl 0.1 mg tablet 0.1 mg PO TID 05/08/2408/12/24 History aspirin 81 mg chewable tablet 1 tab PO DAILY 08/13/24 08/13/24 08/12/24 History furosemide 20 mg tablet 20 mg PO TID 08/13/2408/12/24 History metoprolol tartrate 50 mg tablet 100 mg PO BID 5 08/13/24 08/12/24 History Exam Height,Weight and Vital Signs: Height 5 ft 8 in Weight 71.7 kg Last Vital Signs Temp 98.7 F 08/19/24 07:40 Pulse 64 08/19/24 07:40 Resp 18 08/19/24 07:40 BP 120/65 08/19/24 07:40 Pulse Ox 95 08/19/24 07:40 O2 Del Method Room Air 08/19/24 07:40 Pertinent Lab Results Pertinent Lab Results: Laboratory Tests 08/13/24 08/13/24 08/13/24 12:32 13:49 16:22 WBC 6.6 RBC 3.00 L Hgb 8.0 L Hct 28.2 L MCV 94.0 MCH 26.7 L MCHC 28.4 L RDW 19.5 H Plt Count 463 H D MPV 9.1 L Immature Gran % (Auto) 0.3 Neut % (Auto) 88.0 H Lymph % (Auto) 7.0 L [place] % (Auto) 4.2 Eos % (Auto) 0.0 Baso % (Auto) 0.5 Lymph # (Auto) 0.5 L [place] # (Auto) 0.3 Eos # (Auto) 0.0 Baso # (Auto) 0.0 Abs Immat Gran (auto) 0.02 Absolute Neuts (auto) 5.8 Absolute Nucleated RBC 0.020 H Nucleated RBC % (auto) 0.3 H Hold Purple Top Sodium 149 H Potassium 4.2 Chloride 113 H Carbon Dioxide 25 Anion Gap 15 BUN 60 H Creatinine 2.36 H Estim Creat Clear Calc 21.3 Estimated GFR 20 Random Glucose 157 H Estimat Average Glucose Hemoglobin A1c % Lactic Acid Calcium 9.8 D Magnesium Total Bilirubin 0.3 Direct Bilirubin 0.2 AST 19 ALT 8 Alkaline Phosphatase 120 H Troponin I High Sens 43.1 H D Total Protein 7.5 Albumin 3.4 L Lipase 47 TSH Free T4 Urine Color Straw Urine Appearance Clear Urine pH 6.0 Ur Specific [place] 1.020 Urine Protein 300 (3+) H Urine Glucose (UA) Negative Urine Ketones Negative Urine Blood Small (1+) H Urine Nitrite Negative Ur Leukocyte Esterase Negative Urine RBC 3-5 H Urine WBC 0-5 Ur Squamous Epith Cells 0-2 Urine Bacteria None Seen Hyaline Casts 0-2 Respiratory Panel Garcia Adenovirus (Rapid PCR) B.pert (TEM-PCR) B.parapertussis DNA PCR C. pneumoniae DNA (PCR) Coronavirus OC43 (PCR) Coronavirus HKU1 (PCR) Coronavirus 229E (PCR) Coronavirus NL63 (PCR) Human Metapneumovir PCR Influenza A (RT-PCR) Influenza A (H1) PCR Influ A (H1/09) PCR Influenza A (H3) PCR Influenza B (RT-PCR) M. pneumoniae (PCR) Parainfluenza 1 (PCR) Parainfluenza 2 (PCR) Parainfluenza 3 (PCR) Parainfluenza 4 (PCR) RSV (PCR) Entero/Rhino (PCR) SARS-CoV-2 RNA (RT-PCR) Blood Type Antibody Screen Antibody Identification Crossmatch (AHG) 08/13/24 08/13/24 08/14/24 19:55 22:39 01:09 WBC RBC Hgb Hct MCV MCH MCHC RDW Plt Count MPV Immature Gran % (Auto) Neut % (Auto) Lymph % (Auto) [place] % (Auto) Eos % (Auto) Baso % (Auto) Lymph # (Auto) [place] # (Auto) Eos # (Auto) Baso # (Auto) Abs Immat Gran (auto) Absolute Neuts (auto) Absolute Nucleated RBC Nucleated RBC % (auto) Hold Purple Top Sodium Potassium Chloride Carbon Dioxide Anion Gap BUN Creatinine Estim Creat Clear Calc Estimated GFR Random Glucose Estimat Average Glucose Hemoglobin A1c % Lactic Acid 1.6 Calcium Magnesium 2.5 Total Bilirubin Direct Bilirubin AST ALT Alkaline Phosphatase Troponin I High Sens 70.5 H* D 85.4 H* Total Protein Albumin Lipase TSH 1.07 Free T4 1.01 Urine Color Urine Appearance Urine pH Ur Specific [place] Urine Protein Urine Glucose (UA) Urine Ketones Urine Blood Urine Nitrite Ur Leukocyte Esterase Urine RBC Urine WBC Ur Squamous Epith Cells Urine Bacteria Hyaline Casts Respiratory Panel Garcia Adenovirus (Rapid PCR) B.pert (TEM-PCR) B.parapertussis DNA PCR C. pneumoniae DNA (PCR) Coronavirus OC43 (PCR) Coronavirus HKU1 (PCR) Coronavirus 229E (PCR) Coronavirus NL63 (PCR) Human Metapneumovir PCR Influenza A (RT-PCR) Influenza A (H1) PCR Influ A (H1/09) PCR Influenza A (H3) PCR Influenza B (RT-PCR) M. pneumoniae (PCR) Parainfluenza 1 (PCR) Parainfluenza 2 (PCR) Parainfluenza 3 (PCR) Parainfluenza 4 (PCR) RSV (PCR) Entero/Rhino (PCR) SARS-CoV-2 RNA (RT-PCR) Blood Type Antibody Screen Antibody Identification Crossmatch (AH) 08/14/24 08/14/24 08/14/24 05:47 12:11 16:36 WBC 6.8 RBC 2.88 L Hgb 7.7 L Hct 26.6 L MCV 92.4 MCH 26.7 L MCHC 28.9 L RDW 19.3 H Plt Count 451 H MPV 9.3 L Immature Gran % (Auto) 0.3 Neut % (Auto) 77.0 H Lymph % (Auto) 12.6 L [place] % (Auto) 9.4 Eos % (Auto) 0.3 Baso % (Auto) 0.4 Lymph # (Auto) 0.9 L [place] # (Auto) 0.6 Eos # (Auto) 0.0 Baso # (Auto) 0.0 Abs Immat Gran (auto) 0.02 Absolute Neuts (auto) 5.3 Absolute Nucleated RBC 0.020 H Nucleated RBC % (auto) 0.3 H Hold Purple Top Sodium 148 H Potassium 4.4 Chloride 113 H Carbon Dioxide 24 Anion Gap 15 BUN 53 H Creatinine 2.36 H Estim Creat Clear Calc 21.3 Estimated GFR 20 Random Glucose 126 H Estimat Average Glucose 114 Hemoglobin A1c % 5.6 Lactic Acid Calcium 9.6 Magnesium Total Bilirubin 0.3 Direct Bilirubin AST 20 ALT < 6 Alkaline Phosphatase 92 Troponin I High Sens 69.7 H* Total Protein 6.7 Albumin 2.9 L Lipase TSH Free T4 Urine Color Yellow Urine Appearance Clear Urine pH 5.0 Ur Specific [place] 1.020 Urine Protein >=1000 (4+) H Urine Glucose (UA) Negative Urine Ketones Negative Urine Blood Negative Urine Nitrite Negative Ur Leukocyte Esterase Negative Urine RBC 0-2 Urine WBC 0-5 Ur Squamous Epith Cells 3-5 Urine Bacteria None Seen Hyaline Casts 11-20 Respiratory Panel [place] Adenovirus (Rapid PCR) B.pert (TEM-PCR) B.parapertussis DNA PCR C. pneumoniae DNA (PCR) Coronavirus OC43 (PCR) Coronavirus HKU1 (PCR) Coronavirus 229E (PCR) Coronavirus NL63 (PCR) Human Metapneumovir PCR Influenza A (RT-PCR) Influenza A (H1) PCR Influ A (H1/09) PCR Influenza A (H3) PCR Influenza B (RT-PCR) M. pneumoniae (PCR) Parainfluenza 1 (PCR) Parainfluenza 2 (PCR) Parainfluenza 3 (PCR) Parainfluenza 4 (PCR) RSV (PCR) Entero/Rhino (PCR) SARS-CoV-2 RNA (RT-PCR) Blood Type Antibody Screen Antibody Identification Crossmatch ([facility]) 08/14/24 08/15/24 08/16/24 18:30 05:41 06:12 WBC RBC Hgb 7.5 L Hct 25.8 L MCV MCH MCHC RDW Plt Count MPV Immature Gran % (Auto) Neut % (Auto) Lymph % (Auto) [place] % (Auto) Eos % (Auto) Baso % (Auto) Lymph # (Auto) [place] # (Auto) Eos # (Auto) Baso # (Auto) Abs Immat Gran (auto) Absolute Neuts (auto) Absolute Nucleated RBC Nucleated RBC % (auto) Hold Purple Top SEE NOTE Sodium 144 Potassium 4.6 Chloride 109 H Carbon Dioxide 24 Anion Gap 16 BUN 52 H Creatinine 2.57 H Estim Creat Clear Calc 19.6 Estimated GFR 18 Random Glucose 110 Estimat Average Glucose Hemoglobin A1c % Lactic Acid Calcium 9.4 Magnesium Total Bilirubin Direct Bilirubin AST ALT Alkaline Phosphatase Troponin I High Sens Total Protein Albumin Lipase TSH Free T4 Urine Color Urine Appearance Urine pH Ur Specific [place] Urine Protein Urine Glucose (UA) Urine Ketones Urine Blood Urine Nitrite Ur Leukocyte Esterase Urine RBC Urine WBC Ur Squamous Epith Cells Urine Bacteria Hyaline Casts Respiratory Panel Garcia See Note Adenovirus (Rapid PCR) Not Detected B.pert (TEM-PCR) Not Detected B.parapertussis DNA PCR Not Detected C. pneumoniae DNA (PCR) Not Detected Coronavirus OC43 (PCR) Not Detected Coronavirus HKU1 (PCR) Not Detected Coronavirus 229E (PCR) Not Detected Coronavirus NL63 (PCR) Not Detected Human Metapneumovir PCR Not Detected Influenza A (RT-PCR) Not Detected Influenza A (H1) PCR Not Detected Influ A (H1/09) PCR Not Detected Influenza A (H3) PCR Not Detected Influenza B (RT-PCR) Not Detected M. pneumoniae (PCR) Not Detected Parainfluenza 1 (PCR) Not Detected Parainfluenza 2 (PCR) Not Detected Parainfluenza 3 (PCR) Not Detected Parainfluenza 4 (PCR) Not Detected RSV (PCR) Not Detected Entero/Rhino (PCR) Not Detected SARS-CoV-2 RNA (RT-PCR) Not Detected Blood Type Antibody Screen Antibody Identification Crossmatch (AHG) 08/18/24 08/18/24 08/19/24 05:31 07:56 09:01 WBC 7.6 6.4 RBC 2.70 L 3.14 L Hgb 7.1 L 8.6 L D Hct 24.3 L 27.7 L MCV 90.0 88.2 MCH 26.3 L 27.4 MCHC 29.2 L 31.0 RDW 18.1 H 17.1 H Plt Count 334 D 340 MPV 9.8 9.8 Immature Gran % (Auto) Neut % (Auto) Lymph % (Auto) [place] % (Auto) Eos % (Auto) Baso % (Auto) Lymph # (Auto) [place] # (Auto) Eos # (Auto) Baso # (Auto) Abs Immat Gran (auto) Absolute Neuts (auto) Absolute Nucleated RBC 0.020 H 0.000 Nucleated RBC % (auto) 0.3 H 0.0 Hold Purple Top Sodium 140 141 Potassium 3.7 3.8 Chloride 101 102 Carbon Dioxide 28 28 Anion Gap 15 15 BUN 45 H 34 H Creatinine 2.59 H 2.29 H Estim Creat Clear Calc 19.5 22.0 Estimated GFR 18 21 Random Glucose 131 H 98 Estimat Average Glucose Hemoglobin A1c % Lactic Acid Calcium 8.5 D 9.1 D Magnesium 2.2 Total Bilirubin Direct Bilirubin AST ALT Alkaline Phosphatase Troponin I High Sens Total Protein Albumin Lipase TSH Free T4 Urine Color Urine Appearance Urine pH Ur Specific [place] Urine Protein Urine Glucose (UA) Urine Ketones Urine Blood Urine Nitrite Ur Leukocyte Esterase Urine RBC Urine WBC Ur Squamous Epith Cells Urine Bacteria Hyaline Casts Respiratory Panel [place] Adenovirus (Rapid PCR) B.pert (TEM-PCR) B.parapertussis DNA PCR C. pneumoniae DNA (PCR) Coronavirus OC43 (PCR) Coronavirus HKU1 (PCR) Coronavirus 229E (PCR) Coronavirus NL63 (PCR) Human Metapneumovir PCR Influenza A (RT-PCR) Influenza A (H1) PCR Influ A (H1/09) PCR Influenza A (H3) PCR Influenza B (RT-PCR) M. pneumoniae (PCR) Parainfluenza 1 (PCR) Parainfluenza 2 (PCR) Parainfluenza 3 (PCR) Parainfluenza 4 (PCR) RSV (PCR) Entero/Rhino (PCR) SARS-CoV-2 RNA (RT-PCR) Blood Type B Positive Antibody Screen POSITIVE Antibody Identification Anti-K Crossmatch (AHG) See Detail Airway Mallampati Class: III TM Dist: >3cm Neck ROM: Limited Loose/Missing/Broken Teeth: No Heart: RRR Lungs: CTA Assessment and Plan Assessment Anesthesia Assessment: Anesthesia Plan Discussed and Chart Reviewed Final Anesthetic Review Family History of Problems with Anesthesia: No History of Problems with Anesthesia: No NPO: Yes ASA Class: III Final Preanesthetic Review: Meds/Allgs Chart Reviewed, Consent Obtained/Reviewed and Anes Risks/Benef Reviewed Patient Risk: Intermediate Procedure Risk: Intermediate Anesthetic Plan Anesthetic Plan: MAC: Disposition: Standard PACU
--- NOTE | 2024-08-19 13:53 | W.PM.OPN ---
Operative Note Operative Note Date of Service: 08/19/24 Narrative: Video Capsule Endoscopy Date of procedure: 08/19/24 Date of report: 08/21/24 Reporting physician: Dr Alison Spear Findings: - Initial gastric images noted with mild edema and diminutive erosions in pylorus. - A small nonbleeding erosion noted in distal jejunum. - Remaining small bowel mucosa was normal with no mass or lesion identified. - Colon not adequately visualized on VCE study. See colonoscopy note from 08/19/24. Plan: - No identifiable source of significant GI bleed on this study. - Recommend iron infusions to correct deficit and monitoring response. - If H/H continues to decline, may need CTE - will need to review with Nephrology. Please see full report with images scanned in the EMR.
--- NOTE | 2024-08-19 14:37 | P.PNGI_ITS ---
Subjective Subjective Date of Service: 08/19/24 Interval History: no rectla bleeding or melena no abdominal pain no n/v hgb stale Critical Care Time (minutes): 0 Physical Exam 2 Vital Signs: Vital Signs: Last Vital Signs Temp 98.7 F 08/19/24 07:40 Pulse 64 08/19/24 07:40 Resp 18 08/19/24 07:40 BP 120/65 08/19/24 07:40 Pulse Ox 95 08/19/24 07:40 O2 Del Method Room Air 08/19/24 07:40 BMI result Body Mass Index 24.0 EXAM: GENERAL: The patient is well developed and nontoxic. VITAL SIGNS:see workflow HEENT: Nonicteric sclerae, PERRLA, EOMI. Oropharynx clear. Moist mucous membranes. Conjunctivae appear well perfused. No thyroid mass. CHEST: Chest wall is nontender. HEART: Regular rate and rhythm without murmurs. LUNGS: Clear to auscultation bilaterally. ABDOMEN: Soft, positive bowel sounds, nontender, no organomegaly.no flank tenderness SKIN: No rash, no excessive bruising, petechiae, or purpura. NEUROLOGIC: Cranial nerves II-XII intact without motor/sensory deficit. Psych: normal affect Objective Data Labs 08/19/24 09:01 08/19/24 09:01 Labs: Laboratory Results - last 24 hr 08/18/24 08/19/24 07:56 09:01 WBC 6.4 RBC 3.14 L Hgb 8.6 L D Hct 27.7 L MCV 88.2 MCH 27.4 MCHC 31.0 RDW 17.1 H Plt Count 340 MPV 9.8 Absolute Nucleated RBC 0.000 Nucleated RBC % (auto) 0.0 Sodium 141 Potassium 3.8 Chloride 102 Carbon Dioxide 28 Anion Gap 15 BUN 34 H Creatinine 2.29 H Estim Creat Clear Calc 22.0 Estimated GFR 21 Random Glucose 98 Calcium 9.1 D Blood Type B Positive Antibody Screen POSITIVE Antibody Identification Anti-K Crossmatch (AHG) See Detail Procedures Date of Service Date of Service: 08/19/24 Progress Note: A&P Assessment and plan (1) GIB (gastrointestinal bleeding): Status: Acute Plan 1/ Anemia, no overt bleeding, abn CT with colonic thickening, patency capsule in rectum PLAN: 1/ CT reviewed will do sigmoidoscopy for colonic thickening, if neg then EGD with capsule Time Spent With Patient Time: Total time managing care of this patient today ____ minutes. Quality Stroke Does the patient have a stroke diagnosis?: No Reason for No Anti-thrombotic by Day Two: N/A - Med Ordered VTE Prior VTE?: No VTE Risk Level:: Medical - moderate - high VTE Device Contraindication: N/A - Device Ordered VTE Drug Contraindication: N/A - Med Ordered
--- NOTE | 2024-08-19 15:22 | P.OP_ITS ---
Operative Note Operative Note Date of Service: 08/19/24 Narrative: Operative Information Procedure Description: EGD, Sigmoidoscopy Indication: anemia and abn imaging, capsule placement Anesthesia: MAC FLEXIBLE TRANSORAL UPPER GASTROINTESTINAL ENDOSCOPY AND COLONOSCOPY PROCEDURE NOTE UPPER ENDOSCOPY Consent: Indications for the procedure and potential complications of bleeding, perforation, reaction to medications and missed diagnosis were discussed with the patient and informed consent was obtained. Instrument: Olympus GIF H 190 J mid size upper endoscope Monitoring: Vital signs and clinical assessment, continuous EKG monitoring, Pulse oximetry, Carbon Dioxide monitoring and blood pressure monitoring were done throughout the procedure. Procedure: The patient was placed in the left lateral decubitis position and pre-procedure medications were administered and a bite block was placed. The endoscope was inserted into the mouth and advanced under direct vision to the third part of duodenum. A careful inspection was made as the upper endoscope was withdrawn including a retroflexed examination of the proximal stomach; Findings and interventions are described below. Findings: Larynx:normal Esophagus: GE junction at 37 cm, diaphragm hiatus at 40 cm, with schatzki ring, small hiatal hernia noted Stomach: Normal mucosa. Grade 2 flap valve on retroflexed examination of the cardia. Duodenum: Normal bulb and descending duodenum, Intervention: capsule deployed in duodenal bulb Sigmoidoscopy Instrument: Olympus variable stiffness pediatric scope 190L Colonoscopy Monitoring: Vital signs and clinical assessment, continuous EKG monitoring, Pulse oximetry, Carbon Dioxide monitoring and blood pressure monitoring were done throughout the procedure. Procedure: The patient was placed in the left lateral decubitis position and pre-procedure medications were administered. After a digital rectal examination of the ano-rectum, the video colonoscope was inserted into the rectum and advanced through the colon to the right colon The colonoscope was slowly withdrawn in a retrograde panoramic fashion and the colon mucosa was carefully examined including a retroflexed view of the rectum. Findings and interventions are described below. Procedure Difficulty:moderate Findings: Ascending Colon: normal, patency capsule was seen Transverse Colon -normal Descending Colon:normal Sigmoid Colon: normal Rectum: Retroflexion with small internal hemorrhoids, grade I Anorectum - normal Colon preparation: [place] Bowel Preparation Scale Right colon; 2 Transverse colon: 2 Left colon; 2 (0 = Unprepared colon segment with mucosa not seen due to solid stool that cannot be cleared. 1 = Portion of mucosa of the colon segment seen, but other areas of the colon segment not well seen due to staining, residual stool and/or opaque liquid. 2 = Minor amount of residual staining, small fragments of stool and/or opaque liquid, but mucosa of colon segment seen well. 3 = Entire mucosa of colon segment seen well with no residual staining, small fragments of stool or opaque liquid) Impression and Post Procedure Diagnosis: Endoscopy Findings: schatzki ring hiatal hernia Colonoscopy Findings: internal hemorrhoids Plan: Await capsule findings Above findings were reviewed with the patient and relevant handouts were provided if indicated.
[2024-08-20 03:01] VITALS: BP 146/68; PULSE 59; RESP 12; TEMP 36.9; O2SAT 95
[2024-08-20] MEDS: oxyCODONE HCl Immed Release 5 MG TABLET 10 MG PO ×2 (03:14→09:18)
[2024-08-20 06:18] LABS: Hematocrit 27.0 % (37.0-47.0); Hemoglobin 8.2 g/dl (12.0-16.0); Mean Corpuscular HGB Conc 30.4 g/dl (31.0-35.0); Mean Corpuscular Hemoglobin 26.8 pg (27.0-33.0); Mean Corpuscular Volume 88.2 fL (80.0-98.0); NRBC Abs Auto 0.000 X10*3/uL (0.0-0.012); NRBC Pct Auto 0.0 /100WBC (0.0-0.2); Platelet Count 308 X10*3/uL (160-400); Red Blood Count 3.06 X10*6/uL (4.20-5.50); White Blood Count 5.6 X10*3/uL (4.8-10.8)
[2024-08-20 06:34] LABS: Anion Gap 13 (12-20); Blood Urea Nitrogen 29 mg/dL (9-16); Calcium 8.7 mg/dL (8.4-10.2); Carbon Dioxide 29 mmol/L (22-29); Chloride 103 mmol/L (96-108); Creatinine Clr Calc Pharmacy 21.8; Estimated Glomerular Filt Rate 21; Potassium 3.8 mmol/L (3.3-5.1); Sodium 141 mmol/L (135-145)
[2024-08-20] MEDS: 0.9 % Sodium Chloride Flush 3 ML SYRINGE IVFLUSH (07:59)
[2024-08-20] MEDS: Omeprazole/Na Bicarb Oral Susp 20 MG/10 ML UD Cup PO (07:59)
[2024-08-20 08:00] VITALS: BP 138/60; PULSE 67; RESP 18; TEMP 36.6; O2SAT 97
[2024-08-20] MEDS: Lidocaine 4 % Patch ADH..PATCH 2 PATCH TRANSDERMA (08:01)
--- NOTE | 2024-08-20 08:48 | P.CDIM_ITS ---
PROVIDER RESPONSE TEXT: To clarify, the appropriate diagnosis supported by the clinical indicators: CKD Stage 4 QUERY TEXT: PHYSICIAN'S DOCUMENTATION REQUEST Date of Query: 08/20/2024 08:19 AM EDT Patient Name: Yecenia Easton Admit Date: 08/14/2024 Dear Jutsin Shrestha MD, A review of the medical record indicates additional documentation may be needed. Please review below and update the documentation accordingly. Clinical Indicators: Nephrology note 08/19/24 - Patient with CKD3 at baseline. Bun 53 Cr. 2.36 Gfr 20 Progress note dated 08/19/24 - Acute on chronic anemia Iron deficiency + CKD IV Consistency of the noted stage of the CKD within the medical record: CKD Stage 3 CKD Stage 4 Other specified Other (explain) Clinically unable to determine (explain) Thank you, Meme Hendricks, CCS, CDIS Use of terms such as suspected, likely, concern for, or probable (associated with a specific diagnosis that is being evaluated, monitored, or treated as if it exists) are acceptable and can be coded in the inpatient setting, when documented at the time of discharge. Please use your independent medical judgment in providing your response. THIS QUERY IS PART OF THE PERMANENT MEDICAL RECORD
--- NOTE | 2024-08-20 09:33 | P.DS_ITS ---
DS: Providers Provider Date of Service: 08/20/24 Date of admission: 08/14/24 10:00 Date of discharge: 08/20/24 Primary care physician: Baldomero Roy PA-C Consults: 08/13/24 21:57 Consult to Gastroenterology Routine Consulting Provider: Errol Fernandes Reason for consultation: intractable vomiting, abn CT scan ? neoplasm Has provider been notified: No 08/13/24 22:57 Consult to Nephrology Routine Consulting Provider: [facility] Reason for consultation: HTN urgency, CKD stage 4 08/15/24 09:31 Consult to Psychiatry Routine Consulting Provider: [facility] Reason for consultation: depression Has provider been notified: No 08/17/24 11:23 Consult to Cardiology Routine Consulting Provider: [facility] Reason for consultation: bradycardia ,juctional beats Has provider been notified: No DS: Diagnosis Discharge Diagnosis (1) GIB (gastrointestinal bleeding): Status: Acute DS: Summary Hospital Course Hospital Course: from initial hpi: 74-year-old female with history of hypertension, CAD, PCI with stents 2019, PVD, 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 Patient has not been able to vomit and has intermittent epigastric pain that has resided. Patient does not use marijuana regularly. Patient does state she was exposed to marijuana smoke yesterday while waiting at the bus stop. Patient states that she recently had to place her mother in hospice after mother was hospitalized Sunday in [place]. This is creating an increased amount of stress for patient. Patient states similar events happened in 2019 when her sister . Patient was told she had Graves disease and received treatment. In addition patient underwent a PCI with stent to the coronary artery in 2019 as well. Patient wonders if her symptoms are related to the stress that she is undergoing now as she feels she should be with her mother at this time. Patient did receive 1 dose of Valium in the emergency department with some relief. Patient adds that she recently was told to increase her late 80 mg daily by her track repair person. Patient feels this may have been too much and only took 40 yesterday. Patient states she was out in the heat yesterday longer than expected. There is no evidence of heat exhaustion or stroke at this time. Patient does not have leukocytosis or fever. CT scan indicates thickening of the lower right colon and cecum and the terminal ileum. Differentials include infection, ischemia, inflammatory bowel disease versus neoplasm. Patient was in the emergency department July 31 with evidence of acute anemia and a hemoglobin of 6.5. Prior to that in April of 2024 patient was followed by GI for possible GI bleed and was scheduled for a colonoscopy and VCE placement for 05/21/2024. Patient stated she did undergo the colonoscopy at [facility] and was told nothing was found. Lactic acid pending Blood pressure greatly elevated on arrival. Patient has received oral hydralazine with some effect. Blood pressure currently 193 over 88. Patient denies any headache or visual changes. Troponins are now elevated. EKG sinus rhythm with marked sinus arrhythmia. T-wave inversions no longer evident in inferior and anterior lateral leads when compared to previous EKG. Echo 02/06/2024 grade I (mild) diastolic dysfunction, EF 58%. BNP pending. Repeat troponin pending. Patient was seen by Nephrology on 08/06/2024 and received 53753 units of subcutaneous Epogen. Current H and H is 8 and 28.2. Platelets 463K. Patient his last iron infusion was 1 week prior. Patient did follow with Hematology and has an upcoming appointment to review need for Eliquis. When patient was 1st diagnosed with PE/DVT she was told that she would have to be on Eliquis for the rest of her life. hospital course: Patient was admitted for nausea which resolved. Course complicated by acute on chronic anemia combination of iron-deficiency and CKD 4 there is concern for small bowel source. Patient was tested with patency capsule which passed successfully so video capsule was installed via EGD and results should be followed up outpatient. On EGD she had Schatzki's ring but no source of bleed. On colonoscopy had internal hemorrhoids. Patient had episode of bradycardia which resolved and beta-blockers were discontinued. For hypertension was continued on amlodipine, Imdur, clonidine doses were increased. For mild hypernatremia this resolved with free fluid intake. For history of DVT and PE patient is on Eliquis and will be restarted on discharge, was seen by Cardiology recommended discontinuing aspirin. hgb has stabilized, patient will be discharged home, will follow up with gi, nephro, and hematology. Time Attestation Discharge Coordination Time (in mins): 34 Quality: Safe Use of Opioids Does Pt have an Active Cancer Diagnosis on the Problem List?: No Quality: Stroke Does the patient have a stroke diagnosis?: No Physical Exam Vital Signs: Vital Signs: Last Vital Signs Temp 97.8 F 08/20/24 08:00 Pulse 67 08/20/24 08:00 Resp 18 08/20/24 08:00 BP 138/60 08/20/24 08:00 Pulse Ox 97 08/20/24 08:00 O2 Del Method Room Air 08/20/24 08:00 BMI result Body Mass Index 24.0 Const: General: comfortable and no acute distress Resp: Effort & Inspection: normal respiratory effort and able to speak in complete sentences Auscultation: clear to auscultation bilaterally Cardio: Rate: regular rate Rhythm: regular rhythm Heart sounds: S1 normal heart sound present and S2 normal heart sound present GI: Palpation (GI): Soft to palpation and nontender : General: Yes no CVA tenderness Back/Spine/Pelvis: Back: no CVA tenderness Skin: Rashes: no rashes Extrem: General: Yes edema (+1 BLE edema, pitting) DS: Data Data Completed and Pending Completed studies during hospitalization [Text1]: Procedures Excision of Duodenum, Via Natural or Artificial Opening Endoscopic, Diagnostic (05/08/24) Inspection of Lower Intestinal Tract, Via Natural or Artificial Opening Endoscopic (05/08/24) Inspection of Right Knee Joint, Percutaneous Approach (05/08/24) Transfusion of Nonautologous Red Blood Cells into Peripheral Vein, Percutaneous Approach (05/08/24) Labs on day of discharge: Laboratory Results - last 24 hr 08/20/24 06:04 WBC 5.6 RBC 3.06 L Hgb 8.2 L Hct 27.0 L MCV 88.2 MCH 26.8 L MCHC 30.4 L RDW 16.9 H Plt Count 308 MPV 9.7 Absolute Nucleated RBC 0.000 Nucleated RBC % (auto) 0.0 Sodium 141 Potassium 3.8 Chloride 103 Carbon Dioxide 29 Anion Gap 13 BUN 29 H Creatinine 2.31 H Estim Creat Clear Calc 21.8 Estimated GFR 21 Random Glucose 111 Calcium 8.7 Discharge Plan Discharge Anticipated Discharge Date/Time: 08/20/24 09:24 Patient Disposition: Home, Self-Care Discharge Diagnosis: anemia Referrals: Baldomero Roy PA-C [Primary Care Provider, Internal Medicine] - 1 Week Alison Spear MD [Physician, Gastroenterology] - 1 Week Discharge Medications: New isosorbide mononitrate 30 mg Tablet Extended Release 24 Hr 90 mg PO DAILY Qty: 90 0RF Protocol: Hold for SBP< HOLD for SBP < : 90 amlodipine 5 mg Tablet 5 mg PO BID Qty: 90 0RF Protocol: Hold for SBP< HOLD for SBP < : 90 furosemide 20 mg Tablet 20 mg PO BID Qty: 0 0RF Protocol: Hold for SBP< HOLD for SBP < : 90 Konvomep 2-84 mg/mL Suspension For Reconstitution 10 ml PO BID@0630,1630 90 Days Qty: 1800 0RF Continued prednisone 5 mg tablet 5 mg PO DAILY 10 Days Qty: 10 0RF Rx Instructions: 10 DAY TREATMENT STARTING ON 08/05 oxycodone 10 mg tablet 10 mg PO Q6H PRN (Reason: knee pain) Qty: 15 0RF Rx Instructions: Partial Fill upon patient request. clonidine HCl 0.1 mg tablet 0.1 mg PO TID acetaminophen 500 mg Tablet 1,500 mg PO DAILY PRN (Reason: Pain) Eliquis 2.5 mg tablet 2.5 mg PO BID (DME) Knee Support Brace Misc See Rx Instructions .Route Qty: 1 0RF Rx Instructions: As directed Right hinged knee brace Dx: osteoarthritis knee ascorbate calcium (vitamin C) 500 mg tablet 1 g PO MOFR mecobalamin (vitamin B12) 1,000 mcg tablet,chewable 1,000 mcg PO DAILY Discontinued isosorbide mononitrate 30 mg tablet extended release 24 hr 30 mg PO TID Qty: 270 3RF aspirin 81 mg tablet,chewable 1 tab PO DAILY furosemide 20 mg tablet 20 mg PO TID metoprolol tartrate 50 mg tablet 100 mg PO BID Discharge Orders: Discharge Order (Routine); Ordered 08/20/24 Ordered By: Justin Shrestha Diet: Advance to usual diet Activity on Discharge: As tolerated Stand Alone Forms: Patient Portal Discharge page Print Language: Chinese Care Plan Goals: maange anemia Health Concerns: anemia Plan of Treatment: follow up with hematology, gi, and nephro, rechallenge with eliquis Assessment: see above Patient Instructions: Carvedilol (By mouth)
--- NOTE | 2024-08-20 09:47 | P.PNNP_ITS ---
Subjective Subjective Date of Service: 08/20/24 Interval history: following for uncontrolled hypertension. Pt with CKD3 at baseline, pt of Dr Boyer. she states she is doing ok today. Ongoing distress over personal situation at home- mother is on hospice, hoping to leave the hospital soon to be with her. blood pressures have improved- pt agreed to start lower dose of lasix, declines increase back to outpatient dose at this time. Creatinine has gone down with addition of diuretic, discussed this with patient. Denies other concerns/complaints today. Physical Exam 2 Vital Signs: Vital Signs: Last Vital Signs Temp 97.8 F 08/20/24 08:00 Pulse 67 08/20/24 08:00 Resp 18 08/20/24 08:00 BP 138/60 08/20/24 08:00 Pulse Ox 97 08/20/24 08:00 O2 Del Method Room Air 08/20/24 08:00 BMI result Body Mass Index 24.0 Const: General: comfortable and no acute distress Resp: Effort & Inspection: normal respiratory effort and able to speak in complete sentences Auscultation: clear to auscultation bilaterally Cardio: Rate: regular rate Rhythm: regular rhythm Heart sounds: S1 normal heart sound present and S2 normal heart sound present GI: Palpation (GI): Soft to palpation and nontender : General: Yes no CVA tenderness Back/Spine/Pelvis: Back: no CVA tenderness Skin: Rashes: no rashes Extrem: General: Yes edema (+1 BLE edema, pitting) Objective Data Labs 08/20/24 06:04 08/20/24 06:04 Labs: Laboratory Results - last 24 hr 08/20/24 06:04 WBC 5.6 RBC 3.06 L Hgb 8.2 L Hct 27.0 L MCV 88.2 MCH 26.8 L MCHC 30.4 L RDW 16.9 H Plt Count 308 MPV 9.7 Absolute Nucleated RBC 0.000 Nucleated RBC % (auto) 0.0 Sodium 141 Potassium 3.8 Chloride 103 Carbon Dioxide 29 Anion Gap 13 BUN 29 H Creatinine 2.31 H Estim Creat Clear Calc 21.8 Estimated GFR 21 Random Glucose 111 Calcium 8.7 Procedures Date of Service Date of Service: 08/20/24 Assessment & Plan Assessment and plan (1) Hypertension: Status: Acute (2) CKD (chronic kidney disease) stage 3, GFR 30-59 ml/min: Status: Acute Plan Hypertensive urgency after holding diuretic due to nausea/malaise. Resolved. patient has coronary artery disease, LE edema is worsening discussed importance of maintaining proper fluid balance, patient continues to appear slightly fluid overloaded. Discussed importance of maintaining proper fluid balance, discussed renal function has improved with addition of lasix. Pt agreeable to continue current dose but declines increase in lasix at this time. She is agreeable to follow up in the nephrology office in 2 weeks; declines sooner appointment as her mother is on hospice. Will continue remainder of antihypertensive regimen. Patient's blood pressures are well controlled at this time. CKD remains at baseline avoid nephrotoxic substances Continue supportive care Discussed with Dr Schumacher. Time Spent With Patient Time: Total time managing care of this patient today ____ minutes. Progress Note: Quality Stroke Does the patient have a stroke diagnosis?: No Reason for No Anti-thrombotic by Day Two: N/A - Med Ordered
--- NOTE | 2024-08-20 10:14 | MHC.CM.PN ---
Second IMM given 08/20. Pt is medically cleared for discharge home today via Lyft ride.
== END 2024-08-20 13:07 | disposition home or self-care (01) | DRG 305 ==
LOC: HO.ED 12:38 → HO.EDOVER 21:57 → HO.S3 23:42
PROVIDERS: Internal Medicine; Internal Medicine Gastroenterology; Nurse Practitioner Family; Admitting Provider Student in an Organized Health Care Education/Training Program; Emergency Provider Emergency Medicine; PCP Physician Assistant; Visit Provider Internal Medicine
PROC: 0DJ08ZZ Inspection of Upper Intestinal Tract, Via Natural or Artificial Opening Endoscopic (ICD-10-PCS; CPT 43235; principal; 2024-08-18 11:40)
DX: I16.0 Hypertensive urgency (principal); I50.32 Chronic diastolic (congestive) heart failure; E87.0 Hyperosmolality and hypernatremia; N18.4 Chronic kidney disease, stage 4 (severe); D50.9 Iron deficiency anemia, unspecified; I13.0 Hypertensive heart and chronic kidney disease with heart failure and stage 1 through stage 4 chronic kidney disease, or unspecified chronic kidney disease; F43.21 Adjustment disorder with depressed mood; K31.7 Polyp of stomach and duodenum; I83.91 Asymptomatic varicose veins of right lower extremity; Z20.822 Contact with and (suspected) exposure to COVID-19; D63.1 Anemia in chronic kidney disease; M17.11 Unilateral primary osteoarthritis, right knee; K25.9 Gastric ulcer, unspecified as acute or chronic, without hemorrhage or perforation; K22.2 Esophageal obstruction; R00.1 Bradycardia, unspecified; K44.9 Diaphragmatic hernia without obstruction or gangrene; K64.0 First degree hemorrhoids; Z87.891 Personal history of nicotine dependence; I25.10 Atherosclerotic heart disease of native coronary artery without angina pectoris; Z95.5 Presence of coronary angioplasty implant and graft; Z86.711 Personal history of pulmonary embolism; Z86.718 Personal history of other venous thrombosis and embolism; Z79.01 Long term (current) use of anticoagulants; Z79.899 Other long term (current) drug therapy
CPT/HCPCS: 36415; 74018; 74176; 80048; 80053; 81001; 81003; 82248; 82784; 83036; 83605; 83690; 83735; 84439; 84443; 84484; 85014; 85018; 85025; 85027; 86334; 86850; 86870; 86900; 86901; 86902; 86920; 86922; 87633; 93005; 99221; 99285; J0131; J0360; J2003; J2405; J2704; J2765; J3010; J3360; J3480; J7120; P9016; P9047; Q5106

== ENCOUNTER → 2024-08-13 16:10 | Outpatient (BNV) | payer MEDICARE, MEDICAID, SELFPAY | PROVIDERS: Admitting Provider Student in an Organized Health Care Education/Training Program; Emergency Provider Emergency Medicine; PCP Physician Assistant; Visit Provider Internal Medicine | DX: I49.9 Cardiac arrhythmia, unspecified (principal) | CPT/HCPCS: 93010 ==

== ENCOUNTER → 2024-08-13 16:20 | Outpatient (BNV) | payer MEDICARE, MEDICAID, SELFPAY | PROVIDERS: Emergency Provider Emergency Medicine; Visit Provider Radiology Diagnostic Radiology | DX: R10.13 Epigastric pain (principal) | CPT/HCPCS: 74176 ==

== ENCOUNTER → 2024-08-13 21:48 | Outpatient (BNV) | payer MEDICARE, MEDICAID, SELFPAY | PROVIDERS: Admitting Provider Student in an Organized Health Care Education/Training Program; Emergency Provider Emergency Medicine; Visit Provider Nurse Practitioner Family | DX: I10 Essential (primary) hypertension (principal); N18.31 Chronic kidney disease, stage 3a; R11.0 Nausea | CPT/HCPCS: 99223; 99231; 99232 ==

== ENCOUNTER 2024-08-14 10:00 | Outpatient (BNV) | payer MEDICARE, MEDICAID, SELFPAY | END 2024-08-18 19:00 | PROVIDERS: Admitting Provider Student in an Organized Health Care Education/Training Program; Emergency Provider Emergency Medicine; PCP Physician Assistant; Visit Provider Radiology Diagnostic Radiology | DX: Z79.01 Long term (current) use of anticoagulants (principal); K62.89 Other specified diseases of anus and rectum | CPT/HCPCS: 74018 ==

== ENCOUNTER 2024-08-14 10:00 | Outpatient (BNV) | payer MEDICARE, MEDICAID, SELFPAY | END 2024-08-19 07:00 | PROVIDERS: Admitting Provider Student in an Organized Health Care Education/Training Program; Emergency Provider Emergency Medicine; PCP Physician Assistant; Visit Provider Radiology Diagnostic Radiology | DX: Z98.890 Other specified postprocedural states (principal) | CPT/HCPCS: 74018 ==

== ENCOUNTER → 2024-08-14 10:00 | Outpatient (BNV) | payer MEDICARE, MEDICAID, SELFPAY | PROVIDERS: Admitting Provider Student in an Organized Health Care Education/Training Program; Emergency Provider Emergency Medicine; Visit Provider Nurse Practitioner Family | DX: I16.0 Hypertensive urgency (principal); N18.31 Chronic kidney disease, stage 3a | CPT/HCPCS: 99221 ==

== ENCOUNTER → 2024-08-14 10:00 | Outpatient (BNV) | payer MEDICARE, MEDICAID, SELFPAY | PROVIDERS: Admitting Provider Student in an Organized Health Care Education/Training Program; Emergency Provider Emergency Medicine; PCP Physician Assistant; Visit Provider Internal Medicine Gastroenterology | DX: R11.0 Nausea (principal); K92.2 Gastrointestinal hemorrhage, unspecified | CPT/HCPCS: 99222 ==

== ENCOUNTER → 2024-08-14 10:00 | Outpatient (BNV) | payer MEDICARE, MEDICAID, SELFPAY | PROVIDERS: Admitting Provider Student in an Organized Health Care Education/Training Program; Emergency Provider Emergency Medicine; PCP Physician Assistant; Visit Provider Internal Medicine | DX: I13.10 Hypertensive heart and chronic kidney disease without heart failure, with stage 1 through stage 4 chronic kidney disease, or unspecified chronic kidney disease (principal); I25.811 Atherosclerosis of native coronary artery of transplanted heart without angina pectoris; N18.32 Chronic kidney disease, stage 3b; D63.1 Anemia in chronic kidney disease; R00.1 Bradycardia, unspecified | CPT/HCPCS: 99223 ==

== ENCOUNTER → 2024-08-14 10:00 | Outpatient (BNV) | payer MEDICARE, MEDICAID, SELFPAY | PROVIDERS: Admitting Provider Student in an Organized Health Care Education/Training Program; Emergency Provider Emergency Medicine; PCP Physician Assistant; Visit Provider Social Worker | DX: F43.21 Adjustment disorder with depressed mood (principal) | CPT/HCPCS: 99232 ==

== ENCOUNTER → 2024-08-14 10:00 | Outpatient (BNV) | payer MEDICARE, MEDICAID, SELFPAY | PROVIDERS: Admitting Provider Student in an Organized Health Care Education/Training Program; Emergency Provider Emergency Medicine; PCP Physician Assistant; Visit Provider Internal Medicine Gastroenterology | DX: K92.2 Gastrointestinal hemorrhage, unspecified (principal); K22.2 Esophageal obstruction; K64.0 First degree hemorrhoids | CPT/HCPCS: 43235; 45330; 91110; 99232 ==

== ENCOUNTER 2024-08-29 12:54 | Outpatient (AMB) | payer MEDICARE, MEDICAID, SELFPAY ==
--- OUTSIDE RECORDS SUMMARY | 2024-08-29 12:57 | XMS_ITS | Clinical Summary ---
Author Organization [employer] Address [address] [place] [address] Care Team Providers Care Registered Nurse Surgical Services Name Role Phone Unavailable Primary Care Provider [...] 06/02/2020, Additional history exists Influenza Vaccine (#1) 2024 RSV Patients and Patients Aged 60 [...]
--- OUTSIDE RECORDS SUMMARY | 2024-08-29 12:57 | XMS_ITS | Clinical Summary ---
Author Organization [facility] Address [address] [place] [address] [place] [address] Phone Care Team Providers Care Training And Development Officer Name Role Phone Marychuy Ríos MD Primary Care Provider [phone] Allergies Active Allergy Reactions Criticality Noted Date [...] Cancer Screening: Sigmoidoscopy 01/02/2000 Influenza Vaccine (#1) 2024 Insurance Medicare Medicaid [place] Care Teams Training And Development Officer Relationship Specialty Start Date End Date Marychuy Ríos MD [address] [place] [id number] PCP - General Internal Medicine 11/03/20
--- NOTE | 2024-08-29 12:59 | A.OFFPC_ITS ---
Vital Signs 08/29/24 13:01 Height 5 ft 8 in Weight 157 lb 4 oz BMI 23.9 BP 160/68 H Blood Pressure Location Lt brachial Position Sitting Pulse 74 Pulse Source Pulse Oximeter Temp 97.3 F Temp Source Temporal Artery Scan Pulse Oximetry (%) 98 Oxygen Delivery Method Room Air Intake Visit Reasons: [facility] 08/20 abdominal pain Event Producer Required: No Accompanied by: Self / Same As Patient Allergies codeine Allergy (Intermediate, Verified 08/29/24 13:07) Nausea latex Allergy (Intermediate, Verified 08/29/24 13:07) Rash hydrochlorothiazide Allergy (Unknown, Verified 08/29/24 13:07) Unknown morphine Allergy (Unknown, Verified 08/29/24 13:07) Nausea SHAYY Inhibitors Adverse Reaction (Unknown, Verified 08/29/24 13:07) Unknown Tobacco use date assessed: 08/29/24 Fall risk assessment: No Falls in past year Last assessed Fall Risk: 08/29/24 Dental Screening Dental Screen Date: 08/29/24 Did you have a dental visit in the last 12 months?: Yes Did you have a dental problem in the last 6 months where you did not have access to dental care?: No Was dental information given to patient?: Patient has dentist HPI [facility] Information Date of Discharge 08/20/24 Discharged From [facility] Interactive Contact Date (Reference documentation from this date) 08/21/24 [facility] Medical History Graves disease CAD (coronary artery disease) Osteoarthritis Hx of transfusion of packed red blood cells Diet-controlled diabetes mellitus Pulmonary embolism DVT (deep venous thrombosis) Anemia in chronic kidney disease Hypertension CKD (chronic kidney disease) stage 3, GFR 30-59 ml/min Surgical History Hx of heart artery stent History of partial hysterectomy Family History Maternal Grandfather Stomach cancer Social History Household Members: None Housing: Apartment Do you presently have visiting nurse or other home services: No Alcohol intake: never Patient Tobacco Use Status: Former Tobacco user Tobacco use type: Cigarette e-Cigarette/Vaping Use: Never Used service: No Current occupational status: retired Cognitive needs: No Hearing needs: Yes Vision needs: No Questionnaire Thrive Questionnaire Date Thrive assessed: 08/15/24 I am a: Patient What is your living situation today?: I have a steady place to live Within the past 12 months, did the food you bought not last and you didn't have the money to get more?: Never true Within the past 12 months, did you worry whether your food would run out before you got money to buy more?: Never true Do you have trouble paying for medicines?: No Do you have trouble getting transportation to medical appointments?: No Do you have trouble paying your heating and electricity bill?: No Do you have trouble taking care of your child, family member or friend?: Yes Do you have trouble with day-to-day activities such as bathing, preparing meals, shopping, managing finances, etc.?: No Are you currently unemployed and looking for a job?: No Are you interested in more education?: No Please select the resources that you would like help with: None Currently or been in a relationship where the following occur: No concerns reported THRIVE Score: 0 SHELIA-7 AMB Questionnaire SHELIA-7 Date SHELIA - 7 assessed: 07/02/24 Source: Developed by Drs. Raphael Beyer, Josiane Soto, Gerry Burdick and colleagues, with an educational usama from [employer]. Physical exam (Primary Care) Vital Signs: Last Vital Signs Temp 97.3 F 08/29/24 13:01 Pulse 74 08/29/24 13:01 BP 160/68 H 08/29/24 13:01 Pulse Ox 98 08/29/24 13:01 Oxygen Delivery Method Room Air 08/29/24 13:01 BMI result Body Mass Index 23.9 Tobacco/Smoking Status: Tobacco use Status Tobacco use date assessed 08/29/24 08/29/24 13:09 Patient Tobacco Use Status Former Tobacco user 08/29/24 13:01 Tobacco use type Cigarette 08/29/24 13:01 e-Cigarette/Vaping Use Never Used 08/29/24 13:09 Thrive Assessment: Date of Thrive Assessment Date Thrive assessed 08/15/24 08/29/24 13:01 Currently or been in a relationship where the following occur: No concerns reported Const General: alert; No acute distress HENMT Other: impacted cerumen bilateral Eyes Conjunctivae: conjunctivae normal Resp Auscultation: clear to auscultation bilaterally Cardio Rate: regular rate Rhythm: regular rhythm GI Inspection: Yes normal to inspection Extrem General: Yes normal to inspection and No edema Office Procedures Cerumen Removal From which ear canal was the cerumen removed: bilateral Removal: irrigation, otoscope w/curette, cerumen loop/spoon and other Notes: patient tolerated procedure well, no complications and ear canal clear [id number] Irrigation/Lavage Coding Level of Care Code Est Pt Level 4 (89762) Diagnoses Primary hypertension I10 Hypertension type: primary hypertension Coronary artery disease involving [place]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 vs. transplanted heart: transplanted heart Associated angina: without angina Stage 3a chronic kidney disease N18.31 Chronic kidney disease stage 3 subtype: stage 3a (GFR 45-59) Anemia in stage 3b chronic kidney disease N18.32; D63.1 Chronic kidney disease stage: stage 3 (moderate) Chronic kidney disease stage 3 subtype: stage 3b (GFR 30-44) Epigastric abdominal pain R10.13 Primary osteoarthritis of right knee M17.11 Osteoarthritis type: primary Impacted cerumen of both ears H61.23 CPT Codes Office Procedure - CPT: 91594-Ipr Irrigation/Lavage ([id number]) Assessment & Plan Assessment & Plan (1) Hypertension: Code(s): I10 - Essential (primary) hypertension Category: Medical Qualifiers: Hypertension type: primary hypertension Qualified Code(s): I10 - Essential (primary) hypertension Plan: Patient is on amlodipine 5 mg twice a day with clonidine 0.1 mg 3 times a day isosorbide mononitrate 90 mg once a day (2) CAD (coronary artery disease): Code(s): I25.10 - Atherosclerotic heart disease of [place] coronary artery without angina pectoris Category: Medical Qualifiers: Coronary Disease-Associated Artery/Lesion type: [place] artery [place] vs. transplanted heart: transplanted heart Associated angina: without angina Qualified Code(s): I25.811 - Atherosclerosis of [place] coronary artery of transplanted heart without angina pectoris Plan: Control the cholesterol, weight, blood pressur continue with anticoagulation Eliquis 2.5 mg twice a day (3) CKD (chronic kidney disease) stage 3, GFR 30-59 ml/min: Code(s): N18.30 - Chronic kidney disease, stage 3 unspecified Category: Medical Qualifiers: Chronic kidney disease stage 3 subtype: stage 3a (GFR 45-59) Qualified Code(s): N18.31 - Chronic kidney disease, stage 3a Plan: Continue to follow-up with Nephrology on Procrit for the blood count (4) Anemia in chronic kidney disease: Code(s): N18.9 - Chronic kidney disease, unspecified; D63.1 - Anemia in chronic kidney disease Category: Medical Qualifiers: Chronic kidney disease stage: stage 3 (moderate) Chronic kidney disease stage 3 subtype: stage 3b (GFR 30-44) Qualified Code(s): N18.32 - Chronic kidney disease, stage 3b; D63.1 - Anemia in chronic kidney disease Plan: On Procrit continue to monitor blood count (5) Epigastric abdominal pain: Code(s): R10.13 - Epigastric pain Category: Medical Plan: resolved (6) Osteoarthritis of right knee: Comment: Uncontrolled knee pain. She has failed 1 cortisone injection and hyaluronic acid injection, gel 1. We discussed medical management of knee osteoarthritis. She has temporary benefit with Tylenol. Pain is uncontrolled and she would not be able to participate in physical therapy. We discussed the importance of bracing and trying to control edema in legs to enable improved ambulation. We discussed in setting of CKD she has limited with medications to use. Contraindication to oral NSAIDs and duloxetine. We discussed considering gabapentin. Discussed side effects, benefits and drug monitoring. We also discussed considering geniculate nerve block with pain management referral. She would like to proceed with trying gabapentin. Code(s): M17.11 - Unilateral primary osteoarthritis, right knee Category: Medical Qualifiers: Osteoarthritis type: primary Qualified Code(s): M17.11 - Unilateral primary osteoarthritis, right knee (7) Impacted cerumen of both ears: Code(s): H61.23 - Impacted cerumen, bilateral Category: Medical Plan: irrigation done and TM intact bilateral Plan History of Present Illness The patient is a 74-year-old female presenting for an acute problem and management of chronic conditions. 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 Her renal function has been stable with a creatinine level of 2.3, although it has previously increased to 2.5-2.6 due to diuretic use. She is under nephrology care and has been advised to continue monitoring her renal function. The patient has anemia of chronic disease, with a hemoglobin level of 8, which is below the desired level of 10. She is on Procrit to manage her anemia and is advised to continue monitoring her blood count. The patient has a history of hypertension, with recent blood pressure readings as high as 232/100 mmHg. She is on multiple antihypertensive medications, including amlodipine and clonidine, and has been advised not to miss doses to avoid rebound hypertension. The patient has a history of coronary artery disease and has undergone angioplasty and stenting. She is on anticoagulation therapy with Eliquis and has been advised to avoid aspirin due to her history of gastrointestinal bleeding. The patient has a history of pulmonary embolism and is on lifelong anticoagulat ion therapy. The patient has end stage degenerative arthritis in her knee, causing significant pain and mobility issues. She has been prescribed oxycodone for pain management and is considering knee replacement surgery. Health Maintenance - Blood pressure management: Emphasis on medication adherence to prevent rebound hypertension - Anticoagulation therapy: Continued use of Eliquis, avoidance of aspirin due to bleeding risk - Renal function monitoring: Regular follow-up with nephrology - Anemia management: Continued use of Procrit and monitoring of blood count - Cholesterol management: Consideration of non-statin medication Zetia to lower LDL cholesterol Social History - Diet: Primarily vegetarian, avoids fats and meats, consumes organic foods - Exercise: Previously active, currently limited due to knee pain - Family: Recently cared for mother, who has Review of Systems - Cardiovascular: Reports elevated blood pressure, denies chest pain - Gastrointestinal: Reports no abdominal pain, denies vomiting - Musculoskeletal: Reports severe knee pain, limited mobility - Neurological: Denies dizziness or syncope - Hematological: Reports anemia, denies bleeding Physical Exam - Abdominal: Mild epigastric tenderness, soft, no guarding, negative Gee sign, no rebound - Cardiovascular: Heart auscultation performed - Respiratory: Lungs clear to auscultation bilaterally - Ear: Presence of earwax noted, approximately 50% occlusion Results - Labs: Hemoglobin 8, creatinine 2.3, sodium 149, normal platelets - Imaging: Thickening of the lower right colon and sacrum, splenic lesion noted Plan The patient will continue with her current antihypertensive regimen, including amlodipine and clonidine, with an emphasis on adherence to prevent rebound hypertension. She will remain on Eliquis for anticoagulation, avoiding aspirin due to her history of gastrointestinal bleeding. Regular follow-up with nephrology is advised to monitor renal function, and Procrit will be continued for anemia management. For her knee pain, oxycodone will be prescribed, and she is considering knee replacement surgery. Cholesterol management will include consideration of Zetia to lower LDL cholesterol, with a follow-up cholesterol test in three months. Patient was informed and verbally consented to the use of an ambient scribe for clinic note documentation during this visit. Discussion Notes I discussed with the patient the importance of adhering to her antihypertensive medication regimen to prevent rebound hypertension and the risks associated with missing doses, particularly with clonidine. We reviewed her anticoagulation therapy with Eliquis, emphasizing the need to avoid aspirin due to her history of gastrointestinal bleeding and the potential for increased bleeding risk. The patient was advised to continue follow-up with nephrology to monitor her renal function and to maintain her Procrit therapy for anemia management. We discussed her knee pain management, including the use of oxycodone and the potential for knee replacement surgery. Cholesterol management options were discussed, including the use of Zetia as a non-statin alternative, and a follow-up choleste rol test was planned for three months. Patient Instructions - Take all prescribed medications as directed, especially clonidine, to prevent rebound hypertension. - Avoid aspirin and other NSAIDs to reduce the risk of gastrointestinal bleeding. - Follow up with nephrology regularly to monitor kidney function. - Continue Procrit therapy and monitor blood counts as advised. - Consider Zetia for cholesterol management and schedule a follow-up cholesterol test in three months. - Discuss knee replacement surgery options with your banking specialist. Orders: Orders Lipid Panel 3 Months E78.00 - Pure hypercholesterolemia, unspecified, I25.811 - Atherosclerosis of [place] coronary artery of transplanted heart without angina pectoris Comprehensive Met. Panel 3 Months I25.811 - Atherosclerosis of [place] coronary artery of transplanted heart without angina pectoris Complete Blood Count Auto Diff 3 Months I25.811 - Atherosclerosis of [place] coronary artery of transplanted heart without angina pectoris Ferritin 3 Months I25.811 - Atherosclerosis of [place] coronary artery of transplanted heart without angina pectoris Thyroid Stimulating Hormone 3 Months I25.811 - Atherosclerosis of [place] coronary artery of transplanted heart without angina pectoris Free T4 (Free Thyroxine) 3 Months I25.811 - Atherosclerosis of [place] coronary artery of transplanted heart without angina pectoris Vitamin B12 and Folate 3 Months I25.811 - Atherosclerosis of [place] coronary artery of transplanted heart without angina pectoris Vitamin D 25-OH Total 3 Months I25.811 - Atherosclerosis of [place] coronary artery of transplanted heart without angina pectoris IRON PROFILE 3 Months I25.811 - Atherosclerosis of [place] coronary artery of transplanted heart without angina pectoris Reticulocyte Count 3 Months I25.811 - Atherosclerosis of [place] coronary artery of transplanted heart without angina pectoris Medications: New ezetimibe (Zetia) 10 mg PO DAILY 30 tabs 4RF I2.811 - Atherosclerosis of [place] coronary artery of transplanted heart without angina pectoris Changed From oxycodone Partial Fill upon patient request. 10 mg PO Q6H PRN 15 tabs 0RF knee pain M17.11 - Unilateral primary osteoarthritis, right knee To oxycodone Partial Fill upon patient request. 10 mg PO BID PRN 30 tabs 0RF knee pain M17.11 - Unilateral primary osteoarthritis, right knee
[2024-08-29 13:01] VITALS: BP 160/68; PULSE 74; TEMP 36.3; O2SAT 98; BMI 23.9
== END 2024-08-29 14:20 | disposition home or self-care (01) ==
LOC: HO.HMCH 12:55
PROVIDERS: PCP Physician Assistant; Visit Provider Internal Medicine
DX: I12.9 Hypertensive chronic kidney disease with stage 1 through stage 4 chronic kidney disease, or unspecified chronic kidney disease (principal); I25.811 Atherosclerosis of native coronary artery of transplanted heart without angina pectoris; N18.31 Chronic kidney disease, stage 3a; N18.32 Chronic kidney disease, stage 3b; D63.1 Anemia in chronic kidney disease; R10.13 Epigastric pain; M17.11 Unilateral primary osteoarthritis, right knee; H61.23 Impacted cerumen, bilateral

== ENCOUNTER → 2024-08-29 12:54 | Outpatient (BNVA) | payer MEDICARE, MEDICAID, SELFPAY | PROVIDERS: PCP Physician Assistant; Visit Provider Internal Medicine | DX: I12.9 Hypertensive chronic kidney disease with stage 1 through stage 4 chronic kidney disease, or unspecified chronic kidney disease (principal); N18.32 Chronic kidney disease, stage 3b; D63.1 Anemia in chronic kidney disease; N25.81 Secondary hyperparathyroidism of renal origin; R80.8 Other proteinuria; E61.1 Iron deficiency; R60.0 Localized edema; I25.811 Atherosclerosis of native coronary artery of transplanted heart without angina pectoris; R10.13 Epigastric pain; M17.11 Unilateral primary osteoarthritis, right knee; H61.23 Impacted cerumen, bilateral | CPT/HCPCS: 69210; 96372; 99212; J0885 ==

== ENCOUNTER 2024-08-29 14:19 | Outpatient (AMB) | payer MEDICARE, MEDICAID, SELFPAY ==
--- NOTE | 2024-08-29 14:10 | HO.NEPHOV_ITS ---
Vital Signs 08/29/24 14:37 08/29/24 14:37 Height 5 ft 8 in Weight 158 lb BMI 24.0 BP 170/70 H 170/70 H Blood Pressure Location Rt brachial Rt brachial Position Sitting Sitting Pulse 63 63 Pulse Source Pulse Oximeter Pulse Oximeter Pulse Oximetry (%) 98 96 Oxygen Delivery Method Room Air Room Air Intake Visit Reasons: F/U Orthotics Assistant Required: No Accompanied by: Self / Same As Patient Allergies codeine Allergy (Intermediate, Verified 08/29/24 14:34) Nausea latex Allergy (Intermediate, Verified 08/29/24 14:34) Rash hydrochlorothiazide Allergy (Unknown, Verified 08/29/24 14:34) Unknown morphine Allergy (Unknown, Verified 08/29/24 14:34) Nausea SHAYY Inhibitors Adverse Reaction (Unknown, Verified 08/29/24 14:34) Unknown HPI Comments Details: Yecenia is a 74-year-old female with a PMH significant for?CAD s/p stenting 2018, hx of DVT with pulmonary embolism 2017 on Eliquis, HTN, HLD, CKD 3, chronic anemia requiring transfusions in the past, diet-controlled diabetes type 2, osteoarthritis, and chronic lower leg edema was seen for F/U today. She was [place] [facility] [place] and [place], uncontrolled hypertension after stopping her furosemide as she felt it was causing constipation and fatigue. She has been needing PRBC transfusions- she has had a colonoscopy at [facility] and an upper endoscopy and sig[place] [facility] [place] while in the hospital- no source of bleeding found, capsule study findings pending per most recent GI notes. Patient also expressed her frustration about ongoing right knee and leg pain and swelling afternoon undergoing intra-articular steroids. She was seen by orthopedic service and pain management as an outpatient. Unfortunately, Yecenia's mother last week, she states she is doing ok, greiving. She reports her lower extremity swelling has worsened a bit. She denies shortness of breath, chest pain, orthopnea. No new urinary symptoms. Denies other new complaints/concerns. [facility] Medical History Graves disease CAD (coronary artery disease) Osteoarthritis Hx of transfusion of packed red blood cells Diet-controlled diabetes mellitus Pulmonary embolism DVT (deep venous thrombosis) Anemia in chronic kidney disease Hypertension CKD (chronic kidney disease) stage 3, GFR 30-59 ml/min Surgical History Hx of heart artery stent History of partial hysterectomy Family History Maternal Grandfather Stomach cancer Social History Household Members: None Housing: Apartment Do you presently have visiting nurse or other home services: No Alcohol intake: never Patient Tobacco Use Status: Former Tobacco user Tobacco use type: Cigarette e-Cigarette/Vaping Use: Never Used service: No Current occupational status: retired Cognitive needs: No Hearing needs: Yes Vision needs: No Review of Systems Const All systems reviewed & are unremarkable except as noted in HPI and below Physical Exam Vital Signs: Last Vital Signs Pulse 63 08/29/24 14:37 BP 170/70 H 08/29/24 14:37 Pulse Ox 96 08/29/24 14:37 Oxygen Delivery Method Room Air 08/29/24 14:37 BMI result Body Mass Index 24.0 Const General: no acute distress and alert Orientation/consciousness: patient oriented x3 Eyes EOM: EOMs intact bilaterally Neck Neck: Yes supple Resp Auscultation: clear to auscultation bilaterally Cardio Rate: regular rate GI Palpation (GI): Soft to palpation Neuro General: patient oriented x3 Extrem General: Yes edema Office Meds epoetin walt 10,000 unit/mL injection solution Performing Provider: Dianne Ball DNP, FNP-BC [place] [facility] [place] [facility] Administered by: Dianne Ball DNP, FNP-BC on 08/29/24 15:43 Dose Route Admin Location Dispensed Lot Number Expiration Date [facility] [employer]eg[employer] 40,000 unit subcut LUE 4 mL [id number] 03/22/26 [id number] [employer] Total Dispensed Waste 4 mL 0 % Results Reviewed Nephrology Results: Hgb, (12.0-16.0) 8.2 g/dl L 08/20/24 WBC, (4.8-10.8) 5.6 X10*3/uL 08/20/24 Plt Count, (160-400) 308 X10*3/uL 08/20/24 Sodium, (135-145) 141 mmol/L 08/20/24 Potassium, (3.3-5.1) 3.8 mmol/L 08/20/24 Chloride, (96-108) 103 mmol/L 08/20/24 Carbon Dioxide, (22-29) 29 mmol/L 08/20/24 BUN, (9-16) 29 mg/dL H 08/20/24 Creatinine, (0.5-1.4) 2.31 mg/dL H 08/20/24 Calcium, (8.4-10.2) 8.7 mg/dL 08/20/24 Urine Protein, (Neg-Trace) >=1000 (4+) mg/dL H 08/14/24 Assessment & Plan Assessment & Plan (1) Anemia in chronic kidney disease: Code(s): N18.9 - Chronic kidney disease, unspecified; D63.1 - Anemia in chronic kidney disease Category: Medical Qualifiers: Chronic kidney disease stage: stage 3 (moderate) Chronic kidney disease stage 3 subtype: stage 3b (GFR 30-44) Qualified Code(s): N18.32 - Chronic kidney disease, stage 3b; D63.1 - Anemia in chronic kidney disease (2) Secondary hyperparathyroidism (of renal origin): Code(s): N25.81 - Secondary hyperparathyroidism of renal origin Category: Medical (3) CKD (chronic kidney disease) stage 3, GFR 30-59 ml/min: Code(s): N18.30 - Chronic kidney disease, stage 3 unspecified Category: Medical Qualifiers: Chronic kidney disease stage 3 subtype: stage 3a (GFR 45-59) Qualified Code(s): N18.31 - Chronic kidney disease, stage 3a (4) Proteinuria: Code(s): R80.9 - Proteinuria, unspecified Category: Medical Qualifiers: Proteinuria type: other Qualified Code(s): R80.8 - Other proteinuria (5) Iron deficiency: Code(s): E61.1 - Iron deficiency Category: Medical (6) Edema: Code(s): R60.9 - Edema, unspecified Category: Medical Qualifiers: Edema type: localized Qualified Code(s): R60.0 - Localized edema (7) Hypertension: Code(s): I10 - Essential (primary) hypertension Category: Medical Qualifiers: Hypertension type: primary hypertension Qualified Code(s): I10 - Essential (primary) hypertension Plan Yecenia has chronic kidney disease and longstanding hypertension. Her blood pressure is suboptimal today- she notes she has not started taking her amlodipine as prescribe- the prescription arrives tomorrow via home delivery and she will then start taking daily. 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 She is known to have coronary artery disease and has undergone angioplasty and stenting. She had an upper endoscopy, colonoscopy and sigmoidoscopy. Per GI, capsule study results pending. She has seen GI and has a F/U. She has worsening LE edema today. Will increase lasix to 60mg daily (patient will take three 20mg pills of what she has, declines new prescription). I administered Procrit 40 K Units in the office today. She may also need Hematology consult +/- bone marrow biopsy. She needs to maintain low-sodium & K diet. Follow up blood work ordered. She will follow up in the office to see Dr Boyer in 2 weeks. Answered all questions. Orders: Orders Protein Creatinine Ratio, Ur 2 Weeks R80.9 - Proteinuria, unspecified AMB Epoetin Injection Practice Supplied Today D63.1 - Anemia in chronic kidney disease, N18.31 - Chronic kidney disease, stage 3a, N18.32 - Chronic kidney disease, stage 3b Basic Metabolic Panel 2 Weeks N18.30 - Chronic kidney disease, stage 3 unspecified Complete Blood Count Auto Diff 2 Weeks D64.9 - Anemia, unspecified Coding Level of Care Code Est Pt Level 4 (74824) Diagnoses Anemia in stage 3b chronic kidney disease N18.32; D63.1 Chronic kidney disease stage: stage 3 (moderate) Chronic kidney disease stage 3 subtype: stage 3b (GFR 30-44) Secondary hyperparathyroidism (of renal origin) N25.81 Stage 3a chronic kidney disease N18.31 Chronic kidney disease stage 3 subtype: stage 3a (GFR 45-59) Other proteinuria R80.8 Proteinuria type: other Iron deficiency E61.1 Localized edema R60.0 Edema type: localized Primary hypertension I10 Hypertension type: primary hypertension
[2024-08-29 14:37] VITALS: BP 170/70; PULSE 63; O2SAT 96; O2SAT 98; BMI 24.0
== END 2024-08-29 15:17 | disposition home or self-care (01) ==
PROVIDERS: PCP Physician Assistant; Visit Provider Nurse Practitioner Family
DX: N18.32 Chronic kidney disease, stage 3b (principal); D63.1 Anemia in chronic kidney disease; N25.81 Secondary hyperparathyroidism of renal origin; N18.31 Chronic kidney disease, stage 3a; R80.8 Other proteinuria; E61.1 Iron deficiency; R60.0 Localized edema; I10 Essential (primary) hypertension
CPT/HCPCS: 99214

== ENCOUNTER 2024-09-10 11:03 | Outpatient (REF) | payer MEDICARE, MEDICAID, SELFPAY ==
[2024-09-10 11:21] LABS: MANUAL DIFF FLAG NO
[2024-09-10 11:32] LABS: Hematocrit 28.9 % (37.0-47.0); Hemoglobin 8.3 g/dl (12.0-16.0); Imm Gran Abs Auto 0.04 X10*3/uL (0.00-0.03); Imm Gran Pct Auto 0.5 % (0.0-0.4); Lymphocytes Absolute Auto 1.1 X10*3/uL (1.2-4.9); Mean Corpuscular HGB Conc 28.7 g/dl (31.0-35.0); Mean Corpuscular Hemoglobin 25.7 pg (27.0-33.0); Mean Corpuscular Volume 89.5 fL (80.0-98.0); NRBC Abs Auto 0.000 X10*3/uL (0.0-0.012); NRBC Pct Auto 0.0 /100WBC (0.0-0.2); Platelet Count 479 X10*3/uL (160-400); Red Blood Count 3.23 X10*6/uL (4.20-5.50); White Blood Count 7.4 X10*3/uL (4.8-10.8)
--- OUTSIDE RECORDS SUMMARY | 2024-09-10 12:06 | XMS_ITS | Clinical Summary ---
Author Organization [employer] Address [address] [place] [address] Care Team Providers Care Human Relations Professor Name Role Phone Unavailable Primary Care Provider [...]
--- OUTSIDE RECORDS SUMMARY | 2024-09-10 12:06 | XMS_ITS | Clinical Summary ---
Author Organization [facility] Address [address] [place] [address] Phone Care Team Providers Care Highway Maintainer Name Role Phone Marychuy Ríos MD Primary Care Provider [phone] Allergies Active Allergy Reactions Criticality Noted Date [...] Medicaid [place] Medicare Medicaid [place] Care Teams Highway Maintainer Relationship Specialty Start Date End Date Marychuy Ríos MD [address] [place] [id number] PCP - General Internal Medicine 11/03/20
--- OUTSIDE RECORDS SUMMARY | 2024-09-10 12:06 | XMS_ITS | Encounter Summary ---
Author Organization [facility] Address [facility] [employer] [facility] [address] [place] [address] Phone Care Team Providers Care Doughnut Icer Machine Name Role Phone Marychuy Ríos MD Primary Care Provider [phone] Baldomero Roy Primary Care Provider + Encounter Details Date Type Department Care Team (Late st Contact Info) Description 11/30/2020 Ancillary Orders [facility] Orthopedics & Sports Medicine [address] [place] [address] [place] [address] Alexander Matthew PA [address] [place] [address] [email or web address] Social History Tobacco Use Types Packs/Day Years Used Date Smoking Tobacco: Never Assessed Comments Unknown Sex and Gender Information Value Date Recorded Sex Assigned at Female 04/15/2019 3:59 PM EST Legal Sex Female 10:01 PM EDT Gender Identity Female 04/15/2019 3:59 PM EST Sexual Orientation Straight 04/15/2019 3: 59 PM EST documented as of this encounter Plan of Treatment Not on file documented as of this encounter Visit Diagnoses Not on filedocumented in this encounter Care Teams Doughnut Icer Machine Relationship Specialty Start Date End Date Marychuy Ríos MD [address] [place] [address] PCP - General Internal Medicine 11/30/20 06/06/24 Baldomero Roy PA [address] [place] [address] PCP - General Physician Biofuels Product Development Manager 06/07/24 documented as of this encounter Additional Source Comments The information contained in this document represents components of the legal health record. It is not the complete legal health record.[facility]
[2024-09-10 12:13] LABS: Anion Gap 14 (12-20); Blood Urea Nitrogen 61 mg/dL (9-16); Calcium 10.0 mg/dL (8.4-10.2); Carbon Dioxide 25 mmol/L (22-29); Chloride 108 mmol/L (96-108); Estimated Glomerular Filt Rate 15; Potassium 4.2 mmol/L (3.3-5.1); Sodium 143 mmol/L (135-145)
== END 2024-09-10 11:04 | disposition home or self-care (01) ==
LOC: HO.LAB 11:03
PROVIDERS: PCP Internal Medicine; Visit Provider Internal Medicine Nephrology
DX: I12.9 Hypertensive chronic kidney disease with stage 1 through stage 4 chronic kidney disease, or unspecified chronic kidney disease (principal); N18.32 Chronic kidney disease, stage 3b; D63.1 Anemia in chronic kidney disease; E61.1 Iron deficiency; N25.81 Secondary hyperparathyroidism of renal origin; R80.9 Proteinuria, unspecified
CPT/HCPCS: 36415; 80048; 84100; 85025

== ENCOUNTER 2024-09-12 10:18 | Outpatient (AMB) | payer MEDICARE, MEDICAID, SELFPAY ==
--- OUTSIDE RECORDS SUMMARY | 2024-09-12 10:34 | XMS_ITS | Clinical Summary ---
Author Organization [facility] Address [address] [place] [address] Phone Care Team Providers Care Apprentice Lineman Third Step Name Role Phone Marychuy Ríos MD Primary Care Provider [phone] Allergies Active Allergy Reactions Criticality Noted Date [...] Medicaid [place] Medicare [place] Care Teams Apprentice Lineman Third Step Relationship Specialty Start Date End Date Marychuy Ríos MD [address] [place] [phone] PCP - General Internal Medicine 11/03/20
--- OUTSIDE RECORDS SUMMARY | 2024-09-12 10:34 | XMS_ITS | Clinical Summary ---
Author Organization [employer] Address [address] [facility] 7t [place] [address] Care Team Providers Care Enrolled Agent Name Role Phone Unavailable Primary Care [...]
--- OUTSIDE RECORDS SUMMARY | 2024-09-12 10:34 | XMS_ITS | Encounter Summary ---
Author Organization [facility] Address [facility] [address] [place] [address] Phone Care Team Providers Care Tire Assembler Name Role Phone Marychuy Ríos MD Primary Care Provider [phone] Baldomero Roy Primary Care Provider + Encounter Details Date Type Department Care Team (Late st Contact Info) Description 11/30/2020 Ancillary Orders [facility] Orthopedics & Sports Medicine [address] [place] [address] [place] [address] Alexander Matthew PA [address] [place] [address] [email or web address] Social History Tobacco Use Types Packs/Day Years [...] on filedocumented in this encounter Care Teams Tire Assembler Relationship Specialty Start Date End Date Marychuy Ríos MD [address] [place] [address] PCP - General Internal Medicine 11/30/20 06/06/24 Baldomero Roy PA [address] [place] [address] PCP - General Physician Recruiting Specialist 06/07/24 documented as of this encounter Additional Source Comments The information contained in this document represents components of the legal health record. It is not the complete legal health record.[facility]
--- NOTE | 2024-09-12 10:46 | HO.NEPHOV_ITS ---
Vital Signs 09/12/24 10:47 Height 5 ft 8 in Weight 152 lb 8 oz BMI 23.2 BP 140/70 H Blood Pressure Location Rt brachial Position Sitting Pulse 60 Pulse Source Pulse Oximeter Pulse Oximetry (%) 97 Oxygen Delivery Method Room Air Intake Visit Reasons: 2wk follow-up w/labs-LVM Marketing Specialist Required: No Accompanied by: Self / Same As Patient Allergies codeine Allergy (Intermediate, Verified 09/12/24 10:50) Nausea latex Allergy (Intermediate, Verified 09/12/24 10:50) Rash hydrochlorothiazide Allergy (Unknown, Verified 09/12/24 10:50) Unknown morphine Allergy (Unknown, Verified 09/12/24 10:50) Nausea SHAYY Inhibitors Adverse Reaction (Unknown, Verified 09/12/24 10:50) Unknown HPI Comments Details: Yecenia is a 74-year-old female with a PMH significant for?CAD s/p stenting 2018, hx of DVT with pulmonary embolism 2017 on Eliquis, HTN, HLD, CKD 3, chronic anemia requiring transfusions in the past, diet-controlled diabetes type 2, osteoarthritis, and chronic lower leg edema was seen for F/U today. She has been needing PRBC transfusions- she has had a colonoscopy at [facility] and an upper endoscopy and sigmoidoscopy at [facility] on 08/19/24 while in the hospital- no source of bleeding found, capsule study findings pending per most recent GI notes. Patient also expressed her frustration about ongoing right knee and leg pain and swelling afternoon undergoing intra-articular steroids. She was seen by orthopedic service and pain management as an outpatient. Unfortunately, Yecenia's mother , she states she is doing ok, grieving. Her lower extremity swelling has improved but her serum creatinine worsened. She denies shortness of breath, chest pain, orthopnea or urinary symptoms. [facility] Medical History Graves disease CAD (coronary artery disease) Osteoarthritis Hx of transfusion of packed red blood cells Diet-controlled diabetes mellitus Pulmonary embolism DVT (deep venous thrombosis) Anemia in chronic kidney disease Hypertension CKD (chronic kidney disease) stage 3, GFR 30-59 ml/min Surgical History Hx of heart artery stent History of partial hysterectomy Family History Maternal Grandfather Stomach cancer Social History Household Members: None Housing: Apartment Do you presently have visiting nurse or other home services: No Alcohol intake: never Patient Tobacco Use Status: Former Tobacco user Tobacco use type: Cigarette e-Cigarette/Vaping Use: Never Used service: No Current occupational status: retired Cognitive needs: No Hearing needs: Yes Vision needs: No Review of Systems Const All systems reviewed & are unremarkable except as noted in HPI and below Physical Exam Vital Signs: Last Vital Signs Pulse 60 09/12/24 10:47 BP 140/70 H 09/12/24 10:47 Pulse Ox 97 09/12/24 10:47 Oxygen Delivery Method Room Air 09/12/24 10:47 BMI result Body Mass Index 23.2 Const General: comfortable and no acute distress Orientation/consciousness: patient oriented x3 HEENT Head: Yes normocephalic Mouth: Normal oral and palatal mucosa present Eyes EOM: EOMs intact bilaterally Neck Neck: Yes supple Resp Auscultation: clear to auscultation bilaterally Cardio Jugular venous distension: no JVD Rate: regular rate GI Palpation (GI): Soft to palpation Auscultation: normal bowel sounds General: Yes no CVA tenderness Back/Spine/Pelvis Back: no CVA tenderness Skin General skin exam: no rashes or lesions noted Neuro General: patient oriented x3 and moves all extremities Office Meds epoetin walt-epbx 10,000 unit/mL injection solution Performing Provider: London Boyer MD Performing Location: [facility] Administered by: London Boyer MD on 09/12/24 11:17 Dose Route Admin Location Dispensed Lot Number Expiration Date [facility] [employer] Administrator 40,000 unit subcut LUE 4 mL [id number] 03/22/26 6586-8926-23 PFIZ ER US PHARM Total Dispensed Waste 4 mL 0 % Results Reviewed Nephrology Results: Hgb, (12.0-16.0) 8.3 g/dl L 09/10/24 WBC, (4.8-10.8) 7.4 X10*3/uL 09/10/24 Plt Count, (160-400) 479 X10*3/uL H Δ 09/10/24 Sodium, (135-145) 143 mmol/L 09/10/24 Potassium, (3.3-5.1) 4.2 mmol/L 09/10/24 Chloride, (96-108) 108 mmol/L 09/10/24 Carbon Dioxide, (22-29) 25 mmol/L 09/10/24 BUN, (9-16) 61 mg/dL H 09/10/24 Creatinine, (0.5-1.4) 3.00 mg/dL H 09/10/24 Calcium, (8.4-10.2) 10.0 mg/dL Δ 09/10/24 Phosphorus, (2.7-4.5) 4.5 mg/dL 09/10/24 Assessment & Plan Assessment & Plan (1) Hypertension: Code(s): I10 - Essential (primary) hypertension Category: Medical Qualifiers: Hypertension type: primary hypertension Qualified Code(s): I10 - Essential (primary) hypertension (2) Secondary hyperparathyroidism (of renal origin): Code(s): N25.81 - Secondary hyperparathyroidism of renal origin Category: Medical (3) CKD (chronic kidney disease) stage 3, GFR 30-59 ml/min: Code(s): N18.30 - Chronic kidney disease, stage 3 unspecified Category: Medical Qualifiers: Chronic kidney disease stage 3 subtype: stage 3a (GFR 45-59) Qualified Code(s): N18.31 - Chronic kidney disease, stage 3a (4) Proteinuria: Code(s): R80.9 - Proteinuria, unspecified Category: Medical Qualifiers: Proteinuria type: other Qualified Code(s): R80.8 - Other proteinuria (5) Anemia in chronic kidney disease: Code(s): N18.9 - Chronic kidney disease, unspecified; D63.1 - Anemia in chronic kidney disease Category: Medical Qualifiers: Chronic kidney disease stage: stage 3 (moderate) Chronic kidney disease stage 3 subtype: stage 3b (GFR 30-44) Qualified Code(s): N18.32 - Chronic kidn ey disease, stage 3b; D63.1 - Anemia in chronic kidney disease Plan Yecenia has chronic kidney disease and longstanding hypertension. Her blood pressure is better today. 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 She is known to have coronary artery disease and has undergone angioplasty and stenting. She had an upper endoscopy, colonoscopy and sigmoidoscopy. Per GI, capsule study results pending. She has seen GI and has a F/U. Her edema is better. I reduced her lasix to 40mg daily. I administered Procrit 40 K Units in the office today. She may also need Hematology consult +/- bone marrow biopsy. She needs to maintain low-sodium & K diet. Follow up blood work ordered. Answered all questions. Orders: Orders Electrolytes 3 Weeks D63.1 - Anemia in chronic kidney disease, I10 - Essential (primary) hypertension, N18.31 - Chronic kidney disease, stage 3a, N18.32 - Chronic kidney disease, stage 3b, N25.81 - Secondary hyperparathyroidism of renal origin, R80.8 - Other proteinuria Complete Blood Count Auto Diff 3 Weeks D63.1 - Anemia in chronic kidney disease, I10 - Essential (primary) hypertension, N18.31 - Chronic kidney disease, stage 3a, N18.32 - Chronic kidney disease, stage 3b, N25.81 - Secondary hyperparathyroidism of renal origin, R80.8 - Other proteinuria AMB Epoetin Injection Practice Supplied Today D63.1 - Anemia in chronic kidney disease, N18.32 - Chronic kidney disease, stage 3b Creatinine 3 Weeks D63.1 - Anemia in chronic kidney disease, I10 - Essential (primary) hypertension, N18.31 - Chronic kidney disease, stage 3a, N18.32 - Chronic kidney disease, stage 3b, N25.81 - Secondary hyperparathyroidism of renal origin, R80.8 - Other proteinuria Blood Urea Nitrogen 3 Weeks D63.1 - Anemia in chronic kidney disease, I10 - Essential (primary) hypertension, N18.31 - Chronic kidney disease, stage 3a, N18.32 - Chronic kidney disease, stage 3b, N25.81 - Secondary hyperparathyroidism of renal origin, R80.8 - Other proteinuria Medications: Changed From prednisone 10 DAY TREATMENT STARTING ON 08/05 5 mg PO DAILY 10 days 10 tabs 0RF M17.11 - Unilateral primary osteoarthritis, right knee To prednisone 5 mg PO DAILY 90 tabs 0RF 90 days M17.11 - Unilateral primary osteoarthritis, right knee Coding Level of Care Code Est Pt Level 4 (52533) Diagnoses Primary hypertension I10 Hypertension type: primary hypertension Secondary hyperparathyroidism (of renal origin) N25.81 Stage 3a chronic kidney disease N18.31 Chronic kidney disease stage 3 subtype: stage 3a (GFR 45-59) Other proteinuria R80.8 Proteinuria type: other Anemia in stage 3b chronic kidney disease N18.32; D63.1 Chronic kidney disease stage: stage 3 (moderate) Chronic kidney disease stage 3 subtype: stage 3b (GFR 30-44)
[2024-09-12 10:47] VITALS: BP 140/70; PULSE 60; O2SAT 97; BMI 23.2
== END 2024-09-12 11:24 | disposition home or self-care (01) ==
LOC: HO.HKA 10:19
PROVIDERS: PCP Physician Assistant; Visit Provider Internal Medicine Nephrology
DX: I10 Essential (primary) hypertension (principal); N25.81 Secondary hyperparathyroidism of renal origin; N18.31 Chronic kidney disease, stage 3a; R80.8 Other proteinuria; N18.32 Chronic kidney disease, stage 3b; D63.1 Anemia in chronic kidney disease
CPT/HCPCS: 99214

== ENCOUNTER → 2024-09-12 10:18 | Outpatient (BNVA) | payer MEDICARE, MEDICAID, SELFPAY | PROVIDERS: PCP Physician Assistant; Visit Provider Internal Medicine Nephrology | DX: I12.9 Hypertensive chronic kidney disease with stage 1 through stage 4 chronic kidney disease, or unspecified chronic kidney disease (principal); N18.32 Chronic kidney disease, stage 3b; D63.1 Anemia in chronic kidney disease; N25.81 Secondary hyperparathyroidism of renal origin; R80.9 Proteinuria, unspecified | CPT/HCPCS: 96372; 99212; Q5106 ==

== ENCOUNTER 2024-09-24 09:32 | Outpatient (REF) | payer MEDICARE, MEDICAID, SELFPAY ==
--- NOTE | ~2024-09-24 | US_ITS ---
EXAMINATION: US LOWER EXTREMITY VENOUS (REFLUX EXAM), BILATERAL CLINICAL INFORMATION: Chronic/old nonocclusive thrombus, left common femoral vein. Inflammatory changes, right lower extremity. COMPARISON: Correlated to DVT ultrasound dated May 13, 2024. TECHNIQUE: Color flow triplex imaging and compression Doppler was performed to evaluate both the deep and the superficial systems bilaterally. To evaluate the superficial system, the examination was performed in the upright position. Color-flow Doppler ultrasound and compression ultrasound were utilized. In addition, maneuvers were utilized to demonstrate reflux. FINDINGS: 1. DEEP VENOUS ULTRASOUND OF THE RIGHT LOWER EXTREMITY: Common Femoral Vein: Compressible, normal respiratory variation and augmented flow. Femoral Vein: Compressible, normal color flow and augmentation. Popliteal Vein: Compressible, normal augmentation. Deep Reflux: There is no evidence of reflux in the deep system in either the common femoral vein, superficial femoral or the popliteal vein. There is no evidence of a Horvath's cyst. 2. SUPERFICIAL ULTRASOUND WITH DOPPLER OF RIGHT LOWER EXTREMITY: GREAT SAPHENOUS VEIN: Saphenofemoral Junction: 0.7 cm; Reflux: 0 ms Proximal Thigh: 0.4 cm; Reflux: 0 ms Mid Thigh: 0.4 cm; Reflux: 0 ms Distal Thigh: 0.4 cm; Reflux: 0 ms At Knee: 0.5 cm; Reflux: 0 ms Proximal Calf: 0.4 cm; Reflux: 0 ms Mid Calf: 0.3 cm; Reflux: 0 ms Distal Calf: 0.3 cm; Reflux: 0 ms DUPLICATED MEDIAL GREAT SAPHENOUS VEIN: Diameter: None imaged Reflux: NA DUPLICATED LATERAL GREAT SAPHENOUS VEIN: Diameter: 0.3 cm. Reflux: NA SMALL SAPHENOUS VEIN: Saphenopopliteal Junction: 0.4 cm; Reflux: 0 ms Proximal: 0.2 cm; Reflux: 0 ms Distal: 0.3 cm; Reflux: 0 ms VEIN OF GIACOMINI: Size: 0.2 cm. Reflux: NA PERFORATORS: Location: Distal calf. Size: 0.3 cm. Reflux: NA VARICOSITIES: Location: None imaged. Size: NA Reflux: NA 3. DEEP VENOUS ULTRASOUND OF THE LEFT LOWER EXTREMITY: Common Femoral Vein: Incomplete compressibility and partial augmentation. Femoral Vein: Incomplete compressibility and augmentation. Popliteal Vein: Compressible, normal augmentation. Deep Reflux: 940 ms reflux in the mid femoral vein and 1000 ms reflux in the popliteal vein. There is a 2.6 cm lobulated anechoic abnormality without flow on color Doppler interrogation or gross internal echoes in the medial aspect of the left knee. 4. SUPERFICIAL ULTRASOUND WITH DOPPLER OF LEFT LOWER EXTREMITY: GREAT SAPHENOUS VEIN: Saphenofemoral Junction: 1.0 cm; Reflux: 0 ms Proximal Thigh: 0.5 cm; Reflux: 0 ms Mid Thigh: 0.4 cm; Reflux: 0 ms Distal Thigh: 0.4 cm; Reflux: 0 ms At Knee: 0.4 cm; Reflux: 0 ms Proximal Calf: 0.3 cm; Reflux: 0 ms Mid Calf: 0.2 cm; Reflux: 0 ms Distal Calf: 0.2 cm; Reflux: 0 ms DUPLICATED MEDIAL GREAT SAPHENOUS VEIN: Diameter: None imaged Reflux: NA DUPLICATED LATERAL GREAT SAPHENOUS VEIN: Diameter: None imaged. Reflux: NA SMALL SAPHENOUS VEIN: Saphenopopliteal Junction: 0.3 cm; Reflux: 0 ms Proximal: 0.2 cm; Reflux: 0 ms Distal: 0.3 cm; Reflux: 0 ms VEIN OF GIACOMINI: Size: 0.2 cm. Reflux: NA PERFORATORS: Location: Small saphenous vein, proximal calf. Size: 0.3 cm. Reflux: NA VARICOSITIES: Location: Small saphenous vein mid segment and midcalf and at the knee. Size: 0.3 cm. Reflux: NA US/US venous insuf bilat IMPRESSION: Right: No venous insufficiency. Perforators without reflux, distal calf. Left: Deep venous system reflux/insufficiency, mid femoral vein and popliteal veins. Varices and perforators without reflux. Old/chronic nonocclusive thrombus, left common femoral vein and proximal left femoral vein. Patient on anticoagulation therapy. 2.6 cm cyst, medial left knee. Electronically signed by: Neftali Infante MD 09/25/2024 09:14 AM EDT
--- OUTSIDE RECORDS SUMMARY | 2024-09-24 09:56 | XMS_ITS | Clinical Summary ---
Author Organization [facility] Address [address] [place] [address] Phone Care Team Providers Care Layout Operator Name Role Phone Marychuy Ríos MD Primary Care Provider [phone] Allergies Active Allergy Reactions Criticality Noted Date [...] Medicaid [place] Medicare [place] Care Teams Layout Operator Relationship Specialty Start Date End Date Marycuhy Ríos MD PCP - General Internal Medicine 11/03/20
--- OUTSIDE RECORDS SUMMARY | 2024-09-24 09:56 | XMS_ITS | Encounter Summary ---
Author Organization [facility] Address [facility] [address] [place] [address] Phone Care Team Providers Care Instrument And Control Technician Name Role Phone Marychuy Ríos MD Primary Care Provider [phone] Baldomero Roy Primary Care Provider + Encounter Details Date Type Department Care Team (Late st Contact Info) Description 11/30/2020 Ancillary Orders [facility] Orthopedics & Sports Medicine [address] [place] [address] [place] [address] Alexander Matthew PA [address] [place] [address] [email or web address] Social History Tobacco Use Types Packs/Day [...] on filedocumented in this encounter Care Teams Instrument And Control Technician Relationship Specialty Start Date End Date Marychuy Ríos MD [address] [place] [address] PCP - General Internal Medicine 11/30/20 06/06/24 Baldomero Roy PA [address] [place] [address] PCP - General Physician Curtain Stretcher 06/07/24 documented as of this encounter Additional Source Comments The information contained in this document represents components of the legal health record. It is not the complete legal health record.[facility]
--- OUTSIDE RECORDS SUMMARY | 2024-09-24 09:56 | XMS_ITS | Clinical Summary ---
Author Organization [employer] Address [address] [facility] 7t [place] [address] Care Team Providers Care Network Support Manager Name Role Phone Unavailable Primary Care Provider [...]
== END 2024-09-24 09:33 | disposition home or self-care (01) ==
LOC: HO.US 09:32
PROVIDERS: PCP Physician Assistant; Visit Provider Surgery Vascular Surgery
DX: I83.11 Varicose veins of right lower extremity with inflammation (principal)
CPT/HCPCS: 93970

== ENCOUNTER → 2024-09-24 09:34 | Outpatient (BNV) | payer MEDICARE, MEDICAID, SELFPAY | PROVIDERS: PCP Physician Assistant; Visit Provider Radiology Diagnostic Radiology | DX: I83.813 Varicose veins of bilateral lower extremities with pain (principal) | CPT/HCPCS: 93970 ==

== ENCOUNTER 2024-09-24 11:30 | Outpatient (RCR) | payer MEDICARE, MEDICAID, SELFPAY ==
[2024-03-03] VITALS (10 sets, daily range): BP systolic 153–188; BP diastolic 44–68; PULSE 55–63; RESP 16–20; TEMP 36.8–37.2; O2SAT 96–100
[2024-07-02 11:52] VITALS: BP 182/65; PULSE 67; RESP 16; TEMP 36.6; O2SAT 96
[2024-07-09 12:10] VITALS: BP 178/52; PULSE 65; RESP 16; TEMP 36.2; O2SAT 96
[2024-07-09 12:58] VITALS: BP 158/48; PULSE 66
[2024-07-15 12:40] VITALS: BP 196/145; PULSE 65; RESP 16; TEMP 36.6; O2SAT 96
--- NOTE | 2024-07-15 12:55 | HO.INF ---
x2 blood pressures elevated. tiger sent to ordering provider and ok given to continue with infusion.
[2024-07-23 11:51] VITALS: BP 213/83; PULSE 73; RESP 16; TEMP 36.7; O2SAT 96
[2024-07-31 10:35] VITALS: BP 112/73; PULSE 68; RESP 16; TEMP 36.9; O2SAT 98
[2024-08-05] VITALS (10 sets, daily range): BP systolic 160–197; BP diastolic 55–79; PULSE 66–88; RESP 16–18; TEMP 36.4–36.8; O2SAT 97–98
--- NOTE | 2024-08-05 13:24 | HO.INF ---
pt states she has a pain management appt at 1515. bre chris contacted about transfusion rate; per provider, it is okay to transfuse at a rate of 175ml/hr, monitoring for signs of fluid overload/taco d/t kidney disease, so that pt can make it to her appointment at pain [facility]. pt has received multiple blood transfusions here in the past and has tolerated them very well without problems. pain management office contacted to be made aware of current blood transfusion.
--- NOTE | 2024-08-05 14:21 | HO.INF ---
pt sitting up eating lunch. speaking on phone in clear/full sentences. skin wpd. rr even/unlabored. aox4. no apparent distress. denies complaints. no s/s fluid overload/taco noted. blood transfusion continues.
[2024-08-06 11:29] VITALS: BP 185/61; PULSE 64; RESP 16; TEMP 36.7; O2SAT 98
[2024-08-06 12:08] VITALS: BP 170/70
[2024-09-03 11:33] VITALS: BP 142/52; PULSE 64; RESP 16; TEMP 36.1; O2SAT 98
[2024-09-10 11:54] VITALS: BP 150/60; PULSE 81; RESP 16; TEMP 36.8; O2SAT 97
[2024-09-17 11:03] VITALS: BP 154/56; PULSE 80; RESP 18; TEMP 36.6; O2SAT 98
[2024-09-17] MEDS: 0.9 % Sodium Chloride Flush 10 ML SYRINGE 5 ML IVFLUSH (11:47)
[2024-09-24 10:58] VITALS: BP 150/76; PULSE 57; RESP 16; TEMP 36.7; O2SAT 99
== END 2024-09-24 12:23 | disposition home or self-care (01) ==
LOC: HO.INF 11:30
PROVIDERS: Visit Provider Internal Medicine Nephrology
DX: K92.2 Gastrointestinal hemorrhage, unspecified (principal); D64.9 Anemia, unspecified
CPT/HCPCS: 36430; 86850; 86870; 86900; 86901; 86902; 86905; 86920; 86922; 96365; J1756; P9016

== ENCOUNTER 2024-10-10 08:15 | Outpatient (REF) | payer MEDICARE, MEDICAID, SELFPAY ==
--- OUTSIDE RECORDS SUMMARY | 2024-10-10 08:28 | XMS_ITS | Clinical Summary ---
Author Organization [employer] Address [address] [facility] 7t [place] [address] Care Team Providers Care Data Deliverables Manager Name Role Phone Unavailable Primary Care [...]
--- OUTSIDE RECORDS SUMMARY | 2024-10-10 08:29 | XMS_ITS | Encounter Summary ---
Author Organization [facility] Address [address] [employer] [facility] [address] [place] [address] Phone Care Team Providers Care Motion Picture Scene Builder Name Role Phone Marychuy Ríos MD Primary Care Provider [phone] Baldomero Roy Primary Care Provider + Encounter Details Date Type Department Care Team (Late st Contact Info) Description 11/30/2020 Ancillary Orders [facility] Orthopedics & Sports Medicine [address] [place] [address] [place] [address] Alexander Matthew PA [address] [place] [address] [email or web address] Social History Tobacco Use Types Packs/Day Years [...] on filedocumented in this encounter Care Teams Motion Picture Scene Builder Relationship Specialty Start Date End Date Marychuy Ríos MD [address] [place] [address] PCP - General Internal Medicine 11/30/20 06/06/24 Baldomero Roy PA [facility] [place] [address] PCP - General Physician Bench Worker Hollow Handle 06/07/24 documented as of this encounter Additional Source Comments The information contained in this document represents components of the legal health record. It is not the complete legal health record.[facility]
--- OUTSIDE RECORDS SUMMARY | 2024-10-10 08:29 | XMS_ITS | Clinical Summary ---
Author Organization [facility] Address [address] [place] [address] Phone Care Team Providers Care Yeast Pusher Name Role Phone Marychuy Ríos MD Primary Care Provider [phone] Allergies Active Allergy Reactions Criticality Noted Date [...] Medicaid [place] Medicare [place] Care Teams Yeast Pusher Relationship Specialty Start Date End Date Marychuy Ríos MD [address] [place] [id number] PCP - General Internal Medicine 11/03/20
[2024-10-10 08:37] LABS: MANUAL DIFF FLAG NO
[2024-10-10 09:54] LABS: Hematocrit 27.7 % (37.0-47.0); Hemoglobin 7.8 g/dl (12.0-16.0); Imm Gran Abs Auto 0.05 X10*3/uL (0.00-0.03); Imm Gran Pct Auto 0.6 % (0.0-0.4); Lymphocytes Absolute Auto 1.2 X10*3/uL (1.2-4.9); Mean Corpuscular HGB Conc 28.2 g/dl (31.0-35.0); Mean Corpuscular Hemoglobin 27.3 pg (27.0-33.0); Mean Corpuscular Volume 96.9 fL (80.0-98.0); NRBC Abs Auto 0.020 X10*3/uL (0.0-0.012); NRBC Pct Auto 0.2 /100WBC (0.0-0.2); Platelet Count 327 X10*3/uL (160-400); Red Blood Count 2.86 X10*6/uL (4.20-5.50); White Blood Count 8.2 X10*3/uL (4.8-10.8)
[2024-10-10 10:14] LABS: Anion Gap 18 (12-20); Blood Urea Nitrogen 72 mg/dL (9-16); Calcium 9.4 mg/dL (8.4-10.2); Carbon Dioxide 23 mmol/L (22-29); Chloride 107 mmol/L (96-108); Estimated Glomerular Filt Rate 19; Potassium 4.8 mmol/L (3.3-5.1); Sodium 143 mmol/L (135-145)
== END 2024-10-10 08:16 | disposition home or self-care (01) ==
LOC: HO.LAB 08:15
PROVIDERS: PCP Internal Medicine; Visit Provider Internal Medicine Nephrology
DX: I12.9 Hypertensive chronic kidney disease with stage 1 through stage 4 chronic kidney disease, or unspecified chronic kidney disease (principal); N18.31 Chronic kidney disease, stage 3a; N25.81 Secondary hyperparathyroidism of renal origin; N18.32 Chronic kidney disease, stage 3b; D63.1 Anemia in chronic kidney disease; E61.1 Iron deficiency; R80.8 Other proteinuria
CPT/HCPCS: 36415; 80051; 82310; 82565; 84520; 85025; 96372; 99212; Q5106

== ENCOUNTER 2024-10-10 11:30 | Outpatient (AMB) | payer MEDICARE, MEDICAID, SELFPAY ==
--- NOTE | 2024-10-10 12:00 | HO.NEPHOV_ITS ---
Vital Signs 10/10/24 12:06 Height 5 ft 8 in Weight 163 lb 4 oz BMI 24.8 BP 180/82 H Blood Pressure Location Lt brachial Position Sitting Pulse 80 Pulse Source Pulse Oximeter Pulse Oximetry (%) 97 Oxygen Delivery Method Room Air Intake Visit Reasons: 4wks Retacrit f/u w/labs-Conf Heating Technician Required: No Accompanied by: Self / Same As Patient Allergies codeine Allergy (Intermediate, Verified 10/10/24 12:06) Nausea latex Allergy (Intermediate, Verified 10/10/24 12:06) Rash hydrochlorothiazide Allergy (Unknown, Verified 10/10/24 12:06) Unknown morphine Allergy (Unknown, Verified 10/10/24 12:06) Nausea SHAYY Inhibitors Adverse Reaction (Unknown, Verified 10/10/24 12:06) Unknown HPI Comments Details: Yecenia is a 74-year-old female with a PMH significant for?CAD s/p stenting 2018, hx of DVT with pulmonary embolism 2017 on Eliquis, HTN, HLD, CKD 3, chronic anemia requiring transfusions in the past, diet-controlled diabetes type 2, osteoarthritis, and chronic lower leg edema was seen for F/U today. She has been needing PRBC transfusions- she has had a colonoscopy at [facility] and an upper endoscopy and sigmoidoscopy at [facility] on 08/19/24 while in the hospital- no source of bleeding found, capsule study findings pending per most recent GI notes. Patient also expressed her frustration about ongoing right knee and leg pain and swelling afternoon undergoing intra-articular steroids. She was seen by orthopedic service and pain management as an outpatient. Unfortunately, Yecenia's mother , she states she is doing ok, grieving. She denies shortness of breath, chest pain, orthopnea or urinary symptoms. Her creatinine is 2.54 now [facility] Medical History Graves disease CAD (coronary artery disease) Osteoarthritis Hx of transfusion of packed red blood cells Diet-controlled diabetes mellitus Pulmonary embolism DVT (deep venous thrombosis) Anemia in chronic kidney disease Hypertension CKD (chronic kidney disease) stage 3, GFR 30-59 ml/min Surgical History Hx of heart artery stent History of partial hysterectomy Family History Maternal Grandfather Stomach cancer Social History Household Members: None Housing: Apartment Do you presently have visiting nurse or other home services: No Alcohol intake: never Patient Tobacco Use Status: Former Tobacco user Tobacco use type: Cigarette e-Cigarette/Vaping Use: Never Used service: No Current occupational status: retired Cognitive needs: No Hearing needs: Yes Vision needs: No Review of Systems Const All systems reviewed & are unremarkable except as noted in HPI and below Physical Exam Vital Signs: Last Vital Signs Pulse 80 10/10/24 12:06 BP 180/82 H 10/10/24 12:06 Pulse Ox 97 10/10/24 12:06 Oxygen Delivery Method Room Air 10/10/24 12:06 BMI result Body Mass Index 24.8 Const General: comfortable and no acute distress Orientation/consciousness: patient oriented x3 HEENT Head: Yes normocephalic Mouth: Normal oral and palatal mucosa present Eyes EOM: EOMs intact bilaterally Neck Neck: Yes supple Resp Auscultation: clear to auscultation bilaterally Cardio Jugular venous distension: no JVD Rate: regular rate GI Palpation (GI): Soft to palpation Auscultation: normal bowel sounds General: Yes no CVA tenderness Back/Spine/Pelvis Back: no CVA tenderness Skin General skin exam: no rashes or lesions noted Neuro General: patient oriented x3 and moves all extremities Extrem General: Yes edema Office Meds epoetin walt-epbx 10,000 unit/mL injection solution Performing Provider: London Boyer MD Performing Location: [facility] Administered by: London Boyer MD on 10/10/24 12:18 Dose Route Admin Location Dispensed Lot Number Expiration Date [facility] Sash [employer] 40,000 unit subcut LUE 4 mL [id number] 03/22/26 [id number] [facility] Total Dispensed Waste 4 mL 0 % Results Reviewed Nephrology Results: Hgb, (12.0-16.0) 7.8 g/dl L Today WBC, (4.8-10.8) 8.2 X10*3/uL Today Plt Count, (160-400) 327 X10*3/uL Δ Today Sodium, (135-145) 143 mmol/L Today Potassium, (3.3-5.1) 4.8 mmol/L Today Chloride, (96-108) 107 mmol/L Today Carbon Dioxide, (22-29) 23 mmol/L Today BUN, (9-16) 72 mg/dL H Today Creatinine, (0.5-1.4) 2.54 mg/dL H Today Calcium, (8.4-10.2) 9.4 mg/dL Today Phosphorus, (2.7-4.5) 4.5 mg/dL 09/10/24 Assessment & Plan Assessment & Plan (1) Hypertension: Code(s): I10 - Essential (primary) hypertension Category: Medical Qualifiers: Hypertension type: primary hypertension Qualified Code(s): I10 - Essential (primary) hypertension (2) Secondary hyperparathyroidism (of renal origin): Code(s): N25.81 - Secondary hyperparathyroidism of renal origin Category: Medical (3) CKD (chronic kidney disease) stage 3, GFR 30-59 ml/min: Code(s): N18.30 - Chronic kidney disease, stage 3 unspecified Category: Medical Qualifiers: Chronic kidney disease stage 3 subtype: stage 3a (GFR 45-59) Qualified Code(s): N18.31 - Chronic kidney disease, stage 3a (4) Proteinuria: Code(s): R80.9 - Proteinuria, unspecified Category: Medical Qualifiers: Proteinuria type: other Qualified Code(s): R80.8 - Other proteinuria (5) Anemia in chronic kidney disease: Code(s): N18.9 - Chronic kidney disease, unspecified; D63.1 - Anemia in chronic kidney disease Category: Medical Qualifiers: Chronic kidney disease stage: stage 3 (moderate) Chronic kidney disease stage 3 subtype: stage 3b (GFR 30-44) Qualified Code(s): N18.32 - Chronic kidney disease, stage 3b; D63.1 - Anemia in chronic kidney disease Plan Yecenia has chronic kidney disease and longstanding hypertension. 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 She is known to have coronary artery disease and has undergone angioplasty and stenting. She had an upper endoscopy, colonoscopy and sigmoidoscopy. She has seen GI and has a F/U. Her edema is better. She can continue lasix 40mg daily. I administered Procrit 40 K Units in the office today. I requested a Hematology consult. She likely will need a bone marrow biopsy ( needs to R/O sickle cell trait/ hypoplastic marrow/ anti EPO antibody ). She needs to maintain low-sodium & K diet. Follow up blood work ordered. Answered all questions. Orders: Orders AMB Epoetin Injection Practice Supplied Today D63.1 - Anemia in chronic kidney disease, N18.32 - Chronic kidney disease, stage 3b Blood Urea Nitrogen 1 Month D63.1 - Anemia in chronic kidney disease, I10 - Essential (primary) hypertension, N18.31 - Chronic kidney disease, stage 3a, N18.32 - Chronic kidney disease, stage 3b, N25.81 - Secondary hyperparathyroidism of renal origin, R80.8 - Other proteinuria Creatinine 1 Month D63.1 - Anemia in chronic kidney disease, I10 - Essential (primary) hypertension, N18.31 - Chronic kidney disease, stage 3a, N18.32 - Chronic kidney disease, stage 3b, N25.81 - Secondary hyperparathyroidism of renal origin, R80.8 - Other proteinuria Calcium 1 Month D63.1 - Anemia in chronic kidney disease, I10 - Essential (primary) hypertension, N18.31 - Chronic kidney disease, stage 3a, N18.32 - Chronic kidney disease, stage 3b, N25.81 - Secondary hyperparathyroidism of renal origin, R80.8 - Other proteinuria Complete Blood Count Auto Diff 1 Month D63.1 - Anemia in chronic kidney disease, I10 - Essential (primary) hypertension, N18.31 - Chronic kidney disease, stage 3a, N18.32 - Chronic kidney disease, stage 3b, N25.81 - Secondary hyperparathyroidism of renal origin, R80.8 - Other proteinuria Electrolytes 1 Month D63.1 - Anemia in chronic kidney disease, I10 - Essential (primary) hypertension, N18.31 - Chronic kidney disease, stage 3a, N18.32 - Chronic kidney disease, stage 3b, N25.81 - Secondary hyperparathyroidism of renal origin, R80.8 - Other proteinuria Phosphorus 1 Month D63.1 - Anemia in chronic kidney disease, I10 - Essential (primary) hypertension, N18.31 - Chronic kidney disease, stage 3a, N18.32 - Chronic kidney disease, stage 3b, N25.81 - Secondary hyperparathyroidism of renal origin, R80.8 - Other proteinuria Parathyroid Hormone Intact 1 Month D63.1 - Anemia in chronic kidney disease, I10 - Essential (primary) hypertension, N18.31 - Chronic kidney disease, stage 3a, N18.32 - Chronic kidney disease, stage 3b, N25.81 - Secondary hyperparathyroidism of renal origin, R80.8 - Other proteinuria Referrals Hematology & Oncology Referral D63.1 - Anemia in chronic kidney disease, N18.32 - Chronic kidney disease, stage 3b Coding Level of Care Code Est Pt Level 4 (67483) Diagnoses Primary hypertension I10 Hypertension type: primary hypertension Secondary hyperparathyroidism (of renal origin) N25.81 Stage 3a chronic kidney disease N18.31 Chronic kidney disease stage 3 subtype: stage 3a (GFR 45-59) Other proteinuria R80.8 Proteinuria type: other Anemia in stage 3b chronic kidney disease N18.32; D63.1 Chronic kidney disease stage: stage 3 (moderate) Chronic kidney disease stage 3 subtype: stage 3b (GFR 30-44)
[2024-10-10 12:06] VITALS: BP 180/82; PULSE 80; O2SAT 97; BMI 24.8
== END 2024-10-10 12:29 | disposition home or self-care (01) ==
LOC: HO.HKA 11:31
PROVIDERS: PCP Physician Assistant; Visit Provider Internal Medicine Nephrology
DX: I10 Essential (primary) hypertension (principal); N25.81 Secondary hyperparathyroidism of renal origin; N18.31 Chronic kidney disease, stage 3a; R80.8 Other proteinuria; N18.32 Chronic kidney disease, stage 3b; D63.1 Anemia in chronic kidney disease
CPT/HCPCS: 99214

== ENCOUNTER → 2024-10-17 11:30 | Outpatient (BNV) | payer MEDICARE, MEDICAID, SELFPAY | PROVIDERS: PCP Internal Medicine; Referring Provider Internal Medicine; Visit Provider Internal Medicine | DX: D51.9 Vitamin B12 deficiency anemia, unspecified (principal) | CPT/HCPCS: 99214; G2211 ==

== ENCOUNTER 2024-10-21 10:16 | Outpatient (AMB) | payer MEDICARE, MEDICAID, SELFPAY ==
--- NOTE | 2024-10-21 10:28 | A.OFFVIS_ITS ---
Vital Signs 10/21/24 10:28 Height 5 ft 8 in Intake Visit Reasons: follow up 09/24/24 Intake Note: follow up 09/24/24, Pt states she has swelling bilateral feet. STarted about a year ago Associate Required: No Accompanied by: Self / Same As Patient Allergies lisinopril Allergy (Severe, Verified 10/21/24 10:30) Unknown codeine Allergy (Intermediate, Verified 10/21/24 10:30) Nausea latex Allergy (Intermediate, Verified 10/21/24 10:30) Rash hydrochlorothiazide Allergy (Unknown, Verified 10/21/24 10:30) Unknown morphine Allergy (Unknown, Verified 10/21/24 10:30) Nausea SHAYY Inhibitors Adverse Reaction (Unknown, Verified 10/21/24 10:30) Unknown HPI HPI follow up [facility] 09/24/24: Details: Very pleasant 74-year-old female presents for follow-up regarding venous insufficiency. She has significantly swollen lower extremities in particular calf and ankles. She does complain of right knee pain as well. She now presents for follow-up with venous insufficiency testing. COUNTS INCLUDE 234 BEDS AT THE [facility] Medical History Graves disease CAD (coronary artery disease) Osteoarthritis Hx of transfusion of packed red blood cells Diet-controlled diabetes mellitus Pulmonary embolism DVT (deep venous thrombosis) Anemia in chronic kidney disease Hypertension CKD (chronic kidney disease) stage 3, GFR 30-59 ml/min Surgical History Hx of heart artery stent History of partial hysterectomy Family History Maternal Grandfather Stomach cancer Social History Household Members: None Housing: Apartment Do you presently have visiting nurse or other home services: No Alcohol intake: never Patient Tobacco Use Status: Former Tobacco user Tobacco use type: Cigarette e-Cigarette/Vaping Use: Never Used service: No Current occupational status: retired Cognitive needs: No Hearing needs: Yes Vision needs: No Review of Systems Const Reports as per HPI ENT Reports no additional complaints Card Denies chest pain, Denies chest pain at rest and Denies chest pain with activity Resp Denies chest congestion and Denies cough GI Reports no additional complaints Musc Details: pain over varicosities, aching of lower extremities, swelling, cramping, heaviness and tiredness, itching Denies abnormal gait Skin/Breast Reports pruritus and Denies wounds Neuro Reports no additional complaints and Denies abnormal gait Psych Denies no additional complaints Physical Exam Const General: cooperative, healthy appearing and comfortable Orientation/consciousness: oriented to person, oriented to place and oriented to time Neck Carotids: no bruits Chest Chest palpation & inspection: normal inspection of the chest and normal palpation of entire chest wall Resp Effort & Inspection: normal respiratory effort and able to speak in complete sentences Cardio Rate: regular rate Heart sounds: S1 normal heart sound present and S2 normal heart sound present Peripheral pulses: Peripheral pulses 2+ throughout GI Inspection: Yes normal to inspection Skin Other: +2 edema CEAP Classification C4 - skin color changes Ep - Etiology Primary As - superficial veins P - reflux General skin exam: dry skin Neuro General: oriented to person, oriented to place and oriented to time Extrem Other: Right in cm: Thigh 50 Knee 45 Calf 38 Ankle 25 Left in cm: Thigh 49 Knee 43 Calf 41 Ankle 23 Right lower extremity: full ROM, normal capillary refill and edema Left lower extremity: full ROM, normal capillary refill and edema Psych Mental Status: mental status grossly normal Results Reviewed Results Reviewed: Brief summary of venous insufficiency testing is as follows: right great saphenous vein: negative right small saphenous vein: negative right accessory vein: none present left great saphenous vein: negative left small saphenous vein: negative left accessory vein: none present Please note there is no evidence of any venous aneurysms or significant tortuosity Assessment & Plan Assessment & Plan (1) Varicose veins of right lower extremity with inflammation: Code(s): I83.11 - Varicose veins of right lower extremity with inflammation Category: Medical Plan: In short patient is negative for any significant venous insufficiency. (2) Lymphedema: Code(s): I89.0 - Lymphedema, not elsewhere classified Category: Medical Plan: In short the patient has late on sent lymphedema. The patient has been on conservative treatment for at least 3 months with minimal relief. Patient has tried 30 mm of mercury compression garments, elevation, exercise healthy diet and doing manual says self MLD to the best of their ability for over 4 weeks but with no significant relief. She has been compliant with the program but has provided minimal relief. In addition on physical we are noticing hyperpigmentation It appears that she has stage 2 lymphedema. Patient has completed multiple forms of conservative therapy yet significant symptoms remain. Patient requires the use of a pneumatic compression device which we will assist in trying to have the patient obtain them. A pneumatic compression device will help reduce swelling and other lymphedema comorbidities. Thank you for allowing us to assist in her care. Coding Level of Care Code Est Pt Level 4 (50395) Diagnoses Varicose veins of right lower extremity with inflammation I83.11 Lymphedema I89.0
--- OUTSIDE RECORDS SUMMARY | 2024-10-21 11:50 | XMS_ITS | Encounter Summary ---
Author Organization [facility] Address [address] [place] [address] Care Team Providers Care Supervisor Furnace Process Name Role Phone Unavailable Primary Care Provider [...]
--- OUTSIDE RECORDS SUMMARY | 2024-10-21 11:50 | XMS_ITS | Encounter Summary ---
Author Organization [facility] Address Formerly [facility] [employer] [facility] [place] [address] [place] [phone] Phone Care Team Providers Care Fishing Instructor Name Role Phone Marychuy Ríos MD Primary Care Provider [phone] Baldomero Roy Primary Care Provider + Encounter Details Date Type Department Care Team (Late st Contact Info) Description 12/13/2022 Ancillary Orders [facility] Medical [facility] Orthopedics & Sports Medicine [address] [place] [id number] Raphael Graf MD [address] [place] [address] Orthopedics & Sports Medicine, [facility] [place] [address] [email or web address] Pain Social History Tobacco Use Types Packs/Day Years Used Date Smoking Tobacco: Never Smokeless Tobacco: Never Alcohol Use Standard Drinks/Week Comments Never 0 (1 standard drink = 0.6 oz pur e alcohol) Education Answer Date Recorded Are you interested in more education? Not on josep e 06/16/2022 Are you concerned about learning? Not on file 06/16/2022 No 06/16/2022 No 06/16/2022 Digital Access Answer Date Recorded No 07/15/2022 No 07/15/2022 Reliable internet access at home? Not on file 07/15/2022 Device with a working camera? Not on file Comments Unknown Sex and Gender Information Value Date Recorded Sex Assigned at Female 04/15/2019 3:59 PM EST Legal Sex Female 10:01 PM EDT Gender Identity Female 04/15/2019 3:59 PM EST Sexual Orientation Straight 04/15/2019 3: 59 PM EST documented as of this encounter Plan of Treatment Not on file documented as of this encounter Results * XR KNEE 4 OR MORE VIEWS (BILATERAL) (12/13/2022 10:01 AM EDT) Anatomical Region Laterality Modality Knee Bilateral, Knee Right, Knee Left Computed Radiography 12/13/2022 11:5 3 AM EDT Impressions 12/13/2022 11:56 AM EDT No fracture or dislocation. Lateral joint space narrowing bilaterally right much greater than left. Narrative 12/13/2022 11:56 AM EDT XR KNEE 4 OR MORE VIEWS (BILATERAL) COMPARISON: FINDINGS: Left Knee: No fracture. Normal alignment. There is mild narrowing of the lateral joint space. Arterial vascular calcification can be seen posterior to the distal femur and the popliteal space. No joint effusion is appreciated. Right Knee: No fracture. Normal alignment. There is severe narrowing of the lateral joint space with probable [id number] contact. Also on the right is arterial vascular calcification in the posterior soft tissues. Mild to moderate hypertrophic changes are identified at the tibial spines and patella. Procedure Note Morgan Emery MD - 12/13/2022 XR KNEE 4 OR MORE VIEWS (BILATERAL) COMPARISON: FINDINGS: Left Knee: No fracture. Normal alignment. There is mild narrowing of thelateral joint space. Arterial vascular calcification can be seen posterior to the distal femurand the popliteal space. No joint effusion is appreciated. Right Knee: No fracture. Normal alignment. There is severe narrowing ofthe lateral joint space with probable [id number] contact. Also on theright is arterial vascular calcification in the posterior soft tissues.Mild to moderate hypertrophic changes are identified at the tibial spinesand patella. IMPRESSION: No fracture or dislocation. Lateral joint space narrowing bilaterally right much greater than left. us Raphael Graf MD IMG XR LOWER EXTREMITY Final Result documented in this encounter Visit Diagnoses Diagnosis Pain Generalized pain Pain Generalized pain documented in this encounter Care Teams Fishing Instructor Relationship Specialty Start Date End Date Marychuy Ríos MD [address] [facility] [address] [place] [address] PCP - General Internal Medicine 11/30/20 06/06/24 Baldomero Roy PA [address] [place] [address] PCP - General Physician Salon Sales Consultant 06/07/24 documented as of this encounter Additional Source Comments The information contained in this document represents components of the legal health record. It is not the complete legal health record.[facility]
--- OUTSIDE RECORDS SUMMARY | 2024-10-21 11:50 | XMS_ITS | Clinical Summary ---
Author Organization [employer] Address [address] [place] [address] Care Team Providers Care Razor Sharpener Name Role Phone Unavailable Primary Care Provider [...]
--- OUTSIDE RECORDS SUMMARY | 2024-10-21 11:50 | XMS_ITS | Clinical Summary ---
Author Organization [facility] Address [address] [address] Phone Care Team Providers Care Pharmacy Tech Name Role Phone Baldomero Roy Primary Care Provider + Allergies Active Allergy Reactions Criticality Noted Date Comments Allerg Xt,D.Farinae-D.Pteronys 11/15/2022 Amoxicillin Unknown 04/07/2020 Codeine Unknown 04/08/2020 Furosemide 11/30/2020 Morphine Unknown 04/07/2020 Nsaids (Non-Steroidal Anti-Inflammatory Drug) Unknown,Other (See Comments) 07/27/2020 Oxycodone-Aspirin Unknown 04/07/2020 Medications vitamin B complex-folic acid (B COMPLEX 1, WITH FOLIC ACID,) 0.4 mg Tab Take 1 tablet by mouth. Active magnesium oxide 200 mg magnesium Chew Activ e ascorbic lsch-blucirnx-k in (VITAMIN C ENERGY BOOSTER) 1,000 mg PwEP Active apixaban (ELIQUIS) 2.5 mg as directed. Active cloNIDine HCL (CATAPRES) 0.1 MG tablet Take 0.1 mg by mouth every 8 (eight) hours. Active metoprolol tartrate (LOPRESSOR) 50 MG tablet Take 50 mg by mouth 2 (two) times a day. Active lidocaine (LIDODERM) 5 % Place 1 patch onto the skin daily. Remove & Discard patch within 12 hours or as directed by MD Montesinos patch 3 Active Additional Information Patient not taking.Reported on 06/07/2024 bumetanide (BUMEX) 0.5 MG tablet Take 1 tablet (0.5 mg total) by mouth daily. 30 tablet 5 Active gabapentin (NEURONTIN) 100 MG capsule Take 1 capsule (100 mg total) by mouth 2 (two) times a day. 60 capsule 5 Active isosorbide dinitrate (ISORDIL) 20 MG immediate release tablet Take 1 tablet (20 mg total) by mouth 2 (two) times a day. 60 tablet 5 Active Active Problems Problem Noted Date Diagnosed Date CHF exacerbation 06/07/2024 Assessment & Plan (06/11/2024 9:41 AM EDT): Acute hypoxic respiratory failure 2/2 flash pulmonary edema : hemoglobin was 5. 4/19 with shortness of breath. H&H of 5.2 and 18. No reported bleeding. Takes low-dose Eliquis and aspirin held on admission She decompensated in the emergency room with flash pulmonary edema and systolic blood pressure in the 220s, started on BiPAP and Cardene, now improving, transferred from ICU last night Resumed home antihypertensives, tropes were flat echo revealed low normal EF and grade 2 diastolic dysfunction transitioned off of IV Bumex and will continue oral, with close monitoring of renal function Symptomatic anemia 06/07/2024 Assessment & Plan (06/11/2024 9:41 AM EDT): Status post 2 packed red blood cell units hemoglobin 8.2 now 7.8 today relatively stable no active bleeding [facility] records indicate that she had EGD on 05/12 with normal esophagus and stomach. 2 cm polypoid lesion in the duodenum which was biopsied. No evidence of bleeding. The patient then had a colonoscopy with fair prep. Colonoscopy revealed medium internal hemorrhoids without stigmata of recent bleeding and showed normal colon and terminal ileum mucosa but without adequate prepped for detection of polyps. Plans were made for an outpatient video capsule endoscopy. The patient was evaluated by gastroenterology. Endoscopies were initially deferred due to her respiratory failure. The patient has no evidence of obvious GI bleeding. Iron studies were consistent with anemia of chronic disease. Her anemia is suspected to be multifactorial. Aspirin and Eliquis were held on admission. I discussed the case with GI and they will do colonoscopy tomorrow we will prep her tonight Follow H&H overnight Acute kidney injury superimposed on chronic kidn ey disease 06/07/2024 Assessment & Plan (06/11/2024 9:41 AM EDT): CKD, creatinine up a bit with diuresis. Had Brunson due to urinary retention and is now voiding normally without Brunson --D/c IV diuresis. Start po bumex. Follow renal function. Reduced bumex 06/10 for creatinine 2.8 cr now 2.7 --Renal Ultrasound unremarkable -renally dose all meds Hypertensive emergency 06/07/2024 Flash pulmonary edema 06/07/2024 Osteoarthritis of right knee 06/07/2024 Acute hypoxic respiratory failure 06/07/2024 Encounters Date Type Department Care Team Description 08/15/2024 Orders Only [facility] [address] [place] [address] Homehealth, Interface ProviderMD from Last 3 Months Social History Tobacco Use Types Packs/Day Years Used Date Smoking Tobacco: Never Smokeless Tobacco: Never Tobacco Cessation:Counseling Given: Not Answered Alcohol Use Standard Drinks/Week Comments Never 0 (1 standard drink = 0.6 oz pur e alcohol) Education Answer Date Recorded Are you interested in more education? Not on josep e 06/16/2022 Are you concerned about learning? Not on file 06/16/2022 No 06/16/2022 No 06/16/2022 Food Answer Date Recorded Within the past 6 months we worried whether our food would run out before we got money to buy more. Never True 06/07/2024 Within the past 6 months the food we bought just didn't last and we didn't have enough money to get more. Never True Residential Stability Answer Date Recor ded What is your housing situation today? I have finesse sing 06/07/2024 How many times have you move d in the past 12 months? Zero (I did not move) 06/07/2024 Paying for Meds Answer Date Recorded Do you have trouble paying for medicines? No 06/07/2024 Paying Utility Bills Answer Date Record ed Do you have trouble paying your heating or elect ricity bill? No 06/07/2024 Transportation Answer Date Recorded Has the lack of transportati on kept you from medical appointments or from getting medications? No 06/07/2024 Digital Access Answer Date Recorded No 06/07/2024 Yes 06/07/2024 Do you have reliable internet access at home? Ye s 06/07/2024 Do you have a device (e.g., phone, tablet, computer) with a working camera? Yes 06/07/2024 Intimate Partner Violence Answer Date R ecorded Are you denied basic needs s uch as food, clothing, or medical care? No 06/07/2024 In the past 12 months have y ou been in a relationship with a person who hurts, threatens, or tries to control you? No 06/07/2024 Are you denied basic needs s uch as food, clothing, or medical care? No 06/07/2024 In the past 12 months have y ou been in a relationship with a person who hurts, threatens, or tries to control you? No 06/07/2024 Comments Unknown Sex and Gender Information Value Date Recorded Sex Assigned at Female 04/15/2019 3:59 PM EST Legal Sex Female 10:01 PM EDT Gender Identity Female 04/15/2019 3:59 PM EST Sexual Orientation Straight 04/15/2019 3: 59 PM EST Last Filed Vital Signs Vital Sign Reading Time Taken Comments Blood Pressure 172/68 06/12/2024 3:19 PM EDT Pulse 71 06/12/2024 3:19 PM EDT Temperature 37.3 C (99.1 F) 06/12/2024 3:23 PM EDT Respiratory Rate 20 06/12/2024 1:00 PM EDT Oxygen Saturation 97% 06/12/2024 3:19 PM EDT Inhaled Oxygen Concentration 28% 06/08/2024 2 :00 PM EDT Weight 75.3 kg (165 lb 14.4 oz) 06/11/2024 5:56 AM EDT Height 172.7 cm (5' 8 ) 06/07/2024 11:3 0 PM EDT Body Mass Index 25.23 06/07/2024 11:30 PM EDT Plan of Treatment Health Maintenance Due Date Last Done Comments Adult Td,Tdap Booster 1950 HEMOGLOBIN A1C 1950 DEPRESSION SCREENING 1963 HEPATITIS C SCREENING 1969 LIPID PANEL 1969 PNEUMOCOCCAL VACCINES (50+ years) (1 of 2 - PCV) 1970 MAMMOGRAM 1991 COLOGUARD 01/02/1996 FIT TEST 01/02/1996 FOBT 01/02/1996 SIGMOIDOSCOPY 01/02/1996 VIRTUAL COLONOSCOPY 01/02/1996 ZOSTER VACCINES (1 of 2) 2001 RSV VACCINE (1 - Risk 60-74 years 1-dose series) 2011 OSTEOPOROSIS SCREENING INITIAL (ONE-TIME) 01/02/2016 BLOOD PRESSURE 05/16/2023 11/15/2022 DIABETIC EYE EXAM 06/12/2024 INFLUENZA VACCINE (#1) 2024 COVID-19 VACCINE (2024- season) 2024 03/22/2022, 02/24/2021, 06/02/2020, Additional history exists CREATININE LEVEL 06/12/2025 06/12/2024, , 06/10/2024, Additional history exists COLONOSCOPY 06/12/2034 06/12/2024 COLORECTAL CANCER SCREENING 06/12/2034 SMOKING STATUS SCREENING (Once After 26 Yrs) Completed 06/07/2024 HEPATITIS A VACCINES Aged Out No long er eligible based on patient's age to complete this topic HIB VACCINES Aged Out No longer eligi ble based on patient's age to complete this topic MENINGOCOCCAL VACCINES (ACWY) Aged Out No longer eligible based on patient's age to complete this topic MENINGOCOCCAL VACCINES (B) Aged Out N o longer eligible based on patient's age to complete this topic Medical Devices Not on file Procedures Procedure Name Priority Date/Time Associated Diagnosis Comments ENDOSCOPY, COLON 06/12/2024 7:48 AM EDT BASIC METABOLIC PANEL Routine 06/12/2024 5:14 AM EDT from Last 3 Months or Most Recently Relevant to Health Maintenance Results * ENDOSCOPY, COLON (06/12/2024 7:48 AM EDT) Narrative Transcriptions Sixto Yne MD - 06/12/2024 7:48 AM EDT [facility] Patient Name: Yecenia Easton Eder Attending MD:: SIXTO YEN MD, Procedure Date: 06/12/2024 7:48 AM Date of : 1950 Age: 74 Admit Type: Inpatient Gender: Female Room: [place] [address] Referring MD: Baldomero Roy Exam Type: Colonoscopy Indications: Last colonoscopy within the past few monthsincomplete bowel preparation, Iron deficiency anemia Medications: Monitored Anesthesia Care Procedure: Informed consent was obtained from the patientafter discussion of the indications, limitations, alternatives, benefits, and risks of the procedure. Risks specifically discussed include but are not limited to medication reactions, missed lesions, bleeding, perforation, or the need for emergent surgery. Throughout the procedure, the patient's blood pressure, pulse, end-tidal CO2, and oxygensaturations were monitored continuously. The Colonoscope was introduced through the anus and advanced to the cecum, identified by theappendiceal orifice, ileocecal valve and palpation. The colonoscopy was somewhat difficult due tosignificant looping. Successful completion of the procedure was aided by applying abdominal pressure. The patient tolerated the procedure fairly well. The quality of the bowel preparation was evaluated using the BBPS ([place] Bowel Preparation Scale) with scores of:Right Colon = 3, Transverse Colon = 3 and Left Colon = 3 (entire mucosa seen well with no residual staining, small fragments of stool or opaque liquid). Thetotal BBPS score equals 9. The ileocecal valve,appendiceal orifice, and rectum were photographed. Complications: No immediate complications. Estimated blood loss:None. Estimated Blood Loss: Estimated blood loss: none. Findings: The perianal and digital rectal examinations were normal. Pertinent negatives include normalsphincter tone. A few small-mouthed diverticula were found in the sigmoid colon and descending colon. The sigmoid colon revealed mildly excessivelooping. Retroflexion in the right colon was performed. There is no endoscopic evidence of bleeding, inflammation, mass or ulcerations in the entirecolon. Impression: - Diverticulosis in the sigmoid colon and in the descending colon. - There was significant looping of the colon. - No specimens collected. Recommendation: - [facility]. - Outpatient f/u with Bettie PARKS. SIXTO YEN MD 06/12/2024 8:13:01 AM This report has been signed electronically. Number of Addenda: 0 Note Initiated On: 06/12/2024 7:48 AM Procedure Code(s): --- Professional --- 66854, Colonoscopy, flexible; diagnostic, including collection of specimen(s) by brushing or washing, when performed (separateprocedure) --- Technical --- 56601, Colonoscopy, flexible; diagnostic, including collection of specimen(s) by brushing or washing, when performed (separateprocedure) Diagnosis Code(s): --- Professional --- D50.9, Iron deficiency anemia, unspecified K57.30, Diverticulosis of large intestine without perforation or abscess without bleeding --- Technical --- D50.9, Iron deficiency anemia, unspecified K57.30, Diverticulosis of large intestine without perforation or abscess without bleeding CPT copyright 2021 [employer]. All rights reserved. The codes documented in this report are preliminary and upon welding lead burner reviewmay be revised to meet current compliance requirements. Procedure Date: 06/12/2024 7:48:04 AM [address] [place] [address] Baldomero AGUIRRE GI PROCEDURE ORDERABLES Final Result * (ABNORMAL) Basic metabolic panel (06/12/2024 5:14 AM EDT) SODIUM 140 133 - 146 mmol/L [facility] CHLORIDE 98 96 - 108 mmol/L [facility] POTASSIUM 3.5 3.3 - 5.1 mmol/L [facility] CO2 31 21 - 35 mmol/L [facility] BUN 31(H) 6 - 19 mg/dL [facility] CREATININE 2.30(H) 0.5 - 1.5 mg/dL [facility] GLUCOSE 104(H) 70 - 99 mg/dL [facility] CALCIUM 8.8 8.4 - 10.3 mg/dL [facility] EGFR 22(L) >59 mL/min/1.7 3m2 [facility] Comment:Estimated glomerular filtration rate calculated using the CKD-EPI refit equation. ANION GAP 15 10 - 20 mmol/L [facility] Blood 06/12/2024 5:14 AM EDT 06/12/2024 5:39 AM EDT us Pranay Rizo MD LAB BLOOD ORDERABLES Final R esult [address] [address] from Last 3 Months or Most Recently Relevant to Health Maintenance Insurance MEDICARE PART A & B [facility] MEDICARE PART A & B [employer] MEDICARE PART A & B [place] [facility] [place] B [facility] MEDIC[facility] PART [facility] & [facility] [place] [id number] MEDICARE PART A & [facility] Advance Directives For more information, please contact: [phone] (9AM - 5PM [facility], Sunday-Sunday) Documents on File Type Date Recorded Patient Tonal Regulator Expl anation Healthcare Proxy 06/13/2024 3:02 PM Healthcare Proxy 06/12/2024 5:49 PM Health Care Proxy * Full Code (Latest Code Status on File) Date Activated Date Inactivated Comments 06/07/2024 9:14 PM Question Answer Comments Code Status Confirmed With: Patient Healthcare Agents on File Name Relationship Healthcare Agent [facility] p Communication Sree Lurdesking Friend .Primary Health Care Agent (Proxy form on file) Care Teams Pharmacy Tech Relationship Specialty Start Date End Date Baldomero Roy PA [address] [place] [address] PCP - General Physician Informatics Physician 06/07/24 Additional Source Comments The information contained in this document represents components of the legal health record. It is not the complete legal health record.[facility]
--- OUTSIDE RECORDS SUMMARY | 2024-10-21 11:50 | XMS_ITS | Encounter Summary ---
Author Organization [facility] Address [address] [place] [address] Phone Care Team Providers Care Horn Player Name Role Phone Baldomero Roy Primary Care Provider + Encounter Details Date Type Department Care Team (Late st Contact Info) Description 06/08/2024 Procedure Pass [facility] [address] [place] [address] Social History Tobacco Use Types Packs/Day Years [...] on filedocumented in this encounter Care Teams Horn Player Relationship Specialty Start Date End Date Baldomero Roy PA [address] [place] [address] PCP - General Physician Rabbet Operator 06/07/24 documented as of this encounter Additional Source Comments The information contained in this document represents components of the legal health record. It is not the complete legal health record.[facility]
--- OUTSIDE RECORDS SUMMARY | 2024-10-21 11:50 | XMS_ITS | Encounter Summary ---
Author Organization [facility] Address [address] [employer] [facility] [address] [place] [address] Phone Care Team Providers Care Textile Knitter Name Role Phone Marychuy Ríos MD Primary Care Provider [phone] Baldomero Roy Primary Care Provider + Encounter Details Date Type Department Care Team (Late st Contact Info) Description 11/30/2020 Ancillary Orders [facility]ics [facility] Medicine [address] [place] [address] [place] [address] Alexander Matthew PA [address] [place] [address] [email or web address] Social History Tobacco Use Types Packs/Day [...] on filedocumented in this encounter Care Teams Textile Knitter Relationship Specialty Start Date End Date Marychuy Ríos MD [address] [facility] [address] [place] [address] PCP - General Internal Medicine 11/30/20 06/06/24 Baldomero Roy PA [facility] [place] [address] PCP - General Physician Handbag Parts Cutter 06/07/24 documented as of this encounter Additional Source Comments The information contained in this document represents components of the legal health record. It is not the complete legal health record.[facility]
--- OUTSIDE RECORDS SUMMARY | 2024-10-21 11:50 | XMS_ITS | Encounter Summary ---
Author Organization [facility] Address [address] [place] [address] Phone Care Team Providers Care Shift Supervisor Rn Name Role Phone Marychuy Ríos MD Primary Care Provider [phone] Baldomero Roy Primary Care Provider + Reason for Referral * Outpatient Procedure - Closed Specialty Diagnoses / Procedures Referred By Tyree ambriz Referred To Contact Radiology Diagnoses Bruit of right carotid artery Bilateral carotid artery stenosis Carotid occlusion, bilateral Procedures US Carotid Duplex Complete (Bilateral) Marychuy Ríos MD Phone: tel: fax: Referral ID Status Reason Start Date Expiration Date Visits Re quested Visits Authorized [id number] Closed 11/14/2021 11/14/2022 1 1 Encounter Details Date Type Department Care Team (Late st Contact Info) Description 11/14/2021 Transcribe Orders Virtual Department [address] [place] [address] Marychuy Ríos MD [address] [address] Bruit of right carotid artery (Primary Dx); Bilateral carotid artery stenosis; Carotid occlusion, bilateral Social History Tobacco Use Types Packs/Day Years [...] documented as of this encounter Results * US Carotid Duplex Complete (Bilateral) (11/22/2021 3:40 PM EDT) Anatomical Region Laterality Modality Heart, Thoracic Vasculature, Neck Ultrasound 11/23/2021 9:18 AM EDT Impressions 11/23/2021 9:21 AM EDT 1. No hemodynamically significant internal carotid artery stenosis. 2. Bilateral antegrade vertebral artery flow. Narrative 11/23/2021 9:21 AM EDT COMPARISON: None. CAROTID ULTRASOUND FINDINGS: RIGHT: Peak external carotid artery: 101 cm/sec Peak vertebral: 64 cm/sec and antegrade Carotid artery morphology: Mild carotid bulb calcified plaque. Peak common carotid artery: 112/14 cm/sec Peak internal carotid artery: 128/30 cm/sec Mildly elevated peak systolic ratio-2.2. LEFT: Peak external carotid artery: 69 cm/sec Peak vertebral: 56 cm/sec and antegrade Carotid artery morphology: No significant plaque. Peak common carotid artery: 96/16 cm/sec Peak internal carotid artery: 127/26 cm/sec Normal peak systolic ratio. Any stenosis measurement is relative to the distal ICA diameters. Procedure Note Jose Bryan MD - 11/23/2021 COMPARISON: None. CAROTID ULTRASOUND FINDINGS: RIGHT: Peak external carotid artery: 101 cm/sec Peak vertebral: 64 cm/sec and antegrade Carotid artery morphology: Mild carotid bulb calcified plaque. Peak common carotid artery: 112/14 cm/sec Peak internal carotid artery: 128/30 cm/sec Mildly elevated peak systolic ratio-2.2. LEFT: Peak external carotid artery: 69 cm/sec Peak vertebral: 56 cm/sec and antegrade Carotid artery morphology: No significant plaque. Peak common carotid artery: 96/16 cm/sec Peak internal carotid artery: 127/26 cm/sec Normal peak systolic ratio. Any stenosis measurement is relative to the distal ICA diameters. IMPRESSION: 1. No hemodynamically significant internal carotid artery stenosis. 2. Bilateral antegrade vertebral artery flow. Marychuy Ríos MD CV US NEUROVASCULAR Final R esult documented in this encounter Visit Diagnoses Diagnosis Bruit of right carotid artery- Primary Bilateral carotid artery stenosis Occlusion and stenosis of carotid artery without mention of cerebral infarction Carotid occlusion, bilateral Occlusion and stenosis of carotid artery without mention of cerebral infarction Bruit of right carotid artery Bilateral carotid artery stenosis Occlusion and stenosis of carotid artery without mention of cerebral infarction Carotid occlusion, bilateral Occlusion and stenosis of carotid artery without mention of cerebral infarction documented in this encounter Care Teams Shift Supervisor Rn Relationship Specialty Start Date End Date Marychuy Ríos MD [address] [facility] [address] [place] [address] PCP - General Internal Medicine 11/30/20 06/06/24 Baldomero Roy PA [address] [place] [address] PCP - General Physician Canvas Cutter Hand 06/07/24 documented as of this encounter Additional Source Comments The information contained in this document represents components of the legal health record. It is not the complete legal health record.[facility]
--- OUTSIDE RECORDS SUMMARY | 2024-10-21 11:50 | XMS_ITS | Encounter Summary ---
Author Organization [facility] Address [address] [employer] [facility] [address] [place] [address] Phone Care Team Providers Care Family Caseworker Name Role Phone Baldomero Roy Primary Care Provider + Encounter Details Date Type Department Care Team (Late st Contact Info) Description 06/12/2024 Procedure Pass [facility] Endoscopy Admitting Dept Virtual Department [address] [place] [address] Social History Tobacco Use Types Packs/Day Years [...] on filedocumented in this encounter Care Teams Family Caseworker Relationship Specialty Start Date End Date Baldomero Roy PA [address] [place] [address] PCP - General Physician Refrigeration Systems Installer 06/07/24 documented as of this encounter Additional Source Comments The information contained in this document represents components of the legal health record. It is not the complete legal health record.[facility]
--- OUTSIDE RECORDS SUMMARY | 2024-10-21 11:50 | XMS_ITS | Clinical Summary ---
Author Organization [facility] Address [address] [place] [address] [place] [address] Phone Care Team Providers Care Principal Archaeologist Name Role Phone Marychuy Ríos MD Primary Care Provider [phone] Allergies Active Allergy Reactions Criticality Noted Date [...] Medicaid [place] Care Teams Principal Archaeologist Relationship Specialty Start Date End Date Marychuy Ríos MD [address] [place] [id number] PCP - General Internal Medicine 11/03/20
--- OUTSIDE RECORDS SUMMARY | 2024-10-21 11:50 | XMS_ITS | Encounter Summary ---
Author Organization [facility] Address [address] [employer] [facility] [address] [place] [address] Phone Care Team Providers Care Safety Specialist Name Role Phone Marychuy Ríos MD Primary Care Provider [phone] Baldomero Roy Primary Care Provider + Encounter Details Date Type Department Care Team (Late st Contact Info) Description 11/30/2020 Ancillary Orders [facility] Orthopedics & Sports Medicine [address] [place] [address] [place] [address] Alexander Matthew PA [address] [place] [address] [email or web address] Social History Tobacco Use Types Packs/Day Years [...] on filedocumented in this encounter Care Teams Safety Specialist Relationship Specialty Start Date End Date Marychuy Ríos MD [address] [facility] [address] [place] [address] PCP - General Internal Medicine 11/30/20 06/06/24 Baldomero Roy PA [facility] [place] [address] PCP - General Physician Publication Editor 06/07/24 documented as of this encounter Additional Source Comments The information contained in this document represents components of the legal health record. It is not the complete legal health record.[facility]
--- OUTSIDE RECORDS SUMMARY | 2024-10-21 11:50 | XMS_ITS | Encounter Summary ---
Author Organization [facility] Address [address] [facility] 7t [place] [address] Care Team Providers Care Winding Rack Operator Name Role Phone Unavailable Primary Care Provider [...]
--- OUTSIDE RECORDS SUMMARY | 2024-10-21 11:50 | XMS_ITS | Encounter Summary ---
Author Organization [facility] Address [address] [place] [address] Phone Care Team Providers Care Artificial Breeding Technician Name Role Phone Marychuy Ríos MD Primary Care Provider [phone] Encounter Details Date Type Department Care Team (Late st Contact Info) Description 09/01/2020 Orders Only [facility] [address] [place] [address] [...] 7:46 AM EDT) Glucose 113(H) (70-99) MG/DL [facility] BUN 42(H) (8-23) MG/DL [facility] Creatinine 2.0(H) (0.5-1.0) MG/DL [facility] Sodium 141 (133-145) MMOL/L [facility] Potassium 5.1 (3.6-5.2) MMOL/L [facility] Chloride 106 (98-107) MMOL/L [facility] Bicarbonate (CO2) 23 (22-29) MMOL/L [facility] Anion Gap 12 (4-17) [facility] Albumin 4.2 (3.4-4.8) GM/DL [facility] Calcium 9.5 (8.6-10.5) MG/DL [facility] Phosphorus, Serum 3.8 (2.5-4.5) MG/DL [facility] Est GFR Non 25 ML/MIN/1.7 3 M2 [facility] Comment: Creatinine based estimated glomerular filtration rate (eGFR) is calculated using the Chronic Kidney Disease Epidemiology Collaboration (CKD-EPI). The CKD-EPI creatinine equation has not been validated in children (<18 years), women or in some racial or ethnic subgroups other than Caucasians and Americans. EST GFR 29 ML/MIN/1.7 3 M2 [facility] Comment: Creatinine based estimated glomerular filtration rate (eGFR) is calculated using the Chronic Kidney Disease Epidemiology Collaboration (CKD-EPI). The CKD-EPI creatinine equation has not been validated in children (<18 years), women or in some racial or ethnic subgroups other than Caucasians and Americans. Testing performed or reported by [facility], a Service of [facility], [address] [place] [address] John Muñiz MD, Rn Acute Blood specimen (specimen) Venous blood / Unknown 08/03/2020 7:46 AM EDT 08/03/2020 7:49 AM EDT us London Boyer MD LAB BLOOD ORDERABLES Final Resul t [facility] * (ABNORMAL) CBC (08/03/2020 7:46 AM EDT) Pathologist [facility] White Blood Cells 6.3 (4.0-11.0) K/MM3 [facility] RBC 3.73(L) (4.20-5.40 ) M/MM3 [facility] Hgb 9.7(L) (11.7-15.5 ) GM/DL [facility] Hematocrit 34.5(L) (35.7-45.8 ) % [facility] MCV 92.5 (80.0-100. 0) FL [facility] MCH 26.0(L) (27.0-34.0 ) PG [facility] MCHC 28.1(L) (33.0-37.0 ) g/dL [facility] Platelets 262 (150-460) K/MM3 [facility] RDW-SD 59.2(H) (<47.0) FL [facility] MPV 12.1 (9.4-12.4) FL [facility] nRBC Count 0.3 #/100 WBC'S [facility] NRBC Absolute 0.0 K/MM3 [facility] Comment: Testing performed or reported by [facility], a Service of [facility], [address] [place] [address] John Muñiz MD, Rn Acute Blood specimen (specimen) Venous blood / Unknown 08/03/2020 7:46 AM EDT 08/03/2020 7:49 AM EDT us London Boyer MD LAB BLOOD ORDERABLES Final Resul t [facility] documented in this encounter Visit Diagnoses Diagnosis Stage 3b chronic kidney disease (HCC) Essential hypertension documented in this encounter Care Teams Artificial Breeding Technician Relationship Specialty Start Date End Date Marychuy Ríos MD [address] [place] [address] PCP - General Internal Medicine 11/03/20 documented as of this encounter
== END 2024-10-21 11:02 | disposition home or self-care (01) ==
LOC: HO.HVS 10:17
PROVIDERS: PCP Physician Assistant; Visit Provider Surgery Vascular Surgery
DX: I83.11 Varicose veins of right lower extremity with inflammation (principal); I89.0 Lymphedema, not elsewhere classified
CPT/HCPCS: 99214

== ENCOUNTER 2024-10-29 11:43 | Outpatient (REF) | payer OTHER, SELFPAY ==
[2024-10-29 12:03] LABS: MANUAL DIFF FLAG NO
[2024-10-29 12:37] LABS: Hematocrit 34.2 % (37.0-47.0); Hemoglobin 10.1 g/dl (12.0-16.0); Imm Gran Abs Auto 0.02 X10*3/uL (0.00-0.03); Imm Gran Pct Auto 0.3 % (0.0-0.4); Lymphocytes Absolute Auto 0.7 X10*3/uL (1.2-4.9); Mean Corpuscular HGB Conc 29.5 g/dl (31.0-35.0); Mean Corpuscular Hemoglobin 27.9 pg (27.0-33.0); Mean Corpuscular Volume 94.5 fL (80.0-98.0); NRBC Abs Auto 0.000 X10*3/uL (0.0-0.012); NRBC Pct Auto 0.0 /100WBC (0.0-0.2); Platelet Count 238 X10*3/uL (160-400); Red Blood Count 3.62 X10*6/uL (4.20-5.50); White Blood Count 5.9 X10*3/uL (4.8-10.8)
[2024-10-29 13:04] LABS: Parathyroid Hormone Intact 322.1 pg/mL (8.7-77.1)
[2024-10-29 13:13] LABS: Anion Gap 16 (12-20); Blood Urea Nitrogen 62 mg/dL (9-16); Calcium 9.3 mg/dL (8.4-10.2); Carbon Dioxide 27 mmol/L (22-29); Chloride 107 mmol/L (96-108); Estimated Glomerular Filt Rate 19; Potassium 5.0 mmol/L (3.3-5.1); Sodium 145 mmol/L (135-145)
--- OUTSIDE RECORDS SUMMARY | 2024-10-29 14:57 | XMS_ITS | Encounter Summary ---
Author Organization [facility] Address [address] [employer] [facility] [address] [place] [address] Phone Care Team Providers Care Canal Lock Tender Chief Operator Name Role Phone Marychuy Ríos MD Primary Care Provider [phone] Baldomero Roy Primary Care Provider + Encounter Details Date Type Department Care Team (Late st Contact Info) Description 11/30/2020 Ancillary Orders [facility] Orthopedics & Sports Medicine [address] [place] [address] [place] [address] Alexander Matthew PA [address] [place] [address] [email or web address] Social History Tobacco Use Types Packs/Day [...] on filedocumented in this encounter Care Teams Canal Lock Tender Chief Operator Relationship Specialty Start Date End Date Marychuy Ríos MD [address] [facility] 202 [place] [address] PCP - General Internal Medicine 11/30/20 06/06/24 Baldomero Roy PA [facility] [place] [address] PCP - General Physician Claim Agent 06/07/24 documented as of this encounter Additional Source Comments The information contained in this document represents components of the legal health record. It is not the complete legal health record.[facility]
--- OUTSIDE RECORDS SUMMARY | 2024-10-29 14:57 | XMS_ITS | Encounter Summary ---
Author Organization [facility] Address [facility] [address] [facility] [address] [place] [address] Phone Care Team Providers Care Asphalt Mixer Name Role Phone Marychuy Ríos MD Primary Care Provider Baldomero Roy Primary Care Provider + Encounter Details Date Type Department Care Team (Late st Contact Info) Description 12/13/2022 Ancillary Orders [facility] Medical [facility] Orthopedics & Sports Medicine [address] [place] [address] Raphael Graf MD [address] [place] [address] Orthopedics & Sports Medicine, [place] [address] [email or web address] Pain Social History Tobacco Use Types Packs/Day [...] of the lateral joint space with probable rldj-xa-klrp contact. Also on the right is arterial [...] narrowing ofthe lateral joint space with probable mbyt-qh-olsg contact. Also on theright is arterial vascular [...] pain documented in this encounter Care Teams Asphalt Mixer Relationship Specialty Start Date End Date Marychuy Ríos MD [address] [facility] [address] [place] [address] PCP - General Internal Medicine 11/30/20 06/06/24 Baldomero Roy PA [address] [place] [address] PCP - General Physician Choir Teacher 06/07/24 documented as of this encounter Additional Source Comments The information contained in this document represents components of the legal health record. It is not the complete legal health record.[facility]
--- OUTSIDE RECORDS SUMMARY | 2024-10-29 14:57 | XMS_ITS | Encounter Summary ---
Author Organization [facility] Address [address] [facility] 7t [place] [address] Care Team Providers Care Marine Electronics Technician Name Role Phone Unavailable Primary Care Provider [...]
--- OUTSIDE RECORDS SUMMARY | 2024-10-29 14:57 | XMS_ITS | Encounter Summary ---
Author Organization [employer] [facility] Address [address] [facility] 7t [place] [address] Care Team Providers Care Client Service Executive Name Role Phone Unavailable Primary Care [...]
--- OUTSIDE RECORDS SUMMARY | 2024-10-29 14:57 | XMS_ITS | Encounter Summary ---
Author Organization [facility] Address [address] [facility] [address] [place] [address] Phone Care Team Providers Care Remote Coders Name Role Phone Baldomero Roy Primary Care Provider + Encounter Details Date Type Department Care Team (Late st Contact Info) Description 06/12/2024 Procedure Pass [facility] Endoscopy Admitting Dept Virtual Department 30 [place] [address] Social History Tobacco Use Types Packs/Day Years [...] on filedocumented in this encounter Care Teams Remote Coders Relationship Specialty Start Date End Date Baldomero Roy PA [address] [place] [address] PCP - General Physician Cross Country/Track And Field Coach 06/07/24 documented as of this encounter Additional Source Comments The information contained in this document represents components of the legal health record. It is not the complete legal health record.[facility]
--- OUTSIDE RECORDS SUMMARY | 2024-10-29 14:57 | XMS_ITS | Clinical Summary ---
Author Organization [facility] Address [address] [place] [address] Phone Care Team Providers Care Elementary [employer] Principal Name Role Phone Marychuy Ríos MD Primary Care Provider [phone] Allergies Active Allergy Reactions Criticality Noted Date [...] Medicaid [place] Medicare Medicaid [place] Care Teams Elementary School Principal Relationship Specialty Start Date End Date Marychuy Ríos MD [address] [place] [address] PCP - General Internal Medicine 11/03/20
--- OUTSIDE RECORDS SUMMARY | 2024-10-29 14:57 | XMS_ITS | Encounter Summary ---
Author Organization [facility] Address [address] [place] [address] Phone Care Team Providers Care Multicultural Manager Name Role Phone Marychuy Ríos MD Primary Care Provider [phone] Encounter Details Date Type Department Care Team (Late st Contact Info) Description 09/01/2020 Orders Only [facility] [address] [place] [address] [place] [address] London Boyer MD Stage 3b chronic [...] 7:46 AM EDT) Glucose 113(H) (70-99) MG/DL [facility] BUN 42(H) (8-23) MG/DL [facility] Creatinine 2.0(H) (0.5-1.0) MG/DL [facility] Sodium 141 (133-145) MMOL/L [facility] Potassium 5.1 (3.6-5.2) MMOL/L [facility] Chloride 106 (98-107) MMOL/L [facility] Bicarbonate (CO2) 23 (22-29) MMOL/L [facility] Anion Gap 12 (4-17) [facility] Albumin 4.2 (3.4-4.8) GM/DL [facility] Calcium 9.5 (8.6-10.5) MG/DL [facility] Phosphorus, Serum 3.8 (2.5-4.5) MG/DL [facility] Est GFR Non 25 ML/MIN/1.7 3 M2 [facility] Comment: Creatinine based estimated glomerular filtration rate (eGFR) is calculated using the Chronic Kidney Disease Epidemiology Collaboration (CKD-EPI). The CKD-EPI creatinine equation has not been validated in children (<18 years), women or in some racial or ethnic subgroups other than Caucasians and Americans. EST GFR 29 ML/MIN/1.7 3 M2 [facility] Comment: Creatinine based estimated glomerular filtration rate (eGFR) is calculated using the Chronic Kidney Disease Epidemiology Collaboration (CKD-EPI). The CKD-EPI creatinine equation has not been validated in children (<18 years), women or in some racial or ethnic subgroups other than Caucasians and Americans. Testing performed or reported by [facility], a Service of [facility], [address] [place] [address] John Muñiz MD, Poker In Blood specimen (specimen) Venous blood / Unknown 08/03/2020 7:46 AM EDT 08/03/2020 7:49 AM EDT us London Boyer MD LAB BLOOD ORDERABLES Final Resul t [facility] * (ABNORMAL) CBC (08/03/2020 7:46 AM EDT) Pathologist [facility] White Blood Cells 6.3 (4.0-11.0) K/MM3 [facility] RBC 3.73(L) (4.20-5.40 ) M/MM3 [facility] Hgb 9.7(L) (11.7-15.5 ) GM/DL [facility] Hematocrit 34.5(L) (35.7-45.8 ) % [facility] MCV 92.5 (80.0-100. 0) FL [facility] MCH 26.0(L) (27.0-34.0 ) PG [facility] MCHC 28.1(L) (33.0-37.0 ) g/dL [facility] Platelets 262 (150-460) K/MM3 [facility] RDW-SD 59.2(H) (<47.0) FL [facility] MPV 12.1 (9.4-12.4) [place] [facility] nRBC Count 0.3 #/100 WBC'S [facility] NRBC Absolute 0.0 K/MM3 [facility] Comment: Testing performed or reported by [facility], a Service of [facility], [address] [place] [address] John Muñiz MD, Poker In Blood specimen (specimen) Venous blood / Unknown 08/03/2020 7:46 AM EDT 08/03/2020 7:49 AM EDT us London Boyer MD LAB BLOOD ORDERABLES Final Resul t [facility] documented in this encounter Visit Diagnoses Diagnosis Stage 3b chronic kidney disease (HCC) Essential hypertension documented in this encounter Care Teams Multicultural Manager Relationship Specialty Start Date End Date Marychuy Ríos MD [address] [place] [address] PCP - General Internal Medicine 11/03/20 documented as of this encounter
--- OUTSIDE RECORDS SUMMARY | 2024-10-29 14:57 | XMS_ITS | Clinical Summary ---
Author Organization [facility] Address [address] [address] Phone Care Team Providers Care Global Marketing Coordinator Name Role Phone Baldomero Roy Primary Care [...] 200 mg magnesium Chew Activ e ascorbic nzto-wumhlwsq-m in (VITAMIN C ENERGY BOOSTER) 1,000 mg [...] Care Team Description 08/15/2024 Orders Only [facility] [address] [place] [address] Homehealth, Interface ProviderMD from Last 3 Months [...] (06/12/2024 7:48 AM EDT) Narrative Transcriptions Sixto Yen MD - 06/12/2024 7:48 AM EDT [facility] Patient Name: Yecenia Easton Eder Attending MD:: SIXTO YEN MD, Procedure Date: 06/12/2024 7:48 AM Date of : 1950 Age: 74 Admit Type: Inpatient Gender: Female Room: [place] [address] Referring MD: Baldomero Roy Exam Type: Colonoscopy [...] bowel preparation was evaluated using the BBPS ([place] Bowel Preparation Scale) with scores of:Right Colon [...] 7:48 AM Procedure Code(s): --- Professional --- 73978, Colonoscopy, flexible; diagnostic, including collection of specimen(s) by brushing or washing, when performed (separateprocedure) --- Technical --- 32422, Colonoscopy, flexible; diagnostic, including collection of specimen(s) by brushing or washing, when performed (separateprocedure) Diagnosis Code(s): --- Professional --- D50.9, Iron deficiency anemia, unspecified K57.30, Diverticulosis of large intestine without perforation or abscess without bleeding --- Technical --- D50.9, Iron deficiency anemia, unspecified K57.30, Diverticulosis of large intestine without perforation or abscess without bleeding CPT copyright 2021 [employer]. All rights reserved. The codes documented in this report are preliminary and upon palliative care nurse practitioner reviewmay be revised to meet current compliance requirements. Procedure Date: 06/12/2024 7:48:04 AM [address] [place] [address] Baldomero AGUIRRE GI PROCEDURE ORDERABLES Final Result * (ABNORMAL) Basic metabolic panel (06/12/2024 5:14 AM EDT) SODIUM 140 133 - 146 mmol/L [facility] CHLORIDE 98 96 - 108 mmol/L [facility] POTASSIUM 3.5 3.3 - 5.1 mmol/L [facility] CO2 31 21 - 35 mmol/L [facility] BUN 31(H) 6 - 19 mg/dL [facility] CREATININE 2.30(H) 0.5 - 1.5 mg/dL [facility] GLUCOSE 104(H) 70 - 99 mg/dL [facility] CALCIUM 8.8 8.4 - 10.3 mg/dL [facility] EGFR 22(L) >59 mL/min/1.7 3m2 [facility] Comment:Estimated glomerular filtration rate calculated using the CKD-EPI refit equation. ANION GAP 15 10 - 20 mmol/L [facility] Blood 06/12/2024 5:14 AM EDT 06/12/2024 5:39 AM EDT us Pranay Rizo MD LAB BLOOD ORDERABLES Final R esult [address] [address] from Last 3 Months or Most Recently Relevant to Health Maintenance Insurance MEDICARE PART A & B [facility] MEDICARE PART A & B [employer] [place] [place] PART [place] & B [place]IC[place] A [place] B [facility] MEDICARE PART A & [facility] [place] A [place] [address] [facility]ICARE [facility] Advance Directives For more information, please contact: [phone] (9AM - 5PM [facility], Sunday-Sunday) Documents on File Type Date Recorded Patient Information Assurance Engineer Expl anation Healthcare Proxy 06/13/2024 3:02 PM Healthcare Proxy 06/12/2024 5:49 PM Health Care Proxy * Full Code (Latest Code Status on File) Date Activated Date Inactivated Comments 06/07/2024 9:14 PM Question Answer Comments Code Status Confirmed With: Patient Healthcare Agents on File Name Relationship Healthcare Agent [facility] p Communication Sree Lurdesking Friend .Primary Health Care Agent (Proxy form on file) Care Teams Global Marketing Coordinator Relationship Specialty Start Date End Date Baldomero Roy PA [address] [place] [address] PCP - General Physician Multiple Coil Winder 06/07/24 Additional Source Comments The information contained in this document represents components of the legal health record. It is not the complete legal health record.[facility]
--- OUTSIDE RECORDS SUMMARY | 2024-10-29 14:57 | XMS_ITS | Encounter Summary ---
Author Organization [facility] Address [address] [place] [address] Phone Care Team Providers Care Distribution Agent Name Role Phone Baldomero Roy Primary Care Provider + Encounter Details Date Type Department Care Team (Late st Contact Info) Description 06/08/2024 Procedure Pass [facility] [address] [place] [address] Social History Tobacco Use Types Packs/Day Years [...] on filedocumented in this encounter Care Teams Distribution Agent Relationship Specialty Start Date End Date Baldomero Roy PA [address] [place] [address] PCP - General Physician Commercial Attorney 06/07/24 documented as of this encounter Additional Source Comments The information contained in this document represents components of the legal health record. It is not the complete legal health record.[facility]
--- OUTSIDE RECORDS SUMMARY | 2024-10-29 14:57 | XMS_ITS | Clinical Summary ---
Author Organization [employer] Address [address] [facility] [address] [place] [address] Care Team Providers Care Fire Alarm Installer Name Role Phone Unavailable Primary Care [...]
--- OUTSIDE RECORDS SUMMARY | 2024-10-29 14:57 | XMS_ITS | Encounter Summary ---
Author Organization [facility] Address [address] [place] [address] Phone Care Team Providers Care Production Mechanic Name Role Phone Marychuy Ríos MD Primary Care Provider [phone] Baldomero Roy Primary Care Provider + Reason [...] Expiration Date Visits Re quested Visits Authorized [id number] Closed 11/14/2021 11/14/2022 1 1 Encounter Details Date Type Department Care Team (Late st Contact Info) Description 11/14/2021 Transcribe Orders Virtual Department [address] [place] [address] Marychuy Ríos MD [address] [address] Bruit of right carotid artery (Primary Dx); [...] infarction documented in this encounter Care Teams Production Mechanic Relationship Specialty Start Date End Date Marychuy Ríos MD [address] [facility] [address] [place] [address] PCP - General Internal Medicine 11/30/20 06/06/24 Baldomero Roy PA [address] [place] [address] PCP - General Physician Furnace Reliner 06/07/24 documented as of this encounter Additional Source Comments The information contained in this document represents components of the legal health record. It is not the complete legal health record.[facility]
--- OUTSIDE RECORDS SUMMARY | 2024-10-29 14:57 | XMS_ITS | Encounter Summary ---
Author Organization [facility] Address [address] [employer] [facility] [address] [place] [address] Phone Care Team Providers Care Web Master Name Role Phone Marychuy Ríos MD Primary Care Provider [phone] Baldomero Roy Primary Care Provider + Encounter Details Date Type Department Care Team (Late st Contact Info) Description 11/30/2020 Ancillary Orders [facility] [address] [place] [address] [place] [address] Alexander Matthew PA [address] [place] [address] [email or web address] Social History Tobacco Use Types Packs/Day [...] on filedocumented in this encounter Care Teams Web Master Relationship Specialty Start Date End Date Marychuy Ríos MD [address] [facility] [address] [place] [address] PCP - General Internal Medicine 11/30/20 06/06/24 Baldomero Roy PA [facility] [place] [address] PCP - General Physician Spirits Model 06/07/24 documented as of this encounter Additional Source Comments The information contained in this document represents components of the legal health record. It is not the complete legal health record.[facility]
== END 2024-10-29 11:44 | disposition home or self-care (01) ==
LOC: HO.LAB 11:43
PROVIDERS: PCP Physician Assistant; Visit Provider Internal Medicine Nephrology
DX: I12.9 Hypertensive chronic kidney disease with stage 1 through stage 4 chronic kidney disease, or unspecified chronic kidney disease (principal); N18.32 Chronic kidney disease, stage 3b; D63.1 Anemia in chronic kidney disease; N25.81 Secondary hyperparathyroidism of renal origin; R80.8 Other proteinuria
CPT/HCPCS: 36415; 80051; 82310; 82565; 83970; 84100; 84520; 85025

== ENCOUNTER 2024-11-03 10:52 | Outpatient (AMB) | payer OTHER, SELFPAY ==
--- NOTE | 2024-11-03 11:05 | HO.NEPHOV_ITS ---
Vital Signs 11/03/24 11:11 Height 5 ft 8 in Weight 163 lb 6 oz BMI 24.8 BP 140/90 H Blood Pressure Location Rt brachial Position Sitting Pulse 65 Pulse Source Pulse Oximeter Pulse Oximetry (%) 99 Oxygen Delivery Method Room Air Intake Visit Reasons: 1mon f/u w/labs-LVM Custom Stock Maker Required: No Accompanied by: Self / Same As Patient Allergies lisinopril Allergy (Severe, Verified 11/03/24 11:11) Unknown codeine Allergy (Intermediate, Verified 11/03/24 11:11) Nausea latex Allergy (Intermediate, Verified 11/03/24 11:11) Rash hydrochlorothiazide Allergy (Unknown, Verified 11/03/24 11:11) Unknown morphine Allergy (Unknown, Verified 11/03/24 11:11) Nausea SHAYY Inhibitors Adverse Reaction (Unknown, Verified 11/03/24 11:11) Unknown HPI Comments Details: Yecenia is a 74-year-old female with a PMH significant for?CAD s/p stenting 2018, hx of DVT with pulmonary embolism 2017 on Eliquis, HTN, HLD, CKD 3, chronic anemia requiring transfusions in the past, diet-controlled diabetes type 2, osteoarthritis, and chronic lower leg edema was seen for F/U today. She has been needing PRBC transfusions- she has had a colonoscopy at [facility] and an upper endoscopy and sigmoidoscopy at [facility] on 08/19/24 while in the hospital- no source of bleeding found, capsule study findings pending per most recent GI notes. Patient also expressed her frustration about ongoing right knee and leg pain and swelling afternoon undergoing intra-articular steroids. She was seen by orthopedic service and pain management as an outpatient. Unfortunately, Yecenia's mother , she states she is doing ok, grieving. She denies shortness of breath, chest pain, orthopnea or urinary symptoms. Her creatinine is 2.53 now. Her BP is 140/90 [facility] Medical History Graves disease CAD (coronary artery disease) Osteoarthritis Hx of transfusion of packed red blood cells Diet-controlled diabetes mellitus Pulmonary embolism DVT (deep venous thrombosis) Anemia in chronic kidney disease Hypertension CKD (chronic kidney disease) stage 3, GFR 30-59 ml/min Surgical History Hx of heart artery stent History of partial hysterectomy Family History Maternal Grandfather Stomach cancer Social History Household Members: None Housing: Apartment Do you presently have visiting nurse or other home services: No Alcohol intake: never Patient Tobacco Use Status: Former Tobacco user Tobacco use type: Cigarette e-Cigarette/Vaping Use: Never Used service: No Current occupational status: retired Cognitive needs: No Hearing needs: Yes Vision needs: No Review of Systems Const All systems reviewed & are unremarkable except as noted in HPI and below Physical Exam Vital Signs: Last Vital Signs Pulse 65 11/03/24 11:11 BP 180/90 H 11/03/24 11:11 Pulse Ox 99 11/03/24 11:11 Oxygen Delivery Method Room Air 11/03/24 11:11 BMI result Body Mass Index 24.8 Const General: comfortable and no acute distress Orientation/consciousness: patient oriented x3 HEENT Head: Yes normocephalic Mouth: Normal oral and palatal mucosa present Eyes EOM: EOMs intact bilaterally Neck Neck: Yes supple Resp Auscultation: clear to auscultation bilaterally Cardio Jugular venous distension: no JVD Rate: regular rate GI Palpation (GI): Soft to palpation Auscultation: normal bowel sounds General: Yes no CVA tenderness Back/Spine/Pelvis Back: no CVA tenderness Skin General skin exam: no rashes or lesions noted Neuro General: patient oriented x3 and moves all extremities Extrem General: Yes no pedal edema Office Meds epoetin walt-epbx 10,000 unit/mL injection solution Performing Provider: London Boyer MD [facility] Administered by: London Boyer MD on 11/03/24 11:24 Dose Route Admin Location Dispensed Lot Number Expiration Date [facility] Trauma Coordinator 20,000 unit subcut LUE 2 mL [id number] 03/22/26 5074-8565-72 [employer] Total Dispensed Waste 2 mL 0 % Results Reviewed Nephrology Results: Hgb, (12.0-16.0) 10.1 g/dl L Δ 10/29/24 WBC, (4.8-10.8) 5.9 X10*3/uL 10/29/24 Plt Count, (160-400) 238 X10*3/uL 10/29/24 Sodium, (135-145) 145 mmol/L 10/29/24 Potassium, (3.3-5.1) 5.0 mmol/L 10/29/24 Chloride, (96-108) 107 mmol/L 10/29/24 Carbon Dioxide, (22-29) 27 mmol/L 10/29/24 BUN, (9-16) 62 mg/dL H 10/29/24 Creatinine, (0.5-1.4) 2.53 mg/dL H 10/29/24 Calcium, (8.4-10.2) 9.3 mg/dL 10/29/24 Phosphorus, (2.7-4.5) 3.8 mg/dL 10/29/24 PTH Intact, (8.7-77.1) 322.1 pg/mL H 10/29/24 Assessment & Plan Assessment & Plan (1) Hypertension: Code(s): I10 - Essential (primary) hypertension Category: Medical Qualifiers: Hypertension type: primary hypertension Qualified Code(s): I10 - Essential (primary) hypertension (2) Secondary hyperparathyroidism (of renal origin): Code(s): N25.81 - Secondary hyperparathyroidism of renal origin Category: Medical (3) CKD (chronic kidney disease) stage 3, GFR 30-59 ml/min: Code(s): N18.30 - Chronic kidney disease, stage 3 unspecified Category: Medical Qualifiers: Chronic kidney disease stage 3 subtype: stage 3a (GFR 45-59) Qualified Code(s): N18.31 - Chronic kidney disease, stage 3a (4) Proteinuria: Code(s): R80.9 - Proteinuria, unspecified Category: Medical Qualifiers: Proteinuria type: other Qualified Code(s): R80.8 - Other proteinuria (5) Anemia in chronic kidney disease: Code(s): N18.9 - Chronic kidney disease, unspecified; D63.1 - Anemia in chronic kidney disease Category: Medical Qualifiers: Chronic kidney disease stage: stage 3 (moderate) Chronic kidney disease stage 3 subtype: stage 3b (GFR 30-44) Qualified Code(s): N18.32 - Chronic kidney disease, stage 3b; D63.1 - Anemia in chronic kidney disease Plan Yecenia has chronic kidney disease and longstanding hypertension. 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 She is known to have coronary artery disease and has undergone angioplasty and stenting. She had an upper endoscopy, colonoscopy and sigmoidoscopy. She has seen GI and has a F/U. Her edema is better. She can continue lasix 40mg daily. I administered Procrit 20 K Units in the office today. She had a Hematology consult. She is due to have a bone marrow biopsy ( needs to R/O sickle cell trait/ hypoplastic marrow/ anti EPO antibody ). She needs to maintain low-sodium & K diet. Follow up blood work ordered. Answered all questions. Orders: Orders Complete Blood Count Auto Diff 1 Month D63.1 - Anemia in chronic kidney disease, I10 - Essential (primary) hypertension, N18.31 - Chronic kidney disease, stage 3a, N18.32 - Chronic kidney disease, stage 3b, N25.81 - Secondary hyperparathyroidism of renal origin, R80.8 - Other proteinuria Calcium 1 Month D63.1 - Anemia in chronic kidney disease, I10 - Essential (primary) hypertension, N18.31 - Chronic kidney disease, stage 3a, N18.32 - Chronic kidney disease, stage 3b, N25.81 - Secondary hyperparathyroidism of renal origin, R80.8 - Other proteinuria Phosphorus 1 Month D63.1 - Anemia in chronic kidney disease, I10 - Essential (primary) hypertension, N18.31 - Chronic kidney disease, stage 3a, N18.32 - Chronic kidney disease, stage 3b, N25.81 - Secondary hyperparathyroidism of renal origin, R80.8 - Other proteinuria AMB Epoetin Injection Practice Supplied Today D63.1 - Anemia in chronic kidney disease, N18.32 - Chronic kidney disease, stage 3b Electrolytes 1 Month D63.1 - Anemia in chronic kidney disease, I10 - Essential (primary) hypertension, N18.31 - Chronic kidney disease, stage 3a, N18.32 - Chronic kidney disease, stage 3b, N25.81 - Secondary hyperparathyroidism of renal origin, R80.8 - Other proteinuria Blood Urea Nitrogen 1 Month D63.1 - Anemia in chronic kidney disease, I10 - Essential (primary) hypertension, N18.31 - Chronic kidney disease, stage 3a, N18.32 - Chronic kidney disease, stage 3b, N25.81 - Secondary hyperparathyroidism of renal origin, R80.8 - Other proteinuria Creatinine 1 Month D63.1 - Anemia in chronic kidney disease, I10 - Essential (primary) hypertension, N18.31 - Chronic kidney disease, stage 3a, N18.32 - Chronic kidney disease, stage 3b, N25.81 - Secondary hyperparathyroidism of renal origin, R80.8 - Other proteinuria Coding Level of Care Code Est Pt Level 4 (67389) Diagnoses Primary hypertension I10 Hypertension type: primary hypertension Secondary hyperparathyroidism (of renal origin) N25.81 Stage 3a chronic kidney disease N18.31 Chronic kidney disease stage 3 subtype: stage 3a (GFR 45-59) Other proteinuria R80.8 Proteinuria type: other Anemia in stage 3b chronic kidney disease N18.32; D63.1 Chronic kidney disease stage: stage 3 (moderate) Chronic kidney disease stage 3 subtype: stage 3b (GFR 30-44)
[2024-11-03 11:11] VITALS: BP 140/90; PULSE 65; O2SAT 99; BMI 24.8
--- OUTSIDE RECORDS SUMMARY | 2024-11-03 14:27 | XMS_ITS | Encounter Summary ---
Author Organization [facility] Address [facility] [address] [place] [address] Phone Care Team Providers Care Dining Room Cashier Name Role Phone Marychuy Ríos MD Primary Care Provider Baldomero Roy Primary Care Provider + Encounter Details Date Type Department Care Team (Late st Contact Info) Description 12/13/2022 Ancillary Orders [facility] [address] [place] [address] Raphael Graf MD [address] [place] [address] Orthopedics & Sports Medicine, [facility] [place] [address] [email or web address] Pain Social History Tobacco Use Types Packs/Day [...] of the lateral joint space with probable otdu-kl-hpfc contact. Also on the right is arterial [...] narrowing ofthe lateral joint space with probable ltai-fz-xqtn contact. Also on theright is arterial vascular calcification in the posterior soft tissues.Mild to moderate hypertrophic changes are identified at the tibial spinesand patella. IMPRESSION: No fracture or dislocation. Lateral joint space narrowing bilaterally right much greater than left. us Raphael rGaf MD IMG XR LOWER EXTREMITY Final Result documented in this encounter Visit Diagnoses Diagnosis Pain Generalized pain Pain Generalized pain documented in this encounter Care Teams Dining Room Cashier Relationship Specialty Start Date End Date Marychuy Ríos MD [address] [facility] [address] [place] [address] PCP - General Internal Medicine 11/30/20 06/06/24 Baldomero Roy PA [address] [place] [address] PCP - General Physician Pediatric Neuropsychologist 06/07/24 documented as of this encounter Additional Source Comments The information contained in this document represents components of the legal health record. It is not the complete legal health record.[facility]
--- OUTSIDE RECORDS SUMMARY | 2024-11-03 14:27 | XMS_ITS | Encounter Summary ---
Author Organization [facility] Address [address] [place] [address] Phone Care Team Providers Care Orchid Grower Name Role Phone Baldomero Roy Primary Care Provider + Encounter Details Date Type Department Care Team (Late st Contact Info) Description 06/08/2024 Procedure Pass [facility] [address] [place] [address] Social History Tobacco Use Types Packs/Day Years Used Date Smoking Tobacco: Never Smokeless Tobacco: Never Alcohol Use Standard Drinks/Week Comments Never 0 (1 standard drink = 0.6 oz pur e alcohol) Education Answer Date Recorded Are you interested in more education? Not on joesp e 06/16/2022 Are you concerned about learning? [...] on filedocumented in this encounter Care Teams Orchid Grower Relationship Specialty Start Date End Date Baldomero Roy PA [address] [place] [address] PCP - General Physician Ad Terminal Makeup Operator 06/07/24 documented as of this encounter Additional Source Comments The information contained in this document represents components of the legal health record. It is not the complete legal health record.[facility]
--- OUTSIDE RECORDS SUMMARY | 2024-11-03 14:27 | XMS_ITS | Encounter Summary ---
Author Organization [facility] Address [address] [employer] [facility] [address] [place] [address] Phone Care Team Providers Care Manager Technical Name Role Phone Marychuy Ríos MD Primary Care Provider [phone] Baldomero Roy Primary Care Provider + Encounter Details Date Type Department Care Team (Late st Contact Info) Description 11/30/2020 Ancillary Orders [facility] [address] [place] [address] [place] [address] Alexander Matthew PA 6 [place] [address] [email or web address] Social History Tobacco Use Types Packs/Day Years [...] on filedocumented in this encounter Care Teams Manager Technical Relationship Specialty Start Date End Date Marychuy Ríos MD [address] [facility] 202 [place] [address] PCP - General Internal Medicine 11/30/20 06/06/24 Baldomero Roy PA [facility]1 [place] [address] PCP - General Physician Communications Superintendent 06/07/24 documented as of this encounter Additional Source Comments The information contained in this document represents components of the legal health record. It is not the complete legal health record.[facility]
--- OUTSIDE RECORDS SUMMARY | 2024-11-03 14:27 | XMS_ITS | Encounter Summary ---
Author Organization [facility] Address [address] [employer] [facility] [address] [place] [address] Phone Care Team Providers Care Colorist Photography Name Role Phone Marychuy Ríos MD Primary Care Provider [phone] Baldomero Roy Primary Care Provider + Encounter Details Date Type Department Care Team (Late st Contact Info) Description 11/30/2020 Ancillary Orders [facility] Orthopedics & Sports Medicine [address] [place] [address] [place] [address] Alexander Matthew PA 6 [place] [address] [email or web address] Social History Tobacco Use Types Packs/Day [...] on filedocumented in this encounter Care Teams Colorist Photography Relationship Specialty Start Date End Date Marychuy Ríos MD [address] [facility] 202 [place] [address] PCP - General Internal Medicine 11/30/20 06/06/24 Baldomero Roy PA [facility]1 [place] [address] PCP - General Physician Industrial Hygenist 06/07/24 documented as of this encounter Additional Source Comments The information contained in this document represents components of the legal health record. It is not the complete legal health record.[facility]
--- OUTSIDE RECORDS SUMMARY | 2024-11-03 14:27 | XMS_ITS | Encounter Summary ---
Author Organization [facility] Address [address] [facility] 7t [place] [address] Care Team Providers Care Global Commodity Manager Name Role Phone Unavailable Primary Care [...]
--- OUTSIDE RECORDS SUMMARY | 2024-11-03 14:27 | XMS_ITS | Encounter Summary ---
Author Organization [facility] Address [address] [facility] 7t [place] [address] Care Team Providers Care Clothes Wringer Name Role Phone Unavailable Primary Care Provider [...]
--- OUTSIDE RECORDS SUMMARY | 2024-11-03 14:27 | XMS_ITS | Clinical Summary ---
Author Organization [facility] Address [address] [address] Phone Care Team Providers Care Circus Hand Name Role Phone Baldomero Roy Primary Care [...] 200 mg magnesium Chew Activ e ascorbic iqni-oxsixraw-a in (VITAMIN C ENERGY BOOSTER) 1,000 mg [...] Care Team Description 08/15/2024 Orders Only [facility] [address] [place] [address] Homehealth, Interface ProviderMD from Last 3 Months [...] Yen MD - 06/12/2024 7:48 AM EDT [facility] Patient Name: Yecenia Easton Eder Attending MD:: SIXTO YEN MD, Procedure Date: 06/12/2024 7:48 AM Date of : 1950 Age: 74 Admit Type: Inpatient Gender: Female Room: [place] [address] Referring MD: Baldomero Roy Exam Type: Colonoscopy [...] bowel preparation was evaluated using the BBPS ([place] Bowel Preparation Scale) with scores of:Right Colon [...] 7:48 AM Procedure Code(s): --- Professional --- 85501, Colonoscopy, flexible; diagnostic, including collection of specimen(s) by brushing or washing, when performed (separateprocedure) --- Technical --- 15905, Colonoscopy, flexible; diagnostic, including collection of specimen(s) by brushing or washing, when performed (separateprocedure) Diagnosis Code(s): --- Professional --- D50.9, Iron deficiency anemia, unspecified K57.30, Diverticulosis of large intestine without perforation or abscess without bleeding --- Technical --- D50.9, Iron deficiency anemia, unspecified K57.30, Diverticulosis of large intestine without perforation or abscess without bleeding CPT copyright 2021 [employer]. All rights reserved. The codes documented in this report are preliminary and upon occasional caregiver reviewmay be revised to meet current compliance requirements. Procedure Date: 06/12/2024 7:48:04 AM 30 [place] [address] Baldomero AGUIRRE GI PROCEDURE ORDERABLES Final Result * (ABNORMAL) Basic metabolic panel (06/12/2024 5:14 AM EDT) SODIUM 140 133 - 146 mmol/L [facility] CHLORIDE 98 96 - 108 mmol/L [facility] POTASSIUM 3.5 3.3 - 5.1 mmol/L [facility] CO2 31 21 - 35 mmol/L [facility] BUN 31(H) 6 - 19 mg/dL [facility] CREATININE 2.30(H) 0.5 - 1.5 mg/dL [facility] GLUCOSE 104(H) 70 - 99 mg/dL [facility] CALCIUM 8.8 8.4 - 10.3 mg/dL [facility] EGFR 22(L) >59 mL/min/1.7 3m2 [facility] Comment:Estimated glomerular filtration rate calculated using the CKD-EPI refit equation. ANION GAP 15 10 - 20 mmol/L [facility] Blood 06/12/2024 5:14 AM EDT 06/12/2024 5:39 AM EDT us Pranay Rizo MD LAB BLOOD ORDERABLES Final R esult [address] [address] from Last 3 Months or Most Recently Relevant to Health Maintenance Insurance MEDICARE PART A & B [facility] MEDICARE PART A & B [employer] MEDICARE PART A & B [place] [facility] MEDICARE [facility] A & B [facility] MEDIC[facility] PART A & B [facility] MEDICARE PART A & [place] [address] [facility]ICARE [facility] Advance Directives For more information, please contact: [phone] (9AM - 5PM [facility], Sunday-Sunday) Documents on File Type Date Recorded Patient Customer Experience Specialist Expl anation Healthcare Proxy 06/13/2024 3:02 PM Healthcare Proxy 06/12/2024 5:49 PM Health Care Proxy * Full Code (Latest Code Status on File) Date Activated Date Inactivated Comments 06/07/2024 9:14 PM Question Answer Comments Code Status Confirmed With: Patient Healthcare Agents on File Name Relationship Healthcare Agent [facility] p Communication Sree Lurdesking Friend .Primary Health Care Agent (Proxy form on file) Care Teams Circus Hand Relationship Specialty Start Date End Date Baldomero Roy PA [address] [place] [address] PCP - General Physician Enterprise Applications Manager 06/07/24 Additional Source Comments The information contained in this document represents components of the legal health record. It is not the complete legal health record.[facility]
--- OUTSIDE RECORDS SUMMARY | 2024-11-03 14:27 | XMS_ITS | Clinical Summary ---
Author Organization [employer] Address [address] [facility] 7t [place] [address] Care Team Providers Care Network Security Engineer Name Role Phone Unavailable Primary Care [...]
--- OUTSIDE RECORDS SUMMARY | 2024-11-03 14:27 | XMS_ITS | Encounter Summary ---
Author Organization [facility] Address [address] [place] [address] Phone Care Team Providers Care Operations Advisor Name Role Phone Marychuy Ríos MD Primary Care Provider [phone] Encounter Details Date Type Department Care Team (Late st Contact Info) Description 09/01/2020 Orders Only [facility] [address] [place] [address] London Boyer MD Stage 3b chronic [...] 7:46 AM EDT) Glucose 113(H) (70-99) MG/DL [facility] BUN 42(H) (8-23) MG/DL [facility] Creatinine 2.0(H) (0.5-1.0) MG/DL [facility] Sodium 141 (133-145) MMOL/L [facility] Potassium 5.1 (3.6-5.2) MMOL/L [facility] Chloride 106 (98-107) MMOL/L [facility] Bicarbonate (CO2) 23 (22-29) MMOL/L [facility] Anion Gap 12 (4-17) [facility] Albumin 4.2 (3.4-4.8) GM/DL [facility] Calcium 9.5 (8.6-10.5) MG/DL [facility] Phosphorus, Serum 3.8 (2.5-4.5) MG/DL [facility] Est GFR Non 25 ML/MIN/1.7 3 M2 [facility] Comment: Creatinine based estimated glomerular filtration rate (eGFR) is calculated using the Chronic Kidney Disease Epidemiology Collaboration (CKD-EPI). The CKD-EPI creatinine equation has not been validated in children (<18 years), women or in some racial or ethnic subgroups other than Caucasians and Americans. EST GFR 29 ML/MIN/1.7 3 M2 [facility] Comment: Creatinine based estimated glomerular filtration rate (eGFR) is calculated using the Chronic Kidney Disease Epidemiology Collaboration (CKD-EPI). The CKD-EPI creatinine equation has not been validated in children (<18 years), women or in some racial or ethnic subgroups other than Caucasians and Americans. Testing performed or reported by [facility], a Service of [facility], [address] [place] [address] John Muñiz MD, Funding Specialist Blood specimen (specimen) Venous blood / Unknown 08/03/2020 7:46 AM EDT 08/03/2020 7:49 AM EDT us London Boyer MD LAB BLOOD ORDERABLES Final Resul t [facility] * (ABNORMAL) CBC (08/03/2020 7:46 AM EDT) Pathologist [facility] White Blood Cells 6.3 (4.0-11.0) K/MM3 [facility] RBC 3.73(L) (4.20-5.40 ) M/MM3 [facility] Hgb 9.7(L) (11.7-15.5 ) GM/DL [facility] Hematocrit 34.5(L) (35.7-45.8 ) % [facility] MCV 92.5 (80.0-100. 0) FL [facility] MCH 26.0(L) (27.0-34.0 ) PG [facility] MCHC 28.1(L) (33.0-37.0 ) g/dL [facility] Platelets 262 (150-460) K/MM3 [facility] RDW-SD 59.2(H) (<47.0) [place] [facility] MPV 12.1 (9.4-12.4) [place] [facility] nRBC Count 0.3 #/100 WBC'S [facility] NRBC Absolute 0.0 K/MM3 [facility] Comment: Testing performed or reported by [facility], a Service of [facility], [address] [place] [address] John Muñiz MD, Funding Specialist Blood specimen (specimen) Venous blood / Unknown 08/03/2020 7:46 AM EDT 08/03/2020 7:49 AM EDT us London Boyer MD LAB BLOOD ORDERABLES Final Resul t [facility] documented in this encounter Visit Diagnoses Diagnosis Stage 3b chronic kidney disease (HCC) Essential hypertension documented in this encounter Care Teams Operations Advisor Relationship Specialty Start Date End Date Marychuy Ríos MD [address] [place] [address] PCP - General Internal Medicine 11/03/20 documented as of this encounter
--- OUTSIDE RECORDS SUMMARY | 2024-11-03 14:27 | XMS_ITS | Encounter Summary ---
Author Organization [facility] Address [address] [place] [address] Phone Care Team Providers Care Wine Sales Representative Name Role Phone Marychuy Ríos MD Primary Care Provider [phone] Baldomero Roy Primary Care Provider + Reason [...] Expiration Date Visits Re quested Visits Authorized [id number] Closed 11/14/2021 11/14/2022 1 1 Encounter Details Date Type Department Care Team (Late st Contact Info) Description 11/14/2021 Transcribe Orders Virtual Department [address] [place] [address] Marychuy Ríos MD [address] [address] Bruit of right carotid artery (Primary Dx); [...] infarction documented in this encounter Care Teams Wine Sales Representative Relationship Specialty Start Date End Date Marychuy Ríos MD [address] [facility] 202 [place] [address] PCP - General Internal Medicine 11/30/20 06/06/24 Baldomero Roy PA [address] [place] [address] PCP - General Physician Brick Cleaner 06/07/24 documented as of this encounter Additional Source Comments The information contained in this document represents components of the legal health record. It is not the complete legal health record.[facility]
--- OUTSIDE RECORDS SUMMARY | 2024-11-03 14:27 | XMS_ITS | Encounter Summary ---
Author Organization [facility] Address [address] [employer] [facility] [address] [place] [address] Phone Care Team Providers Care Hood Maker Name Role Phone Baldomero Roy Primary Care Provider + Encounter Details Date Type Department Care Team (Late st Contact Info) Description 06/12/2024 Procedure Pass [facility] Endoscopy Admitting Dept Virtual Department [address] [place] [address] Social History Tobacco Use Types Packs/Day Years [...] on filedocumented in this encounter Care Teams Hood Maker Relationship Specialty Start Date End Date Baldomero Roy PA [address] [place] [address] PCP - General Physician Building Wrecker 06/07/24 documented as of this encounter Additional Source Comments The information contained in this document represents components of the legal health record. It is not the complete legal health record.[facility]
--- OUTSIDE RECORDS SUMMARY | 2024-11-03 14:27 | XMS_ITS | Clinical Summary ---
Author Organization [facility] Address [address] [facility] [facility] [address] [place] [address] Phone Care Team Providers Care Technical Producer Name Role Phone Marychuy Ríos MD Primary Care Provider [phone] Allergies Active Allergy Reactions Criticality Noted Date [...] Medicaid [place] Medicare Medicaid [place] Care Teams Technical Producer Relationship Specialty Start Date End Date Marychuy Ríos MD [address] [place] [id number] PCP - General Internal Medicine 11/03/20
== END 2024-11-03 11:37 | disposition home or self-care (01) ==
LOC: HO.HKA 10:53
PROVIDERS: PCP Internal Medicine; Visit Provider Internal Medicine Nephrology
DX: I10 Essential (primary) hypertension (principal); N25.81 Secondary hyperparathyroidism of renal origin; N18.31 Chronic kidney disease, stage 3a; R80.8 Other proteinuria; N18.32 Chronic kidney disease, stage 3b; D63.1 Anemia in chronic kidney disease
CPT/HCPCS: 99214

== ENCOUNTER → 2024-11-03 10:52 | Outpatient (BNVA) | payer OTHER, SELFPAY | PROVIDERS: PCP Internal Medicine; Visit Provider Internal Medicine Nephrology | DX: N18.32 Chronic kidney disease, stage 3b (principal); D63.1 Anemia in chronic kidney disease; I10 Essential (primary) hypertension; R80.8 Other proteinuria; N25.81 Secondary hyperparathyroidism of renal origin | CPT/HCPCS: 96372; 99212; Q5106 ==

== ENCOUNTER 2024-11-14 | Outpatient (REF) | payer OTHER, SELFPAY ==
--- OUTSIDE RECORDS SUMMARY | 2024-10-24 10:12 | XMS_ITS | Encounter Summary ---
Author Organization [facility] Address [address] [facility] [address] [place] [address] Phone Care Team Providers Care Amplifier Mechanic Name Role Phone Marychuy Ríos MD Primary Care Provider [phone] Baldomero Roy Primary Care Provider + Encounter Details Date Type Department Care Team (Late st Contact Info) Description 11/30/2020 Ancillary Orders [facility] Orthopedics & Sports Medicine [address] [place] [address] [place] [address] Alexander Matthew PA [address] [place] [address] [email or web address] Social History Tobacco Use Types [...] on filedocumented in this encounter Care Teams Amplifier Mechanic Relationship Specialty Start Date End Date Marychuy Ríos MD [address] [facility] 202 [place] [address] PCP - General Internal Medicine 11/30/20 06/06/24 Baldomero Roy PA [facility] [place] [address] PCP - General Physician Auto Transmission Technician 06/07/24 documented as of this encounter Additional Source Comments The information contained in this document represents components of the legal health record. It is not the complete legal health record.[facility]
--- OUTSIDE RECORDS SUMMARY | 2024-10-24 10:12 | XMS_ITS | Clinical Summary ---
Author Organization [employer] Address [address] [facility] 7t [place] [address] Care Team Providers Care Want Ad Receiver Name Role Phone Unavailable Primary Care [...] Screening 10/18/2023 10/17/2022 COVID-19 Vaccine ( season) 2024 03/22/2022, 02/24/2021, 06/02/2020, Additional history exists Influenza [...]
--- OUTSIDE RECORDS SUMMARY | 2024-10-24 10:12 | XMS_ITS | Encounter Summary ---
Author Organization [facility] Address [address] [facility] [address] [place] [address] Phone Care Team Providers Care Newsagent Name Role Phone Marychuy Ríos MD Primary Care Provider [phone] Baldomero Roy Primary Care Provider + Encounter Details Date Type Department Care Team (Late st Contact Info) Description 11/30/2020 Ancillary Orders [facility] Orthopedics & Sports Medicine [address] [place] [address] [place] [address] Alexander Matthew PA 6 [place] [address] [email or web address] Social History Tobacco Use Types Packs/Day Years [...] on filedocumented in this encounter Care Teams Newsagent Relationship Specialty Start Date End Date Marychuy Ríos MD [address] [facility] 202 [place] [address] PCP - General Internal Medicine 11/30/20 06/06/24 Baldomero Roy PA [facility] [place] [address] PCP - General Physician Manager Administrative 06/07/24 documented as of this encounter Additional Source Comments The information contained in this document represents components of the legal health record. It is not the complete legal health record.[facility]
--- OUTSIDE RECORDS SUMMARY | 2024-10-24 10:12 | XMS_ITS | Encounter Summary ---
Author Organization [facility] Address [address] [place] [address] Phone Care Team Providers Care Design Tech Name Role Phone Baldomero Roy Primary Care Provider + Encounter Details Date Type Department Care Team (Late st Contact Info) Description 06/08/2024 Procedure Pass [facility] 30 [place] [address] Social History Tobacco Use Types Packs/Day Years [...] on filedocumented in this encounter Care Teams Design Tech Relationship Specialty Start Date End Date Baldomero Roy PA [address] [place] [address] PCP - General Physician Pediatric Nephrologist 06/07/24 documented as of this encounter Additional Source Comments The information contained in this document represents components of the legal health record. It is not the complete legal health record.[facility]
--- OUTSIDE RECORDS SUMMARY | 2024-10-24 10:12 | XMS_ITS | Clinical Summary ---
Author Organization [facility] Address [address] [place] [address] Phone Care Team Providers Care Body Shop Technician Name Role Phone Marychuy Ríos MD Primary Care Provider [phone] Allergies Active Allergy Reactions Criticality Noted Date [...] Medicaid [place] Medicare Medicaid [place] Care Teams Body Shop Technician Relationship Specialty Start Date End Date Marychuy Ríos MD [address] [place] [id number] PCP - General Internal Medicine 11/03/20
--- OUTSIDE RECORDS SUMMARY | 2024-10-24 10:12 | XMS_ITS | Encounter Summary ---
Author Organization [facility] Address [address] [place] [address] Phone Care Team Providers Care Rail Car Driver Name Role Phone Marychuy Ríos MD Primary Care Provider [phone] Baldomero Roy Primary Care Provider + Reason [...] Expiration Date Visits Re quested Visits Authorized [id number] Closed 11/14/2021 11/14/2022 1 1 Encounter Details Date Type Department Care Team (Late st Contact Info) Description 11/14/2021 Transcribe Orders Virtual Department 30 [place] [address] Marychuy Ríos MD [address] [address] Bruit of right carotid artery (Primary Dx); [...] infarction documented in this encounter Care Teams Rail Car Driver Relationship Specialty Start Date End Date Marychuy Ríos MD [address] [facility] 202 [place] [address] PCP - General Internal Medicine 11/30/20 06/06/24 Baldomero Roy PA [address] [place] [address] PCP - General Physician Application Performance Engineer 06/07/24 documented as of this encounter Additional Source Comments The information contained in this document represents components of the legal health record. It is not the complete legal health record.[facility]
--- OUTSIDE RECORDS SUMMARY | 2024-10-24 10:12 | XMS_ITS | Encounter Summary ---
Author Organization [facility] Address [address] [facility] 7t [place] [address] Care Team Providers Care Software Team Leader Name Role Phone Unavailable Primary Care Provider [...]
--- OUTSIDE RECORDS SUMMARY | 2024-10-24 10:12 | XMS_ITS | Encounter Summary ---
Author Organization [facility] Address [address] [facility] [address] [place] [address] Phone Care Team Providers Care Nanny Babysitter Name Role Phone Baldomero Roy Primary Care Provider + Encounter Details Date Type Department Care Team (Late st Contact Info) Description 06/12/2024 Procedure Pass [facility] Endoscopy Admitting Dept Virtual Department 30 [place] [address] Social History Tobacco Use Types Packs/Day Years [...] on filedocumented in this encounter Care Teams Nanny Babysitter Relationship Specialty Start Date End Date Baldomero Roy PA [address] [place] [address] PCP - General Physician Hospital Personnel Director 06/07/24 documented as of this encounter Additional Source Comments The information contained in this document represents components of the legal health record. It is not the complete legal health record.[facility]
--- OUTSIDE RECORDS SUMMARY | 2024-10-24 10:12 | XMS_ITS | Encounter Summary ---
Author Organization [employer] [facility] Address [address] [facility] 7t [place] [address] Care Team Providers Care Application Packaging Specialist Name Role Phone Unavailable Primary Care [...]
--- OUTSIDE RECORDS SUMMARY | 2024-10-24 10:12 | XMS_ITS | Encounter Summary ---
Author Organization [facility] Address [address] [place] [address] Phone Care Team Providers Care Nursing Aide Name Role Phone Marychuy Ríos MD Primary Care Provider [phone] Encounter Details Date Type Department Care Team (Late st Contact Info) Description 09/01/2020 Orders Only [facility] [address] [place] [address] London Boyer MD Stage 3b chronic [...] 7:46 AM EDT) Glucose 113(H) (70-99) MG/DL [facility] BUN 42(H) (8-23) MG/DL [facility] Creatinine 2.0(H) (0.5-1.0) MG/DL [facility] Sodium 141 (133-145) MMOL/L [facility] Potassium 5.1 (3.6-5.2) MMOL/L [facility] Chloride 106 (98-107) MMOL/L [facility] Bicarbonate (CO2) 23 (22-29) MMOL/L [facility] Anion Gap 12 (4-17) [facility] Albumin 4.2 (3.4-4.8) GM/DL [facility] Calcium 9.5 (8.6-10.5) MG/DL [facility] Phosphorus, Serum 3.8 (2.5-4.5) MG/DL [facility] Est GFR Non 25 ML/MIN/1.7 3 M2 [facility] Comment: Creatinine based estimated glomerular filtration rate (eGFR) is calculated using the Chronic Kidney Disease Epidemiology Collaboration (CKD-EPI). The CKD-EPI creatinine equation has not been validated in children (<18 years), women or in some racial or ethnic subgroups other than Caucasians and Americans. EST GFR 29 ML/MIN/1.7 3 M2 [facility] Comment: Creatinine based estimated glomerular filtration rate (eGFR) is calculated using the Chronic Kidney Disease Epidemiology Collaboration (CKD-EPI). The CKD-EPI creatinine equation has not been validated in children (<18 years), women or in some racial or ethnic subgroups other than Caucasians and Americans. Testing performed or reported by [facility], a Service of [facility], [address] [place] [address] John Muñiz MD, Caltrans Equipment Operator Blood specimen (specimen) Venous blood / Unknown 08/03/2020 7:46 AM EDT 08/03/2020 7:49 AM EDT us London Boyer MD LAB BLOOD ORDERABLES Final Resul t [facility] * (ABNORMAL) CBC (08/03/2020 7:46 AM EDT) Pathologist [facility] White Blood Cells 6.3 (4.0-11.0) K/MM3 [facility] RBC 3.73(L) (4.20-5.40 ) M/MM3 [facility] Hgb 9.7(L) (11.7-15.5 ) GM/DL [facility] Hematocrit 34.5(L) (35.7-45.8 ) % [facility] MCV 92.5 (80.0-100. 0) FL [facility] MCH 26.0(L) (27.0-34.0 ) PG [facility] MCHC 28.1(L) (33.0-37.0 ) g/dL [facility] Platelets 262 (150-460) K/MM3 [facility] RDW-SD 59.2(H) (<47.0) FL [facility] MPV 12.1 (9.4-12.4) FL [facility] nRBC Count 0.3 #/100 WBC'S [facility] NRBC Absolute 0.0 K/MM3 [facility] Comment: Testing performed or reported by [facility], a Service of [facility], [address] [place] [address] John Muñiz MD, Caltrans Equipment Operator Blood specimen (specimen) Venous blood / Unknown 08/03/2020 7:46 AM EDT 08/03/2020 7:49 AM EDT us London Boyer MD LAB BLOOD ORDERABLES Final Resul t [facility] documented in this encounter Visit Diagnoses Diagnosis Stage 3b chronic kidney disease (HCC) Essential hypertension documented in this encounter Care Teams Nursing Aide Relationship Specialty Start Date End Date Marychuy Ríos MD [address] [place] [address] PCP - General Internal Medicine 11/03/20 documented as of this encounter
--- OUTSIDE RECORDS SUMMARY | 2024-10-24 10:12 | XMS_ITS | Encounter Summary ---
Author Organization [facility] Address [facility] [address] [place] [address] Phone Care Team Providers Care Talend Developer Name Role Phone Marychuy Ríos MD Primary Care Provider Baldomero Roy Primary Care Provider + Encounter Details Date Type Department Care Team (Late st Contact Info) Description 12/13/2022 Ancillary Orders [facility] Medical [facility] Orthopedics & Sports Medicine [address] [place] [address] Raphael Graf MD [address] [place] [address] Orthopedics & Sports Medicine, [place] [address] [email or web address] Pain Social History Tobacco Use Types [...] of the lateral joint space with probable hxpd-zy-djsx contact. Also on the right is arterial [...] narrowing ofthe lateral joint space with probable eace-al-bosc contact. Also on theright is arterial vascular [...] pain documented in this encounter Care Teams Talend Developer Relationship Specialty Start Date End Date Marychuy Ríos MD [address] [facility] 202 [place] [address] PCP - General Internal Medicine 11/30/20 06/06/24 Baldomero Roy PA [address] [place] [address] PCP - General Physician Recovery Coordinator 06/07/24 documented as of this encounter Additional Source Comments The information contained in this document represents components of the legal health record. It is not the complete legal health record.[facility]
--- OUTSIDE RECORDS SUMMARY | 2024-12-01 10:49 | XMS_ITS | Encounter Summary ---
Author Organization [facility] Address [address] [employer] [facility] [address] [place] [address] Phone Care Team Providers Care Outsole Caser Name Role Phone Baldomero Roy Primary Care Provider + Encounter Details Date Type Department Care Team (Late st Contact Info) Description 06/12/2024 Procedure Pass [facility] Endoscopy Admitting Dept Virtual Department 30 [place] [address] Social History Tobacco Use Types Packs/Day Years [...] on filedocumented in this encounter Care Teams Outsole Caser Relationship Specialty Start Date End Date Baldomero Roy PA [address] [place] [address] PCP - General Physician Manager Product Support 06/07/24 documented as of this encounter Additional Source Comments The information contained in this document represents components of the legal health record. It is not the complete legal health record.[facility]
--- OUTSIDE RECORDS SUMMARY | 2024-12-01 10:49 | XMS_ITS | Clinical Summary ---
Author Organization [facility] Address [address] [address] Phone Care Team Providers Care Aircraft Cleaner Name Role Phone Baldomero Roy Primary Care [...] 200 mg magnesium Chew Activ e ascorbic evhz-oluftqes-k in (VITAMIN C ENERGY BOOSTER) 1,000 mg [...] knee 06/07/2024 Acute hypoxic respiratory failure 06/07/2024 Social History Tobacco Use Types Packs/Day Years [...] FOBT 01/02/1996 SIGMOIDOSCOPY 01/02/1996 VIRTUAL COLONOSCOPY 01/02/1996 RSV VACCINE (1 - Risk 50-74 years 1-dose series) 2001 ZOSTER VACCINES (1 of 2) 2001 OSTEOPOROSIS SCREENING INITIAL (ONE-TIME) 01/02/2016 BLOOD PRESSURE 05/16/2023 11/15/2022 DIABETIC EYE EXAM 06/12/2024 INFLUENZA VACCINE (#1) 2024 COVID-19 VACCINE ( season) 2024 03/22/2022, 02/24/2021, 06/02/2020, Additional [...] Yen MD - 06/12/2024 7:48 AM EDT [facility] Patient Name: Yecenia Gaines Attending MD:: SIXTO YEN MD, Procedure Date: 06/12/2024 7:48 AM Date of : 1950 Age: 74 Admit Type: Inpatient Gender: Female Room: [place] [address] Referring MD: Baldomero Roy Exam Type: Colonoscopy [...] bowel preparation was evaluated using the BBPS ([place] Bowel Preparation Scale) with scores of:Right Colon [...] white for ongoingcare. - Outpatient f/u with [facility]. SIXTO YEN MD 06/12/2024 8:13:01 AM This report has been signed electronically. Number of Addenda: 0 Note Initiated On: 06/12/2024 7:48 AM Procedure Code(s): --- Professional --- 95136, Colonoscopy, flexible; diagnostic, including collection of specimen(s) by brushing or washing, when performed (separateprocedure) --- Technical --- 76273, Colonoscopy, flexible; diagnostic, including collection of specimen(s) by brushing or washing, when performed (separateprocedure) Diagnosis Code(s): --- Professional --- D50.9, Iron deficiency anemia, unspecified K57.30, Diverticulosis of large intestine without perforation or abscess without bleeding --- Technical --- D50.9, Iron deficiency anemia, unspecified K57.30, Diverticulosis of large intestine without perforation or abscess without bleeding CPT copyright 2021 [employer]. All rights reserved. The codes documented in this report are preliminary and upon senior coldfusion developer reviewmay be revised to meet current compliance requirements. Procedure Date: 06/12/2024 7:48:[address] [place] [address] us Baldomero AGUIRRE GI PROCEDURE ORDERABLES Final Result * (ABNORMAL) Basic metabolic panel (06/12/2024 5:14 AM EDT) SODIUM 140 133 - 146 mmol/L [facility] CHLORIDE 98 96 - 108 mmol/L [facility] POTASSIUM 3.5 3.3 - 5.1 mmol/L [facility] CO2 31 21 - 35 mmol/L [facility] BUN 31(H) 6 - 19 mg/dL [facility] CREATININE 2.30(H) 0.5 - 1.5 mg/dL [facility] GLUCOSE 104(H) 70 - 99 mg/dL [facility] CALCIUM 8.8 8.4 - 10.3 mg/dL [facility] EGFR 22(L) >59 mL/min/1.7 3m2 [facility] Comment:Estimated glomerular filtration rate calculated using the CKD-EPI refit equation. ANION GAP 15 10 - 20 mmol/L [facility] Blood 06/12/2024 5:14 AM EDT 06/12/2024 5:39 AM EDT us Pranay Rizo MD LAB BLOOD ORDERABLES Final R esult [facility] [address] [place] [address] from Last 3 Months or Most Recently Relevant to Health Maintenance Insurance MEDICARE PART A & B [facility] MEDICARE PART A & B [place] & B HEALTH MEDICARE PART A & [place] & B [facility]IC[facility] PART A & [facility] PART A & B [facility] Advance Directives For more information, please contact: [phone] (9AM - 5PM [facility], Sunday-Sunday) Documents on File Type Date Recorded Patient Health Concierge Expl anation Healthcare Proxy 06/13/2024 3:02 PM Healthcare Proxy 06/12/2024 5:49 PM Health Care Proxy * Full Code (Latest Code Status on File) Date Activated Date Inactivated Comments 06/07/2024 9:14 PM Question Answer Comments Code Status Confirmed With: Patient Healthcare Agents on File Name Relationship Healthcare Agent [facility] Communication Sree Goldberg Friend .Primary Health Care Agent (Proxy form on file) Care Teams Aircraft Cleaner Relationship Specialty Start Date End Date Baldomero Roy PA [address] [place] [address] PCP - General Physician Personnel And Payroll Technician 06/07/24 Additional Source Comments The information contained in this document represents components of the legal health record. It is not the complete legal health record.[facility]
--- OUTSIDE RECORDS SUMMARY | 2024-12-01 10:49 | XMS_ITS | Encounter Summary ---
Author Organization [facility] Address [facility] [employer] [facility] [address] [place] [address] Phone Care Team Providers Care Indirect Sales Representative Name Role Phone Marychuy Ríos MD Primary Care Provider Baldomero Roy Primary Care Provider + Encounter Details Date Type Department Care Team (Late st Contact Info) Description 12/13/2022 Ancillary Orders [facility] Medical [facility] Orthopedics & Sports Medicine [address] [place] [address] Raphael Graf MD [address] [place] [address] Orthopedics & Sports Medicine, [facility] [place] [address] [email or web address] Pain Social History Tobacco Use Types Packs/Day [...] of the lateral joint space with probable qjyr-pd-xlfp contact. Also on the right is arterial [...] narrowing ofthe lateral joint space with probable fhni-em-quzo contact. Also on theright is arterial vascular [...] pain documented in this encounter Care Teams Indirect Sales Representative Relationship Specialty Start Date End Date Marychuy Ríos MD [address] [facility] [address] [place] [address] PCP - General Internal Medicine 11/30/20 06/06/24 Baldomero Roy PA [address] [place] [address] PCP - General Physician Rock Crushing Machine Operator 06/07/24 documented as of this encounter Additional Source Comments The information contained in this document represents components of the legal health record. It is not the complete legal health record.[facility]
--- OUTSIDE RECORDS SUMMARY | 2024-12-01 10:49 | XMS_ITS | Encounter Summary ---
Author Organization [facility] Address [address] [place] [address] Phone Care Team Providers Care Director Project Management Name Role Phone Baldomero Roy Primary Care Provider + Encounter Details Date Type Department Care Team (Late st Contact Info) Description 06/08/2024 Procedure Pass [facility] [address] [place] [address] Social History Tobacco Use Types Packs/Day Years [...] on filedocumented in this encounter Care Teams Director Project Management Relationship Specialty Start Date End Date Baldomero Roy PA [address] [place] [address] PCP - General Physician Senior Applications Architect 06/07/24 documented as of this encounter Additional Source Comments The information contained in this document represents components of the legal health record. It is not the complete legal health record.[facility]
--- OUTSIDE RECORDS SUMMARY | 2024-12-01 10:49 | XMS_ITS | Encounter Summary ---
Author Organization [facility] Address [address] [facility] 7t [place] [address] Care Team Providers Care Picking Supervisor Name Role Phone Unavailable Primary Care Provider [...]
--- OUTSIDE RECORDS SUMMARY | 2024-12-01 10:49 | XMS_ITS | Clinical Summary ---
Author Organization [employer] Address [address] [facility] 7t [place] [address] Care Team Providers Care Gauge And Weigh Machine Adjuster Name Role Phone Unavailable Primary Care Provider [...]
--- OUTSIDE RECORDS SUMMARY | 2024-12-01 10:49 | XMS_ITS | Encounter Summary ---
Author Organization [facility] Address [address] [facility] [address] [place] [address] Phone Care Team Providers Care Screen Operator Name Role Phone Marychuy Ríos MD Primary Care Provider +1- [phone] Baldomero Roy Primary Care Provider + Encounter Details Date Type Department Care Team (Late st Contact Info) Description 11/30/2020 Ancillary Orders [facility] Medicine [address] [place] [address] [place] [address] Alexander Matthew PA [address] [place] [address] [email or web address] Social History Tobacco Use Types Packs/Day Years [...] on filedocumented in this encounter Care Teams Screen Operator Relationship Specialty Start Date End Date Marychuy Ríos MD [address] [facility] 202 [place] [address] PCP - General Internal Medicine 11/30/20 06/06/24 Baldomero Roy PA [facility]1 [place] [address] PCP - General Physician Legal Support Specialist 06/07/24 documented as of this encounter Additional Source Comments The information contained in this document represents components of the legal health record. It is not the complete legal health record.[facility]
--- OUTSIDE RECORDS SUMMARY | 2024-12-01 10:49 | XMS_ITS | Encounter Summary ---
Author Organization [facility] Address [address] [facility] 7t [place] [address] Care Team Providers Care Finished Garment Inspector Name Role Phone Unavailable Primary Care [...]
--- OUTSIDE RECORDS SUMMARY | 2024-12-01 10:49 | XMS_ITS | Encounter Summary ---
Author Organization [facility] Address [address] [place] [address] Phone Care Team Providers Care Technology Solutions Architect Name Role Phone Marychuy Ríos MD Primary Care Provider +1- [phone] Baldomero Roy Primary Care Provider + Reason [...] Expiration Date Visits Re quested Visits Authorized [id number] Closed 11/14/2021 11/14/2022 1 1 Encounter Details Date Type Department Care Team (Late st Contact Info) Description 11/14/2021 Transcribe Orders Virtual Department 30 [place] [address] Marychuy Ríos MD [address] [address] Bruit of right carotid artery (Primary Dx); [...] infarction documented in this encounter Care Teams Technology Solutions Architect Relationship Specialty Start Date End Date Marychuy Ríos MD [address] [facility] 202 [place] [address] PCP - General Internal Medicine 11/30/20 06/06/24 Baldomero Roy PA [address] [place] [address] PCP - General Physician Player Manager 06/07/24 documented as of this encounter Additional Source Comments The information contained in this document represents components of the legal health record. It is not the complete legal health record.[facility]
--- OUTSIDE RECORDS SUMMARY | 2024-12-01 10:49 | XMS_ITS | Encounter Summary ---
Author Organization [facility] Address [address] [place] [employer] [facility] [address] [place] [address] Phone Care Team Providers Care Clearing Hand Name Role Phone Marychuy Ríos MD Primary Care Provider +1- [phone] Baldmoero Roy Primary Care Provider + Encounter Details Date Type Department Care Team (Late st Contact Info) Description 11/30/2020 Ancillary Orders [facility] Orthopedics & Sports Medicine [address] [place] [address] [place] [address] Alexander Matthew PA 6 [place] [address] [email or web address] Social History Tobacco Use [...] on filedocumented in this encounter Care Teams Clearing Hand Relationship Specialty Start Date End Date Marychuy Ríos MD [address] [facility] 202 [place] [address] PCP - General Internal Medicine 11/30/20 06/06/24 Baldomero Roy PA [facility] [place] [address] PCP - General Physician Lockstitch Coat Joiner 06/07/24 documented as of this encounter Additional Source Comments The information contained in this document represents components of the legal health record. It is not the complete legal health record.[facility]
== END 2024-11-14 00:01 | disposition home or self-care (01) ==
LOC: CF
PROVIDERS: PCP Internal Medicine; Visit Provider Surgery Vascular Surgery
DX: I83.11 Varicose veins of right lower extremity with inflammation (principal); I89.0 Lymphedema, not elsewhere classified; D64.9 Anemia, unspecified
CPT/HCPCS: 99212

== ENCOUNTER 2024-12-03 11:36 | Outpatient (REF) | payer OTHER, SELFPAY ==
[2024-12-03 12:03] LABS: MANUAL DIFF FLAG NO
[2024-12-03 12:11] LABS: Hematocrit 34.1 % (37.0-47.0); Hemoglobin 9.9 g/dl (12.0-16.0); Imm Gran Abs Auto 0.04 X10*3/uL (0.00-0.03); Imm Gran Pct Auto 0.5 % (0.0-0.4); Lymphocytes Absolute Auto 0.9 X10*3/uL (1.2-4.9); Mean Corpuscular HGB Conc 29.0 g/dl (31.0-35.0); Mean Corpuscular Hemoglobin 27.8 pg (27.0-33.0); Mean Corpuscular Volume 95.8 fL (80.0-98.0); NRBC Abs Auto 0.000 X10*3/uL (0.0-0.012); NRBC Pct Auto 0.0 /100WBC (0.0-0.2); Platelet Count 245 X10*3/uL (160-400); Red Blood Count 3.56 X10*6/uL (4.20-5.50); White Blood Count 7.4 X10*3/uL (4.8-10.8)
[2024-12-03 12:40] LABS: Anion Gap 15 (12-20); Blood Urea Nitrogen 48 mg/dL (9-16); Calcium 9.2 mg/dL (8.4-10.2); Carbon Dioxide 24 mmol/L (22-29); Chloride 110 mmol/L (96-108); Estimated Glomerular Filt Rate 16; Potassium 4.7 mmol/L (3.3-5.1); Sodium 144 mmol/L (135-145)
== END 2024-12-03 11:37 | disposition home or self-care (01) ==
LOC: HO.LAB 11:36
PROVIDERS: Visit Provider Internal Medicine Nephrology
DX: I12.9 Hypertensive chronic kidney disease with stage 1 through stage 4 chronic kidney disease, or unspecified chronic kidney disease (principal); N18.32 Chronic kidney disease, stage 3b; D63.1 Anemia in chronic kidney disease; N25.81 Secondary hyperparathyroidism of renal origin; R80.8 Other proteinuria; Z79.899 Other long term (current) drug therapy
CPT/HCPCS: 36415; 80051; 82310; 82565; 84100; 84520; 85025; 96372; 99212; Q5106

== ENCOUNTER 2024-12-03 14:52 | Outpatient (AMB) | payer OTHER, SELFPAY ==
--- NOTE | 2024-12-03 15:15 | HO.NEPHOV_ITS ---
Vital Signs 12/03/24 15:17 Height 5 ft 8 in Weight 172 lb 4 oz BMI 26.2 BP 150/90 H Blood Pressure Location Rt brachial Position Sitting Pulse 79 Pulse Source Pulse Oximeter Pulse Oximetry (%) 98 Oxygen Delivery Method Room Air Intake Visit Reasons: 4wk w labs-Conf Director Public Policy Required: No Accompanied by: Self / Same As Patient Allergies lisinopril Allergy (Severe, Verified 12/03/24 15:16) Unknown codeine Allergy (Intermediate, Verified 12/03/24 15:16) Nausea latex Allergy (Intermediate, Verified 12/03/24 15:16) Rash hydrochlorothiazide Allergy (Unknown, Verified 12/03/24 15:16) Unknown morphine Allergy (Unknown, Verified 12/03/24 15:16) Nausea SHAYY Inhibitors Adverse Reaction (Unknown, Verified 12/03/24 15:16) Unknown HPI Comments Details: Yecenia is a 74-year-old female with a PMH significant for?CAD s/p stenting 2018, hx of DVT with pulmonary embolism 2017 on Eliquis, HTN, HLD, CKD 3, chronic anemia requiring transfusions in the past, diet-controlled diabetes type 2, osteoarthritis, and chronic lower leg edema was seen for F/U today. She has been needing PRBC transfusions- she has had a colonoscopy at [facility] and an upper endoscopy and sigmoidoscopy at [facility] on 08/19/24 while in the hospital- no source of bleeding found, capsule study findings pending per most recent GI notes. Patient also expressed her frustration about ongoing right knee and leg pain and swelling afternoon undergoing intra-articular steroids. She was seen by orthopedic service and pain management as an outpatient. Unfortunately, Yecenia's mother , she states she is doing ok, grieving. She denies shortness of breath, chest pain, orthopnea or urinary symptoms. [facility] Medical History Graves disease CAD (coronary artery disease) Osteoarthritis Hx of transfusion of packed red blood cells Diet-controlled diabetes mellitus Pulmonary embolism DVT (deep venous thrombosis) Anemia in chronic kidney disease Hypertension CKD (chronic kidney disease) stage 3, GFR 30-59 ml/min Surgical History Hx of heart artery stent History of partial hysterectomy Family History Maternal Grandfather Stomach cancer Social History Household Members: None Housing: Apartment Do you presently have visiting nurse or other home services: No Alcohol intake: never Patient Tobacco Use Status: Former Tobacco user Tobacco use type: Cigarette e-Cigarette/Vaping Use: Never Used service: No Current occupational status: retired Cognitive needs: No Hearing needs: Yes Vision needs: No Review of Systems Const All systems reviewed & are unremarkable except as noted in HPI and below Physical Exam Vital Signs: Last Vital Signs Pulse 79 12/03/24 15:17 BP 150/90 H 12/03/24 15:17 Pulse Ox 98 12/03/24 15:17 Oxygen Delivery Method Room Air 12/03/24 15:17 BMI result Body Mass Index 26.2 Const General: comfortable and no acute distress Orientation/consciousness: patient oriented x3 HEENT Head: Yes normocephalic Mouth: Normal oral and palatal mucosa present Eyes EOM: EOMs intact bilaterally Neck Neck: Yes supple Resp Auscultation: clear to auscultation bilaterally Cardio Jugular venous distension: no JVD Rate: regular rate GI Palpation (GI): Soft to palpation Auscultation: normal bowel sounds General: Yes no CVA tenderness Back/Spine/Pelvis Back: no CVA tenderness Skin General skin exam: no rashes or lesions noted Neuro General: patient oriented x3 and moves all extremities Office Meds epoetin walt-epbx 10,000 unit/mL injection solution Performing Provider: London Boyer MD Performing Location: [facility] Administered by: London Boyer MD on 12/03/24 15:36 Dose Route Admin Location Dispensed Lot Number Expiration Date [facility] Learning Solutions Specialist 20,000 unit subcut RUE 2 mL [id number] 03/22/26 [id number] [employer] Total Dispensed Waste 2 mL 0 % Results Reviewed Nephrology Results: Hgb, (12.0-16.0) 9.9 g/dl L Today WBC, (4.8-10.8) 7.4 X10*3/uL Today Plt Count, (160-400) 245 X10*3/uL Today Sodium, (135-145) 144 mmol/L Today Potassium, (3.3-5.1) 4.7 mmol/L Today Chloride, (96-108) 110 mmol/L H Today Carbon Dioxide, (22-29) 24 mmol/L Today BUN, (9-16) 48 mg/dL H Today Creatinine, (0.5-1.4) 2.89 mg/dL H Today Calcium, (8.4-10.2) 9.2 mg/dL Today Phosphorus, (2.7-4.5) 4.5 mg/dL Today PTH Intact, (8.7-77.1) 322.1 pg/mL H 10/29/24 Assessment & Plan Assessment & Plan (1) Anemia in chronic kidney disease: Code(s): N18.9 - Chronic kidney disease, unspecified; D63.1 - Anemia in chronic kidney disease Category: Medical Qualifiers: Chronic kidney disease stage: stage 3 (moderate) Chronic kidney disease stage 3 subtype: stage 3b (GFR 30-44) Qualified Code(s): N18.32 - Chronic kidney disease, stage 3b; D63.1 - Anemia in chronic kidney disease (2) CKD (chronic kidney disease) stage 3, GFR 30-59 ml/min: Code(s): N18.30 - Chronic kidney disease, stage 3 unspecified Category: Medical Qualifiers: Chronic kidney disease stage 3 subtype: stage 3a (GFR 45-59) Qualified Code(s): N18.31 - Chronic kidney disease, stage 3a (3) Hypertension: Code(s): I10 - Essential (primary) hypertension Category: Medical Qualifiers: Hypertension type: primary hypertension Qualified Code(s): I10 - Essential (primary) hypertension Plan Yecenia has chronic kidney disease and longstanding hypertension. 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 She is known to have coronary artery disease and has undergone angioplasty and stenting. She had an upper endoscopy, colonoscopy and sigmoidoscopy. She has seen GI and has a F/U. Her edema is better. She can continue lasix 40mg daily. I administered Procrit 20 K Units in the office today. She had a Hematology consult. She is due to have a bone marrow biopsy ( needs to R/O sickle cell trait/ hypoplastic marrow/ anti EPO antibody ). She needs to maintain low-sodium & K diet. Follow up blood work ordered. Answered all questions. Orders: Orders AMB Epoetin Injection Practice Supplied Today D63.1 - Anemia in chronic kidney disease, N18.32 - Chronic kidney disease, stage 3b Complete Blood Count Auto Diff 1 Month D63.1 - Anemia in chronic kidney disease, I10 - Essential (primary) hypertension, N18.31 - Chronic kidney disease, stage 3a, N18.32 - Chronic kidney disease, stage 3b Electrolytes 1 Month D63.1 - Anemia in chronic kidney disease, I10 - Essential (primary) hypertension, N18.31 - Chronic kidney disease, stage 3a, N18.32 - Chronic kidney disease, stage 3b Blood Urea Nitrogen 1 Month D63.1 - Anemia in chronic kidney disease, I10 - Essential (primary) hypertension, N18.31 - Chronic kidney disease, stage 3a, N18.32 - Chronic kidney disease, stage 3b Creatinine 1 Month D63.1 - Anemia in chronic kidney disease, I10 - Essential (primary) hypertension, N18.31 - Chronic kidney disease, stage 3a, N18.32 - Chronic kidney disease, stage 3b Ferritin 1 Month D63.1 - Anemia in chronic kidney disease, I10 - Essential (primary) hypertension, N18.31 - Chronic kidney disease, stage 3a, N18.32 - Chronic kidney disease, stage 3b IRON PROFILE 1 Month D63.1 - Anemia in chronic kidney disease, I10 - Essential (primary) hypertension, N18.31 - Chronic kidney disease, stage 3a, N18.32 - Chronic kidney disease, stage 3b Calcium 1 Month D63.1 - Anemia in chronic kidney disease, I10 - Essential (primary) hypertension, N18.31 - Chronic kidney disease, stage 3a, N18.32 - Chronic kidney disease, stage 3b Medications: Changed From furosemide 20 mg See Protocol PO BID 0 tabs 0RF To furosemide 40 mg PO DAILY 90 tabs 3RF Discontinued amlodipine Discontinued Reason: Doctor's Order 5 mg See Protocol PO BID 90 tabs 0RF Coding Level of Care Code Est Pt Level 4 (34215) Diagnoses Anemia in stage 3b chronic kidney disease N18.32; D63.1 Chronic kidney disease stage: stage 3 (moderate) Chronic kidney disease stage 3 subtype: stage 3b (GFR 30-44) Stage 3a chronic kidney disease N18.31 Chronic kidney disease stage 3 subtype: stage 3a (GFR 45-59) Primary hypertension I10 Hypertension type: primary hypertension
[2024-12-03 15:17] VITALS: BP 150/90; PULSE 79; O2SAT 98; BMI 26.2
--- OUTSIDE RECORDS SUMMARY | 2024-12-03 18:36 | XMS_ITS | Encounter Summary ---
Author Organization [facility] Address [address] [place] [address] Phone Care Team Providers Care Blunger Machine Operator Name Role Phone Baldomero Roy Primary Care Provider + Encounter Details Date Type Department Care Team (Late st Contact Info) Description 06/08/2024 Procedure Pass [facility] 30 [place] [address] Social History Tobacco Use Types Packs/Day Years [...] on filedocumented in this encounter Care Teams Blunger Machine Operator Relationship Specialty Start Date End Date Baldomero Roy PA [address] [place] [address] PCP - General Physician General Maintenance Technician 06/07/24 documented as of this encounter Additional Source Comments The information contained in this document represents components of the legal health record. It is not the complete legal health record.[facility]
--- OUTSIDE RECORDS SUMMARY | 2024-12-03 18:36 | XMS_ITS | Encounter Summary ---
Author Organization [facility] Address [address] [place] [address] Phone Care Team Providers Care Brush Filler Hand Name Role Phone Marychuy Ríos MD Primary Care Provider [phone]- [phone] Baldomero Roy Primary Care Provider + Reason [...] Expiration Date Visits Re quested Visits Authorized [id number] Closed 11/14/2021 11/14/2022 1 1 Encounter Details Date Type Department Care Team (Late st Contact Info) Description 11/14/2021 Transcribe Orders Virtual Department 30 [place] [address] Marychuy Ríos MD [address] [address] Bruit of right carotid artery (Primary Dx); [...] infarction documented in this encounter Care Teams Brush Filler Hand Relationship Specialty Start Date End Date Marychuy Ríos MD [address] [facility] 202 [place] [address] PCP - General Internal Medicine 11/30/20 06/06/24 Baldomero Roy PA [address] [place] [address] PCP - General Physician Human Resources Recruiter 06/07/24 documented as of this encounter Additional Source Comments The information contained in this document represents components of the legal health record. It is not the complete legal health record.[facility]
--- OUTSIDE RECORDS SUMMARY | 2024-12-03 18:36 | XMS_ITS | Encounter Summary ---
Author Organization [facility] Address [address] [employer] [facility] [address] [place] [address] Phone Care Team Providers Care Cathode Ray Tube Assembler Name Role Phone Baldomero Roy Primary Care Provider + Encounter Details Date Type Department Care Team (Late st Contact Info) Description 06/12/2024 Procedure Pass [facility] Endoscopy Admitting Dept Virtual Department 30 [place] [address] Social History Tobacco Use Types Packs/Day Years [...] on filedocumented in this encounter Care Teams Cathode Ray Tube Assembler Relationship Specialty Start Date End Date Baldomero Roy PA [address] [place] [address] PCP - General Physician Farm Machine Operator 06/07/24 documented as of this encounter Additional Source Comments The information contained in this document represents components of the legal health record. It is not the complete legal health record.[facility]
--- OUTSIDE RECORDS SUMMARY | 2024-12-03 18:36 | XMS_ITS | Encounter Summary ---
Author Organization [facility] Address [address] [employer] [facility] [address] [place] [address] Phone Care Team Providers Care Receiving Tank Operator Name Role Phone Marychuy Ríos MD Primary Care Provider +1- [phone] Baldomreo Roy Primary Care Provider + Encounter Details Date Type Department Care Team (Late st Contact Info) Description 11/30/2020 Ancillary Orders [facility] Orthopedics & Sports Medicine [address] [place] [address] [place] [address] Alexander Matthew PA 6 [place] [address] [email or web address] Social History Tobacco Use Types Packs/Day Years [...] on filedocumented in this encounter Care Teams Receiving Tank Operator Relationship Specialty Start Date End Date Marychuy Ríos MD [address] [facility] 202 [place] [address] PCP - General Internal Medicine 11/30/20 06/06/24 Baldomero Roy PA [facility]1 [place] [address] PCP - General Physician Machine Shop Specialist 06/07/24 documented as of this encounter Additional Source Comments The information contained in this document represents components of the legal health record. It is not the complete legal health record.[facility]
--- OUTSIDE RECORDS SUMMARY | 2024-12-03 18:36 | XMS_ITS | Encounter Summary ---
Author Organization [facility] Address [facility] [employer] [facility] [address] [place] [address] Phone Care Team Providers Care Thermoforming Machine Operator Name Role Phone Marychuy Ríos MD Primary Care Provider [phone] Baldomero Roy Primary Care Provider + Encounter Details Date Type Department Care Team (Late st Contact Info) Description 12/13/2022 Ancillary Orders [facility] Orthopedics & Sports Medicine [address] [place] [address] Raphael Graf MD [address] [place] [address] Orthopedics & Sports Medicine, [facility] [place] [place] [address] [email or web address] Pain Social History Tobacco [...] of the lateral joint space with probable mnkg-vy-qjav contact. Also on the right is arterial [...] narrowing ofthe lateral joint space with probable fnpe-rs-juab contact. Also on theright is arterial vascular [...] pain documented in this encounter Care Teams Thermoforming Machine Operator Relationship Specialty Start Date End Date Marychuy Ríos MD [address] [facility] 202 [place] [address] PCP - General Internal Medicine 11/30/20 06/06/24 Baldomero Roy PA [address] [place] [address] PCP - General Physician Lubricator Granulator 06/07/24 documented as of this encounter Additional Source Comments The information contained in this document represents components of the legal health record. It is not the complete legal health record.[facility]
--- OUTSIDE RECORDS SUMMARY | 2024-12-03 18:36 | XMS_ITS | Clinical Summary ---
Author Organization [facility] Address [address] [address] Phone Care Team Providers Care Grocery Worker Name Role Phone Baldomero Roy Primary Care [...] 200 mg magnesium Chew Activ e ascorbic ljmb-ykwxkumk-j in (VITAMIN C ENERGY BOOSTER) 1,000 mg [...] Yen MD - 06/12/2024 7:48 AM EDT [facility] Patient Name: Yecenia Gaines Attending MD:: SIXTO YEN MD, Procedure Date: 06/12/2024 7:48 AM Date of : 1950 Age: 74 Admit Type: Inpatient Gender: Female Room: [place] [address] Referring MD: Baldomero Roy Exam Type: Colonoscopy [...] bowel preparation was evaluated using the BBPS ([place] Bowel Preparation Scale) with scores of:Right Colon [...] white for ongoingcare. - Outpatient f/u with [facility]. SIXTO YEN MD 06/12/2024 8:13:01 AM This report has been signed electronically. Number of Addenda: 0 Note Initiated On: 06/12/2024 7:48 AM Procedure Code(s): --- Professional --- 48649, Colonoscopy, flexible; diagnostic, including collection of specimen(s) by brushing or washing, when performed (separateprocedure) --- Technical --- 24649, Colonoscopy, flexible; diagnostic, including collection of specimen(s) by brushing or washing, when performed (separateprocedure) Diagnosis Code(s): --- Professional --- D50.9, Iron deficiency anemia, unspecified K57.30, Diverticulosis of large intestine without perforation or abscess without bleeding --- Technical --- D50.9, Iron deficiency anemia, unspecified K57.30, Diverticulosis of large intestine without perforation or abscess without bleeding CPT copyright 2021 [employer]. All rights reserved. The codes documented in this report are preliminary and upon chemical dependency nurse reviewmay be revised to meet current compliance requirements. Procedure Date: 06/12/2024 7:48:[address] [place] [address] us Baldomero [facility] PROCEDURE ORDERABLES Final Result * (ABNORMAL) Basic metabolic panel (06/12/2024 5:14 AM EDT) SODIUM 140 133 - 146 mmol/L [facility] CHLORIDE 98 96 - 108 mmol/L [facility] POTASSIUM 3.5 3.3 - 5.1 mmol/L [facility] CO2 31 21 - 35 mmol/L [facility] BUN 31(H) 6 - 19 mg/dL [facility] CREATININE 2.30(H) 0.5 - 1.5 mg/dL [facility] GLUCOSE 104(H) 70 - 99 mg/dL [facility] CALCIUM 8.8 8.4 - 10.3 mg/dL [facility] EGFR 22(L) >59 mL/min/1.7 3m2 [facility] Comment:Estimated glomerular filtration rate calculated using the CKD-EPI refit equation. ANION GAP 15 10 - 20 mmol/L [facility] Blood 06/12/2024 5:14 AM EDT 06/12/2024 5:39 AM EDT us Pranay Rizo MD LAB BLOOD ORDERABLES Final R esult [facility] [address] [place] [address] from Last 3 Months or Most Recently Relevant to Health Maintenance Insurance MEDICARE PART A & B [facility] MEDICARE PART A & B [place] & B HEALTH MEDICARE [place] A & [place] B [facility] MEDICARE PART A & B [facility] MEDIC[facility] PART A & B [facility] MEDICARE PART A & B [facility] Advance Directives For more information, please contact: [phone] (9AM - 5PM [facility], Sunday-Sunday) Documents on File Type Date Recorded Patient Configuration Analyst Expl anation Healthcare Proxy 06/13/2024 3:02 PM Healthcare Proxy 06/12/2024 5:49 PM Health Care Proxy * Full Code (Latest Code Status on File) Date Activated Date Inactivated Comments 06/07/2024 9:14 PM Question Answer Comments Code Status Confirmed With: Patient Healthcare Agents on File Name Relationship Healthcare Agent [facility] Communication Sree Goldberg Friend .Primary Health Care Agent (Proxy form on file) Care Teams Grocery Worker Relationship Specialty Start Date End Date Baldomero Roy PA [address] [place] [address] PCP - General Physician Frit Maker 06/07/24 Additional Source Comments The information contained in this document represents components of the legal health record. It is not the complete legal health record.[facility]
--- OUTSIDE RECORDS SUMMARY | 2024-12-03 18:36 | XMS_ITS | Encounter Summary ---
Author Organization [facility] Address [address] [employer] [facility] [address] [place] [address] Phone Care Team Providers Care Electrical Laboratory Technician Name Role Phone Marychuy Ríos MD Primary Care Provider [phone] Baldomero Roy Primary Care Provider + Encounter Details Date Type Department Care Team (Late st Contact Info) Description 11/30/2020 Ancillary Orders [facility] Orthopedics & Sports Medicine [address] [place] [address] [place] [address] Alexander Matthew PA [address] [place] [address] [email or web address] Social History Tobacco Use Types Packs/Day [...] on filedocumented in this encounter Care Teams Electrical Laboratory Technician Relationship Specialty Start Date End Date Marychuy Ríos MD [address] [facility] [address] [place] [address] PCP - General Internal Medicine 11/30/20 06/06/24 Baldomero Roy PA [facility] [place] [address] PCP - General Physician Chief Embalmer 06/07/24 documented as of this encounter Additional Source Comments The information contained in this document represents components of the legal health record. It is not the complete legal health record.[facility]
== END 2024-12-03 15:50 | disposition home or self-care (01) ==
PROVIDERS: PCP Internal Medicine; Visit Provider Internal Medicine Nephrology
DX: N18.32 Chronic kidney disease, stage 3b (principal); D63.1 Anemia in chronic kidney disease; N18.31 Chronic kidney disease, stage 3a; I10 Essential (primary) hypertension
CPT/HCPCS: 99214

== ENCOUNTER 2024-12-16 10:44 | Outpatient (REF) | payer OTHER, SELFPAY ==
[2024-12-16 11:39] LABS: Hematocrit 32.3 % (37.0-47.0); Hemoglobin 9.1 g/dl (12.0-16.0); Mean Corpuscular HGB Conc 28.2 g/dl (31.0-35.0); Mean Corpuscular Hemoglobin 27.8 pg (27.0-33.0); Mean Corpuscular Volume 98.8 fL (80.0-98.0); NRBC Abs Auto 0.000 X10*3/uL (0.0-0.012); NRBC Pct Auto 0.0 /100WBC (0.0-0.2); Platelet Count 257 X10*3/uL (160-400); Red Blood Count 3.27 X10*6/uL (4.20-5.50); White Blood Count 6.4 X10*3/uL (4.8-10.8)
--- OUTSIDE RECORDS SUMMARY | 2024-12-16 13:39 | XMS_ITS | Encounter Summary ---
Author Organization [facility] Address [facility] [employer] [facility] [address] [place] [address] Phone Care Team Providers Care Regional Sales Manager Name Role Phone Marychuy Ríos MD Primary Care Provider Baldomero Roy Primary Care Provider + Encounter Details Date Type Department Care Team (Late st Contact Info) Description 12/13/2022 Ancillary Orders [facility] Medical [facility] Orthopedics & Sports Medicine [address] [place] [address] Raphael Graf MD [address] [place] [address] Orthopedics & Sports Medicine, [facility] [place] [address] [email or web address] Pain Social History Tobacco Use Types Packs/Day [...] of the lateral joint space with probable [id number] contact. Also on the right is arterial [...] narrowing ofthe lateral joint space with probable [id number] contact. Also on theright is arterial vascular [...] pain documented in this encounter Care Teams Regional Sales Manager Relationship Specialty Start Date End Date Marychuy Ríos MD [address] [facility] [address] [place] [address] PCP - General Internal Medicine 11/30/20 06/06/24 Baldomero Roy PA [address] [place] [address] PCP - General Physician Concrete Laborer 06/07/24 documented as of this encounter Additional Source Comments The information contained in this document represents components of the legal health record. It is not the complete legal health record.[facility]
--- OUTSIDE RECORDS SUMMARY | 2024-12-16 13:39 | XMS_ITS | Encounter Summary ---
Author Organization [facility] Address [address] [facility] [address] [place] [address] Phone Care Team Providers Care Evaluation Advisor Name Role Phone Baldomero Roy Primary Care Provider + Encounter Details Date Type Department Care Team (Late st Contact Info) Description 06/12/2024 Procedure Pass [facility] Endoscopy Admitting Dept Virtual Department [address] [place] [address] Social History Tobacco Use Types Packs/Day Years [...] on filedocumented in this encounter Care Teams Evaluation Advisor Relationship Specialty Start Date End Date Baldomero Roy PA [address] [place] [address] PCP - General Physician Advertising Sales Manager 06/07/24 documented as of this encounter Additional Source Comments The information contained in this document represents components of the legal health record. It is not the complete legal health record.[facility]
--- OUTSIDE RECORDS SUMMARY | 2024-12-16 13:39 | XMS_ITS | Encounter Summary ---
Author Organization [facility] Address [address] [place] [address] Phone Care Team Providers Care Electronic Technologist Name Role Phone Baldomero Roy Primary Care Provider + Encounter Details Date Type Department Care Team (Late st Contact Info) Description 06/08/2024 Procedure Pass [facility] Echo Lab [address] [place] [address] Social History Tobacco Use Types Packs/Day Years [...] on filedocumented in this encounter Care Teams Electronic Technologist Relationship Specialty Start Date End Date Baldomero Roy PA [address] [place] [address] PCP - General Physician Client Evaluator 06/07/24 documented as of this encounter Additional Source Comments The information contained in this document represents components of the legal health record. It is not the complete legal health record.[facility]
--- OUTSIDE RECORDS SUMMARY | 2024-12-16 13:39 | XMS_ITS | Clinical Summary ---
Author Organization [employer] Address [address] [facility] 7[address] [place] [address] Care Team Providers Care Barrer And Tacker Name Role Phone Unavailable Primary Care Provider [...]
--- OUTSIDE RECORDS SUMMARY | 2024-12-16 13:40 | XMS_ITS | Encounter Summary ---
Author Organization [employer] [facility] Address [address] [facility] [address] [place] [address] Care Team Providers Care Buildings And Grounds Supervisor Name Role Phone Unavailable Primary Care [...]
--- OUTSIDE RECORDS SUMMARY | 2024-12-16 13:40 | XMS_ITS | Encounter Summary ---
Author Organization [facility] Address [address] [employer] [facility] [address] [place] [address] Phone Care Team Providers Care Sugar Plantation Manager Name Role Phone Marychuy Ríos MD Primary Care Provider [phone] Baldomero Roy Primary Care Provider + Encounter Details Date Type Department Care Team (Late st Contact Info) Description 11/30/2020 Ancillary Orders [facility] Orthopedics & Sports Medicine [address] [place] [address] [place] [address] Alexander Matthew PA [address] [place] [address] [email or web address] Social History Tobacco Use Types [...] on filedocumented in this encounter Care Teams Sugar Plantation Manager Relationship Specialty Start Date End Date Marychuy Ríos MD [address] [facility] [address] [place] [address] PCP - General Internal Medicine 11/30/20 06/06/24 Baldomero Roy PA [facility] [place] [address] PCP - General Physician Inside Sales Advisor 06/07/24 documented as of this encounter Additional Source Comments The information contained in this document represents components of the legal health record. It is not the complete legal health record.[facility]
--- OUTSIDE RECORDS SUMMARY | 2024-12-16 13:40 | XMS_ITS | Encounter Summary ---
Author Organization [email or web address] [facility] Address [address] [facility] [address] [place] [address] Care Team Providers Care Message Clerk Name Role Phone Unavailable Primary Care [...]
--- OUTSIDE RECORDS SUMMARY | 2024-12-16 13:40 | XMS_ITS | Clinical Summary ---
Author Organization [facility] Address [address] [address] Phone Care Team Providers Care Anthropologist Name Role Phone Baldomero Roy Primary Care [...] 200 mg magnesium Chew Activ e ascorbic jfts-ojwexaes-k in (VITAMIN C ENERGY BOOSTER) 1,000 mg [...] Yen MD - 06/12/2024 7:48 AM EDT [facility] Patient Name: Yecenia Gaines Attending MD:: SIXTO YEN MD, Procedure Date: 06/12/2024 7:48 AM Date of : 1950 Age: 74 Admit Type: Inpatient Gender: Female Room: [place] [address] Referring MD: Baldomero Roy Exam Type: Colonoscopy [...] bowel preparation was evaluated using the BBPS (Proctor Bowel Preparation Scale) with scores of:Right Colon [...] white for ongoingcare. - Outpatient f/u with [facility] SIXTO YEN MD 06/12/2024 8:13:01 AM This report has been signed electronically. Number of Addenda: 0 Note Initiated On: 06/12/2024 7:48 AM Procedure Code(s): --- Professional --- 58736, Colonoscopy, flexible; diagnostic, including collection of specimen(s) by brushing or washing, when performed (separateprocedure) --- Technical --- 15420, Colonoscopy, flexible; diagnostic, including collection of specimen(s) by brushing or washing, when performed (separateprocedure) Diagnosis Code(s): --- Professional --- D50.9, Iron deficiency anemia, unspecified K57.30, Diverticulosis of large intestine without perforation or abscess without bleeding --- Technical --- D50.9, Iron deficiency anemia, unspecified K57.30, Diverticulosis of large intestine without perforation or abscess without bleeding CPT copyright 2021 [employer]. All rights reserved. The codes documented in this report are preliminary and upon fur drummer reviewmay be revised to meet current compliance requirements. Procedure Date: 06/12/2024 7:48:[address] [place] [address] [place] Baldomero [facility] GI PROCEDURE ORDERABLES Final Result * (ABNORMAL) Basic metabolic panel (06/12/2024 5:14 AM EDT) SODIUM 140 133 - 146 mmol/L [facility] CHLORIDE 98 96 - 108 mmol/L [facility] POTASSIUM 3.5 3.3 - 5.1 mmol/L [facility] CO2 31 21 - 35 mmol/L [facility] BUN 31(H) 6 - 19 mg/dL [facility] CREATININE 2.30(H) 0.5 - 1.5 mg/dL [facility] GLUCOSE 104(H) 70 - 99 mg/dL [facility] CALCIUM 8.8 8.4 - 10.3 mg/dL [facility] EGFR 22(L) >59 mL/min/1.7 3m2 [facility] Comment:Estimated glomerular filtration rate calculated using the CKD-EPI refit equation. ANION GAP 15 10 - 20 mmol/L [facility] Blood 06/12/2024 5:14 AM EDT 06/12/2024 5:39 AM EDT us Pranay Rizo MD LAB BLOOD ORDERABLES Final R esult [facility] [address] [place] [address] from Last 3 Months or Most Recently Relevant to Health Maintenance Insurance MEDICARE PART A & B [facility] MEDICARE PART A & B [place] HEALTH MEDICARE PART A & [place] PART A & B [facility]IC[facility] PART [facility] & [facility] & B [facility] Advance Directives For more information, please contact: [phone] (9AM - 5PM [facility], Sunday-Sunday) Documents on File Type Date Recorded Patient Wild Life Manager Expl anation Healthcare Proxy 06/13/2024 3:02 PM Healthcare Proxy 06/12/2024 5:49 PM Health Care Proxy * Full Code (Latest Code Status on File) Date Activated Date Inactivated Comments 06/07/2024 9:14 PM Question Answer Comments Code Status Confirmed With: Patient Healthcare Agents on File Name Relationship Healthcare Agent [facility] Communication Sree Goldberg Friend .Primary Health Care Agent (Proxy form on file) Care Teams Anthropologist Relationship Specialty Start Date End Date Baldomero Roy PA [address] [place] [address] PCP - General Physician Pasta Maker 06/07/24 Additional Source Comments The information contained in this document represents components of the legal health record. It is not the complete legal health record.[facility]
--- OUTSIDE RECORDS SUMMARY | 2024-12-16 13:40 | XMS_ITS | Encounter Summary ---
Author Organization [facility] Address [address] [place] [address] Phone Care Team Providers Care Fashion Styling Intern Name Role Phone Marychuy Ríos MD Primary Care Provider [phone] Baldomero Roy Primary Care Provider + Reason [...] Expiration Date Visits Re quested Visits Authorized [id number] Closed 11/14/2021 11/14/2022 1 1 Encounter Details Date Type Department Care Team (Late st Contact Info) Description 11/14/2021 Transcribe Orders Virtual Department [address] [place] [address] Marychuy Ríos MD [address] [address] Bruit of right carotid artery (Primary Dx); [...] infarction documented in this encounter Care Teams Fashion Styling Intern Relationship Specialty Start Date End Date Marychuy Ríos MD [address] [facility] [address] [place] [address] PCP - General Internal Medicine 11/30/20 06/06/24 Baldomero Roy PA [address] [place] [address] PCP - General Physician Search Engineer 06/07/24 documented as of this encounter Additional Source Comments The information contained in this document represents components of the legal health record. It is not the complete legal health record.[facility]
--- OUTSIDE RECORDS SUMMARY | 2024-12-16 13:40 | XMS_ITS | Encounter Summary ---
Author Organization [facility] Address [address] [email or web address] [facility] [address] [place] [address] Phone Care Team Providers Care Lubricating Specialist Name Role Phone Marychuy Ríos MD Primary Care Provider [phone] Baldomero Roy Primary Care Provider + Encounter Details Date Type Department Care Team (Late st Contact Info) Description 11/30/2020 Ancillary Orders [facility] Orthopedics & Sports Medicine [address] [place] [address] [place] [address] Alexander Matthew PA [address] [place] [address] [email or web address] Social History Tobacco Use Types Packs/Day [...] on filedocumented in this encounter Care Teams Lubricating Specialist Relationship Specialty Start Date End Date Marychuy Ríos MD [address] [facility] [address] [place] [address] PCP - General Internal Medicine 11/30/20 06/06/24 Baldomero Roy PA [facility] [place] [address] PCP - General Physician Dairy Processing Supervisor 06/07/24 documented as of this encounter Additional Source Comments The information contained in this document represents components of the legal health record. It is not the complete legal health record.[facility]
== END 2024-12-16 10:45 | disposition home or self-care (01) ==
LOC: HO.LAB 10:44
PROVIDERS: PCP Physician Assistant; Visit Provider Physician Assistant
DX: I25.811 Atherosclerosis of native coronary artery of transplanted heart without angina pectoris (principal); I12.9 Hypertensive chronic kidney disease with stage 1 through stage 4 chronic kidney disease, or unspecified chronic kidney disease; N18.32 Chronic kidney disease, stage 3b; D63.1 Anemia in chronic kidney disease; M17.11 Unilateral primary osteoarthritis, right knee
CPT/HCPCS: 36415; 85027; 99212

== ENCOUNTER 2024-12-16 12:53 | Outpatient (AMB) | payer OTHER, SELFPAY ==
--- NOTE | 2024-12-16 12:59 | MHC.PC.OV ---
Vital Signs 12/16/24 13:01 Height 5 ft 8 in Weight 172 lb 2.896 oz BMI 26.2 BP 160/68 H Blood Pressure Location Rt brachial Position Sitting Pulse 75 Pulse Source Pulse Oximeter Temp 97.3 F Temp Source Temporal Artery Scan Pulse Oximetry (%) 99 Oxygen Delivery Method Room Air Intake Visit Reasons: follow up Intake Note: Patient is here to follow up on Lymphedema, OA, CAD, HTN. Doctor Of Nursing Practice Required: No Security Trainer: Not Required per policy Accompanied by: Self / Same As Patient Allergies lisinopril Allergy (Severe, Verified 12/16/24 13:15) Unknown codeine Allergy (Intermediate, Verified 12/16/24 13:15) Nausea latex Allergy (Intermediate, Verified 12/16/24 13:15) Rash hydrochlorothiazide Allergy (Unknown, Verified 12/16/24 13:15) Unknown morphine Allergy (Unknown, Verified 12/16/24 13:15) Nausea SHAYY Inhibitors Adverse Reaction (Unknown, Verified 12/16/24 13:15) Unknown Medication List - Last Reconciled 12/16/24 by Baldomero Roy PA-C acetaminophen 1,500 mg PO DAILY PRN apixaban (Eliquis) 2.5 mg PO BID ascorbate calcium (vitamin C) 1 g PO MOFR clonidine HCl 0.1 mg PO TID 30 days ezetimibe (Zetia) 10 mg PO DAILY furosemide (Lasix) 20 mg PO BID isosorbide mononitrate ER 90 mg (3 x 30 mg) PO DAILY leg brace (Knee Support Brace) As directed Right hinged knee brace Dx: osteoarthritis knee mecobalamin (vitamin B12) 1,000 mcg PO DAILY metoprolol tartrate 50 mg PO BID 90 days omeprazole-sodium bicarbonate 2-84 mg/mL (Konvomep) 10 mL PO BID@0630,1630 90 days prednisone 5 mg PO DAILY 90 days Tobacco use date assessed: 12/16/24 Fall risk assessment: 1 Fall in past year Last assessed Fall Risk: 12/16/24 Dental Screening Dental Screen Date: 08/29/24 HPI follow up HPI Details Patient is a 74-year-old female here today for follow-up visit. Has not seen a primary care in quite some time. Patient has a is complex medical history significant for DVT with pulmonary embolism in 2017 on Eliquis, hypertension, hyperlipidemia, end-stage renal disease, chronic anemia requiring multiple transfusions, CAD and osteoarthritis. .. CKD stage 4: Followed by Nephrology, patient recently found to be very anemic and was hospitalized at [facility] and received blood transfusions. She reports this was in the setting of taking a lot of NSAIDs and aspirin due to her knee pain. Most recent hemoglobin improved in stable at 9. .. Coronary artery disease: Has coronary heart stent placement many years ago. She is followed by a land acquisition manager. Currently not on statin therapy. Goal LDL is to be below 70 .. Knee osteoarthritis: Continues to significant arthritic pain in her knee to which she has tried topical analgesics and Tylenol without much relief. She is unable take NSAIDs due to contraindications of anticoagulation. Past treatments have been largely unsuccessful, including Tylenol, topical Voltaren, a knee brace, gel injections that worsened her pain, and gabapentin, which was ineffective. She occasionally uses prednisone but avoids it due to side effects like bloating and a sensation of heaviness in her thighs. The only medication she finds helpful is oxycodone, which she uses sparingly, about once a month. .. Pulmonary embolism (in 2017)- unclear cause of patient's thromboembolism. She continues on Eliquis though she reports she will stop this medication as she has concerned about her continued low red blood cell and hemoglobin even with the use of Procrit Laboratory Tests 05/14/24 06/04/24 07/02/24 07:26 09:46 12:37 Hgb 9.2 L 5.7 L* D 9.3 L D MCV Creatinine Iron TIBC Ferritin 10/17/24 10/29/24 12/03/24 10:42 12:01 12:00 Hgb MCV Creatinine 2.53 H 2.89 H Iron 31 TIBC 237 Ferritin 2195 H 12/16/24 10:55 Hgb 9.1 L MCV 98.8 H Creatinine Iron TIBC Ferritin PFSH Medical History Graves disease CAD (coronary artery disease) Osteoarthritis Hx of transfusion of packed red blood cells Diet-controlled diabetes mellitus Pulmonary embolism DVT (deep venous thrombosis) Anemia in chronic kidney disease Hypertension CKD (chronic kidney disease) stage 3, GFR 30-59 ml/min Surgical History History of tooth extraction Hx of heart artery stent History of partial hysterectomy Family History Maternal Grandfather Stomach cancer Social History Household Members: None Housing: Apartment Do you presently have visiting nurse or other home services: No Alcohol intake: never Patient Tobacco Use Status: Former Tobacco user Tobacco use type: Cigarette e-Cigarette/Vaping Use: Never Used Second Hand Smoke Exposure: Yes service: No Current occupational status: retired Cognitive needs: Yes ([employer]) Hearing needs: Yes Vision needs: No Questionnaire Thrive Questionnaire Date Thrive assessed: 06/30/24 I am a: Patient What is your living situation today?: I have a steady place to live Within the past 12 months, did the food you bought not last and you didn't have the money to get more?: Never true Within the past 12 months, did you worry whether your food would run out before you got money to buy more?: Never true Do you have trouble paying for medicines?: No Do you have trouble getting transportation to medical appointments?: No Do you have trouble paying your heating and electricity bill?: No Do you have trouble taking care of your child, family member or friend?: Yes Do you have trouble with day-to-day activities such as bathing, preparing meals, shopping, managing finances, etc.?: No Are you currently unemployed and looking for a job?: No Are you interested in more education?: No Please select the resources that you would like help with: None Currently or been in a relationship where the following occur: No concerns reported THRIVE Score: 0 SHELIA-7 AMB Questionnaire SHELIA-7 Date SHELIA - 7 assessed: 07/02/24 Source: Developed by Drs. Raphael Beyer, Josiane Soto, Gerry Burdick and colleagues, with an educational usama from [employer]. Review of Systems Const Denies headache(s) Eyes Denies loss of vision ENT Denies vertigo, Denies dizziness, Denies headache(s) and Denies sore throat Card Denies chest pain, Denies leg edema and Denies lightheadedness Resp Denies cough, Denies hemoptysis and Denies wheezing GI Denies abdominal pain, Denies melena, Denies constipation, Denies diarrhea and Denies vomiting Denies urinary frequency, Denies dysuria and Denies urinary urgency Musc Denies arthralgias, Denies joint swelling, Denies numbness and Denies tingling Neuro Denies Abnormal speech present, Denies behavioral changes, Denies vertigo, Denies dizziness, Denies headache(s), Denies loss of vision, Denies memory loss, Denies numbness and Denies tingling Psych Denies anxiety, Denies behavioral changes, Denies depression, Denies memory loss and Denies panic attacks Marcus/Lymph Denies easy bleeding and Denies easy bruising Aller/Immun Denies wheezing Physical exam (Primary Care) Vital Signs: Last Vital Signs Temp 97.3 F 12/16/24 13:01 Pulse 75 12/16/24 13:01 BP 160/68 H 12/16/24 13:01 Pulse Ox 99 12/16/24 13:01 Oxygen Delivery Method Room Air 12/16/24 13:01 BMI result Body Mass Index 26.2 Tobacco/Smoking Status: Tobacco use Status Tobacco use date assessed 12/16/24 12/16/24 13:10 Patient Tobacco Use Status Former Tobacco user 12/16/24 13:10 Tobacco use type Cigarette 12/16/24 13:10 e-Cigarette/Vaping Use Never Used 12/16/24 13:10 Thrive Assessment: Date of Thrive Assessment Date Thrive assessed 06/30/24 12/16/24 13:10 Currently or been in a relationship where the following occur: No concerns reported Const General: healthy appearing, no acute distress, alert and awake Nutritional Appearance: well nourished Orientation/consciousness: oriented to person, oriented to place and oriented to time HENMT Ears: TM's normal bilaterally General nose exam: Normal nasal mucous membranes and turbinates present Eyes Conjunctivae: conjunctivae normal Sclerae: sclerae normal Pupils: Equal, round and reactive pupils present Neck Neck: Yes no lymphadenopathy and Yes no JVD Thyroid: Thyroid normal Carotids: no bruits Resp Effort & Inspection: normal respiratory effort and not tachypneic Auscultation: no crackles, no rales, no rhonchi and no wheezes Cardio Rate: regular rate Rhythm: regular rhythm Heart sounds: no murmurs and normal S1 and S2 GI Palpation (GI): Soft to palpation, nontender, no hepatomegaly and no splenomegaly Auscultation: normal bowel sounds Skin General skin exam: no rashes or lesions noted and dry skin Neuro General: oriented to person, oriented to place and oriented to time Cranial nerves: Yes Equal, round and reactive pupils present Speech: No Abnormal speech present Gait exam (Neuro): Normal gait present Motor exam (neuro): no tremor noted Extrem Other: BILATERAL LOWER EXTREMITIES QUITE EDEMATOUS TO THE LEVEL OF KNEES Right upper extremity: full ROM Left upper extremity: full ROM Right lower extremity: full ROM; no edema Left lower extremity: full ROM; no edema Psych Mental Status: mental status grossly normal Speech and movement: Normal speech and movement present Affect: normal affect Attitude: cooperative Thought process: Normal thought process present Coding Level of Care Code Est Pt Level 4 (75460) Diagnoses Primary hypertension I10 Hypertension type: primary hypertension Coronary artery disease 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 transplanted heart: transplanted heart Stage 3a chronic kidney disease N18.31 Chronic kidney disease stage 3 subtype: stage 3a (GFR 45-59) Anemia in stage 3b chronic kidney disease N18.32; D63.1 Chronic kidney disease stage: stage 3 (moderate) Chronic kidney disease stage 3 subtype: stage 3b (GFR 30-44) Primary osteoarthritis of right knee M17.11 Osteoarthritis type: primary Assessment & Plan Assessment & Plan (1) Hypertension: Code(s): I10 - Essential (primary) hypertension Category: Medical Qualifiers: Hypertension type: primary hypertension Qualified Code(s): I10 - Essential (primary) hypertension Plan: Patient is on amlodipine 5 mg twice a day with clonidine 0.1 mg 3 times a day isosorbide mononitrate 90 mg once a day (2) CAD (coronary artery disease): Code(s): I25.10 - Atherosclerotic heart disease of [place] coronary artery without angina pectoris Category: Medical Qualifiers: Associated angina: without angina Coronary Disease-Associated Artery/Lesion type: [place] artery [place] vs. transplanted heart: transplanted heart Qualified Code(s): I25.811 - Atherosclerosis of [place] coronary artery of transplanted heart without angina pectoris Plan: Control the cholesterol, weight, blood pressur continue with anticoagulation Eliquis 2.5 mg twice a day (3) CKD (chronic kidney disease) stage 3, GFR 30-59 ml/min: Code(s): N18.30 - Chronic kidney disease, stage 3 unspecified Category: Medical Qualifiers: Chronic kidney disease stage 3 subtype: stage 3a (GFR 45-59) Qualified Code(s): N18.31 - Chronic kidney disease, stage 3a Plan: Continue to follow-up with Nephrology on Procrit for the blood count (4) Anemia in chronic kidney disease: Code(s): N18.9 - Chronic kidney disease, unspecified; D63.1 - Anemia in chronic kidney disease Category: Medical Qualifiers: Chronic kidney disease stage: stage 3 (moderate) Chronic kidney disease stage 3 subtype: stage 3b (GFR 30-44) Qualified Code(s): N18.32 - Chronic kidney disease, stage 3b; D63.1 - Anemia in chronic kidney disease Plan: On Procrit continue to monitor blood count (5) Osteoarthritis of right knee: Comment: Uncontrolled knee pain. She has failed 1 cortisone injection and hyaluronic acid injection, gel 1. We discussed medical management of knee osteoarthritis. She has temporary benefit with Tylenol. Pain is uncontrolled and she would not be able to participate in physical therapy. We discussed the importance of bracing and trying to control edema in legs to enable improved ambulation. We discussed in setting of CKD she has limited with medications to use. Contraindication to oral NSAIDs and duloxetine. We discussed considering gabapentin. Discussed side effects, benefits and drug monitoring. We also discussed considering geniculate nerve block with pain management referral. She would like to proceed with trying gabapentin. Code(s): M17.11 - Unilateral primary osteoarthritis, right knee Category: Medical Qualifiers: Osteoarthritis type: primary Qualified Code(s): M17.11 - Unilateral primary osteoarthritis, right knee Plan: For management of chronic knee pain, a prescription for oxycodone will be sent to have on hand for breakthrough pain, with the understanding that the patient uses it infrequently. She does understand the habit-forming/addictive nature of narcotics and will only use for pain scales of 9-10. Will encourage the patient to explore alternative, non-surgical treatment options such as customer care associate and acupuncture, for which she can self-refer. The potential benefit of topical treatments, including CBD or marijuana-based ointments, was also discussed as an option. Orders: Orders Comprehensive [place]. Panel Fast 12/16/24 I25.811 - Atherosclerosis of [place] coronary artery of transplanted heart without angina pectoris Vitamin D 25-OH Total 12/16/24 N18.31 - Chronic kidney disease, stage 3a Complete Blood Count no Diff 12/16/24 N18.31 - Chronic kidney disease, stage 3a Medications: New oxycodone Partial Fill upon patient request. 5 mg PO BID PRN 30 tabs 0RF pain 15 days M19.90 - Unspecified osteoarthritis, unspecified site
[2024-12-16 13:01] VITALS: BP 160/68; PULSE 75; TEMP 36.3; O2SAT 99; BMI 26.2
== END 2024-12-16 13:55 | disposition home or self-care (01) ==
LOC: HO.HMCH 12:54
PROVIDERS: PCP Internal Medicine; Visit Provider Physician Assistant
DX: I10 Essential (primary) hypertension (principal); I25.811 Atherosclerosis of native coronary artery of transplanted heart without angina pectoris; N18.31 Chronic kidney disease, stage 3a; N18.32 Chronic kidney disease, stage 3b; D63.1 Anemia in chronic kidney disease; M17.11 Unilateral primary osteoarthritis, right knee

== ENCOUNTER 2025-01-14 09:10 | Outpatient (REF) | payer OTHER, SELFPAY ==
[2025-01-14 09:26] LABS: MANUAL DIFF FLAG NO
[2025-01-14 10:02] LABS: Hematocrit 30.9 % (37.0-47.0); Hemoglobin 8.8 g/dl (12.0-16.0); Imm Gran Abs Auto 0.03 X10*3/uL (0.00-0.03); Imm Gran Pct Auto 0.4 % (0.0-0.4); Lymphocytes Absolute Auto 0.7 X10*3/uL (1.2-4.9); Mean Corpuscular HGB Conc 28.5 g/dl (31.0-35.0); Mean Corpuscular Hemoglobin 28.2 pg (27.0-33.0); Mean Corpuscular Volume 99.0 fL (80.0-98.0); NRBC Abs Auto 0.000 X10*3/uL (0.0-0.012); NRBC Pct Auto 0.0 /100WBC (0.0-0.2); Platelet Count 286 X10*3/uL (160-400); Red Blood Count 3.12 X10*6/uL (4.20-5.50); White Blood Count 7.3 X10*3/uL (4.8-10.8)
--- OUTSIDE RECORDS SUMMARY | 2025-01-14 10:04 | XMS_ITS | Encounter Summary ---
Author Organization [facility] Address [address] [facility] [address] [place] [address] Phone Care Team Providers Care Eligibility Clerk Name Role Phone Baldomero Roy Primary Care Provider + Encounter Details Date Type Department Care Team (Late st Contact Info) Description 06/12/2024 Procedure Pass [facility] Endoscopy Admitting Dept Virtual Department [address] [place] [address] Social History Tobacco Use Types Packs/Day Years [...] as of this encounter Plan of Treatment Upcoming Encounters Date Type Department Care Team (Late st Contact Info) Description 04/07/2025 12:00 PM EST Office Visit [facility] [address] [place] [address] Naun Duran DO [address] [place] [address] documented as of this encounter Visit Diagnoses Not on filedocumented in this encounter Additional Health Concerns Infection Onset Date Last Indicated Resolved Time Resp-Risk Comment:Per note documentation 12/29/2024 12/29/2024 6:41 AM EST documented as of this encounter Care Teams Eligibility Clerk Relationship Specialty Start Date End Date Baldomero Roy PA [address] [place] [address] PCP - General Physician Jewel Bearing Facer 06/07/24 documented as of this encounter Additional Source Comments The information contained in this document represents components of the legal health record. It is not the complete legal health record.[facility]
--- OUTSIDE RECORDS SUMMARY | 2025-01-14 10:04 | XMS_ITS | Encounter Summary ---
Author Organization [facility] Address [address] [place] [address] Phone Care Team Providers Care Clinical Field Specialist Name Role Phone Marychuy Ríos MD Primary Care Provider [phone] Encounter Details Date Type Department Care Team (Late st Contact Info) Description 09/01/2020 Orders Only [facility] [address] [place] [address] [place] [phone] London Boyer MD [address] [place] [address] Stage 3b chronic kidney disease (HCC); Essential [...] 7:46 AM EDT) Glucose 113(H) (70-99) MG/DL [facility] BUN 42(H) (8-23) MG/DL [facility] Creatinine 2.0(H) (0.5-1.0) MG/DL [facility] Sodium 141 (133-145) MMOL/L [facility] Potassium 5.1 (3.6-5.2) MMOL/L [facility] Chloride 106 (98-107) MMOL/L [facility] Bicarbonate (CO2) 23 (22-29) MMOL/L [facility] Anion Gap 12 (4-17) [facility] Albumin 4.2 (3.4-4.8) GM/DL [facility] Calcium 9.5 (8.6-10.5) MG/DL [facility] Phosphorus, Serum 3.8 (2.5-4.5) MG/DL [facility] Est GFR Non 25 ML/MIN/1.7 3 M2 [facility] Comment: Creatinine based estimated glomerular filtration rate (eGFR) is calculated using the Chronic Kidney Disease Epidemiology Collaboration (CKD-EPI). The CKD-EPI creatinine equation has not been validated in children (<18 years), women or in some racial or ethnic subgroups other than Caucasians and Americans. EST GFR 29 ML/MIN/1.7 3 M2 [facility] Comment: Creatinine based estimated glomerular filtration rate (eGFR) is calculated using the Chronic Kidney Disease Epidemiology Collaboration (CKD-EPI). The CKD-EPI creatinine equation has not been validated in children (<18 years), women or in some racial or ethnic subgroups other than Caucasians and Americans. Testing performed or reported by [facility], a Service of [facility], [address] [place] [address] John Muñiz MD, Octave Board Assembler Blood specimen (specimen) Venous blood / Unknown 08/03/2020 7:46 AM EDT 08/03/2020 7:49 AM EDT us London Boyer MD LAB BLOOD ORDERABLES Final Resul t [facility] * (ABNORMAL) CBC (08/03/2020 7:46 AM EDT) White Blood Cells 6.3 (4.0-11.0) K/MM3 [facility] RBC 3.73(L) (4.20-5.40 ) M/MM3 [facility] Hgb 9.7(L) (11.7-15.5 ) GM/DL [facility] Hematocrit 34.5(L) (35.7-45.8 ) % [facility] MCV 92.5 (80.0-100. 0) [place] [facility] MCH 26.0(L) (27.0-34.0 ) PG [facility] MCHC 28.1(L) (33.0-37.0 ) g/dL [facility] Platelets 262 (150-460) K/MM3 [facility] RDW-SD 59.2(H) (<47.0) [place] [facility] MPV 12.1 (9.4-12.4) [place] [facility] nRBC Count 0.3 #/100 WBC'S [facility] NRBC Absolute 0.0 K/MM3 [facility] Comment: Testing performed or reported by [facility], a Service of [facility], [address] [place] [address] John Muñiz MD, Octave Board Assembler Blood specimen (specimen) Venous blood / Unknown 08/03/2020 7:46 AM EDT 08/03/2020 7:49 AM EDT us London Boyer MD LAB BLOOD ORDERABLES Final Resul t [facility] documented in this encounter Visit Diagnoses Diagnosis Stage 3b chronic kidney disease (HCC) Essential hypertension documented in this encounter Care Teams Clinical Field Specialist Relationship Specialty Start Date End Date Marychuy Ríos MD [address] [place] [address] PCP - General Internal Medicine 11/03/20 documented as of this encounter
--- OUTSIDE RECORDS SUMMARY | 2025-01-14 10:04 | XMS_ITS | Encounter Summary ---
Author Organization [facility] Address [address] [facility] [address] [place] [address] Phone Care Team Providers Care Network Control Operator Name Role Phone Marychuy Ríos MD Primary Care Provider [phone] Baldomero Roy Primary Care Provider + Encounter Details Date Type Department Care Team (Late st Contact Info) Description 12/13/2022 Ancillary Orders [facility] Orthopedics & Sports Medicine [address] [place] [address] Raphael Graf MD [address] [place] [address] Orthopedics & Sports Medicine, [facility]. [place], [place] [phone] [email or web address] Pain Social History Tobacco Use Types Packs/Day [...] Description 04/07/2025 12:00 PM EST Office Visit [facility] Geriatrics [address] [place] [address] Naun Duran DO [address] [place] [address] documented as of this encounter Results * [...] of the lateral joint space with probable idfh-nt-nfll contact. Also on the right is arterial [...] narrowing ofthe lateral joint space with probable dnqa-st-kxfw contact. Also on theright is arterial vascular [...] Pain Generalized pain documented in this encounter Additional Health Concerns Infection Onset Date Last Indicated Resolved Time Resp-Risk Comment:Per note documentation 12/29/2024 12/29/2024 6:41 AM EST documented as of this encounter Care Teams Network Control Operator Relationship Specialty Start Date End Date Marychuy Ríos MD [address] [address] PCP - General Internal Medicine 11/30/20 06/06/24 Baldomero Roy PA [address] [place] [address] PCP - General Physician Coil Taper 06/07/24 documented as of this encounter Additional Source Comments The information contained in this document represents components of the legal health record. It is not the complete legal health record.[facility]
--- OUTSIDE RECORDS SUMMARY | 2025-01-14 10:05 | XMS_ITS | Encounter Summary ---
Author Organization [facility] Address [address] [facility] [address] [place] [address] Phone Care Team Providers Care Report Writer Name Role Phone Marychuy Ríos MD Primary Care Provider Baldomero Roy Primary Care Provider + Encounter Details Date Type Department Care Team (Late st Contact Info) Description 11/30/2020 Ancillary Orders [facility] Orthopedics & Sports Medicine [address] [place] [address] [place] [address] Alexander Matthew PA [address] [place] [phone] [email or web address] Social History Tobacco Use Types [...] Description 04/07/2025 12:00 PM EST Office Visit [facility] Geriatrics [address] [place] [address] Naun Duran DO [address] [place] [address] [email or web address] documented as of this encounter Visit Diagnoses Not on filedocumented in this encounter Additional Health Concerns Infection Onset Date Last Indicated Resolved Time Resp-Risk Comment:Per note documentation 12/29/2024 12/29/2024 5 6:41 AM EST documented as of this encounter Care Teams Report Writer Relationship Specialty Start Date End Date Marychuy Ríos MD [address] [facility] [address] [place] [address] PCP - General Internal Medicine 11/30/20 06/06/24 Baldomero Roy PA [address] [place] [address] PCP - General Physician Corporate Financial Analyst 06/07/24 documented as of this encounter Additional Source Comments The information contained in this document represents components of the legal health record. It is not the complete legal health record.[facility]
--- OUTSIDE RECORDS SUMMARY | 2025-01-14 10:05 | XMS_ITS | Clinical Summary ---
Author Organization Formerly [facility] Address [address] [place] [phone] Phone Care Team Providers Care Manufacturing Engineer Name Role Phone Baldomero Roy Primary Care Provider + Allergies Active Allergy Reactions Criticality Noted Date Comments Allerg Xt,Erininae-D.Pteronys 11/15/2022 Codeine Unknown 04/08/2020 Hydralazine Erythema Low 12/30/2024 Drug induced lupus Nsaids (Non-Steroidal Anti-Inflammatory Drug) Unknown,Other (See Comments) 07/27/2020 Medications vitamin B complex-folic acid (B COMPLEX 1, WITH FOLIC ACID,) 0.4 mg Tab Take 1 tablet by mouth. Active magnesium oxide 200 mg magnesium Chew Activ e ascorbic acid-multivit- min (VITAMIN C ENERGY BOOSTER) 1,000 mg PwEP Active apixaban (ELIQUIS) 2.5 mg Take 2.5 mg by mouth 2 (two) times a day. Active cloNIDine HCL (CATAPRES) 0.1 MG tablet Take 0.1 mg by mouth every 8 (eight) hours. Active metoprolol tartrate (LOPRESSOR) 50 MG tablet Take 50 mg by mouth 2 (two) times a day. Active furosemide (LASIX) 40 MG tablet Take 40 mg by mouth daily. Active oxyCODONE 5 MG immediate release tablet Take 5 mg by mouth every 8 (eight) hours as needed for pain (specific location in comments). Partial fill ok Active predniSONE (DELTASONE) 5 MG tablet Take 5 mg by mouth daily as needed. Active isosorbide dinitrate (ISORDIL) 30 MG immediate release tablet Take 1 tablet (30 mg total) by mouth 3 (three) times a day. 90 tablet 2 01/03/20 Active lidocaine (LIDODERM) 5 % Place 1 patch onto the skin daily. Remove & Discard patch within 12 hours or as directed by 30 patch 11/16/19 Discontinued(No longer taking) bumetanide (BUMEX) 0.5 MG tablet Take 1 tablet (0.5 mg total) by mouth daily. 30 tablet 06/14/19 Discontinued(No longer taking) gabapentin (NEURONTIN) 100 MG capsule Take 1 capsule (100 mg total) by mouth 2 (two) times a day. 60 capsule 06/12/19 Discontinued(No longer taking) isosorbide dinitrate (ISORDIL) 20 MG immediate release tablet Take 1 tablet (20 mg total) by mouth 2 (two) times a day. 60 tablet 06/12/19 Discontinued isosorbide dinitrate (ISORDIL) 30 MG immediate release tablet Take 1 tablet (30 mg total) by mouth 3 (three) times a day. 90 tablet 2 01/03/20 Discontinued cefpodoxime (VANTIN) 200 MG tablet Take 1 tablet (200 mg total) by mouth daily for 1 dose. 1 tablet 01/04/20 Discontinued cefpodoxime (VANTIN) 200 MG tablet Take 1 tablet (200 mg total) by mouth daily for 1 dose. 1 tablet 01/04/20 Active Problems Problem Noted Date Diagnosed Date Hypertensive urgency 12/31/2024 Respiratory distress 12/30/2024 Pulmonary edema 12/29/2024 Assessment & Plan (2025 10:15 AM EST): Plan: -Acute pulmonary edema with hypertensive emergency likely secondary to CHF exacerbation -Initially presented to the ED with blood pressures of 250 systolic, requiring BiPAP, nitroglycerin gtt., quickly improved with administration of home clonidine, BP medications and nitroglycerin paste, no longer on supplemental oxygen -Underlying history of CHF, prior history of CAD/CO, last admission 05/2024 with some presentation similar presentation required Cardene gtt. in the ICU with BiPAP. -CXR did reveal pulmonary edema and enlarged cardiac silhouette, BNP grossly elevated, troponins flat x 2. -Continue BP management as above, responding nicely -Continue Lasix 40 mg daily -was concern for possible PNA- completed 3 days of azithro- now on oral cefpodoxime to complete 5 day course (should end tomorrow) Assessment & Plan (12/29/2024 4:45 PM EST): -Acute pulmonary edema with hypertensive emergency likely secondary to CHF exacerbation -Initially presented to the ED with blood pressures of 250 systolic, requiring BiPAP, nitroglycerin gtt., quickly improved with administration of home clonidine, BP medications and nitroglycerin paste, no longer on supplemental oxygen -Underlying history of CHF, prior history of CAD/CO, last admission 05/2024 with some presentation similar presentation required Cardene gtt. in the ICU with BiPAP. -CXR did reveal pulmonary edema and enlarged cardiac silhouette, BNP grossly elevated, troponins flat x 2. Plan: Oxygen has been weaned off Continue BP management, resume home medications as tolerated, as needed hydralazine/labetalol for persistently elevated BP, if systolic above 180 or symptomatic. Continue Lasix 40 mg daily Repeat echocardiogram ordered and pending Further workup for CHF exacerbation as above. CHF exacerbation 06/07/2024 Assessment & Plan (2025 10:15 AM EST): Plan: - Presented with acute pulmonary edema and hypertensive emergency secondary to CHF exacerbation, patient has underlying history of grade 2 diastolic dysfunction based on last echocardiogram performed 05/2024 revealed LVEF 50 to 55%, grade 2 diastolic dysfunction mild to moderate mitral regurgitation. -VERY hypertensive on arrival requiring nitro in the ICU -Follows with cardiology as an outpatient, per patient she has been instructed to reduce her Lasix and isosorbide mononitrate, this was due to of improved BP control as well as rising creatinine in the outpatient setting. -admits to non-compliance with medications at times -BNP significantly elevated to 21,000, previously 8049, troponin 43 initially 49 on recheck. D-dimer was significantly at 7410. -Underlying history of CAD/CO with prior PCI in 2019, ASA was discontinued on prior admission due to suspected blood loss anemia in 05/2024, cardiology as an outpatient did not resume this as of now. -Transitioning back to home Lasix 40 mg daily -Strict I's and O's and daily weights -Cardiology consult appreciated, recommendations appreciated, will follow-up after discharge -Repeat echo showed EF of 45 to 50% with moderate to severe mitral regurg and moderate to severe left atrial enlargement. -Continue telemetry monitoring -In ICU, they trialed a clonidine patch given concerns of noncompliance outpatient however, at this time patient is refusing and would like to go back to the pills, we will transition this today -Continue home isosorbide mononitrate and metoprolol (pt refused to transition to coreg due to listed side effects ) -Jardiance added by cards, tolerating well -Patient has intolerances to amlodipine and hydralazine -continue to monitor BP Assessment & Plan (12/29/2024 4:45 PM EST): - Presented with acute pulmonary edema and hypertensive emergency secondary to CHF exacerbation, patient has underlying history of grade 2 diastolic dysfunction based on last echocardiogram performed 05/2024 revealed LVEF 50 to 55%, grade 2 diastolic dysfunction mild to moderate mitral regurgitation. -Follows with cardiology as an outpatient, per patient she has been instructed to reduce her Lasix and isosorbide mononitrate, this was due to of improved BP control as well as rising creatinine in the outpatient setting. -BNP significantly elevated to 21,000, previously 8049, troponin 43 initially 49 on recheck. D-dimer was significantly at 7410. -Underlying history of CAD/CO with prior PCI in 2019, ASA was discontinued on prior admission due to suspected blood loss anemia in 05/2024, cardiology as an outpatient did not resume this as of now. Plan: Continue Lasix 40 mg IV daily Strict I's and O's and daily weights Cardiology consult appreciated Repeat echocardiogram ordered and pending Continue telemetry monitoring Resume home medications including clonidine, isosorbide mononitrate twice daily, metoprolol tartrate twice daily Assessment & Plan (12/29/2024 4:33 PM EST): - Presented with acute pulmonary edema and hypertensive emergency secondary to CHF exacerbation, patient has underlying history of grade 2 diastolic dysfunction based on last echocardiogram performed 05/2024 revealed LVEF 50 to 55%, grade 2 diastolic dysfunction mild to moderate mitral regurgitation. -Follows with cardiology as an outpatient, per patient she has been instructed to reduce her Lasix and isosorbide mononitrate, this was due to of improved BP control as well as rising creatinine in the outpatient setting. -BNP significantly elevated to 21,000, previously 8049, troponin 43 initially 49 on recheck. D-dimer was significantly at 7410. -Underlying history of CAD/CO with prior PCI in 2019, ASA was discontinued on prior admission due to suspected blood loss anemia in 05/2024, cardiology as an outpatient did not resume this as of now. Plan: Continue Lasix 40 mg IV daily Strict I's and O's and daily weights Cardiology consult appreciated Repeat echocardiogram ordered and pending Continue telemetry monitoring Resume home medications including clonidine, isosorbide mononitrate twice daily, metoprolol tartrate twice daily Assessment & Plan (06/11/2024 9:41 AM EDT): [...] function Symptomatic anemia 06/07/2024 Assessment & Plan (2025 10:15 AM EST): Plan: - Has had prior admission 05/2024, has C-scope and EGD performed which did not reveal active bleeding at that time. She was symptomatically anemic with a hemoglobin of 5.7. Ultimately aspirin was discontinued due to suspected GI loss. 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 She was symptomatically anemic with a hemoglobin of 5.7. Ultimately aspirin was discontinued due to suspected GI loss. 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 -Hemoglobin currently 8.7 in the setting of heart failure exacerbation and edema, suspect this to be mildly dilutional Plan: Repeat CBC in the a.m. 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 -Serum creatinine 3.20 BUN 50. Suspect secondary to hypertensive emergency, CHF exacerbation and IV diuretics -will transition to oral diuretic today, not held given risk of decompensation Assessment & Plan (12/29/2024 4:45 PM EST): -Underlying history of CKD stage IIIb-IV, previously creatinine was noted to be around 2.3-2.7, unclear outpatient baseline at this time -Follows with nephrology as an outpatient, however records are unavailable at this time. -Serum creatinine 3.00 BUN 47. Suspect secondary to hypertensive emergency, CHF exacerbation. Plan: Continue monitoring renal function, would continue Lasix at this time suspect CHF exacerbation to be contributing. Nephrology consulted recs appreciated Assessment & Plan (06/11/2024 9:41 AM EDT): [...] knee 06/07/2024 Acute hypoxic respiratory failure 06/07/2024 Assessment & Plan (12/30/2024 12:15 AM EST): -Has resolved, currently on room air presenting with acute pulmonary edema and heart failure exacerbation. -CXR did reveal pulmonary edema with cardiomegaly, questionable left lower lobe infiltrate pneumonia/aspiration versus atelectasis -Given acute presentation of severely elevated BP, pulmonary edema, prior history of CHF with grade 2 diastolic dysfunction suspected primary presentation to be of cardiac origin has had similar presentation in 05/2024. Differential does include VTE, pneumonia as well. 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 Ultrasounds bilateral extremities were negative for DVT, as patient is currently on room air, improved with BP control, despite elevated D-dimer doubt this to be acute PE/VTE event. -CXR revealed possible infiltrate however patient is afebrile at this time, no reported cough. -COVID-19, influenza A and B were negative on testing Plan: Recommend echocardiogram to assess RV function, unable to perform CT PE study at this time due to renal function, spoke with radiology unable to perform VQ scan given CXR was abnormal and will be indeterminant. Check Pro-Ortiz, monitor off antibiotics O2 has been DC'd, continue monitoring for hypoxia. Addendum: Pro-Ortiz was elevated initiated CAP Coverage with ceftriaxone azithromycin. Encounters Date Type Department Care Team Description 01/07/2025 Home Care Visit [facility] [address] [place] [phone] Sophia Hernandez RN NON ADMIT HOME HEALTH VISIT 01/05/2025 Home Care Visit [facility] [address] [place] [phone] Sophia Hernandez RN TELEPHONE ENCOUNTER 01/05/2025 Home Care Visit [facility] [address] [place] [phone] Sophia Hernandez RN TELEPHONE ENCOUNTER 01/04/2025 Home Care Visit [facility] [address] [place] [phone] Angella Wen, GALDINO CASE COMMUNICATION 12/30/2024 Orders Only [facility] [address] [place] [phone] Homehealth, Interface ProviderMD 12/29/2024 9:25 AM EST - 01/02/2025 4:34 PM EST Hospital Encounter [facility] [address] [place] [phone] Jose Orellana MD Grachev, Maksim, DO McCracken, Helena C, DO Arepally, Sandeep, MD Israeli, Diana A, DO Barbosa-Angles, Brianna R, DO, MPH Discharge Disposition: Home-Health Care Svc 12/29/2024 Procedure Pass [facility] [address] [place] [address] from Last 3 Months Social History Tobacco [...] got money to buy more. Never True 12/29/2024 Within the past 6 months the food we bought just didn't last and we didn't have enough money to get more. Never True Residential Stability Answer Date Recor ded What is your housing situation today? I have finesse sing 12/29/2024 How many times have you move d in the past 12 months? Zero (I did not move) 12/29/2024 Paying for Meds Answer Date Recorded Do you have trouble paying for medicines? No 12/29/2024 Paying Utility Bills Answer Date Record ed Do you have trouble paying your heating or elect ricity bill? No 12/29/2024 Transportation Answer Date Recorded Has the lack of transportati on kept you from medical appointments or from getting medications? No 12/29/2024 Digital Access Answer Date Recorded No 12/29/2024 Yes 12/29/2024 Do you have reliable internet access at home? Ye s 12/29/2024 Do you have a device (e.g., phone, tablet, computer) with a working camera? Yes 12/29/2024 Intimate Partner Violence Answer Date R ecorded Are you denied basic needs s uch as food, clothing, or medical care? No 12/29/2024 In the past 12 months have y ou been in a relationship with a person who hurts, threatens, or tries to control you? No 12/29/2024 Are you denied basic needs s uch as food, clothing, or medical care? No 12/29/2024 In the past 12 months have y ou been in a relationship with a person who hurts, threatens, or tries to control you? No 12/29/2024 Comments Unknown Sex and Gender Information Value Date Recorded Sex Assigned at Female 04/15/2019 3:59 PM EST Legal Sex Female 10:01 PM EDT Gender Identity Female 04/15/2019 3:59 PM EST Sexual Orientation Straight 04/15/2019 3: 59 PM EST Last Filed Vital Signs Vital Sign Reading Time Taken Comments Blood Pressure 174/96 01/02/2025 12:40 PM EST Pulse 74 01/02/2025 12:40 PM EST Temperature 36.5 C (97.7 F) 01/02/2025 12:40 PM EST Respiratory Rate 20 01/02/2025 12:40 PM EST Oxygen Saturation 95% 01/02/2025 12:40 PM EST Inhaled Oxygen Concentration 30% 12/30/2024 5 :13 AM EST Weight 75.5 kg (166 lb 6.4 oz) 01/02/2025 9:39 A M EST Height 172.7 cm (5' 7.99 ) 01/02/2025 9:39 AM ES T Body Mass Index 25.31 01/02/2025 9:39 AM EST Plan of Treatment Upcoming Encounters Date Type Department Care Team (Late st Contact Info) Description 04/07/2025 12:00 PM EST Office Visit [facility] [address] [place] [phone] Naun Duran DO [address] [place] [address] [email or web address] Health Maintenance Due Date Last Done Comments Adult Td,Tdap Booster 1950 DEPRESSION SCREENING 1963 HEPATITIS C SCREENING [...] 2024 03/22/2022, 02/24/2021, 06/02/2020, Additional history exists HEMOGLOBIN A1C 06/30/2025 12/31/2024 CREATININE LEVEL 01/02/2026 01/02/2025, , 12/31/2024, Additional history exists COLONOSCOPY 06/12/2034 06/12/2024 COLORECTAL CANCER SCREENING 06/12/2034 SMOKING STATUS SCREENING (Once After 26 Yrs) Completed 12/30/2024 HEPATITIS A VACCINES Aged Out No long [...] Procedure Name Priority Date/Time Associated Diagnosis Comments US KIDNEY(S) AND BLADDER Required for discharge 01/02/2025 12:07 PM EST LFTS (HEPATIC PANEL) Routine 01/02/2025 7:19 AM EST CBC Routine 01/02/2025 7:19 AM EST MAGNESIUM Routine 01/02/2025 7:19 AM EST BASIC METABOLIC PANEL (BMP) Routine 01/02/2025 7:19 AM EST BASIC METABOLIC PANEL (BMP) Routine 2025 6:24 AM EST LAB ADD-ON Routine 12/31/2024 10:25 AM EST HEMOGLOBIN A1C Routine 12/31/2024 6:33 AM EST CBC AND DIFFERENTIAL Routine 12/31/2024 6:33 AM EST PHOSPHORUS Routine 12/31/2024 6:33 AM EST MAGNESIUM Routine 12/31/2024 6:33 AM EST CBC AND DIFFERENTIAL Routine 12/31/2024 6:33 AM EST BASIC METABOLIC PANEL (BMP) Routine 12/31/2024 6:33 AM EST MRSA PCR SCREEN Routine 12/30/2024 8:59 AM EST TTE COMPREHENSIVE Routine 12/30/2024 8:3 4 AM EST Heart failure, unspecified HF chronicity, unspecified heart failure type Acute on chronic heart failure, unspecified heart failure type Acute pulmonary edema CBC AND DIFFERENTIAL Routine 12/30/2024 4:34 AM EST PT-INR Routine 12/30/2024 4:34 AM EST CBC AND DIFFERENTIAL Routine 12/30/2024 4:34 AM EST PHOSPHORUS Routine 12/30/2024 4:34 AM EST MAGNESIUM Routine 12/30/2024 4:34 AM EST COMPREHENSIVE METABOLIC PANEL (CMP) Routine 12/30/2024 4:34 AM EST ECG 12-LEAD Routine 12/30/2024 2:25 AM EST PROCALCITONIN STAT 12/29/2024 5:04 PM EST US LOWER EXTREMITY VEINS DUPLEX COMPLETE (BILATERAL) Routine 12/29/2024 1:20 PM EST Edema, unspecified type TROPONIN STAT 12/29/2024 10:49 AM EST SARS-COV-2, INFLUENZA A/B, PCR HANNAH STAT 12/29/2024 9:53 AM EST ARTERIAL BLOOD GAS STAT 12/29/2024 9: 53 AM EST COVID PANDEMIC RESPIRATORY VIRAL ORDER (PRO) STAT 12/29/2024 9:53 AM EST ECG 12-LEAD STAT 12/29/2024 9:52 AM EST VENOUS BLOOD GAS STAT 12/29/2024 9:49 AM EST CBC AND DIFFERENTIAL STAT 12/29/2024 9:49 AM EST D-DIMER STAT 12/29/2024 9:49 AM EST NT-PROBNP STAT 12/29/2024 9:49 AM EST TROPONIN STAT 12/29/2024 9:49 AM EST PT-INR STAT 12/29/2024 9:49 AM EST PHOSPHORUS STAT 12/29/2024 9:49 AM EST MAGNESIUM STAT 12/29/2024 9:49 AM EST LFTS (HEPATIC PANEL) STAT 12/29/2024 9:49 AM EST BASIC METABOLIC PANEL (BMP) STAT 12/29/2024 9:49 AM EST CBC AND DIFFERENTIAL STAT 12/29/2024 9:49 AM EST XR CHEST PORTABLE Routine 12/29/2024 9:4 7 AM EST ENDOSCOPY, COLON 06/12/2024 7:48 AM EDT from Last 3 Months or Most Recently Relevant to Health Maintenance Results * US KIDNEY(S) AND BLADDER (01/02/2025 12:07 PM EST) Anatomical Region Laterality Modality Abdomen, Kidney Ultrasound 01/02/2025 12:1 1 PM EST Impressions 01/02/2025 12:14 PM EST 1. Echogenic renal parenchyma, likely representing medical renal disease. 2. No hydronephrosis. 3. Bilateral renal cysts. Narrative 01/02/2025 12:14 PM EST US KIDNEY(S) AND BLADDER Referring clinician's provided indication for this examination in [facility]: Renal failure, acute; Renal failure, chronic TECHNIQUE: Kidney and bladder ultrasound. COMPARISON: US KIDNEYS AND BLADDER FINDINGS: Right Kidney: Size: 9.3 cm Echogenic renal parenchyma. No hydronephrosis or shadowing renal stone. 1.5 x 1.8 x 1.6 cm right upper pole cyst. Left Kidney: Size: 11.3 cm Echogenic renal parenchyma. No hydronephrosis or shadowing renal stone. 0.9 x 0.4 x 0.5 cm cyst in the interpolar kidney. Bladder: No intraluminal filling defect. Procedure Note Sonia Priest MD - 01/02/2025 US KIDNEY(S) AND BLADDER Referring clinician's provided indication for this examination in [facility]:Renal failure, acute; Renal failure, chronic TECHNIQUE: Kidney and bladder ultrasound. COMPARISON: US KIDNEYS AND BLADDER FINDINGS: Right Kidney: Size: 9.3 cm Echogenic renal parenchyma. No hydronephrosis or shadowing renal stone.1.5 x 1.8 x 1.6 cm right upper pole cyst. Left Kidney: Size: 11.3 cm Echogenic renal parenchyma. No hydronephrosis or shadowing renal stone.0.9 x 0.4 x 0.5 cm cyst in the interpolar kidney. Bladder: No intraluminal filling defect. IMPRESSION: 1. Echogenic renal parenchyma, likely representing medical renaldisease. 2. No hydronephrosis. 3. Bilateral renal cysts. Gela Preciado DO, MPH IMG US RENAL Final Result * (ABNORMAL) Hepatic Panel (LFTs) (01/02/2025 7:19 AM EST) Only the most recent of2 resultswithin the time period is included. AST 11 <33 U/L 01/02/2025 8:14 AM [facility] ALT 14 <34 U/L 01/02/2025 8:14 AM [facility] Alkaline Phosphatase 123 40 - 130 U/L 01/02/2025 8:14 AM [facility] Bilirubin, Total 0.4 0.0 - 1.2 mg/dL 01/02/2025 8:14 AM [facility] Bilirubin, Direct 0.1 0.0 - 0.3 mg/dL 01/02/2025 8:14 AM [facility] Total Protein 7.3 6.4 - 8.3 g/dL 01/02/2025 8:14 AM [facility] Albumin 3.4(L) 3.5 - 5.2 g/dL 01/02/2025 8:14 AM [facility] Globulin 3.9 1.9 - 4.1 g/dL 01/02/2025 8:14 AM [facility] Blood (Blood) Venipuncture / Unknown 01/02/2025 7:19 AM EST 01/02/2025 7:35 AM EST us Nakita A Micronesian DO LAB BLOOD BKR ORDERABLES Jenny l Result [address] [address] * (ABNORMAL) CBC (01/02/2025 7:19 AM EST) WBC 6.75 4.00 - 11.00 K/uL 01/02/2025 7:50 AM [facility] RBC 3.01(L) 4.00 - 5.20 M/uL 01/02/2025 7:50 AM [facility] Hemoglobin 8.5(L) 12.0 - 16.0 g/dL 01/02/2025 7:50 AM [facility] Hematocrit 29.4(L) 36.0 - 46.0 % 01/02/2025 7:50 AM [facility] MCV 97.7 80.0 - 100.0 fL 01/02/2025 7:50 AM [facility] MCH 28.2 27.0 - 31.0 pg 01/02/2025 7:50 AM [facility] MCHC 28.9(L) 32.0 - 36.0 g/dL 01/02/2025 7:50 AM [facility] PLT 331 150 - 450 K/uL 01/02/2025 7:50 AM [facility] MPV 10.6 8.4 - 12.0 fL 01/02/2025 7:50 AM [facility] RDW-CV 15.8(H) 11.5 - 14.5 % 01/02/2025 7:50 AM [facility] Absolute NRBC 0.02(H) <=0.00 K cells/uL 01/02/2025 7:50 AM [facility] NRBC 0.3(H) <=0.0 /100 WBCs 01/02/2025 7:50 AM [facility] Blood (Blood) Venipuncture / Unknown 01/02/2025 7:19 AM EST 01/02/2025 7:35 AM EST us Nakita De Santiago DO LAB BLOOD BKR ORDERABLES Jenny l Result Performing Organization Address City/State/[facility] Co de Phone Number [address] [address] * Magnesium (01/02/2025 7:19 AM EST) Only the most recent of4 resultswithin the time period is included. Magnesium 2.3 1.7 - 2.6 mg/dL 01/02/2025 8:14 AM [facility] Blood (Blood) Venipuncture / Unknown 01/02/2025 7:19 AM EST 01/02/2025 7:35 AM EST [facility] LAB BLOOD BKR ORDERABLES Jenny l Result Performing Organization Address City/[facility]/ZIP Co de Phone Number [address] [phone] * (ABNORMAL) Basic Metabolic Panel (BMP) (01/02/2025 7:19 AM EST) Only the most recent of4 resultswithin the time period is included. Sodium 143 136 - 145 mmol/L 01/02/2025 8:14 AM [facility] Potassium 4.1 3.4 - 5.1 mmol/L 01/02/2025 8:14 AM [facility] Chloride 105 98 - 107 mmol/L 01/02/2025 8:14 AM [facility] CO2 24 20 - 31 mmol/L 01/02/2025 8:14 AM [facility] Anion Gap 14 3 - 17 mmol/L 01/02/2025 8:14 AM [facility] BUN 48(H) 6 - 23 mg/dL 01/02/2025 8:14 AM [facility] Creatinine 3.20(H) 0.50 - 1.00 mg/dL 01/02/2025 8:14 AM [facility] eGFR 15(L) >59 mL/min/1.7 3m2 01/02/2025 8:14 AM [facility] Comment:Estimated glomerular filtration rate calculated using the CKD-EPI refit equation. Glucose 125(H) 70 - 99 mg/dL 01/02/2025 8:14 AM [facility] Calcium 9.5 8.5 - 10.5 mg/dL 01/02/2025 8:14 AM [facility] Blood (Blood) Venipuncture / Unknown 01/02/2025 7:19 AM EST 01/02/2025 7:35 AM EST [facility] LAB BLOOD BKR ORDERABLES Jenny l Result Performing Organization Address City/[facility]/ZIP Co de Phone Number [address] [address] * Lab Add-On (12/31/2024 10:25 AM EST) Specimen Date/Time 12/3112/31/2024 10:54 AM [facility] Test Requested A1C 12/31/2024 10:54 AM [facility] Specimen Description 12/31/2024 10:54 AM [facility] Comments 12/31/2024 10:54 AM [facility] Was this request processed? Yes 12/31/2024 10:54 AM [facility] Other (Other) 12/31/2024 10: 25 AM EST 12/31/2024 10:25 AM EST us Christa Mcclure PA-C, MS LAB GENERAL ORDER RACHEAL Final Result [address] [address] * (ABNORMAL) CBC and Differential (12/31/2024 6:33 AM EST) Only the most recent of3 resultswithin the time period is included. WBC 6.26 4.00 - 11.00 K/uL 12/31/2024 7:03 AM [facility] RBC 2.89(L) 4.00 - 5.20 M/uL 12/31/2024 7:03 AM [facility] Hemoglobin 8.1(L) 12.0 - 16.0 g/dL 12/31/2024 7:03 AM [facility] Hematocrit 29.0(L) 36.0 - 46.0 % 12/31/2024 7:03 AM [facility] MCV 100.3(H) 80.0 - 100.0 fL 12/31/2024 7:03 AM [facility] MCH 28.0 27.0 - 31.0 pg 12/31/2024 7:03 AM [facility] MCHC 27.9(L) 32.0 - 36.0 g/dL 12/31/2024 7:03 AM [facility] MPV 10.6 8.4 - 12.0 fL 12/31/2024 7:03 AM [facility] RDW-CV 16.0(H) 11.5 - 14.5 % 12/31/2024 7:03 AM [facility] PLT 298 150 - 450 K/uL 12/31/2024 7:03 AM [facility] Neutrophils 65.1 % 12/31/2024 7:03 AM [facility] Lymphocytes 20.8 % 12/31/2024 7:03 AM [facility] Monocytes 10.2 % 12/31/2024 7:03 AM [facility] Eosinophils 2.6 % 12/31/2024 7:03 AM [facility] Basophils 0.8 % 12/31/2024 7:03 AM [facility] Imm Grans 0.5 % 12/31/2024 7:03 AM [facility] NRBC 0.3(H) <=0.0 /100 WBCs 12/31/2024 7:03 AM [facility] Absolute Neutrophils 4.08 1.92 - 7.60 K/uL 12/31/2024 7:03 AM [facility] Absolute Lymphocytes 1.30 0.72 - 4.10 K/uL 12/31/2024 7:03 AM [facility] Absolute Monocytes 0.64 0.16 - 1.10 K/uL 12/31/2024 7:03 AM [facility] Absolute Eosinophils 0.16 0.00 - 0.50 K/uL 12/31/2024 7:03 AM [facility] Absolute Basophils 0.05 0.00 - 0.15 K/uL 12/31/2024 7:03 AM [facility] Absolute Imm Grans 0.03 0.00 - 0.09 K/uL 12/31/2024 7:03 AM [facility] Absolute NRBC 0.02(H) <=0.00 K cells/uL 12/31/2024 7:03 AM [facility] Absolute Neutrophils 4.08 1.92 - 7.60 K/uL 12/31/2024 7:03 AM [facility] Comment:Automated cell count . Manual ANC may differ if performed. Diff Type Auto 12/31/2024 7:03 AM [facility] Blood (Blood) Venipuncture / Unknown 12/31/2024 6:33 AM EST 12/31/2024 6:48 AM EST Fan Cameron [employer] LAB BLOOD BKR ORDERABLES Final R [facility] Performing Organization Address [facility] Co de Phone Number [address] [address] * Phosphorus (12/31/2024 6:33 AM EST) Only the most recent of3 resultswithin the time period is included. Phosphorus 4.2 2.5 - 4.5 mg/dL 12/31/2024 7:41 AM [facility] Blood (Blood) Venipuncture / Unknown 12/31/2024 6:33 AM EST 12/31/2024 6:48 AM EST Fan Cameron NP LAB BLOOD BKR ORDERABLES Final R [facility] Performing Organization Address [facility] Co de Phone Number [address] [address] * (ABNORMAL) Hemoglobin A1c (12/31/2024 6:33 AM EST) Pathologist [facility] Hemoglobin A1c 6.1(H) 4.3 - 5.6 % 12/31/2024 11:32 AM [facility] Calculated Mean Blood Glucose 128 mg/dL 12/31/2024 11:32 AM [facility] Comment:There is no establis [facility] normal range for the Estimated Average Glucose (EAG). However, a HbA1c of 5.6% (upper limit of normal) represents an EAG of 114 mg/dL. The diagnostic HbA1c level for diabetes is greater than or equal to 6.5%, which represents an EAG greater than or equal to 140 mg/dL. Blood (Blood) Venipuncture / Unknown 12/31/2024 6:33 AM EST 12/31/2024 6:48 AM EST Christa Mcclure PA-C, MS LAB BLOOD BKR ORD ERABLES Final Result [address] [address] * MRSA NASAL SCREEN, PCR (12/30/2024 8:59 AM EST) [facility] MRSA PCR Screen Negative for MRSA Negative for MRSA 12/30/2024 10:41 AM EST [facility] Swab (Anterior Nares) Non-Blood Collection / Unknown 12/30/2024 8:59 AM EST 12/30/2024 9:22 AM EST us Daysi Mckenzie PA-C LAB GENERAL ORDERABLES Final Result Performing Organization Address City/[facility]/ZIP Co de Phone Number [address] [address] * TTE COMPREHENSIVE (12/30/2024 8:34 AM EST) [facility] Right Ventricle Peak Systolic Pressure 41 mmHg Ejection Fraction 50 50 - 75 % GLS 13.6 % Left Ventricle Ea Lateral Wave Speed 5.9 cm/s Right Ventricle TAPSE 21 >=17 mm MV E/E' Tissue Velocity Lateral 20.51 Right Ventricle Pulse Doppler S Wave 12.0 >=9.5 cm/s Aortic Valve Peak Velocity 151.0 m/s Left Ventricle E Wave Speed 121.0 cm/s Left Ventricle A Wave Speed 62.1 cm/s MV E/A ratio 1.9 Left Ventricle Ea Septal Wave Speed 6.6 cm/s MV E/e' septal 18.33 Left Ventricle E/e' Average 19.4 Left Atrial Volume 94 mL Left Ventricular Outflow Tract Diameter 2.2 cm Tricuspid Valve Peak Velocity 3.1 m/s Right Atrium Pressure Estimated 3 mmHg Right Ventricle to Right Atrium Pressure Gradient 38 mmHg Right Ventricle Peak Systolic Pressure (Assuming RAP 10) 48 mmHg MGB CV ECHO TV RVSP (ASSUMING RAP OF 5) 43 mmHg RVSP (Exclusive of RAP) 38 mmHg Echo E/Ea 18.33 Anatomical Region Laterality Modality Heart Ultrasound Narrative 12/30/2024 10:25 AM EST Images from the original result were not included. Mild LV dilation with mild global LV dysfunction EF 45 to 50%. Moderate to severe mitral regurgitation very eccentric hugging the posterior lateral wall. Not sure what there is much regurgitation the valve is thickened but it does not appear to prolapse. Aortic valve is thickened but normal in function. Normal RV size and function. Moderate to severe left atrial enlargement. Mild pulm hypertension estimated 41 mmHg. Compared to prior study from May 2024, LV size is the same. The mitral regurgitation may be more severe. LV function this similar. Left Ventricle The left ventricle is mildly dilated. There is normal wall thickness. The LV ejection fraction is 50%. Average global longitudinal strain (GLS) is - 13.6%. There is abnormal diastolic function. There is Grade II diastolic dysfunction. The E/A ratio is 1.9. The e' septal wave velocity is 6.6 cm/s. The e' lateral wave velocity is 5.9 cm/s. The average E/e' ratio is 19.4. Right Ventricle The right ventricle is normal in size. There is normal right ventricular systolic function. TAPSE is 21 mm. RV S' wave is 12.0 cm/s. Left Atrium The left atrium is severely dilated. Right Atrium The right atrium is normal in size. The IVC is normal in size with normal inspiratory collapse. Mitral Valve There is mild mitral valve thickening. There is no mitral stenosis. There is moderate mitral regurgitation with an eccentrically directed jet. Tricuspid Valve The tricuspid valve appears normal. There is no tricuspid stenosis. There is mild tricuspid regurgitation. The RV systolic pressure was calculated at 41 mmHg (using TR peak velocity of 3.1 m/s and assuming an RA pressure of 3 mmHg). Aortic Valve The aortic valve is tricuspid. There is mild leaflet thickening. There is no aortic stenosis. There is trace aortic regurgitation. The visualized portions of the thoracic aorta appear normal in size. Pulmonic Valve The pulmonic valve appears normal. There is no pulmonic stenosis. There is trace pulmonic regurgitation. Pericardium The pericardium appears normal. There is a left pleural effusion. General Findings The image quality was adequate. Strain performed. Technique(s) used in the evaluation: Color flow Doppler and Spectral Doppler. The predominant rhythm during the study was sinus. Comparison Findings Compared to prior TTE on 06/09/2024, IAS/IVS The interatrial septum appears normal. There is no evidence of patent foramen ovale (PFO). us Alexander Amaya DO CV ECHO ORDERABLES Final Resul t * (ABNORMAL) Comprehensive Metabolic Panel (CMP) (12/30/2024 4:34 AM EST) Sodium 144 136 - 145 mmol/L 12/30/2024 5:55 AM [facility] Potassium 4.4 3.4 - 5.1 mmol/L 12/30/2024 5:55 AM [facility] Chloride 110(H) 98 - 107 mmol/L 12/30/2024 5:55 AM [facility] CO2 21 20 - 31 mmol/L 12/30/2024 5:55 AM [facility] Anion Gap 13 3 - 17 mmol/L 12/30/2024 5:55 AM [facility] BUN 48(H) 6 - 23 mg/dL 12/30/2024 5:55 AM [facility] Creatinine 2.60(H) 0.50 - 1.00 mg/dL 12/30/2024 5:55 AM [facility] eGFR 19(L) >59 mL/min/1.7 3m2 12/30/2024 5:55 AM [facility] Comment:Estimated glomerular filtration rate calculated using the CKD-EPI refit equation. Glucose 128(H) 70 - 99 mg/dL 12/30/2024 5:55 AM [facility] Calcium 8.8 8.5 - 10.5 mg/dL 12/30/2024 5:55 AM [facility] AST 43(H) <33 U/L 12/30/2024 5:55 AM [facility] ALT 30 <34 U/L 12/30/2024 5:55 AM [facility] Alkaline Phosphatase 148(H) 40 - 130 U/L 12/30/2024 5:55 AM [facility] Bilirubin, Total 0.2 0.0 - 1.2 mg/dL 12/30/2024 5:55 AM [facility] Total Protein 6.5 6.4 - 8.3 g/dL 12/30/2024 5:55 AM [facility] Albumin 3.0(L) 3.5 - 5.2 g/dL 12/30/2024 5:55 AM EST [facility] Globulin 3.5 1.9 - 4.1 g/dL 12/30/2024 5:55 AM [facility] Blood (Blood) Venipuncture / Unknown 12/30/2024 4:34 AM EST 12/30/2024 5:10 AM EST [facility] DO LAB BLOOD BKR ORDERABLES Final Result Performing Organization Address [facility] Co de Phone Number [address] [address] * (ABNORMAL) PT-INR (12/30/2024 4:34 AM EST) Only the most recent of2 resultswithin the time period is included. PT 14.4(H) 10.0 - 13.0 sec 12/30/2024 5:19 AM [facility] INR 1.2(H) 0.9 - 1.1 12/30/2024 5:19 AM [facility] Comment:Therapeutic Range 2. 0 - 3.5 Blood (Blood) Venipuncture / Unknown 12/30/2024 4:34 AM EST 12/30/2024 5:10 AM EST us Alexander CrowdOpticche DO LAB BLOOD BKR ORDERABLES Final Result Performing Organization Address [facility] Co de Phone Number [address] [address] * ECG 12-LEAD (12/30/2024 2:25 AM EST) Only the most recent of2 resultswithin the time period is included. Ventricular Rate EKG/MIN 132 BPM [facility] Atrial Rate 132 BPM [facility] LA Interval 138 ms [facility] QRS Duration 76 ms [facility] QT Interval 284 ms [facility] QTC Interval 420 ms [facility] P [place] 59 degrees [facility] R Wave [place] 39 degrees [facility] T Wave [place] 95 degrees [facility] 12/30/2024 2:25 AM EST 12/30/2024 12:05 PM EST Narrative [facility] - 12/30/2024 12:05 PM EST Poor data quality, interpretation may be adversely affected Sinus tachycardia Cannot rule out Anterior infarct (cited on or before 08-Jun-2024) Abnormal ECG When compared with ECG of 29-Dec-2024 09:52, No significant change was found Confirmed by Yomi Dawn ([id number]) on 12/30/2024 12:05:57 PM us Pranay Rizo MD ECG ORDERABLES Final Result [facility] * (ABNORMAL) Procalcitonin (12/29/2024 5:04 PM EST) Procalcitonin 1.73(H) 0.00 - 0.25 ng/mL 12/29/2024 6:12 PM EST [facility] Comment: <=0.25 ng/mL: Bacterial pneumonia is unlikely. <0.5 ng/mL: Low likelihood of systemic bacterial infection / sepsis. Localized infection is possible. 0.5-2.0 ng/mL: Systemic bacterial infection / sepsis is possible, but other conditions can induce PCT levels in this range as well (e.g., pancreatitis, severe trauma, circulatory shock, surgery, marti, inhalation injury). >2.0 ng/mL: Systemic bacterial infection / sepsis is likely. Additional information can be found in the [facility] Procalcitonin Guidelines, available in the Document Link. Blood (Blood) Venipuncture / Unknown 12/29/2024 5:04 PM EST 12/29/2024 5:11 PM EST us Alexander Amaya DO LAB BLOOD BKR ORDERABLES Final Result Performing Organization Address [facility]/ZIP Co de Phone Number [facility] [address] [place] [address] * US Lower Extremity Veins Duplex Complete (Bilateral) (12/29/2024 1:20 PM EST) Anatomical Region Laterality Modality Ultrasound 12/29/2024 2:01 PM EST Impressions 12/29/2024 2:20 PM EST 1. No deep vein thrombosis in the visualized veins of either lower extremity. 2. Bilateral Horvath's cysts measuring 4.5 cm on the right and 3.1 cm on the left. 3. Subcutaneous soft tissue edema within bilateral calf. ATTESTATION: IAnne as teaching physician, have reviewed the images for this case and if necessary edited the report originally created by Carson Izaguirre. Narrative 12/29/2024 2:20 PM EST US LOWER EXTREMITY VEINS DUPLEX COMPLETE (BILATERAL) Referring clinician's provided indication for this examination in Epic: Edema. TECHNIQUE: Lower extremity venous ultrasound with color and spectral Doppler. COMPARISON: None. FINDINGS: Right lower extremity Common femoral vein: Normal compressibility and flow characteristics. Femoral vein: Normal compressibility and flow characteristics. Proximal profunda femoral vein: Normal compressibility. Popliteal vein: Normal compressibility and flow characteristics. Posterior tibial veins: Normal compressibility with flow detected. Peroneal veins: Normal compressibility with flow detected. Gastrocnemius veins: Normal compressibility. Great saphenous vein: Normal compressibility at the saphenofemoral junction. Within the right popliteal fossa there is a 4.5 x 0.5 x 2.1 cm fluid collection. There is subcutaneous soft tissue edema within the right calf. Left lower extremity Common femoral vein: Normal compressibility and flow characteristics. Femoral vein: Normal compressibility and flow characteristics. Proximal profunda femoral vein: Normal compressibility. Popliteal vein: Normal compressibility and flow characteristics. Posterior tibial veins: Normal compressibility with flow detected. Peroneal veins: Normal compressibility with flow detected. Gastrocnemius veins: Normal compressibility. Great saphenous vein: Normal compressibility at the saphenofemoral junction. Within the left popliteal fossa there is a 3.1 x 0.6 x 1.0 cm fluid collection. There is subcutaneous soft tissue edema within the left calf and popliteal fossa. Procedure Note Anne Tucker MD - 12/29/2024 US LOWER EXTREMITY VEINS DUPLEX COMPLETE (BILATERAL) Referring clinician's provided indication for this examination in Epic:Edema. TECHNIQUE: Lower extremity venous ultrasound with color and spectralDoppler. COMPARISON: None. FINDINGS: Right lower extremity Common femoral vein: Normal compressibility and flow characteristics. Femoral vein: Normal compressibility and flow characteristics. Proximal profunda femoral vein: Normal compressibility. Popliteal vein: Normal compressibility and flow characteristics. Posterior tibial veins: Normal compressibility with flow detected. Peroneal veins: Normal compressibility with flow detected. Gastrocnemius veins: Normal compressibility. Great saphenous vein: Normal compressibility at the saphenofemoraljunction. Within the right popliteal fossa there is a 4.5 x 0.5 x 2.1 cm fluidcollection. There is subcutaneous soft tissue edema within the rightcalf. Left lower extremity Common femoral vein: Normal compressibility and flow characteristics. Femoral vein: Normal compressibility and flow characteristics. Proximal profunda femoral vein: Normal compressibility. Popliteal vein: Normal compressibility and flow characteristics. Posterior tibial veins: Normal compressibility with flow detected. Peroneal veins: Normal compressibility with flow detected. Gastrocnemius veins: Normal compressibility. Great saphenous vein: Normal compressibility at the saphenofemoraljunction. Within the left popliteal fossa there is a 3.1 x 0.6 x 1.0 cm fluidcollection. There is subcutaneous soft tissue edema within the left calfand popliteal fossa. IMPRESSION: 1. No deep vein thrombosis in the visualized veins of either lowerextremity. 2. Bilateral Horvath's cysts measuring 4.5 cm on the right and 3.1 cm onthe left. 3. Subcutaneous soft tissue edema within bilateral calf. ATTESTATION: I, Anne Tucker as teaching physician, have reviewed theimages for this case and if necessary edited the report originally createdby Carson Izaguirre. us Jose Orellana MD US VASCULAR F inal Result * (ABNORMAL) Troponin (12/29/2024 10:49 AM EST) Only the most recent of2 resultswithin the time period is included. Troponin-T HS Gen5 49(H) 0 - 9 ng/L 12/29/2024 11:17 AM [facility] Blood (Blood) Venipuncture / Unknown 12/29/2024 10:49 AM EST 12/29/2024 10:54 AM EST us Jose Orellana MD LAB BLOOD BKR ORD ERABLES Final Result Performing Organization Address [facility] Co de Phone Number [address] [address] * SARS-CoV-2, INFLUENZA A/B, PCR (12/29/2024 9:53 AM EST) [facility] SARS-CoV-2 RNA PCR Not Detected Not Detected 12/29/2024 10:38 AM [facility] Influenza A PCR Not Detected Not Detected 12/29/2024 10:38 AM [facility] Influenza B PCR Not Detected Not Detected 12/29/2024 10:38 AM [facility] Swab (Nasopharynx, Bilateral) Non-Blood Collection / Unknown 12/29/2024 9:53 AM EST 12/29/2024 10:02 AM EST us Jose Orellana MD LAB GENERAL ORDER RACHEAL Final Result Performing Organization Address [facility] Co de Phone Number [address] [address] * Symptomatic Respiratory Virus Testing Panel (ED/IP) (12/29/2024 9:53 AM EST) Swab (Nasopharynx, Bilateral) Non-Blood Collection / Unknown 12/29/2024 9:53 AM EST 12/29/2024 10:02 AM EST us Jose Orellana MD LAB GENERAL ORDER RACHEAL Final Result Performing Organization Address [facility] Co de Phone Number [address] [address] * (ABNORMAL) Arterial Blood Gas (ABG) (12/29/2024 9:53 AM EST) Pathologist [facility] FiO2 50 % 12/29/2024 10:02 AM [facility] pH, Arterial 7.28(L) 7.35 - 7.45 12/29/2024 10:02 AM [facility] pCO2, Arterial 43 35 - 45 mm[Hg] 12/29/2024 10:02 AM [facility] pO2, Arterial 107(H) 80 - 105 mm[Hg] 12/29/2024 10:02 AM [facility] Bicarbonate (HCO3) 20(L) 22 - 26 mmol/L 12/29/2024 10:02 AM [facility] Base Excess -6.8(L) -3.0 - 3.0 mmol/L 12/29/2024 10:02 AM [facility] Oxygen Saturation, Arterial 97.8 95.0 - 98.0 % 12/29/2024 10:02 AM [facility] Blood (Blood, Arterial) Arterial Puncture / Unknown 12/29/2024 9:53 AM EST 12/29/2024 9:56 AM EST us Jose Orellana MD LAB BLOOD BKR ORD ERABLES Final Result [address] [address] * (ABNORMAL) D-Dimer (12/29/2024 9:49 AM EST) D-Dimer 7,410(H) <500 ng/mL FEU 12/29/2024 12:05 PM [facility] Comment:A negative D-dimer r esult (at a cut off of 500 ng/mL FEU) when combined with a clinical assessment of low pretest probability has been shown to have a high negative predictive value for DVT or PE. Clinical correlation is required. Blood (Blood) Venipuncture / Unknown 12/29/2024 9:49 AM EST 12/29/2024 12:00 PM EST us Jose Orellana MD LAB BLOOD BKR ORD ERABLES Final Result [address] [address] * (ABNORMAL) NT-proBNP (12/29/2024 9:49 AM EST) NT-ProBNP 21,006(H) 0 - 900 pg/mL 12/29/2024 10:30 AM [facility] Comment: Age <50 years: 0-450 pg/ml Age 50-75 years: 0-900 pg/ml Age >75 years: 0-1800 pg/ml A NT-proBNP <300 pg/ml effectively rules out acute congestive heart failure, with 99% negative predictive value. NT-proBNP cutoffs were developed for the diagnosis of heart failure. Marked elevations in NT-proBNP levels may be observed in states other than left ventricular congestive heart failure. Falsely low NT-proBNP in congestive heart failure patients may be observed with increasing body-mass index. Blood (Blood) Venipuncture / Unknown 12/29/2024 9:49 AM EST 12/29/2024 9:54 AM EST us Jose Orellana MD LAB BLOOD BKR ORD ERABLES Final Result [address] [address] * (ABNORMAL) Venous Blood Gas (VBG) (12/29/2024 9:49 AM EST) pH, Venous 7.20(L) 7.31 - 7.41 12/29/2024 9:57 AM [facility] pCO2, Venous 50(H) 35 - 45 mm[Hg] 12/29/2024 9:57 AM [facility] pO2, Venous 108(H) 35 - 40 mm[Hg] 12/29/2024 9:57 AM [facility] Base Excess -8.3(L) -3.0 - 3.0 mmol/L 12/29/2024 9:57 AM [facility] Bicarbonate (HCO3) 19(L) 23 - 28 mmol/L 12/29/2024 9:57 AM EST [facility] Oxygen Saturation, Venous 97.0(H) 60.0 - 80.0 % 12/29/2024 9:57 AM EST [facility] Blood (Blood, Venous) Venipuncture / Unknown 12/29/2024 9:49 AM EST 12/29/2024 9:55 AM EST us Jose Orellana MD LAB BLOOD BKR ORD ERABLES Final Result [facility] [address] [place] [address] * XR Chest Portable (12/29/2024 9:47 AM EST) Anatomical Region Laterality Modality Chest Computed Radiogr aphy 12/29/2024 10:1 3 AM EST Impressions 12/29/2024 10:30 AM EST Cardiomegaly with moderate pulmonary edema. Left lower lobe opacity may represent superimposed pneumonia/aspiration or atelectasis. ATTESTATION: I, Anne Tucker as teaching physician, have reviewed the images for this case and if necessary edited the report originally created by Carson Izaguirre. Narrative 12/29/2024 10:30 AM EST XR CHEST PORTABLE Referring clinician's provided indication for this examination in [facility]: Dyspnea (Shortness of Breath) COMPARISON: XR CHEST PORTABLE FINDINGS: Devices/Tubes/Lines: None. Lungs: Diffuse interstitial prominence. Additional left lower lobe opacity is present. Pleura: Trace bilateral pleural effusion. Heart/Mediastinum: Unchanged cardiomegaly with aortic calcifications. Bones/Soft Tissues: No significant abnormality. Procedure Note Anne Tucker MD - 12/29/2024 XR CHEST PORTABLE Referring clinician's provided indication for this examination in [facility]:Dyspnea (Shortness of Breath) COMPARISON: XR CHEST PORTABLE FINDINGS: Devices/Tubes/Lines: None. Lungs: Diffuse interstitial prominence. Additional left lower lobe opacityis present. Pleura: Trace bilateral pleural effusion. Heart/Mediastinum: Unchanged cardiomegaly with aortic calcifications. Bones/Soft Tissues: No significant abnormality. IMPRESSION: Cardiomegaly with moderate pulmonary edema. Left lower lobe opacity mayrepresent superimposed pneumonia/aspiration or atelectasis. ATTESTATION: I, Anne Tucker as teaching physician, have reviewed theimages for this case and if necessary edited the report originally createdby Carson Izaguirre. us Jose Orellana MD IMG XR CHEST F inal Result * ENDOSCOPY, COLON (06/12/2024 7:48 AM EDT) Narrative Transcriptions Sixto Maynard MD - 06/12/2024 7:48 AM EDT [facility] Patient Name: Yecenia Rustam Gaines Attending MD:: SIXTO MAYNARD MD, Procedure Date: 06/12/2024 7:48 AM Date of : 1950 Age: 74 Admit Type: Inpatient Gender: Female Room: [place] [address] Referring MD: Baldomero Roy Exam Type: Colonoscopy [...] bowel preparation was evaluated using the BBPS ([place] Bowel Preparation Scale) with scores of:Right Colon [...] white for ongoingcare. - Outpatient f/u with [facility]. SIXTO MAYNARD MD 06/12/2024 8:13:01 AM This report has been signed electronically. Number of Addenda: 0 Note Initiated On: 06/12/2024 7:48 AM Procedure Code(s): --- Professional --- 36581, Colonoscopy, flexible; diagnostic, including collection of specimen(s) by brushing or washing, when performed (separateprocedure) --- Technical --- 79323, Colonoscopy, flexible; diagnostic, including collection of specimen(s) by brushing or washing, when performed (separateprocedure) Diagnosis Code(s): --- Professional --- D50.9, Iron deficiency anemia, unspecified K57.30, Diverticulosis of large intestine without perforation or abscess without bleeding --- Technical --- D50.9, Iron deficiency anemia, unspecified K57.30, Diverticulosis of large intestine without perforation or abscess without bleeding CPT copyright 2021 [employer]. All rights reserved. The codes documented in this report are preliminary and upon auditing coder reviewmay be revised to meet current compliance requirements. Procedure Date: 06/12/2024 7:48:[address] [place] [id number] [facility] PROCEDURE ORDERABLES Final Result from Last 3 Months or Most Recently Relevant to Health Maintenance Insurance MEDICARE PART A & B [facility] REPLACEMENT MEDICARE PART A & B O MEDICARE REPLACEMENT MEDICARE PART A & B Member Subscriber Plan / Payer ( fective 2015-Present) Name:Yecenia Alaniz Member ID:[id number] Relation to Subscriber:Self Name:Yecenia Alaniz Subscriber ID:[id number] Payer ID:[id number] Group ID:Not on file Type:Medicare Address: [employer] [id number] MEDICARE PART A & B MEDICARE PART A & B MEDICARE REPLACEMENT [place] [address] MEDICARE PART A & B MEDICARE PART A & B O MEDICARE REPLACEMENT MEDICARE PART A & B MEDICARE REPLACEMENT MEDICARE PART A & B [facility] MEDICARE REPLACEMENT Advance Directives For more information, please contact: [phone] (9AM - 5PM Laurence/[facility], Sunday-Sunday) Documents on File Type Date Recorded Patient Resolution Specialist Expl anation Healthcare Proxy 2025 * Full Code (Latest Code Status on File) Date Activated Date Inactivated Comments 12/29/2024 4:05 PM Question Answer Comments Code Status Confirmed With: Patient Code Status Communicated To: Inpatient Attending * Full Code Date Activated Date Inactivated Comments 06/07/2024 9:14 PM 12/29/2024 4:05 PM Question Answer Comments Code Status Confirmed With: Patient Healthcare Agents on File Name Relationship [facility] Agent [facility] Sree Goldberg Friend .Primary Health Care Agent (Proxy form on file) Care Teams Manufacturing Engineer Relationship Specialty Start Date End Date Baldomero Roy PA [address] [place] [address] PCP - General Physician Professor Of Graphic Design 06/07/24 Additional Source Comments The information contained in this document represents components of the legal health record. It is not the complete legal health record.[facility]
--- OUTSIDE RECORDS SUMMARY | 2025-01-14 10:05 | XMS_ITS | Encounter Summary ---
Author Organization [facility] Address [address] [facility] 7t [place] [address] Care Team Providers Care Size Cutter Name Role Phone Unavailable Primary Care Provider [...]
--- OUTSIDE RECORDS SUMMARY | 2025-01-14 10:05 | XMS_ITS | Clinical Summary ---
Author Organization [facility] Address [address] [place] [address] [place] [address] Phone Care Team Providers Care Cyber Analyst Name Role Phone Mayrchuy Ríos MD Primary Care Provider [phone] Allergies Active Allergy Reactions Criticality Noted Date Comments Codeine Other (see comments) 04/08/2020 Furosemide Itching,Other (see comments) 11/30/2020 Hydralazine Other (see comments) 01/21/2021 Morphine Other (see comments) 04/07/2020 Nsaids Other (see comments) 07/27/2020 Oxycodone-Aspirin Other (see comments) 04/07/19 21 Prednisone Other (see comments) 01/21/2021 Statins Other (see comments) 07/27/2020 Yeast (Saccharomyces Cerevisiae) 04/07/2020 Medications aspirin (ST GABBY) 81 MG [...] Sigmoidoscopy 01/02/2000 Influenza Vaccine (#1) 2024 Insurance #[address] [place] [address] Medicare Medicaid [place] Care Teams Cyber Analyst Relationship Specialty Start Date End Date Marychuy Ríos MD [address] [place] [address] PCP - General Internal Medicine 11/03/20
--- OUTSIDE RECORDS SUMMARY | 2025-01-14 10:05 | XMS_ITS | Encounter Summary ---
Author Organization [facility] Address [address] [address] [address] [place] [phone] Phone Care Team Providers Care Station Engineer Name Role Phone Baldomero Roy Primary Care Provider + Encounter Details Date Type Department Care Team (Late st Contact Info) Description 12/29/2024 Procedure [facility] [address] [place] [address] Social History Tobacco Use Types Packs/Day Years [...] PM EST documented as of this encounter Functional Status * Calculated C-SSRS Risk Score (Lifetime/Recent) Answer Date of Assessment Author No Risk Indicated 12/29/2024 5:04 PM EST Sheila Dillard RN * [place] Suicide Severity Rating Scale (Screener/Recent Self-Report) Question Answer Date of Assessment Author 1. Wish to be (Past 1 Month) No 025 5:04 PM EST Sheila Dillard RN 2. Non-Specific Active Suici curt Thoughts (Past 1 Month) No 12/29/2024 5:04 PM EST Marisela Dillard RN 6. Suicidal Behavior (Lifetime) No 5:04 PM EST Sheila Dillard RN documented as of this encounter Plan of Treatment Upcoming Encounters Date Type Department Care Team (Late st Contact Info) Description 04/07/2025 12:00 PM EST Office Visit [facility] [address] [place] [address] Naun Duran DO [address] [place] [address] [email or web address] documented as of this encounter Visit Diagnoses Not on filedocumented in this encounter Additional Health Concerns Infection Onset Date Last Indicated Resolved Time Resp-Risk Comment:Per note documentation 12/29/2024 12/29/2024 6:41 AM EST documented as of this encounter Care Teams Station Engineer Relationship Specialty Start Date End Date Baldomero Roy PA [address] [place] [address] PCP - General Physician Service Architect 06/07/24 documented as of this encounter Additional Source Comments The information contained in this document represents components of the legal health record. It is not the complete legal health record.[facility]
--- OUTSIDE RECORDS SUMMARY | 2025-01-14 10:05 | XMS_ITS | Encounter Summary ---
Author Organization [facility] Address [address] [facility] [address] [place] [phone] Phone Care Team Providers Care Remediation Technician Name Role Phone Marychuy Ríos MD Primary Care Provider Baldomero Roy Primary Care Provider + Encounter Details Date Type Department Care Team (Late st Contact Info) Description 11/30/2020 Ancillary Orders [facility] [address] [place] [address] [place] [address] Alexander Matthew PA [address] [place] [phone] [email or web address] Social History Tobacco Use Types Packs/Day Years [...] Description 04/07/2025 12:00 PM EST Office Visit [facility] [address] [place] [address] Naun Duran DO [address] [place] [address] [email or web address] documented as of this encounter Visit Diagnoses Not on filedocumented in this encounter Additional Health Concerns Infection Onset Date Last Indicated Resolved Time Resp-Risk Comment:Per note documentation 12/29/2024 12/29/2024 5 6:41 AM EST documented as of this encounter Care Teams Remediation Technician Relationship Specialty Start Date End Date Marychuy Ríos MD [address] [facility] [address] [place] [address] PCP - General Internal Medicine 11/30/20 06/06/24 Baldomero Roy PA [address] [place] [address] PCP - General Physician Gut Cleaner 06/07/24 documented as of this encounter Additional Source Comments The information contained in this document represents components of the legal health record. It is not the complete legal health record.[facility]
--- OUTSIDE RECORDS SUMMARY | 2025-01-14 10:05 | XMS_ITS | Encounter Summary ---
Author Organization [facility] Address [address] [facility] 7t [place] [address] Care Team Providers Care Rubber Goods Supervisor Name Role Phone Unavailable Primary Care [...]
--- OUTSIDE RECORDS SUMMARY | 2025-01-14 10:05 | XMS_ITS | Encounter Summary ---
Author Organization [facility] Address [address] [place] [address] [place] [address] Phone Care Team Providers Care Tax Services Manager Name Role Phone Marychuy Ríos MD Primary Care Provider [phone] Baldomero Roy Primary Care Provider + Reason [...] Expiration Date Visits Re quested Visits Authorized [id number] Closed 11/14/2021 11/14/2022 1 1 Encounter Details Date Type Department Care Team (Late st Contact Info) Description 11/14/2021 Transcribe Orders Virtual Department [address] [place] [address] Marychuy Ríos MD [address] [facility] [address] [place] [address] Bruit of right carotid artery (Primary Dx); [...] Description 04/07/2025 12:00 PM EST Office Visit [facility] [address] [place] [address] Naun Duran, [address] [place] [address] [email or web address] documented as of this encounter Results * [...] of cerebral infarction documented in this encounter Additional Health Concerns Infection Onset Date Last Indicated Resolved Time Resp-Risk Comment:Per note documentation 12/29/2024 12/29/2024 5 6:41 AM EST documented as of this encounter Care Teams Tax Services Manager Relationship Specialty Start Date End Date Marychuy Ríos MD [address] [facility] [address] [place] [address] PCP - General Internal Medicine 11/30/20 06/06/24 Baldomero Roy PA [address] [place] [address] PCP - General Physician Blue Leather Sorter 06/07/24 documented as of this encounter Additional Source Comments The information contained in this document represents components of the legal health record. It is not the complete legal health record.[facility]
--- OUTSIDE RECORDS SUMMARY | 2025-01-14 10:05 | XMS_ITS | Clinical Summary ---
Author Organization [employer] Address [address] [facility] 7t [place] [address] Care Team Providers Care Bin Worker Name Role Phone Unavailable Primary Care [...]
[2025-01-14 11:12] LABS: Anion Gap 15 (12-20); Blood Urea Nitrogen 56 mg/dL (9-16); Calcium 9.5 mg/dL (8.4-10.2); Carbon Dioxide 24 mmol/L (22-29); Chloride 109 mmol/L (96-108); Estimated Glomerular Filt Rate 14; Iron 41 mcg/dL (30-160); Percent Iron Saturation 18 % (15-50); Potassium 3.8 mmol/L (3.3-5.1); Sodium 144 mmol/L (135-145); Total Iron Binding Capacity 228 mcg/dL (228-428); Unsaturated Iron Binding 187 ug/dL
[2025-01-14 11:52] LABS: Ferritin 2166 ng/mL (10-250)
== END 2025-01-14 09:11 | disposition home or self-care (01) ==
LOC: HO.LAB 09:10
PROVIDERS: PCP Physician Assistant; Visit Provider Internal Medicine Nephrology
DX: I12.9 Hypertensive chronic kidney disease with stage 1 through stage 4 chronic kidney disease, or unspecified chronic kidney disease (principal); N18.4 Chronic kidney disease, stage 4 (severe); N17.9 Acute kidney failure, unspecified; N25.81 Secondary hyperparathyroidism of renal origin; D63.1 Anemia in chronic kidney disease
CPT/HCPCS: 36415; 80051; 82310; 82565; 82728; 83540; 84520; 85025; 96372; 99212; Q5106

== ENCOUNTER 2025-01-14 10:50 | Outpatient (AMB) | payer OTHER, SELFPAY ==
--- NOTE | 2025-01-14 11:00 | HO.NEPHOV ---
Vital Signs 01/14/25 11:01 Height 5 ft 8 in Weight 167 lb 4 oz BMI 25.4 BP 160/80 H Blood Pressure Location Lt brachial Position Sitting Pulse 77 Pulse Source Pulse Oximeter Pulse Oximetry (%) 97 Oxygen Delivery Method Room Air Intake Visit Reasons: 1 mo f/u w/ labs-Conf Primer Inserting Machine Operator Required: No Accompanied by: Self / Same As Patient Allergies lisinopril Allergy (Severe, Verified 01/14/25 11:01) Unknown codeine Allergy (Intermediate, Verified 01/14/25 11:01) Nausea latex Allergy (Intermediate, Verified 01/14/25 11:01) Rash hydrochlorothiazide Allergy (Unknown, Verified 01/14/25 11:01) Unknown morphine Allergy (Unknown, Verified 01/14/25 11:) Nausea SHAYY Inhibitors Adverse Reaction (Unknown, Verified 01/14/25 11:) Unknown HPI Comments Details: Yecenia is a 75-year-old female with a PMH significant for?CAD s/p stenting 2018, hx of DVT with pulmonary embolism 2017 on Eliquis, HTN, HLD, CKD 3, chronic anemia requiring transfusions in the past, diet-controlled diabetes type 2, osteoarthritis, and chronic lower leg edema was seen for F/U today. She recently had JHONY on CKD due to HF and was in [facility]. She denies shortness of breath, chest pain, orthopnea or urinary or uremic symptoms. [facility] Medical History Graves disease CAD (coronary artery disease) Osteoarthritis Hx of transfusion of packed red blood cells Diet-controlled diabetes mellitus Pulmonary embolism DVT (deep venous thrombosis) Anemia in chronic kidney disease Hypertension CKD (chronic kidney disease) stage 3, GFR 30-59 ml/min Surgical History History of tooth extraction Hx of heart artery stent History of partial hysterectomy Family History Maternal Grandfather Stomach cancer Social History Household Members: None Housing: Apartment Do you presently have visiting nurse or other home services: No Alcohol intake: never Patient Tobacco Use Status: Former Tobacco user Tobacco use type: Cigarette e-Cigarette/Vaping Use: Never Used Second Hand Smoke Exposure: Yes service: No Current occupational status: retired Cognitive needs: Yes (Walker, cane) Hearing needs: Yes Vision needs: No Review of Systems Const All systems reviewed & are unremarkable except as noted in HPI and below Physical Exam Vital Signs: Last Vital Signs Pulse 77 01/14/25 11:01 BP 160/80 H 01/14/25 11:01 Pulse Ox 97 01/14/25 11:01 Oxygen Delivery Method Room Air 01/14/25 11:01 BMI result Body Mass Index 25.4 Const General: comfortable and no acute distress Orientation/consciousness: patient oriented x3 HEENT Head: Yes normocephalic Mouth: Normal oral and palatal mucosa present Eyes EOM: EOMs intact bilaterally Neck Neck: Yes supple Resp Auscultation: clear to auscultation bilaterally Cardio Jugular venous distension: no JVD Rate: regular rate GI Palpation (GI): Soft to palpation Auscultation: normal bowel sounds General: Yes no CVA tenderness Back/Spine/Pelvis Back: no CVA tenderness Skin General skin exam: no rashes or lesions noted Neuro General: patient oriented x3 and moves all extremities Office Meds epoetin walt-epbx 10,000 unit/mL injection solution Performing Provider: London Boyer MD Performing Location: [facility] [place] [facility] Administered by: London Boyer MD on 01/14/25 11:08 Dose Route Admin Location Dispensed Lot Number Expiration Date [facility] [place] [employer] Machine Tender 40,000 unit subcut RUE 4 mL [id number] 08/19/25 0125-8625-63 [employer] Total Dispensed Waste 4 mL 0 % Results Reviewed Nephrology Results: Hgb, (12.0-16.0) 8.8 g/dl L Today WBC, (4.8-10.8) 7.3 X10*3/uL Today Plt Count, (160-400) 286 X10*3/uL Today Assessment & Plan Assessment & Plan (1) Secondary hyperparathyroidism (of renal origin): Code(s): N25.81 - Secondary hyperparathyroidism of renal origin Category: Medical (2) Anemia in chronic kidney disease: Code(s): N18.9 - Chronic kidney disease, unspecified; D63.1 - Anemia in chronic kidney disease Category: Medical Qualifiers: Chronic kidney disease stage: stage 3 (moderate) Chronic kidney disease stage 3 subtype: stage 3b (GFR 30-44) Qualified Code(s): N18.32 - Chronic kidney disease, stage 3b; D63.1 - Anemia in chronic kidney disease (3) Acute kidney injury superimposed on CKD: Code(s): N17.9 - Acute kidney failure, unspecified; N18.9 - Chronic kidney disease, unspecified Category: Medical (4) CKD stage 4 secondary to hypertension: Code(s): I12.9 - Hypertensive chronic kidney disease with stage 1 through stage 4 chronic kidney disease, or unspecified chronic kidney disease; N18.4 - Chronic kidney disease, stage 4 (severe) Category: Medical Plan Yecenia has chronic kidney disease and longstanding hypertension. 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 She is known to have coronary artery disease and has undergone angioplasty and stenting. She had an upper endoscopy, colonoscopy and sigmoidoscopy. She has seen GI . Her edema is better. She can continue current dose of lasix . I started her on hydralazine 10 mg tid. I administered Procrit 40 K Units in the office today. She had a Hematology consult. She is due to have a bone marrow biopsy ( needs to R/O sickle cell trait/ hypoplastic marrow/ anti EPO antibody ). She needs to maintain low-sodium & K diet. Follow up blood work ordered. Answered all questions. Orders: Orders AMB Epoetin Injection Practice Supplied Today D63.1 - Anemia in chronic kidney disease, N18.32 - Chronic kidney disease, stage 3b Complete Blood Count Auto Diff 1 Month D63.1 - Anemia in chronic kidney disease, I12.9 - Hypertensive chronic kidney disease with stage 1 through stage 4 chronic kidney disease, or unspecified chronic kidney disease, N18.32 - Chronic kidney disease, stage 3b, N18.4 - Chronic kidney disease, stage 4 (severe) Electrolytes 1 Month D63.1 - Anemia in chronic kidney disease, I12.9 - Hypertensive chronic kidney disease with stage 1 through stage 4 chronic kidney disease, or unspecified chronic kidney disease, N18.32 - Chronic kidney disease, stage 3b, N18.4 - Chronic kidney disease, stage 4 (severe) Blood Urea Nitrogen 1 Month D63.1 - Anemia in chronic kidney disease, I12.9 - Hypertensive chronic kidney disease with stage 1 through stage 4 chronic kidney disease, or unspecified chronic kidney disease, N18.32 - Chronic kidney disease, stage 3b, N18.4 - Chronic kidney disease, stage 4 (severe) Creatinine 1 Month D63.1 - Anemia in chronic kidney disease, I12.9 - Hypertensive chronic kidney disease with stage 1 through stage 4 chronic kidney disease, or unspecified chronic kidney disease, N18.32 - Chronic kidney disease, stage 3b, N18.4 - Chronic kidney disease, stage 4 (severe) Medications: New hydralazine 10 mg PO TID 90 tabs 3RF 30 days Coding Level of Care Code Est Pt Level 4 (75896) Diagnoses Secondary hyperparathyroidism (of renal origin) N25.81 Anemia in stage 3b chronic kidney disease N18.32; D63.1 Chronic kidney disease stage: stage 3 (moderate) Chronic kidney disease stage 3 subtype: stage 3b (GFR 30-44) Acute kidney injury superimposed on CKD N17.9; N18.9 CKD stage 4 secondary to hypertension I12.9; N18.4
[2025-01-14 11:01] VITALS: BP 160/80; PULSE 77; O2SAT 97; BMI 25.4
== END 2025-01-14 11:37 | disposition home or self-care (01) ==
LOC: HO.HKA 10:51
PROVIDERS: Visit Provider Internal Medicine Nephrology
DX: N25.81 Secondary hyperparathyroidism of renal origin (principal); N18.32 Chronic kidney disease, stage 3b; D63.1 Anemia in chronic kidney disease; N17.9 Acute kidney failure, unspecified; I12.9 Hypertensive chronic kidney disease with stage 1 through stage 4 chronic kidney disease, or unspecified chronic kidney disease; N18.9 Chronic kidney disease, unspecified; N18.4 Chronic kidney disease, stage 4 (severe)
CPT/HCPCS: 99214

== ENCOUNTER 2025-02-06 08:39 | Outpatient (REF) | payer OTHER, SELFPAY ==
--- OUTSIDE RECORDS SUMMARY | 2025-02-06 08:50 | XMS_ITS | Encounter Summary ---
Author Organization [employer] [facility] Address [address] [place] [address] Care Team Providers Care Mica Inspector Name Role Phone Unavailable Primary Care [...]
--- OUTSIDE RECORDS SUMMARY | 2025-02-06 08:50 | XMS_ITS | Encounter Summary ---
Author Organization [facility] Address [address] [place] [address] Phone Care Team Providers Care Operational Trainer Name Role Phone Baldomero Roy Primary Care Provider [phone] Encounter Details Date Type Department Care Team (Late st Contact Info) Description 09/01/2020 Orders Only [facility] [address] [place] [address] [place] [phone] London Boyer MD [address] [place] [address] Stage 3b chronic kidney disease (HCC); Essential [...] 7:46 AM EDT) Glucose 113(H) (70-99) MG/DL [facility] BUN 42(H) (8-23) MG/DL [facility] Creatinine 2.0(H) (0.5-1.0) MG/DL [facility] Sodium 141 (133-145) MMOL/L [facility] Potassium 5.1 (3.6-5.2) MMOL/L [facility] Chloride 106 (98-107) MMOL/L [facility] Bicarbonate (CO2) 23 (22-29) MMOL/L [facility] Anion Gap 12 (4-17) [facility] Albumin 4.2 (3.4-4.8) GM/DL [facility] Calcium 9.5 (8.6-10.5) MG/DL [facility] Phosphorus, Serum 3.8 (2.5-4.5) MG/DL [facility] Est GFR Non 25 ML/MIN/1.7 3 M2 [facility] Comment: Creatinine based estimated glomerular filtration rate (eGFR) is calculated using the Chronic Kidney Disease Epidemiology Collaboration (CKD-EPI). The CKD-EPI creatinine equation has not been validated in children (<18 years), women or in some racial or ethnic subgroups other than Caucasians and Americans. EST GFR 29 ML/MIN/1.7 3 M2 [facility] Comment: Creatinine based estimated glomerular filtration rate (eGFR) is calculated using the Chronic Kidney Disease Epidemiology Collaboration (CKD-EPI). The CKD-EPI creatinine equation has not been validated in children (<18 years), women or in some racial or ethnic subgroups other than Caucasians and Americans. Testing performed or reported by [facility], a Service of [facility], [address] [place] [id number] John Muñiz MD, Disabilities Services Officer Blood specimen (specimen) Venous blood / Unknown 08/03/2020 7:46 AM EDT 08/03/2020 7:49 AM EDT us London Boyer MD LAB BLOOD ORDERABLES Final Resul t [facility] * (ABNORMAL) CBC (08/03/2020 7:46 AM EDT) White Blood Cells 6.3 (4.0-11.0) K/MM3 [facility] RBC 3.73(L) (4.20-5.40 ) M/MM3 [facility] Hgb 9.7(L) (11.7-15.5 ) GM/DL [facility] Hematocrit 34.5(L) (35.7-45.8 ) % [facility] MCV 92.5 (80.0-100. 0) FL [facility] MCH 26.0(L) (27.0-34.0 ) PG [facility] MCHC 28.1(L) (33.0-37.0 ) g/dL [facility] Platelets 262 (150-460) K/MM3 [facility] RDW-SD 59.2(H) (<47.0) FL [facility] MPV 12.1 (9.4-12.4) FL [facility] nRBC Count 0.3 #/100 WBC'S [facility] NRBC Absolute 0.0 K/MM3 [facility] Comment: Testing performed or reported by [facility], a Service of [facility], [address] [place] [address] John Muñiz MD, Disabilities Services Officer Blood specimen (specimen) Venous blood / Unknown 08/03/2020 7:46 AM EDT 08/03/2020 7:49 AM EDT us London Boyer MD LAB BLOOD ORDERABLES Final Resul t [facility] documented in this encounter Visit Diagnoses Diagnosis Stage 3b chronic kidney disease (HCC) Essential hypertension documented in this encounter Care Teams Operational Trainer Relationship Specialty Start Date End Date Baldomero Roy PA [address] [place] [address], [address] [place] [address] PCP - General Physician Hollow Tile Partition Erector 02/03/25 documented as of this encounter
--- OUTSIDE RECORDS SUMMARY | 2025-02-06 08:50 | XMS_ITS | Clinical Summary ---
Author Organization [employer] Address [address] [facility] 7t [place] [address] Care Team Providers Care Senior Commissions Analyst Name Role Phone Unavailable Primary Care Provider [...]
--- OUTSIDE RECORDS SUMMARY | 2025-02-06 08:50 | XMS_ITS | Clinical Summary ---
Author Organization [facility] Address [address] [place] [address] Phone Care Team Providers Care Knowledge Management Consultant Name Role Phone Baldomero Roy Primary Care Provider [phone] Allergies Active Allergy Reactions Criticality Noted Date [...] Insurance Medicare Medicaid [place] [facility] Dual SNP ([id number]) Care Teams Knowledge Management Consultant Relationship Specialty Start Date End Date Baldomero Roy PA [address] [facility], [address] [place] [address] PCP - General Physician Search Developer 02/03/25
--- OUTSIDE RECORDS SUMMARY | 2025-02-06 08:50 | XMS_ITS | Encounter Summary ---
Author Organization [email or web address] [facility] Address [address] [facility] 7t [place] [address] Care Team Providers Care State Highway Police Officer Name Role Phone Unavailable Primary Care Provider [...]
[2025-02-06 08:57] LABS: MANUAL DIFF FLAG NO
[2025-02-06 09:36] LABS: Hematocrit 34.9 % (37.0-47.0); Hemoglobin 10.4 g/dl (12.0-16.0); Imm Gran Abs Auto 0.08 X10*3/uL (0.00-0.03); Imm Gran Pct Auto 1.0 % (0.0-0.4); Lymphocytes Absolute Auto 2.1 X10*3/uL (1.2-4.9); Mean Corpuscular HGB Conc 29.8 g/dl (31.0-35.0); Mean Corpuscular Hemoglobin 27.7 pg (27.0-33.0); Mean Corpuscular Volume 92.8 fL (80.0-98.0); NRBC Abs Auto 0.020 X10*3/uL (0.0-0.012); NRBC Pct Auto 0.2 /100WBC (0.0-0.2); Platelet Count 440 X10*3/uL (160-400); Red Blood Count 3.76 X10*6/uL (4.20-5.50); White Blood Count 8.3 X10*3/uL (4.8-10.8)
[2025-02-06 10:39] LABS: Anion Gap 26 (12-20); Blood Urea Nitrogen 107 mg/dL (9-16); Carbon Dioxide 24 mmol/L (22-29); Chloride 95 mmol/L (96-108); Estimated Glomerular Filt Rate 8; Potassium 3.7 mmol/L (3.3-5.1); Sodium 141 mmol/L (135-145)
== END 2025-02-06 08:40 | disposition home or self-care (01) ==
LOC: HO.LAB 08:39
PROVIDERS: PCP Physician Assistant; Visit Provider Internal Medicine Nephrology
DX: I12.9 Hypertensive chronic kidney disease with stage 1 through stage 4 chronic kidney disease, or unspecified chronic kidney disease (principal); N18.4 Chronic kidney disease, stage 4 (severe); D63.1 Anemia in chronic kidney disease; N17.9 Acute kidney failure, unspecified; Z86.79 Personal history of other diseases of the circulatory system
CPT/HCPCS: 36415; 80051; 82565; 84520; 85025

== ENCOUNTER 2025-02-06 10:23 | Outpatient (AMB) | payer OTHER, SELFPAY ==
--- OUTSIDE RECORDS SUMMARY | 2025-01-29 19:53 | XMS_ITS | Encounter Summary ---
Author Organization [facility] Address [address] [address] Phone Care Team Providers Care Medical Collections Representative Name Role Phone Baldomero Roy Primary Care Provider + London Boyer MD Primary Care Pro vider Reason for Referral * Home Health Care - Pending Review Specialty Diagnoses / Procedures Referred By Tyree ambriz Referred To Contact Home Health Services Ruddy Umaña CNP [address] [place] [address] Phone: tel: fax: mailto:[email or web address] Referral ID Status Reason Start Date Expiration Date V isits Requested Visits Authorized [id number] Pending Review 02/04/2025 02/04/2026 1 1 Reason for Visit * Reason Comments Hypertension Respiratory Distress * Auth/Cert (Routine) Specialty Diagnoses / Procedures Referred By Tyree ambriz Referred To Contact Diagnoses Influenza A Flash pulmonary edema Referral ID Status Reason Start Date Expiration Date Visits Re quested Visits Authorized [id number] 1 1 Encounter Details Date Type Department Care Team (Latest Contact Info) Description 01/29/2025 7:53 PM EST - 02/04/2025 12:47 PM EST Hospital Encounter [facility] [address] [place] [address] Montrell Munoz MD [address] [place] [address] Brynn Keller MD [address] [address] Erik Parry MD [address] [address] [email or web address] Discharge Disposition: Home or Self Care Social History Tobacco Use Types Packs/Day Years [...] got money to buy more. Never True 02/02/2025 Within the past 6 months the food we bought just didn't last and we didn't have enough money to get more. Never True Residential Stability Answer Date Recor ded What is your housing situation today? I have finessecharlene mckeon 02/02/2025 How many times have you move d in the past 12 months? Zero (I did not move) 02/02/2025 Paying for Meds Answer Date Recorded Do you have trouble paying for medicines? No 02/02/2025 Paying Utility Bills Answer Date Record ed Do you have trouble paying your heating or elect ricity bill? No 02/02/2025 Transportation Answer Date Recorded Has the lack of transportati on kept you from medical appointments or from getting medications? No 02/02/2025 Digital Access Answer Date Recorded No 02/02/2025 Yes 02/02/2025 Do you have reliable internet access at home? Ye s 02/02/2025 Do you have a device (e.g., phone, tablet, computer) with a working camera? Yes 02/02/2025 Intimate Partner Violence Answer Date R ecorded Are you denied basic needs s uch as food, clothing, or medical care? No 01/29/2025 In the past 12 months have y ou been in a relationship with a person who hurts, threatens, or tries to control you? No 01/29/2025 Are you denied basic needs s uch as food, clothing, or medical care? No 01/29/2025 In the past 12 months have y ou been in a relationship with a person who hurts, threatens, or tries to control you? No 01/29/2025 Comments Unknown Sex and Gender Information Value Date Recorded Sex Assigned at Female 04/15/2019 3:59 PM EST Legal Sex Female 10:01 PM EDT Gender Identity Female 04/15/2019 3:59 PM EST Sexual Orientation Straight 04/15/2019 3: 59 PM EST documented as of this encounter Last Filed Vital Signs Vital Sign Reading Time Taken Comments Blood Pressure 147/95 02/04/2025 8:00 AM EST Pulse 59 02/04/2025 8:00 AM EST Temperature 36.8 C (98.3 F) 02/04/2025 8:00 AM EST Respiratory Rate 18 02/04/2025 8:00 AM EST Oxygen Saturation 96% 02/04/2025 8:00 AM EST Inhaled Oxygen Concentration 30% 01/30/2025 7 :30 AM EST Weight 71.2 kg (156 lb 15.5 oz) 02/04/2025 5:00 AM EST Height 172.7 cm (5' 7.99 ) 01/29/2025 1 1:30 PM EST Body Mass Index 23.87 01/29/2025 11:30 PM EST documented in this encounter Functional Status * Calculated C-SSRS Risk Score (Lifetime/Recent) Answer Date of Assessment Author No Risk Indicated 01/29/2025 9:13 PM EST Kike Pagan RN * Min[place]a Suicide Severity Rating Scale (Screener/Recent Self-Report) Question Answer Date of Assessment Author 1. Wish to be (Past 1 Month) No 01/29/2025 9:13 PM Kike Nguyen RN 2. Non-Specific Active Suicidal Thoughts (Past 1 Month) No 01/29/2025 9:13 PM Kike Nguyen RN 6. Suicidal Behavior (Lifetime) No 01/29/2025 9:13 PM Kike Nguyen RN documented as of this encounter Discharge Summaries * Ruddy Umaña CNP - 02/04/2025 12:22 PM EST Images from the original note were not included. Physician Discharge Summary Admit date: 01/29/2025 Discharge date: 02/04/2025 Patient Information Yecenia Gaines, 75 y.o. female ( = 1950) Home Address: [address] [place] [id number] (home) Preferred Language: Slovenian Written Language: Slovenian Needs Expert Witness: No Type of Advance Care Directive(s): Health Care Proxy Does patient have a Health Care Proxy form completed?: Electronic copy of HCP available Health Care Agents Gabriel Hilario Alternate Healthcare Agent (Proxy form on file) - Friend Not Active Primary (Mobile) Gurmeet EastonPrimary Health Care Agent (Proxy form on file) - Son Not Active Primary (Mobile) LurdeskingSree Other (no proxy form on file) - Friend Not Active Primary (Mobile) Code Status at Discharge: Full Code Expected Discharge Disposition: Home with VNA or Home Health Patient/Family/Caregiver discharge preference/goals : Home Patient/Family/Caregiver participated and agreed with DC plan: Yes Patient/Family/Caregiver have been provided a list of discharge facilities/services to review/select: Home Health Services Discharge address same as facesheet: Yes Historical information Reason for Admission Influenza A Flash pulmonary edema Principal Problem: Flash pulmonary edema Active Problems: Acute kidney injury superimposed on chronic kidney disease Hypertensive emergency Acute respiratory failure with hypoxia and hypercapnia History of pulmonary embolism Influenza A Mitral regurgitation Resolved Problems: * No resolved hospital problems. * Principal diagnosis at discharge: Flash pulmonary edema Surgical (OR) Procedures: Surgeries this admission Past Procedures (01/29/2025 to Today) Date Procedure/Visit Type Providers 02/03/2025 Right and Left Heart Catheterization with possible LVGRAM Yomi Dawn Staff: Yomi Dawn MD - Primary Procedures this admission None Non (OR) Procedures: Pending Results Procedure Component Value Ref Range Date/Time Renin Activity [[id number]] Collected: 02/04/256 Lab Status: In process Specimen: Blood Updated: 02/04/25511 Aldosterone [[id number]] Collected: 02/04/25506 Lab Status: In process Specimen: Blood Updated: 02/04/25511 Hospital Course 75 yo F with history of HFpEF, CKD, DVT/PE on apixaban and arthritis on chronic prednisone who presents to the ED in respiratory distress, fever and hypertension. Found to be positive for influenza Aand flash pulmonary edema. Yecenia Gaines is a 75-year-old female with a history of heart failure with reduced ejectionfraction (EF 45-50%), chronic kidney disease, coronary artery disease status post drug-eluting stent to the RCA, prior DVT/PE on apixaban, and chronic prednisone use for arthritis, who presented withacute respiratory distress, severe hypertension, and fever. She was found to have flash pulmonary edema and acute respiratory failure with hypoxia and hypercapnia, confirmed by bedside ultrasound showing diffuse B-lines and chest X-ray consistent with pulmonary edema; viral testing was positive forinfluenza A. On arrival, she was tachycardic, hypertensive (BP 234/130), and febrile (103.1??F), with labs notable for acute kidney injury (creatinine 3.5, baseline 2.6-2.8), elevated lactate (4.5), and chronic anemia. Initial management included noninvasive ventilation (CPAP/BiPAP), nitroglycerin infusion for hypertensive emergency, and a single dose of IV furosemide with significant diuresis (1.2 L urine output).She was started on oseltamivir for influenza A, and antibiotics were discontinued after low suspicion for bacterial infection was established. Cardiology was consulted and attributed her recurrent flash pulmonary edema primarily to moderate to severe eccentric mitral regurgitation, as seen on her recent echocardiogram, and recommended ongoing supportive care and close outpatient follow-up for consideration of valve intervention. Her blood pressure remained elevated but improved with ongoing antihypertensive therapy, including clonidine, isosorbide dinitrate, and metoprolol. Renal function showed some improvement with supportive care (creatinine decreased to 3.3). She was transitioned off BiPAP to nasal cannula as tolerated, but required intermittent return to BiPAP for respiratory support. During admission, she refused apixaban at one point due to concerns about bleeding, but was re- educated on the importance of anticoagulation given her history of DVT/PE. Other issues addressed included monitoring of chronic anemia, stable mental status, and continuation of home prednisone for arthritis. Ezetimibe and folic acid were discontinued prior to this admission. No acute coronary syndrome was suspected despite lateral ST depressions and mildly elevated troponins, as these were unchanged from prior admissions. The patient???s course was notable for successful diuresis, stabilization of respiratory status, and initiation of targeted therapy for influenza A. 02/04/2025 --patient was followed by nephrology during her hospital stay and modifications were made to her antihypertensive regimen she did undergo left and right diagnostic cardiac catheterization on 02/03/2025 along with transesophageal echocardiogram See full report for details of transthoracic echocardiogram briefly the patient's LVEF was 45% and there was moderate perhaps more mitral regurgitation The right and left heart cath essentially normal full report is dictated separately The patient should follow-up with her usual accident examiner as recommended by Dr. Kaplan from nephrologyhere The patient should follow-up with her primary animal husbandman at [facility] Medications Allergies: kellee Bucio-dk; Codeine; Lisinopril; Nsaids (non- steroidal anti-inflammatory drug); and Hydralazine Prior to Admission Medications Prescriptions apixaban (ELIQUIS) 2.5 mg Sig: Take 2.5 mg by mouth 2 (two) times a day. ascorbic itet-cycwtynk-ppp (VITAMIN C ENERGY BOOSTER) 1,000 mg PwEP cloNIDine HCL (CATAPRES) 0.1 MG tablet Sig: Take 0.1 mg by mouth every 8 (eight) hours. furosemide (LASIX) 40 MG tablet Sig: Take 40 mg by mouth daily. hydrALAZINE (APRESOLINE) 10 MG tablet Sig: Take 10 mg by mouth 3 (three) times a day. Patient not taking: Reported on 01/30/2025 Note (01/30/2025): Not taking d/t severe joint and muscle pain isosorbide dinitrate (ISORDIL) 30 MG immediate release tablet Sig: Take 1 tablet (30 mg total) by mouth 3 (three) times a day. magnesium oxide 200 mg magnesium Chew metoprolol tartrate (LOPRESSOR) 50 MG tablet Sig: Take 50 mg by mouth 2 (two) times a day. oxyCODONE 5 MG immediate release tablet Sig: Take 5 mg by mouth every 8 (eight) hours as needed for pain (specific location in comments). Partial fill ok Patient not taking: Reported on 01/29/2025 predniSONE (DELTASONE) 5 MG tablet Sig: Take 5 mg by mouth daily. vitamin B complex-folic acid (B COMPLEX 1, WITH FOLIC ACID,) 0.4 mg Tab Sig: Take 1 tablet by mouth. Facility-Administered Medications: None Medication List STOP taking these medications furosemide 40 MG tablet Commonly known as: LASIX hydrALAZINE 10 MG tablet Commonly known as: APRESOLINE metoprolol tartrate 50 MG tablet Commonly known as: LOPRESSOR oxyCODONE 5 MG immediate release tablet Vitamin C Energy Booster 1,000 mg Pwep oral powder packet Generic drug: ascorbic zksg-vvuvqyen-otq TAKE these medications Instructions amLODIPine 5 MG tablet Commonly known as: NORVASC Last time this was given: February 04, 2025 8:30 AM Take 1 tablet (5 mg total) by mouth daily. Start taking on: February 05, 2025 B Complex 1 (with folic acid) 0.4 mg Tab Generic drug: vitamin B complex-folic acid Take 1 tablet by mouth. cloNIDine HCL 0.1 MG tablet Commonly known as: CATAPRES Last time this was given: February 04, 2025 8:30 AM Take 0.1 mg by mouth every 8 (eight) hours. Eliquis 2.5 mg Generic drug: apixaban Last time this was given: February 04, 2025 8:30 AM Take 2.5 mg by mouth 2 (two) times a day. empagliflozin 10 mg tablet Commonly known as: JARDIANCE Take 1 tablet (10 mg total) by mouth daily. Start taking on: February 05, 2025 isosorbide dinitrate 40 MG immediate release tablet Commonly known as: ISORDIL Last time this was given: February 04, 2025 5:21 AM Take 1 tablet (40 mg total) by mouth every 8 (eight) hours. What changed: medication strength how much to take when to take this magnesium oxide 200 mg magnesium Chew predniSONE 5 MG tablet Commonly known as: DELTASONE Last time this was given: February 04, 2025 8:30 AM Take 5 mg by mouth daily. torsemide 60 mg Tab Last time this was given: February 04, 2025 8:31 AM Take 60 mg by mouth daily. Where to Get Your Medications These medications were sent to [facility]/pharmacy #[id number] - [address]EXT TO [facility] [address] [place] [id number] amLODIPine 5 MG tablet empagliflozin 10 mg tablet isosorbide dinitrate 40 MG immediate release tablet torsemide 60 mg Tab Hospital Care Team Service: Critical Care Inpatient Attending: Erik Parry MD Attending phys phone: Discharge Unit: [facility] Primary Care Physician: London Boyer MD [phone] Transitional Plan Scheduled appointments: Scheduled Appointments (maximum listed = 10) Provider Department Dept Phone Center Visit Type 04/07/2025 12:00 PM (Arrive by 11:45 AM) Naun Duran DO [facility] [phone] New Patient Your Follow-Up Appointments London Boyer MD Specialty: Nephrology, Internal Medicine Relationship: PCP - General [address] [place] [id number] Schedule an appointment as soon as possible for a visit in 1 week(s) Signed Discharge Orders (From admission, onward) Ordered 02/04/25 1218 Activity as tolerated 02/04/25 1218 Discharge diet Comments: Diet Regular; Fluid Restriction total / 24h: 2000 ML FLUID; Fat Restriction: Low fat (cardiac); Sodium Restriction: 2 GM NA 02/04/25 1218 For immediate questions regarding your hospitalization, your medications, and any pending test results please contact your PCP: London Boyer MD at [phone]. Comments: For immediate questions regarding your hospitalization, your medications, and any pendingtest results please contact your PCP: London Boyer MD at [phone]. Discharge instructions and important events and results None Exam Temperature: 36.8 ??C (98.3 ??F) (02/04/25799) Heart Rate: (!) 59 (02/04/25799) BP: (!) 147/95 (02/04/25799) Respiratory Rate: 18 (02/04/25799) SpO2: 96 % (02/04/25799) O2 Device: None (Room air) (02/04/25799) O2 Flow Rate (L/min): 2 O2 Flow Rate (mL/min): 6 FiO2 (%): 30 % (01/30/25729) Weight: 71.2 kg (156 lb 15.5 oz) (02/04/25499) Height: 172.7 cm (5' 7.99 ) (01/29/252329) BMI (Calculated): 25.21 (01/29/252329) Disability Identity and Disability Accommodations Comments Disability Identity Physical/Mobility Disability Accommodations Comments Pt uses walker and right leg cannot be touched Data/Results Results are shown for the following tests if performed (CBC, Chem 7, Mg, Coag). If the patient did not have any of these tests, no results will be shown here. Lab Results Component Value Date/Time WBC 4.40 02/04/2025506 RBC 3.06 (L) 02/04/2025506 HGB 8.5 (L) 02/04/2025506 HCT 28.8 (L) 02/04/2025506 MCH 27.8 02/04/2025506 MCV 94.1 02/04/2025506 PLT 297 02/04/2025506 RDW 15.4 (H) 02/04/2025506 Lab Results Component Value Date/Time NA 141 02/04/2025506 K 4.3 02/04/2025506 CL 96 (L) 02/04/2025506 CO2 27 02/04/2025506 BUN 77 (H) 02/04/2025506 CRE 3.70 (H) 02/04/2025506 CA 9.1 02/04/2025506 GLU 127 (H) 02/04/2025506 Lab Results Component Value Date/Time MG 2.0 02/03/2025 0425 Lab Results Component Value Date/Time PT 13.0 01/29/20252009 PTINR 1.1 01/29/20252009 Time > 30 min Cosigned by Erik Parry MD at 02/04/2025 12:26 PM EST documented in this encounter Discharge Instructions * Attachments The following attachments cannot be sent through Care Everywhere. * Empagliflozin (Slovenian) documented in this encounter Medications at Time of Discharge amLODIPine (NORVASC) 5 MG tablet Take 1 tablet (5 mg total) by mouth daily. 30 tablet 2 02/05/2025 apixaban (ELIQUIS) 2.5 mg Take 2.5 mg by mouth 2 (two) times a day. cloNIDine HCL (CATAPRES) 0.1 MG tablet Take 0.1 mg by mouth every 8 (eight) hours. empagliflozin (JARDIANCE) 10 mg tablet Take 1 tablet (10 mg total) by mouth daily. 30 tablet 2 02/05/2025 isosorbide dinitrate (ISORDIL) 40 MG immediate release tablet Take 1 tablet (40 mg total) by mouth every 8 (eight) hours. 270 tablet 2 02/04/2025 magnesium oxide 200 mg magnesium Chew predniSONE (DELTASONE) 5 MG tablet Take 5 mg by mouth daily. torsemide 60 mg Tab Take 60 mg by mouth daily. 30 tablet 2 02/04/2025 vitamin B complex-folic acid (B COMPLEX 1, WITH FOLIC ACID,) 0.4 mg Tab Take 1 tablet by mouth. documented as of this encounter Progress Notes Only the most recent of 26 notes is shown. * Krissy Melara RN - 02/04/2025 10:40 AM EST Case Management - Discharge Note 02/04/25 1039 Discharge Planning Evaluation Patient/Family/Caregiver participated and agreed with DC plan Yes Discharge Plan Expected Discharge Disposition Home with VNA Disposition Comments Pt discharging home today with [facility] for SN. [facility] will provide transport home via chair van. Mode of DC Transportation Chair car Discharge address same as facesheet Yes Patient/Family declines facility rehab N/A Case Management Note: Discharge with Home Health Agency/VNA Communication Summary: Pt discharging home today with [facility] for SN. Chart reviewed, plan of care and discharge options discussed with the treatment team, and the patient and/or a utility sales representative. The discharge plan is home with VNA services. VNA: [facility] requested SN. VNA orders are complete Yes Expected Discharge Date:02/04/25 List of facilities/services provided; Patient/Family/Caregiver have been provided a list of discharge facilities/services to review/select: Home Health Services (02/01/2025 1:38 PM) Transportation: Medicare Part B pays for ambulance transportation only if other means of transportation would endanger the beneficiary's health or if the patient is on specific precautions. Medicaid will reimburse for Chair Car services only when the use of any other method of transportation is cont raindicated by the patient's condition. The patient may incur a bill for transportation expenses, and this has been discussed with patient or their designee. This [facility] has established relationships with non-acute providers that meet [facility]'s Healthcareperformance criteria. These relationships were discussed with the patient or utility sales representative before a post-acute referral was made. Choice was provided before making referrals to post-acute providers,agencies, and vendors. Discharge Planning is conducted as outlined in the Code of Federal Regulations- Conditions of Participation for Hospitals under Title 42, Part 482, specifically Discharge Planning, 482 C.F.R. ?? 482.43 (2023). Krissy Melara RN documented in this encounter H&P Notes * Daysi Mckenzie PA-Stevie - 01/29/2025 10:08 PM EST [facility] ICU History and Physical Exam Name:?Yecenia Gaines MRN:?[id number] : 1950 Date: 01/29/2025 Time: 10:08 PM ?PCP: ??Baldomero Roy PA Chief Complaint Patient presents with Hypertension Respiratory Distress HPI: 75 yo F with history of HFrEF, CKD, CAD, DVT/PE on apixaban and arthritis on chronic prednisone who presents to the ED with respiratory distress. History from the patient is limited due to her need for NIPPV. She was recently admitted to the hospital for flash pulmonary edema about one month ago. She has been doing well since that time and saw her animal husbandman yesterday, who also felt she was stable, per her report. Over the last few days she has developed rhinorrhea and a cough. She has been taking he medications as prescribed and her weight has been stable. This evening she developed sudden onset of respiratory distress and called EMS. CPAP was placed en route. Upon arrival to the ED she was noted to be tachycardic and severely hypertensive with a blood pressure of 234/130 and a heart rate of 151 bpm. She was also noted to be febrile with a temp of 103.1. Bedside ultrasound revealed diffuse B lines and chest xray was consistent with pulmonary edema. Bloodwork showed an elevated creatinine of 3.5 (baseline around 2.6-2.8), lactate of 4.5. She was started on BiPAP and a nitroglycerin infusion. She was given a dose of zosyn out of concern for possible infection. Viral testing positive for influenza A. At the time of my assessment she is feeling some improvement on BiPAP, but remains short of breath.No chest pain, nausea, vomiting or abdominal pain currently. Past Medical History: Patient has a past medical history of Anemia, Congestive heart failure, Hypertensive disorder, Osteoarthritis, and ST elevation (STEMI) myocardial infarction (2019). Past Surgical History: Patient has a past surgical history that includes Coronary angioplasty with stent (10/2018) and COLONOSCOPY (N/A, 06/12/2024). Family Medical History: Patient family history is not on file. Social History: Patient reports that she has never smoked. She has never used smokeless tobacco. She reports that she does not drink alcohol. Medications Allergies: Allergies Allergen Reactions Allerg Xt,D.Farinae-D.Pteronys Codeine Unknown Nsaids (Non-Steroidal Anti-Inflammatory Drug) Unknown and Other (See Comments) Hydralazine Erythema Drug induced lupus , ACCESS REP Meds: Prior to Admission Medications Prescriptions apixaban (ELIQUIS) 2.5 mg Sig: Take 2.5 mg by mouth 2 (two) times a day. ascorbic dnay-gnyxwfin-jdm (VITAMIN C ENERGY BOOSTER) 1,000 mg PwEP cefpodoxime (VANTIN) 200 MG tablet Sig: Take 1 tablet (200 mg total) by mouth daily for 1 dose. cloNIDine HCL (CATAPRES) 0.1 MG tablet Sig: Take 0.1 mg by mouth every 8 (eight) hours. furosemide (LASIX) 40 MG tablet Sig: Take 40 mg by mouth daily. isosorbide dinitrate (ISORDIL) 30 MG immediate release tablet Sig: Take 1 tablet (30 mg total) by mouth 3 (three) times a day. magnesium oxide 200 mg magnesium Chew metoprolol tartrate (LOPRESSOR) 50 MG tablet Sig: Take 50 mg by mouth 2 (two) times a day. oxyCODONE 5 MG immediate release tablet Sig: Take 5 mg by mouth every 8 (eight) hours as needed for pain (specific location in comments). Partial fill ok predniSONE (DELTASONE) 5 MG tablet Sig: Take 5 mg by mouth daily as needed. vitamin B complex-folic acid (B COMPLEX 1, WITH FOLIC ACID,) 0.4 mg Tab Sig: Take 1 tablet by mouth. Facility-Administered Medications: None ROS As per HPI Physical Exam Last vitals (!) 39.5 ??C (103.1 ??F) P 93 BP (!) 159/102 RR 28 SpO2 98 % FiO2 30 % General: awake, alert, BiPAP in place, speaking in short sentences but not in overt distress HEENT: NCAT. Sclerae anicteric Neck: supple Lungs: diffuse crackles present, no rhonchi Cardiac: tachycardic, regular, no murmur Abdomen: bowel sounds normoactive, soft, nontender, no guarding Extremities: 1+ bilateral pitting LE edema Neuro: awake, alert, oriented x 3, moving all extremities and following instructions appropriately Data/Results CBC: 7.99 \ 9.0* / 320 / 32.8* \ 01/29 2005 BMP: 144 107 56* / 192* 4.3 19* 3.50* \ 01/29 2005 All other labs have been reviewed. EKG and or monitor strips have been reviewed and are significant for sinus tachycardia, rate of 118bpm, ST depressions present laterally Imaging Results: Radiology reviewed and significant for: radiologist interpretation pending. By my interpretation there is cardiomegaly and signs of pulmonary edema IMPRESSION/PLAN: 75 yo F with history of HFpEF, CKD, DVT/PE on apixaban and arthritis on chronic prednisone who presents to the ED in respiratory distress, fever and hypertension. Found to be positive for influenza A. Active Hospital Problems Diagnosis Date Noted Influenza A 01/29/2025 Flash pulmonary edema 06/07/2024 Acute kidney injury superimposed on chronic kidney disease 06/07/2024 Acute respiratory failure with hypoxia and hypercapnia 06/07/2024 Hypertensive emergency 06/07/2024 History of pulmonary embolism 10/19/2016 Quality Clinical Documentation: Acidosis (Present on Admission) . Treating . Bicarb of 19 on 01/29/2025 Anemia unspecified (Present on Admission) . Monitoring Chronic systolic heart failure (Present on Admission) . Treating . Received oral diuretics CKD, Stage V (GFR <15) (Present on Admission) . Monitoring NEURO: Mental status is currently intact. Continue standard delirium prevention measures. PULMONARY: Acute respiratory failure with hypoxia and hypercapnia: clinically consistent with flashpulmonary edema, though influenza A infection is likely contributing. Continue NIPPV. Given her clinical presentation, doubt that bacterial pneumonia is currently contributing, will hold off on further antibiotics. CARDIO: Flash pulmonary edema/HFrEF exacerbation: likely precipitated but acute stress/illness in the setting of influenza with high fevers. Most recent TTE 12/30 with mild global LV dysfunction, EF 45-50%, mod/severe MR and mild pulmonary HTN. Severely hypertensive at the time of admission, now responding to nitroglycerin infusion and BiPAP. Will continue to titrate down the nitroglycerin based on her blood pressure response. She is acutely infected, unclear if she is truly volume overloaded at this time or if this flash event was more of a response to the stress of high fever/influenza. Will hold off on aggressive diuresis currently. She was seen by cardiology during her last admission for flash pulmonary edema and was planned to come off of her clonidine and transition to hydralazine. However, she did not start the hydralazine because she had previously taken this medication and had severe joint and muscle pain. Given her highrisk for recurrent hypertensive emergency/pulmonary edema, it could be reasonable to start her transition from clonidine to another antihypertensive regimen in a monitored setting. Will consult cardiology for further recommendations. GI: History of anemia, suspected history of GI bleeding though no source was identified. Her anemiais stable now, no signs/symptoms of bleeding currently. : JHONY on CKD: creatinine 3.5 today, baseline appears to be 2.6/2.8. Will reassess fluid status percy respiratory status stabilizes, but will hold off on IV fluids or diuresis at this time. HEME: Stable chronic anemia. History of DVT/PE on apixaban. Patient reports that she has only been taking his apixaban every other day because of her anemia and prior suspected bleeding without a source. She has been trying to get an appointment with a wire splicer for further guidance, but has notbeen able to see anyone yet. Will resume full dose anticoagulation now, monitor for signs of bleeding, monitor H/H. ENDOCRINE: Continue home prednisone, 5 mg, which she states that she takes for arthritis/inflammation. ID: As above, influenza A positive. Will start tamiflu, renally adjusted. Hold off on further antibiotics, as I have a low suspicion for concurrent bacterial infection at this time. Admission Bundle: DVT ppx: N/A - pt is anticoagulated Code status: Full Code Critical Care Management I personally spent 70 minutes evaluating and managing (E&M) this patient's life- threatening conditions on 01/29/25, independent of procedure time. Daysi Mckenzie PA-C Cosigned by Brynn Keller MD at 02/03/2025 10:55 AM EST documented in this encounter Procedure Notes * Montrell Munoz MD - 01/29/2025 7:51 PM ESTAssociated Order(s): Bedside Ultrasound Procedure Bedside Ultrasound Date/Time: 01/29/2025 7:51 PM Performed by: Montrell Munoz MD Authorized by: Montrell Munoz MD Exam Type: Thoracic Thoracic Exam Findings & Impression: Indications: patient with shortness of breath, hypoxia and tachycardia Right Lung B-Lines: the R chest was visualized and multiple B lines were seen Left Lung B-Lines: the L chest was visualized and multiple B lines were seen Overall Impression: positive Images: Images Saved: Yes Accession Number: [id number] documented in this encounter Consult Notes Only the most recent of 5 notes is shown. * Kayleigh Dumont LCSW - 02/04/2025 10:43 AM ESTAssociated Order(s): IP CONSULT TO SOCIAL WORK Case conference with RN LEATHA who reported patient is being discharged with VNA services and no need for SW intervention. documented in this encounter Nursing Notes Only the most recent of 3 notes is shown. * Chioma Hanson RN - 02/04/2025 11:25 AM EST Pt admitted 01/29 form home with flu A and flash pulmonary edema. Pt admitted to CCU for BP management, diuresis and BIPAP. Pt with quick turn around monitored on step down for additional 24 hours. Pt constipated taking colace only. Pt OOB with walker, fall risk. Brunson discounted today. Diet regular fluid restriction 2L. documented in this encounter ED Notes * Montrell Munoz MD - 01/29/2025 7:50 PM EST Chief Complaint Chief Complaint Patient presents with Hypertension Respiratory Distress History of Present Illness The patient, Yecenia Gaines,is a 75 y.o. female who presents for evaluation of Hypertension and Respiratory Distress History of CHF, STEMI, recent admission for flash pulmonary edema. EMS called in with the patient with respiratory distress on BiPAP. I evaluated her on arrival, noted to have crackles, bedside ultrasound showed diffuse B-lines. Febrile to 103.1, difficult interview the patient as she was on BiPAP most of the time, and emesis x 1. No chest pain, does feel very short of breath. No sick contacts Unless otherwise specified, I have reviewed and agree with the triage and nursing notes. ROS A ten point review of systems was negative except what was noted in the HPI. Past Medical History Past Medical History: Diagnosis Date Anemia Congestive heart failure Hypertensive disorder Osteoarthritis Bilateral knees right greater than left, and ankles and wrists uri ST elevation (STEMI) myocardial infarction 2018 Past Surgical History Past Surgical History: Procedure Laterality Date COLONOSCOPY N/A 06/12/2024 Performed by Cristian Maynard MD at [facility] ENDOSCOPY CORONARY ANGIOPLASTY WITH STENT PLACEMENT 10/2018 Home Medications Prior to Admission medications Medication Sig apixaban (ELIQUIS) 2.5 mg 2.5 mg, Oral, 2 times daily ascorbic hurz-abqxdics-odx (VITAMIN C ENERGY BOOSTER) 1,000 mg PwEP No dose, route, or frequency recorded. cloNIDine HCL (CATAPRES) 0.1 MG tablet 0.1 mg, Every 8 hours furosemide (LASIX) 40 MG tablet 40 mg, Oral, Daily isosorbide dinitrate (ISORDIL) 30 MG immediate release tablet 30 mg, Oral, 3 times daily magnesium oxide 200 mg magnesium Chew No dose, route, or frequency recorded. metoprolol tartrate (LOPRESSOR) 50 MG tablet 50 mg, 2 times daily oxyCODONE 5 MG immediate release tablet 5 mg, Every 8 hours PRN predniSONE (DELTASONE) 5 MG tablet 5 mg, Daily as needed vitamin B complex-folic acid (B COMPLEX 1, WITH FOLIC ACID,) 0.4 mg Tab 1 tablet Allergies Allergies Allergen Reactions Allerg Xt,D.Farinae-D.Pteronys Codeine Unknown Nsaids (Non-Steroidal Anti-Inflammatory Drug) Unknown and Other (See Comments) Hydralazine Erythema Drug induced lupus Social and Family History Social History Tobacco Use Smoking status: Never Smokeless tobacco: Never Substance Use Topics Alcohol use: Never Social History Substance and Sexual Activity Drug Use Never No family history on file. Physical Exam Vital Signs: ED Triage Vitals Encounter Vitals Group BP 01/29/251954 (!) 234/130 Girls Systolic BP Percentile -- Girls Diastolic BP Percentile -- Boys Systolic BP Percentile -- Boys Diastolic BP Percentile -- Heart Rate 01/29/251954 (!) 151 Respiratory Rate 01/29/251955 28 Temperature 01/29/252023 (!) 39.5 ??C (103.1 ??F) Temp src -- SpO2 01/29/251954 90 % Weight -- Height -- Head Circumference -- Peak Flow -- Pain Score -- Pain Loc -- Pain Education -- Exclude from Growth Chart -- Physical Exam: Gen: BP (!) 210/107 Pulse (!) 102 Temp (!) 39.5 ??C (103.1 ??F) Resp 28 SpO2 98% . Well developed. Eyes: Anicteric. ENT: Atraumatic nose. Resp: Tachypneic, in respiratory distress, diffuse chronic. Tripoding CV: RRR. GI: Nondistended. MSK: No deformity. Skin: Warm, dry. Neuro: GCS 15. Psych: Normal mood. Laboratory Testing Results for orders placed or performed during the hospital encounter of 01/29/25 Venous Blood Gas (VBG) Specimen: Blood, Venous Result Value Ref Range pH, Venous 7.24 (L) 7.31 - 7.41 pCO2, Venous 53 (H) 35 - 45 mm[Hg] pO2, Venous 42 (H) 35 - 40 mm[Hg] Base Excess -5.0 (L) -3.0 - 3.0 mmol/L Bicarbonate (HCO3) 23 23 - 28 mmol/L Oxygen Saturation, Venous 68.8 60.0 - 80.0 % SARS-CoV-2, INFLUENZA A/B, PCR Specimen: Nasopharynx, Bilateral; Swab Result Value Ref Range SARS-CoV-2 RNA PCR Not Detected Not Detected Influenza A PCR Detected (*) Not Detected Influenza B PCR Not Detected Not Detected Hepatic Panel (LFTs) Specimen: Blood Result Value Ref Range AST 73 (H) <33 U/L ALT 37 (H) <34 U/L Alkaline Phosphatase 173 (H) 40 - 130 U/L Bilirubin, Total 0.4 0.0 - 1.2 mg/dL Bilirubin, Direct 0.2 0.0 - 0.3 mg/dL Total Protein 7.4 6.4 - 8.3 g/dL Albumin 3.4 (L) 3.5 - 5.2 g/dL Globulin 4.0 1.9 - 4.1 g/dL Lipase Specimen: Blood Result Value Ref Range Lipase 41 13 - 60 U/L Troponin Specimen: Blood Result Value Ref Range Troponin-T HS Gen5 54 (H) 0 - 9 ng/L PT-INR Specimen: Blood Result Value Ref Range PT 13.0 10.0 - 13.0 sec INR 1.1 0.9 - 1.1 Symptomatic Respiratory Virus Testing Panel (ED/IP) Specimen: Nasopharynx, Bilateral; Swab Result Value Ref Range SARS Comment Lactate, Whole Blood Specimen: Blood, Venous Result Value Ref Range Lactate, Whole Blood 4.5 (H) 0.5 - 2.0 mmol/L CBC and Differential Specimen: Blood Result Value Ref Range WBC 7.99 4.00 - 11.00 K/uL RBC 3.24 (L) 4.00 - 5.20 M/uL Hemoglobin 9.0 (L) 12.0 - 16.0 g/dL Hematocrit 32.8 (L) 36.0 - 46.0 % MCV 101.2 (H) 80.0 - 100.0 fL MCH 27.8 27.0 - 31.0 pg MCHC 27.4 (L) 32.0 - 36.0 g/dL MPV 10.3 8.4 - 12.0 fL RDW-CV 16.0 (H) 11.5 - 14.5 % PLT 320 150 - 450 K/uL Neutrophils 65.0 % Lymphocytes 24.0 % Monocytes 8.1 % Eosinophils 1.9 % Basophils 0.5 % Imm Grans 0.5 % NRBC 0.0 <=0.0 /100 WBCs Absolute Neutrophils 5.19 1.92 - 7.60 K/uL Absolute Lymphocytes 1.92 0.72 - 4.10 K/uL Absolute Monocytes 0.65 0.16 - 1.10 K/uL Absolute Eosinophils 0.15 0.00 - 0.50 K/uL Absolute Basophils 0.04 0.00 - 0.15 K/uL Absolute Imm Grans 0.04 0.00 - 0.09 K/uL Absolute NRBC 0.00 <=0.00 K cells/uL Absolute Neutrophils 5.19 1.92 - 7.60 K/uL Diff Type Auto NT-proBNP Specimen: Blood Result Value Ref Range NT-ProBNP >35,000 (H) 0 - 900 pg/mL Troponin Specimen: Blood Result Value Ref Range Troponin-T HS Gen5 53 (H) 0 - 9 ng/L Basic Metabolic Panel (BMP) Specimen: Blood Result Value Ref Range Sodium 144 136 - 145 mmol/L Potassium 4.3 3.4 - 5.1 mmol/L Chloride 107 98 - 107 mmol/L CO2 19 (L) 20 - 31 mmol/L BUN 56 (H) 6 - 23 mg/dL Creatinine 3.50 (H) 0.50 - 1.00 mg/dL Glucose 192 (H) 70 - 99 mg/dL Calcium 9.4 8.5 - 10.5 mg/dL eGFR 13 (L) >59 mL/min/1.73m2 Anion Gap 18 (H) 3 - 17 mmol/L Radiology Testing Bedside Ultrasound (Results Pending) XR Chest Portable (Results Pending) ED Medication from 01/29/2025 1950 to 01/29/20252135 Date/Time Order Dose Route Action Action by Comments 01/29/20252000 EST nitroglycerin infusion premix 50 mcg/min Intravenous New Bag Kike Pagan RN -- 01/29/20252033 EST nitroglycerin infusion premix 75 mcg/min Intravenous Rate/Dose Change Kike Pagan RN -- 01/29/20252056 EST nitroglycerin infusion premix 95 mcg/min Intravenous Rate/Dose Change Kike Pagan RN -- 01/29/20252057 EST nitroglycerin infusion premix 125 mcg/min Intravenous Rate/Dose Change Kike Pagan RN MD order 01/29/20252105 EST nitroglycerin infusion premix 145 mcg/min Intravenous Rate/Dose Change Kike Pagan RN -- 01/29/20252109 EST nitroglycerin infusion premix 165 mcg/min Intravenous Rate/Dose Change Kike Pagan RN -- 01/29/20252120 EST nitroglycerin infusion premix 185 mcg/min Intravenous Rate/Dose Change Kike Pagan RN -- 01/29/20252049 EST piperacillin-tazobactam (ZOSYN) 4.5 g in sodium chloride 0.9% 100 mL IVPB-MBP 4.5 g Intravenous Neetu Gomez RN -- 01/29/20252032 EST acetaminophen (TYLENOL) suppository 650 mg 650 mg Rectal Given Refugio Pagan RN -- MDM Assessment and Plan: See ED course for details, patient with history of flash pulmonary edema history presented febrile.Sepsis certainly on the differential, was given empiric Zosyn given high lactate, ultimately came back with positive. Improved on high-dose nitro, to the ICU on positive pressure ventilation, nitro Category 1: Tests, Studies or Independent Historians: Independent Historian: Independent history was obtained by EMS. EMS help give history. Prior Data Reviewed: Prior EKG was reviewed. Prior notes reviewed. Prior labs reviewed. Prior radiology tests reviewed. Prior admission notes, EKG, imaging and labs quite helpful. Category 2 and 3: Independent Interpretation of Tests, Consideration of Tests, or External Discussion of Results: Labs: Laboratory studies were interpreted. Radiology: Radiology studies were independently interpreted. Per my interpretation diffuse pulmonary edema. Bedside Ultrasound: Bedside ultrasound was performed. Pulmonary edema. ECG: EKG studies were independently interpreted. Rate: 118 Rhythm: sinus tachycardia T Wave Inversions: No ST Depressions: Yes Leads: II ST Elevations: No Comparison: Changed From Prior. New ST depression in lead II. Risks of Complications, Morbidity, or Mortality: Risks: Risks and benefits of admission to the hospital discussed with patient. Critical Care: Total Critical Care Time (minutes) 65 is exclusive of otherwise billable procedures. Services: Respiratory Indications: The patient evidenced an elevated work of breathing, with the potential to tire and suffer subsequent life-threatening respiratory collapse. Pulse oximetry indicated the patient was hypoxemic with the potential for subsequent life-threatening respiratory collapse. Interventions: For additional details about critical care interventions provided to the patient, please refer to the ???Assessment and Plan?? section. Serum lactic acid level was checked to evaluatefor hypoperfusion. We pharmacologically reduced blood pressure to minimize the risk of congestive heart failure and optimize cerebral perfusion pressure. The patient received continual bedside re-assessment of the efficacy of PPV therapy and the adequacy of the settings, in terms of oxygenation, ventilation, and ventialtion volumes and pressures. Course: Over the ED course, the patient???s respiratory effort normalized. Over the ED course, the patient responded well to therapy including positive pressure ventilation, and the patient continuedto receive positive pressure ventilation. The patient continued to receive positive pressure ventilation. Due to ongoing concerns over stability and need for ongoing critical care, the patient was adm itted to an ICU. ED Course as of 01/29/25 2136 Jackelyn Jan 29, 20252004 Diffuse B-lines on bedside echo, crackling, BiPAP on nitro gtt. at 50 [SD] 2004 BP(!): (P) 239/122 [SD] 2022 FLUID Exemption: Despite this patient having hypotension or a lactate > 4, administration of 30 mL/Kg of IV fluidmay be harmful to the patient for the following reason(s): [x ] Concern for fluid overload [ x] Congestive heart failure Patient is in florid volume overload with B-lines and bedside ultrasound, likely flash pulmonary edema with a blood pressure of 240 systolic. The patient will be given 0 mL's of IVF and monitored closely. [SD] 2027 Respiratory Rate(!): 35 [SD] 2033 Temperature(!): 39.5 ??C (103.1 ??F) [SD] 2035 Troponin-T HS Gen5(!): 53 Around BL [SD] 2035 BP(!): 210/113 Will go to 75 [SD] 2058 Creatinine(!): 3.50 Slightly above bl [SD] 2058 NT-proBNP(!): >35,000 [SD] 2121 Influenza A(!): Detected [SD] ED Course User Index [SD] Montrell Munoz MD Clinical Impressions as of 01/29/252135 Flash pulmonary edema Influenza A Critical Care Time: 65 minutes Clinical Impression Diagnosis Description Comment Final diagnoses Flash pulmonary edema Flash pulmonary edema -- Influenza A Influenza A -- Disposition: Admit to ICU Montrell Munoz MD 01/29/252151 documented in this encounter Miscellaneous Notes Only the most recent note of each type is shown. * Assessment & Plan Note - Jamey Kaplan MD - 02/04/2025 8:57 AM ESTOnly the most recent of 10 notes of type Assessment & Plan Note is shown. Associated Problem(s): Acute kidney injury superimposed on chronic kidney disease - Renal function initially improved post diuresis however her creatinine levels up to 3.7 mg/dL cardiac cath with normal filling pressures suggestive hold off on torsemide give a diuretic holiday also hold off empagliflozin - Plans per cardiology will be determined if in need of further intervention for mitral valve, we will defer to their expertise -From the nephrology perspective she has established relationship with accident examiner Dr. Anaya in [place], I will make sure she has follow-up with them with blood chemistries within a week - Patient clearly stated would like to avoid any form of dialysis in the future which she is discussed with her outpatient accident examiner. * Hospital Course - Ruddy Umaña CNP - 01/30/2025 4:33 PM EST Yecenia Gaines is a 75-year-old female with a history of heart failure with reduced ejectionfraction (EF 45-50%), chronic kidney disease, coronary artery disease status post drug-eluting stent to the RCA, prior DVT/PE on apixaban, and chronic prednisone use for arthritis, who presented withacute respiratory distress, severe hypertension, and fever. She was found to have flash pulmonary edema and acute respiratory failure with hypoxia and hypercapnia, confirmed by bedside ultrasound showing diffuse B-lines and chest X-ray consistent with pulmonary edema; viral testing was positive forinfluenza A. On arrival, she was tachycardic, hypertensive (BP 234/130), and febrile (103.1??F), with labs notable for acute kidney injury (creatinine 3.5, baseline 2.6-2.8), elevated lactate (4.5), and chronic anemia. Initial management included noninvasive ventilation (CPAP/BiPAP), nitroglycerin infusion for hypertensive emergency, and a single dose of IV furosemide with significant diuresis (1.2 L urine output).She was started on oseltamivir for influenza A, and antibiotics were discontinued after low suspicion for bacterial infection was established. Cardiology was consulted and attributed her recurrent flash pulmonary edema primarily to moderate to severe eccentric mitral regurgitation, as seen on her recent echocardiogram, and recommended ongoing supportive care and close outpatient follow-up for consideration of valve intervention. Her blood pressure remained elevated but improved with ongoing antihypertensive therapy, including clonidine, isosorbide dinitrate, and metoprolol. Renal function showed some improvement with supportive care (creatinine decreased to 3.3). She was transitioned off BiPAP to nasal cannula as tolerated, but required intermittent return to BiPAP for respiratory support. During admission, she refused apixaban at one point due to concerns about bleeding, but was re- educated on the importance of anticoagulation given her history of DVT/PE. Other issues addressed included monitoring of chronic anemia, stable mental status, and continuation of home prednisone for arthritis. Ezetimibe and folic acid were discontinued prior to this admission. No acute coronary syndrome was suspected despite lateral ST depressions and mildly elevated troponins, as these were unchanged from prior admissions. The patient???s course was notable for successful diuresis, stabilization of respiratory status, and initiation of targeted therapy for influenza A. 02/04/2025 --patient was followed by nephrology during her hospital stay and modifications were made to her antihypertensive regimen she did undergo left and right diagnostic cardiac catheterizationon 02/03/2025 along with transesophageal echocardiogram See full report for details of transthoracic echocardiogram briefly the patient's LVEF was 45% and there was moderate perhaps more mitral regurgitation The right and left heart cath essentially normal full report is dictated separately The patient should follow-up with her usual accident examiner as recommended by Dr. Kaplan from nephrologyhere The patient should follow-up with her primary animal husbandman at [facility] documented in this encounter Plan of Treatment Upcoming Encounters Date Type Department Care Team (Late st Contact Info) Description 04/07/2025 12:00 PM EST Office Visit [facility] [address] [place] [address] Naun Duran DO [address] [place] [address] Pending Results Name Type Priority Associated Diagnoses Date /Time Renin Activity Lab Routine 02/04/2025 5:06 AM EST Aldosterone Lab Routine 02/04/2025 5: 07 AM EST Scheduled Orders Name Type Priority Associated Diagnoses Orde r Schedule Renin Activity Lab Routine AM Draw fo r 1 Occurrences starting 02/04/2025 until 02/04/2025 Aldosterone Lab Routine AM Draw for 1 Occurrences starting 02/04/2025 until 02/04/2025 Scheduled Referrals Name Type Priority Associated Diagnoses Orde r Schedule Referral to Home Health [facility] Outpatient Referral Routine Ordered: 02/04/2025 documented as of this encounter Procedures Procedure Name Priority Date/Time Associated Diagnosis Comments CBC AND DIFFERENTIAL Routine 02/04/2025 5:07 AM EST CBC AND DIFFERENTIAL Routine 02/04/2025 5:07 AM EST CORTISOL Routine 02/04/2025 5:07 AM EST BASIC METABOLIC PANEL (BMP) Routine 02/04/2025 5:07 AM EST XR ABDOMEN SERIES SUPINE WITH DECUBITIS/ERECT AND SINGLE VIEW CHEST STAT 02/03/2025 6:45 PM EST RIGHT AND LEFT HEART CATHETERIZATION WITH POSSIBLE LVGRAM Routine 02/03/2025 1:48 PM EST Acute on chronic congestive heart failure, unspecified heart failure type POCT VENOUS BLOOD GAS Routine 02/03/2025 1:40 PM EST POCT ARTERIAL BLOOD GAS Routine 02/04/20 1:40 PM EST QUEENIE COMP W/ COLOR FLOW AND COMP DOPPLER Routine 02/03/2025 11:39 AM EST Mitral valve insufficiency, unspecified etiology CBC AND DIFFERENTIAL Routine 02/03/2025 4:25 AM EST CBC AND DIFFERENTIAL Routine 02/03/2025 4:25 AM EST PHOSPHORUS Routine 02/03/2025 4:25 AM EST MAGNESIUM Routine 02/03/2025 4:25 AM EST BASIC METABOLIC PANEL (BMP) Routine 02/03/2025 4:25 AM EST CBC AND DIFFERENTIAL Routine 02/02/2025 4:17 AM EST CBC AND DIFFERENTIAL Routine 02/02/2025 4:17 AM EST PHOSPHORUS Routine 02/02/2025 4:17 AM EST MAGNESIUM Routine 02/02/2025 4:17 AM EST BASIC METABOLIC PANEL (BMP) Routine 02/02/2025 4:17 AM EST PHOSPHORUS Timed 02/01/2025 3:41 PM EST MAGNESIUM Timed 02/01/2025 3:41 PM EST BASIC METABOLIC PANEL (BMP) Timed 02/01/2025 3:41 PM EST CBC AND DIFFERENTIAL Routine 02/01/2025 4:23 AM EST CBC AND DIFFERENTIAL Routine 02/01/2025 4:23 AM EST PHOSPHORUS Routine 02/01/2025 4:23 AM EST MAGNESIUM Routine 02/01/2025 4:23 AM EST BASIC METABOLIC PANEL (BMP) Routine 02/01/2025 4:23 AM EST ECG 12-LEAD STAT 01/31/2025 2:21 PM EST TROPONIN STAT 01/31/2025 2:10 PM EST COMPREHENSIVE METABOLIC PANEL (CMP) Routine 01/31/2025 5:13 AM EST CBC AND DIFFERENTIAL Routine 01/31/2025 5:13 AM EST TSH WITH REFLEX Routine 01/31/2025 5:13 AM EST SEDIMENTATION RATE (ESR) Routine 01/31/2025 5:13 AM EST CBC AND DIFFERENTIAL Routine 01/31/2025 5:13 AM EST C-REACTIVE PROTEIN (CRP) Routine 01/31/2025 5:13 AM EST PHOSPHORUS Routine 01/31/2025 5:13 AM EST NT-PROBNP Routine 01/31/2025 5:13 AM EST MAGNESIUM Routine 01/31/2025 5:13 AM EST IONIZED CALCIUM Routine 01/31/2025 5:13 AM EST CBC AND DIFFERENTIAL Routine 01/30/2025 3:44 PM EST CBC AND DIFFERENTIAL Routine 01/30/2025 3:44 PM EST PHOSPHORUS Routine 01/30/2025 3:44 PM EST MAGNESIUM Routine 01/30/2025 3:44 PM EST BASIC METABOLIC PANEL (BMP) Routine 01/30/2025 3:44 PM EST CBC AND DIFFERENTIAL Timed 01/30/2025 4:17 AM EST CBC AND DIFFERENTIAL Timed 01/30/2025 4:17 AM EST PHOSPHORUS Timed 01/30/2025 4:17 AM EST MAGNESIUM Timed 01/30/2025 4:17 AM EST BASIC METABOLIC PANEL (BMP) Timed 01/30/2025 4:17 AM EST MRSA PCR SCREEN Routine 01/30/2025 4:02 AM EST LACTATE (BLOOD GAS) STAT 01/29/2025 1 1:08 PM EST URINALYSIS WITH REFLEX TO URINE CULTURE STAT 01/29/2025 9:51 PM EST URINE SEDIMENT STAT 01/29/2025 9:51 PM EST TROPONIN STAT 01/29/2025 9:05 PM EST VENOUS BLOOD GAS STAT 01/29/2025 9:05 PM EST SARS-COV-2, INFLUENZA A/B, PCR HANNAH STAT 01/29/2025 8:43 PM EST COVID PANDEMIC RESPIRATORY VIRAL ORDER (PRO) STAT 01/29/2025 8:43 PM EST LAB ADD-ON STAT 01/29/2025 8:26 PM EST XR CHEST PORTABLE Timed 01/29/2025 8:1 5 PM EST ECG 12-LEAD STAT 01/29/2025 8:15 PM EST PT-INR STAT 01/29/2025 8:10 PM EST LACTATE (BLOOD GAS) STAT 01/29/2025 8 :05 PM EST BLOOD CULTURE, ROUTINE STAT 5 8:05 PM EST BLOOD CULTURE, ROUTINE STAT 5 8:05 PM EST CBC AND DIFFERENTIAL STAT 01/29/2025 8:05 PM EST LFTS (HEPATIC PANEL) STAT 01/29/2025 8:05 PM EST CBC AND DIFFERENTIAL STAT 01/29/2025 8:05 PM EST TROPONIN STAT 01/29/2025 8:05 PM EST NT-PROBNP STAT 01/29/2025 8:05 PM EST LIPASE STAT 01/29/2025 8:05 PM EST BASIC METABOLIC PANEL (BMP) STAT 01/29/2025 8:05 PM EST US BEDSIDE Routine 01/29/2025 7:51 PM EST documented in this encounter Results * (ABNORMAL) CBC and Differential (02/04/2025 5:07 AM EST) WBC 4.40 4.00 - 11.00 K/uL 02/04/2025 6:08 AM [facility] RBC 3.06(L) 4.00 - 5.20 M/uL 02/04/2025 6:08 AM [facility] Hemoglobin 8.5(L) 12.0 - 16.0 g/dL 02/04/2025 6:08 AM [facility] Hematocrit 28.8(L) 36.0 - 46.0 % 02/04/2025 6:08 AM [facility] MCV 94.1 80.0 - 100.0 fL 02/04/2025 6:08 AM [facility] MCH 27.8 27.0 - 31.0 pg 02/04/2025 6:08 AM [facility] MCHC 29.5(L) 32.0 - 36.0 g/dL 02/04/2025 6:08 AM [facility] MPV 9.9 8.4 - 12.0 fL 02/04/2025 6:08 AM [facility] RDW-CV 15.4(H) 11.5 - 14.5 % 02/04/2025 6:08 AM [facility] PLT 297 150 - 450 K/uL 02/04/2025 6:08 AM [facility] Neutrophils 50.0 % 02/04/2025 6:08 AM [facility] Lymphocytes 39.5 % 02/04/2025 6:08 AM [facility] Comment:Few atypical lymphoc ytes seen. Monocytes 8.9 % 02/04/2025 6:08 AM [facility] Eosinophils 0.7 % 02/04/2025 6:08 AM [facility] Basophils 0.2 % 02/04/2025 6:08 AM [facility] Imm Grans 0.7 % 02/04/2025 6:08 AM [facility] NRBC 0.0 <=0.0 /100 WBCs 02/04/2025 6:08 AM [facility] Absolute Neutrophils 2.20 1.92 - 7.60 K/uL 02/04/2025 6:08 AM [facility] Absolute Lymphocytes 1.74 0.72 - 4.10 K/uL 02/04/2025 6:08 AM [facility] Absolute Monocytes 0.39 0.16 - 1.10 K/uL 02/04/2025 6:08 AM [facility] Absolute Eosinophils 0.03 0.00 - 0.50 K/uL 02/04/2025 6:08 AM [facility] Absolute Basophils 0.01 0.00 - 0.15 K/uL 02/04/2025 6:08 AM [facility] Absolute Imm Grans 0.03 0.00 - 0.09 K/uL 02/04/2025 6:08 AM [facility] Absolute NRBC 0.00 <=0.00 K cells/uL 02/04/2025 6:08 AM [facility] Absolute Neutrophils 2.20 1.92 - 7.60 K/uL 02/04/2025 6:08 AM [facility] Comment:Automated cell count . Manual ANC may differ if performed. Diff Type Auto 02/04/2025 6:08 AM [facility] Blood (Blood) Venipuncture / Unknown 02/04/2025 5:07 AM EST 02/04/2025 5:12 AM EST us Christa Mcclure PA-C, MS LAB BLOOD BKR ORD ERABLES Final Result [facility] [address] [place] [address] * (ABNORMAL) Basic Metabolic Panel (BMP) (02/04/2025 5:07 AM EST) Sodium 141 136 - 145 mmol/L 02/04/2025 5:46 AM [facility] Potassium 4.3 3.4 - 5.1 mmol/L 02/04/2025 5:46 AM [facility] Chloride 96(L) 98 - 107 mmol/L 02/04/2025 5:46 AM [facility] CO2 27 20 - 31 mmol/L 02/04/2025 5:46 AM [facility] BUN 77(H) 6 - 23 mg/dL 02/04/2025 5:46 AM [facility] Creatinine 3.70(H) 0.50 - 1.00 mg/dL 02/04/2025 5:46 AM [facility] Glucose 127(H) 70 - 99 mg/dL 02/04/2025 5:46 AM [facility] Calcium 9.1 8.5 - 10.5 mg/dL 02/04/2025 5:46 AM [facility] eGFR 12(L) >59 mL/min/1.7 3m2 02/04/2025 5:46 AM [facility] Comment:Estimated glomerular filtration rate calculated using the CKD-EPI refit equation. Anion Gap 18(H) 3 - 17 mmol/L 02/04/2025 5:46 AM [facility] Blood (Blood) Venipuncture / Unknown 02/04/2025 5:07 AM EST 02/04/2025 5:12 AM EST us Christa Mcclure PA-C, MS LAB BLOOD BKR ORD ERABLES Final Result [facility] [address] [place] [address] * Cortisol (02/04/2025 5:07 AM EST) Cortisol 7.3 See comment ug/dL 02/04/2025 5:46 AM [facility] Comment: NORMALS: 8AM-12PM = 5-25 ug/dL 12PM-8PM = 5-15 ug/dL 8PM-8AM = <10 ug/dL Cortisol levels may be affected by a variety of factors and should be interpreted in the context of the individual patient. A known interferent in this immunoassay is prednisolone (results may be falsely high by 5-8 %). Fludrocortisone (Florinef, 9-alpha fluorocortisol) does not interfere. Blood (Blood) Venipuncture / Unknown 02/04/2025 5:07 AM EST 02/04/2025 5:12 AM EST us Christa Mcclure PA-C, MS LAB BLOOD BKR ORD ERABLES Final Result [address] [address] * XR Abdomen Series Supine with Decubitus/Erect and Single View Chest (02/03/2025 6:45 PM EST) Anatomical Region Laterality Modality Abdomen, Chest Computed Radiogr aphy 02/03/2025 6:48 PM EST Impressions 02/03/2025 6:52 PM EST 1. Left lower lobe atelectasis. No consolidation. 2. No mechanical bowel obstruction is identified. Moderate fecal loading could represent constipation in the proper clinical setting. Narrative 02/03/2025 6:52 PM EST XR ABDOMEN SERIES SUPINE WITH DECUBITIS/ERECT AND SINGLE VIEW CHEST Referring clinician's provided indication for this examination in [facility]: Abdominal distension; 75 yo female w/ mid abdominal pain after QUEENIE. COMPARISON: Chest radiograph dated January 29, 2025. Ultrasound renal dated June 10, 2024. FINDINGS: Devices and lines/tubes: Devices: No devices are identified. Lines/tubes: No lines/tubes are present. Heart and mediastinum: The heart is enlarged. Atherosclerotic calcifications at the aortic arch. Normal left-sided aortic arch. There is no acute mediastinal abnormality. No acute hilar abnormality. Lungs: No lobar consolidation, nodules or masses. Minor left lower lobe atelectasis is identified. Abdomen: The bowel gas pattern is without evidence of obstruction. There is no evidence of colonic thumbprinting. Moderate fecal loading without colonic distention. There is no evidence of free intraperitoneal air. There is no pneumatosis, or portal venous gas. No intraabdominal calcifications are present. Vascular calcifications are present. Multiple pelvic phleboliths. Bones: The visualized osseous structures reveal no acute abnormality. Vertebral endplate degenerative changes are present. Soft Tissues: No acute soft tissue abnormality. Procedure Note Nine, Loi Stokes MD - 02/03/2025 XR ABDOMEN SERIES SUPINE WITH DECUBITIS/ERECT AND SINGLE VIEW CHEST Referring clinician's provided indication for this examination in Epic:Abdominal distension; 75 yo female w/ mid abdominal pain after QUEENIE. COMPARISON: Chest radiograph dated January 29, 2025. Ultrasound renaldated June 10, 2024. FINDINGS: Devices and lines/tubes: Devices: No devices are identified. Lines/tubes: No lines/tubes are present. Heart and mediastinum: The heart is enlarged. Atheroscleroticcalcifications at the aortic arch. Normal left-sided aortic arch. Thereis no acute mediastinal abnormality. No acute hilar abnormality. Lungs: No lobar consolidation, nodules or masses. Minor left lower lobeatelectasis is identified. Abdomen: The bowel gas pattern is without evidence of obstruction. Thereis no evidence of colonic thumbprinting. Moderate fecal loading withoutcolonic distention. There is no evidence of free intraperitoneal air.There is no pneumatosis, or portal venous gas. No intraabdominalcalcifications are present. Vascular calcifications are present. Multiplepelvic phleboliths. Bones: The visualized osseous structures reveal no acute abnormality.Vertebral endplate degenerative changes are present. Soft Tissues: No acute soft tissue abnormality. IMPRESSION: 1. Left lower lobe atelectasis. No consolidation. 2. No mechanical bowel obstruction is identified. Moderate fecal loadingcould represent constipation in the proper clinical setting. us Christa Mcclure PA-C, MS IMG XR ABDOMEN F inal Result * RIGHT AND LEFT HEART CATHETERIZATION WITH POSSIBLE LVGRAM (02/03/2025 1:48 PM EST) Anatomical Region Laterality Modality X-Ray Angiograph y Narrative 02/03/2025 2:11 PM EST Procedure: Right and left heart catheterization, coronary angiogram. Findings: PA pressure 29/11 mean of 16 Pulmonary wedge pressure mean of 9 RV pressure 28/6 RA pressure mean of 5 LV pressure 187/11 Aortic pressure 183/66 Cardiac output arterial saturation 100% PA sat 79% Alexus cardiac output 4.9 cardiac index 2.7 Coronary angiogram Left main normal LAD minimal irregularities Circumflex minimal irregularities RCA patent RCA stent right dominant minimal irregularities Conclusion: Normal filling pressures. No significant obstructive coronary artery disease. Plan: Not sure why she had pulmonary edema. She does have significant hypertension. I would optimize her blood pressure. It was high today we need to restart her meds and we will adjust tomorrow. I do not think her mitral regurgitation is severe. It was more moderate on QUEENIE and with her normal filling pressures with no V wave I do not think it is severe. Lets just medically manage her. Study Details 75-year-old woman who has had pulmonary edema congestive heart failure has moderate mitral regurgitation. Has the flu here. They were working her up for MitraClip and while she is here we figured we should do a QUEENIE and a right left heart catheterization to better evaluate her mitral regurgitation. us Yomi Dawn MD CV CARDIAC CATH ORDERABLES Final Result * (ABNORMAL) POCT Venous Blood Gas (02/03/2025 1:40 PM EST) pH 7.44(H) 7.30 - 7.40 02/05/2025 4:39 PM [facility] PCO2 44 38 - 50 mm[Hg] 02/05/2025 4:39 PM [facility] PO2 37 35 - 50 mm[Hg] 02/05/2025 4:39 PM [facility] Base Excess 5(H) 0 - 3 mmol/L 02/05/2025 4:39 PM [facility] sO2 72 60 - 85 % 02/05/2025 4:39 PM [facility] Bicarbonate 30 23 - 30 mmol/L 02/05/2025 4:39 PM [facility] Sodium 136 136 - 145 mmol/L 02/05/2025 4:39 PM [facility] Potassium 4.3 3.4 - 5.1 mmol/L 02/05/2025 4:39 PM EST [facility] Blood (Blood) 02/03/2025 1:4 0 PM EST 02/05/2025 4:39 PM EST Erik Parry MD LAB POCT DOCKED DEVICE UNSOLICTED RESULTS Final Result Performing Organization Address [facility]/ZIP Co de Phone Number [address] [address] * (ABNORMAL) POCT Arterial Blood Gas (02/03/2025 1:40 PM EST) Base Excess 5.0(H) 0 - 3 mmol/L 02/03/2025 2:08 PM EST [facility] SO2 72(L) 95 - 98 % 02/03/2025 2:08 PM [facility] Bicarbonate 30(H) 22 - 26 mmol/L 02/03/2025 2:08 PM [facility] Sodium 136 136 - 145 mmol/L 02/03/2025 2:08 PM [facility] Potassium 4.3 3.4 - 5.1 mmol/L 02/03/2025 2:08 PM [facility] Blood (Blood) 02/03/2025 1:4 0 PM EST 02/03/2025 2:08 PM EST us Erik Parry MD LAB POCT DOCKED DEVICE UNSOLICTED RESULTS Final Result Performing Organization Address [facility]/ZIP Co de Phone Number [address] [address] * QUEENIE COMP W/ COLOR FLOW AND COMP DOPPLER (02/03/2025 11:39 AM EST) Body Surface Area 1.83 m2 Height 173 cm Weight 70 kg Systolic BP 121 mmHg Diastolic BP 83 mmHg Mitral Valve Aliasing Velocity 77.0 cm/s Mitral Valve PISA Radius 0.60 cm Mitral Valve Regurgitation Time Volume Integral 195.0 cm Mitral Valve Peak Velocity 538.0 cm/s Mitral Valve EROA 0.32 cm2 Mitral Valve Regurgitant Volume PISA Equation 63 ml Ejection Fraction 45 50 - 75 % Anatomical Region Laterality Modality Heart Ultrasound, Ultr asound Narrative 02/03/2025 12:15 PM EST Mild global LV dysfunction EF 45 to 50%. Moderate to severe eccentric mitral regurgitation. PISA was performed. Regurgitant volume was around 50 to 60 cc. Other valves appear to function normally. Moderate to severe left atrial enlargement. No change compared to transthoracic study. Right left heart catheterization is a scheduled same day and will be reported separately. Left Ventricle The left ventricle is dilated. There is normal wall thickness. The LV ejection fraction is 45% (visually estimated). Right Ventricle The right ventricle is normal in size. There is normal right ventricular systolic function. Left Atrium The left atrium is dilated. There are normal flow patterns in the pulmonary vein. Right Atrium The right atrium is normal in size. Mitral Valve There is mitral valve thickening. There is no mitral stenosis. There is moderate mitral regurgitation. Tricuspid Valve The tricuspid valve appears normal. There is no tricuspid stenosis. There is trace tricuspid regurgitation. Aortic Valve The aortic valve is tricuspid. There is leaflet thickening. There is no aortic stenosis. There is trace aortic regurgitation. The visualized portions of the thoracic aorta appear normal in size. Pulmonic Valve The pulmonic valve appears normal. There is no pulmonic stenosis. There is trace pulmonic regurgitation. General Findings The image quality was good (2). Technique(s) used in the evaluation: Multiplane, Color flow Doppler and Spectral Doppler. Benzocaine spray and propofol used during this echo procedure. For more information regarding the medications administered, please refer to the [facility] MAR. Meds reconciled and timeout performed and reviewed (see chart). Consent was obtained from: patient Consent was obtained by: Yomi Dawn MD. Probe-placing MD: Yomi Dawn MD. Probe #: 1 Machine #: [id number] The predominant rhythm during the study was sinus. Patient tolerated the procedure well. No adverse reaction to medication was noted. . No complications observed during the procedure. There were no probe complications noted. Comparison Findings Compared to prior TTE on 12/30/2024, IAS/IVS The interatrial septum appears normal. The interventricular septum appears normal. us Yomi Dawn MD CV ECHO ORDERABLES Final Re sult * (ABNORMAL) CBC and Differential (02/03/2025 4:25 AM EST) WBC 3.75(L) 4.00 - 11.00 K/uL 02/03/2025 5:43 AM [facility] RBC 3.04(L) 4.00 - 5.20 M/uL 02/03/2025 5:43 AM [facility] Hemoglobin 8.3(L) 12.0 - 16.0 g/dL 02/03/2025 5:43 AM [facility] Hematocrit 28.9(L) 36.0 - 46.0 % 02/03/2025 5:43 AM [facility] MCV 95.1 80.0 - 100.0 fL 02/03/2025 5:43 AM [facility] MCH 27.3 27.0 - 31.0 pg 02/03/2025 5:43 AM [facility] MCHC 28.7(L) 32.0 - 36.0 g/dL 02/03/2025 5:43 AM [facility] MPV 10.6 8.4 - 12.0 fL 02/03/2025 5:43 AM [facility] RDW-CV 15.3(H) 11.5 - 14.5 % 02/03/2025 5:43 AM [facility] PLT 261 150 - 450 K/uL 02/03/2025 5:43 AM [facility] Neutrophils 40.8 % 02/03/2025 5:43 AM [facility] Lymphocytes 44.3 % 02/03/2025 5:43 AM [facility] Monocytes 12.8 % 02/03/2025 5:43 AM [facility] Eosinophils 1.3 % 02/03/2025 5:43 AM [facility] Basophils 0.3 % 02/03/2025 5:43 AM [facility] Imm Grans 0.5 % 02/03/2025 5:43 AM [facility] NRBC 0.0 <=0.0 /100 WBCs 02/03/2025 5:43 AM [facility] Absolute Neutrophils 1.53(L) 1.92 - 7.60 K/uL 02/03/2025 5:43 AM [facility] Comment:The reference range for individuals with the Rubi null phenotype (Fy(a-b-)) is 1.21-5.39 K/uL. Absolute Lymphocytes 1.66 0.72 - 4.10 K/uL 02/03/2025 5:43 AM [facility] Absolute Monocytes 0.48 0.16 - 1.10 K/uL 02/03/2025 5:43 AM [facility] Absolute Eosinophils 0.05 0.00 - 0.50 K/uL 02/03/2025 5:43 AM [facility] Absolute Basophils 0.01 0.00 - 0.15 K/uL 02/03/2025 5:43 AM [facility] Absolute Imm Grans 0.02 0.00 - 0.09 K/uL 02/03/2025 5:43 AM [facility] Absolute NRBC 0.00 <=0.00 K cells/uL 02/03/2025 5:43 AM [facility] Absolute Neutrophils 1.53(L) 1.92 - 7.60 K/uL 02/03/2025 5:43 AM [facility] Comment:Automated cell count . Manual ANC may differ if performed. Diff Type Auto 02/03/2025 5:43 AM [facility] Blood (Blood) Venipuncture / Unknown 02/03/2025 4:25 AM EST 02/03/2025 4:45 AM EST us Ruddy Umaña [facility] LAB BLOOD BKR ORDERABLES Final Result [facility] [address] [place] [address] * (ABNORMAL) Phosphorus (02/03/2025 4:25 AM EST) Phosphorus 4.9(H) 2.5 - 4.5 mg/dL 02/03/2025 5:09 AM [facility] Blood (Blood) Venipuncture / Unknown 02/03/2025 4:25 AM EST 02/03/2025 4:45 AM EST us Ruddy Umaña CNP LAB BLOOD BKR ORDERABLES Final Result Performing Organization Address City/[facility]/ZIP Co de Phone Number [address] [address] * Magnesium (02/03/2025 4:25 AM EST) Magnesium 2.0 1.7 - 2.6 mg/dL 02/03/2025 5:09 AM [facility] Blood (Blood) Venipuncture / Unknown 02/03/2025 4:25 AM EST 02/03/2025 4:45 AM EST Ruddy Umaña CNP LAB BLOOD BKR ORDERABLES Final Result Performing Organization Address [facility] Co de Phone Number [address] [address] * (ABNORMAL) Basic Metabolic Panel (BMP) (02/03/2025 4:25 AM EST) Sodium 136 136 - 145 mmol/L 02/03/2025 5:09 AM [facility] Potassium 4.2 3.4 - 5.1 mmol/L 02/03/2025 5:09 AM [facility] Chloride 97(L) 98 - 107 mmol/L 02/03/2025 5:09 AM [facility] CO2 26 20 - 31 mmol/L 02/03/2025 5:09 AM [facility] BUN 69(H) 6 - 23 mg/dL 02/03/2025 5:09 AM [facility] Creatinine 3.30(H) 0.50 - 1.00 mg/dL 02/03/2025 5:09 AM [facility] Glucose 135(H) 70 - 99 mg/dL 02/03/2025 5:09 AM [facility] Calcium 9.3 8.5 - 10.5 mg/dL 02/03/2025 5:09 AM [facility] eGFR 14(L) >59 mL/min/1.7 3m2 02/03/2025 5:09 AM [facility] Comment:Estimated glomerular filtration rate calculated using the CKD-EPI refit equation. Anion Gap 13 3 - 17 mmol/L 02/03/2025 5:09 AM [facility] Blood (Blood) Venipuncture / Unknown 02/03/2025 4:25 AM EST 02/03/2025 4:45 AM EST us Ruddy Umaña [facility] LAB BLOOD BKR ORDERABLES Final Result [facility] [address], [place] [id number] * (ABNORMAL) CBC and Differential (02/02/2025 4:17 AM EST) WBC 3.00(L) 4.00 - 11.00 K/uL 02/02/2025 4:33 AM [facility] RBC 3.05(L) 4.00 - 5.20 M/uL 02/02/2025 4:33 AM [facility] Hemoglobin 8.4(L) 12.0 - 16.0 g/dL 02/02/2025 4:33 AM [facility] Hematocrit 29.1(L) 36.0 - 46.0 % 02/02/2025 4:33 AM [facility] MCV 95.4 80.0 - 100.0 fL 02/02/2025 4:33 AM [facility] MCH 27.5 27.0 - 31.0 pg 02/02/2025 4:33 AM [facility] MCHC 28.9(L) 32.0 - 36.0 g/dL 02/02/2025 4:33 AM [facility] MPV 10.4 8.4 - 12.0 fL 02/02/2025 4:33 AM [facility] RDW-CV 15.5(H) 11.5 - 14.5 % 02/02/2025 4:33 AM [facility] PLT 235 150 - 450 K/uL 02/02/2025 4:33 AM [facility] Neutrophils 44.4 % 02/02/2025 4:33 AM [facility] Lymphocytes 42.3 % 02/02/2025 4:33 AM [facility] Monocytes 11.7 % 02/02/2025 4:33 AM [facility] Eosinophils 1.3 % 02/02/2025 4:33 AM [facility] Basophils 0.0 % 02/02/2025 4:33 AM [facility] Imm Grans 0.3 % 02/02/2025 4:33 AM [facility] NRBC 0.0 <=0.0 /100 WBCs 02/02/2025 4:33 AM [facility] Absolute Neutrophils 1.33(L) 1.92 - 7.60 K/uL 02/02/2025 4:33 AM [facility] Comment:The reference range for individuals with the Rubi null phenotype (Fy(a-b-)) is 1.21-5.39 K/uL. Absolute Lymphocytes 1.27 0.72 - 4.10 K/uL 02/02/2025 4:33 AM [facility] Absolute Monocytes 0.35 0.16 - 1.10 K/uL 02/02/2025 4:33 AM [facility] Absolute Eosinophils 0.04 0.00 - 0.50 K/uL 02/02/2025 4:33 AM [facility] Absolute Basophils 0.00 0.00 - 0.15 K/uL 02/02/2025 4:33 AM [facility] Absolute Imm Grans 0.01 0.00 - 0.09 K/uL 02/02/2025 4:33 AM [facility] Absolute NRBC 0.00 <=0.00 K cells/uL 02/02/2025 4:33 AM [facility] Absolute Neutrophils 1.33(L) 1.92 - 7.60 K/uL 02/02/2025 4:33 AM [facility] Comment:Automated cell count . Manual ANC may differ if performed. Diff Type Auto 02/02/2025 4:33 AM [facility] Blood (Blood) Venipuncture / Unknown 02/02/2025 4:17 AM EST 02/02/2025 4:21 AM EST Ruddy Umaña [employer] LAB BLOOD BKR ORDERABLES Final Result Performing Organization Address [facility]/ZIP Co de Phone Number [address] [address] * Phosphorus (02/02/2025 4:17 AM EST) Phosphorus 3.5 2.5 - 4.5 mg/dL 02/02/2025 4:44 AM EST [facility] Blood (Blood) Venipuncture / Unknown 02/02/2025 4:17 AM EST 02/02/2025 4:21 AM EST Ruddy Umaña [employer] LAB BLOOD BKR ORDERABLES Final Result Performing Organization Address [facility] de Phone Number [address] [address] * Magnesium (02/02/2025 4:17 AM EST) Magnesium 2.0 1.7 - 2.6 mg/dL 02/02/2025 4:44 AM EST [facility] Blood (Blood) Venipuncture / Unknown 02/02/2025 4:17 AM EST 02/02/2025 4:21 AM EST Ruddy Umaña CNP LAB BLOOD BKR ORDERABLES Final Result Performing Organization Address [facility] de Phone Number [address] [address] * (ABNORMAL) Basic Metabolic Panel (BMP) (02/02/2025 4:17 AM EST) Sodium 140 136 - 145 mmol/L 02/02/2025 4:44 AM EST [facility] Potassium 4.2 3.4 - 5.1 mmol/L 02/02/2025 4:44 AM EST [facility] Chloride 103 98 - 107 mmol/L 02/02/2025 4:44 AM EST [facility] CO2 24 20 - 31 mmol/L 02/02/2025 4:44 AM [facility] BUN 59(H) 6 - 23 mg/dL 02/02/2025 4:44 AM [facility] Creatinine 3.20(H) 0.50 - 1.00 mg/dL 02/02/2025 4:44 AM [facility] Glucose 125(H) 70 - 99 mg/dL 02/02/2025 4:44 AM [facility] Calcium 9.2 8.5 - 10.5 mg/dL 02/02/2025 4:44 AM [facility] eGFR 15(L) >59 mL/min/1.7 3m2 02/02/2025 4:44 AM [facility] Comment:Estimated glomerular filtration rate calculated using the CKD-EPI refit equation. Anion Gap 13 3 - 17 mmol/L 02/02/2025 4:44 AM [facility] Blood (Blood) Venipuncture / Unknown 02/02/2025 4:17 AM EST 02/02/2025 4:21 AM EST Ruddy Umaña [facility] LAB BLOOD BKR ORDERABLES Final Result Performing Organization Address City/[facility]/ZIP Co de Phone Number [address] [address] * Phosphorus (02/01/2025 3:41 PM EST) Phosphorus 2.6 2.5 - 4.5 mg/dL 02/01/2025 4:10 PM [facility] Blood (Blood) Venipuncture / Unknown 02/01/2025 3:41 PM EST 02/01/2025 3:45 PM EST Ruddy Umaña [facility] LAB BLOOD BKR ORDERABLES Final Result [address] [address] * Magnesium (02/01/2025 3:41 PM EST) Magnesium 2.0 1.7 - 2.6 mg/dL 02/01/2025 4:10 PM [facility] Blood (Blood) Venipuncture / Unknown 02/01/2025 3:41 PM EST 02/01/2025 3:45 PM EST Ruddy Umaña CNP LAB BLOOD BKR ORDERABLES Final Result [address] [address] * (ABNORMAL) Basic Metabolic Panel (BMP) (02/01/2025 3:41 PM EST) Sodium 141 136 - 145 mmol/L 02/01/2025 4:10 PM [facility] Potassium 4.9 3.4 - 5.1 mmol/L 02/01/2025 4:10 PM [facility] Chloride 101 98 - 107 mmol/L 02/01/2025 4:10 PM [facility] CO2 23 20 - 31 mmol/L 02/01/2025 4:10 PM [facility] BUN 56(H) 6 - 23 mg/dL 02/01/2025 4:10 PM [facility] Creatinine 3.40(H) 0.50 - 1.00 mg/dL 02/01/2025 4:10 PM [facility] Glucose 158(H) 70 - 99 mg/dL 02/01/2025 4:10 PM [facility] Calcium 9.3 8.5 - 10.5 mg/dL 02/01/2025 4:10 PM [facility] eGFR 14(L) >59 mL/min/1.7 3m2 02/01/2025 4:10 PM [facility] Comment:Estimated glomerular filtration rate calculated using the CKD-EPI refit equation. Anion Gap 17 3 - 17 mmol/L 02/01/2025 4:10 PM [facility] Blood (Blood) Venipuncture / Unknown 02/01/2025 3:41 PM EST 02/01/2025 3:45 PM EST us Ruddy Umaña CNP LAB BLOOD BKR ORDERABLES Final Result [facility] [address], [place] [id number] * (ABNORMAL) CBC and Differential (02/01/2025 4:23 AM EST) WBC 3.03(L) 4.00 - 11.00 K/uL 02/01/2025 4:48 AM [facility] RBC 2.74(L) 4.00 - 5.20 M/uL 02/01/2025 4:48 AM [facility] Hemoglobin 7.6(L) 12.0 - 16.0 g/dL 02/01/2025 4:48 AM [facility] Hematocrit 26.6(L) 36.0 - 46.0 % 02/01/2025 4:48 AM [facility] MCV 97.1 80.0 - 100.0 fL 02/01/2025 4:48 AM [facility] MCH 27.7 27.0 - 31.0 pg 02/01/2025 4:48 AM [facility] MCHC 28.6(L) 32.0 - 36.0 g/dL 02/01/2025 4:48 AM [facility] MPV 10.5 8.4 - 12.0 fL 02/01/2025 4:48 AM [facility] RDW-CV 15.7(H) 11.5 - 14.5 % 02/01/2025 4:48 AM [facility] PLT 217 150 - 450 K/uL 02/01/2025 4:48 AM [facility] Neutrophils 60.4 % 02/01/2025 4:48 AM [facility] Lymphocytes 28.7 % 02/01/2025 4:48 AM [facility] Monocytes 8.3 % 02/01/2025 4:48 AM [facility] Eosinophils 2.0 % 02/01/2025 4:48 AM [facility] Basophils 0.3 % 02/01/2025 4:48 AM [facility] Imm Grans 0.3 % 02/01/2025 4:48 AM [facility] NRBC 0.0 <=0.0 /100 WBCs 02/01/2025 4:48 AM [facility] Absolute Neutrophils 1.83(L) 1.92 - 7.60 K/uL 02/01/2025 4:48 AM [facility] Comment:The reference range for individuals with the Rubi null phenotype (Fy(a-b-)) is 1.21-5.39 K/uL. Absolute Lymphocytes 0.87 0.72 - 4.10 K/uL 02/01/2025 4:48 AM [facility] Absolute Monocytes 0.25 0.16 - 1.10 K/uL 02/01/2025 4:48 AM [facility] Absolute Eosinophils 0.06 0.00 - 0.50 K/uL 02/01/2025 4:48 AM [facility] Absolute Basophils 0.01 0.00 - 0.15 K/uL 02/01/2025 4:48 AM [facility] Absolute Imm Grans 0.01 0.00 - 0.09 K/uL 02/01/2025 4:48 AM [facility] Absolute NRBC 0.00 <=0.00 K cells/uL 02/01/2025 4:48 AM [facility] Absolute Neutrophils 1.83(L) 1.92 - 7.60 K/uL 02/01/2025 4:48 AM [facility] Comment:Automated cell count . Manual ANC may differ if performed. Diff Type Auto 02/01/2025 4:48 AM [facility] Blood (Blood) Venipuncture / Unknown 02/01/2025 4:23 AM EST 02/01/2025 4:40 AM EST us Ruddy Umaña [employer] LAB BLOOD BKR ORDERABLES Final Result [facility] [address] [place] [address] * Phosphorus (02/01/2025 4:23 AM EST) Phosphorus 3.4 2.5 - 4.5 mg/dL 02/01/2025 5:21 AM [facility] Blood (Blood) Venipuncture / Unknown 02/01/2025 4:23 AM EST 02/01/2025 4:40 AM EST us Ruddy Umaña CNP LAB BLOOD BKR ORDERABLES Final Result Performing Organization Address City/[facility]/ZIP Co de Phone Number [address] [address] * Magnesium (02/01/2025 4:23 AM EST) Magnesium 2.0 1.7 - 2.6 mg/dL 02/01/2025 5:21 AM [facility] Blood (Blood) Venipuncture / Unknown 02/01/2025 4:23 AM EST 02/01/2025 4:40 AM EST Ruddy Umaña CNP LAB BLOOD BKR ORDERABLES Final Result Performing Organization Address [facility]/ZIP Co de Phone Number [address] [address] * (ABNORMAL) Basic Metabolic Panel (BMP) (02/01/2025 4:23 AM EST) Sodium 144 136 - 145 mmol/L 02/01/2025 5:21 AM [facility] Potassium 3.5 3.4 - 5.1 mmol/L 02/01/2025 5:21 AM [facility] Chloride 106 98 - 107 mmol/L 02/01/2025 5:21 AM [facility] CO2 23 20 - 31 mmol/L 02/01/2025 5:21 AM [facility] BUN 54(H) 6 - 23 mg/dL 02/01/2025 5:21 AM [facility] Creatinine 3.00(H) 0.50 - 1.00 mg/dL 02/01/2025 5:21 AM [facility] Glucose 214(H) 70 - 99 mg/dL 02/01/2025 5:21 AM [facility] Calcium 8.7 8.5 - 10.5 mg/dL 02/01/2025 5:21 AM [facility] eGFR 16(L) >59 mL/min/1.7 3m2 02/01/2025 5:21 AM EST [facility] Comment:Estimated glomerular filtration rate calculated using the CKD-EPI refit equation. Anion Gap 15 3 - 17 mmol/L 02/01/2025 5:21 AM EST [facility] Blood (Blood) Venipuncture / Unknown 02/01/2025 4:23 AM EST 02/01/2025 4:40 AM EST us Ruddy Umaña CNP LAB BLOOD BKR ORDERABLES Final Result [address] [address] * ECG 12-LEAD (01/31/2025 2:21 PM EST) Ventricular Rate EKG/MIN 48 BPM [facility] Atrial Rate 48 BPM [facility] ME Interval 142 ms [facility] QRS Duration 78 ms [facility] QT Interval 588 ms [facility] QTC Interval 525 ms [facility] P [place] 58 degrees [facility] R Wave [place] 25 degrees [facility] T Wave [place] 184 degrees [facility] 01/31/2025 2:21 PM EST 02/02/2025 3:18 PM EST Narrative [facility] - 02/02/2025 3:18 PM EST Sinus bradycardia ST & Marked T wave abnormality, consider anterolateral ischemia Prolonged QT Abnormal ECG When compared with ECG of 29-Jan-2025 20:15, Vent. rate has decreased by [address] now depressed in Anterior leads T wave inversion now evident in Inferior leads T wave inversion more evident in Anterolateral leads Confirmed by Yomi Dawn ([id number]) on 02/02/2025 3:18:31 PM us Ruddy Umaña CNP ECG ORDERABLES Final Res ult [facility] * (ABNORMAL) Troponin (01/31/2025 2:10 PM EST) Troponin-T HS Gen5 57(H) 0 - 9 ng/L 01/31/2025 2:38 PM [facility] Blood (Blood) Venipuncture / Unknown 01/31/2025 2:10 PM EST 01/31/2025 2:18 PM EST us Ruddy Umaña [employer] LAB BLOOD BKR ORDERABLES Final Result [address] [address] * (ABNORMAL) CBC and Differential (01/31/2025 5:13 AM EST) WBC 3.53(L) 4.00 - 11.00 K/uL 01/31/2025 5:24 AM [facility] RBC 2.88(L) 4.00 - 5.20 M/uL 01/31/2025 5:24 AM [facility] Hemoglobin 8.0(L) 12.0 - 16.0 g/dL 01/31/2025 5:24 AM [facility] Hematocrit 27.9(L) 36.0 - 46.0 % 01/31/2025 5:24 AM [facility] MCV 96.9 80.0 - 100.0 fL 01/31/2025 5:24 AM [facility] MCH 27.8 27.0 - 31.0 pg 01/31/2025 5:24 AM [facility] MCHC 28.7(L) 32.0 - 36.0 g/dL 01/31/2025 5:24 AM [facility] MPV 10.5 8.4 - 12.0 fL 01/31/2025 5:24 AM [facility] RDW-CV 15.9(H) 11.5 - 14.5 % 01/31/2025 5:24 AM [facility] PLT 230 150 - 450 K/uL 01/31/2025 5:24 AM [facility] Neutrophils 65.2 % 01/31/2025 5:24 AM [facility] Lymphocytes 19.5 % 01/31/2025 5:24 AM [facility] Monocytes 11.6 % 01/31/2025 5:24 AM [facility] Eosinophils 3.1 % 01/31/2025 5:24 AM [facility] Basophils 0.6 % 01/31/2025 5:24 AM [facility] Imm Grans 0.0 % 01/31/2025 5:24 AM [facility] NRBC 0.0 <=0.0 /100 WBCs 01/31/2025 5:24 AM [facility] Absolute Neutrophils 2.30 1.92 - 7.60 K/uL 01/31/2025 5:24 AM [facility] Absolute Lymphocytes 0.69(L) 0.72 - 4.10 K/uL 01/31/2025 5:24 AM [facility] Absolute Monocytes 0.41 0.16 - 1.10 K/uL 01/31/2025 5:24 AM [facility] Absolute Eosinophils 0.11 0.00 - 0.50 K/uL 01/31/2025 5:24 AM [facility] Absolute Basophils 0.02 0.00 - 0.15 K/uL 01/31/2025 5:24 AM [facility] Absolute Imm Grans 0.00 0.00 - 0.09 K/uL 01/31/2025 5:24 AM [facility] Absolute NRBC 0.00 <=0.00 K cells/uL 01/31/2025 5:24 AM [facility] Absolute Neutrophils 2.30 1.92 - 7.60 K/uL 01/31/2025 5:24 AM [facility] Comment:Automated cell count . Manual ANC may differ if performed. Diff Type Auto 01/31/2025 5:24 AM [facility] Blood (Blood) Venipuncture / Unknown 01/31/2025 5:13 AM EST 01/31/2025 5:21 AM EST us Brynn Keller MD LAB BLOOD BKR ORDERABLES Jenny manzanares Result [facility] [address] [place] [address] * (ABNORMAL) Comprehensive Metabolic Panel (CMP) (01/31/2025 5:13 AM EST) Sodium 143 136 - 145 mmol/L 01/31/2025 5:53 AM [facility] Potassium 4.1 3.4 - 5.1 mmol/L 01/31/2025 5:53 AM [facility] Chloride 109(H) 98 - 107 mmol/L 01/31/2025 5:53 AM [facility] CO2 22 20 - 31 mmol/L 01/31/2025 5:53 AM [facility] BUN 55(H) 6 - 23 mg/dL 01/31/2025 5:53 AM [facility] Creatinine 3.20(H) 0.50 - 1.00 mg/dL 01/31/2025 5:53 AM [facility] Glucose 122(H) 70 - 99 mg/dL 01/31/2025 5:53 AM [facility] Calcium 8.8 8.5 - 10.5 mg/dL 01/31/2025 5:53 AM [facility] AST 28 <33 U/L 01/31/2025 5:53 AM [facility] ALT 30 <34 U/L 01/31/2025 5:53 AM [facility] Alkaline Phosphatase 119 40 - 130 U/L 01/31/2025 5:53 AM [facility] Bilirubin, Total 0.3 0.0 - 1.2 mg/dL 01/31/2025 5:53 AM [facility] Total Protein 6.5 6.4 - 8.3 g/dL 01/31/2025 5:53 AM [facility] Albumin 3.0(L) 3.5 - 5.2 g/dL 01/31/2025 5:53 AM [facility] Globulin 3.5 1.9 - 4.1 g/dL 01/31/2025 5:53 AM [facility] eGFR 15(L) >59 mL/min/1.7 3m2 01/31/2025 5:53 AM [facility] Comment:Estimated glomerular filtration rate calculated using the CKD-EPI refit equation. Anion Gap 12 3 - 17 mmol/L 01/31/2025 5:53 AM [facility] Blood (Blood) Venipuncture / Unknown 01/31/2025 5:13 AM EST 01/31/2025 5:21 AM EST us Brynn Keller MD LAB BLOOD BKR ORDERABLES Jenny l Result Performing Organization Address [facility]/ZIP Co de Phone Number [address] [address] * (ABNORMAL) C-Reactive Protein (CRP) (01/31/2025 5:13 AM EST) Pathologist [facility] C Reactive Protein 67.5(H) <10.0 mg/L 01/31/2025 5:53 AM EST [facility] Comment:NOTE: This reference range is for the evaluation of inflammation. Order CRP, High Sensitivity for cardiac risk status evaluation. Blood (Blood) Venipuncture / Unknown 01/31/2025 5:13 AM EST 01/31/2025 5:21 AM EST us Brynn Keller MD LAB BLOOD BKR ORDERABLES Jenny l Result Performing Organization Address [facility] Co de Phone Number [address] [address] * Thyroid Stimulating Hormone (TSH), with Reflex (01/31/2025 5:13 AM EST) Pathologist [facility] TSH 1.50 0.40 - 5.90 uIU/mL 01/31/2025 5:53 AM EST [facility] Blood (Blood) Venipuncture / Unknown 01/31/2025 5:13 AM EST 01/31/2025 5:21 AM EST us Brynn Keller MD LAB BLOOD BKR ORDERABLES Jenny l Result Performing Organization Address [facility]/ZIP Co de Phone Number [address] [address] * (ABNORMAL) NT-proBNP (01/31/2025 5:13 AM EST) Pathologist [facility] NT-ProBNP 35,603(H) 0 - 900 pg/mL 01/31/2025 6:08 AM EST [facility] Comment: Age <50 years: 0-450 pg/ml [...] body-mass index. Blood (Blood) Venipuncture / Unknown 01/31/2025 5:13 AM EST 01/31/2025 5:21 AM EST Brynn Keller MD LAB BLOOD BKR ORDERABLES Jenny l Result Performing Organization Address City/[facility]/ZIP Co de Phone Number [address] [address] * (ABNORMAL) Erythrocyte Sedimentation Rate (ESR) (01/31/2025 5:13 AM EST) Pathologist [facility] ESR 79(H) 0 - 30 mm/h 01/31/2025 5:57 AM [facility] Blood (Blood) Venipuncture / Unknown 01/31/2025 5:13 AM EST 01/31/2025 5:21 AM EST Brynn Keller MD LAB BLOOD BKR ORDERABLES Jenny l Result [address] [address] * (ABNORMAL) Ionized Calcium (01/31/2025 5:13 AM EST) Ionized Calcium 1.11(L) 1.14 - 1.30 mmol/L 01/31/2025 5:23 AM [facility] Blood (Blood, Venous) Venipuncture / Unknown 01/31/2025 5:13 AM EST 01/31/2025 5:21 AM EST Brynn Keller MD LAB BLOOD BKR ORDERABLES Jenny l Result [address] [address] * Phosphorus (01/31/2025 5:13 AM EST) Phosphorus 4.2 2.5 - 4.5 mg/dL 01/31/2025 5:53 AM EST [facility] Blood (Blood) Venipuncture / Unknown 01/31/2025 5:13 AM EST 01/31/2025 5:21 AM EST Brynn Keller MD LAB BLOOD BKR ORDERABLES Jenny l Result Performing Organization Address [facility]/ZIP Co de Phone Number [address] [address] * Magnesium (01/31/2025 5:13 AM EST) Magnesium 2.1 1.7 - 2.6 mg/dL 01/31/2025 5:53 AM EST [facility] Blood (Blood) Venipuncture / Unknown 01/31/2025 5:13 AM EST 01/31/2025 5:21 AM EST Brynn Keller MD LAB BLOOD BKR ORDERABLES Jenny l Result Performing Organization Address City/[facility]/ZIP Co de Phone Number [address] [address] * (ABNORMAL) CBC and Differential (01/30/2025 3:44 PM EST) WBC 3.85(L) 4.00 - 11.00 K/uL 01/30/2025 4:39 PM EST [facility] RBC 2.77(L) 4.00 - 5.20 M/uL 01/30/2025 4:39 PM [facility] Hemoglobin 7.8(L) 12.0 - 16.0 g/dL 01/30/2025 4:39 PM [facility] Hematocrit 26.9(L) 36.0 - 46.0 % 01/30/2025 4:39 PM [facility] MCV 97.1 80.0 - 100.0 fL 01/30/2025 4:39 PM [facility] MCH 28.2 27.0 - 31.0 pg 01/30/2025 4:39 PM [facility] MCHC 29.0(L) 32.0 - 36.0 g/dL 01/30/2025 4:39 PM [facility] MPV 10.5 8.4 - 12.0 fL 01/30/2025 4:39 PM [facility] RDW-CV 15.8(H) 11.5 - 14.5 % 01/30/2025 4:39 PM [facility] PLT 244 150 - 450 K/uL 01/30/2025 4:39 PM [facility] Neutrophils 77.6 % 01/30/2025 4:39 PM [facility] Lymphocytes 11.9 % 01/30/2025 4:39 PM [facility] Monocytes 9.4 % 01/30/2025 4:39 PM [facility] Eosinophils 0.5 % 01/30/2025 4:39 PM [facility] Basophils 0.3 % 01/30/2025 4:39 PM [facility] Imm Grans 0.3 % 01/30/2025 4:39 PM [facility] NRBC 0.0 <=0.0 /100 WBCs 01/30/2025 4:39 PM [facility] Absolute Neutrophils 2.99 1.92 - 7.60 K/uL 01/30/2025 4:39 PM [facility] Absolute Lymphocytes 0.46(L) 0.72 - 4.10 K/uL 01/30/2025 4:39 PM [facility] Absolute Monocytes 0.36 0.16 - 1.10 K/uL 01/30/2025 4:39 PM [facility] Absolute Eosinophils 0.02 0.00 - 0.50 K/uL 01/30/2025 4:39 PM [facility] Absolute Basophils 0.01 0.00 - 0.15 K/uL 01/30/2025 4:39 PM [facility] Absolute Imm Grans 0.01 0.00 - 0.09 K/uL 01/30/2025 4:39 PM [facility] Absolute NRBC 0.00 <=0.00 K cells/uL 01/30/2025 4:39 PM [facility] Absolute Neutrophils 2.99 1.92 - 7.60 K/uL 01/30/2025 4:39 PM [facility] Comment:Automated cell count . Manual ANC may differ if performed. Diff Type Auto 01/30/2025 4:39 PM [facility] Blood (Blood) Venipuncture / Unknown 01/30/2025 3:44 PM EST 01/30/2025 4:13 PM EST us Brynn Keller MD LAB BLOOD BKR ORDERABLES Jenny l Result [address] [address] * Phosphorus (01/30/2025 3:44 PM EST) Phosphorus 4.3 2.5 - 4.5 mg/dL 01/30/2025 5:30 PM [facility] Blood (Blood) Venipuncture / Unknown 01/30/2025 3:44 PM EST 01/30/2025 4:13 PM EST us Brynn Keller MD LAB BLOOD BKR ORDERABLES Jenny l Result [address] [address] * Magnesium (01/30/2025 3:44 PM EST) Magnesium 2.1 1.7 - 2.6 mg/dL 01/30/2025 5:30 PM [facility] Blood (Blood) Venipuncture / Unknown 01/30/2025 3:44 PM EST 01/30/2025 4:13 PM EST us Brynn Keller MD LAB BLOOD BKR ORDERABLES Jenny l Result Performing Organization Address [facility] Co de Phone Number [facility] [address] [place] [address] * (ABNORMAL) Basic Metabolic Panel (BMP) (01/30/2025 3:44 PM EST) Sodium 140 136 - 145 mmol/L 01/30/2025 5:30 PM [facility] Potassium 3.9 3.4 - 5.1 mmol/L 01/30/2025 5:30 PM [facility] Chloride 104 98 - 107 mmol/L 01/30/2025 5:30 PM [facility] CO2 22 20 - 31 mmol/L 01/30/2025 5:30 PM [facility] BUN 54(H) 6 - 23 mg/dL 01/30/2025 5:30 PM [facility] Creatinine 3.00(H) 0.50 - 1.00 mg/dL 01/30/2025 5:30 PM [facility] Glucose 141(H) 70 - 99 mg/dL 01/30/2025 5:30 PM [facility] Calcium 8.6 8.5 - 10.5 mg/dL 01/30/2025 5:30 PM [facility] eGFR 16(L) >59 mL/min/1.7 3m2 01/30/2025 5:30 PM [facility] Comment:Estimated glomerular filtration rate calculated using the CKD-EPI refit equation. Anion Gap 14 3 - 17 mmol/L 01/30/2025 5:30 PM [facility] Blood (Blood) Venipuncture / Unknown 01/30/2025 3:44 PM EST 01/30/2025 4:13 PM EST us Brynn Keller MD LAB BLOOD BKR ORDERABLES Jenny l Result Performing Organization Address City/[facility]/ZIP Co de Phone Number [facility] [address] [place] [address] * (ABNORMAL) CBC and Differential (01/30/2025 4:17 AM EST) WBC 5.20 4.00 - 11.00 K/uL 01/30/2025 4:29 AM [facility] RBC 2.68(L) 4.00 - 5.20 M/uL 01/30/2025 4:29 AM [facility] Hemoglobin 7.6(L) 12.0 - 16.0 g/dL 01/30/2025 4:29 AM [facility] Hematocrit 26.5(L) 36.0 - 46.0 % 01/30/2025 4:29 AM [facility] MCV 98.9 80.0 - 100.0 fL 01/30/2025 4:29 AM [facility] MCH 28.4 27.0 - 31.0 pg 01/30/2025 4:29 AM [facility] MCHC 28.7(L) 32.0 - 36.0 g/dL 01/30/2025 4:29 AM [facility] MPV 10.6 8.4 - 12.0 fL 01/30/2025 4:29 AM [facility] RDW-CV 16.0(H) 11.5 - 14.5 % 01/30/2025 4:29 AM [facility] PLT 229 150 - 450 K/uL 01/30/2025 4:29 AM [facility] Neutrophils 81.7 % 01/30/2025 4:29 AM [facility] Lymphocytes 9.0 % 01/30/2025 4:29 AM [facility] Monocytes 8.3 % 01/30/2025 4:29 AM [facility] Eosinophils 0.0 % 01/30/2025 4:29 AM [facility] Basophils 0.4 % 01/30/2025 4:29 AM [facility] Imm Grans 0.6 % 01/30/2025 4:29 AM [facility] NRBC 0.0 <=0.0 /100 WBCs 01/30/2025 4:29 AM [facility] Absolute Neutrophils 4.25 1.92 - 7.60 K/uL 01/30/2025 4:29 AM [facility] Absolute Lymphocytes 0.47(L) 0.72 - 4.10 K/uL 01/30/2025 4:29 AM [facility] Absolute Monocytes 0.43 0.16 - 1.10 K/uL 01/30/2025 4:29 AM [facility] Absolute Eosinophils 0.00 0.00 - 0.50 K/uL 01/30/2025 4:29 AM [facility] Absolute Basophils 0.02 0.00 - 0.15 K/uL 01/30/2025 4:29 AM [facility] Absolute Imm Grans 0.03 0.00 - 0.09 K/uL 01/30/2025 4:29 AM [facility] Absolute NRBC 0.00 <=0.00 K cells/uL 01/30/2025 4:29 AM [facility] Absolute Neutrophils 4.25 1.92 - 7.60 K/uL 01/30/2025 4:29 AM [facility] Comment:Automated cell count . Manual ANC may differ if performed. Diff Type Auto 01/30/2025 4:29 AM [facility] Blood (Blood) Venipuncture / Unknown 01/30/2025 4:17 AM EST 01/30/2025 4:24 AM EST us Daysi Mckenzie PA-C LAB BLOOD BKR ORDERABLE S Final Result [address] [address] * (ABNORMAL) Phosphorus (01/30/2025 4:17 AM EST) Phosphorus 5.7(H) 2.5 - 4.5 mg/dL 01/30/2025 4:55 AM [facility] Blood (Blood) Venipuncture / Unknown 01/30/2025 4:17 AM EST 01/30/2025 4:24 AM EST us Daysi Mckenzie PA-C LAB BLOOD BKR ORDERABLE S Final Result [address] [address] * Magnesium (01/30/2025 4:17 AM EST) Magnesium 2.1 1.7 - 2.6 mg/dL 01/30/2025 4:55 AM [facility] Blood (Blood) Venipuncture / Unknown 01/30/2025 4:17 AM EST 01/30/2025 4:24 AM EST us Daysi Nicole Mckenzie PA-C LAB BLOOD BKR ORDERABLE S Final Result Performing Organization Address City/[facility]/ZIP Co de Phone Number [address] [address] * (ABNORMAL) Basic Metabolic Panel (BMP) (01/30/2025 4:17 AM EST) Sodium 145 136 - 145 mmol/L 01/30/2025 4:55 AM [facility] Potassium 4.4 3.4 - 5.1 mmol/L 01/30/2025 4:55 AM [facility] Comment:NOTE: Specimen hemol yzed. Results may be falsely increased. Chloride 109(H) 98 - 107 mmol/L 01/30/2025 4:55 AM [facility] CO2 20 20 - 31 mmol/L 01/30/2025 4:55 AM [facility] BUN 58(H) 6 - 23 mg/dL 01/30/2025 4:55 AM [facility] Creatinine 3.30(H) 0.50 - 1.00 mg/dL 01/30/2025 4:55 AM [facility] Glucose 120(H) 70 - 99 mg/dL 01/30/2025 4:55 AM [facility] Calcium 8.7 8.5 - 10.5 mg/dL 01/30/2025 4:55 AM EST [facility] eGFR 14(L) >59 mL/min/1.7 3m2 01/30/2025 4:55 AM EST [facility] Comment:Estimated glomerular filtration rate calculated using the CKD-EPI refit equation. Anion Gap 16 3 - 17 mmol/L 01/30/2025 4:55 AM EST [facility] Blood (Blood) Venipuncture / Unknown 01/30/2025 4:17 AM EST 01/30/2025 4:24 AM EST us Daysi Mckenzie PA-C LAB BLOOD BKR ORDERABLE S Final Result Performing Organization Address City/[facility]/ZIP Co de Phone Number [address] [address] * MRSA NASAL SCREEN, PCR (01/30/2025 4:02 AM EST) Pathologist [facility] MRSA PCR Screen Negative for MRSA Negative for MRSA 01/30/2025 5:35 AM EST [facility] Swab (Anterior Nares) Non-Blood Collection / Unknown 01/30/2025 4:02 AM EST 01/30/2025 4:22 AM EST us Daysi Mckenzie PA-C LAB GENERAL ORDERABLES Final Result Performing Organization Address [facility]/ZIP Co de Phone Number [address] [address] * Lactate, Whole Blood (01/29/2025 11:08 PM EST) Pathologist [facility] Lactate, Whole Blood 1.9 0.5 - 2.0 mmol/L 01/29/2025 11:14 PM EST [facility] Blood (Blood, Venous) Venipuncture / Unknown 01/29/2025 11:08 PM EST 01/29/2025 11:11 PM EST us Daysi Mckenzie PA-C LAB BLOOD BKR ORDERABLE S Final Result Performing Organization Address City/[facility]/ZIP Co de Phone Number [address] [address] * (ABNORMAL) URINE SEDIMENT (01/29/2025 9:51 PM EST) WBC 0-2 0 - 9 /hpf 01/29/2025 10:05 PM [facility] RBC 0-2 0 - 2 /hpf 01/29/2025 10:05 PM [facility] Squamous Epithelial Cells 3-5(A) Not Present /hpf 01/29/2025 10:05 PM [facility] Mucus Present(A ) Not Present /hpf 01/29/2025 10:05 PM [facility] Granular Cast 1-2(A) Not Present /lpf 01/29/2025 10:05 PM [facility] Hyaline Cast 1-2 0 - 2 /lpf 01/29/2025 10:05 PM [facility] Amorphous Urate/Phosphate crystals Present(A ) Not Present /hpf 01/29/2025 10:05 PM [facility] Urine (Urine, Voided) Non-Blood Collection / Unknown 01/29/2025 9:51 PM EST 01/29/2025 9:55 PM EST us Montrell Munoz MD LAB URINE ORDERABLES Final Result [facility] [address] [place] [address] * (ABNORMAL) Urinalysis with Reflex to Urine Culture (01/29/2025 9:51 PM EST) Color Yellow Yellow 01/29/2025 9:59 PM [facility] Clarity Clear Clear 01/29/2025 9:59 PM [facility] Glucose Negative Negative 01/29/2025 9:59 PM [facility] Bilirubin Urine Negative Negative 9:59 PM [facility] Ketone Urine Negative Negative 01/29/2025 9:59 PM [facility] Specific [place] 1.020 1.001 - 1.035 01/29/2025 9:59 PM [facility] Blood 1+(A) Negative 01/29/2025 9:59 PM [facility] pH 6.0 5.0 - 8.0 01/29/2025 9:59 PM [facility] Protein 3+(A) Negative 01/29/2025 9:59 PM [facility] Nitrites Negative Negative 01/29/2025 9:59 PM [facility] Leukocyte Esterase Negative Negative 01/29/2025 9:59 PM [facility] Urobilinogen Negative Negative 01/29/2025 9:59 PM [facility] Urine (Urine, Voided) Non-Blood Collection / Unknown 01/29/2025 9:51 PM EST 01/29/2025 9:55 PM EST us Montrell Munoz MD LAB URINE ORDERABLES Final Result Performing Organization Address City/State/[facility] Co de Phone Number [address] [address] * (ABNORMAL) Venous Blood Gas (VBG) (01/29/2025 9:05 PM EST) pH, Venous 7.24(L) 7.31 - 7.41 01/29/2025 9:13 PM [facility] pCO2, Venous 53(H) 35 - 45 mm[Hg] 01/29/2025 9:13 PM [facility] pO2, Venous 42(H) 35 - 40 mm[Hg] 01/29/2025 9:13 PM [facility] Base Excess -5.0(L) -3.0 - 3.0 mmol/L 01/29/2025 9:13 PM [facility] Bicarbonate (HCO3) 23 23 - 28 mmol/L 01/29/2025 9:13 PM [facility] Oxygen Saturation, Venous 68.8 60.0 - 80.0 % 01/29/2025 9:13 PM [facility] Blood (Blood, Venous) Venipuncture / Unknown 01/29/2025 9:05 PM EST 01/29/2025 9:09 PM EST us Montrell Munoz MD LAB BLOOD BKR ORDERABLES Fi nal Result Performing Organization Address City/[facility]/ZIP Co de Phone Number [address] [address] * (ABNORMAL) Troponin (01/29/2025 9:05 PM EST) [facility] Troponin-T HS Gen5 54(H) 0 - 9 ng/L 01/29/2025 9:30 PM EST [facility] Blood (Blood) Venipuncture / Unknown 01/29/2025 9:05 PM EST 01/29/2025 9:10 PM EST Montrell Munoz MD LAB BLOOD BKR ORDERABLES Fi nal Result Performing Organization Address [facility] Co de Phone Number [address] [address] * (ABNORMAL) SARS-CoV-2, INFLUENZA A/B, PCR (01/29/2025 8:43 PM EST) [facility] SARS-CoV-2 RNA PCR Not Detected Not Detected 01/29/2025 9:20 PM [facility] Influenza A PCR Detected(A) Not Detected 01/29/2025 9:20 PM [facility] Influenza B PCR Not Detected Not Detected 01/29/2025 9:20 PM [facility] Swab (Nasopharynx, Bilateral) Non-Blood Collection / Unknown 01/29/2025 8:43 PM EST 01/29/2025 8:46 PM EST Montrell Munoz MD LAB GENERAL ORDERABLES Jenny l Result Performing Organization Address [facility]/ZIP Co de Phone Number [address] [phone] * Symptomatic Respiratory Virus Testing Panel (ED/IP) (01/29/2025 8:43 PM EST) [facility] SARS Comment 01/29/2025 8:58 PM EST [facility] Comment:This test automatica lly orders a COVID-19 PCR and may add Flu, RSV, or other viral tests based on patient clinical factors and site protocols. Results will appear below and separately in chart review when available. Swab (Nasopharynx, Bilateral) Non-Blood Collection / Unknown 01/29/2025 8:43 PM EST 01/29/2025 8:46 PM EST Montrell Munoz MD LAB GENERAL ORDERABLES Jenny l Result Performing Organization Address [facility] Co de Phone Number [address] [address] * Lab Add-On (01/29/2025 8:26 PM EST) Specimen Date/Time 01/31/2025 8:05 AM [facility] Test Requested Lipase, LFTs 01/31/2025 8:05 AM [facility] Specimen Description 01/31/2025 8:05 AM [facility] Comments 01/31/2025 8:05 AM [facility] Was this request processed? Yes 01/31/2025 8:05 AM [facility] Other (Other) 01/29/2025 8:2 6 PM EST 01/29/2025 8:26 PM EST Montrell Munoz MD LAB GENERAL ORDERABLES Jenny l Result Performing Organization Address [facility] Co de Phone Number [address] [address] * XR Chest Portable (01/29/2025 8:15 PM EST) Anatomical Region Laterality Modality Chest Computed Radiogr aphy 01/29/2025 11:2 8 PM EST Impressions 01/29/2025 11:30 PM EST Moderate pulmonary edema and small pleural effusions. Narrative 01/29/2025 11:30 PM EST XR CHEST PORTABLE Referring clinician's provided indication for this examination in Epic: Shortness of breath COMPARISON: XR CHEST PORTABLE FINDINGS: Devices/Tubes/Lines: None. Lungs: Pulmonary vascular engorgement, diffuse interstitial opacities with Sree B-lines, and perihilar haziness with lower lung predominance. Right lower lobe subsegmental atelectasis. Pleura: Small bilateral pleural effusions. No pneumothorax. Heart/Mediastinum: Unchanged cardiomegaly. Atheromatous aorta. Bones/Soft Tissues: No significant abnormality. Procedure Note Adalgisa Noyola MD - 01/29/2025 XR CHEST PORTABLE Referring clinician's provided indication for this examination in Epic:Shortness of breath COMPARISON: XR CHEST PORTABLE FINDINGS: Devices/Tubes/Lines: None. Lungs: Pulmonary vascular engorgement, diffuse interstitial opacities withKerley B-lines, and perihilar haziness with lower lung predominance. Rightlower lobe subsegmental atelectasis. Pleura: Small bilateral pleural effusions. No pneumothorax. Heart/Mediastinum: Unchanged cardiomegaly. Atheromatous aorta. Bones/Soft Tissues: No significant abnormality. IMPRESSION: Moderate pulmonary edema and small pleural effusions. us Montrell Munoz MD IMG XR CHEST Final Resul t * ECG 12-LEAD (01/29/2025 8:15 PM EST) Ventricular Rate EKG/MIN 118 BPM [facility] Atrial Rate 118 BPM [facility] ME Interval 134 ms [facility] QRS Duration 86 ms [facility] QT Interval 306 ms [facility] QTC Interval 428 ms [facility] P [place] 78 degrees [facility] R Wave [place] 47 degrees [facility] T Wave [place] 88 degrees [facility] 01/29/2025 8:15 PM EST 01/30/2025 4:46 PM EST Narrative [facility] - 01/30/2025 4:46 PM EST Sinus tachycardia Possible Left atrial enlargement Left ventricular hypertrophy ST & T wave abnormality, consider lateral ischemia Abnormal ECG When compared with ECG of 30-Dec-2024 02:25, No significant change was found Confirmed by Prakash Osullivan ([id number]) on 01/30/2025 4:46:22 PM Montrell Munoz MD ECG ORDERABLES Final Resul t [facility] * PT-INR (01/29/2025 8:10 PM EST) PT 13.0 10.0 - 13.0 sec 01/29/2025 9:07 PM [facility] INR 1.1 0.9 - 1.1 01/29/2025 9:07 PM [facility] Comment:Therapeutic Range 2. 0 - 3.5 Blood (Blood) Venipuncture / Unknown 01/29/2025 8:10 PM EST 01/29/2025 8:12 PM EST Montrell Munoz MD LAB BLOOD BKR ORDERABLES Fi nal Result Performing Organization Address City/[facility]/ZIP Co de Phone Number [address] [address] * (ABNORMAL) Hepatic Panel (LFTs) (01/29/2025 8:05 PM EST) AST 73(H) <33 U/L 01/29/2025 9:20 PM [facility] ALT 37(H) <34 U/L 01/29/2025 9:20 PM [facility] Alkaline Phosphatase 173(H) 40 - 130 U/L 01/29/2025 9:20 PM [facility] Bilirubin, Total 0.4 0.0 - 1.2 mg/dL 01/29/2025 9:20 PM [facility] Bilirubin, Direct 0.2 0.0 - 0.3 mg/dL 01/29/2025 9:20 PM [facility] Total Protein 7.4 6.4 - 8.3 g/dL 01/29/2025 9:20 PM [facility] Albumin 3.4(L) 3.5 - 5.2 g/dL 01/29/2025 9:20 PM [facility] Globulin 4.0 1.9 - 4.1 g/dL 01/29/2025 9:20 PM EST [facility] Blood (Blood) Venipuncture / Unknown 01/29/2025 8:05 PM EST 01/29/2025 8:10 PM EST us Montrell Munoz MD LAB BLOOD BKR ORDERABLES Fi nal Result Performing Organization Address City/[facility]/ZIP Co de Phone Number [address] [address] * Lipase (01/29/2025 8:05 PM EST) Lipase 41 13 - 60 U/L 01/29/2025 9:20 PM EST [facility] Blood (Blood) Venipuncture / Unknown 01/29/2025 8:05 PM EST 01/29/2025 8:10 PM EST us Montrell Munoz MD LAB BLOOD BKR ORDERABLES Fi nal Result Performing Organization Address [facility] Co de Phone Number [address] [address] * (ABNORMAL) Lactate, Whole Blood (01/29/2025 8:05 PM EST) Lactate, Whole Blood 4.5(H) 0.5 - 2.0 mmol/L 01/29/2025 8:13 PM EST [facility] Blood (Blood, Venous) Venipuncture / Unknown 01/29/2025 8:05 PM EST 01/29/2025 8:09 PM EST us Montrell Munoz MD LAB BLOOD BKR ORDERABLES Fi nal Result Performing Organization Address City/[facility]/ZIP Co de Phone Number [address] [address] * Blood Culture, Routine (01/29/2025 8:05 PM EST) Blood Culture/Test No growth at 5 days 02/03/2025 8:15 PM [facility] Blood (Blood) Venipuncture / Unknown 01/29/2025 8:05 PM EST 01/29/2025 8:09 PM EST us Montrell Munoz MD LAB MICROBIOLOGY CULTURE OR DERABLES Final Result Performing Organization Address [facility]/ZIP Co de Phone Number [address] [address] * Blood Culture, Routine (01/29/2025 8:05 PM EST) Blood Culture/Test No growth at 5 days 02/03/2025 8:15 PM [facility] Blood (Blood) Venipuncture / Unknown 01/29/2025 8:05 PM EST 01/29/2025 8:09 PM EST us Montrell Munoz MD LAB MICROBIOLOGY CULTURE OR DERABLES Final Result Performing Organization Address [facility]/ZIP Co de Phone Number [address] [address] * (ABNORMAL) CBC and Differential (01/29/2025 8:05 PM EST) Pathologist [facility] WBC 7.99 4.00 - 11.00 K/uL 01/29/2025 8:14 PM [facility] RBC 3.24(L) 4.00 - 5.20 M/uL 01/29/2025 8:14 PM [facility] Hemoglobin 9.0(L) 12.0 - 16.0 g/dL 01/29/2025 8:14 PM [facility] Hematocrit 32.8(L) 36.0 - 46.0 % 01/29/2025 8:14 PM [facility] MCV 101.2(H) 80.0 - 100.0 fL 01/29/2025 8:14 PM [facility] MCH 27.8 27.0 - 31.0 pg 01/29/2025 8:14 PM [facility] MCHC 27.4(L) 32.0 - 36.0 g/dL 01/29/2025 8:14 PM [facility] MPV 10.3 8.4 - 12.0 fL 01/29/2025 8:14 PM [facility] RDW-CV 16.0(H) 11.5 - 14.5 % 01/29/2025 8:14 PM [facility] PLT 320 150 - 450 K/uL 01/29/2025 8:14 PM [facility] Neutrophils 65.0 % 01/29/2025 8:14 PM [facility] Lymphocytes 24.0 % 01/29/2025 8:14 PM [facility] Monocytes 8.1 % 01/29/2025 8:14 PM [facility] Eosinophils 1.9 % 01/29/2025 8:14 PM [facility] Basophils 0.5 % 01/29/2025 8:14 PM [facility] Imm Grans 0.5 % 01/29/2025 8:14 PM [facility] NRBC 0.0 <=0.0 /100 WBCs 01/29/2025 8:14 PM [facility] Absolute Neutrophils 5.19 1.92 - 7.60 K/uL 01/29/2025 8:14 PM [facility] Absolute Lymphocytes 1.92 0.72 - 4.10 K/uL 01/29/2025 8:14 PM [facility] Absolute Monocytes 0.65 0.16 - 1.10 K/uL 01/29/2025 8:14 PM [facility] Absolute Eosinophils 0.15 0.00 - 0.50 K/uL 01/29/2025 8:14 PM [facility] Absolute Basophils 0.04 0.00 - 0.15 K/uL 01/29/2025 8:14 PM [facility] Absolute Imm Grans 0.04 0.00 - 0.09 K/uL 01/29/2025 8:14 PM [facility] Absolute NRBC 0.00 <=0.00 K cells/uL 01/29/2025 8:14 PM [facility] Absolute Neutrophils 5.19 1.92 - 7.60 K/uL 01/29/2025 8:14 PM [facility] Comment:Automated cell count . Manual ANC may differ if performed. Diff Type Auto 01/29/2025 8:14 PM EST [facility] Blood (Blood) Venipuncture / Unknown 01/29/2025 8:05 PM EST 01/29/2025 8:10 PM EST Montrell Munoz MD LAB BLOOD BKR ORDERABLES Fi nal Result Performing Organization Address City/[facility]/ZIP Co de Phone Number [address] [address] * (ABNORMAL) NT-proBNP (01/29/2025 8:05 PM EST) NT-ProBNP >35,000(H) 0 - 900 pg/mL 01/29/2025 8:47 PM EST [facility] Comment: Age <50 years: 0-450 pg/ml [...] body-mass index. Blood (Blood) Venipuncture / Unknown 01/29/2025 8:05 PM EST 01/29/2025 8:10 PM EST Montrell Munoz MD LAB BLOOD BKR ORDERABLES Fi nal Result [address] [address] * (ABNORMAL) Troponin (01/29/2025 8:05 PM EST) Troponin-T HS Gen5 53(H) 0 - 9 ng/L 01/29/2025 8:35 PM EST [facility] Blood (Blood) Venipuncture / Unknown 01/29/2025 8:05 PM EST 01/29/2025 8:10 PM EST us Montrell Munoz MD LAB BLOOD BKR ORDERABLES Fi nal Result Performing Organization Address City/[facility]/ZIP Co de Phone Number [address] [address] * (ABNORMAL) Basic Metabolic Panel (BMP) (01/29/2025 8:05 PM EST) Sodium 144 136 - 145 mmol/L 01/29/2025 8:37 PM [facility] Potassium 4.3 3.4 - 5.1 mmol/L 01/29/2025 8:37 PM [facility] Chloride 107 98 - 107 mmol/L 01/29/2025 8:37 PM [facility] CO2 19(L) 20 - 31 mmol/L 01/29/2025 8:37 PM [facility] BUN 56(H) 6 - 23 mg/dL 01/29/2025 8:37 PM [facility] Creatinine 3.50(H) 0.50 - 1.00 mg/dL 01/29/2025 8:37 PM [facility] Glucose 192(H) 70 - 99 mg/dL 01/29/2025 8:37 PM [facility] Calcium 9.4 8.5 - 10.5 mg/dL 01/29/2025 8:37 PM [facility] eGFR 13(L) >59 mL/min/1.7 3m2 01/29/2025 8:37 PM [facility] Comment:Estimated glomerular filtration rate calculated using the CKD-EPI refit equation. Anion Gap 18(H) 3 - 17 mmol/L 01/29/2025 8:37 PM [facility] Blood (Blood) Venipuncture / Unknown 01/29/2025 8:05 PM EST 01/29/2025 8:10 PM EST us Montrell Munoz MD LAB BLOOD BKR ORDERABLES Fi nal Result Performing Organization Address City/[facility]/ZIP Co de Phone Number [address] [address] * US BEDSIDE (01/29/2025 7:51 PM EST) Anatomical Region Laterality Modality Ultrasound Narrative 01/29/2025 7:51 PM EST Montrell Munoz MD 01/30/2025 1:02 AM Bedside Ultrasound Date/Time: 01/29/2025 7:51 PM Performed by: Montrell Munoz MD Authorized by: Montrell Munoz MD Exam Type: Thoracic Thoracic Exam Findings & Impression: Indications: patient with shortness of breath, hypoxia and tachycardia Right Lung B-Lines: the R chest was visualized and multiple B lines were seen Left Lung B-Lines: the L chest was visualized and multiple B lines were seen Overall Impression: positive Images: Images Saved: Yes Accession Number: [id number] Montrell Munoz MD IMG POINT OF CARE EXAMS Fin al Result documented in this encounter Visit Diagnoses Diagnosis Flash pulmonary edema- Primary Unspecified acute edema of lung Flash pulmonary edema Unspecified acute edema of lung Influenza A Influenza with other respiratory manifestations Acute on chronic congestive heart failure, unspecified heart failure type Mitral valve insufficiency, unspecified etiology Acute kidney injury superimposed on chronic kidney disease Acute respiratory failure with hypoxia and hypercapnia Influenza A Influenza with other respiratory manifestations History of pulmonary embolism Personal history of venous thrombosis and embolism Hypertensive emergency Mitral regurgitation Mitral valve disorders Acute on chronic congestive heart failure, unspecified heart failure type documented in this encounter Admitting Diagnoses Diagnosis Flash pulmonary edema Unspecified acute edema of lung documented in this encounter Administered Medications Inactive Administered Medications - up to 3 most recent administrations Medication Order MAR Action Action Date Dose Rate Site acetaminophen (TYLENOL) suppository 650 mg 650 mg, Rectal, Once, On Jackelyn 01/29/25 at 2044, For 1 dose Given 01/29/2025 8:33 PM EST 650 mg acetaminophen (TYLENOL) tablet 650 mg 650 mg, Oral, Every 6 hours PRN, mild pain or 1-3 (on a general 0-10 scale), fever, Starting on Sun01/30/25 at 0029 Given 02/02/2025 9:20 AM EST 650 mg Given 01/31/2025 8:27 AM EST 650 mg Given 01/30/2025 12:07 PM EST 650 mg amLODIPine (NORVASC) tablet 5 mg 5 mg, Oral, Daily, First dose on Sun02/03/25 at 1845, Hold Parameters: Systolic BP LESS than 100 mmHg Given 02/04/2025 8:30 AM EST 5 mg Given 02/03/2025 7:04 PM EST 5 mg apixaban (ELIQUIS) tablet 2.5 mg 2.5 mg, Oral, 2 times daily, First dose on Sun01/30/25 at 0015, Take with or without food, On hold since Sun02/02/2025 at 0855 until manually unheld Given 02/01/2025 8:25 PM EST 2.5 mg Given 02/01/2025 9:08 AM EST 2.5 mg Given 01/30/2025 8:40 PM EST 2.5 mg apixaban (ELIQUIS) tablet 2.5 mg 2.5 mg, Oral, 2 times daily, First dose (after last modification) on Sun02/03/25 at 2000, Take with or without food Given 02/04/2025 8:30 AM EST 2.5 mg benzocaine (HURRICAINE) 20 % spray Mouth/Throat, As needed, Starting on Sun02/03/25 at 1104, Intra-op/procedure Given 02/03/2025 11:04 AM EST 1 spra y chlorhexidine gluconate 2 % wipe 1 each 1 each (1 Application), Topical, Daily, First dose on Sun01/30/25 at 0015, Apply to body. Use each wipe only once. Do not use wipes on face or any mucous membranes. Cleanse tubes and lines, avoid dressings. For TOPICAL Use Only Given 02/04/2025 8:31 AM EST 1 each Given 02/03/2025 9:30 AM EST 1 each Given 02/02/2025 9:17 AM EST 1 each cloNIDine HCL (CATAPRES) tablet 0.1 mg 0.1 mg, Oral, Every 8 hours, First dose on Sun01/30/25 at 0015 Given 01/30/2025 8:10 AM EST 0.1 mg Given 01/29/2025 11:56 PM EST 0.1 mg cloNIDine HCL (CATAPRES) tablet 0.1 mg 0.1 mg, Oral, Every 8 hours, First dose (after last modification) on Sun02/04/25 at 0015 Given 02/04/2025 8:30 AM EST 0.1 mg Given 02/03/2025 11:46 PM EST 0.1 mg cloNIDine HCL (CATAPRES) tablet 0.2 mg 0.2 mg, Oral, Every 8 hours, First dose (after last modification) on Sun01/30/25 at 1615 Given 02/03/2025 4:10 PM EST 0.2 mg Given 02/03/2025 8:55 AM EST 0.2 mg Given 02/03/2025 12:19 AM EST 0.2 mg docusate (COLACE) 50 mg/5 mL liquid 100 mg 100 mg, Oral, 2 times daily, First dose on Sun02/03/25 at 2100, Mix with 6 to 8 oz of milk or fruit juice prior to administration. Given 02/04/2025 8:35 AM EST 100 mg Given 02/03/2025 9:55 PM EST 100 mg empagliflozin (JARDIANCE) tablet 10 mg 10 mg, Oral, Daily, First dose on 02/02/25 at 1000 Brunson Care wipe (SURESTEP POST INSERTION) towelette Topical, 2 times daily, First dose on 01/31/25 at 2145, Apply Brunson Care Wipe to perineal area twice a day until urinary catheter is removed. For TOPICAL Use Only Given 02/04/2025 8:35 AM EST 1 each Given 02/03/2025 8:04 PM EST 1 each Given 02/03/2025 8:55 AM EST 1 each furosemide (LASIX) infusion premix CMPD 5 mg/hr (2.5 mL/hr), Intravenous, Continuous, Starting on 01/31/25 at 1830, PROTECT FROM LIGHT, Is the RN allowed to titrate this medication with the following parameters listed below? No, For a non-titratable order, acknowledge you have entered a discrete dose in the dose field above: Acknowledge, On hold since 02/01/2025 at 1915 until manually unheld New Bag 02/01/2025 6:26 PM EST 5 mg/hr 2.5 mL/hr Rate/Dose Verify 02/01/2025 6:25 PM EST 5 mg/hr 2.5 mL/ hr Rate/Dose Verify 02/01/2025 6:00 PM EST 5 mg/hr 2.5 mL/ hr furosemide (LASIX) injection 40 mg 40 mg, Intravenous, Once, On 01/31/25 at 1645, For 1 dose Given 01/31/2025 4:21 PM EST 40 mg furosemide (LASIX) injection 80 mg 80 mg, Intravenous, Once, On Sun01/30/25 at 0530, For 1 dose Given 01/30/2025 4:53 AM EST 80 mg guaiFENesin (ROBITUSSIN) 100 mg/5 mL syrup 400 mg 400 mg, Oral, Every 6 hours PRN, congestion, Starting on Sun01/30/25 at 0351 Given 02/02/2025 4:31 PM EST 400 mg Given 02/01/2025 9:49 PM EST 400 mg Given 01/31/2025 11:26 PM EST 400 mg ipratropium-albuteroL (DUONEB) 0.5-3 mg (2.5 mg base)/3 mL nebulizer solution 3 mL 3 mL, Nebulization, 4 times daily, First dose on 01/31/25 at 1645 Given 01/31/2025 4:39 PM EST 3 mL ipratropium-albuteroL (DUONEB) 0.5-3 mg (2.5 mg base)/3 mL nebulizer solution 3 mL 3 mL, Nebulization, Every 6 hours PRN, wheezing, Starting on Sun01/31/25 at 1930 isosorbide dinitrate (ISORDIL) IMMEDIATE release tablet 30 mg 30 mg, Oral, 3 times daily, First dose on Sun01/30/25 at 0900 Given 01/31/2025 8:16 PM EST 30 mg Given 01/31/2025 2:01 PM EST 30 mg Given 01/31/2025 8:23 AM EST 30 mg isosorbide dinitrate (ISORDIL) IMMEDIATE release tablet 40 mg 40 mg, Oral, Every 8 hours, First dose (after last modification) on Sun02/01/25 at 0500 Given 02/04/2025 5:21 AM EST 4 0 mg Given 02/03/2025 8:05 PM EST 40 mg Given 02/03/2025 2:52 PM EST 40 mg lactated ringers IV Bolus 500 mL 500 mL, Intravenous, Administer over 1 Hours, Once, On 02/02/25 at 1200, For 1 dose New Bag 02/02/2025 11:07 AM EST 500 mL 5 00 mL/hr metOLazone (ZAROXOLYN) tablet 5 mg 5 mg, Oral, Once, On 01/31/25 at 1830, For 1 dose Given 01/31/2025 7:23 PM EST 5 mg metOLazone (ZAROXOLYN) tablet 5 mg 5 mg, Oral, Once, On 02/01/25 at 1045, For 1 dose Given 02/01/2025 10:30 AM EST 5 mg metoprolol tartrate (LOPRESSOR) IMMEDIATE release tablet 50 mg 50 mg, Oral, 2 times daily, First dose on Sun01/30/25 at 0900, Hold Parameters: Systolic BP LESS than 100 mmHg, Hold Parameters: Heart Rate LESS than 60 bpm Given 02/01/2025 8:25 PM EST 50 mg Given 01/31/2025 8:24 AM EST 50 mg Given 01/30/2025 8:40 PM EST 50 mg niCARdipine (CARDENE IV) infusion premix 0-15 mg/hr (0-75 mL/hr), Intravenous, Continuous, Starting on Sun01/30/25 at 1230, Administer by slow IV continuous infusion through a central line or large peripheral vein; avoid extravasation. Peripheral infusion sites should be changed every 12 hours to minimize venous irritation., Is the RN allowed to titrate this medication with the following parameters listed below? Yes, Titration parameter(s): SBP (mmHg), Titrate to this value based on the above chosen parameter(s) (Enter a number): 160 - 180, Start infusion at this rate: 5 mg/hr, May titrate dose at increments of ___ every 5-15 minutes to achieve defined parameter above: 2.5 mg/hr Rate/Dose Verify 01/30/2025 5:00 PM EST 5 mg/hr 25 mL/hr Rate/Dose Verify 01/30/2025 4:00 PM EST 5 mg/hr 25 mL/h r Rate/Dose Verify 01/30/2025 3:00 PM EST 5 mg/hr 25 mL/h r NIFEdipine (ADALAT CC) ER tablet 30 mg 30 mg, Oral, Daily, First dose on 02/01/25 at 1045, Avoid administration with grapefruit juice Do NOT crush or chew. Given 02/02/2025 9:21 AM EST 30 mg Given 02/01/2025 10:30 AM EST 30 mg nitroglycerin infusion premix 0-200 mcg/min (0-30 mL/hr), Intravenous, Continuous, Starting on Sun01/29/25 at 2000, Is the RN allowed to titrate this medication with the following parameters listed below? Yes, Titration parameter(s): SBP (mmHg), Titrate to this value based on the above chosen parameter(s) (Enter a number): 160, Start infusion at this rate: 20 mcg/min, May titrate dose at increments of ___ every 1 minute to achieve defined parameter above: 5-20 mcg/min Rate/Dose Verify 01/30/2025 12:00 PM EST 160 mcg/min 24 mL/hr New Bag 01/30/2025 9:25 AM EST 160 mcg/min 24 mL/hr Rate/Dose Verify 01/30/2025 9:00 AM EST 180 mcg/min 27 mL/ hr oseltamivir (TAMIFLU) capsule 30 mg 30 mg, Oral, Daily, First dose on Sun01/30/25 at 0900, For 5 doses, Capsules may be opened and mixed with sweetened liquid (eg, chocolate syrup)., Indication: Definitive (documented infection) Given 02/03/2025 8:55 AM EST 30 mg Given 02/02/2025 9:21 AM EST 30 mg Given 02/01/2025 9:08 AM EST 30 mg phenoL (CHLORASEPTIC) 1.4 % mouth spray 1 spray 1 spray, Mouth/Throat, Every 2 hour PRN, sore throat, may alternate with cepacol lozenges, Starting on Sun01/30/25 at 0352 Given 01/30/2025 4:03 AM EST 1 spray piperacillin-tazobactam (ZOSYN) 4.5 g in sodium chloride 0.9% 100 mL IVPB-MBP 4.5 g, Intravenous, Administer over 30 Minutes, at 200 mL/hr, Once, On Sun01/29/25 at 2030, For 1 dose, MINIBAG PLUS PREPARATION Use Piperacillin-Tazobactam 4.5 g vial for MBP reconstitution (equivalent to 4,000 mg piperacillin), Indication: Infection WITH SEPSIS, Infection Source: Bloodstream Infection New Bag 01/29/2025 8:50 PM EST 4.5 g 200 mL/hr polyethylene glycol packet 17 g, Oral, Daily as needed, mild constipation, Starting on Jackelyn 01/29/25 at 2322, Dissolve and stir one packet of powder (17 g) in 4-8 oz of water or juice. Given 02/03/2025 4:27 PM EST 17 g polyethylene glycol packet 17 g, Oral, Daily, First dose on Sun02/04/25 at 0900, Dissolve and stir one packet of powder (17 g) in 4-8 oz of water or juice. potassium chloride (KLOR-CON) packet 40 mEq 40 mEq, Oral, 2 times daily, First dose on 02/01/25 at 1045, For 2 doses, Dissolve each 20 mEq in at least 4 ounces of cold water or other beverage. Given 02/01/2025 10:30 AM EST 40 mEq potassium chloride (MICRO-K) ER capsule 40 mEq 40 mEq, Oral, Once, On Sun02/01/25 at 0645, For 1 dose, Swallow tablets whole, do not crush or chew. Capsules may be opened and contents sprinkled on a spoonful of applesauce or pudding and should be swallowed immediately without chewing. Microencapsulated tablets may be dissolved in 6 ounces of water, stir and administer immediately. Given 02/01/2025 6:35 AM EST 40 mEq predniSONE (DELTASONE) tablet 5 mg 5 mg, Oral, Daily, First dose on Sun01/30/25 at 0900, Administer with food to decrease GI effects. Given 02/04/2025 8:30 AM EST 5 mg Given 02/03/2025 8:55 AM EST 5 mg Given 02/02/2025 9:21 AM EST 5 mg simethicone (MYLICON) 40 mg/0.6 mL oral solution 40 mg 40 mg, Oral, Every 6 hours PRN, gas, Starting on Tu02/03/25 at 1855 Given 02/03/2025 8:04 PM EST 40 mg sodium chloride (NS) 0.9 % syringe flush 3 mL 3 mL, Intravenous, As needed, line care, Starting on 02/02/25 at 0854, Per Institutional IV Line Care Policy. sodium chloride (OCEAN) 0.65 % nasal spray 1 spray 1 spray, Each Nare, As needed, irritation, Starting on 02/01/25 at 0523 Given 02/01/2025 5:32 AM EST 1 spray sodium chloride 0.9% infusion 150 mL/hr, Intravenous, Continuous, Starting on Sun02/03/25 at 1500, For 2 hours, Recovery & Post-op New Bag 02/03/2025 3:36 PM EST 150 mL/hr 150 mL/hr sore throat (CEPACOL) lozenge 1 lozenge 1 lozenge, Mouth/Throat, 3 times daily PRN, other (free text field), cough/sore throat may alternate with phenol spray for sore throat, Starting on Sun01/30/25 at 0351 Given 02/02/2025 9:18 AM EST 1 lozenge Given 02/01/2025 9:56 PM EST 1 lozenge Given 01/30/2025 8:46 PM EST 1 lozenge torsemide (DEMADEX) tablet 60 mg 60 mg, Oral, 2 times daily, First dose on Sun02/02/25 at 1145 Given 02/04/2025 8:31 AM EST 60 mg Given 02/03/2025 4:09 PM EST 60 mg Given 02/03/2025 8:55 AM EST 60 mg documented in this encounter Active and Recently Administered Medications Times are shown in EST. Scheduled Medication Order 02/02/2025 02/03/2025 02/04/2025 amLODIPine (NORVASC) tablet 5 mg 5 mg, Oral, Daily, First dose on Sun02/03/25 at 1845, Hold Parameters: Systolic BP LESS than 100 mmHg 1904 (Given - Provider: Carol Ann Yates RN) 0830 (Given - Provider: Chioma Hanson RN) apixaban (ELIQUIS) tablet 2.5 mg 2.5 mg, Oral, 2 times daily, First dose (after last modification) on Sun02/03/25 at 2000, Take with or without food 0855 (Held by provider - Provider: Yomi Dawn MD) 2000 (Automatically Held) 0105 (Unheld by provider - Provider: Fan Cameron NP)0830 (Given - Provider: Chioma Hanson RN) chlorhexidine gluconate 2 % wipe 1 each 1 each (1 Application), Topical, Daily, First dose on Sun01/30/25 at 0015, Apply to body. Use each wipe only once. Do not use wipes on face or any mucous membranes. Cleanse tubes and lines, avoid dressings. For TOPICAL Use Only 0917 (Given - Provider: Kanika Hernandez RN) 0930 (Given - Provider: Carol Ann Yates RN)1040 ([facility] Hold - Provider: Automatic Transfer Provider - Reason: Unreviewed Transfer Orders)1200 ([facility] Unhold - Provider: Automatic Transfer Provider)1200 ([facility] Hold - Provider: User Epic - Reason: Unreviewed Transfer Orders)1434 ([facility] Unhold - Provider: User Epic) 0831 (Given - Provider: Chioma Hanson, GALDINO) cloNIDine HCL (CATAPRES) tablet 0.1 mg 0.1 mg, Oral, Every 8 hours, First dose (after last modification) on Sun02/04/25 at 0015 2346 (Given - Provider: Cathie He RN) 0830 (Given - Provider: Chioma Hanson RN) cloNIDine HCL (CATAPRES) tablet 0.2 mg (CANCELED) 0.2 mg, Oral, Every 8 hours, First dose (after last modification) on Sun01/30/25 at 1615 0920 (Given - Provider: Kanika Hernandez RN)1838 (Given - Provider: Kanika Hernandez RN) 0019 (Given - Provider: Osmar Wayne RN)0855 (Given - Provider: Carol Ann Yates, GALDINO)1040 ([facility] Hold - Provider: Automatic Transfer Provider - Reason: Unreviewed Transfer Orders)1200 ([facility] Unhold - Provider: Automatic Transfer Provider)1200 ([facility] Hold - Provider: User Epic - Reason: Unreviewed Transfer Orders)1434 ([facility] Unhold - Provider: User Epic)1610 (Given - Provider: Carol Ann Yates, GALDINO) docusate (COLACE) 50 mg/5 mL liquid 100 mg 100 mg, Oral, 2 times daily, First dose on Sun02/03/25 at 2100, Mix with 6 to 8 oz of milk or fruit juice prior to administration. 2155 (Given - Provider: Cathie He RN) 0835 (Given - Provider: Chioma Hanson RN) empagliflozin (JARDIANCE) tablet 10 mg 10 mg, Oral, Daily, First dose on 02/02/25 at 1000 1215 (Not Given - Provider: Kanika Hernandez RN - Reason: Patient/family refused - Comment: informational handout provided to pt- she said she is not willing to try this new med until speaking with a doctor about it.) 0859 (Not Given - Provider: Carol Ann Yates RN - Reason: Patient/family refused)1040 ([facility] Hold - Provider: Automatic Transfer Provider - Reason: Unreviewed Transfer Orders)1200 ([facility] Unhold - Provider: Automatic Transfer Provider)1200 ([facility] Hold - Provider: User Epic - Reason: Unreviewed Transfer Orders)1434 ([facility] Unhold - Provider: User Epic) 0833 (Not Given - Provider: Chioma Hanson, GALDINO - Reason: Patient/family refused) Brunson Care wipe (SURESTEP POST INSERTION) towelette (CANCELED) Topical, 2 times daily, First dose on Sun01/31/25 at 2145, Apply Brunson Care Wipe to perineal area twice a day until urinary catheter is removed. For TOPICAL Use Only 0917 (Given - Provider: Kanika Hernandez RN)2129 (Given - Provider: Osmar Wayne, GALDINO) 0855 (Given - Provider: Carol Ann Yates RN)1040 ([facility] Hold - Provider: Automatic Transfer Provider - Reason: Unreviewed Transfer Orders)1200 ([facility] Unhold - Provider: Automatic Transfer Provider)1200 ([facility] Hold - Provider: User Epic - Reason: Unreviewed Transfer Orders)1434 ([facility] Unhold - Provider: User Epic)2004 (Given - Provider: Cathie He RN) 0835 (Given - Provider: Chioma Hanson, GALDINO) isosorbide dinitrate (ISORDIL) IMMEDIATE release tablet 40 mg 40 mg, Oral, Every 8 hours, First dose (after last modification) on Sun02/01/25 at 0500 0454 (Given - Provider: Polly Ryder)1414 (Not Given - Provider: Kanika Hernandez RN - Reason: Patient/family refused - Comment: concerned she will get dizzy again)2142 (Given - Provider: Osmar Wayne, GALDINO) 0549 (Given - Provider: Osmar Wayne RN)1040 ([facility] Hold - Provider: Automatic Transfer Provider - Reason: Unreviewed Transfer Orders)1200 ([facility] Unhold - Provider: Automatic Transfer Provider)1200 ([facility] Hold - Provider: User Epic - Reason: Unreviewed Transfer Orders)1434 ([facility] Unhold - Provider: User Epic)1452 (Given - Provider: Carol Ann Yates, GALDINO - Comment: Chucky Meza)2004 (Given - Provider: Cathie He RN) 0521 (Given - Provider: Cathie He RN) lactated ringers IV Bolus 500 mL (COMPLETED) 500 mL, Intravenous, Administer over 1 Hours, Once, On Sun02/02/25 at 1200, For 1 dose 1107 (New Bag - Provider: Kasandra Sandoval RN) metoprolol tartrate (LOPRESSOR) IMMEDIATE release tablet 50 mg 50 mg, Oral, 2 times daily, First dose on Sun01/30/25 at 0900, Hold Parameters: Systolic BP LESS than 100 mmHg, Hold Parameters: Heart Rate LESS than 60 bpm 0901 (Not Given - Provider: Kanika Hernandez RN - Reason: Order parameters not met)2139 (Not Given - Provider: Osmar Wayne RN - Reason: Order parameters not met - Comment: HR 51-57) 0859 (Not Given - Provider: Carol Ann Yates RN - Reason: Contraindicated)104 0 ([facility] Hold - Provider: Automatic Transfer Provider - Reason: Unreviewed Transfer Orders)1200 ([facility] Unhold - Provider: Automatic Transfer Provider)1200 ([facility] Hold - Provider: User Epic - Reason: Unreviewed Transfer Orders)1434 ([facility] Unhold - Provider: User Epic)2003 (Not Given - Provider: Cathie He RN - Reason: Order parameters not met) 0828 (Not Given - Provider: Chioma Hanson RN - Reason: Order parameters not met) NIFEdipine (ADALAT CC) ER tablet 30 mg (CANCELED) 30 mg, Oral, Daily, First dose on Sun02/01/25 at 1045, Avoid administration with grapefruit juice Do NOT crush or chew. 0921 (Given - Provider: Kanika Hernandez RN) 0855 (Not Given - Provider: Carol Ann Yates RN - Reason: Patient/family refused)1040 ([facility] Hold - Provider: Automatic Transfer Provider - Reason: Unreviewed Transfer Orders)1200 ([facility] Unhold - Provider: Automatic Transfer Provider)1200 ([facility] Hold - Provider: User Epic - Reason: Unreviewed Transfer Orders)1434 ([facility] Unhold - Provider: User Epic) oseltamivir (TAMIFLU) capsule 30 mg (COMPLETED) 30 mg, Oral, Daily, First dose on Sun01/30/25 at 0900, For 5 doses, Capsules may be opened and mixed with sweetened liquid (eg, chocolate syrup)., Indication: Definitive (documented infection) 0921 (Given - Provider: Kanika Hernandez RN) 0855 (Given - Provider: Carol Ann Yates RN) polyethylene glycol packet 17 g, Oral, Daily, First dose on Sun02/04/25 at 0900, Dissolve and stir one packet of powder (17 g) in 4-8 oz of water or juice. 0832 (Not Given - Provider: Chioma Hanson RN - Reason: Patient/family refused) predniSONE (DELTASONE) tablet 5 mg 5 mg, Oral, Daily, First dose on Sun01/30/25 at 0900, Administer with food to decrease GI effects. 0921 (Given - Provider: Kanika Hernandez RN) 0855 (Given - Provider: Carol Ann Yates RN)1040 ([facility] Hold - Provider: Automatic Transfer Provider - Reason: Unreviewed Transfer Orders)1200 ([facility] Unhold - Provider: Automatic Transfer Provider)1200 ([facility] Hold - Provider: User Epic - Reason: Unreviewed Transfer Orders)1434 ([facility] Unhold - Provider: User Epic) 0830 (Given - Provider: Chioma Hanson, GALDINO) senna (SENOKOT) tablet 2 tablet 2 tablet, Oral, Nightly, First dose on Sun01/30/25 at 0015 2143 (Not Given - Provider: Osmar Wayne RN - Reason: Patient/family refused) 1040 ([facility] Hold - Provider: Automatic Transfer Provider - Reason: Unreviewed Transfer Orders)1200 ([facility] Unhold - Provider: Automatic Transfer Provider)1200 ([facility] Hold - Provider: User Epic - Reason: Unreviewed Transfer Orders)1434 ([facility] Unhold - Provider: User Epic)2002 (Not Given - Provider: Cathie He RN - Reason: Patient/family refused) torsemide (DEMADEX) tablet 60 mg 60 mg, Oral, 2 times daily, First dose on Sun02/02/25 at 1145 1103 (Held by provider - Provider: Ruddy Umaña CNP)1145 (Automatically Held - Provider: Ruddy Umaña CNP)1600 (Automatically Held - Provider: Ruddy Umaña CNP)1833 (Unheld by provider - Provider: Ruddy Umaña CNP)1838 (Given - Provider: Kanika Hernandez RN - Comment: discussed verbally with provider give dose that was previously held) 0855 (Given - Provider: Carol Ann Yates RN)1040 ([facility] Hold - Provider: Automatic Transfer Provider - Reason: Unreviewed Transfer Orders)1200 ([facility] Unhold - Provider: Automatic Transfer Provider)1200 ([facility] Hold - Provider: User Epic - Reason: Unreviewed Transfer Orders)1434 ([facility] Unhold - Provider: User Epic)1609 (Given - Provider: Carol Ann Yates RN) 0831 (Given - Provider: Chioma Hanson RN) Continuous Medication Order 02/02/2025 02/03/2025 02/04/2025 sodium chloride 0.9% infusion () 150 mL/hr, Intravenous, Continuous, Starting on Sun02/03/25 at 1500, For 2 hours, Recovery & Post-op 1536 (New Bag - Provider: Carol Ann Yates RN) PRN Medication Order 02/02/2025 02/03/2025 02/04/2025 acetaminophen (TYLENOL) tablet 650 mg 650 mg, Oral, Every 6 hours PRN, mild pain or 1-3 (on a general 0-10 scale), fever, Starting on Sun01/30/25 at 0029 0920 (Given - Provider: Kanika Hernandez, GALDINO) 1040 ([facility] Hold - Provider: Automatic Transfer Provider - Reason: Unreviewed Transfer Orders)1200 ([facility] Unhold - Provider: Automatic Transfer Provider)1200 ([facility] Hold - Provider: User Epic - Reason: Unreviewed Transfer Orders)1434 ([facility] Unhold - Provider: User Epic) atropine injection syringe 1 mg 1 mg, Intravenous, Once as needed, other (free text field), vagal reaction, HR less 40, Starting on Sun02/03/25 at 1407, For 1 dose, Recovery & Post-op benzocaine (HURRICAINE) 20 % spray (CANCELED) Mouth/Throat, As needed, Starting on Sun02/03/25 at 1104, Intra-op/procedure 1104 (Given - Provider: Yomi Dawn MD) fentaNYL (PF) (SUBLIMAZE) injection (CANCELED) As needed, Starting on Sun02/03/25 at 1314, Intra-op/procedure 1314 (Given - Provider: Merlin Lazcano, GALDINO)1328 (Given - Provider: Merlin Lazcano, GALDINO) guaiFENesin (ROBITUSSIN) 100 mg/5 mL syrup 400 mg 400 mg, Oral, Every 6 hours PRN, congestion, Starting on Sun01/30/25 at 0351 0922 (Not Given - Provider: Kanika Hernandez RN - Reason: Patient/family refused)1631 (Given - Provider: Kanika Hernandez RN) 1040 ([facility] Hold - Provider: Automatic Transfer Provider - Reason: Unreviewed Transfer Orders)1200 ([facility] Unhold - Provider: Automatic Transfer Provider)1200 ([facility] Hold - Provider: User Epic - Reason: Unreviewed Transfer Orders)1434 ([facility] Unhold - Provider: User Epic) heparin 1,000 unit/mL injection (CANCELED) As needed, Starting on Sun02/03/25 at 1335, Intra-op/procedure 1335 (Given - Provider: Merlin Lazcano RN)1340 (Given - Provider: Merlin Lazcano, GALDINO) ipratropium-albuteroL (DUONEB) 0.5-3 mg (2.5 mg base)/3 mL nebulizer solution 3 mL 3 mL, Nebulization, Every 6 hours PRN, wheezing, Starting on Sun01/31/25 at 1930 1040 ([facility] Hold - Provider: Automatic Transfer Provider - Reason: Unreviewed Transfer Orders)1200 ([facility] Unhold - Provider: Automatic Transfer Provider)1200 ([facility] Hold - Provider: User Epic - Reason: Unreviewed Transfer Orders)1434 ([facility] Unhold - Provider: User Epic) lidocaine (XYLOCAINE) 2% injection (CANCELED) As needed, Starting on Sun02/03/25 at 1326, Intra-op/procedure 1326 (Given - Provider: Yomi Dawn MD)1330 (Given - Provider: Yomi Dawn MD) nitroglycerin infusion premix (COMPLETED) Intra-op continuous PRN, Starting on Sun02/03/25 at 1332, Intra-op/procedure 1332 (New Bag - Provider: Yomi Dawn MD)1345 (New Bag - Provider: Yomi Dawn MD) phenoL (CHLORASEPTIC) 1.4 % mouth spray 1 spray 1 spray, Mouth/Throat, Every 2 hour PRN, sore throat, may alternate with cepacol lozenges, Starting on Sun01/30/25 at 0352 1040 ([facility] Hold - Provider: Automatic Transfer Provider - Reason: Unreviewed Transfer Orders)1200 ([facility] Unhold - Provider: Automatic Transfer Provider)1200 ([facility] Hold - Provider: User Epic - Reason: Unreviewed Transfer Orders)1434 ([facility] Unhold - Provider: User Epic) polyethylene glycol packet (CANCELED) 17 g, Oral, Daily as needed, mild constipation, Starting on Sun01/29/25 at 2322, Dissolve and stir one packet of powder (17 g) in 4-8 oz of water or juice. 1040 ([facility] Hold - Provider: Automatic Transfer Provider - Reason: Unreviewed Transfer Orders)1200 ([facility] Unhold - Provider: Automatic Transfer Provider)1200 ([facility] Hold - Provider: User Epic - Reason: Unreviewed Transfer Orders)1434 ([facility] Unhold - Provider: User Epic)1627 (Given - Provider: Carol Ann Yates RN) simethicone (MYLICON) 40 mg/0.6 mL oral solution 40 mg 40 mg, Oral, Every 6 hours PRN, gas, Starting on Sun02/03/25 at 1855 2003 (Given - Provider: Cathie He, GALDINO) sodium chloride (NS) 0.9 % syringe flush 3 mL 3 mL, Intravenous, As needed, line care, Starting on Sun02/02/25 at 0854, Per Institutional IV Line Care Policy. 1040 ([facility] Hold - Provider: Automatic Transfer Provider - Reason: Unreviewed Transfer Orders)1200 ([facility] Unhold - Provider: Automatic Transfer Provider)1200 ([facility] Hold - Provider: User Epic - Reason: Unreviewed Transfer Orders)1434 ([facility] Unhold - Provider: User Epic) sodium chloride (OCEAN) 0.65 % nasal spray 1 spray 1 spray, Each Nare, As needed, irritation, Starting on 02/01/25 at 0523 1040 ([facility] Hold - Provider: Automatic Transfer Provider - Reason: Unreviewed Transfer Orders)1200 ([facility] Unhold - Provider: Automatic Transfer Provider)1200 ([facility] Hold - Provider: User Epic - Reason: Unreviewed Transfer Orders)1434 ([facility] Unhold - Provider: User Epic) sore throat (CEPACOL) lozenge 1 lozenge 1 lozenge, Mouth/Throat, 3 times daily PRN, other (free text field), cough/sore throat may alternate with phenol spray for sore throat, Starting on Sun01/30/25 at 0351 0918 (Given - Provider: Kanika Hernandez RN) 1040 ([facility] Hold - Provider: Automatic Transfer Provider - Reason: Unreviewed Transfer Orders)1200 ([facility] Unhold - Provider: Automatic Transfer Provider)1200 ([facility] Hold - Provider: User Epic - Reason: Unreviewed Transfer Orders)1434 ([facility] Unhold - Provider: User Epic) documented in this encounter Additional Health Concerns Infection Onset Date Last Indicated Resolved Time Resp-Risk 01/29/2025 01/29/2025 01/29/2025 9:20 PM EST Influenza A 01/29/2025 01/29/2025 02/05/2025 7:06 PM EST documented as of this encounter Care Teams Medical Collections Representative Relationship Specialty Start Date End Date Baldomero Roy PA [address] [place] [id number] PCP - General Physician Metal Reclamation Kettle Tender 06/07/24 02/03/25 London Boyer MD [address] [place] [id number] PCP - General Nephrology 02/04/25 documented as of this encounter Additional Source Comments The information contained in this document represents components of the legal health record. It is not the complete legal health record.[facility]
--- OUTSIDE RECORDS SUMMARY | 2025-02-03 10:55 | XMS_ITS | Encounter Summary ---
Author Organization [facility] Address [address] [place] [id number] Phone Care Team Providers Care Rad Technologist Name Role Phone Baldomero Roy Primary Care Provider + Reason for Visit * Auth/Cert (Routine) Specialty Diagnoses / Procedures Referred By Tyree t Referred To Contact Diagnoses Influenza A Flash pulmonary edema Referral ID Status Reason Start Date Expiration Date Visits Re quested Visits Authorized [id number] 1 1 Encounter Details Date Type Department Care Team (Late st Contact Info) Description 02/03/2025 10:55 AM EST Anesthesia Event [facility] [address] [place] [address] Tiffanie Cao MD [address] [place] [address] [email or web address] Anesthesia Record Procedure Summary Procedure Name Responsible Anesthesiologist Anesthesia Start Time Anesthesia Stop Time ECHO TRANSESOPHAGEAL COMPLETE Tiffanie Cao MD 02/03/25 1055 02/03/25 1122 Events Date Time Event Comment 02/03/2025 1055 An Start 1055 Start Out of OR Vitals 1056 In Room 1103 1118 Stop Out of OR Vitals 1122 An Stop 1122 Post Op Handoff 1124 Out of Room Meds Name Total propofol 10 mg/mL 151.84 mg glycopyrrolate 0.2 mg/ml 0.1 mg lidocaine 2% 60 mg * Agents Name CO2 insp O2 exp * Blood No blood administrations on file. Lines, Drains, and Airways Type Details Placement Removal Urinary Catheter 01/31/25; 1800; 16 F r.; Not present on admission 01/31/25 1800 by Porter Pacheco RN 02/04/25 1031 by Chioma Hanson RN Peripheral IV Placement Date: 02/01/25; Placement Time: 2025; Size: 20 G; Orientation: Anterior, Right; Location: Forearm; Site Prep: Chlorhexidine-alcohol (CHG-IPA); Attempts: 1; Patient Tolerance: Tolerated well; Removal Date: 02/04/25; Removal Time: 1030; Removal Reason: Not present on admission 02/01/25 0001 by Porter Pacheco RN 02/04/25 1031 by Chioma Hanson RN documented in this encounter Social History Tobacco Use Types Packs/Day Years [...] housing situation today? I have finesse sing 02/02/2025 How many times have you move [...] PM EST documented as of this encounter OR Notes * Anesthesia Postprocedure Evaluation - Tiffanie Cao MD - 02/03/2025 12:55 PM EST Anesthesia Post Operative Note Anesthesia Type: general Patient evaluated in: PACU Consciousness: awake Airway/ Respiratory Status: Airway adjuncts: no airway adjuncts. Supplemental O2: room air Nausea/ Vomiting: nausea and vomiting control satisfactory Hydration status: adequate Analgesia/ Pain: Pain control is: adequate Vital Signs: Post-procedure vital signs reviewed Other: Patient experienced no anesthesia complications. Entered by: Tiffanie Cao MD No notable events documented. Vital Signs: Vitals Value Taken Time Pulse 57 02/03/25 12:05 BP 145/64 02/03/25 12:22 SpO2 96 % 02/03/25 12:22 Resp 20 02/03/25 12:05 Temp 02/03/25 12:55 Vitals shown include unfiled device data. No vitals data found for the desired time range. * Anesthesia Preprocedure Evaluation - Tiffanie Cao MD - 02/03/2025 10:48 AM EST Patient: Yecenia Gaines Date of Surgery: 02/03/2025 Procedure: ECHO TRANSESOPHAGEAL COMPLETE * No surgeons found in log * Patient Active Problem List Diagnosis Date Noted Influenza A 01/29/2025 Hypertensive urgency 12/31/2024 Respiratory distress 12/30/2024 Pulmonary edema 12/29/2024 CHF exacerbation 06/07/2024 Symptomatic anemia 06/07/2024 Acute kidney injury superimposed on chronic kidney disease 06/07/2024 Hypertensive emergency 06/07/2024 Flash pulmonary edema 06/07/2024 Osteoarthritis of right knee 06/07/2024 Acute respiratory failure with hypoxia and hypercapnia 06/07/2024 History of pulmonary embolism 10/19/2016 Past Medical History: Diagnosis Date Anemia Congestive heart failure Hypertensive disorder Osteoarthritis Bilateral knees right greater than left, and ankles and wrists uri ST elevation (STEMI) myocardial infarction 2018 Past Surgical History: Procedure Laterality Date COLONOSCOPY N/A 06/12/2024 Performed by Cristian Maynard MD at [facility] ENDOSCOPY CORONARY ANGIOPLASTY WITH STENT PLACEMENT 10/2018 Current Outpatient Medications Medication Instructions apixaban (ELIQUIS) 2.5 mg, 2 times daily ascorbic lqss-jllgphyp-scb (VITAMIN C ENERGY BOOSTER) 1,000 mg PwEP No dose, route, or frequency recorded. cloNIDine HCL (CATAPRES) 0.1 mg, Every 8 hours furosemide (LASIX) 40 mg, Daily hydrALAZINE (APRESOLINE) 10 mg, 3 times daily isosorbide dinitrate (ISORDIL) 30 mg, Oral, 3 times daily magnesium oxide 200 mg magnesium Chew No dose, route, or frequency recorded. metoprolol tartrate (LOPRESSOR) 50 mg, 2 times daily oxyCODONE 5 mg, Every 8 hours PRN predniSONE (DELTASONE) 5 mg, Oral, Daily vitamin B complex-folic acid (B COMPLEX 1, WITH FOLIC ACID,) 0.4 mg Tab 1 tablet Allergies Allergen Reactions Allerg Xt,D.Farinae-D.Pteronys Codeine Unknown Nsaids (Non-Steroidal Anti-Inflammatory Drug) Unknown and Other (See Comments) Hydralazine Erythema Drug induced lupus Previous Anesthesia Records Displaying the 20 most recent records Date Procedure Department Nutrition Partner Notable Events Planned Anesthesia Type 06/12/24 COLONOSCOPY [facility] Endoscopy Admitting Dept Virtual Department Apolinar Mcdaniel MD [facility] Social History Socioeconomic History Marital status: Single Spouse name: Not on file Number of children: Not on file Years of education: Not on file Highest education level: Not on file Occupational History Not on file Tobacco Use Smoking status: Never Smokeless tobacco: Never Substance and Sexual Activity Alcohol use: Never Drug use: Never Sexual activity: Never Other Topics Concern Not on file Social History Narrative Not on file Social Drivers of Health Residential Stability: Low Risk (02/02/2025) Residential Stability Family situation today data: I have housing Number of times moved in last year: Zero (I did not move) Wt Readings from Last 1 Encounters: 02/02/25 69.9 kg (154 lb 1.6 oz) Temp Readings from Last 1 Encounters: 02/03/25 36.1 ??C (97 ??F) (Tympanic) BP Readings from Last 1 Encounters: 02/03/25 (!) 153/73 Pulse Readings from Last 1 Encounters: 02/03/25 (!) 54 General: Patient snapshot reviewed. Physical Exam Airway: The airway exam is normal. Mallampati score: IV. Neck ROM is full. Mouth opening: normal. TM distance: normal. Cardiovascular: Heart rhythm: regular (+) murmur Pulmonary: Comment: Mild rhonchi bilaterally Neurological: (+) alert and oriented to self Vital Signs (imported from record): BP (!) 153/73 Pulse (!) 54 Temp 36.1 ??C (97 ??F) (Tympanic) Resp 16 Ht 172.7 cm (5' 7.99 ) Wt 69.9 kg (154 lb 1.6 oz) SpO2 96% BMI 23.44 kg/m?? - Lab Results (imported from record): CBC: Lab Results Component Value Date WBC 3.75 (L) 02/03/2025 RBC 3.04 (L) 02/03/2025 HGB 8.3 (L) 02/03/2025 HCT 28.9 (L) 02/03/2025 PLT 261 02/03/2025 MCV 95.1 02/03/2025 MCH 27.3 02/03/2025 MCHC 28.7 (L) 02/03/2025 RDW 15.3 (H) 02/03/2025 MVP 10.6 02/03/2025 NRBCA 0.00 02/03/2025 - BMP: Lab Results Component Value Date NA 136 02/03/2025 K 4.2 02/03/2025 CL 97 (L) 02/03/2025 CO2 26 02/03/2025 BUN 69 (H) 02/03/2025 CRE 3.30 (H) 02/03/2025 GLU 135 (H) 02/03/2025 CA 9.3 02/03/2025 GFR 14 (L) 02/03/2025 ANION 13 02/03/2025 - COAGS: Lab Results Component Value Date PT 13.0 01/29/2025 - Imaging and Additional Testing (imported from record): The following test(s) were reviewed: EKG and echocardiogram. Imaging and testing comments: Mild LV dilation with mild global LV dysfunction EF 45 to 50%. Moderate to severe mitral regurgitation very eccentric hugging the posterior lateral wall. Not surewhat there is much regurgitation the valve is thickened but it does not appear to prolapse. Aortic valve is thickened but normal in function. Normal RV size and function. Moderate to severe left atrial enlargement. Mild pulm hypertension estimated 41 mmHg. Compared to prior study from May 2024, LV size is the same. The mitral regurgitation may be more severe. LV function this similar. Anesthesia Assessment and Plan ASA physical status: 4E Primary anesthetic: general Induction type: intravenous Airway: The plan for the airway is: natural. Monitoring/Lines: The plan for monitoring and lines is: standard monitor. Notes: Anesthesia day of surgery notes: Patient currently flu pos, discussion with cardiology about urgency to proceed with procedure and he feels the patient does need to get the procedure currently due to worsening of her cardiac symptoms. Risk/Beneftis explained to the patient w/ increased risks associated with being flu positive. She feels she is doing much better than she initially was with her breathing almost back to baseline. Shebelieves she would benefit from getting the procedure done at this time. Informed Consent: Anesthetic plan and risks discussed with: patient. documented in this encounter Plan of Treatment Upcoming Encounters Date Type Department Care Team (Late st Contact Info) Description 04/07/2025 12:00 PM EST Office Visit [facility] [address] [place] [address] Naun Duran DO [address] [place] [address] [email or web address] documented as of this encounter Visit Diagnoses Not on filedocumented in this encounter Administered Medications Inactive Administered Medications - up to 3 most recent administrations Medication Order MAR Action Action Date Dose Rate Site glycopyrrolate (ROBINUL) injection Intravenous, As needed, Starting on Sun02/03/25 at 1100, Anesthesia Intra-op Given 02/03/2025 11:00 AM EST 0.1 mg lidocaine (XYLOCAINE) 2% injection Intravenous, As needed, Starting on Sun02/03/25 at 1100, Anesthesia Intra-op Given 02/03/2025 11:00 AM EST 60 mg propofol (DIPRIVAN) infusion Intravenous, As needed, Starting on Sun02/03/25 at 1101, Anesthesia Intra-op Rate/Dose Change 02/03/2025 11:07 AM EST 100 mcg/kg/min 41.94 mL/hr New Bag 02/03/2025 11:02 AM EST 140 mcg/kg/min 58.716 m L/hr Given 02/03/2025 11:01 AM EST 40 mg documented in this encounter Additional Health Concerns Infection Onset Date Last Indicated Resolved Time Influenza A 01/29/2025 01/29/2025 02/05/2025 7:06 PM EST documented as of this encounter Care Teams Rad Technologist Relationship Specialty Start Date End Date Baldomero Roy PA [address] [place] [address] PCP - General Physician Pmo Project Manager 06/07/24 02/03/25 documented as of this encounter Additional Source Comments The information contained in this document represents components of the legal health record. It is not the complete legal health record.[facility]
--- OUTSIDE RECORDS SUMMARY | 2025-02-03 11:00 | XMS_ITS | Encounter Summary ---
Author Organization [facility] Address [address] [place] [address] Phone Care Team Providers Care Corporate Communications Specialist Name Role Phone Baldomero Roy Primary Care Provider + Reason for Visit * Reason Comments Hypertension Respiratory Distress * Auth/Cert (Routine) Specialty Diagnoses / Procedures Referred By Contac t Referred To Contact Diagnoses Influenza A Flash pulmonary edema Referral ID Status Reason Start Date Expiration Date Visits Re quested Visits Authorized [id number] 1 1 Encounter Details Date Type Department Care Team (Latest Contact Info) Description 02/03/2025 11:00 AM EST - 02/03/2025 12:20 PM EST Surgery [facility] Cardiovascular And Interventional Radiology [address] [place] [address] Carlo Dawn MD [address], [address] [place] [address] [email or web address] Right and Left Heart Catheterization with possible LVGRAM Surgery Details Date/Time Status Location OR Service Patient Class Case Class Case Type Trauma Case? 02/03/2025 11:00 AM Posted [facility] Procedure Room Cardiovascular Inpatient Panel 1 Procedure LRB Anes Op Region Wound Class Comments Right and Left Heart Cathete rization with possible LVGRAM N/A Surgeon Surgeon Role Service Panel Carlo Dawn MD Primary Cardiovascular 1 documented in this encounter Social History Tobacco [...] Sign Reading Time Taken Comments Blood Pressure 136/55 02/03/2025 11:46 AM EST Pulse 55 02/03/2025 12:00 PM EST Temperature 36.1 C (97 F) 02/03/2025 7:53 AM EST Respiratory Rate 19 02/03/2025 12:00 PM EST Oxygen Saturation 97% 02/03/2025 12:00 PM EST Inhaled Oxygen Concentration 30% 01/30/2025 7 :30 AM EST Weight 69.9 kg (154 lb 1.6 oz) 02/02/2025 6:00 A M EST Height 172.7 cm (5' 7.99 ) 01/29/2025 11:[address] Body Mass Index 23.87 01/29/2025 11:30 PM EST documented in this encounter Functional Status * Calculated C-SSRS Risk Score (Lifetime/Recent) Answer Date of Assessment Author No Risk Indicated 01/29/2025 9:13 PM EST Kike Pagan RN * [place] Suicide Severity Rating Scale (Screener/Recent Self-Report) Question Answer Date of Assessment Author 1. Wish to be (Past 1 Month) No 01/29/2025 9:13 PM EST Kike Pagan RN 2. Non-Specific Active Suicidal Thoughts (Past 1 Month) No 01/29/2025 9:13 PM EST Kike Pagan RN 6. Suicidal Behavior (Lifetime) No 01/29/2025 9:13 PM EST Kike Pagan RN documented as of this encounter Discharge Summaries * Ruddy Umaña CNP - 02/04/2025 12:22 PM EST Images from the original note were not included. Physician Discharge Summary Admit date: 01/29/2025 Discharge date: 02/04/2025 Patient Information Yecenia Gaines, 75 y.o. female ( = 1950) Home Address[address] [address] [place], [place] [address] [place] [address] (home) Preferred Language: Libyan Written Language: Libyan Needs Stitch Bonder Machine Operator Helper: No Type of Advance Care Directive(s): Health Care Proxy Does patient have a Health Care Proxy form completed?: Electronic copy of HCP available Health Care Agents Gabriel Hilario Alternate Healthcare Agent (Proxy form on file) - Friend Not Active Primary (Mobile) Gurmeet EastonPrimary Health Care Agent (Proxy form on file) - Son Not Active Primary (Mobile) Sree Goldberg Other (no proxy form on file) - [...] and Left Heart Catheterization with possible LVGRAM Carlo Dawn Staff: Carlo Dawn MD - Primary Procedures this admission None Non (OR) Procedures: Pending Results Procedure Component Value Ref Range Date/Time Renin Activity [[id number]] Collected: 02/04/25 050 Lab Status: In process Specimen: Blood Updated: 02/04/25511 Aldosterone [[id number]] Collected: 02/04/25506 Lab Status: In process Specimen: [...] The patient should follow-up with her usual user experience designer as recommended by Dr. Kaplan from nephrologyhere The patient should follow-up with her primary poultry farm supervisor at [facility] Medications Allergies: Allerg kellee [email or web address]; Codeine; Lisinopril; Nsaids (non- steroidal anti-inflammatory drug); and Hydralazine Prior to Admission Medications Prescriptions apixaban (ELIQUIS) 2.5 mg Sig: Take 2.5 mg by mouth 2 (two) times a day. ascorbic kpng-oznshcti-ddu (VITAMIN C ENERGY BOOSTER) 1,000 mg PwEP [...] Pwep oral powder packet Generic drug: ascorbic [id number]-hxeccnrk-lma TAKE these medications Instructions amLODIPine 5 MG [...] Your Medications These medications were sent to [facility]/pharmacy #[id number] - [address] AT [address] TO [place] [id number] amLODIPine 5 MG tablet empagliflozin 10 mg tablet isosorbide dinitrate 40 MG immediate release tablet torsemide 60 mg [facility] Care Team Service: Critical Care Inpatient Attending: Erik Parry MD Attending phys phone: Discharge Unit: [facility] Primary Care Physician: London Boyer MD [phone] Transitional Plan Scheduled appointments: Scheduled Appointments (maximum listed = 10) Provider Department Dept Phone Center Visit Type 04/07/2025 12:00 PM (Arrive by 11:45 AM) Naun Duran DO [facility] [phone] New Patient Your Follow-Up Appointments London Boyer MD Specialty: Nephrology, Internal Medicine Relationship: PCP - General [address] [place] [address] Schedule an appointment as soon as possible for a visit in 1 week(s) Signed Discharge Orders (From admission, onward) Ordered 02/04/251217 Activity as tolerated 02/04/251217 Discharge diet Comments: Diet Regular; Fluid Restriction total / 24h: 2000 ML FLUID; Fat Restriction: Low fat (cardiac); Sodium Restriction: 2 GM NA 02/04/25 1218 For immediate questions regarding your hospitalization, your medications, and any pending test results please contact your PCP: London Boyer MD at [phone]. Comments: For immediate questions regarding your hospitalization, your medications, and any pendingtest results please contact your PCP: London Boyer MD at [phone]. Discharge instructions and important events and results None Exam Temperature: 36.8 ??C (98.3 ??F) (02/04/25 08) Heart Rate: (!) 59 (02/04/25 08) BP: (!) 147/95 (02/04/25 08) Respiratory Rate: 18 (02/04/25 08) SpO2: 96 % (02/04/25 08) O2 Device: None (Room air) (02/04/25 08) O2 Flow Rate (L/min): 2 O2 Flow Rate (mL/min): 6 FiO2 (%): 30 % (01/30/25 0730) Weight: 71.2 kg (156 lb 15.5 oz) (02/04/25 0500) Height: 172.7 cm (5' 7.99 ) (01/29/25 2330) BMI (Calculated): 25.21 (01/29/25 2330) Disability Identity and Disability Accommodations Comments Disability Identity Physical/Mobility Disability Accommodations Comments Pt uses walker and right leg cannot be touched Data/Results Results are shown for the following tests if performed (CBC, Chem 7, Mg, Coag). If the patient did not have any of these tests, no results will be shown here. Lab Results Component Value Date/Time WBC 4.40 02/04/2025 050 RBC 3.06 (L) 02/04/2025506 HGB 8.5 (L) 02/04/2025506 HCT 28.8 (L) 02/04/2025506 MCH 27.8 02/04/2025506 MCV 94.1 02/04/2025506 PLT 297 02/04/2025506 RDW 15.4 (H) 02/04/2025506 Lab Results Component Value Date/Time NA 141 02/04/2025506 K 4.3 02/04/2025506 CL 96 (L) 02/04/2025 0507 CO2 27 02/04/20257 BUN 77 (H) 02/04/2025506 CRE 3.70 (H) 02/04/2025506 CA 9.1 02/04/2025506 GLU 127 (H) 02/04/2025 050 Lab Results Component Value Date/Time MG 2.0 02/03/20255 Lab Results Component Value Date/Time PT 13.0 01/29/20252009 PTINR 1.1 01/29/20252009 Time > 30 min Cosigned by Erik Parry MD at 02/04/2025 12:26 PM EST documented in this encounter Discharge Instructions * Attachments The following attachments cannot be sent through Care Everywhere. * Empagliflozin (Libyan) documented in this encounter Medications at Time [...] documented as of this encounter Progress Notes * Krissy Melara RN - 02/04/2025 10:40 AM EST Case Management - Discharge Note 02/04/25 1039 Discharge Planning Evaluation Patient/Family/Caregiver participated and agreed with DC plan Yes Discharge Plan Expected Discharge Disposition Home with VNA Disposition Comments Pt discharging home today with [facility] for SN. EMS will provide transport home via chair van. Mode of DC Transportation Chair car Discharge address same as facesheet Yes Patient/Family declines facility rehab N/A Case Management Note: Discharge with Home Health Agency/VNA Communication Summary: Pt discharging home today with [facility] for SN. Chart reviewed, plan of care and discharge options discussed with the treatment team, and the patient and/or a circulation sales representative. The discharge plan is home [...] discussed with patient or their designee. This [facility] has established relationships with non-acute providers that meet [facility] [place] Healthcare[place] criteria. These relationships were discussed with the patient or circulation sales representative before a post-acute referral was made. Choice was provided before making referrals to post-acute providers,agencies, and vendors. Discharge Planning is conducted as outlined in the Code of Federal Regulations- Conditions of Participation for Hospitals under Title 42, Part 482, specifically Discharge Planning, 482 C.F.R. ?? 482.43 (2023). Krissy Melara RN * Jamey Kaplan MD - 02/04/2025 8:53 AM EST Subjective no acute issues overnight, cardiac cath yesterday pulmonary wedge pressure of 9 Subjective Medications amLODIPine 5 mg Oral Daily apixaban 2.5 mg Oral BID chlorhexidine gluconate 1 Application Topical Daily cloNIDine HCL 0.1 mg Oral Q8H docusate 100 mg Oral BID empagliflozin 10 mg Oral Daily Olvera Care wipe Topical BID isosorbide dinitrate 40 mg Oral Q8H metoprolol tartrate 50 mg Oral BID polyethylene glycol 17 g Oral Daily predniSONE 5 mg Oral Daily senna 2 tablet Oral Nightly torsemide 60 mg Oral BID Daytime acetaminophen, atropine, guaiFENesin, ipratropium-albuteroL, phenoL, simethicone, sodium chloride, sodium chloride, sore throat Objective Last vitals 36.8 ??C (98.3 ??F) P (!) 59 BP (!) 147/95 RR 18 SpO2 96 % 2 FiO2 30 % 71.2 kg (156 lb 15.5 oz) Objective: Vital signs: (most recent): Blood pressure (!) 147/95, pulse (!) 59, temperature 36.8 ??C (98.3 ??F), temperature source Tympanic, resp. rate 18, height 172.7 cm (5' 7.99 ), weight 71.2 kg (156 lb 15.5 oz), SpO2 96%. Oral moist mucosa Lungs decreased BSs bilaterally s1s2 abd soft nt +BSs Ext +edema Neuro awake and alert Skin no rash Patient Lines/Drains/Airways Status Active Lines and Drains Name Placement date Placement time Site Days Peripheral IV Anterior;Right Forearm 02/01/25 0001 Forearm 3 Peripheral IV Anterior;Left Forearm 02/03/25 1228 Forearm less than 1 Urinary Catheter 16 Fr. 01/31/25 1800 -- 3 Labs: CBC: Recent Labs 02/02/25 0417 02/03/25 0425 02/04/25 0507 WBC 3.00* 3.75* 4.40 HGB 8.4* 8.3* 8.5* HCT 29.1* 28.9* 28.8* PLT 235 261 297 COAGS: No results for input(s): PT , PTT , INR in the last 72 hours. BMP: Recent Labs 02/01/25 1541 02/02/25 0417 02/03/25 0425 02/04/25 0507 NA 141 140 136 141 K 4.9 4.2 4.2 4.3 CL 101 103 97* 96* CO2 23 24 26 27 BUN 56* 59* 69* 77* CRE 3.40* 3.20* 3.30* 3.70* GLU 158* 125* 135* 127* MG 2.0 2.0 2.0 -- PHOS 2.6 3.5 4.9* -- CA 9.3 9.2 9.3 9.1 LFTs/Chemistries: No results for input(s): ALB , ALKP , TP , ALT , AST , DBILI , TBILI in the last 72 hours. Cardiac cath Normal filling pressures. No significant obstructive coronary artery disease. Assessment/Plan Brief Summary: Patient is a 75 y.o. female with a history of CKD stage 4 baseline creatinine 2.6-2.8 mg/dL following with her outpatient user experience designer Dr. London Anaya in [place] [facility], patient known to have longstanding history of hypertensive disease chronic steroid exposure for arthritis CAD status post PCI drug-eluting stent to RCA in the past DVT/PE on apixaban and HFr EF who [place] the hospital for evaluation of increased shortness of breath found in pulmonary edema with acutehypoxic respiratory failure in the emergency room found profoundly hypertensive blood pressure 235/130 started on noninvasive ventilation nitroglycerin drip IV furosemide diuresing along with this order influenza A test was positive initiated on oseltamivir patient was then transferred to ICU whereshe has received a dose of 80 mg IV furosemide 1.2 L of urine output initially, creatinine levels initially found at 3.5 mg/dL today down to 3.3 mg/d Code Status: Full Code Computed KFRE 2-Year unavailable. One or more values for this score either were not found within the given timeframe or did not fit some other criterion. Computed KFRE 5-Year unavailable. One or more values for this score either were not found within the given timeframe or did not fit some other criterion. Assessment & Plan Flash pulmonary edema Acute kidney injury superimposed on chronic kidney [...] nephrology perspective she has established relationship with user experience designer Dr. Anaya in [place], I will make sure she has follow-up with them with blood chemistries within a week - Patient clearly stated would like to avoid any form of dialysis in the future which she is discussed with her outpatient user experience designer. Hypertensive emergency - Blood pressure is reasonable on clonidine, metoprolol could consider addition of hydralazine if cardiology agrees - If being discharged could consider Doppler renal arteries as an outpatient follow-up with outpatient user experience designer and poultry farm supervisor. Acute respiratory failure with hypoxia and hypercapnia History of pulmonary embolism Influenza A Mitral regurgitation * Cathie He RN - 02/04/2025 6:18 AM EST Nursing Progress Note 24 hour urine from 1700 02/03 to 1700 02/04, on ice in bathroom. Olvera in place until urine collection complete. Pt slept well overnight. Occasional nonproductive coughing episodes, requested 2L NC briefly last night for comfort, now back on RA. HR remains rizwana 40s-60s w/ PACs/PVCs. Lopressor held d/t rizwana parameters but isordil and clonidine tolerated well. Gas pains appear to have resolved, pt now has hyperactive BS and hopes to move her bowels today. Declined her senna but requested colace, also has simethicone prn. * Carol Ann Yates RN - 02/03/2025 7:38 PM EST Nursing Progress Note Patient remains alert and oriented. Hypertensive this morning and responded well to scheduled Clonidine. Takes her pills crushed due to difficulty swallowing pill whole. Metoprolol held due to bradycardia. Pre-Op checklist performed before QUEENIE this morning. Patient arrived back to the floor at 1430 s/p QUEENIE and Cardiac cath. Followed the post sheath radialprotocol on right wrist. No bleeding noted and pressure band removed at 1600. Reports abdominal pain this evening. TIMOTHY notified and KUB done. TIMOTHY Meza kept abreast of patient status, abnormal labs, and response to interventions. * Christa Mcclure PA-C, MS - 02/03/2025 4:18 PM EST [facility] ICU Progress Note 02/03/2025 4:26 PM Patient: Yecenia Gaines Hospital Day: Hospital Day: 6 HOSPITAL COURSE: Yecenia Gaines is a 75-year-old female with [...] initiation of targeted therapy for influenza A. OVERNIGHT EVENTS: No overnight events Edited by: Daysi Mckenzie PA-C at 02/03/2025 0632 QUEENIE showed mod MR. Cardiac cath PCWP 9, CO 4.9, CI 2.7. No significant obstructive CAD. SUBJECTIVE: Frustrated and confused about why she keeps ending up in the hospital. Acknowledged that last admission she had missed her clonidine but hasn't missed any doses this time. OBJECTIVE: Last vitals 36 ??C (96.8 ??F) P (!) 58 BP (!) 161/71 RR 19 SpO2 98 % 3 FiO2 30 % 69.9kg (154 lb 1.6 oz) General: Appears mildly anxious. ENT: Mucous membranes moist. Cardiovascular: Regular, bradycardia,heart rate 50s. Pulmonary: No respiratory distress on room air. Lungs clear bilaterally. Abdominal:Positive bowel sounds, soft, nontender nondistended. Extremities: No edema. Skin: Warm and well-perfused. Neuro: Alert and oriented x 3, nonfocal. PERTINENT TEST RESULTS / INTERPRETATION: CBC: 3.75* \ 8.3* / 261 / 28.9* \ 02/03 425 BMP: 136 97* 69* / 135* 4.2 26 3.30* \ 02/03 425 Lab Results Component Value Date MG 2.0 02/03/2025 , Lab Results Component Value Date CA 9.3 02/03/2025 PHOS 4.9 (H) 02/03/2025 All other labs have been reviewed. IMPRESSION/PLAN: 75 yo F with history of HFpEF, CKD, DVT/PE on apixaban and arthritis on chronic prednisone who presents to the ED in respiratory distress, fever and hypertension. Found to be positive for influenza Aand flash pulmonary edema. Active Hospital Problems Diagnosis Date Noted Mitral regurgitation 02/03/2025 Influenza A 01/29/2025 Flash pulmonary edema 06/07/2024 Acute kidney injury superimposed on chronic kidney disease 06/07/2024 Acute respiratory failure with hypoxia and hypercapnia 06/07/2024 Hypertensive emergency 06/07/2024 History of pulmonary embolism 10/19/2016 Quality Clinical Documentation: Hypoalbuminemia . Monitoring . Albumin of 3 on 01/31/2025 NEURO: Feeling a lot of stress in her life. --Social work for support --Case management for VNA after hospitalization. PULMONARY: Acute respiratory failure d/t pulmonary edema and influenza A. Initially required rescueNIV. Now weaned to RA with improved volume status. --Diuresis as below --C/w Tamiflu as below --Mobilize CARDIO: Hypertensive Emergency, pulmonary edema. H/o CAD and RCA stenting, cardiac cath today without significant obstructive coronary disease. Mod MR on QUEENIE. Cards recommends medical management and better BP control. Last hospitalization the patient had missed clonidine doses. This time she reports being very diligent and not missing any doses. Resistant HTN. No evidence for BLANQUITA. TSH ok. Pt denies FLOR. --Check renal artery doppler --Check renin, mariel, cortisol --Check urine for metanephrines and catecholamines --C/w Clonidine, isordil, and metoprolol. Adjust meds prn --D/c Nifedipine, pt unable to take meds without chewing or crushing them. --C/w torsemide GI: No acute issues. --Diet as tolerated : Acute on chronic kidney injury appreciate nephrology consultation and recommendations. Unfortunately, the patient can't take nifedipine as she chews her medications --D/c olvera --Plan as above FEN: Trend electrolytes especially serum potassium level while aggressive diuresis is ongoing HEME: Eliquis 2.5 mg twice daily (held 02/02/25). Restart in am. ENDOCRINE: Prednisone 5 mg daily chronically. ID: Influenza A positive. Pt symptomatically improved. --Tamiflu, day 5 of 5. Urinary Catheter: plan to continue with catheter for close urine output monitoring DVT Prophylaxis: Apixaban Code Status: Full Code A total of 50 minutes of time was spent directly caring for patient, independent of procedure time.This case will be discussed with Dr. Parry. Christa Mcclure PA-C, MS Cosigned by Erik Parry MD at 02/03/2025 5:05 PM EST * Carlo Dawn MD - 02/03/2025 1:20 PM EST History Patient Active Problem List Diagnosis CHF exacerbation Symptomatic anemia Acute kidney injury superimposed on chronic kidney disease Hypertensive emergency Flash pulmonary edema Osteoarthritis of right knee Acute respiratory failure with hypoxia and hypercapnia Pulmonary edema Respiratory distress Hypertensive urgency History of pulmonary embolism Influenza A Past Medical History: Diagnosis Date Anemia Congestive heart failure Hypertensive disorder Osteoarthritis Bilateral knees right greater than left, and ankles and wrists uri ST elevation (STEMI) myocardial infarction 2018 Past Surgical History: Procedure Laterality Date COLONOSCOPY N/A 06/12/2024 Performed by Cristian Maynard MD at [facility] ENDOSCOPY CORONARY ANGIOPLASTY WITH STENT PLACEMENT 10/2018 History reviewed. No pertinent family history. Social History Tobacco Use Smoking status: Never Smokeless tobacco: Never Substance Use Topics Alcohol use: Never Drug use: Never Current Facility-Administered Medications Medication Dose Route Frequency Provider Last Rate Last Admin [Transfer Hold] acetaminophen (TYLENOL) tablet 650 mg 650 mg Oral Q6H PRN Daysi Mckenzie PA-C 650 mg at 02/02/25 0920 [Held by provider] apixaban (ELIQUIS) tablet 2.5 mg 2.5 mg Oral BID Daysi Mckenzie PA-C 2.5 mg at 02/01/252024 [Transfer Hold] chlorhexidine gluconate 2 % wipe 1 each 1 Application Topical Daily Daysi Mckenzie PA-C 1 each at 02/03/25 0930 [Transfer Hold] cloNIDine HCL (CATAPRES) tablet 0.2 mg 0.2 mg Oral Q8H Byrnn Keller MD 0.2 mg at 02/03/25 0855 [Transfer Hold] empagliflozin (JARDIANCE) tablet 10 mg 10 mg Oral Daily Carlo Dawn MD fentaNYL (PF) (SUBLIMAZE) injection PRN Carlo Dawn MD 25 mcg at 02/03/25 1314 [Transfer Hold] Olvera Care wipe (SURESTEP POST INSERTION) towelette Topical BID Patsy Sanders PA-C, MPH 1 each at 02/03/25 0855 [Transfer Hold] guaiFENesin (ROBITUSSIN) 100 mg/5 mL syrup 400 mg 400 mg Oral Q6H PRN Daysi Mckenzie PA-C 400 mg at 02/02/25 1631 [Transfer Hold] ipratropium-albuteroL (DUONEB) 0.5-3 mg (2.5 mg base)/3 mL nebulizer solution 3 mL 3 mL Nebulization Q6H PRN Patsy Sanders PA-C, MPH [Transfer Hold] isosorbide dinitrate (ISORDIL) IMMEDIATE release tablet 40 mg 40 mg Oral Q8H Patsy Sanders PA-C MPH 40 mg at 02/03/25 0549 [Transfer Hold] metoprolol tartrate (LOPRESSOR) IMMEDIATE release tablet 50 mg 50 mg Oral BID Daysi Mckenzie PA-C 50 mg at 02/01/252024 [Transfer Hold] NIFEdipine (ADALAT CC) ER tablet 30 mg 30 mg Oral Daily Ruddy Umaña CNP 30mg at 02/02/25 0921 [Transfer Hold] phenoL (CHLORASEPTIC) 1.4 % mouth spray 1 spray 1 spray Mouth/Throat Q2H PRN Daysi Mckenzie PA-C 1 spray at 01/30/25 0403 [Transfer Hold] polyethylene glycol packet 17 g Oral Daily PRN Daysi Mckenzie PA-C [Transfer Hold] predniSONE (DELTASONE) tablet 5 mg 5 mg Oral Daily Daysi Mckenzie PA-C 5 mg at 02/03/25 0855 [Transfer Hold] senna (SENOKOT) tablet 2 tablet 2 tablet Oral Nightly Daysi Mckenzie PA-C [Transfer Hold] sodium chloride (NS) 0.9 % syringe flush 3 mL 3 mL Intravenous PRN Daysi Mckenzie PA-C [Transfer Hold] sodium chloride (NS) 0.9 % syringe flush 3 mL 3 mL Intravenous PRN Stephania Dawn MD [Transfer Hold] sodium chloride (OCEAN) 0.65 % nasal spray 1 spray 1 spray Each Nare PRN Patsy Sanders PA-C, MPH 1 spray at 02/01/25 0532 [Transfer Hold] sore throat (CEPACOL) lozenge 1 lozenge 1 lozenge Mouth/Throat TID PRN Daysi Mckenzie PA-C 1 lozenge at 02/02/25 0918 [Transfer Hold] torsemide (DEMADEX) tablet 60 mg 60 mg Oral BID Daytime Ruddy Umaña BLOCK TRIMMER 60mg at 02/03/25 0855 Vitals BP (!) 147/58 Pulse (!) 55 Temp 36.1 ??C (97 ??F) (Tympanic) Resp 19 Ht 172.7 cm (5' 7.99 ) Wt 69.9 kg (154 lb 1.6 oz) SpO2 100% BMI 23.44 kg/m?? Pre-Sedation Evaluation Chief Complaint: Right Heart Catheterization +/- Biopsy and Coronary Angiography +/- Intervention HPI: Yecenia Gaines is a 75 y.o. female presenting for Right Heart Catheterization +/- Biopsy and Coronary Angiography +/- Intervention. ROS/Med History General Patient has no history of anesthetic complications. Cardiovascular Patient has congestive heart failure. Patient has valvular problems/murmurs. These include: MR. Pulmonary Patient has shortness of breath. GI/Hepatic/Renal GI/hepatic/renal review of systems negative except as noted below. Neuro/Psych Neuro/psych review of systems negative except as noted below. Endo/Metabolic/Other Negative endo/other ROS. Hematologic Hematology review of systems negative except as noted below. Musculoskeletal Musculoskeletal review of systems negative except as noted below. Physical Exam NPO Status: Yes Airway: Mallampati score is II. Cardiovascular: Murmur are present at examination. Pulmonary: The pulmonary exam is normal. Neurological: The neurological exam is normal. Sedation Plan ASA Score: 3Sedation Plan: Patient will be placed on manager cardiac cath and continuous pulse oximetry. Intravenous access will bemaintained. Bag valve mask, oxygen and suction will be available at the bedside. Emergency airway equipment will be immediately available. Medication Plan: Versed (midazolam) initial dose 1mg IV push may repeat x2, then 0.5-1mg IV push every 3 minutes x 8doses PRN titrate to moderate sedation. Fentanyl initial dose 25mcg IV push may repeat x2, then 12.5mcg-50mcg IV push every 3 minutes x 6 doses PRN titrate to moderate sedation. Informed Consent: Informed consent obtained from: patient Discharge Plan: Discharge Plan: Remain admitted * Jamey Kaplan MD - 02/03/2025 10:02 AM EST Subjective no acute issues reported overnight urine output 1800 last shift Subjective Medications [Held by provider] apixaban 2.5 mg Oral BID chlorhexidine gluconate 1 Application Topical Daily cloNIDine HCL 0.2 mg Oral Q8H empagliflozin 10 mg Oral Daily Olvera Care wipe Topical BID isosorbide dinitrate 40 mg Oral Q8H metoprolol tartrate 50 mg Oral BID NIFEdipine 30 mg Oral Daily predniSONE 5 mg Oral Daily senna 2 tablet Oral Nightly torsemide 60 mg Oral BID Daytime acetaminophen, guaiFENesin, ipratropium-albuteroL, phenoL, polyethylene glycol, sodium chloride, sodium chloride, sodium chloride, sore throat Objective Last vitals 36.1 ??C (97 ??F) P (!) 54 BP (!) 153/73 RR 16 SpO2 96 % 1 FiO2 30 % 69.9kg (154 lb 1.6 oz) Objective: Vital signs: (most recent): Blood pressure (!) 153/73, pulse (!) 54, temperature 36.1 ??C (97 ??F),temperature source Tympanic, resp. rate 16, height 172.7 cm (5' 7.99 ), weight 69.9 kg (154 lb 1.6 oz), SpO2 96%. Oral moist mucosa Lungs decreased BSs bilaterally s1s2 abd soft nt +BSs Ext +edema Neuro awake and alert Patient Lines/Drains/Airways Status Active Lines and Drains Name Placement date Placement time Site Days Peripheral IV Anterior;Right Forearm 02/01/25 0001 Forearm 2 Urinary Catheter 16 Fr. 01/31/25 1800 -- 2 Labs: CBC: Recent Labs 02/01/25 0423 02/02/25 0417 02/03/25 0425 WBC 3.03* 3.00* 3.75* HGB 7.6* 8.4* 8.3* HCT 26.6* 29.1* 28.9* PLT 217 235 261 COAGS: No results for input(s): PT , PTT , INR in the last 72 hours. BMP: Recent Labs 02/01/25 1541 02/02/25 0417 02/03/25 0425 NA 141 140 136 K 4.9 4.2 4.2 CL 101 103 97* CO2 23 24 26 BUN 56* 59* 69* CRE 3.40* 3.20* 3.30* GLU 158* 125* 135* MG 2.0 2.0 2.0 PHOS 2.6 3.5 4.9* CA 9.3 9.2 9.3 LFTs/Chemistries: No results for input(s): ALB , ALKP , TP , ALT , AST , DBILI , TBILI in the last 72 hours. Assessment/Plan Brief Summary: Patient is a 75 y.o. female with a history of CKD stage 4 baseline creatinine 2.6-2.8 mg/dL following with her outpatient user experience designer Dr. London Anaya in [facility], patient known to have longstanding history of hypertensive disease chronic steroid exposure for arthritis CAD status post PCI drug-eluting stent to RCA in the past DVT/PE on apixaban and HFr EF who [place] [facility] for evaluation of increased shortness of breath found in pulmonary edema with acutehypoxic respiratory failure in the emergency room found profoundly hypertensive blood pressure 235/130 started on noninvasive ventilation nitroglycerin drip IV furosemide diuresing along with this order influenza A test was positive initiated on oseltamivir patient was then transferred to ICU whereshe has received a dose of 80 mg IV furosemide 1.2 L of urine output initially, creatinine levels initially found at 3.5 mg/dL today down to 3.3 mg/dL. She reports feeling significantly better, as she remains in JHONY superimposed on CKD a renal consultation has been requested. JHONY superimposed on CKD JHONY likely result of renal hypoperfusion associated with a combination of congestive nephropathy inthe setting of decompensated congestive heart failure/cardiorenal syndrome and uncontrolled malignant hypertension potentially further kidney injury via endothelial injury, doubt other forms of JHONY at the present time fortunately she is responding to diuresis and decongestion 2 L of urine so far, and blood pressure control on nicardipine drip. I doubt presence of systemic glomerular disease, doubt evidence of MAHA as her platelet count is normal, doubt AIN or ATN at the present time. 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 One or more values for this score either were not found within the given timeframe or did not fit some other criterion. Computed KFRE 5-Year unavailable. One or more values for this score either were not found within the given timeframe or did not fit some other criterion. Assessment & Plan Flash pulmonary edema Acute kidney injury superimposed on chronic kidney disease - Renal function slowly improving diuresed weight is down 254 pounds 11-13 pound lower since admission consider transition to torsemide 60 mg p.o. twice daily consider adding metolazone 5 mg p.o., twice weekly continue with empagliflozin. -Vasodilators as per poultry farm supervisor recommendation, may potentially benefit from heart failure program evaluation and mitral valve procedure will defer to poultry farm supervisor expertise. Hopefully able to complete workup for MitraClip intervention -Unfortunately due to JHONY would hold off on rest of GDMT agents -Trend hemoglobin check iron stores replete as needed May also benefit from CLARI. - strict I/Os, daily weights, please avoid nephrotoxins (IV contrast, NSAIDs) - please dose reduce antibiotics/medications as appropriate for eGFR - Patient has established relationship with user experience designer Dr. Anaya in [place], - Patient clearly stated would like to avoid any form of dialysis in the future which she is discussed with her outpatient user experience designer. Hypertensive emergency - Blood pressure is reasonable on clonidine, metoprolol and nifedipine. - Unclear if she shad a Doppler renal artery in the past If she is still in house on Sunday could rule out PATTI while inpatient Acute respiratory failure with hypoxia and hypercapnia History of pulmonary embolism Influenza A * Kanika Hernandez RN - 02/02/2025 7:49 PM EST Nursing Progress Note Pt due for diagnostic cardiac cath and QUEENIE tomorrow morning. Eliquis on hold. Pt with fluctuating understanding and acceptance of her recommended meds and plan of care. Sometimes refusing things thatseem essential despite education. Stable on room air, afebrile. Late morning Bps dropping lower than pt is used to- expressing severe dizziness- 500cc bolus given with good effect. Sinus rizwana on monitor in the 50s, still with inverted T wave. Later in shift pt with higher pressures than they were and decent but not great urine out (35cc/hr). Diuretic that had been on hold un-held and evening dose given. Pt able to ambulate independently with walker in hallway. Refused new Jardiance dose until she can discuss it with a doctor, poultry farm supervisor made aware. * Charmaine Chiu RN - 02/02/2025 3:55 PM EST Case Management Note: Concurrent Communication summary: 02/02/25 5540 Discharge Planning Evaluation Patient/Family/Caregiver discharge preference/goals (TBD) Discharge Plan Expected Discharge Disposition (TBD) Disposition Comments Reviewed with provider. Met with pt at bedside. D/c plan TBD. Lives at home independently at baseline. Plan for cardiac cath 02/03 to determine meed for acute transfer for mirtalvalve. Will follow up with pt tomorrow. Delays to discharge: Length of Stay 4 Expected Discharge Date: TBD HCP Confirmed: Advance Care Planning reviewed: Yes Does patient have a Health Care Proxy form completed?: Electronic copy of HCP available [facility] [place] [place], [facility] Medicare Preferred): No If YES, has the casework specialist and an [facility] [place] Activities Therapist reviewed discharge planning options based on the patient's current medical and functional status. No A discharge to a post-acute care facility is anticipated: Not applicable [facility] Community Outreach Advocate if applicable: No care steamfitter apprentice to display Discharge facility list offered to patient/family: Patient/Family/Caregiver have been provided a list of discharge facilities/services to review/select: Home Health Services (02/01/2025 1:38 PM) This [facility] has established relationships with non-acute providers that meet [facility] [place]. These relationships were discussed with the patient or circulation sales representative before a post-acute referral was made. Choice was provided before making referrals to post-acute providers,agencies, and vendors. Discharge Planning is conducted as outlined in the Code of Federal Regulations- Conditions of Participation for Hospitals under Title 42, Part 482, specifically Discharge Planning, 482 C.F.R. ?? 482.43 (2023). Charmaine Chiu RN * Ruddy Umaña CNP - 02/02/2025 2:09 PM EST [facility] ICU Progress Note 02/02/2025 2:09 PM Patient: Yecenia Gaines Hospital Day: Hospital Day: 5 HOSPITAL COURSE: Yecenia Gaines is a 75-year-old female with [...] initiation of targeted therapy for influenza A. OVERNIGHT EVENTS: Increased isordil dose, lasix at 10mg.hr ~200 cc.hr uop Edited by: Patsy Sanders PA-C, MPH at 02/01/2025 6242 SUBJECTIVE: Cough persists OBJECTIVE: Last vitals 36.7 ??C (98.1 ??F) P (!) 52 BP 125/53 RR 17 SpO2 94 % 1 FiO2 30 % 69.9 kg (154 lb 1.6 oz) Physical Exam Constitutional: General: She is not in acute distress. Appearance: Normal appearance. She is not ill-appearing or toxic-appearing. HENT: Head: Normocephalic. Mouth/Throat: Mouth: Mucous membranes are moist. Pharynx: No oropharyngeal exudate. Eyes: Conjunctiva/sclera: Conjunctivae normal. Pupils: Pupils are equal, round, and reactive to light. Cardiovascular: Rate and Rhythm: Normal rate. Heart sounds: Murmur heard. Pulmonary: Effort: Pulmonary effort is normal. Breath sounds: Wheezing and rhonchi present. No rales. Abdominal: General: Bowel sounds are normal. Palpations: Abdomen is soft. Musculoskeletal: General: No swelling. Cervical back: Normal range of motion. Skin: General: Skin is warm. Capillary Refill: Capillary refill takes 2 to 3 seconds. Neurological: General: No focal deficit present. Mental Status: She is alert. Psychiatric: Mood and Affect: Mood normal. PERTINENT TEST RESULTS / INTERPRETATION: CBC: 3.00* \ 8.4* / 235 / 29.1* \ 02/02 041 BMP: 140 103 59* / 125* 4.2 24 3.20* \ 02/02 417 Lab Results Component Value Date MG 2.0 02/02/2025 , Lab Results Component Value Date CA 9.2 02/02/2025 PHOS 3.5 02/02/2025 All other labs have been reviewed. IMPRESSION/PLAN: 75 yo F with history of HFpEF, CKD, DVT/PE on apixaban and arthritis on chronic prednisone who presents to the ED in respiratory distress, fever and hypertension. Found to be positive for influenza Aand flash pulmonary edema. Active Hospital Problems Diagnosis Date Noted Influenza A 01/29/2025 Flash pulmonary edema 06/07/2024 Acute kidney injury superimposed on chronic kidney disease 06/07/2024 Acute respiratory failure with hypoxia and hypercapnia 06/07/2024 Hypertensive emergency 06/07/2024 History of pulmonary embolism 10/19/2016 Quality Clinical Documentation: Hypoalbuminemia . Monitoring . Albumin of 3 on 01/31/2025 NEURO: No acute issues PULMONARY: Influenza A with resultant hypoxic respiratory failure requiring noninvasive ventilatorysupport now resolving Complete full course of Tamiflu pulmonary edema concurrently IV diuresis w/ Lasix infusion now d/c'ed Start 60mg PO BID Torsemide per Nephrology recs As needed BiPAP therapy goal SpO2 greater than 95% has not used past 24 hrs CARDIO: Hypertensive urgency improved continue usual Catapres, Isordil, Lopressor --IV nicardipine is discontinued. added p.o. nicardipine 30 mg XL daily per nephrology recommendation Added PO Torsemide 60mg BID as above today Appreciate cardiology evaluation for recurrent flash pulmonary edema. Per their review the patient has moderate to severe eccentric mitral regurgitation. Cardiology feels that the patient should undergo diagnostic cardiac catheterization on tomorrow along with transesophageal echocardiogram both of which have been requested. Hold systemic a/c May need MV clipping vs. Open repair await results of QUEENIE and cards recs after this procedure tomorrow GI: No acute issues n.p.o. after midnight in anticipation of cardiology procedures above : Acute on chronic kidney injury appreciate nephrology consultation and recommendations. Olvera catheter for close monitoring of renal function and urine output with IV Lasix infusion Will initiate Lasix infusion as recommended and gave one-time dose metolazone 5 mg FEN: Trend electrolytes especially serum potassium level while aggressive diuresis is ongoing HEME: Eliquis 2.5 mg twice daily (held 02/02/25) ENDOCRINE: Prednisone 5 mg daily ID: No active issues OTHER: Met with the patient in her room x 35 minutes explained plan Urinary Catheter: plan to continue with catheter for close urine output monitoring DVT Prophylaxis: Apixaban Code Status: Full Code A total of 50 minutes of time was spent directly caring for patient, independent of procedure time. Ruddy Umaña CNP * Jamey Kaplan MD - 02/02/2025 10:08 AM EST Subjective diuresed very well on drip and metolazone , Weight is down 254 pounds cardiac workup initiated for potential MitraClip Subjective Medications [Held by provider] apixaban 2.5 mg Oral BID chlorhexidine gluconate 1 Application Topical Daily cloNIDine HCL 0.2 mg Oral Q8H empagliflozin 10 mg Oral Daily Olvera Care wipe Topical BID isosorbide dinitrate 40 mg Oral Q8H metoprolol tartrate 50 mg Oral BID NIFEdipine 30 mg Oral Daily oseltamivir 30 mg Oral Daily predniSONE 5 mg Oral Daily senna 2 tablet Oral Nightly [Held by provider] furosemide Stopped (02/01/251914) acetaminophen, guaiFENesin, ipratropium-albuteroL, phenoL, polyethylene glycol, sodium chloride, sodium chloride, sodium chloride, sore throat Objective Last vitals 36.6 ??C (97.9 ??F) P (!) 57 BP (!) 160/79 RR 17 SpO2 95 % 1 FiO2 30 % 69.9 kg (154 lb 1.6 oz) Objective: Vital signs: (most recent): Blood pressure (!) 160/79, pulse (!) 57, temperature 36.6 ??C (97.9 ??F), temperature source Tympanic, resp. rate 17, height 172.7 cm (5' 7.99 ), weight 69.9 kg (154 lb 1.6 oz), SpO2 95%. Oral moist mucosa Lungs decreased BSs bilaterally s1s2 abd soft nt +BSs Ext +edema Neuro awake and alert Patient Lines/Drains/Airways Status Active Lines and Drains Name Placement date Placement time Site Days Peripheral IV Anterior;Right Forearm 02/01/25 0001 Forearm 1 Urinary Catheter 16 Fr. 01/31/25 1800 -- 1 Labs: CBC: Recent Labs 01/31/25 0513 02/01/25 0423 02/02/25 0417 WBC 3.53* 3.03* 3.00* HGB 8.0* 7.6* 8.4* HCT 27.9* 26.6* 29.1* PLT 230 217 235 COAGS: No results for input(s): PT , PTT , INR in the last 72 hours. BMP: Recent Labs 02/01/25 0423 02/01/25 1541 02/02/25 0417 NA 144 141 140 K 3.5 4.9 4.2 CL 106 101 103 CO2 23 23 24 BUN 54* 56* 59* CRE 3.00* 3.40* 3.20* GLU 214* 158* 125* MG 2.0 2.0 2.0 PHOS 3.4 2.6 3.5 CA 8.7 9.3 9.2 LFTs/Chemistries: Recent Labs 01/31/25 0513 ALB 3.0* ALKP 119 TP 6.5 ALT 30 AST 28 TBILI 0.3 Assessment/Plan Brief Summary: Patient is a 75 y.o. female with a history of CKD stage 4 baseline creatinine 2.6-2.8 mg/dL following with her outpatient user experience designer Dr. London Anaya in [facility], patient known to have longstanding history of hypertensive disease chronic steroid exposure for arthritis CAD status post PCI drug-eluting stent to RCA in the past DVT/PE on apixaban and HFr EF who [place] for evaluation of increased shortness of breath found in pulmonary edema with acutehypoxic respiratory failure in the emergency room found profoundly hypertensive blood pressure 235/130 started on noninvasive ventilation nitroglycerin drip IV furosemide diuresing along with this order influenza A test was positive initiated on oseltamivir patient was then transferred to ICU whereshe has received a dose of 80 mg IV furosemide 1.2 L of urine output initially, creatinine levels initially found at 3.5 mg/dL today down to 3.3 mg/dL. She reports feeling significantly better, as she remains in JHONY superimposed on CKD a renal consultation has been requested. JHONY superimposed on CKD JHONY likely result of renal hypoperfusion associated with a combination of congestive nephropathy inthe setting of decompensated congestive heart failure/cardiorenal syndrome and uncontrolled malignant hypertension potentially further kidney injury via endothelial injury, doubt other forms of JHONY at the present time fortunately she is responding to diuresis and decongestion 2 L of urine so far, and blood pressure control on nicardipine drip. I doubt presence of systemic glomerular disease, doubt evidence of MAHA as her platelet count is normal, doubt AIN or ATN at the present time. 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 One or more values for this score either were not found within the given timeframe or did not fit some other criterion. Computed KFRE 5-Year unavailable. One or more values for this score either were not found within the given timeframe or did not fit some other criterion. Assessment & Plan Flash pulmonary edema Acute kidney injury superimposed on chronic kidney disease - Renal function slowly improving diuresed weight is down 254 pounds 11-13 pound lower since admission consider transition to torsemide 60 mg p.o. twice daily -Vasodilators as per poultry farm supervisor recommendation, may potentially benefit from heart failure program evaluation and mitral valve procedure will defer to poultry farm supervisor expertise. Hopefully able to complete workup for MitraClip intervention - Blood pressure control noted, suggest to add SGLT2 inhibitor -Unfortunately due to JHONY would hold off on rest of GDMT agents -Trend hemoglobin check iron stores replete as needed May also benefit from CLARI. - strict I/Os, daily weights, please avoid nephrotoxins (IV contrast, NSAIDs) - please dose reduce antibiotics/medications as appropriate for eGFR - Patient has established relationship with user experience designer Dr. Anaya in [place], - Patient clearly stated would like to avoid any form of dialysis in the future which she is discussed with her outpatient user experience designer. Hypertensive emergency -Unclear if she shad a Doppler renal artery in the past If she is still in house on Sunday could rule out PATTI while inpatient Acute respiratory failure with hypoxia and hypercapnia History of pulmonary embolism Influenza A * Moni Hayward, RN - 02/01/2025 2:18 PM EST Nursing Progress Note Patient on a lasix gtt at 10mg/hour with hourly urine measurement. Patient transferred to W4, BP running 100's to 110's systolic. Discussed with Benjie Umaña NP with a decrease in lasix gtt to 5mg/hour. * Shana Coelho RN - 02/01/2025 1:39 PM EST Case Management Note: Concurrent Communication summary: Delays to discharge: 02/01/25 1338 Discharge Planning Expected Discharge Disposition Home with VN (home with [facility] for SN) Barriers to Discharge Medical Delays Specialist Consult (QUEENIE, Cardiac Cathon 02/02/25) Discharge Planning Evaluation Patient/Family/Caregiver have been provided a list of discharge facilities/services to review/select Home Health Services Length of Stay 3 Expected Discharge Date: TBD HCP Confirmed: Advance Care Planning reviewed: Yes Does patient have a Health Care Proxy form completed?: Electronic copy of HCP available [facility] [place] [place] ACO, [facility] Medicare Preferred): No If YES, has the casework specialist and an [facility] [place] General Activities Therapist reviewed discharge planning options based on the patient's current medical and functional status. No A discharge to a post-acute care facility is anticipated: Not applicable [facility] Community Outreach Advocate if applicable: No care steamfitter apprentice to display Discharge facility list offered to patient/family: No data recorded This [facility] has established relationships with non-acute providers that meet [facility] [place]. These relationships were discussed with the patient or circulation sales representative before a post-acute referral was made. Choice was provided before making referrals to post-acute providers,agencies, and vendors. Discharge Planning is conducted as outlined in the Code of Federal Regulations- Conditions of Participation for Hospitals under Title 42, Part 482, specifically Discharge Planning, 482 C.F.R. ?? 482.43 (2023). Shana Coelho RN * Ruddy Umaña CNP - 02/01/2025 9:53 AM EST [facility] ICU Progress Note 02/01/2025 9:53 AM Patient: Yecenia Gaines Hospital Day: Hospital Day: 4 HOSPITAL COURSE: Yecenia Gaines is a 75-year-old female with [...] initiation of targeted therapy for influenza A. OVERNIGHT EVENTS: Increased isordil dose, lasix at 10mg.hr ~200 cc.hr uop Edited by: Patsy Sanders PA-C, MPH at 02/01/2025 0696 SUBJECTIVE: Cough persists OBJECTIVE: Last vitals 36.8 ??C (98.3 ??F) P (!) 59 BP (!) 158/49 RR 18 SpO2 97 % 1 FiO2 30 % 75.9 kg (167 lb 5.3 oz) Physical Exam Constitutional: General: She is not in acute distress. Appearance: Normal appearance. She is not ill-appearing or toxic-appearing. HENT: Head: Normocephalic. Mouth/Throat: Mouth: Mucous membranes are moist. Pharynx: No oropharyngeal exudate. Eyes: Conjunctiva/sclera: Conjunctivae normal. Pupils: Pupils are equal, round, and reactive to light. Cardiovascular: Rate and Rhythm: Normal rate. Heart sounds: Murmur heard. Pulmonary: Effort: Pulmonary effort is normal. Breath sounds: Wheezing and rhonchi present. No rales. Abdominal: General: Bowel sounds are normal. Palpations: Abdomen is soft. Musculoskeletal: General: No swelling. Cervical back: Normal range of motion. Skin: General: Skin is warm. Capillary Refill: Capillary refill takes 2 to 3 seconds. Neurological: General: No focal deficit present. Mental Status: She is alert. Psychiatric: Mood and Affect: Mood normal. PERTINENT TEST RESULTS / INTERPRETATION: CBC: 3.03* \ 7.6* / 217 / 26.6* \ 02/01 423 BMP: 144 106 54* / 214* 3.5 23 3.00* \ 02/01 423 Lab Results Component Value Date MG 2.0 02/01/2025 , Lab Results Component Value Date CA 8.7 02/01/2025 PHOS 3.4 02/01/2025 All other labs have been reviewed. IMPRESSION/PLAN: 75 yo F with history of HFpEF, CKD, DVT/PE on apixaban and arthritis on chronic prednisone who presents to the ED in respiratory distress, fever and hypertension. Found to be positive for influenza Aand flash pulmonary edema. Active Hospital Problems Diagnosis Date Noted Influenza A 01/29/2025 Flash pulmonary edema 06/07/2024 Acute kidney injury superimposed on chronic kidney disease 06/07/2024 Acute respiratory failure with hypoxia and hypercapnia 06/07/2024 Hypertensive emergency 06/07/2024 History of pulmonary embolism 10/19/2016 Quality Clinical Documentation: Hypoalbuminemia . Monitoring . Albumin of 3 on 01/31/2025 NEURO: No acute issues PULMONARY: Influenza A with resultant hypoxic respiratory failure requiring noninvasive ventilatorysupport Complete full course of Tamiflu pulmonary edema concurrently continue IV diuresis Lasix infusion today and x 1 more dose Zaroxolyn As needed BiPAP therapy goal SpO2 greater than 95% CARDIO: Hypertensive urgency improved continue usual Catapres, Isordil, Lopressor --IV nicardipine is discontinued. Will add p.o. nicardipine 30 mg XL daily per nephrology recommendation today IV Lasix infusion as above following serum electrolytes closely Appreciate cardiology evaluation for recurrent flash pulmonary edema. Per their review the patient has moderate to severe eccentric mitral regurgitation. Cardiology feels that the patient should undergo diagnostic cardiac catheterization on Sunday along with transesophageal echocardiogram both of ich have been requested. Per Dr. Zhu from cardiology the patient likely needs a more urgent evaluation of the mitral valve and consideration for either endovascular or open surgical repair GI: No acute issues n.p.o. after midnight in anticipation of cardiology procedures above : Acute on chronic kidney injury appreciate nephrology consultation and recommendations. Olvera catheter for close monitoring of renal function and urine output with IV Lasix infusion Will initiate Lasix infusion as recommended and gave one-time dose metolazone 5 mg FEN: Trend electrolytes especially serum potassium level while aggressive diuresis is ongoing HEME: Eliquis 2.5 mg twice daily ENDOCRINE: Prednisone 5 mg daily ID: No active issues OTHER: Met with the patient in her room x 35 minutes explained plan Urinary Catheter: plan to continue with catheter for close urine output monitoring DVT Prophylaxis: Apixaban Code Status: Full Code A total of 50 minutes of time was spent directly caring for patient, independent of procedure time. Ruddy Umaña CNP Cosigned by Brynn Keller MD at 02/03/2025 10:55 AM EST * Jamey Kaplan MD - 02/01/2025 8:11 AM EST Subjective responding well to Lasix drip urine output 2 L / 24 hours 1 L overnight Subjective Medications apixaban 2.5 mg Oral BID chlorhexidine gluconate 1 Application Topical Daily cloNIDine HCL 0.2 mg Oral Q8H Olvera Care wipe Topical BID isosorbide dinitrate 40 mg Oral Q8H metoprolol tartrate 50 mg Oral BID oseltamivir 30 mg Oral Daily predniSONE 5 mg Oral Daily senna 2 tablet Oral Nightly furosemide 10 mg/hr (02/01/25 0600) acetaminophen, guaiFENesin, ipratropium-albuteroL, phenoL, polyethylene glycol, sodium chloride, sodium chloride, sore throat Objective Last vitals 36 ??C (96.8 ??F) P (!) 42 BP (!) 162/54 RR 20 SpO2 100 % 1 FiO2 30 % 75.9 kg (167 lb 5.3 oz) Objective: Vital signs: (most recent): Blood pressure (!) 162/54, pulse (!) 42, temperature 36 ??C (96.8 ??F),temperature source Tympanic, resp. rate 20, height 172.7 cm (5' 7.99 ), weight 75.9 kg (167 lb 5.3 oz), SpO2 100%. Oral moist mucosa Lungs decreased BSs bilaterally s1s2 abd soft nt +BSs Ext +edema Neuro awake and alert Skin no rash Patient Lines/Drains/Airways Status Active Lines and Drains Name Placement date Placement time Site Days Peripheral IV Left Antecubital 01/29/252038 Antecubital 2 Peripheral IV Anterior;Right Forearm 02/01/25 0001 Forearm less than 1 Urinary Catheter 16 Fr. 01/31/25 1800 -- less than 1 Labs: CBC: Recent Labs 01/30/25 1544 01/31/25 0502/01/25422 WBC 3.85* 3.53* 3.03* HGB 7.8* 8.0* 7.6* HCT 26.9* 27.9* 26.6* PLT 244 230 217 COAGS: Recent Labs 01/29/252009 PT 13.0 BMP: Recent Labs 01/30/25 1544 01/31/2551202/01/25422 NA 140 143 144 K 3.9 4.1 3.5 CL 104 109* 106 CO2 22 22 23 BUN 54* 55* 54* CRE 3.00* 3.20* 3.00* GLU 141* 122* 214* MG 2.1 2.1 2.0 PHOS 4.3 4.2 3.4 CA 8.6 8.8 8.7 LFTs/Chemistries: Recent Labs 01/29/25200401/31/25512 ALB 3.4* 3.0* ALKP 173* 119 TP 7.4 6.5 ALT 37* 30 AST 73* 28 DBILI 0.2 -- TBILI 0.4 0.3 Assessment/Plan Brief Summary: Patient is a 75 y.o. female with a history of CKD stage 4 baseline creatinine 2.6-2.8 mg/dL following with her outpatient user experience designer Dr. London Anaya in [place] [facility], patient known to have longstanding history of hypertensive disease chronic steroid exposure for arthritis CAD status post PCI drug-eluting stent to RCA in the past DVT/PE on apixaban and HFr EF who [place] [facility] for evaluation of increased shortness of breath found in pulmonary edema with acutehypoxic respiratory failure in the emergency room found profoundly hypertensive blood pressure 235/130 started on noninvasive ventilation nitroglycerin drip IV furosemide diuresing along with this order influenza A test was positive initiated on oseltamivir patient was then transferred to ICU whereshe has received a dose of 80 mg IV furosemide 1.2 L of urine output initially, creatinine levels initially found at 3.5 mg/dL today down to 3.3 mg/dL. She reports feeling significantly better, as she remains in JHONY superimposed on CKD a renal consultation has been requested. JHONY superimposed on CKD JHONY likely result of renal hypoperfusion associated with a combination of congestive nephropathy inthe setting of decompensated congestive heart failure/cardiorenal syndrome and uncontrolled malignant hypertension potentially further kidney injury via endothelial injury, doubt other forms of JHONY at the present time fortunately she is responding to diuresis and decongestion 2 L of urine so far, and blood pressure control on nicardipine drip. I doubt presence of systemic glomerular disease, doubt evidence of MAHA as her platelet count is normal, doubt AIN or ATN at the present time. 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 One or more values for this score either were not found within the given timeframe or did not fit some other criterion. Computed KFRE 5-Year unavailable. One or more values for this score either were not found within the given timeframe or did not fit some other criterion. Assessment & Plan Flash pulmonary edema Acute kidney injury superimposed on chronic kidney disease -Continue with diuretic drip furosemide 10 mg/h replete K and mag as needed -Potentially may use distal acting diuretic/metolazone 5 mg p.o. x 1 to further accentuate diuresisas sequential nephron blockade -Vasodilators as per poultry farm supervisor recommendation, may potentially benefit from heart failure program evaluation and mitral valve procedure will defer to poultry farm supervisor expertise. Hopefully able to complete workup for MitraClip intervention - Patient developed hydralazine induced SLE deferred suggest to keep current approach be cautious with combination of beta-nichelle and clonidine, if need be may add nifedipine XL 30 mg daily (which can be uptitrated) -Unfortunately due to JHONY would hold off on GDMT agents -Low threshold to start SGLT2 inhibitor -Trend hemoglobin check iron stores - strict I/Os, daily weights, please avoid nephrotoxins (IV contrast, NSAIDs) - please dose reduce antibiotics/medications as appropriate for eGFR - Patient has established relationship with user experience designer Dr. Anaya in [place], - Patient clearly stated would like to avoid any form of dialysis in the future which she is discussed with her outpatient user experience designer. Hypertensive emergency -Unclear if she shad a Doppler renal artery in the past If she is still in house on Sunday could rule out PATTI while inpatient Acute respiratory failure with hypoxia and hypercapnia History of pulmonary embolism Influenza A * Porter Pacheco RN - 02/01/2025 6:59 AM EST Nursing Progress Note Patient continues on lasix gtt with urine output goal 100ml/hr. Patient alert and oriented x3. Overnight elevated blood pressure managed with oral medications as ordered see MARS. Patsy AGUIRRE jablonski made aware of patient status throughout the shift. Labs resulted and responded to interventions. * Moni Hayward RN - 01/31/2025 6:42 PM EST Nursing Progress Note Patient continues to have elevated BP, managed with oral medications, this afternoon patient with coarse wet cough, IV lasix 40mg given, updraft given, 600cc of urine out for the shift. IV lasix gtt ordered, pending arrival from pharmacy, Olvera cath inserted with 150cc clear urine out. Will titratethe lasix gtt to the output as ordered. * Ruddy Umaña CNP - 01/31/2025 5:22 PM EST [facility] ICU Progress Note 01/31/2025 5:22 PM Patient: Yecenia Gaines Hospital Day: Hospital Day: 3 HOSPITAL COURSE: Yecenia Gaines is a 75-year-old female with [...] initiation of targeted therapy for influenza A. OVERNIGHT EVENTS: Off cardene Edited by: Patsy Sanders PA-C, MPH at 01/31/2025 9809 SUBJECTIVE: Cough persists OBJECTIVE: Last vitals 37.1 ??C (98.8 ??F) P 61 BP (!) 177/66 RR 17 SpO2 98 % 1 FiO2 30 % 74.6 kg (164 lb 7.4 oz) Physical Exam Constitutional: General: She is not in acute distress. Appearance: Normal appearance. She is not ill-appearing or toxic-appearing. HENT: Head: Normocephalic. Mouth/Throat: Mouth: Mucous membranes are moist. Pharynx: No oropharyngeal exudate. Eyes: Conjunctiva/sclera: Conjunctivae normal. Pupils: Pupils are equal, round, and reactive to light. Cardiovascular: Rate and Rhythm: Normal rate. Heart sounds: Murmur heard. Pulmonary: Effort: Pulmonary effort is normal. Breath sounds: Wheezing and rhonchi present. No rales. Abdominal: General: Bowel sounds are normal. Palpations: Abdomen is soft. Musculoskeletal: General: No swelling. Cervical back: Normal range of motion. Skin: General: Skin is warm. Capillary Refill: Capillary refill takes 2 to 3 seconds. Neurological: General: No focal deficit present. Mental Status: She is alert. Psychiatric: Mood and Affect: Mood normal. PERTINENT TEST RESULTS / INTERPRETATION: CBC: 3.53* \ 8.0* / 230 / 27.9* \ 01/31 513 BMP: 143 109* 55* / 122* 4.1 22 3.20* \ 01/31 513 Lab Results Component Value Date MG 2.1 01/31/2025 , Lab Results Component Value Date CA 8.8 01/31/2025 PHOS 4.2 01/31/2025 All other labs have been reviewed. IMPRESSION/PLAN: 75 yo F with history of HFpEF, CKD, DVT/PE on apixaban and arthritis on chronic prednisone who presents to the ED in respiratory distress, fever and hypertension. Found to be positive for influenza Aand flash pulmonary edema. Active Hospital Problems Diagnosis Date Noted Influenza A 01/29/2025 Flash pulmonary edema 06/07/2024 Acute kidney injury superimposed on chronic kidney disease 06/07/2024 Acute respiratory failure with hypoxia and hypercapnia 06/07/2024 Hypertensive emergency 06/07/2024 History of pulmonary embolism 10/19/2016 Quality Clinical Documentation: Hypoalbuminemia . Monitoring . Albumin of 3 on 01/31/2025 NEURO: No acute issues PULMONARY: Influenza A with resultant hypoxic respiratory failure requiring noninvasive ventilatorysupport Complete full course of Tamiflu Likely some component of pulmonary edema continue IV diuresis with 40 mg IVP Lasix today x 1 more dose As needed BiPAP therapy goal SpO2 greater than 95% CARDIO: Hypertensive urgency improved continue usual Catapres, Isordil, Lopressor --IV nicardipine is discontinued Given poor response to diuretics will initiate IV Lasix infusion Appreciate cardiology evaluation for recurrent flash pulmonary edema. Per their review the patient has moderate to severe eccentric mitral regurgitation. Cardiology feels that the patient should undergo diagnostic cardiac catheterization on Sunday along with transesophageal echocardiogram both of wh ich have been requested. Per Dr. Zhu from cardiology the patient likely needs a more urgent evaluation of the mitral valve and consideration for either endovascular or open surgical repair GI: No acute issues n.p.o. Sunday night after night in anticipation of cardiology procedures above : Acute on chronic kidney injury appreciate nephrology consultation and recommendations. Olvera catheter for close monitoring of renal function and urine output with IV Lasix infusion Will initiate Lasix infusion as recommended and gave one-time dose metolazone 5 mg FEN: Trend electrolytes especially serum potassium level while aggressive diuresis is ongoing HEME: Eliquis 2.5 mg twice daily ENDOCRINE: Prednisone 5 mg daily ID: No active issues OTHER: Met with the patient in her room x 35 minutes explained plan Urinary Catheter: plan to continue with catheter for close urine output monitoring DVT Prophylaxis: Apixaban Code Status: Full Code A total of 50 minutes of time was spent directly caring for patient, independent of procedure time. Ruddy Umaña CNP * Jamey Kaplan MD - 01/31/2025 8:12 AM EST Subjective no acute issues overnight per report continues to diurese 2 L last 24 hours blood pressure improving off nicardipine Subjective Medications apixaban 2.5 mg Oral BID chlorhexidine gluconate 1 Application Topical Daily cloNIDine HCL 0.2 mg Oral Q8H [Held by provider] furosemide 40 mg Oral Daily isosorbide dinitrate 30 mg Oral TID metoprolol tartrate 50 mg Oral BID oseltamivir 30 mg Oral Daily predniSONE 5 mg Oral Daily senna 2 tablet Oral Nightly niCARdipine Stopped (01/30/25 1800) acetaminophen, guaiFENesin, phenoL, polyethylene glycol, sodium chloride, sore throat Objective Last vitals 37.6 ??C (99.7 ??F) P (!) 52 BP (!) 150/49 RR 26 SpO2 96 % 1 FiO2 30 % 74.6 kg (164 lb 7.4 oz) Objective: Vital signs: (most recent): Blood pressure (!) 150/49, pulse (!) 52, temperature 37.6 ??C (99.7 ??F), temperature source Tympanic, resp. rate 26, height 172.7 cm (5' 7.99 ), weight 74.6 kg (164 lb 7.4 oz), SpO2 96%. Oral moist mucosa Lungs decreased BSs bilaterally s1s2 Ext +edema Neuro awake and alert Skin no rash Patient Lines/Drains/Airways Status Active Lines and Drains Name Placement date Placement time Site Days Peripheral IV Left Antecubital 01/29/252038 Antecubital 1 Labs: CBC: Recent Labs 01/30/2541601/30/25 1544 01/31/25 0513 WBC 5.20 3.85* 3.53* HGB 7.6* 7.8* 8.0* HCT 26.5* 26.9* 27.9* PLT 229 244 230 COAGS: Recent Labs 01/29/252009 PT 13.0 BMP: Recent Labs 01/30/2541601/30/25 1544 01/31/25 0513 NA 145 140 143 K 4.4 3.9 4.1 CL 109* 104 109* CO2 20 22 22 BUN 58* 54* 55* CRE 3.30* 3.00* 3.20* GLU 120* 141* 122* MG 2.1 2.1 2.1 PHOS 5.7* 4.3 4.2 CA 8.7 8.6 8.8 LFTs/Chemistries: Recent Labs 01/29/25200401/31/25 0513 ALB 3.4* 3.0* ALKP 173* 119 TP 7.4 6.5 ALT 37* 30 AST 73* 28 DBILI 0.2 -- TBILI 0.4 0.3 Assessment/Plan Brief Summary: Patient is a 75 y.o. female with a history of CKD stage 4 baseline creatinine 2.6-2.8 mg/dL following with her outpatient user experience designer Dr. London Anaya in [facility], patient known to have longstanding history of hypertensive disease chronic steroid exposure for arthritis CAD status post PCI drug-eluting stent to RCA in the past DVT/PE on apixaban and HFr EF who [place] hospital for evaluation of increased shortness of breath found in pulmonary edema with acutehypoxic respiratory failure in the emergency room found profoundly hypertensive blood pressure 235/130 started on noninvasive ventilation nitroglycerin drip IV furosemide diuresing along with this order influenza A test was positive initiated on oseltamivir patient was then transferred to ICU whereshe has received a dose of 80 mg IV furosemide 1.2 L of urine output initially, creatinine levels initially found at 3.5 mg/dL today down to 3.3 mg/dL. She reports feeling significantly better, as she remains in JHONY superimposed on CKD a renal consultation has been requested. JHONY superimposed on CKD JHONY likely result of renal hypoperfusion associated with a combination of congestive nephropathy inthe setting of decompensated congestive heart failure/cardiorenal syndrome and uncontrolled malignant hypertension potentially further kidney injury via endothelial injury, doubt other forms of JHONY at the present time fortunately she is responding to diuresis and decongestion 2 L of urine so far, and blood pressure control on nicardipine drip. I doubt presence of systemic glomerular disease, doubt evidence of MAHA as her platelet count is normal, doubt AIN or ATN at the present time. 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 One or more values for this score either were not found within the given timeframe or did not fit some other criterion. Computed KFRE 5-Year unavailable. One or more values for this score either were not found within the given timeframe or did not fit some other criterion. Assessment & Plan Flash pulmonary edema Acute kidney injury superimposed on chronic kidney disease -Continue to diurese, If suboptimal response suggest to start a diuretic drip furosemide 10 mg/h -Potentially may use distal acting diuretic/metolazone 5 mg p.o. x 1 to further accentuate diuresisas sequential nephron blockade -Vasodilators as per poultry farm supervisor recommendation, may potentially benefit from heart failure program evaluation and mitral valve procedure will defer to poultry farm supervisor expertise. -Unfortunately due to JHONY would hold off on GDMT agents -Low threshold to start SGLT2 inhibitor -Trend hemoglobin check iron stores - strict I/Os, daily weights, please avoid nephrotoxins (IV contrast, NSAIDs) - please dose reduce antibiotics/medications as appropriate for eGFR - Patient has established relationship with user experience designer Dr. Anaya in [place], - Patient clearly stated would like to avoid any form of dialysis in the future which she is discussed with her outpatient user experience designer. Hypertensive emergency -Unclear if she shad a Doppler renal artery in the past If she is still in house on Sunday could rule out PATTI while inpatient -Patient developed hydralazine induced SLE deferred suggest to keep current approach be cautious with combination of beta-nichelle and clonidine, if need be may add nifedipine XL 30 mg daily (which can be uptitrated) Acute respiratory failure with hypoxia and hypercapnia History of pulmonary embolism Influenza A * Kelsey Bentley, RN - 01/30/2025 6:23 PM EST Nursing Progress Note Pt with htn much of the day. Nitroglycerine changed to Nicardipine this afternoon and then increased dose of clonidine administered. Nicardipine now off. Pt able to sit up in recliner chair this evening. Breathing comfortably but has a congested cough and runny nose. New HCP competed at pt request this evening. * Krissy Melara RN - 01/30/2025 4:57 PM EST Case Management - Admission Note 01/30/25 1600 High Risk Screen Source of information Patient; Medical record High Risk Screen CHF; Chronic illness; Home Care Patient Information Home Caregiver Self Support Systems Family members; Friends/neighbors Psychosocial Lives With Self/alone Transportation Drives own car Provides Care For Pet(s) Type of Residence Independent housing Prior or Current Services Skilled home health services Type of Skilled HH Nursing [facility] active on admission Yes SOCIAL SECURITY BENEFITS INTERVIEWER Functional Status Stairs to Enter Home 0 Stairs Inside Home 0 Home Equipment Walker Prior Dressing Lower Body Level of Assistance Independent Prior Grooming Level of Assistance Independent Prior Self Feeding Level of Assistance Independent Prior Bathing/Showering Assistance Independent Prior Toileting Hygiene Level of Assistance Independent Prior Toileting Clothing Management Level of Assistance Independent Bowel Control Continent Prior Bed Mobility Level of Assistance Independent First Surface to Surface Level of Assistance Independent Financial Information Insurance verified Yes Prescription benefits Yes Afford co-pays Yes Legal Information Advance Care Planning reviewed Yes Does patient have a Health Care Proxy form completed? Electronic copy of HCP available Discharge Planning Patient/Family/Caregiver discharge preference/goals Home with services Anticipated discharge disposition Home with services Next Actions Assessment/High Risk Screening Complete Case Management Note: READMISSION Communication Summary: CM met with pt at bedside to explain role, GERRY and confirm demographics. Pt completed an updated HCP with CM and was given original. Pt is a readmission to [facility] and is in the ICU with Flu A and is being diuresed. CM will continue to follow for D/C planning. Pt newly admitted to [facility] but has not had SOC yet. See 4Next. The [place] was [place] [facility] [place] and they are readmitted within 30 days. I have reviewed the recent Initial Assessment with the patient and/or circulation sales representative. This information is current and has been updated to reflect any applicable changes. HCP Confirmed: Advance Care Planning reviewed: (P) Yes Does patient have a Health Care Proxy form completed?: (P) Electronic copy of HCP available Payor Info: Payor: [employer] / Plan: [employer] MEDICARE REPLACEMENT / Product Type: Medicare / Expected Discharge Date: TB Patient Language: [place] [facility] [place] [place], [facility] Medicare Preferred): No ICMP Community Outreach Advocate if applicable: No care steamfitter apprentice to display Does the patient have a rn managed care, rn long term care, foster care social worker, vice president of news, or wellness nurse? (such as assigned from an insurer/payor, an [facility] or extended care facility, or an alternative residence type)? N/A If yes, provide name, agency, and contact phone number: Barriers to the success of the prior discharge include: (check and comment on all that apply) Given the patient's need for a re-admission within 30 days from a [facility] stay, the patient is now identified as a high-risk patient. Case Management will continue to follow with the treatment team throughout the course of stay and will remain available as a resource for any case management- related issues. Krissy Melara RN * Brynn Keller MD - 01/30/2025 4:25 PM EST [facility] ICU Progress Note 01/30/2025 Patient: Yecenia Gaines Hospital Day: Hospital Day: 2 Hospital course: Yecenia Gaines is a 75-year-old female with [...] initiation of targeted therapy for influenza A. 24 HOUR EVENTS: New admission for flash pulmonary edema and influenza. Responded well to nitro infusion and BiPAP, weaned to 2L NC. Restarted on BiPAP this morning, nitro restarted for SBP >190. Diuresing Edited by: Daysi Mckenzie PA-C at 01/30/2025 0642 SUBJECTIVE: Feeling better though still short of breath. OBJECTIVE: Last vitals 37.4 ??C (99.3 ??F) P 86 BP (!) 164/68 RR 21 SpO2 98 % 1 FiO2 30 % 75.2 kg (165 lb 12.6 oz) Intake/Output Summary (Last 24 hours) at 01/30/2025 1634 Last data filed at 01/30/2025 1600 Gross per 24 hour Intake 986.55 ml Output 2025 ml Net -1038.45 ml Physical Exam: General: Acutely ill appearing female in no acute distress. HEENT: The nasal mucosa is pink, Teeth and gums are normal, Oropharynx is normal. Neck: She is without thyromegaly, masses, or JVD. There is no palpable cervical, supraclavicular adenopathy. Cardiovascular: Regular rate, S1, S2 normal., No murmur. Chest:crackles bilateral bases Abdomen: Soft, NT, ND. Good bowel sounds. No hepatosplenomegaly. Extremity: There is no peripheral clubbing or cyanosis., Some edema. Skin: The skin is intact, with no rashes, lesions or ulcers. Neuro: Alert and oriented x3 , baseline strength and gait. PERTINENT TEST RESULTS / INTERPRETATION: CBC: 5.20 \ 7.6* / 229 / 26.5* \ 01/30 417 BMP: 145 109* 58* / 120* 4.4 20 3.30* \ 01/30 417 Lab Results Component Value Date MG 2.1 01/30/2025 , Lab Results Component Value Date CA 8.7 01/30/2025 PHOS 5.7 (H) 01/30/2025 All other labs have been reviewed. Imaging: XR Chest Portable [[id number]] 01/29/2025 (Final) Narrative XR CHEST PORTABLE Referring clinician's provided indication for this examination in [facility]: Shortness of breath COMPARISON: XR CHEST PORTABLE FINDINGS: Devices/Tubes/Lines: None. Lungs: Pulmonary vascular engorgement, diffuse interstitial opacities with Sree B-lines, and perihilar haziness with lower lung predominance. Right lower lobe subsegmental atelectasis. Pleura: Small bilateral pleural effusions. No pneumothorax. Heart/Mediastinum: Unchanged cardiomegaly. Atheromatous aorta. Bones/Soft Tissues: No significant abnormality. Impression Moderate pulmonary edema and small pleural effusions. Signed by: Adalgisa Noyola MD on 01/29/2025 11:30 PM No results found for this or any previous visit from the past 182 days 15 hours. Adult Echo TTE [[id number]] 12/30/2024 (Final) Interpretation Summary Images from the original result were not [...] be more severe. LV function this similar. Signed by: Carlo Dawn MD on 12/30/2024 10:25 AM XR Chest Portable Final Result Moderate pulmonary edema and small pleural effusions. Bedside Ultrasound Final Result IMPRESSION/PLAN: 75 yo F with history of HFpEF, CKD, DVT/PE on apixaban and arthritis on chronic prednisone who presents to the ED in respiratory distress, fever and hypertension. Found to be positive for influenza Aand flash pulmonary edema. Active Hospital Problems Diagnosis Date Noted Influenza A 01/29/2025 Flash pulmonary edema 06/07/2024 Acute kidney injury superimposed on chronic kidney disease 06/07/2024 Acute respiratory failure with hypoxia and hypercapnia 06/07/2024 Hypertensive emergency 06/07/2024 History of pulmonary embolism 10/19/2016 NEURO Lots of stress from trying to get help at home and changing her insurance. Will ask case managementand social work to assist. PT/OT Consult PULMONARY: Influenza A. Cont O2, bronchodilators PRN. BiPAP PRN SPO2 goal greater than 88% Vent Mode: NIV - ST FiO2 (%): [30 %] 30 % S RR: [12] 12 Respiratory Rate: [14-35] 21 SpO2: [89 %-100 %] 98 % O2 Device: None (Room air) O2 Flow Rate (L/min): [1-2] 1 No results for input(s): APH , APCO2 , APO2 , ABASED in the last 72 hours. CARDIO: Switch to nicardapine. Will increase clonidine. Cardiology consult appreciated. Consider transfer to [facility] for Cath and consideration for mitralvalve clip. MAP goal 65 mmHg HR: [63-151] 86 BP: (129-239)/(60-152) 164/68 No results for input(s): TROPT in the last 72 hours. GI: Diet Regular Recent Labs 01/29/252004 ALKP 173* TBILI 0.4 DBILI 0.2 ALB 3.4* TP 7.4 : Acute on chronic renal failure. Monitor closely. Will consult nephrology Urine output goal greater than 30 ml per hour Electrolyte correction as needed, goal potassium of 4.0, magnesium of 2.0, phosphorus of 4 Recent Labs 01/29/25200401/30/25416 NA 144 145 K 4.3 4.4 CL 107 109* CO2 19* 20 BUN 56* 58* CRE 3.50* 3.30* GLU 192* 120* MG -- 2.1 PHOS -- 5.7* CA 9.4 8.7 HEME: Monitor H/H. Patient is not in favor of a blood transfusion however. Anticoagulation with apixaban. Recent Labs 01/29/25200401/30/25416 HGB 9.0* 7.6* HCT 32.8* 26.5* PLT 320 229 MCV 101.2* 98.9 Recent Labs 01/29/252009 PT 13.0 ID: On Tamiflu MRSA screen Recent Labs 01/30/252 MRSADNA Negative for MRSA Temp: [36.6 ??C (97.9 ??F)-39.5 ??C (103.1 ??F)] 37.4 ??C (99.3 ??F) No Procalcitonin in last 30 days. Recent Labs 01/29/25200401/30/25 0417 WBC 7.99 5.20 OTHER: Patient spent much of her life homeless after getting a master's degree. Found it difficult to get a job as a black woman in [facility]. Now has housing after living with her mother duringher final months and now in an apartment complex. Has a son who lives in [place] but doesn't getto come visit much. Might benefit from some elder care services, if available to her. Quality Clinical Documentation: Hyperphosphatemia (Present on Admission) . Monitoring . Phosphorus of 5.7 on 01/30/2025 Acute systolic heart failure (Present on Admission) . Treating . Received IV diuretics on 01/30/2025 Urinary Catheter: none Code status: Full Code DVT Prophylaxis: N/A - pt is anticoagulated Extended Emergency Contact Information Primary Emergency Contact: Sree Goldberg Mobile Relation: Friend Patient remains critically ill with hypoxic resp failure. Patient has a high liklihood of life-threatening deterioration without our interventions. A total of 90 minutes of critical care time were spent directly evaluating and managing this critically ill patient. This includes time examining the patient, reviewing laboratory and radiographic studies and making management decisions. This also includes time coordinating case with specialists and reviewing data and plan with nursing, pharmacy, respiratory services and the rest of the critical care team. This does not include procedures that are otherwise billable. Brynn Keller MD * Lorelei Corey - 01/30/2025 11:27 AM EST Spiritual Care Services Note Spiritual Care Summary Pt expresses her lamentations rooted on feeling not seen/heard by a society's systems that exclude.Pt was calmer at the end of this visit, having benefited from spiritual presence. Pt was redirectedto good effect, spoke about her mother's in August 2024 and the of her sister in 2019. Ptidentifies her late relatives as the only ones who loved her best. 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 Pt spoke at length about her latemother's EOL, her own caregiver's stressors and ability to reconcile their different personalities.The of her sister is perceived as unexpected. Be that as it may, pt is able to integrate her relatives' wisdom into her self-understanding. 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 Pt addresses her mother when she prays and believes she has a guardian wilberto that has helped her remain safe. Pt infor ms her son has recently reestablished contact with her, after a 2 year hiatus. Pt welcomes ongoing spiritual support while hospitalized. Reason for Visit: Reason for Consult / Visit: (P) Spiritual Support Consult Source - Referral: (P) Physician Spiritual Assessment Orthodoxy/Spirituality: Patient Only: Orthodoxy/Spirituality: (P) Spiritual (not temple) Brynn Spirituality Importance: (P) High Relationship between Illness and Brynn/Spirituality: (P) Brynn/Spirituality is a resource Taoist/ Spiritual Coping Skills: (P) Strong Support Systems/Spiritual Resources: (P) Higher power, Pets Spiritual Needs: (P) Reflective listening Spiritual Issues: (P) Comfort Care Interventions: Interventions Provided: (P) Reflective listening, chart reviewed, spiritual needs/strengths assessed, offered reassurance, validated feelings Outcomes: Patient Outcomes: (P) Wellbeing - Expresses being at peace, Validation - Expresses being seen, heard, valued or feeling understood Plan: Follow up with Spiritual care: (P) Yes Plan: (P) Continued spiritual support Signature Lorelei Corey * Jeannette Hernandez RRT - 01/30/2025 5:07 AM EST Respiratory Therapy Pt on bipap until about 0030, placed back on at 0430. Tolerating well * Jeannette Hernandez RRT - 01/29/2025 11:05 PM EST Respiratory Therapy Pt arrives to CCU on bipap 14/30% * Kelly Mcduffie RRT - 01/29/2025 8:30 PM EST Respiratory Therapy NIV/CPAP Note Dressing Applied to Bridge of Nose: Skin Check: Intact Was Mask Repositioned During Shift: Yes Patient Settings and Shift Note: RT called to ER stat for patient arriving by EMS on CPAP. She was placed on Bipap with charted settings and tolerating well after reassurance. Oxygen weaned to 30%, resp rate still in high 30's, however states her breathing feels better. 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 ascorbic uigp-xavgqyzt-abl (VITAMIN C ENERGY BOOSTER) 1,000 mg PwEP [...] trying to get an appointment with a pile driver operator barge mounted for further guidance, but has notbeen able [...] positive Images: Images Saved: Yes Accession Number: [id number] documented in this encounter Consult Notes * Kayleigh Dumont LCSW - 02/04/2025 10:43 AM ESTAssociated Order(s): IP CONSULT TO SOCIAL WORK Case conference with RN LEATHA who reported patient is being discharged with VNA services and no need for SW intervention. * Carlo Dawn MD - 02/02/2025 8:24 AM EST NEW PATIENT EVALUATION: DATE: 02/02/2025 PRIMARY CARE PHYSICIAN: Baldomero Roy PA PRIMARY TRANSIT AUTHORITY POLICE OFFICER: REFERRING PHYSICIAN: No ref. provider found S: 75-year-old woman who has a low normal LV function EF 45 to 50% moderate to severe eccentric mitralregurgitation, coronary artery disease with prior stent to the RCA, DVT PE on Eliquis renal diseaseon chronic prednisone for arthritis came in with respiratory distress flash pulmonary edema. Severely hypertensive also has influenza. Had EKG changes but troponins were flat. She is being worked up for some sort of mitral valve repair. Has influenza A infection. She is doing okay she has a cough and shortness of breath her breathing is better her lower extremity edema is better she has had good diuresis. She was quite hypertensive when she came in and her blood pressure still moderately elevated. Her EKGs had dramatic T wave inversions on the last EKG she did not come in with those. Her troponins were flat however her proBNP was very elevated. She is still on Eliquis today. She has known mitral regurgitation was being worked up for mitral valve clip. Vitals reviewed blood pressure 166/70 heart rate 73 Labs creatinine very abnormal BUN 59 creatinine 3.2 potassium 4.2 Troponins were flat in the 50s, proBNP 35,000 Echocardiogram December 2024 showed EF 45 to 50% moderate to severe mitral regurgitation PA pressure estimation mildly elevated. Medications here Eliquis 2.5 twice daily clonidine 0.2 Q8 isosorbide 40 Q8 metoprolol 50 twice daily nifedipine 30 mg daily prednisone Tamiflu. Looks like she was on Lasix drip but this was held. EKG shows very deep T wave inversions across the anterior precordial leads. This is a change from January 29. PAST MEDICAL HISTORY: Patient Active Problem List Diagnosis CHF exacerbation Symptomatic anemia Acute kidney injury superimposed on chronic kidney disease Hypertensive emergency Flash pulmonary edema Osteoarthritis of right knee Acute respiratory failure with hypoxia and hypercapnia Pulmonary edema Respiratory distress Hypertensive urgency History of pulmonary embolism Influenza A Past Medical History: Diagnosis Date Anemia Congestive heart failure Hypertensive disorder Osteoarthritis Bilateral knees right greater than left, and ankles and wrists uri ST elevation (STEMI) myocardial infarction 2019 Social History Socioeconomic History Marital status: Single [...] Drivers of Health Residential Stability: Low Risk (12/29/2024) Residential Stability Family situation today data: I have housing Number of times moved in last year: Zero (I did not move) History reviewed. No pertinent family history. @MEDENC@ Allergies Allergen Reactions Allerg Xt,D.Farinae-D.Pteronys Codeine Unknown Nsaids (Non-Steroidal Anti-Inflammatory Drug) Unknown and Other (See Comments) Hydralazine Erythema Drug induced lupus REVIEW OF SYSTEMS: A complete 12 point review of systems was perfprmed, as per HPI, otherwise negative unless otherwise specified. PHYSICAL EXAMINATION: Vital Signs: Vitals: 02/01/25 2205 02/01/25 2357 02/02/25 0448 02/02/25 0600 BP: (!) 143/61 (!) 142/69 (!) 166/70 Pulse: Resp: Temp: 36.6 ??C (97.9 ??F) 36.5 ??C (97.7 ??F) TempSrc: Tympanic Tympanic SpO2: Weight: 69.9 kg (154 lb 1.6 oz) Height: Body mass index is 23.44 kg/m??. General appearance: No acute distress HEENT: head is normo-cephalic and atraumatic. Pupils are equal. Neck: supple, No elevation of jugular venous pressure. Carotid pulses are 2+ bilaterally, no cervical bruits with auscultation Cardiac: PMI not displaced, rate and rhythm are regular, normal S1 and S2, no gallops, no pathological murmurs. Lungs: clear to auscultation bilaterally with no wheezing or crackles. Abdomen: Soft, non-tender, non-distended, active bowel sounds, no abdominal bruit. Neuro: alert and appropriate in conversation. CN 3-12 grossly intact. Intact strength and sensation in bilateral upper and lower extremities. Extremities: warm with no edema. Skin: no color change, poor wound healing, rash or suspicious lesions DIAGNOSTICS: ELECTROCARDIOGRAM: @TODAYEKG@ LABORATORY DATA: No results found for: CHOL No results found for: HDL No results found for: LDLCALC No results found for: TRIG No results found for: CHOLHDL WBC Date Value Ref Range Status 02/02/2025 3.00 (L) 4.00 - 11.00 K/uL Final Hemoglobin Date Value Ref Range Status 02/02/2025 8.4 (L) 12.0 - 16.0 g/dL Final Hematocrit Date Value Ref Range Status 02/02/2025 29.1 (L) 36.0 - 46.0 % Final Lab Results Component Value Date NA 140 02/02/2025 K 4.2 02/02/2025 CL 103 02/02/2025 CO2 24 02/02/2025 BUN 59 (H) 02/02/2025 CRE 3.20 (H) 02/02/2025 GLU 125 (H) 02/02/2025 CA 9.2 02/02/2025 GFR 15 (L) 02/02/2025 ANION 13 02/02/2025 ASSESSMENT/PLAN : 1 congestive heart failure She has mild cardiomyopathy but also has significant T wave inversions as well as mitral regurgitation. I like to continue to optimize her heart failure. She is doing much better and is more euvolemic. We can likely transition her back to p.o. diuretics. I would like to keep her blood pressure lower. Continue current meds for now. Lets add Jardiance 10 mg daily if her blood pressure remains high we can titrate her blood pressure meds. Avoid nephrotoxic agents. Will see what her pressures are onher right and left heart catheterization which is scheduled for tomorrow. 2 mitral regurgitation. She has moderate to severe mitral digitation. We will evaluate this further this admission. Will set up a transesophageal echocardiogram and a right and left heart catheterization tomorrow. I may refer her to Dr. Sumner for workup of possible mitral valve clip. 3 DVT Continue Eliquis it will be held for sure cath tomorrow 4 renal insufficiency Continue to monitor this. Avoid nephrotoxic agents. 5 coronary disease She has a history of coronary artery disease with prior stent to her RCA. Prior to workup for mitral valve clip and because of T wave inversions will perform a cardiac catheterization. Tomorrow. Electronically signed by: CARLO DAWN MD 02/02/2025 8:24 AM * Kathy Richards LDN - 02/01/2025 1:31 PM EST Brief [facility] Clinical Nutrition Note Reason for RD visit: CCU level of care Impression 75 yo F with history of HFpEF, CKD, DVT/PE on apixaban and arthritis on chronic prednisone who presents to the ED in respiratory distress, fever and hypertension. Found to be positive for influenza Aand flash pulmonary edema. 02/01 - Pt known to nutrition from prior admissions, most recently seen last month at which time she received extensive education on diet recommendations for CHF/CKD. Met with Yecenia at bedside, she reports a fair appetite, but mostly related to not liking the food. 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 Declines offer to review any diet recommendations provided at last admission, feels that she has good understanding of what how she needs to eat. Took food preferences and provided menu. 144 106 54* / 214* 3.5 23 3.00* \ 02/01 0423 Phos 3.4 Current Diet Order: Diet Regular Diet NPO Except; Medications. Food Allergies: Allergen Reactions Allerg Xt,D.Farinae-D.Pteronys Codeine Unknown Nsaids (Non-Steroidal Anti-Inflammatory Drug) Unknown and Other (See Comments) Hydralazine Erythema Drug induced lupus ?? Interventions >Provided pt with diet office number and menu. Will make sure pt is visited daily for preferences. Recommendations Will monitor per policy time frame and risk protocol. Date 02/01/2025 Time 1:31 PM Signature MAURA Toribio * Jamey Kaplan MD - 01/30/2025 5:02 PM ESTAssociated Order(s): IP CONSULT TO NEPHROLOGY [facility] Nephrology Consult Note Patient: Yecenia Gaines Admit Date: 01/29/2025 Date of Consult: 01/30/2025 Reason for Consult: JHONY superimposed on CKD evaluation. HPI: 75 y.o. female with a history of CKD stage 4 baseline creatinine 2.6-2.8 mg/dL following with her outpatient user experience designer Dr. London Anaya in [facility], patient known to have longstanding history of hypertensive disease chronic steroid exposure for arthritis CAD status post PCIdrug-eluting stent to RCA in the past DVT/PE on apixaban and HFr EF who came to the hospital for evaluation of increased shortness of breath found in pulmonary edema with acute hypoxic respiratory failure in the emergency room found profoundly hypertensive blood pressure 235/130 started on noninvasive ventilation nitroglycerin drip IV furosemide diuresing along with this order influenza A test was positive initiated on oseltamivir patient was then transferred to ICU where she has received a dose of 80 mg IV furosemide 1.2 L of urine output initially, creatinine levels initially found at 3.5 mg/dL today down to 3.3 mg/dL. She reports feeling significantly better, as she remains in JHONY superim posed on CKD a renal consultation has been requested. ROS: Was reviewed in 12 points and is otherwise negative except as noted in the HPI. Past Medical History: Diagnosis Date Anemia Congestive heart failure Hypertensive disorder Osteoarthritis Bilateral knees right greater than left, and ankles and wrists uri ST elevation (STEMI) myocardial infarction 2019 Patient Active Problem List Diagnosis CHF exacerbation Symptomatic anemia Acute kidney injury superimposed on chronic kidney disease Hypertensive emergency Flash pulmonary edema Osteoarthritis of right knee Acute respiratory failure with hypoxia and hypercapnia Pulmonary edema Respiratory distress Hypertensive urgency History of pulmonary embolism Influenza A History reviewed. No pertinent family history. Social History Socioeconomic History Marital status: Single [...] Drivers of Health Residential Stability: Low Risk (12/29/2024) Residential Stability Family situation today data: I have housing Number of times moved in last year: Zero (I did not move) Allergies Allergen Reactions Allerg Xt,D.Farinae-D.Pteronys Codeine Unknown Nsaids (Non-Steroidal Anti-Inflammatory Drug) Unknown and Other (See Comments) Hydralazine Erythema Drug induced lupus Facility-Administered Medications as of 01/30/2025 Medication Dose Route Frequency [COMPLETED] acetaminophen (TYLENOL) suppository 650 mg 650 mg Rectal Once acetaminophen (TYLENOL) tablet 650 mg 650 mg Oral Q6H PRN apixaban (ELIQUIS) tablet 2.5 mg 2.5 mg Oral BID chlorhexidine gluconate 2 % wipe 1 each 1 Application Topical Daily cloNIDine HCL (CATAPRES) tablet 0.2 mg 0.2 mg Oral Q8H [COMPLETED] furosemide (LASIX) injection 80 mg 80 mg Intravenous Once [Held by provider] furosemide (LASIX) tablet 40 mg 40 mg Oral Daily guaiFENesin (ROBITUSSIN) 100 mg/5 mL syrup 400 mg 400 mg Oral Q6H PRN isosorbide dinitrate (ISORDIL) IMMEDIATE release tablet 30 mg 30 mg Oral TID metoprolol tartrate (LOPRESSOR) IMMEDIATE release tablet 50 mg 50 mg Oral BID niCARdipine (CARDENE IV) infusion premix 0-15 mg/hr Intravenous Continuous oseltamivir (TAMIFLU) capsule 30 mg 30 mg Oral Daily phenoL (CHLORASEPTIC) 1.4 % mouth spray 1 spray 1 spray Mouth/Throat Q2H PRN [COMPLETED] piperacillin-tazobactam (ZOSYN) 4.5 g in sodium chloride 0.9% 100 mL IVPB-MBP 4.5 g Intravenous Once polyethylene glycol packet 17 g Oral Daily PRN predniSONE (DELTASONE) tablet 5 mg 5 mg Oral Daily senna (SENOKOT) tablet 2 tablet 2 tablet Oral Nightly sodium chloride (NS) 0.9 % syringe flush 3 mL 3 mL Intravenous PRN sore throat (CEPACOL) lozenge 1 lozenge 1 lozenge Mouth/Throat TID PRN Outpatient Medications as of 01/30/2025 Medication apixaban (ELIQUIS) 2.5 mg ascorbic bjyo-gchksmgs-jmf (VITAMIN C ENERGY BOOSTER) 1,000 mg PwEP cloNIDine HCL (CATAPRES) 0.1 MG tablet furosemide (LASIX) 40 MG tablet isosorbide dinitrate (ISORDIL) 30 MG immediate release tablet magnesium oxide 200 mg magnesium Chew metoprolol tartrate (LOPRESSOR) 50 MG tablet predniSONE (DELTASONE) 5 MG tablet vitamin B complex-folic acid (B COMPLEX 1, WITH FOLIC ACID,) 0.4 mg Tab hydrALAZINE (APRESOLINE) 10 MG tablet oxyCODONE 5 MG immediate release tablet Physical Exam: Temperature: [36.6 ??C (97.9 ??F)-39.5 ??C (103.1 ??F)] 37.4 ??C (99.3 ??F) Heart Rate: [63-151] 72 Respiratory Rate: [14-35] 22 BP: (129-239)/(60-152) 156/70 FiO2 (%): [30 %] 30 % Wt Readings from Last 3 Encounters: 01/29/25 75.2 kg (165 lb 12.6 oz) 01/02/25 75.5 kg (166 lb 6.4 oz) 06/11/24 75.3 kg (165 lb 14.4 oz) I/O last 3 completed shifts: In: 961.6 [P.O.:480; I.V.:381.6; IV Piggyback:100] Out: 1575 [Urine:1575] I/O this shift: In: 25 [I.V.:25] Out: 450 [Urine:450] Gen: Very pleasant elderly female in NAD, non-toxic appearing, awake, alert, conversant HEENT: MMM, OP clear without lesions or exudate. Eyes: Anicteric, conjunctivae clear Neck: Supple CV: Regular rhythm, S1 S2, +JUSTIN 3/6 LSB Chest: Rales at the bases bilaterally Abd: Soft, non-tender, non-distended. Unable to appreciate liver edge. No rebound or guarding. Ext: WWP, no c/c/e Skin: No rashes noted on observed skin Neuro: Alert Bilateral UE/LE grossly intact motor/sensory, moving all extremities Psych: Normal affect Laboratory: Results from last 7 days Lab Units 01/30/25 0417 01/29/252004 SODIUM mmol/L 145 144 POTASSIUM mmol/L 4.4 4.3 CHLORIDE mmol/L 109* 107 CARBON DIOXIDE mmol/L 20 19* BUN mg/dL 58* 56* CREATININE mg/dL 3.30* 3.50* CALCIUM mg/dL 8.7 9.4 GLUCOSE mg/dL 120* 192* ALBUMIN g/dL -- 3.4* GFR (ESTIMATED) mL/min/1.73m2 14* 13* PHOSPHORUS mg/dL 5.7* -- Results from last 7 days Lab Units 01/30/25 1544 01/30/25 0417 01/29/252004 WBC K/uL 3.85* 5.20 7.99 HGB g/dL 7.8* 7.6* 9.0* HCT % 26.9* 26.5* 32.8* PLT K/uL 244 229 320 No results found for: AMY , TUNA , UUNA , UK , TUK , UCL , TUCL , TUCL2 , UUCL , MICROALBUR , TUP , UP , UUP , UCRE , UUCRE , CRCL , UOSM , UUOSM Lab Results Component Value Date UACOLOR Yellow 01/29/2025 UATURB Clear 01/29/2025 UAGLUC Negative 01/29/2025 UABILI Negative 01/29/2025 UAKET Negative 01/29/2025 UASPGR 1.020 01/29/2025 UABLD 1+ (*) 01/29/2025 UAPH 6.0 01/29/2025 UAUROBI Negative 01/29/2025 UANIT Negative 01/29/2025 UASWBC 0-2 01/29/2025 UASRBC 0-2 01/29/2025 UASBACT Trace (*) 06/08/2024 UASSQUA 3-5 (*) 01/29/2025 Chemistries Lab Results Component Value Date NA 145 01/30/2025 K 4.4 01/30/2025 K 4.3 01/29/2025 K 4.1 01/02/2025 CL 109 (H) 01/30/2025 CO2 20 01/30/2025 ALB 3.4 (L) 01/29/2025 ALB 3.4 (L) 01/02/2025 ALB 3.0 (L) 12/30/2024 CBC: Lab Results Component Value Date WBC 3.85 (L) 01/30/2025 HGB 7.8 (L) 01/30/2025 HGB 7.6 (L) 01/30/2025 HGB 9.0 (L) 01/29/2025 PLT 244 01/30/2025 Anemia eval: Lab Results Component Value Date TIBC 233 06/08/2024 NATALY 560 (H) 06/08/2024 FE 23 (L) 06/08/2024 B12 >2000 (H) 06/08/2024 FOLATE 12.3 06/08/2024 Renal Function Lab Results Component Value Date BUN 58 (H) 01/30/2025 BUN 56 (H) 01/29/2025 BUN 48 (H) 01/02/2025 CRE 3.30 (H) 01/30/2025 CRE 3.50 (H) 01/29/2025 CRE 3.20 (H) 01/02/2025 GFR 14 (L) 01/30/2025 GFR 13 (L) 01/29/2025 GFR 15 (L) 01/02/2025 No results found for: UTP , GRMALB , UCRE , MALBCRE No results found for: UCRE , TUCRE , UTP , UUTP , UUN , TUN2 , UTIME , UTVOL Renal osteo eval: Lab Results Component Value Date CA 8.7 01/30/2025 CA 9.4 01/29/2025 CA 9.5 01/02/2025 PHOS 5.7 (H) 01/30/2025 PHOS 4.2 12/31/2024 PHOS 4.7 (H) 12/30/2024 UA: Lab Results Component Value Date UAGLUC Negative 01/29/2025 UASPGR 1.020 01/29/2025 UABLD 1+ (*) 01/29/2025 UAPH 6.0 01/29/2025 UANIT Negative 01/29/2025 UASWBC 0-2 01/29/2025 UASRBC 0-2 01/29/2025 UASBACT Trace (*) 06/08/2024 Serologies: Lab Results Component Value Date GHBA1C 6.1 (H) 12/31/2024 Lab Results Component Value Date TP 7.4 01/29/2025 No results found for: HBSAG , HBSAB , HBSABT , HCVAB No results found for: C3 , C4 , ONELIA , RHF LFTs: Lab Results Component Value Date SGOT 11 06/08/2024 SGPT 10 06/08/2024 TBILI 0.4 01/29/2025 DBILI 0.2 01/29/2025 ALKP 173 (H) 01/29/2025 Coags: No results found for: INR , PTT Lipids: No results found for: CHOL , HDL , LDL , LDLHDLRAT , TRIG Assessment:: 75 y.o. female with a history of CKD stage 4 baseline creatinine 2.6-2.8 mg/dL following with her outpatient user experience designer Dr. London Anaya in [place] [facility], patient known to have longstanding history of hypertensive disease chronic steroid exposure for arthritis CAD status post PCI drug-eluting stent to RCA in the past DVT/PE on apixaban and HFr EF who came to the hospital for evaluation of increased shortness of breath found in pulmonary edema with acute hypoxic respiratory failure in the emergency room found profoundly hypertensive blood pressure 235/130 started on noninvasive ventilation nitroglycerin drip IV furosemide diuresing along with this order influenza Atest was positive initiated on oseltamivir patient was then transferred to ICU where she has received a dose of 80 mg IV furosemide 1.2 L of urine output initially, creatinine levels initially found at 3.5 mg/dL today down to 3.3 mg/dL. She reports feeling significantly better, as she remains in JHONY superimposed on CKD a renal consultation has been requested. JHONY superimposed on CKD JHONY likely result of renal hypoperfusion associated with a combination of congestive nephropathy inthe setting of decompensated congestive heart failure/cardiorenal syndrome and uncontrolled malignant hypertension potentially further kidney injury via endothelial injury, doubt other forms of JHONY at the present time fortunately she is responding to diuresis and decongestion 2 L of urine so far, and blood pressure control on nicardipine drip. I doubt presence of systemic glomerular disease, doubt evidence of MAHA as her platelet count is normal, doubt AIN or ATN at the present time. 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 x 1 to further accentuate diuresisas sequential nephron blockade -Vasodilators as per poultry farm supervisor recommendation, may potentially benefit from heart failure program evaluation and mitral valve procedure will defer to poultry farm supervisor expertise. -Unfortunately due to JHONY would hold off on GDMT agents -Low threshold to start SGLT2 inhibitor -Trend hemoglobin check iron stores - strict I/Os, daily weights, please avoid nephrotoxins (IV contrast, NSAIDs) - please dose reduce antibiotics/medications as appropriate for eGFR - Patient has established relationship with user experience designer Dr. Anaya in [place], - Patient clearly stated would like to avoid any form of dialysis in the future which she is discussed with her outpatient user experience designer. Thank you for allowing us to participate in the care of this patient. Quality Clinical Documentation: Prakash Ortiz MD - 01/30/2025 11:22 AM ESTAssociated Order(s): IP CONSULT TO CARDIOLOGY [facility] Cardiology Consultation Date: 01/30/2025 Referring Physician: No ref. provider found Primary Director Stars: Samir ([facility]) Reason for Initial Consultation: Recurrent flash pulmonary edema. History of Presenting Illness: Yecenia Gaines is a 75 y.o. female with past medical history of HFbEF 45 to 50%, moderate tosevere eccentric MR, CAD status post NEETU RCA, DVT/PE on apixaban, CKD 4, and arthritis on chronic prednisone who presented to the emergency room 01/29 with respiratory distress. She was just admitted here to this hospital last month for a 4-day admission caused by a similar presentation of flash pulmonary edema. She was discharged on 01/02 and apparently saw her cardiologistDr. Dawson the day prior to this admission. She does admit to a several day history of a viral prodrome, but presented to the hospital due to very sudden onset respiratory distress reminiscent of her prior presentation. EMS found her to be in hypoxic respiratory failure and placed her on CPAP. Her initial blood pressure was 230/130 in the emergency room. Presenting EKG in the ER showed sinus tachycardia 118 bpm withnormal axis and normal voltage. There are ST depressions in leads II, aVF, and V6. Chest x-ray shows moderate pulmonary edema and small bilateral pleural effusions. Laboratory workupshows normal electrolytes but abnormal renal function with an acute kidney injury BUN 56 and creatinine 3.5 (baseline creatinine appears to be 2.8-3.0). LFTs show AST 73, ALT 37, alk phos 173. NT proBNP is >35,000 and troponins were 53 and 54, which are comparable to her prior admission. CBC shows chronic anemia with hemoglobin of 9 and hematocrit 33%. Influenza A swab is positive. Overnight, she was admitted to the ICU and she has received just a single dose of 80 mg IV Lasix with 1.2 L of urine out. Renal function has improved to a creatinine of 3.3. Blood pressure remains uncontrolled with systolic readings in the 180s to 190s and diastolics in the 70s to 90s. She is currently being given clonidine 0.1 mg every 8 hours, isosorbide dinitrate 30 mg 3 times daily, metoprolol tartrate 50 twice daily. Past Medical History: Past Medical History: Diagnosis Date Anemia Congestive heart failure Hypertensive disorder Osteoarthritis Bilateral knees right greater than left, and ankles and wrists uri ST elevation (STEMI) myocardial infarction 2018 Past Surgical History: Past Surgical History: Procedure Laterality Date COLONOSCOPY N/A 06/12/2024 Performed by Cristian Maynard MD at [facility] ENDOSCOPY CORONARY ANGIOPLASTY WITH STENT PLACEMENT 10/2018 Current Medications: Outpatient Medications Marked as Taking for the 01/29/25 encounter (Hospital Encounter) Medication Sig Dispense Refill Last Dispense apixaban (ELIQUIS) 2.5 mg Take 2.5 mg by mouth 2 (two) times a day. Unknown (patient-reported) ascorbic wbwn-rmxzglty-jff (VITAMIN C ENERGY BOOSTER) 1,000 mg PwEP Unknown (patient-reported) cloNIDine HCL (CATAPRES) 0.1 MG tablet Take 0.1 mg by mouth every 8 (eight) hours. Unknown (patient-reported) furosemide (LASIX) 40 MG tablet Take 40 mg by mouth daily. Unknown (patient-reported) isosorbide dinitrate (ISORDIL) 30 MG immediate release tablet Take 1 tablet (30 mg total) by mouth 3 (three) times a day. 90 tablet 2 Unknown (outside pharmacy) magnesium oxide 200 mg magnesium Chew Unknown (patient-reported) metoprolol tartrate (LOPRESSOR) 50 MG tablet Take 50 mg by mouth 2 (two) times a day. Unknown (patient-reported) predniSONE (DELTASONE) 5 MG tablet Take 5 mg by mouth daily. Unknown (patient-reported) vitamin B complex-folic acid (B COMPLEX 1, WITH FOLIC ACID,) 0.4 mg Tab Take 1 tablet by mouth. Unknown (patient-reported) [DISCONTINUED] ezetimibe (ZETIA) 10 mg tablet Take 10 mg by mouth daily. Unknown (patient-reported) [DISCONTINUED] folic acid (FOLVITE) 1 MG tablet Take 1 mg by mouth daily. Unknown (patient-reported) Allergies: Allergies Allergen Reactions Allerg Xt,D.Farinae-D.Pteronys Codeine Unknown Nsaids (Non-Steroidal Anti-Inflammatory Drug) Unknown and Other (See Comments) Hydralazine Erythema Drug induced lupus Family History: History reviewed. No pertinent family history. Social History: Social History Social History Narrative Not on file Social History Tobacco Use Smoking status: Never Smokeless tobacco: Never Substance Use Topics Alcohol use: Never Review of Systems: Constitutional: Denies subjective fever, weight loss, or chills. Eyes: Denies blurred vision or vision loss. Ear, Nose, & Throat: Denies dysphagia, sore throat, rhinorrhea, or otalgia. Respiratory: Denies cough, wheezing, or hemoptysis. Gastrointestinal: Denies diarrhea, vomiting, constipation, or abdominal pain. Genitourinary: Denies dysuria, frequency, urgency, rash, or flank pain. Musculoskeletal: Denies myalgias, arthralgias, or weakness. Hematologic: Denies abnormal bruising or bleeding. Skin: Denies rash or other lesions. Neurologic: Denies altered mental status, weakness, numbness, or paresthesias. Psychiatric: Denies agitation or psychosis. Physical Examination: Vital Signs: Vitals: 01/30/25 0830 01/30/25 0845 01/30/25 0900 01/30/25 0914 BP: (!) 180/90 (!) 181/95 (!) 169/79 Pulse: 79 86 65 69 Resp: Temp: TempSrc: SpO2: 92% 94% 93% 94% Weight: Height: BMI: Body mass index is 25.21 kg/m??. Cardiovascular: Normal PMI, no thrills/heave. Normal S1 and S2. No added murmurs, gallops, or rubs. General Appearance: No acute distress, well-nourished. Neurologic: Alert, awake, and oriented, normal affect. Eyes: No conjunctival pallor, xanthelasma, or arcus senilis. Pupils equal. ENT: Normal dentition, no pallor/cyanosis/inflammation of the oral mucosa. Neck: No JVD or hepatojugular reflux. No enlargement of the thyroid. Carotid pulse 2+ bilaterally. No carotid bruits. Respiratory: Appropriate respiratory effort. Lungs clear to auscultation bilaterally, no wheezing/rhonchi/rales. Musculoskeletal: Normal curvature of the spine without kyphosis or scoliosis. Normal gait. Extremities/Skin: Normal hands and feet without stigmata of embolic or peripheral vascular disease.No clubbing or cyanosis noted. Relevant Testing: EKG: Reviewed above in HPI. Echo: Echocardiogram 12/30/2024 during her previous admission here showed borderline reduced EF 45 to 50%with moderate to severe eccentric MR hugging the posterior lateral wall. She has normal RV size andfunction. Her left atrium is moderately to severely dilated. Pulmonary pressure estimation was 41, which is unchanged from prior. Other Cardiovascular Testing: Cardiac catheterization at an outside hospital in October 2018 showed single- vessel obstructive CAD with a 95% stenosis in the RCA that was treated with a drug-eluting stent. Labs: WBC Date Value Ref Range Status 01/30/2025 5.20 4.00 - 11.00 K/uL Final Hemoglobin Date Value Ref Range Status 01/30/2025 7.6 (L) 12.0 - 16.0 g/dL Final Hematocrit Date Value Ref Range Status 01/30/2025 26.5 (L) 36.0 - 46.0 % Final Lab Results Component Value Date NA 145 01/30/2025 K 4.4 01/30/2025 CL 109 (H) 01/30/2025 CO2 20 01/30/2025 BUN 58 (H) 01/30/2025 CRE 3.30 (H) 01/30/2025 GLU 120 (H) 01/30/2025 CA 8.7 01/30/2025 GFR 14 (L) 01/30/2025 ANION 16 01/30/2025 Assessment: Yecenia Gaines is a 75 y.o. female with past medical history of HFbEF 45 to 50%, moderate tosevere MR, CAD status post NEETU RCA, DVT/PE on apixaban, CKD 4, and arthritis on chronic prednisone who presented to the emergency room 01/29 with respiratory distress. This patient has a borderline reduced ejection fraction with EF 45 to 50% on her last echocardiogram here in December. This is in the setting of coronary artery disease, but she denies any recent episodes of angina. Her EKG [address] depressions laterally, but her troponins are flat and I do not suspect an acute coronary syndrome at play. I do suspect that her moderate to severe eccentric MR as seen on her echo in December is likely underappreciated and is the main reason she has presented with flash pulmonary edema twice and has manymonths. She does have influenza A and has been eating some salty foods including a hotdog last week. However, I think her valve needs much more urgent attention and consideration of repair/replacement if possible. I sent a message to her primary poultry farm supervisor Dr. Dawson to make him aware of this. In the meantime, she has already diuresed very successfully. I would continue supportive care of her influenza A infection and continue her home antihypertensive regimen of clonidine 0.2 mg every 8 hours, Isordil 30 mg 3 times daily, and metoprolol tartrate 50 twice daily. I will follow along with you and coordinate her close outpatient follow-up with Dr. Dawson. Electronically signed by: Prakash Osullivan MD [facility] 01/30/2025 documented in this encounter Nursing Notes * Chioma Hanson RN - 02/04/2025 11:25 AM EST Pt admitted 01/29 form home with flu A and flash pulmonary edema. Pt admitted to CCU for BP management, diuresis and BIPAP. Pt with quick turn around monitored on step down for additional 24 hours. Pt constipated taking colace only. Pt OOB with walker, fall risk. Olvera discounted today. Diet regular fluid restriction 2L. * Susannah Olvera RN - 02/01/2025 11:15 AM EST Pt alert and oriented x4; denies pain; afebrile;started on new BP meds, see MAR; on RA, lungs dim/ course; remain on lasix gtt; report given to Moni AHMADI, pt transferred to W4 * Yaya Singh RN - 01/30/2025 12:53 AM EST Pt arrived from ED on BIPAP. Settled easily into bed, Remained on BIPAP for a short bit, transitioned to nasal canula on 2L. Pt given APAP for c/o ear pain and a sore throat. Pt resting comfortably. Pt refused her dose of Apixaban stating I only take it every other day so I don't start bleeding again. Re- educated Pt about the importance of this medication. 0700. Pt received 80mg of Lasix, diuresed 700mls of clear yellow urine. Pt requested to be placed back onBIPAP early this morning. Nitro drip is currently running at 100mcg. documented in this encounter ED Notes * [...] 06/12/2024 Performed by Cristian Maynard MD at [facility] ENDOSCOPY CORONARY ANGIOPLASTY WITH STENT PLACEMENT 10/2018 Home Medications Prior to Admission medications Medication Sig apixaban (ELIQUIS) 2.5 mg 2.5 mg, Oral, 2 times daily ascorbic izbu-hdtniayw-olc (VITAMIN C ENERGY BOOSTER) 1,000 mg PwEP [...] 0.9% 100 mL IVPB-MBP 4.5 g Intravenous New Neetu Boswell RN -- 01/29/20252032 EST acetaminophen (TYLENOL) suppository [...] to an ICU. ED Course as of 01/29/252135 Jackelyn Jan 29, 20252004 Diffuse B-lines on [...] 01/29/252151 documented in this encounter Miscellaneous Notes * Assessment & Plan Note - Jamey Kaplan MD - 02/04/2025 8:57 AM ESTAssociated Problem(s): Acute kidney injury superimposed on chronic [...] nephrology perspective she has established relationship with user experience designer Dr. Anaya in [place], I will make sure she has follow-up with them with blood chemistries within a week - Patient clearly stated would like to avoid any form of dialysis in the future which she is discussed with her outpatient user experience designer. * Assessment & Plan Note - Jamey Kaplan MD - 02/04/2025 8:57 AM ESTAssociated Problem(s): Hypertensive emergency - Blood pressure is reasonable on clonidine, metoprolol could consider addition of hydralazine if cardiology agrees - If being discharged could consider Doppler renal arteries as an outpatient follow-up with outpatient user experience designer and poultry farm supervisor. * Assessment & Plan Note - Jamey Kaplan MD - 02/03/2025 10:05 AM ESTAssociated Problem(s): Acute kidney injury superimposed on chronic kidney disease - Renal function slowly improving diuresed weight is down 254 pounds 11-13 pound lower since admission consider transition to torsemide 60 mg p.o. twice daily consider adding metolazone 5 mg p.o., twice weekly continue with empagliflozin. -Vasodilators as per poultry farm supervisor recommendation, may potentially benefit from heart failure program evaluation and mitral valve procedure will defer to poultry farm supervisor expertise. Hopefully able to complete workup for MitraClip intervention -Unfortunately due to JHONY would hold off on rest of GDMT agents -Trend hemoglobin check iron stores replete as needed May also benefit from CLARI. - strict I/Os, daily weights, please avoid nephrotoxins (IV contrast, NSAIDs) - please dose reduce antibiotics/medications as appropriate for eGFR - Patient has established relationship with user experience designer Dr. Anaya in [place], - Patient clearly stated would like to avoid any form of dialysis in the future which she is discussed with her outpatient user experience designer. * Assessment & Plan Note - Jamey Kaplan MD - 02/03/2025 10:05 AM ESTAssociated Problem(s): Hypertensive emergency - Blood pressure is reasonable on clonidine, metoprolol and nifedipine. - Unclear if she shad a Doppler renal artery in the past If she is still in house on Sunday could rule out PATTI while inpatient * Assessment & Plan Note - Jamey Kaplan MD - 02/02/2025 10:26 AM ESTAssociated Problem(s): Acute kidney injury superimposed on chronic kidney disease - Renal function slowly improving diuresed weight is down 254 pounds 11-13 pound lower since admission consider transition to torsemide 60 mg p.o. twice daily -Vasodilators as per poultry farm supervisor recommendation, may potentially benefit from heart failure program evaluation and mitral valve procedure will defer to poultry farm supervisor expertise. Hopefully able to complete workup for MitraClip intervention - Blood pressure control noted, suggest to add SGLT2 inhibitor -Unfortunately due to JHONY would hold off on rest of GDMT agents -Trend hemoglobin check iron stores replete as needed May also benefit from CLARI. - strict I/Os, daily weights, please avoid nephrotoxins (IV contrast, NSAIDs) - please dose reduce antibiotics/medications as appropriate for eGFR - Patient has established relationship with user experience designer Dr. Anaya in [place], - Patient clearly stated would like to avoid any form of dialysis in the future which she is discussed with her outpatient user experience designer. * Assessment & Plan Note - Jamey Kaplan MD - 02/02/2025 10:12 AM ESTAssociated Problem(s): Hypertensive emergency -Unclear if she shad a Doppler renal artery in the past If she is still in house on Sunday could rule out PATTI while inpatient * Assessment & Plan Note - Jamey Kaplan MD - 02/01/2025 8:14 AM ESTAssociated Problem(s): Acute kidney injury superimposed on chronic kidney disease -Continue with diuretic drip furosemide 10 mg/h replete K and mag as needed -Potentially may use distal acting diuretic/metolazone 5 mg p.o. x 1 to further accentuate diuresisas sequential nephron blockade -Vasodilators as per poultry farm supervisor recommendation, may potentially benefit from heart failure program evaluation and mitral valve procedure will defer to poultry farm supervisor expertise. Hopefully able to complete workup for MitraClip intervention - Patient developed hydralazine induced SLE deferred suggest to keep current approach be cautious with combination of beta-nichelle and clonidine, if need be may add nifedipine XL 30 mg daily (which can be uptitrated) -Unfortunately due to JHONY would hold off on GDMT agents -Low threshold to start SGLT2 inhibitor -Trend hemoglobin check iron stores - strict I/Os, daily weights, please avoid nephrotoxins (IV contrast, NSAIDs) - please dose reduce antibiotics/medications as appropriate for eGFR - Patient has established relationship with user experience designer Dr. Anaya in [place], - Patient clearly stated would like to avoid any form of dialysis in the future which she is discussed with her outpatient user experience designer. * Assessment & Plan Note - Jamey Kaplan MD - 02/01/2025 8:14 AM ESTAssociated Problem(s): Hypertensive emergency -Unclear if she shad a Doppler renal artery in the past If she is still in house on Sunday could rule out PATTI while inpatient * Assessment & Plan Note - Jamey Kaplan MD - 01/31/2025 8:18 AM ESTAssociated Problem(s): Acute kidney injury superimposed on chronic kidney disease -Continue to diurese, If suboptimal response suggest to start a diuretic drip furosemide 10 mg/h -Potentially may use distal acting diuretic/metolazone 5 mg p.o. x 1 to further accentuate diuresisas sequential nephron blockade -Vasodilators as per poultry farm supervisor recommendation, may potentially benefit from heart failure program evaluation and mitral valve procedure will defer to poultry farm supervisor expertise. -Unfortunately due to JHONY would hold off on GDMT agents -Low threshold to start SGLT2 inhibitor -Trend hemoglobin check iron stores - strict I/Os, daily weights, please avoid nephrotoxins (IV contrast, NSAIDs) - please dose reduce antibiotics/medications as appropriate for eGFR - Patient has established relationship with user experience designer Dr. Anaya in [place], - Patient clearly stated would like to avoid any form of dialysis in the future which she is discussed with her outpatient user experience designer. * Assessment & Plan Note - Jamey Kaplan MD - 01/31/2025 8:18 AM ESTAssociated Problem(s): Hypertensive emergency -Unclear if she shad a Doppler renal artery in the past If she is still in house on Sunday could rule out PATTI while inpatient -Patient developed hydralazine induced SLE deferred suggest to keep current approach be cautious with combination of beta-nichelle and clonidine, if need be may add nifedipine XL 30 mg daily (which can be uptitrated) * Hospital Course - Ruddy Umaña CNP [...] The patient should follow-up with her usual user experience designer as recommended by Dr. Kaplan from nephrologyhere The patient should follow-up with her primary poultry farm supervisor at [facility] documented in this encounter Plan of Treatment Upcoming Encounters Date Type Department Care Team (Late st Contact Info) Description 04/07/2025 12:00 PM EST Office Visit [facility] [address] [place] [address] Naun Duran DO [address] [place] [address] [email or web address] Pending Results Name Type Priority Associated Diagnoses [...] 4.00 - 11.00 K/uL 02/04/2025 6:08 AM [facility] RBC 3.06(L) 4.00 - 5.20 M/uL 02/04/2025 6:08 AM [facility] Hemoglobin 8.5(L) 12.0 - 16.0 g/dL 02/04/2025 6:08 AM [facility] Hematocrit 28.8(L) 36.0 - 46.0 % 02/04/2025 6:08 AM [facility] MCV 94.1 80.0 - 100.0 fL 02/04/2025 6:08 AM [facility] MCH 27.8 27.0 - 31.0 pg 02/04/2025 6:08 AM [facility] MCHC 29.5(L) 32.0 - 36.0 g/dL 02/04/2025 6:08 AM [facility] MPV 9.9 8.4 - 12.0 fL 02/04/2025 6:08 AM [facility] RDW-CV 15.4(H) 11.5 - 14.5 % 02/04/2025 6:08 AM [facility] PLT 297 150 - 450 K/uL 02/04/2025 6:08 AM [facility] Neutrophils 50.0 % 02/04/2025 6:08 AM [facility] Lymphocytes 39.5 % 02/04/2025 6:08 AM [facility] Comment:Few atypical lymphoc ytes seen. Monocytes 8.9 % 02/04/2025 6:08 AM [facility] Eosinophils 0.7 % 02/04/2025 6:08 AM [facility] Basophils 0.2 % 02/04/2025 6:08 AM [facility] Imm Grans 0.7 % 02/04/2025 6:08 AM [facility] NRBC 0.0 <=0.0 /100 WBCs 02/04/2025 6:08 AM [facility] Absolute Neutrophils 2.20 1.92 - 7.60 K/uL 02/04/2025 6:08 AM [facility] Absolute Lymphocytes 1.74 0.72 - 4.10 K/uL 02/04/2025 6:08 AM [facility] Absolute Monocytes 0.39 0.16 - 1.10 K/uL 02/04/2025 6:08 AM [facility] Absolute Eosinophils 0.03 0.00 - 0.50 K/uL 02/04/2025 6:08 AM [facility] Absolute Basophils 0.01 0.00 - 0.15 K/uL 02/04/2025 6:08 AM [facility] Absolute Imm Grans 0.03 0.00 - 0.09 K/uL 02/04/2025 6:08 AM [facility] Absolute NRBC 0.00 <=0.00 K cells/uL 02/04/2025 6:08 AM [facility] Absolute Neutrophils 2.20 1.92 - 7.60 K/uL 02/04/2025 6:08 AM [facility] Comment:Automated cell count . Manual ANC may differ if performed. Diff Type Auto 02/04/2025 6:08 AM [facility] Blood (Blood) Venipuncture / Unknown 02/04/2025 5:07 AM EST 02/04/2025 5:12 AM EST us Christa Mcclure PA-C, MS LAB BLOOD BKR ORD ERABLES Final Result [facility] [address] [place] [address] * (ABNORMAL) Basic Metabolic Panel (BMP) (02/04/2025 5:07 AM EST) Sodium 141 136 - 145 mmol/L 02/04/2025 5:46 AM [facility] [facility] Potassium 4.3 3.4 - 5.1 mmol/L 02/04/2025 5:46 AM [facility] Chloride 96(L) 98 - 107 mmol/L 02/04/2025 5:46 AM [facility] CO2 27 20 - 31 mmol/L 02/04/2025 5:46 AM [facility] BUN 77(H) 6 - 23 mg/dL 02/04/2025 5:46 AM [facility] Creatinine 3.70(H) 0.50 - 1.00 mg/dL 02/04/2025 5:46 AM [facility] Glucose 127(H) 70 - 99 mg/dL 02/04/2025 5:46 AM [facility] Calcium 9.1 8.5 - 10.5 mg/dL 02/04/2025 5:46 AM [facility] eGFR 12(L) >59 mL/min/1.7 3m2 02/04/2025 5:46 AM [facility] Comment:Estimated glomerular filtration rate calculated using the CKD-EPI refit equation. Anion Gap 18(H) 3 - 17 mmol/L 02/04/2025 5:46 AM [facility] Blood (Blood) Venipuncture / Unknown 02/04/2025 5:07 AM EST 02/04/2025 5:12 AM EST Christa Mcclure PA-C, MS LAB BLOOD BKR ORD ERABLES Final Result Performing Organization Address [facility] Co de Phone Number [address] [address] * Cortisol (02/04/2025 5:07 AM EST) Cortisol 7.3 See comment ug/dL 02/04/2025 5:46 AM EST [facility] Comment: NORMALS: 8AM-12PM = 5-25 ug/dL [...] ORD ERABLES Final Result Performing Organization Address [facility] Co de Phone Number [address] [address] * XR Abdomen Series Supine with Decubitus/Erect [...] provided indication for this examination in Epic: Abdominal distension; 75 yo female w/ mid [...] to better evaluate her mitral regurgitation. us Carlo Dawn MD CV CARDIAC CATH ORDERABLES Final Result * (ABNORMAL) POCT Venous Blood Gas (02/03/2025 1:40 PM EST) pH 7.44(H) 7.30 - 7.40 02/05/2025 4:39 PM EST [facility] PCO2 44 38 - 50 mm[Hg] 02/05/2025 4:39 PM [facility] PO2 37 35 - 50 mm[Hg] 02/05/2025 4:39 PM [facility] Base Excess 5(H) 0 - 3 mmol/L 02/05/2025 4:39 PM [facility] sO2 72 60 - 85 % 02/05/2025 4:39 PM [facility] Bicarbonate 30 23 - 30 mmol/L 02/05/2025 4:39 PM [facility] Sodium 136 136 - 145 mmol/L 02/05/2025 4:39 PM [facility] Potassium 4.3 3.4 - 5.1 mmol/L 02/05/2025 4:39 PM [facility] Blood (Blood) 02/03/2025 1:4 0 PM EST 02/05/2025 4:39 PM EST us Erik Parry MD LAB POCT DOCKED DEVICE UNSOLICTED RESULTS Final Result Performing Organization Address City/[facility] Co de Phone Number [address] [address] * (ABNORMAL) POCT Arterial Blood Gas (02/03/2025 1:40 PM EST) Base Excess 5.0(H) 0 - 3 mmol/L 02/03/2025 2:08 PM [facility] SO2 72(L) 95 - 98 % 02/03/2025 2:08 PM [facility] Bicarbonate 30(H) 22 - 26 mmol/L 02/03/2025 2:08 PM [facility] Sodium 136 136 - 145 mmol/L 02/03/2025 2:08 PM [facility] Potassium 4.3 3.4 - 5.1 mmol/L 02/03/2025 2:08 PM [facility] Blood (Blood) 02/03/2025 1:4 0 PM EST 02/03/2025 2:08 PM EST us Erik Parry MD LAB POCT DOCKED DEVICE UNSOLICTED RESULTS Final Result [address] [address] * QUEENIE COMP W/ COLOR FLOW AND [...] the medications administered, please refer to the Epic MAR. Meds reconciled and timeout performed and reviewed (see chart). Consent was obtained from: patient Consent was obtained by: Carlo Dawn MD. Probe-placing MD: Carlo Dawn MD. Probe #: 1 Machine #: [id number] The predominant rhythm during the study was sinus. Patient tolerated the procedure well. No adverse reaction to medication was noted. . No complications observed during the procedure. There were no probe complications noted. Comparison Findings Compared to prior TTE on 12/30/2024, IAS/IVS The interatrial septum appears normal. The interventricular septum appears normal. us Carlo Dawn MD CV ECHO ORDERABLES Final Re sult * (ABNORMAL) CBC and Differential (02/03/2025 4:25 AM EST) WBC 3.75(L) 4.00 - 11.00 K/uL 02/03/2025 5:43 AM [facility] RBC 3.04(L) 4.00 - 5.20 M/uL 02/03/2025 5:43 AM [facility] Hemoglobin 8.3(L) 12.0 - 16.0 g/dL 02/03/2025 5:43 AM [facility] Hematocrit 28.9(L) 36.0 - 46.0 % 02/03/2025 5:43 AM [facility] MCV 95.1 80.0 - 100.0 fL 02/03/2025 5:43 AM [facility] MCH 27.3 27.0 - 31.0 pg 02/03/2025 5:43 AM [facility] MCHC 28.7(L) 32.0 - 36.0 g/dL 02/03/2025 5:43 AM [facility] MPV 10.6 8.4 - 12.0 fL 02/03/2025 5:43 AM [facility] RDW-CV 15.3(H) 11.5 - 14.5 % 02/03/2025 5:43 AM [facility] PLT 261 150 - 450 K/uL 02/03/2025 5:43 AM [facility] Neutrophils 40.8 % 02/03/2025 5:43 AM [facility] Lymphocytes 44.3 % 02/03/2025 5:43 AM [facility] Monocytes 12.8 % 02/03/2025 5:43 AM [facility] Eosinophils 1.3 % 02/03/2025 5:43 AM [facility] Basophils 0.3 % 02/03/2025 5:43 AM [facility] Imm Grans 0.5 % 02/03/2025 5:43 AM [facility] NRBC 0.0 <=0.0 /100 WBCs 02/03/2025 5:43 AM [facility] Absolute Neutrophils 1.53(L) 1.92 - 7.60 K/uL 02/03/2025 5:43 AM [facility] Comment:The reference range for individuals with the Rubi null phenotype (Fy(a-b-)) is 1.21-5.39 K/uL. Absolute Lymphocytes 1.66 0.72 - 4.10 K/uL 02/03/2025 5:43 AM [facility] Absolute Monocytes 0.48 0.16 - 1.10 K/uL 02/03/2025 5:43 AM [facility] Absolute Eosinophils 0.05 0.00 - 0.50 K/uL 02/03/2025 5:43 AM [facility] Absolute Basophils 0.01 0.00 - 0.15 K/uL 02/03/2025 5:43 AM [facility] Absolute Imm Grans 0.02 0.00 - 0.09 K/uL 02/03/2025 5:43 AM [facility] Absolute NRBC 0.00 <=0.00 K cells/uL 02/03/2025 5:43 AM [facility] Absolute Neutrophils 1.53(L) 1.92 - 7.60 K/uL 02/03/2025 5:43 AM [facility] Comment:Automated cell count . Manual ANC may differ if performed. Diff Type Auto 02/03/2025 5:43 AM [facility] Blood (Blood) Venipuncture / Unknown 02/03/2025 4:25 AM EST 02/03/2025 4:45 AM EST Ruddy Umaña CNP LAB BLOOD BKR ORDERABLES Final Result Performing Organization Address [facility]/ZIP Co de Phone Number [address] [address] * (ABNORMAL) Phosphorus (02/03/2025 4:25 AM EST) Phosphorus 4.9(H) 2.5 - 4.5 mg/dL 02/03/2025 5:09 AM EST [facility] Blood (Blood) Venipuncture / Unknown 02/03/2025 4:25 AM EST 02/03/2025 4:45 AM EST Ruddy Umaña CNP LAB BLOOD BKR ORDERABLES Final Result Performing Organization Address [facility] Co de Phone Number [address] [address] * Magnesium (02/03/2025 4:25 AM EST) Pathologist [facility] Magnesium 2.0 1.7 - 2.6 mg/dL 02/03/2025 5:09 AM EST [facility] Blood (Blood) Venipuncture / Unknown 02/03/2025 4:25 AM EST 02/03/2025 4:45 AM EST Ruddy Umaña CNP LAB BLOOD BKR ORDERABLES Final Result Performing Organization Address City/[facility]/ZIP Co de Phone Number [address] [address] * (ABNORMAL) Basic Metabolic Panel (BMP) (02/03/2025 4:25 AM EST) Sodium 136 136 - 145 mmol/L 02/03/2025 5:09 AM [facility] Potassium 4.2 3.4 - 5.1 mmol/L 02/03/2025 5:09 AM [facility] Chloride 97(L) 98 - 107 mmol/L 02/03/2025 5:09 AM [facility] CO2 26 20 - 31 mmol/L 02/03/2025 5:09 AM [facility] BUN 69(H) 6 - 23 mg/dL 02/03/2025 5:09 AM [facility] Creatinine 3.30(H) 0.50 - 1.00 mg/dL 02/03/2025 5:09 AM [facility] Glucose 135(H) 70 - 99 mg/dL 02/03/2025 5:09 AM [facility] Calcium 9.3 8.5 - 10.5 mg/dL 02/03/2025 5:09 AM [facility] eGFR 14(L) >59 mL/min/1.7 3m2 02/03/2025 5:09 AM [facility] Comment:Estimated glomerular filtration rate calculated using the CKD-EPI refit equation. Anion Gap 13 3 - 17 mmol/L 02/03/2025 5:09 AM [facility] Blood (Blood) Venipuncture / Unknown 02/03/2025 4:25 AM EST 02/03/2025 4:45 AM EST us Ruddy Umaña BLOCK TRIMMER LAB BLOOD BKR ORDERABLES Final Result [facility] [address] [place] [address] * (ABNORMAL) CBC and Differential (02/02/2025 4:17 AM EST) WBC 3.00(L) 4.00 - 11.00 K/uL 02/02/2025 4:33 AM [facility] RBC 3.05(L) 4.00 - 5.20 M/uL 02/02/2025 4:33 AM [facility] Hemoglobin 8.4(L) 12.0 - 16.0 g/dL 02/02/2025 4:33 AM [facility] Hematocrit 29.1(L) 36.0 - 46.0 % 02/02/2025 4:33 AM [facility] MCV 95.4 80.0 - 100.0 fL 02/02/2025 4:33 AM [facility] MCH 27.5 27.0 - 31.0 pg 02/02/2025 4:33 AM [facility] MCHC 28.9(L) 32.0 - 36.0 g/dL 02/02/2025 4:33 AM [facility] MPV 10.4 8.4 - 12.0 fL 02/02/2025 4:33 AM [facility] RDW-CV 15.5(H) 11.5 - 14.5 % 02/02/2025 4:33 AM [facility] PLT 235 150 - 450 K/uL 02/02/2025 4:33 AM [facility] Neutrophils 44.4 % 02/02/2025 4:33 AM [facility] Lymphocytes 42.3 % 02/02/2025 4:33 AM [facility] Monocytes 11.7 % 02/02/2025 4:33 AM [facility] Eosinophils 1.3 % 02/02/2025 4:33 AM [facility] Basophils 0.0 % 02/02/2025 4:33 AM [facility] Imm Grans 0.3 % 02/02/2025 4:33 AM [facility] NRBC 0.0 <=0.0 /100 WBCs 02/02/2025 4:33 AM [facility] Absolute Neutrophils 1.33(L) 1.92 - 7.60 K/uL 02/02/2025 4:33 AM [facility] Comment:The reference range for individuals with the Rubi null phenotype (Fy(a-b-)) is 1.21-5.39 K/uL. Absolute Lymphocytes 1.27 0.72 - 4.10 K/uL 02/02/2025 4:33 AM [facility] Absolute Monocytes 0.35 0.16 - 1.10 K/uL 02/02/2025 4:33 AM [facility] Absolute Eosinophils 0.04 0.00 - 0.50 K/uL 02/02/2025 4:33 AM [facility] Absolute Basophils 0.00 0.00 - 0.15 K/uL 02/02/2025 4:33 AM [facility] Absolute Imm Grans 0.01 0.00 - 0.09 K/uL 02/02/2025 4:33 AM [facility] Absolute NRBC 0.00 <=0.00 K cells/uL 02/02/2025 4:33 AM [facility] Absolute Neutrophils 1.33(L) 1.92 - 7.60 K/uL 02/02/2025 4:33 AM [facility] Comment:Automated cell count . Manual ANC may differ if performed. Diff Type Auto 02/02/2025 4:33 AM [facility] Blood (Blood) Venipuncture / Unknown 02/02/2025 4:17 AM EST 02/02/2025 4:21 AM EST us Ruddy Umaña CNP LAB BLOOD BKR ORDERABLES Final Result Performing Organization Address [facility]/ZIP Co de Phone Number [address] [address] * Phosphorus (02/02/2025 4:17 AM EST) Phosphorus 3.5 2.5 - 4.5 mg/dL 02/02/2025 4:44 AM [facility] Blood (Blood) Venipuncture / Unknown 02/02/2025 4:17 AM EST 02/02/2025 4:21 AM EST us Ruddy Umaña CNP LAB BLOOD BKR ORDERABLES Final Result Performing Organization Address [facility]/ZIP Co de Phone Number [address] [address] * Magnesium (02/02/2025 4:17 AM EST) Magnesium 2.0 1.7 - 2.6 mg/dL 02/02/2025 4:44 AM [facility] Blood (Blood) Venipuncture / Unknown 02/02/2025 4:17 AM EST 02/02/2025 4:21 AM EST us Ruddy Umaña CNP LAB BLOOD BKR ORDERABLES Final Result Performing Organization Address City/[facility]/ZIP Co de Phone Number [address] [place] [address] * (ABNORMAL) Basic Metabolic Panel (BMP) (02/02/2025 4:17 AM EST) Sodium 140 136 - 145 mmol/L 02/02/2025 4:44 AM [facility] Potassium 4.2 3.4 - 5.1 mmol/L 02/02/2025 4:44 AM [facility] Chloride 103 98 - 107 mmol/L 02/02/2025 4:44 AM [facility] CO2 24 20 - 31 mmol/L 02/02/2025 4:44 AM [facility] BUN 59(H) 6 - 23 mg/dL 02/02/2025 4:44 AM [facility] Creatinine 3.20(H) 0.50 - 1.00 mg/dL 02/02/2025 4:44 AM [facility] Glucose 125(H) 70 - 99 mg/dL 02/02/2025 4:44 AM [facility] Calcium 9.2 8.5 - 10.5 mg/dL 02/02/2025 4:44 AM [facility] eGFR 15(L) >59 mL/min/1.7 3m2 02/02/2025 4:44 AM [facility] Comment:Estimated glomerular filtration rate calculated using the CKD-EPI refit equation. Anion Gap 13 3 - 17 mmol/L 02/02/2025 4:44 AM [facility] Blood (Blood) Venipuncture / Unknown 02/02/2025 4:17 AM EST 02/02/2025 4:21 AM EST us Ruddy Umaña BLOCK TRIMMER LAB BLOOD BKR ORDERABLES Final Result [address] [address] * Phosphorus (02/01/2025 3:41 PM EST) Phosphorus 2.6 2.5 - 4.5 mg/dL 02/01/2025 4:10 PM [facility] Blood (Blood) Venipuncture / Unknown 02/01/2025 3:41 PM EST 02/01/2025 3:45 PM EST us Ruddy Umaña CNP LAB BLOOD BKR ORDERABLES Final Result [address] [address] * Magnesium (02/01/2025 3:41 PM EST) Magnesium 2.0 1.7 - 2.6 mg/dL 02/01/2025 4:10 PM [facility] Blood (Blood) Venipuncture / Unknown 02/01/2025 3:41 PM EST 02/01/2025 3:45 PM EST Ruddy Umaña CNP LAB BLOOD BKR ORDERABLES Final Result Performing Organization Address [facility]/ZIP Co de Phone Number [address] [address] * (ABNORMAL) Basic Metabolic Panel (BMP) (02/01/2025 3:41 PM EST) Sodium 141 136 - 145 mmol/L 02/01/2025 4:10 PM [facility] Potassium 4.9 3.4 - 5.1 mmol/L 02/01/2025 4:10 PM [facility] Chloride 101 98 - 107 mmol/L 02/01/2025 4:10 PM [facility] CO2 23 20 - 31 mmol/L 02/01/2025 4:10 PM [facility] BUN 56(H) 6 - 23 mg/dL 02/01/2025 4:10 PM [facility] Creatinine 3.40(H) 0.50 - 1.00 mg/dL 02/01/2025 4:10 PM [facility] Glucose 158(H) 70 - 99 mg/dL 02/01/2025 4:10 PM [facility] Calcium 9.3 8.5 - 10.5 mg/dL 02/01/2025 4:10 PM [facility] eGFR 14(L) >59 mL/min/1.7 3m2 02/01/2025 4:10 PM [facility] Comment:Estimated glomerular filtration rate calculated using the CKD-EPI refit equation. Anion Gap 17 3 - 17 mmol/L 02/01/2025 4:10 PM [facility] Blood (Blood) Venipuncture / Unknown 02/01/2025 3:41 PM EST 02/01/2025 3:45 PM EST us Ruddy Umaña BLOCK TRIMMER LAB BLOOD BKR ORDERABLES Final Result [facility] [address] [place] [address] * (ABNORMAL) CBC and Differential (02/01/2025 4:23 AM EST) WBC 3.03(L) 4.00 - 11.00 K/uL 02/01/2025 4:48 AM [facility] RBC 2.74(L) 4.00 - 5.20 M/uL 02/01/2025 4:48 AM [facility] Hemoglobin 7.6(L) 12.0 - 16.0 g/dL 02/01/2025 4:48 AM [facility] Hematocrit 26.6(L) 36.0 - 46.0 % 02/01/2025 4:48 AM [facility] MCV 97.1 80.0 - 100.0 fL 02/01/2025 4:48 AM [facility] MCH 27.7 27.0 - 31.0 pg 02/01/2025 4:48 AM [facility] MCHC 28.6(L) 32.0 - 36.0 g/dL 02/01/2025 4:48 AM [facility] MPV 10.5 8.4 - 12.0 fL 02/01/2025 4:48 AM [facility] RDW-CV 15.7(H) 11.5 - 14.5 % 02/01/2025 4:48 AM [facility] PLT 217 150 - 450 K/uL 02/01/2025 4:48 AM [facility] Neutrophils 60.4 % 02/01/2025 4:48 AM [facility] Lymphocytes 28.7 % 02/01/2025 4:48 AM [facility] Monocytes 8.3 % 02/01/2025 4:48 AM [facility] Eosinophils 2.0 % 02/01/2025 4:48 AM [facility] Basophils 0.3 % 02/01/2025 4:48 AM [facility] Imm Grans 0.3 % 02/01/2025 4:48 AM [facility] NRBC 0.0 <=0.0 /100 WBCs 02/01/2025 4:48 AM [facility] Absolute Neutrophils 1.83(L) 1.92 - 7.60 K/uL 02/01/2025 4:48 AM [facility] Comment:The reference range for individuals with the Rubi null phenotype (Fy(a-b-)) is 1.21-5.39 K/uL. Absolute Lymphocytes 0.87 0.72 - 4.10 K/uL 02/01/2025 4:48 AM [facility] Absolute Monocytes 0.25 0.16 - 1.10 K/uL 02/01/2025 4:48 AM [facility] Absolute Eosinophils 0.06 0.00 - 0.50 K/uL 02/01/2025 4:48 AM [facility] Absolute Basophils 0.01 0.00 - 0.15 K/uL 02/01/2025 4:48 AM [facility] Absolute Imm Grans 0.01 0.00 - 0.09 K/uL 02/01/2025 4:48 AM [facility] Absolute NRBC 0.00 <=0.00 K cells/uL 02/01/2025 4:48 AM [facility] Absolute Neutrophils 1.83(L) 1.92 - 7.60 K/uL 02/01/2025 4:48 AM [facility] Comment:Automated cell count . Manual ANC may differ if performed. Diff Type Auto 02/01/2025 4:48 AM [facility] Blood (Blood) Venipuncture / Unknown 02/01/2025 4:23 AM EST 02/01/2025 4:40 AM EST Ruddy Umaña CNP LAB BLOOD BKR ORDERABLES Final Result Performing Organization Address [facility] Co de Phone Number [address] [address] * Phosphorus (02/01/2025 4:23 AM EST) Phosphorus 3.4 2.5 - 4.5 mg/dL 02/01/2025 5:21 AM EST [facility] Blood (Blood) Venipuncture / Unknown 02/01/2025 4:23 AM EST 02/01/2025 4:40 AM EST Ruddy Umaña CNP LAB BLOOD BKR ORDERABLES Final Result Performing Organization Address [facility] de Phone Number [address] [address] * Magnesium (02/01/2025 4:23 AM EST) Magnesium 2.0 1.7 - 2.6 mg/dL 02/01/2025 5:21 AM EST [facility] Blood (Blood) Venipuncture / Unknown 02/01/2025 4:23 AM EST 02/01/2025 4:40 AM EST Ruddy Umaña CNP LAB BLOOD BKR ORDERABLES Final Result Performing Organization Address [facility] de Phone Number [address] [address] * (ABNORMAL) Basic Metabolic Panel (BMP) (02/01/2025 4:23 AM EST) Sodium 144 136 - 145 mmol/L 02/01/2025 5:21 AM EST [facility] Potassium 3.5 3.4 - 5.1 mmol/L 02/01/2025 5:21 AM EST [facility] Chloride 106 98 - 107 mmol/L 02/01/2025 5:21 AM EST [facility] CO2 23 20 - 31 mmol/L 02/01/2025 5:21 AM [facility] BUN 54(H) 6 - 23 mg/dL 02/01/2025 5:21 AM [facility] Creatinine 3.00(H) 0.50 - 1.00 mg/dL 02/01/2025 5:21 AM [facility] Glucose 214(H) 70 - 99 mg/dL 02/01/2025 5:21 AM [facility] Calcium 8.7 8.5 - 10.5 mg/dL 02/01/2025 5:21 AM [facility] eGFR 16(L) >59 mL/min/1.7 3m2 02/01/2025 5:21 AM [facility] Comment:Estimated glomerular filtration rate calculated using the CKD-EPI refit equation. Anion Gap 15 3 - 17 mmol/L 02/01/2025 5:21 AM [facility] Blood (Blood) Venipuncture / Unknown 02/01/2025 4:23 AM EST 02/01/2025 4:40 AM EST us Ruddy Umaña BLOCK TRIMMER LAB BLOOD BKR ORDERABLES Final Result Performing Organization Address City/State/[facility] Co de Phone Number [address] [phone] * ECG 12-LEAD (01/31/2025 2:21 PM EST) Ventricular Rate EKG/MIN 48 BPM [facility] Atrial Rate 48 BPM [facility] SD Interval 142 ms [facility] QRS Duration 78 ms [facility] QT Interval 588 ms [facility] QTC Interval 525 ms [facility] P [place] 58 degrees [facility] R Wave [place] 25 degrees [facility] T Wave [place] 184 degrees [facility] 01/31/2025 2:21 PM EST [...] more evident in Anterolateral leads Confirmed by Carlo Dawn ([id number]) on 02/02/2025 3:18:31 PM Ruddy Umaña BLOCK TRIMMER ECG ORDERABLES Final Res ult Performing Organization Address City/[facility]/ZIP Co de Phone Number [facility] * (ABNORMAL) Troponin (01/31/2025 2:10 PM EST) [facility] Troponin-T HS Gen5 57(H) 0 - 9 ng/L 01/31/2025 2:38 PM [facility] Blood (Blood) Venipuncture / Unknown 01/31/2025 2:10 PM EST 01/31/2025 2:18 PM EST Ruddy Umaña CNP LAB BLOOD BKR ORDERABLES Final Result Performing Organization Address [facility] Co de Phone Number [address] [phone] * (ABNORMAL) CBC and Differential (01/31/2025 5:13 AM EST) [facility] WBC 3.53(L) 4.00 - 11.00 K/uL 01/31/2025 5:24 AM [facility] RBC 2.88(L) 4.00 - 5.20 M/uL 01/31/2025 5:24 AM [facility] Hemoglobin 8.0(L) 12.0 - 16.0 g/dL 01/31/2025 5:24 AM [facility] Hematocrit 27.9(L) 36.0 - 46.0 % 01/31/2025 5:24 AM [facility] MCV 96.9 80.0 - 100.0 fL 01/31/2025 5:24 AM [facility] MCH 27.8 27.0 - 31.0 pg 01/31/2025 5:24 AM [facility] MCHC 28.7(L) 32.0 - 36.0 g/dL 01/31/2025 5:24 AM [facility] MPV 10.5 8.4 - 12.0 fL 01/31/2025 5:24 AM [facility] RDW-CV 15.9(H) 11.5 - 14.5 % 01/31/2025 5:24 AM [facility] PLT 230 150 - 450 K/uL 01/31/2025 5:24 AM [facility] Neutrophils 65.2 % 01/31/2025 5:24 AM [facility] Lymphocytes 19.5 % 01/31/2025 5:24 AM [facility] Monocytes 11.6 % 01/31/2025 5:24 AM [facility] Eosinophils 3.1 % 01/31/2025 5:24 AM [facility] Basophils 0.6 % 01/31/2025 5:24 AM [facility] Imm Grans 0.0 % 01/31/2025 5:24 AM [facility] NRBC 0.0 <=0.0 /100 WBCs 01/31/2025 5:24 AM [facility] Absolute Neutrophils 2.30 1.92 - 7.60 K/uL 01/31/2025 5:24 AM [facility] Absolute Lymphocytes 0.69(L) 0.72 - 4.10 K/uL 01/31/2025 5:24 AM [facility] Absolute Monocytes 0.41 0.16 - 1.10 K/uL 01/31/2025 5:24 AM [facility] [facility] Absolute Eosinophils 0.11 0.00 - 0.50 K/uL 01/31/2025 5:24 AM [facility] Absolute Basophils 0.02 0.00 - 0.15 K/uL 01/31/2025 5:24 AM [facility] Absolute Imm Grans 0.00 0.00 - 0.09 K/uL 01/31/2025 5:24 AM [facility] Absolute NRBC 0.00 <=0.00 K cells/uL 01/31/2025 5:24 AM [facility] Absolute Neutrophils 2.30 1.92 - 7.60 K/uL 01/31/2025 5:24 AM [facility] Comment:Automated cell count . Manual ANC may differ if performed. Diff Type Auto 01/31/2025 5:24 AM [facility] Blood (Blood) Venipuncture / Unknown 01/31/2025 5:13 AM EST 01/31/2025 5:21 AM EST us Brynn Keller MD LAB BLOOD BKR ORDERABLES Jenny leighton Result [facility] [address] [place] [address] * (ABNORMAL) Comprehensive Metabolic Panel (CMP) (01/31/2025 5:13 AM EST) Sodium 143 136 - 145 mmol/L 01/31/2025 5:53 AM [facility] Potassium 4.1 3.4 - 5.1 mmol/L 01/31/2025 5:53 AM [facility] Chloride 109(H) 98 - 107 mmol/L 01/31/2025 5:53 AM [facility] CO2 22 20 - 31 mmol/L 01/31/2025 5:53 AM [facility] BUN 55(H) 6 - 23 mg/dL 01/31/2025 5:53 AM [facility] Creatinine 3.20(H) 0.50 - 1.00 mg/dL 01/31/2025 5:53 AM [facility] Glucose 122(H) 70 - 99 mg/dL 01/31/2025 5:53 AM [facility] Calcium 8.8 8.5 - 10.5 mg/dL 01/31/2025 5:53 AM [facility] AST 28 <33 U/L 01/31/2025 5:53 AM [facility] ALT 30 <34 U/L 01/31/2025 5:53 AM [facility] Alkaline Phosphatase 119 40 - 130 U/L 01/31/2025 5:53 AM [facility] Bilirubin, Total 0.3 0.0 - 1.2 mg/dL 01/31/2025 5:53 AM [facility] Total Protein 6.5 6.4 - 8.3 g/dL 01/31/2025 5:53 AM [facility] Albumin 3.0(L) 3.5 - 5.2 g/dL 01/31/2025 5:53 AM [facility] Globulin 3.5 1.9 - 4.1 g/dL 01/31/2025 5:53 AM [facility] eGFR 15(L) >59 mL/min/1.7 3m2 01/31/2025 5:53 AM [facility] Comment:Estimated glomerular filtration rate calculated using the CKD-EPI refit equation. Anion Gap 12 3 - 17 mmol/L 01/31/2025 5:53 AM [facility] Blood (Blood) Venipuncture / Unknown 01/31/2025 5:13 AM EST 01/31/2025 5:21 AM EST us Brynn Keller MD LAB BLOOD BKR ORDERABLES Jenny l Result Performing Organization Address [facility] Co de Phone Number [address] [address] * (ABNORMAL) C-Reactive Protein (CRP) (01/31/2025 5:13 AM EST) C Reactive Protein 67.5(H) <10.0 mg/L 01/31/2025 5:53 AM [facility] Comment:NOTE: This reference range is for the evaluation of inflammation. Order CRP, High Sensitivity for cardiac risk status evaluation. Blood (Blood) Venipuncture / Unknown 01/31/2025 5:13 AM EST 01/31/2025 5:21 AM EST us Brynn Keller MD LAB BLOOD BKR ORDERABLES Jenny l Result Performing Organization Address City/[facility]/ZIP Co de Phone Number [address] [address] * Thyroid Stimulating Hormone (TSH), with Reflex (01/31/2025 5:13 AM EST) TSH 1.50 0.40 - 5.90 uIU/mL 01/31/2025 5:53 AM [facility] Blood (Blood) Venipuncture / Unknown 01/31/2025 5:13 AM EST 01/31/2025 5:21 AM EST us Brynn Keller MD LAB BLOOD BKR ORDERABLES Jenny l Result Performing Organization Address [facility]/ZIP Co de Phone Number [address] [address] * (ABNORMAL) NT-proBNP (01/31/2025 5:13 AM EST) NT-ProBNP 35,603(H) 0 - 900 pg/mL 01/31/2025 6:08 AM EST [facility] Comment: Age <50 years: 0-450 pg/ml [...] LAB BLOOD BKR ORDERABLES Jenny l Result [address] [address] * (ABNORMAL) Erythrocyte Sedimentation Rate (ESR) (01/31/2025 5:13 AM EST) ESR 79(H) 0 - 30 mm/h 01/31/2025 5:57 AM EST [facility] Blood (Blood) Venipuncture / Unknown 01/31/2025 5:13 AM EST 01/31/2025 5:21 AM EST us Brynn Keller MD LAB BLOOD BKR ORDERABLES Jenny l Result Performing Organization Address City/[facility]/ZIP Co de Phone Number [address] [address] * (ABNORMAL) Ionized Calcium (01/31/2025 5:13 AM EST) Ionized Calcium 1.11(L) 1.14 - 1.30 mmol/L 01/31/2025 5:23 AM EST [facility] Blood (Blood, Venous) Venipuncture / Unknown 01/31/2025 5:13 AM EST 01/31/2025 5:21 AM EST Brynn Keller MD LAB BLOOD BKR ORDERABLES Jenny l Result Performing Organization Address [facility] Co de Phone Number [address] [address] * Phosphorus (01/31/2025 5:13 AM EST) Phosphorus 4.2 2.5 - 4.5 mg/dL 01/31/2025 5:53 AM EST [facility] Blood (Blood) Venipuncture / Unknown 01/31/2025 5:13 AM EST 01/31/2025 5:21 AM EST Brynn Keller MD LAB BLOOD BKR ORDERABLES Jenny l Result Performing Organization Address City/[facility]/ZIP Co de Phone Number [address] [address] * Magnesium (01/31/2025 5:13 AM EST) Magnesium 2.1 1.7 - 2.6 mg/dL 01/31/2025 5:53 AM EST [facility] Blood (Blood) Venipuncture / Unknown 01/31/2025 5:13 AM EST 01/31/2025 5:21 AM EST Brynn Keller MD LAB BLOOD BKR ORDERABLES Jenny manzanares Result [facility] [address] [place] [address] * (ABNORMAL) CBC and Differential (01/30/2025 3:44 PM EST) WBC 3.85(L) 4.00 - 11.00 K/uL 01/30/2025 4:39 PM [facility] RBC 2.77(L) 4.00 - 5.20 M/uL 01/30/2025 4:39 PM [facility] Hemoglobin 7.8(L) 12.0 - 16.0 g/dL 01/30/2025 4:39 PM [facility] Hematocrit 26.9(L) 36.0 - 46.0 % 01/30/2025 4:39 PM [facility] MCV 97.1 80.0 - 100.0 fL 01/30/2025 4:39 PM [facility] MCH 28.2 27.0 - 31.0 pg 01/30/2025 4:39 PM [facility] MCHC 29.0(L) 32.0 - 36.0 g/dL 01/30/2025 4:39 PM [facility] MPV 10.5 8.4 - 12.0 fL 01/30/2025 4:39 PM [facility] RDW-CV 15.8(H) 11.5 - 14.5 % 01/30/2025 4:39 PM [facility] PLT 244 150 - 450 K/uL 01/30/2025 4:39 PM [facility] Neutrophils 77.6 % 01/30/2025 4:39 PM [facility] Lymphocytes 11.9 % 01/30/2025 4:39 PM [facility] Monocytes 9.4 % 01/30/2025 4:39 PM [facility] Eosinophils 0.5 % 01/30/2025 4:39 PM [facility] Basophils 0.3 % 01/30/2025 4:39 PM [facility] Imm Grans 0.3 % 01/30/2025 4:39 PM [facility] NRBC 0.0 <=0.0 /100 WBCs 01/30/2025 4:39 PM [facility] Absolute Neutrophils 2.99 1.92 - 7.60 K/uL 01/30/2025 4:39 PM [facility] Absolute Lymphocytes 0.46(L) 0.72 - 4.10 K/uL 01/30/2025 4:39 PM [facility] Absolute Monocytes 0.36 0.16 - 1.10 K/uL 01/30/2025 4:39 PM [facility] Absolute Eosinophils 0.02 0.00 - 0.50 K/uL 01/30/2025 4:39 PM [facility] Absolute Basophils 0.01 0.00 - 0.15 K/uL 01/30/2025 4:39 PM [facility] Absolute Imm Grans 0.01 0.00 - 0.09 K/uL 01/30/2025 4:39 PM [facility] Absolute NRBC 0.00 <=0.00 K cells/uL 01/30/2025 4:39 PM [facility] Absolute Neutrophils 2.99 1.92 - 7.60 K/uL 01/30/2025 4:39 PM [facility] Comment:Automated cell count . Manual ANC may differ if performed. Diff Type Auto 01/30/2025 4:39 PM [facility] Blood (Blood) Venipuncture / Unknown 01/30/2025 3:44 PM EST 01/30/2025 4:13 PM EST us Brynn Keller MD LAB BLOOD BKR ORDERABLES Jenny manzanares Result [facility] [address] [place], [place] [id number] * Phosphorus (01/30/2025 3:44 PM EST) [facility] Signature Phosphorus 4.3 2.5 - 4.5 mg/dL 01/30/2025 5:30 PM [facility] Blood (Blood) Venipuncture / Unknown 01/30/2025 3:44 PM EST 01/30/2025 4:13 PM EST us Brynn Keller MD LAB BLOOD BKR ORDERABLES Jenny l Result [address] [address] * Magnesium (01/30/2025 3:44 PM EST) Magnesium 2.1 1.7 - 2.6 mg/dL 01/30/2025 5:30 PM [facility] Blood (Blood) Venipuncture / Unknown 01/30/2025 3:44 PM EST 01/30/2025 4:13 PM EST us Brynn Keller MD LAB BLOOD BKR ORDERABLES Jenny manzanares Result Performing Organization Address City/[facility]/ZIP Co de Phone Number [address] [address] * (ABNORMAL) Basic Metabolic Panel (BMP) (01/30/2025 3:44 PM EST) Sodium 140 136 - 145 mmol/L 01/30/2025 5:30 PM [facility] Potassium 3.9 3.4 - 5.1 mmol/L 01/30/2025 5:30 PM [facility] Chloride 104 98 - 107 mmol/L 01/30/2025 5:30 PM [facility] CO2 22 20 - 31 mmol/L 01/30/2025 5:30 PM [facility] BUN 54(H) 6 - 23 mg/dL 01/30/2025 5:30 PM [facility] Creatinine 3.00(H) 0.50 - 1.00 mg/dL 01/30/2025 5:30 PM [facility] Glucose 141(H) 70 - 99 mg/dL 01/30/2025 5:30 PM [facility] Calcium 8.6 8.5 - 10.5 mg/dL 01/30/2025 5:30 PM [facility] eGFR 16(L) >59 mL/min/1.7 3m2 01/30/2025 5:30 PM [facility] Comment:Estimated glomerular filtration rate calculated using the CKD-EPI refit equation. Anion Gap 14 3 - 17 mmol/L 01/30/2025 5:30 PM [facility] Blood (Blood) Venipuncture / Unknown 01/30/2025 3:44 PM EST 01/30/2025 4:13 PM EST us Brynn Keller MD LAB BLOOD BKR ORDERABLES Jenny manzanares Result [facility] [address] [place], [place] [phone] * (ABNORMAL) CBC and Differential (01/30/2025 4:17 AM EST) WBC 5.20 4.00 - 11.00 K/uL 01/30/2025 4:29 AM [facility] RBC 2.68(L) 4.00 - 5.20 M/uL 01/30/2025 4:29 AM [facility] Hemoglobin 7.6(L) 12.0 - 16.0 g/dL 01/30/2025 4:29 AM [facility] Hematocrit 26.5(L) 36.0 - 46.0 % 01/30/2025 4:29 AM [facility] MCV 98.9 80.0 - 100.0 fL 01/30/2025 4:29 AM [facility] MCH 28.4 27.0 - 31.0 pg 01/30/2025 4:29 AM [facility] MCHC 28.7(L) 32.0 - 36.0 g/dL 01/30/2025 4:29 AM [facility] MPV 10.6 8.4 - 12.0 fL 01/30/2025 4:29 AM [facility] RDW-CV 16.0(H) 11.5 - 14.5 % 01/30/2025 4:29 AM [facility] PLT 229 150 - 450 K/uL 01/30/2025 4:29 AM [facility] Neutrophils 81.7 % 01/30/2025 4:29 AM [facility] Lymphocytes 9.0 % 01/30/2025 4:29 AM [facility] Monocytes 8.3 % 01/30/2025 4:29 AM [facility] Eosinophils 0.0 % 01/30/2025 4:29 AM [facility] Basophils 0.4 % 01/30/2025 4:29 AM [facility] Imm Grans 0.6 % 01/30/2025 4:29 AM [facility] NRBC 0.0 <=0.0 /100 WBCs 01/30/2025 4:29 AM [facility] Absolute Neutrophils 4.25 1.92 - 7.60 K/uL 01/30/2025 4:29 AM [facility] Absolute Lymphocytes 0.47(L) 0.72 - 4.10 K/uL 01/30/2025 4:29 AM [facility] Absolute Monocytes 0.43 0.16 - 1.10 K/uL 01/30/2025 4:29 AM [facility] Absolute Eosinophils 0.00 0.00 - 0.50 K/uL 01/30/2025 4:29 AM [facility] Absolute Basophils 0.02 0.00 - 0.15 K/uL 01/30/2025 4:29 AM [facility] Absolute Imm Grans 0.03 0.00 - 0.09 K/uL 01/30/2025 4:29 AM [facility] Absolute NRBC 0.00 <=0.00 K cells/uL 01/30/2025 4:29 AM [facility] Absolute Neutrophils 4.25 1.92 - 7.60 K/uL 01/30/2025 4:29 AM [facility] Comment:Automated cell count . Manual ANC may differ if performed. Diff Type Auto 01/30/2025 4:29 AM [facility] Blood (Blood) Venipuncture / Unknown 01/30/2025 4:17 AM EST 01/30/2025 4:24 AM EST us Daysi Mckenzie PA-C LAB BLOOD BKR ORDERABLE S Final Result [facility] [address] [place] [address] * (ABNORMAL) Phosphorus (01/30/2025 4:17 AM EST) Pathologist [facility] Phosphorus 5.7(H) 2.5 - 4.5 mg/dL 01/30/2025 4:55 AM [facility] Blood (Blood) Venipuncture / Unknown 01/30/2025 4:17 AM EST 01/30/2025 4:24 AM EST Daysi Mckenzie PA-C LAB BLOOD BKR ORDERABLE S Final Result Performing Organization Address [facility]/ZIP Co de Phone Number [address] [address] * Magnesium (01/30/2025 4:17 AM EST) Pathologist [facility] Magnesium 2.1 1.7 - 2.6 mg/dL 01/30/2025 4:55 AM [facility] Blood (Blood) Venipuncture / Unknown 01/30/2025 4:17 AM EST 01/30/2025 4:24 AM EST us Daysi Mckenzie PA-C LAB BLOOD BKR ORDERABLE S Final Result Performing Organization Address [facility]/ZIP Co de Phone Number [address] [address] * (ABNORMAL) Basic Metabolic Panel (BMP) (01/30/2025 4:17 AM EST) Pathologist [facility] Sodium 145 136 - 145 mmol/L 01/30/2025 4:55 AM [facility] Potassium 4.4 3.4 - 5.1 mmol/L 01/30/2025 4:55 AM [facility] Comment:NOTE: Specimen hemol yzed. Results may be falsely increased. Chloride 109(H) 98 - 107 mmol/L 01/30/2025 4:55 AM [facility] CO2 20 20 - 31 mmol/L 01/30/2025 4:55 AM [facility] BUN 58(H) 6 - 23 mg/dL 01/30/2025 4:55 AM [facility] Creatinine 3.30(H) 0.50 - 1.00 mg/dL 01/30/2025 4:55 AM [facility] Glucose 120(H) 70 - 99 mg/dL 01/30/2025 4:55 AM [facility] Calcium 8.7 8.5 - 10.5 mg/dL 01/30/2025 4:55 AM [facility] eGFR 14(L) >59 mL/min/1.7 3m2 01/30/2025 4:55 AM [facility] Comment:Estimated glomerular filtration rate calculated using the CKD-EPI refit equation. Anion Gap 16 3 - 17 mmol/L 01/30/2025 4:55 AM [facility] Blood (Blood) Venipuncture / Unknown 01/30/2025 4:17 AM EST 01/30/2025 4:24 AM EST us Daysi Mckenzie PA-C LAB BLOOD BKR ORDERABLE S Final Result [address] [address] * MRSA NASAL SCREEN, PCR (01/30/2025 4:02 AM EST) Pathologist [facility] MRSA PCR Screen Negative for MRSA Negative for MRSA 01/30/2025 5:35 AM [facility] Swab (Anterior Nares) Non-Blood Collection / Unknown 01/30/2025 4:02 AM EST 01/30/2025 4:22 AM EST us Daysi Mckenzie PA-C LAB GENERAL ORDERABLES Final Result [address] [address] * Lactate, Whole Blood (01/29/2025 11:08 PM EST) Lactate, Whole Blood 1.9 0.5 - 2.0 mmol/L 01/29/2025 11:14 PM [facility] Blood (Blood, Venous) Venipuncture / Unknown 01/29/2025 11:08 PM EST 01/29/2025 11:11 PM EST us Daysi Mckenzie PA-C LAB BLOOD BKR ORDERABLE S Final Result [address] [address] * (ABNORMAL) URINE SEDIMENT (01/29/2025 9:51 PM EST) WBC 0-2 0 - 9 /hpf 01/29/2025 10:05 PM [facility] RBC 0-2 0 - 2 /hpf 01/29/2025 10:05 PM [facility] Squamous Epithelial Cells 3-5(A) Not Present /hpf 01/29/2025 10:05 PM [facility] Mucus Present(A ) Not Present /hpf 01/29/2025 10:05 PM [facility] Granular Cast 1-2(A) Not Present /lpf 01/29/2025 10:05 PM [facility] Hyaline Cast 1-2 0 - 2 /lpf 01/29/2025 10:05 PM [facility] Amorphous Urate/Phosphate crystals Present(A ) Not Present /hpf 01/29/2025 10:05 PM [facility] Urine (Urine, Voided) Non-Blood Collection / Unknown 01/29/2025 9:51 PM EST 01/29/2025 9:55 PM EST us Montrell Munoz MD LAB URINE ORDERABLES Final Result [address] [address] * (ABNORMAL) Urinalysis with Reflex to Urine Culture (01/29/2025 9:51 PM EST) Color Yellow Yellow 01/29/2025 9:59 PM [facility] Clarity Clear Clear 01/29/2025 9:59 PM [facility] Glucose Negative Negative 01/29/2025 9:59 PM [facility] Bilirubin Urine Negative Negative 9:59 PM [facility] Ketone Urine Negative Negative 01/29/2025 9:59 PM [facility] Specific [place] 1.020 1.001 - 1.035 01/29/2025 9:59 PM [facility] Blood 1+(A) Negative 01/29/2025 9:59 PM [facility] pH 6.0 5.0 - 8.0 01/29/2025 9:59 PM [facility] Protein 3+(A) Negative 01/29/2025 9:59 PM [facility] Nitrites Negative Negative 01/29/2025 9:59 PM [facility] Leukocyte Esterase Negative Negative 01/29/2025 9:59 PM [facility] Urobilinogen Negative Negative 01/29/2025 9:59 PM [facility] Urine (Urine, Voided) Non-Blood Collection / Unknown 01/29/2025 9:51 PM EST 01/29/2025 9:55 PM EST us Montrell Munoz MD LAB URINE ORDERABLES Final Result Performing Organization Address City/State/[facility] Co de Phone Number [address] [address] * (ABNORMAL) Venous Blood Gas (VBG) (01/29/2025 9:05 PM EST) pH, Venous 7.24(L) 7.31 - 7.41 01/29/2025 9:13 PM [facility] pCO2, Venous 53(H) 35 - 45 mm[Hg] 01/29/2025 9:13 PM [facility] pO2, Venous 42(H) 35 - 40 mm[Hg] 01/29/2025 9:13 PM [facility] Base Excess -5.0(L) -3.0 - 3.0 mmol/L 01/29/2025 9:13 PM [facility] Bicarbonate (HCO3) 23 23 - 28 mmol/L 01/29/2025 9:13 PM [facility] Oxygen Saturation, Venous 68.8 60.0 - 80.0 % 01/29/2025 9:13 PM [facility] Blood (Blood, Venous) Venipuncture / Unknown 01/29/2025 9:05 PM EST 01/29/2025 9:09 PM EST Montrell Munoz MD LAB BLOOD BKR ORDERABLES Fi nal Result Performing Organization Address City/[facility]/ZIP Co de Phone Number [address] [address] * (ABNORMAL) Troponin (01/29/2025 9:05 PM EST) [facility] Troponin-T HS Gen5 54(H) 0 - 9 ng/L 01/29/2025 9:30 PM [facility] Blood (Blood) Venipuncture / Unknown 01/29/2025 9:05 PM EST 01/29/2025 9:10 PM EST Montrell Munoz MD LAB BLOOD BKR ORDERABLES Fi nal Result Performing Organization Address City/[facility]/ZIP Co de Phone Number [address] [address] * (ABNORMAL) SARS-CoV-2, INFLUENZA A/B, PCR (01/29/2025 8:43 PM EST) [facility] SARS-CoV-2 RNA PCR Not Detected Not Detected 01/29/2025 9:20 PM [facility] Influenza A PCR Detected(A) Not Detected 01/29/2025 9:20 PM [facility] Influenza B PCR Not Detected Not Detected 01/29/2025 9:20 PM [facility] Swab (Nasopharynx, Bilateral) Non-Blood Collection / Unknown 01/29/2025 8:43 PM EST 01/29/2025 8:46 PM EST Montrell Munoz MD LAB GENERAL ORDERABLES Jenny l Result Performing Organization Address City/[facility]/ZIP Co de Phone Number [address] [address] * Symptomatic Respiratory Virus Testing Panel (ED/IP) (01/29/2025 8:43 PM EST) Pathologist [facility] SARS Comment 01/29/2025 8:58 PM [facility] Comment:This test automatica lly orders a COVID-19 PCR and may add Flu, RSV, or other viral tests based on patient clinical factors and site protocols. Results will appear below and separately in chart review when available. Swab (Nasopharynx, Bilateral) Non-Blood Collection / Unknown 01/29/2025 8:43 PM EST 01/29/2025 8:46 PM EST Montrell Munoz MD LAB GENERAL ORDERABLES Jenny l Result Performing Organization Address [facility] Co de Phone Number [address] [address] * Lab Add-On (01/29/2025 8:26 PM EST) [facility] Specimen Date/Time 01/31/2025 8:05 AM [facility] Test Requested Lipase, LFTs 01/31/2025 8:05 AM [facility] Specimen Description 01/31/2025 8:05 AM [facility] Comments 01/31/2025 8:05 AM [facility] Was this request processed? Yes 01/31/2025 8:05 AM [facility] Other (Other) 01/29/2025 8:2 6 PM EST 01/29/2025 8:26 PM EST us Montrell Munoz MD LAB GENERAL ORDERABLES Jenny l Result Performing Organization Address City/[facility]/ZIP Co de Phone Number [address] [address] * XR Chest Portable (01/29/2025 8:15 PM EST) Anatomical Region Laterality Modality Chest Computed Radiogr aphy 01/29/2025 11:2 8 PM EST Impressions 01/29/2025 11:30 PM EST Moderate pulmonary edema and small pleural effusions. Narrative 01/29/2025 11:30 PM EST XR CHEST PORTABLE Referring clinician's provided indication for this examination in [facility]: Shortness of breath COMPARISON: XR CHEST PORTABLE [...] clinician's provided indication for this examination in [facility]:Shortness of breath COMPARISON: XR CHEST PORTABLE FINDINGS: [...] BPM [facility] Atrial Rate 118 BPM [facility] SD Interval 134 ms [facility] QRS Duration 86 ms [facility] QT Interval 306 ms [facility] QTC Interval 428 ms [facility] P [place] 78 degrees [facility] R Wave [place] 47 degrees [facility] T Wave [place] 88 degrees [facility] 01/29/2025 8:15 PM EST 01/30/2025 4:46 PM EST Narrative [facility] - 01/30/2025 4:46 PM EST Sinus tachycardia Possible Left atrial enlargement Left ventricular hypertrophy ST & T wave abnormality, consider lateral ischemia Abnormal ECG When compared with ECG of 30-Dec-2024 02:25, No significant change was found Confirmed by Prakash Osullivan ([id number]) on 01/30/2025 4:46:22 PM us Montrell Munoz MD ECG ORDERABLES Final Resul t [facility] * PT-INR (01/29/2025 8:10 PM EST) PT 13.0 10.0 - 13.0 sec 01/29/2025 9:07 PM [facility] INR 1.1 0.9 - 1.1 01/29/2025 9:07 PM [facility] Comment:Therapeutic Range 2. 0 - 3.5 Blood (Blood) Venipuncture / Unknown 01/29/2025 8:10 PM EST 01/29/2025 8:12 PM EST us Montrell Munoz MD LAB BLOOD BKR ORDERABLES Fi nal Result [address] [address] * (ABNORMAL) Hepatic Panel (LFTs) (01/29/2025 8:05 PM EST) AST 73(H) <33 U/L 01/29/2025 9:20 PM [facility] ALT 37(H) <34 U/L 01/29/2025 9:20 PM [facility] Alkaline Phosphatase 173(H) 40 - 130 U/L 01/29/2025 9:20 PM [facility] Bilirubin, Total 0.4 0.0 - 1.2 mg/dL 01/29/2025 9:20 PM [facility] Bilirubin, Direct 0.2 0.0 - 0.3 mg/dL 01/29/2025 9:20 PM [facility] Total Protein 7.4 6.4 - 8.3 g/dL 01/29/2025 9:20 PM [facility] Albumin 3.4(L) 3.5 - 5.2 g/dL 01/29/2025 9:20 PM [facility] Globulin 4.0 1.9 - 4.1 g/dL 01/29/2025 9:20 PM [facility] Blood (Blood) Venipuncture / Unknown 01/29/2025 8:05 PM EST 01/29/2025 8:10 PM EST Montrell Munoz MD LAB BLOOD BKR ORDERABLES Fi nal Result Performing Organization Address City/[facility]/ZIP Co de Phone Number [address] [address] * Lipase (01/29/2025 8:05 PM EST) Pathologist [facility] Lipase 41 13 - 60 U/L 01/29/2025 9:20 PM [facility] Blood (Blood) Venipuncture / Unknown 01/29/2025 8:05 PM EST 01/29/2025 8:10 PM EST Montrell Munoz MD LAB BLOOD BKR ORDERABLES Fi nal Result [address] [address] * (ABNORMAL) Lactate, Whole Blood (01/29/2025 8:05 PM EST) Lactate, Whole Blood 4.5(H) 0.5 - 2.0 mmol/L 01/29/2025 8:13 PM [facility] Blood (Blood, Venous) Venipuncture / Unknown 01/29/2025 8:05 PM EST 01/29/2025 8:09 PM EST us Montrell Munoz MD LAB BLOOD BKR ORDERABLES Fi nal Result Performing Organization Address [facility] Co de Phone Number [address] [address] * Blood Culture, Routine (01/29/2025 8:05 PM EST) Blood Culture/Test No growth at 5 days 02/03/2025 8:15 PM EST [facility] Blood (Blood) Venipuncture / Unknown 01/29/2025 8:05 PM EST 01/29/2025 8:09 PM EST us Montrell Munoz MD LAB MICROBIOLOGY CULTURE OR DERABLES Final Result Performing Organization Address [facility] Co de Phone Number [address] [address] * Blood Culture, Routine (01/29/2025 8:05 PM EST) Blood Culture/Test No growth at 5 days 02/03/2025 8:15 PM EST [facility] Blood (Blood) Venipuncture / Unknown 01/29/2025 8:05 PM EST 01/29/2025 8:09 PM EST us Montrell Munoz MD LAB MICROBIOLOGY CULTURE OR DERABLES Final Result Performing Organization Address [facility] Co de Phone Number [address] [address] * (ABNORMAL) CBC and Differential (01/29/2025 8:05 PM EST) WBC 7.99 4.00 - 11.00 K/uL 01/29/2025 8:14 PM [facility] RBC 3.24(L) 4.00 - 5.20 M/uL 01/29/2025 8:14 PM [facility] Hemoglobin 9.0(L) 12.0 - 16.0 g/dL 01/29/2025 8:14 PM [facility] Hematocrit 32.8(L) 36.0 - 46.0 % 01/29/2025 8:14 PM [facility] MCV 101.2(H) 80.0 - 100.0 fL 01/29/2025 8:14 PM [facility] MCH 27.8 27.0 - 31.0 pg 01/29/2025 8:14 PM [facility] MCHC 27.4(L) 32.0 - 36.0 g/dL 01/29/2025 8:14 PM [facility] MPV 10.3 8.4 - 12.0 fL 01/29/2025 8:14 PM [facility] RDW-CV 16.0(H) 11.5 - 14.5 % 01/29/2025 8:14 PM [facility] PLT 320 150 - 450 K/uL 01/29/2025 8:14 PM [facility] Neutrophils 65.0 % 01/29/2025 8:14 PM [facility] Lymphocytes 24.0 % 01/29/2025 8:14 PM [facility] Monocytes 8.1 % 01/29/2025 8:14 PM [facility] Eosinophils 1.9 % 01/29/2025 8:14 PM [facility] Basophils 0.5 % 01/29/2025 8:14 PM [facility] Imm Grans 0.5 % 01/29/2025 8:14 PM [facility] NRBC 0.0 <=0.0 /100 WBCs 01/29/2025 8:14 PM [facility] Absolute Neutrophils 5.19 1.92 - 7.60 K/uL 01/29/2025 8:14 PM [facility] Absolute Lymphocytes 1.92 0.72 - 4.10 K/uL 01/29/2025 8:14 PM [facility] Absolute Monocytes 0.65 0.16 - 1.10 K/uL 01/29/2025 8:14 PM [facility] Absolute Eosinophils 0.15 0.00 - 0.50 K/uL 01/29/2025 8:14 PM [facility] Absolute Basophils 0.04 0.00 - 0.15 K/uL 01/29/2025 8:14 PM [facility] Absolute Imm Grans 0.04 0.00 - 0.09 K/uL 01/29/2025 8:14 PM [facility] Absolute NRBC 0.00 <=0.00 K cells/uL 01/29/2025 8:14 PM [facility] Absolute Neutrophils 5.19 1.92 - 7.60 K/uL 01/29/2025 8:14 PM [facility] Comment:Automated cell count . Manual ANC may differ if performed. Diff Type Auto 01/29/2025 8:14 PM [facility] Blood (Blood) Venipuncture / Unknown 01/29/2025 8:05 PM EST 01/29/2025 8:10 PM EST Montrell Munoz MD LAB BLOOD BKR ORDERABLES Fi nal Result Performing Organization Address City/[facility] Co de Phone Number [address] [address] * (ABNORMAL) NT-proBNP (01/29/2025 8:05 PM EST) NT-ProBNP >35,000(H) 0 - 900 pg/mL 01/29/2025 8:47 PM [facility] Comment: Age <50 years: 0-450 pg/ml Age [...] LAB BLOOD BKR ORDERABLES Fi nal Result [address] [address] * (ABNORMAL) Troponin (01/29/2025 8:05 PM EST) [facility] Troponin-T HS Gen5 53(H) 0 - 9 ng/L 01/29/2025 8:35 PM [facility] Blood (Blood) Venipuncture / Unknown 01/29/2025 8:05 PM EST 01/29/2025 8:10 PM EST us Montrell Munoz MD LAB BLOOD BKR ORDERABLES Fi nal Result Performing Organization Address City/[facility]/ZIP Co de Phone Number [address] [address] * (ABNORMAL) Basic Metabolic Panel (BMP) (01/29/2025 8:05 PM EST) [facility] Sodium 144 136 - 145 mmol/L 01/29/2025 8:37 PM [facility] Potassium 4.3 3.4 - 5.1 mmol/L 01/29/2025 8:37 PM [facility] Chloride 107 98 - 107 mmol/L 01/29/2025 8:37 PM [facility] CO2 19(L) 20 - 31 mmol/L 01/29/2025 8:37 PM [facility] BUN 56(H) 6 - 23 mg/dL 01/29/2025 8:37 PM [facility] Creatinine 3.50(H) 0.50 - 1.00 mg/dL 01/29/2025 8:37 PM [facility] Glucose 192(H) 70 - 99 mg/dL 01/29/2025 8:37 PM [facility] Calcium 9.4 8.5 - 10.5 mg/dL 01/29/2025 8:37 PM [facility] eGFR 13(L) >59 mL/min/1.7 3m2 01/29/2025 8:37 PM [facility] Comment:Estimated glomerular filtration rate calculated using the CKD-EPI refit equation. Anion Gap 18(H) 3 - 17 mmol/L 01/29/2025 8:37 PM EST [facility] Blood (Blood) Venipuncture / Unknown 01/29/2025 8:05 PM EST 01/29/2025 8:10 PM EST us Montrell Munoz MD LAB BLOOD BKR ORDERABLES Fi nal Result Performing Organization Address City/State/[facility] Co de Phone Number [address] [address] * US BEDSIDE (01/29/2025 7:51 PM EST) [...] positive Images: Images Saved: Yes Accession Number: [id number] Montrell Munoz MD IMG POINT OF CARE [...] of venous thrombosis and embolism Hypertensive emergency Acute on chronic congestive heart failure, unspecified heart failure type documented in this encounter Admitting Diagnoses Diagnosis Flash pulmonary edema Unspecified acute edema of lung documented in this encounter Administered Medications Inactive Administered Medications - up to 3 most recent administrations Medication Order MAR Action Action Date Dose Rate Site acetaminophen (TYLENOL) tablet 650 mg 650 mg, [...] Given 02/04/2025 8:30 AM EST 2.5 mg chlorhexidine gluconate 2 % wipe 1 each [...] Given 02/03/2025 11:46 PM EST 0.1 mg docusate (COLACE) 50 mg/5 mL liquid 100 mg 100 mg, Oral, 2 times daily, First dose on Sun02/03/25 at 2100, Mix with 6 to 8 oz of milk or fruit juice prior to administration. Given 02/04/2025 8:35 AM EST 100 mg Given 02/03/2025 9:55 PM EST 100 mg empagliflozin (JARDIANCE) tablet 10 mg 10 mg, Oral, Daily, First dose on Sun02/02/25 at 1000 fentaNYL (PF) (SUBLIMAZE) injection As needed, Starting on Sun02/03/25 at 1314, Intra-op/procedure Given 02/03/2025 1:28 PM EST 25 mcg Given 02/03/2025 1:14 PM EST 25 mcg guaiFENesin (ROBITUSSIN) 100 mg/5 mL syrup 400 mg 400 mg, Oral, Every 6 hours PRN, congestion, Starting on Sun01/30/25 at 0351 Given 02/02/2025 4:31 PM EST 400 mg Given 02/01/2025 9:49 PM EST 400 mg Given 01/31/2025 11:26 PM EST 400 mg heparin 1,000 unit/mL injection As needed, Starting on Sun02/03/25 at 1335, Intra-op/procedure Given 02/03/2025 1:40 PM EST 3,000 Units Given 02/03/2025 1:35 PM EST 2,000 Units ipratropium-albuteroL (DUONEB) 0.5-3 mg (2.5 mg base)/3 mL nebulizer solution 3 mL 3 mL, Nebulization, Every 6 hours PRN, wheezing, Starting on Sun01/31/25 at 1930 isosorbide dinitrate (ISORDIL) IMMEDIATE release tablet 40 mg 40 mg, Oral, Every 8 hours, First dose (after last modification) on Sun02/01/25 at 0500 Given 02/04/2025 5:21 AM EST 4 0 mg Given 02/03/2025 8:05 PM EST 40 mg Given 02/03/2025 2:52 PM EST 40 mg lidocaine (XYLOCAINE) 2% injection As needed, Starting on Sun02/03/25 at 1326, Intra-op/procedure Given 02/03/2025 1:30 PM EST 5 mL Right Arm Given 02/03/2025 1:26 PM EST 5 mL Ri ght Arm metoprolol tartrate (LOPRESSOR) IMMEDIATE release tablet 50 mg 50 mg, Oral, 2 times daily, First dose on Sun01/30/25 at 0900, Hold Parameters: Systolic BP LESS than 100 mmHg, Hold Parameters: Heart Rate LESS than 60 bpm Given 02/01/2025 8:25 PM EST 50 mg Given 01/31/2025 8:24 AM EST 50 mg Given 01/30/2025 8:40 PM EST 50 mg nitroglycerin infusion premix Intra-op continuous PRN, Starting on Sun02/03/25 at 1332, Intra-op/procedure New Bag 02/03/2025 1:45 PM EST 400 mcg Intracath bolus New Bag 02/03/2025 1:32 PM EST 400 mcg In tracath bolus phenoL (CHLORASEPTIC) 1.4 % mouth spray 1 spray 1 spray, Mouth/Throat, Every 2 hour PRN, sore throat, may alternate with cepacol lozenges, Starting on Sun01/30/25 at 0352 Given 01/30/2025 4:03 AM ES T 1 spray polyethylene glycol packet 17 g, Oral, Daily, First dose on Sun02/04/25 at 0900, Dissolve and stir one packet of powder (17 g) in 4-8 oz of water or juice. predniSONE (DELTASONE) tablet 5 mg 5 mg, [...] PRN, gas, Starting on Sun02/03/25 at 1855 Given 02/03/2025 8:04 PM EST 40 mg sodium chloride (NS) 0.9 % syringe flush 3 mL 3 mL, Intravenous, As needed, line care, Starting on Sun02/02/25 at 0854, Per Institutional IV Line Care Policy. sodium chloride (OCEAN) 0.65 % nasal spray 1 spray 1 spray, Each Nare, As needed, irritation, Starting on Sun02/01/25 at 0523 Given 02/01/2025 5:32 AM EST 1 spray sore throat (CEPACOL) lozenge 1 lozenge 1 [...] mmHg 1904 (Given - Provider: Carol Ann Yates, RN) 0830 (Given - Provider: Chioma Hanson, GALDINO) apixaban (ELIQUIS) tablet 2.5 mg 2.5 mg, Oral, 2 times daily, First dose (after last modification) on Sun02/03/25 at 2000, Take with or without food 0855 (Held by provider - Provider: Carlo Dawn MD) 2000 (Automatically Held) 0105 (Unheld by provider - Provider: Fan Cameron NP)0830 (Given - Provider: Chioma Hanson, GALDINO) chlorhexidine gluconate 2 % wipe 1 each 1 each (1 Application), Topical, Daily, First dose on Sun01/30/25 at 0015, Apply to body. Use each wipe only once. Do not use wipes on face or any mucous membranes. Cleanse tubes and lines, avoid dressings. For TOPICAL Use Only 0917 (Given - Provider: Kaniak Hernandez RN) 0930 (Given - Provider: Carol Ann Yates RN)1040 (APR Hold - Provider: Automatic Transfer Provider - Reason: Unreviewed Transfer Orders)1200 (APR Unhold - Provider: Automatic Transfer Provider)1200 (APR Hold - Provider: User Epic - Reason: Unreviewed Transfer Orders)1434 (APR Unhold - Provider: User Epic) 0831 (Given - Provider: Chioma Hanson, GALDINO) cloNIDine HCL (CATAPRES) tablet 0.1 mg 0.1 mg, Oral, Every 8 hours, First dose (after last modification) on Sun02/04/25 at 0015 2346 (Given - Provider: Cathie He RN) 0830 (Given - Provider: Chioma Hanson, GALDINO) cloNIDine HCL (CATAPRES) tablet 0.2 mg (CANCELED) 0.2 mg, Oral, Every 8 hours, First dose (after last modification) on Sun01/30/25 at 1615 0920 (Given - Provider: Kanika Hernandez RN)1838 (Given - Provider: Kanika Hernandez RN) 0019 (Given - Provider: Osmar Wayne RN)0855 (Given - Provider: Carol Ann Yates RN)1040 (APR Hold - Provider: Automatic Transfer Provider - Reason: Unreviewed Transfer Orders)1200 (APR Unhold - Provider: Automatic Transfer Provider)1200 (APR Hold - Provider: User Epic - Reason: Unreviewed Transfer Orders)1434 (APR Unhold - Provider: User Epic)1610 (Given - Provider: Carol Ann Yates RN) docusate (COLACE) 50 mg/5 mL liquid 100 mg 100 mg, Oral, 2 times daily, First dose on Sun02/03/25 at 2100, Mix with 6 to 8 oz of milk or fruit juice prior to administration. 2155 (Given - Provider: Cathie He RN) 0835 (Given - Provider: Chioma Hanson, GALDINO) empagliflozin (JARDIANCE) tablet 10 mg 10 mg, Oral, Daily, First dose on Sun02/02/25 at 1000 1215 (Not Given - Provider: [...] Orders)1434 (APR Unhold - Provider: User Epic) 0833 (Not Given - Provider: Chioma Hanson RN - Reason: Patient/family refused) Olvera Care wipe (SURESTEP POST INSERTION) towelette (CANCELED) Topical, 2 times daily, First dose on Sun01/31/25 at 2145, Apply Olvera Care Wipe to perineal area twice a day until urinary catheter is removed. For TOPICAL Use Only 0917 (Given - Provider: Kanika Hernandez RN)2129 (Given - Provider: Osmar Wayne RN) 0855 (Given - Provider: Carol Ann Yates RN)1040 (APR Hold - Provider: Automatic Transfer Provider - Reason: Unreviewed Transfer Orders)1200 (APR Unhold - Provider: Automatic Transfer Provider)1200 (APR Hold - Provider: User Epic - Reason: Unreviewed Transfer Orders)1434 (APR Unhold - Provider: User Epic)2003 (Given - Provider: Cathie He RN) 0835 (Given - Provider: Chioma Hanson RN) isosorbide dinitrate (ISORDIL) IMMEDIATE release tablet 40 mg 40 mg, Oral, Every 8 hours, First dose (after last modification) on Sun02/01/25 at 0500 0454 (Given - Provider: Polly Ryder)1414 (Not Given - Provider: Kanika Hernandez RN - Reason: Patient/family refused - Comment: concerned she will get dizzy again)2142 (Given - Provider: Osmar Wayne RN) 0549 (Given - Provider: Osmar Wayne RN)1040 (APR Hold - Provider: Automatic Transfer Provider - Reason: Unreviewed Transfer Orders)1200 (APR Unhold - Provider: Automatic Transfer Provider)1200 (APR Hold - Provider: User Epic - Reason: Unreviewed Transfer Orders)1434 (APR Unhold - Provider: User Epic)1452 (Given - Provider: Carol Ann Yates, GALDINO - Comment: Chucky Meza)2004 (Given - Provider: Cathie He, GALDINO) 0521 (Given - Provider: Cathie He, GALDINO) lactated ringers IV Bolus 500 mL (COMPLETED) [...] Ann Yates RN - Reason: Contraindicated)104 0 (MAR Hold - Provider: Automatic Transfer Provider - Reason: Unreviewed Transfer Orders)1200 (APR Unhold - Provider: Automatic Transfer Provider)1200 ([facility] Hold - Provider: User Epic - Reason: Unreviewed Transfer Orders)1434 ([facility] Unhold - Provider: User Epic)2003 (Not Given [...] Ann Yates RN - Reason: Patient/family refused)1040 (MAR Hold - Provider: Automatic Transfer Provider - Reason: Unreviewed Transfer Orders)1200 ([facility] Unhold - Provider: Automatic Transfer Provider)1200 ([facility] Hold - Provider: User Epic - Reason: Unreviewed Transfer Orders)1434 ([facility] Unhold - Provider: User Epic) oseltamivir (TAMIFLU) [...] User Epic) 0830 (Given - Provider: Chioma Hanson RN) senna (SENOKOT) tablet 2 tablet 2 tablet, Oral, Nightly, First dose on Sun01/30/25 at 0015 2143 (Not Given - Provider: Osmar Wayne RN - Reason: Patient/family refused) 1040 (APR Hold - Provider: Automatic Transfer Provider - Reason: Unreviewed Transfer Orders)1200 ([facility] Unhold - Provider: Automatic Transfer Provider)1200 ([facility] Hold - Provider: User Epic - Reason: Unreviewed Transfer Orders)1434 ([facility] Unhold - Provider: User Epic)2002 (Not Given [...] (Given - Provider: Carol Ann Yates RN)1040 (MAR Hold - Provider: Automatic Transfer Provider - Reason: Unreviewed Transfer Orders)1200 ([facility] Unhold - Provider: Automatic Transfer Provider)1200 ([facility] Hold - Provider: User Epic - Reason: Unreviewed Transfer Orders)1434 ([facility] Unhold - Provider: User Epic)1609 (Given - Provider: Carol Ann Yates, RN) 0831 (Given - Provider: Chioma Hanson, GALDINO) Continuous Medication Order 02/02/2025 02/03/2025 02/04/2025 sodium chloride 0.9% infusion () 150 mL/hr, Intravenous, Continuous, Starting on Sun02/03/25 at 1500, For 2 hours, Recovery & Post-op 1536 (New Bag - Provider: Carol Ann Yates, GALDINO) PRN Medication Order 02/02/2025 02/03/2025 02/04/2025 acetaminophen (TYLENOL) tablet 650 mg 650 mg, Oral, Every 6 hours PRN, mild pain or 1-3 (on a general 0-10 scale), fever, Starting on Sun01/30/25 at 0029 0920 (Given - Provider: Kanika Hernandez RN) 1040 ([facility] Hold - Provider: Automatic Transfer Provider - Reason: Unreviewed Transfer Orders)1200 ([facility] Unhold - Provider: Automatic Transfer Provider)1200 ([facility] Hold - Provider: User Epic - Reason: Unreviewed Transfer Orders)1434 ([facility] Unhold - Provider: User Epic) atropine injection syringe 1 mg 1 mg, Intravenous, Once as needed, other (free text field), vagal reaction, HR less 40, Starting on Sun02/03/25 at 1407, For 1 dose, Recovery & Post-op benzocaine (HURRICAINE) 20 % spray (CANCELED) Mouth/Throat, As needed, Starting on Sun02/03/25 at 1104, Intra-op/procedure 1104 (Given - Provider: Carlo Dawn MD) fentaNYL (PF) (SUBLIMAZE) injection (CANCELED) As needed, Starting on Sun02/03/25 at 1314, Intra-op/procedure 1314 (Given - Provider: Merlin Lazcano, GALDINO)1328 (Given - Provider: Merlin Lazcano RN) guaiFENesin (ROBITUSSIN) 100 mg/5 mL syrup 400 mg 400 mg, Oral, Every 6 hours PRN, congestion, Starting on Sun01/30/25 at 0351 0922 (Not Given - Provider: Kanika Hernandez, GALDINO - Reason: Patient/family refused)1631 (Given - Provider: Kanika Hernandez, GALDINO) 1040 ([facility] Hold - Provider: Automatic Transfer Provider - Reason: Unreviewed Transfer Orders)1200 ([facility] Unhold - Provider: Automatic Transfer Provider)1200 ([facility] Hold - Provider: User Epic - Reason: Unreviewed Transfer Orders)1434 ([facility] Unhold - Provider: User Epic) heparin 1,000 unit/mL injection (CANCELED) As needed, Starting on Sun02/03/25 at 1335, Intra-op/procedure 1335 (Given - Provider: Merlin Lazcano, RN)1340 (Given - Provider: Merlin Lazcano, RN) ipratropium-albuteroL (DUONEB) 0.5-3 mg (2.5 mg base)/3 mL nebulizer solution 3 mL 3 mL, Nebulization, Every 6 hours PRN, wheezing, Starting on Sun01/31/25 at 1930 1040 ([facility] Hold - Provider: Automatic Transfer Provider - Reason: Unreviewed Transfer Orders)1200 ([facility] Unhold - Provider: Automatic Transfer Provider)1200 ([facility] Hold - Provider: User Epic - Reason: Unreviewed Transfer Orders)1434 ([facility] Unhold - Provider: User Epic) lidocaine (XYLOCAINE) 2% injection (CANCELED) As needed, Starting on Sun02/03/25 at 1326, Intra-op/procedure 1326 (Given - Provider: Carlo Dawn MD)1330 (Given - Provider: Carlo Dawn MD) nitroglycerin infusion premix (COMPLETED) Intra-op continuous PRN, Starting on Sun02/03/25 at 1332, Intra-op/procedure 1332 (New Bag - Provider: Carlo Dawn MD)1345 (New Bag - Provider: Carlo Dawn MD) phenoL (CHLORASEPTIC) 1.4 % mouth spray 1 spray 1 spray, Mouth/Throat, Every 2 hour PRN, sore throat, may alternate with cepacol lozenges, Starting on Sun01/30/25 at 0352 1040 ([facility] Hold - Provider: Automatic Transfer Provider - Reason: Unreviewed Transfer Orders)1200 ([facility] Unhold - Provider: Automatic Transfer Provider)1200 ([facility] Hold - Provider: User Epic - Reason: Unreviewed Transfer Orders)1434 ([facility] Unhold - Provider: User Epic) polyethylene glycol packet (CANCELED) 17 g, Oral, Daily as needed, mild constipation, Starting on Jackelyn 01/29/25 at 2322, Dissolve and stir one packet of powder (17 g) in 4-8 oz of water or juice. 1040 ([facility] Hold - Provider: Automatic Transfer Provider - Reason: Unreviewed Transfer Orders)1200 ([facility] Unhold - Provider: Automatic Transfer Provider)1200 ([facility] Hold - Provider: User Epic - Reason: Unreviewed Transfer Orders)1434 ([facility] Unhold - Provider: User Epic)1627 (Given - Provider: Carol Ann Yates, GALDINO) simethicone (MYLICON) 40 mg/0.6 mL oral solution 40 mg 40 mg, Oral, Every 6 hours PRN, gas, Starting on Sun02/03/25 at 1855 2003 (Given - Provider: Cathie He, GALDINO) sodium chloride (NS) 0.9 % syringe flush 3 mL 3 mL, Intravenous, As needed, line care, Starting on Sun02/02/25 at 0854, Per Institutional IV Line Care Policy. 1040 ([facility] Hold - Provider: Automatic Transfer Provider - Reason: Unreviewed Transfer Orders)1200 ([facility] Unhold - Provider: Automatic Transfer Provider)1200 ([facility] Hold - Provider: User Epic - Reason: Unreviewed Transfer Orders)1434 ([facility] Unhold - Provider: User Epic) sodium chloride (OCEAN) 0.65 % nasal spray 1 spray 1 spray, Each Nare, As needed, irritation, Starting on 02/01/25 at 0523 1040 ([facility] Hold - Provider: Automatic Transfer Provider - Reason: Unreviewed Transfer Orders)1200 ([facility] Unhold - Provider: Automatic Transfer Provider)1200 ([facility] Hold - Provider: User Epic - Reason: Unreviewed Transfer Orders)1434 ([facility] Unhold - Provider: User Epic) sore throat (CEPACOL) lozenge 1 lozenge 1 lozenge, Mouth/Throat, 3 times daily PRN, other (free text field), cough/sore throat may alternate with phenol spray for sore throat, Starting on 01/30/25 at 0351 0918 (Given - Provider: Kanika Hernandez RN) 1040 (APR Hold - Provider: Automatic Transfer Provider - Reason: Unreviewed Transfer Orders)1200 (APR Unhold - Provider: Automatic Transfer Provider)1200 (APR Hold - Provider: User Epic - Reason: Unreviewed Transfer Orders)1434 (APR Unhold - Provider: User Epic) documented in this encounter Additional Health Concerns Infection Onset Date Last Indicated Resolved Time Resp-Risk 01/29/2025 01/29/2025 01/29/2025 9:20 PM EST Influenza A 01/29/2025 01/29/2025 02/05/2025 7:06 PM EST documented as of this encounter Care Teams Corporate Communications Specialist Relationship Specialty Start Date End Date Baldomero Roy PA [address] [place] [address] PCP - General Physician Communications Tech 06/07/24 02/03/25 documented as of this encounter Additional Source Comments The information contained in this document represents components of the legal health record. It is not the complete legal health record.[facility]
--- NOTE | 2025-02-06 10:37 | HO.NEPHOV_ITS ---
Vital Signs 02/06/25 10:41 Height 5 ft 8 in Weight 149 lb 6 oz BMI 22.7 BP 160/90 H Blood Pressure Location Rt brachial Position Sitting Pulse 117 H Pulse Source Pulse Oximeter Pulse Oximetry (%) 97 Oxygen Delivery Method Room Air Intake Visit Reasons: 3 wks f/u w/ labs-Conf Golf Technician Required: No Accompanied by: Self / Same As Patient Allergies lisinopril Allergy (Severe, Verified 02/06/25 10:40) Unknown codeine Allergy (Intermediate, Verified 02/06/25 10:40) Nausea latex Allergy (Intermediate, Verified 02/06/25 10:40) Rash hydrochlorothiazide Allergy (Unknown, Verified 02/06/25 10:40) Unknown morphine Allergy (Unknown, Verified 02/06/25 10:40) Nausea SHAYY Inhibitors Adverse Reaction (Unknown, Verified 02/06/25 10:40) Unknown HPI Comments Details: Yecenia is a 75-year-old female with a PMH significant for?CAD s/p stenting 2019, hx of DVT with pulmonary embolism 2017 on Eliquis, HTN, HLD, CKD 3, chronic anemia requiring transfusions in the past, diet-controlled diabetes type 2, osteoarthritis, and chronic lower leg edema was seen for F/U today. She recently had JHONY on CKD due to HF and was in [facility]. Her medications were changed and she underwent cardiac catheterization. She was told she needs a mitral valve clip. She denies shortness of breath, chest pain, orthopnea or urinary or uremic symptoms. [facility] Medical History Graves disease CAD (coronary artery disease) Osteoarthritis Hx of transfusion of packed red blood cells Diet-controlled diabetes mellitus Pulmonary embolism DVT (deep venous thrombosis) Anemia in chronic kidney disease Hypertension CKD (chronic kidney disease) stage 3, GFR 30-59 ml/min Surgical History History of tooth extraction Hx of heart artery stent History of partial hysterectomy Family History Maternal Grandfather Stomach cancer Social History Household Members: None Housing: Apartment Do you presently have visiting nurse or other home services: No Alcohol intake: never Patient Tobacco Use Status: Former Tobacco user Tobacco use type: Cigarette e-Cigarette/Vaping Use: Never Used Second Hand Smoke Exposure: Yes service: No Current occupational status: retired Cognitive needs: Yes (Walker, cane) Hearing needs: Yes Vision needs: No Review of Systems Const All systems reviewed & are unremarkable except as noted in HPI and below Physical Exam Vital Signs: Last Vital Signs Pulse 117 H 02/06/25 10:41 BP 160/90 H 02/06/25 10:41 Pulse Ox 97 02/06/25 10:41 Oxygen Delivery Method Room Air 02/06/25 10:41 BMI result Body Mass Index 22.7 Const General: comfortable and no acute distress Orientation/consciousness: patient oriented x3 HEENT Head: Yes normocephalic Mouth: Normal oral and palatal mucosa present Eyes EOM: EOMs intact bilaterally Neck Neck: Yes supple Resp Auscultation: clear to auscultation bilaterally Cardio Jugular venous distension: no JVD Rate: regular rate Heart sounds: Murmur heart sound present GI Palpation (GI): Soft to palpation Auscultation: normal bowel sounds General: Yes no CVA tenderness Back/Spine/Pelvis Back: no CVA tenderness Skin General skin exam: no rashes or lesions noted Neuro General: patient oriented x3 and moves all extremities Extrem General: Yes no pedal edema Office Meds epoetin walt-epbx 10,000 unit/mL injection solution Performing Provider: London Boyer MD Performing Location: [facility] Administered by: London Boyer MD on 02/06/25 11:07 Dose Route Admin Location Dispensed Lot Number Expiration Date [facility] Cellophane Bag Machine Operator 20,000 unit subcut RUE 2 mL [id number] 03/22/26 8614-8025-02 [employer] Total Dispensed Waste 2 mL 0 % Results Reviewed Nephrology Results: Hgb, (12.0-16.0) 10.4 g/dl L Today WBC, (4.8-10.8) 8.3 X10*3/uL Today Plt Count, (160-400) 440 X10*3/uL H Δ Today Sodium, (135-145) 141 mmol/L Today Potassium, (3.3-5.1) 3.7 mmol/L Today Chloride, (96-108) 95 mmol/L L Today Carbon Dioxide, (22-29) 24 mmol/L Today BUN, (9-16) 107 mg/dL H Today Creatinine, (0.5-1.4) 5.28 mg/dL H* Today Calcium, (8.4-10.2) 9.5 mg/dL 01/14/25 Phosphorus, (2.7-4.5) 4.5 mg/dL 12/03/24 PTH Intact, (8.7-77.1) 322.1 pg/mL H 10/29/24 Assessment & Plan Assessment & Plan (1) Anemia in chronic kidney disease: Code(s): N18.9 - Chronic kidney disease, unspecified; D63.1 - Anemia in chronic kidney disease Category: Medical Qualifiers: Chronic kidney disease stage: stage 3 (moderate) Chronic kidney disease stage 3 subtype: stage 3b (GFR 30-44) Qualified Code(s): N18.32 - Chronic kidney disease, stage 3b; D63.1 - Anemia in chronic kidney disease (2) Hypertension: Code(s): I10 - Essential (primary) hypertension Category: Medical Qualifiers: Hypertension type: primary hypertension Qualified Code(s): I10 - Essential (primary) hypertension (3) CKD stage 4 secondary to hypertension: Code(s): I12.9 - Hypertensive chronic kidney disease with stage 1 through stage 4 chronic kidney disease, or unspecified chronic kidney disease; N18.4 - Chronic kidney disease, stage 4 (severe) Category: Medical (4) JHONY (acute kidney injury): Code(s): N17.9 - Acute kidney failure, unspecified Category: Medical Plan Yecenia has chronic kidney disease and longstanding hypertension. 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 I held her Jardiance and Torsemide. 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 She is known to have coronary artery disease and has undergone angioplasty and stenting. She had an upper endoscopy, colonoscopy and sigmoidoscopy. She has seen GI . I administered Procrit 20 K Units in the office today. She needs to maintain low-sodium & K diet. Follow up blood work ordered in 1 week. Answered all questions. Orders: Orders AMB Epoetin Injection Practice Supplied Today D63.1 - Anemia in chronic kidney disease, N18.32 - Chronic kidney disease, stage 3b Electrolytes 3 Weeks D63.1 - Anemia in chronic kidney disease, I10 - Essential (primary) hypertension, I12.9 - Hypertensive chronic kidney disease with stage 1 through stage 4 chronic kidney disease, or unspecified chronic kidney disease, N18.32 - Chronic kidney disease, stage 3b, N18.4 - Chronic kidney disease, stage 4 (severe) Blood Urea Nitrogen 3 Weeks D63.1 - Anemia in chronic kidney disease, I10 - Essential (primary) hypertension, I12.9 - Hypertensive chronic kidney disease with stage 1 through stage 4 chronic kidney disease, or unspecified chronic kidney disease, N18.32 - Chronic kidney disease, stage 3b, N18.4 - Chronic kidney disease, stage 4 (severe) Creatinine 3 Weeks D63.1 - Anemia in chronic kidney disease, I10 - Essential (primary) hypertension, I12.9 - Hypertensive chronic kidney disease with stage 1 through stage 4 chronic kidney disease, or unspecified chronic kidney disease, N18.32 - Chronic kidney disease, stage 3b, N18.4 - Chronic kidney disease, stage 4 (severe) Blood Urea Nitrogen 1 Week N17.9 - Acute kidney failure, unspecified Complete Blood Count Auto Diff 3 Weeks D63.1 - Anemia in chronic kidney disease, I10 - Essential (primary) hypertension, I12.9 - Hypertensive chronic kidney disease with stage 1 through stage 4 chronic kidney disease, or unspecified chronic kidney disease, N18.32 - Chronic kidney disease, stage 3b, N18.4 - Chronic kidney disease, stage 4 (severe) Calcium 3 Weeks D63.1 - Anemia in chronic kidney disease, I10 - Essential (primary) hypertension, I12.9 - Hypertensive chronic kidney disease with stage 1 through stage 4 chronic kidney disease, or unspecified chronic kidney disease, N18.32 - Chronic kidney disease, stage 3b, N18.4 - Chronic kidney disease, stage 4 (severe) Creatinine 1 Week N17.9 - Acute kidney failure, unspecified Electrolytes 1 Week N17.9 - Acute kidney failure, unspecified Medications: Discontinued metoprolol tartrate Discontinued Reason: Doctor's Order 50 mg PO BID 90 days 180 tabs 4RF Coding Level of Care Code Est Pt Level 4 (86340) Diagnoses Anemia in stage 3b chronic kidney disease N18.32; D63.1 Chronic kidney disease stage: stage 3 (moderate) Chronic kidney disease stage 3 subtype: stage 3b (GFR 30-44) Primary hypertension I10 Hypertension type: primary hypertension CKD stage 4 secondary to hypertension I12.9; N18.4 JHONY (acute kidney injury) N17.9
[2025-02-06 10:41] VITALS: BP 160/90; PULSE 117; O2SAT 97; BMI 22.7
--- OUTSIDE RECORDS SUMMARY | 2025-02-06 11:54 | XMS_ITS | Encounter Summary ---
Author Organization [facility] Address [address] [place] [address] Phone Care Team Providers Care Safety Belt Installer Name Role Phone Marychuy Ríos MD Primary Care Provider Baldomero Roy Primary Care Provider + London Boyer MD Primary Care Pro vider Encounter Details Date Type Department Care Team (Late st Contact Info) Description 12/13/2022 Ancillary Orders [facility] [address] [place] [address] Raphael Graf MD [address] [place] [address] Orthopedics & Sports Medicine, [place] [address] [email or web address] Pain Social History Tobacco Use Types Packs/Day [...] Description 04/07/2025 12:00 PM EST Office Visit [facility] [address] [place] [address] Naun Duran DO [address] [place] [address] [email or web address] documented as of this encounter Results * [...] of the lateral joint space with probable nrmp-eo-dhbv contact. Also on the right is arterial [...] narrowing ofthe lateral joint space with probable cmje-jl-sywn contact. Also on theright is arterial vascular calcification in the posterior soft tissues.Mild to moderate hypertrophic changes are identified at the tibial spinesand patella. IMPRESSION: No fracture or dislocation. Lateral joint space narrowing bilaterally right much greater than left. Raphael Graf MD IMG XR LOWER EXTREMITY Final Result documented in this encounter Visit Diagnoses Diagnosis Pain Generalized pain Pain Generalized pain documented in this encounter Additional Health Concerns Infection Onset Date Last Indicated Resolved Time Resp-Risk Comment:Per note documentation 12/29/2024 12/29/2024 6:41 AM EST Resp-Risk 01/29/2025 01/29/2025 01/29/2025 9:20 PM EST Influenza A 01/29/2025 01/29/2025 02/05/2025 7:06 PM EST documented as of this encounter Care Teams Safety Belt Installer Relationship Specialty Start Date End Date Marychuy Ríos MD [address] [address] PCP - General Internal Medicine 11/30/20 06/06/24 Baldomero Roy PA [address] [place] [address] PCP - General Physician Supervisor Pigment Making 06/07/24 02/03/25 London Boyer MD [address] [place] [address] PCP - General Nephrology 02/04/25 documented as of this encounter Additional Source Comments The information contained in this document represents components of the legal health record. It is not the complete legal health record.[facility]
--- OUTSIDE RECORDS SUMMARY | 2025-02-06 11:54 | XMS_ITS | Encounter Summary ---
Author Organization [facility] Address [address] [facility] [address] [place] [address] Phone Care Team Providers Care Smoke Jumper Supervisor Name Role Phone Baldomero Roy Primary Care Provider + London Boyer MD Primary Care Pro vider Encounter Details Date Type Department Care Team (Late st Contact Info) Description 02/02/2025 Procedure Pass [facility] [address] [place] [address] Social History Tobacco Use Types Packs/Day Years [...] 3:59 PM EST Sexual Orientation Straight 04/15/2019 3 :59 PM EST documented as of this encounter Plan of Treatment Upcoming Encounters Date Type Department Care Team (Late st Contact Info) Description 04/07/2025 12:00 PM EST Office Visit [facility] [address] [place] [address] Naun Duran DO [address] [place] [address] documented as of this encounter Visit Diagnoses Not on filedocumented in this encounter Additional Health Concerns Infection Onset Date Last Indicated Resolved Time Influenza A 01/29/2025 01/29/2025 02/05/2025 7:06 PM EST documented as of this encounter Care Teams Smoke Jumper Supervisor Relationship Specialty Start Date End Date Baldomero Roy PA [address] [place] [address] PCP - General Physician Infrastructure Engineer 06/07/24 02/03/25 London Boyer MD [address] [place] [phone] PCP - General Nephrology 02/04/25 documented as of this encounter Additional Source Comments The information contained in this document represents components of the legal health record. It is not the complete legal health record.[facility]
--- OUTSIDE RECORDS SUMMARY | 2025-02-06 11:54 | XMS_ITS | Encounter Summary ---
Author Organization [facility] Address [address] [facility] [address] [place] [address] Phone Care Team Providers Care Band Cutting Machine Operator Name Role Phone Bladomero Roy Primary Care Provider + London Boyer MD Primary Care Pro vider Encounter Details Date Type Department Care Team (Late st Contact Info) Description 02/03/2025 Procedure Pass [facility] [address] [place] [address] Social History Tobacco Use Types Packs/Day Years [...] Visit [facility] [address] [place] [address] Naun Duran DO [address] [place] [address] documented as of this encounter Visit Diagnoses Not on filedocumented in this encounter Additional Health Concerns Infection Onset Date Last Indicated Resolved Time Influenza A 01/29/2025 01/29/2025 02/05/2025 7:06 PM EST documented as of this encounter Care Teams Band Cutting Machine Operator Relationship Specialty Start Date End Date Baldomero Roy PA [address] [place] [address] PCP - General Physician Programs Manager 06/07/24 02/03/25 London Boyer MD [address] [place] [address] PCP - General Nephrology 02/04/25 documented as of this encounter Additional Source Comments The information contained in this document represents components of the legal health record. It is not the complete legal health record.[facility]
--- OUTSIDE RECORDS SUMMARY | 2025-02-06 11:54 | XMS_ITS | Encounter Summary ---
Author Organization [facility] Address [address] [facility] [address] [place] [phone] Phone Care Team Providers Care Flight Attendant/Inflight Manager Name Role Phone Baldomero Roy Primary Care Provider + London Boyer MD Primary Care Pro vider Encounter Details Date Type Department Care Team (Late st Contact Info) Description 06/08/2024 Procedure Pass [facility] [address] [place] [address] Social History Tobacco Use Types Packs/Day Years [...] Description 04/07/2025 12:00 PM EST Office Visit [facility] [address] [place] [address] Naun Duran DO [address] [place] [address] documented as of this encounter Visit Diagnoses Not on filedocumented in this encounter Additional Health Concerns Infection Onset Date Last Indicated Resolved Time Resp-Risk Comment:Per note documentation 12/29/2024 12/29/2024 6:41 AM EST Resp-Risk 01/29/2025 01/29/2025 01/29/2025 9:20 PM EST Influenza A 01/29/2025 01/29/2025 02/05/2025 7:06 PM EST documented as of this encounter Care Teams Flight Attendant/Inflight Manager Relationship Specialty Start Date End Date Baldomero Roy PA [address] [place] [address] PCP - General Physician Flame Planer 06/07/24 02/03/25 London Boyer MD [address] [place] [address] PCP - General Nephrology 02/04/25 documented as of this encounter Additional Source Comments The information contained in this document represents components of the legal health record. It is not the complete legal health record.[facility]
--- OUTSIDE RECORDS SUMMARY | 2025-02-06 11:54 | XMS_ITS | Clinical Summary ---
Author Organization [facility] Address [address] [address] Phone Care Team Providers Care Insurance Office Manager Name Role Phone London Boyer MD Primary Care Pro vider Allergies Active Allergy Reactions Criticality Noted Date Comments Allerg Xt,D.Farinae-D.Pteronys 11/15/2022 Codeine Unknown 04/08/2020 Hydralazine Erythema Low 12/30/2024 Drug induced lupus Lisinopril 02/03/2025 Nsaids (Non-Steroidal Anti-Inflammatory Drug) Unknown,Other (See Comments) 07/27/2020 Medications vitamin B complex-folic acid (B COMPLEX 1, WITH FOLIC ACID,) 0.4 mg Tab Take 1 tablet by mouth. Active magnesium oxide 200 mg magnesium Chew Activ e apixaban (ELIQUIS) 2.5 mg Take 2.5 mg by mouth 2 (two) times a day. Active cloNIDine HCL (CATAPRES) 0.1 MG tablet Take 0.1 mg by mouth every 8 (eight) hours. Active predniSONE (DELTASONE) 5 MG tablet Take 5 mg by mouth daily. Active isosorbide dinitrate (ISORDIL) 40 MG immediate release tablet Take 1 tablet (40 mg total) by mouth every 8 (eight) hours. 270 tablet 2 12/17/202 5 Active amLODIPine (NORVASC) 5 MG tablet Take 1 tablet (5 mg total) by mouth daily. 30 tablet 2 5 Active empagliflozin (JARDIANCE) 10 mg tablet Take 1 tablet (10 mg total) by mouth daily. 30 tablet 2 5 Active torsemide 60 mg Tab Take 60 mg by mouth daily. 30 tablet 2 5 Active ascorbic seoe-wxfoziwl-i in (VITAMIN C ENERGY BOOSTER) 1,000 mg PwEP 02/05/20 Discontinu ed(Stop Taking at Discharge) metoprolol tartrate (LOPRESSOR) 50 MG tablet Take 50 mg by mouth 2 (two) times a day. 02/05/20 Discontinu ed(Stop Taking at Discharge) furosemide (LASIX) 40 MG tablet Take 40 mg by mouth daily. 02/05/20 Discontinu ed(Stop Taking at Discharge) oxyCODONE 5 MG immediate release tablet Take 5 mg by mouth every 8 (eight) hours as needed for pain (specific location in comments). Partial fill ok 02/05/20 Discontinu ed(Stop Taking at Discharge) cefpodoxime (VANTIN) 200 MG tablet Take 1 tablet (200 mg total) by mouth daily for 1 dose. 1 tablet 5 01/31/20 Discontinu ed(No longer taking) isosorbide dinitrate (ISORDIL) 30 MG immediate release tablet Take 1 tablet (30 mg total) by mouth 3 (three) times a day. 90 tablet 2 5 02/05/20 Discontinu ed(Stop Taking at Discharge) ezetimibe (ZETIA) 10 mg tablet Take 10 mg by mouth daily. 01/31/20 Discontinu ed(No longer taking) folic acid (FOLVITE) 1 MG tablet Take 1 mg by mouth daily. 01/31/20 Discontinu ed(No CancelRX) hydrALAZINE (APRESOLINE) 10 MG tablet Take 10 mg by mouth 3 (three) times a day. 02/05/20 Discontinu ed(Stop Taking at Discharge) Active Problems Problem Noted Date Diagnosed Date Mitral regurgitation 02/03/2025 Influenza A 01/29/2025 Hypertensive urgency 12/31/2024 Respiratory [...] -Underlying history of CHF, prior history of CAD/TN, last admission 05/2024 with some presentation similar [...] -Underlying history of CHF, prior history of CAD/TN, last admission 05/2024 with some presentation similar [...] was significantly at 7410. -Underlying history of CAD/TN with prior PCI in 2018, ASA was discontinued on prior admission due [...] was significantly at 7410. -Underlying history of CAD/TN with prior PCI in 2019, ASA was [...] was significantly at 7410. -Underlying history of CAD/TN with prior PCI in 2018, ASA was discontinued on prior admission due [...] patient she receives Retacrit monthly by her bread wrapper due to persistent anemia. -Hemoglobin currently 8.1 [...] patient she receives Retacrit monthly by her bread wrapper due to persistent anemia. -Hemoglobin currently 8.7 [...] 7.8 today relatively stable no active bleeding [facility] records indicate that she had EGD on [...] kidn ey disease 06/07/2024 Assessment & Plan (02/04/2025 8:57 AM EST): - Renal function initially improved post diuresis [...] nephrology perspective she has established relationship with bread wrapper Dr. Anaya in [place], I will make sure she has follow-up with them with blood chemistries within a week - Patient clearly stated would like to avoid any form of dialysis in the future which she is discussed with her outpatient bread wrapper. Assessment & Plan (02/03/2025 10:05 AM EST): - Renal function slowly improving diuresed weight is down 254 pounds 11-13 pound lower since admission consider transition to torsemide 60 mg p.o. twice daily consider adding metolazone 5 mg p.o., twice weekly continue with empagliflozin. -Vasodilators as per actuarial clerk recommendation, may potentially benefit from heart failure program evaluation and mitral valve procedure will defer to actuarial clerk expertise. Hopefully able to complete workup for MitraClip intervention -Unfortunately due to JHONY would hold off on rest of GDMT agents -Trend hemoglobin check iron stores replete as needed May also benefit from CLARI. - strict I/Os, daily weights, please avoid nephrotoxins (IV contrast, NSAIDs) - please dose reduce antibiotics/medications as appropriate for eGFR - Patient has established relationship with bread wrapper Dr. Anaya in [place], - Patient clearly stated would like to avoid any form of dialysis in the future which she is discussed with her outpatient bread wrapper. Assessment & Plan (02/02/2025 10:26 AM EST): - Renal function slowly improving diuresed weight is down 254 pounds 11-13 pound lower since admission consider transition to torsemide 60 mg p.o. twice daily -Vasodilators as per actuarial clerk recommendation, may potentially benefit from heart failure program evaluation and mitral valve procedure will defer to actuarial clerk expertise. Hopefully able to complete workup for [...] eGFR - Patient has established relationship with bread wrapper Dr. Anaya in [place], - Patient clearly stated would like to avoid any form of dialysis in the future which she is discussed with her outpatient bread wrapper. Assessment & Plan (02/01/2025 8:14 AM EST): -Continue with diuretic drip furosemide 10 mg/h replete K and mag as needed -Potentially may use distal acting diuretic/metolazone 5 mg p.o. x 1 to further accentuate diuresis as sequential nephron blockade -Vasodilators as per actuarial clerk recommendation, may potentially benefit from heart failure program evaluation and mitral valve procedure will defer to actuarial clerk expertise. Hopefully able to complete workup for [...] eGFR - Patient has established relationship with bread wrapper Dr. Anaya in [place], - Patient clearly stated would like to avoid any form of dialysis in the future which she is discussed with her outpatient bread wrapper. Assessment & Plan (01/31/2025 8:18 AM EST): -Continue to diurese, If suboptimal response suggest to start a diuretic drip furosemide 10 mg/h -Potentially may use distal acting diuretic/metolazone 5 mg p.o. x 1 to further accentuate diuresis as sequential nephron blockade -Vasodilators as per actuarial clerk recommendation, may potentially benefit from heart failure program evaluation and mitral valve procedure will defer to actuarial clerk expertise. -Unfortunately due to JHONY would hold off on GDMT agents -Low threshold to start SGLT2 inhibitor -Trend hemoglobin check iron stores - strict I/Os, daily weights, please avoid nephrotoxins (IV contrast, NSAIDs) - please dose reduce antibiotics/medications as appropriate for eGFR - Patient has established relationship with bread wrapper Dr. Anaya in [place], - Patient clearly stated would like to avoid any form of dialysis in the future which she is discussed with her outpatient bread wrapper. Assessment & Plan (2025 10:15 AM EST): [...] -renally dose all meds Hypertensive emergency 06/07/2024 Assessment & Plan (02/04/2025 8:57 AM EST): - Blood pressure is reasonable on clonidine, metoprolol could consider addition of hydralazine if cardiology agrees - If being discharged could consider Doppler renal arteries as an outpatient follow-up with outpatient bread wrapper and actuarial clerk. Assessment & Plan (02/03/2025 10:05 AM EST): - Blood pressure is reasonable on clonidine, metoprolol and nifedipine. - Unclear if she shad a Doppler renal artery in the past If she is still in house on Sunday could rule out PATTI while inpatient Assessment & Plan (02/02/2025 10:12 AM EST): -Unclear if she shad a Doppler renal artery in the past If she is still in house on Sunday could rule out PATTI while inpatient Assessment & Plan (02/01/2025 8:14 AM EST): -Unclear if she shad a Doppler renal artery in the past If she is still in house on Sunday could rule out PATTI while inpatient Assessment & Plan (01/31/2025 8:18 AM EST): -Unclear if she shad a Doppler renal artery in the past If she is still in house on Sunday could rule out PATTI while inpatient -Patient developed hydralazine induced SLE deferred suggest to keep current approach be cautious with combination of beta-nichelle and clonidine, if need be may add nifedipine XL 30 mg daily (which can be uptitrated) Flash pulmonary edema 06/07/2024 Osteoarthritis of right knee 06/07/2024 Acute respiratory failure with hypoxia and hyper capnia 06/07/2024 Assessment & Plan (12/30/2024 12:15 AM [...] has had some unclear recommendations from her PCP/actuarial clerk on whether or not to continue this [...] elevated initiated CAP Coverage with ceftriaxone azithromycin. History of pulmonary embolism 10/19/2016 Overview (01/29/2025): 2017 Encounters Date Type Department Care Team Description 02/06/2025 Home [facility] Visit [facility] [address] [place] [address] Sophia Hernandez RN CASE COMMUNICATION 02/03/2025 11:00 AM EST - 02/03/2025 12:20 PM EST [facility] [address] [place] [address] Yomi Dawn MD Right and Left Heart Catheterization with possible LVGRAM 02/03/2025 10:55 AM EST Anesthesia Event [facility] [address] [place] [address] Tiffanie Cao MD 02/03/2025 Procedure Pass [facility] [address] [place] [address] 02/02/2025 Procedure Pass [facility] [address] [place] [address] 02/01/2025 Orders Only [facility] [address] [place] [id number] Homehealth, Armida Ross MD 01/30/2025 Home Care Visit [facility] [address] [place] [address] Sophia Hernandez, RN CASE COMMUNICATION 01/29/2025 7:55 PM EST Ancillary Procedure [facility] [address] [place] [address] Montrell Munoz MD 01/29/2025 7:53 PM EST - 02/04/2025 12:47 PM EST Hospital Encounter [facility] [address] [place] [id number] Montrell Munoz MD Zaman, Tonbira S, MD Lipkin-Moore, Erik Bull MD Discharge Disposition: Home or Self Care 01/19/2025 Orders Only [facility] [address] [place] [address] Homehealth, Interface MD Cody 01/07/2025 Home Care Visit [facility] [address] [place] [address] Sophia Hernandez RN NON ADMIT HOME HEALTH VISIT 01/05/2025 Home Care Visit [facility] [address] [place] [address] Sophia Hernandez, RN TELEPHONE ENCOUNTER 01/05/2025 Home Care Visit [facility] [address] [place] [address] Sophia Hernandez RN TELEPHONE ENCOUNTER 01/04/2025 Home Care Visit [facility] [address] [place] [address] Angella Wen, GALDINO CASE COMMUNICATION 12/30/2024 Orders Only [facility] [address] [place] [address] Homehealth, Interface MD Cody 12/29/2024 9:25 AM EST - 01/02/2025 4:34 PM EST Hospital Encounter [facility] [address] [place] [address] Jose Orellana MD Grachev, Maksim, DO McCracken, Helena C, Pranay Washington MD Israeli, Diana A, DO Barbosa-Angles, Brianna R, DO, MPH Discharge Disposition: Home-Health Care [facility] 12/29/2024 Procedure Pass [facility] [address] [place] [address] from Last 3 Months Social History Tobacco [...] Mass Index 23.87 01/29/2025 11:30 PM EST Plan of Treatment Upcoming Encounters Date Type Department Care Team (Late st Contact Info) Description 04/07/2025 12:00 PM EST Office Visit [facility] [address] [place] [address] Naun Duran, [address] [place] [address] [email or web address] Health Maintenance Due Date Last Done Comments [...] INFLUENZA VACCINE (#1) 2024 COVID-19 VACCINE ( - 2024- season) 2024 03/22/2022, 02/24/2021, 06/02/2020, Additional history exists HEMOGLOBIN A1C 06/30/2025 12/31/2024 CREATININE LEVEL 02/04/2026 02/04/2025, , 02/02/2025, Additional history exists COLONOSCOPY 06/12/2034 06/12/2024 COLORECTAL CANCER SCREENING 06/12/2034 SMOKING STATUS SCREENING (Once After 26 Yrs) Completed 01/29/2025 HEPATITIS A VACCINES Aged Out No long [...] AND DIFFERENTIAL Routine 02/04/2025 5:07 AM EST BASIC METABOLIC PANEL (BMP) Routine 02/04/2025 5:07 AM EST CORTISOL Routine 02/04/2025 5:07 AM EST XR ABDOMEN SERIES SUPINE WITH DECUBITIS/ERECT AND SINGLE VIEW CHEST STAT 02/03/2025 6:45 PM EST RIGHT AND LEFT HEART CATHETERIZATION WITH POSSIBLE LVGRAM Routine 02/03/2025 1:48 PM EST Acute on chronic congestive heart failure, unspecified heart failure type POCT VENOUS BLOOD GAS Routine 02/03/2025 1:40 PM EST POCT ARTERIAL BLOOD GAS Routine 02/03/2025 1:40 PM EST QUEENIE COMP W/ COLOR [...] PANEL (BMP) Routine 02/02/2025 4:17 AM EST CBC AND DIFFERENTIAL Routine 02/02/2025 4:17 AM EST PHOSPHORUS Timed 02/01/2025 3:41 PM EST MAGNESIUM Timed 02/01/2025 3:41 PM EST BASIC METABOLIC PANEL (BMP) Timed 02/01/2025 3:41 PM EST CBC AND DIFFERENTIAL Routine 02/01/2025 4:23 AM EST PHOSPHORUS Routine 02/01/2025 4:23 AM EST MAGNESIUM Routine 02/01/2025 4:23 AM EST BASIC METABOLIC PANEL (BMP) Routine 02/01/2025 4:23 AM EST CBC AND DIFFERENTIAL Routine 02/01/2025 4:23 AM EST ECG 12-LEAD STAT 01/31/2025 2:21 PM EST TROPONIN STAT 01/31/2025 2:10 PM EST CBC AND DIFFERENTIAL Routine 01/31/2025 5:13 AM EST COMPREHENSIVE METABOLIC PANEL (CMP) Routine 01/31/2025 5:13 AM EST C-REACTIVE PROTEIN (CRP) Routine 01/31/2025 5:13 AM EST TSH WITH REFLEX Routine 01/31/2025 5:13 AM EST NT-PROBNP Routine 01/31/2025 5:13 AM EST SEDIMENTATION RATE (ESR) Routine 01/31/2025 5:13 AM EST IONIZED CALCIUM Routine 01/31/2025 5:13 AM EST PHOSPHORUS Routine 01/31/2025 5:13 AM EST MAGNESIUM Routine 01/31/2025 5:13 AM EST CBC AND DIFFERENTIAL Routine 01/31/2025 5:13 AM EST CBC AND [...] PANEL (BMP) Timed 01/30/2025 4:17 AM EST CBC AND DIFFERENTIAL Timed 01/30/2025 4:17 AM EST MRSA PCR SCREEN Routine 01/30/2025 4:02 AM EST LACTATE (BLOOD GAS) STAT 01/29/2025 11:08 PM EST URINE SEDIMENT STAT 01/29/2025 9:51 PM EST URINALYSIS WITH REFLEX TO URINE CULTURE STAT 01/29/2025 9:51 PM EST VENOUS BLOOD GAS STAT 01/29/2025 9:05 PM EST TROPONIN STAT 01/29/2025 9:05 PM EST SARS-COV-2, INFLUENZA A/B, PCR HANNAH STAT 01/29/2025 8:43 PM EST COVID PANDEMIC RESPIRATORY VIRAL ORDER (PRO) STAT 01/29/2025 8:43 PM EST LAB ADD-ON STAT 01/29/2025 8:26 PM EST XR CHEST PORTABLE Timed 01/29/2025 8:1 5 PM EST ECG 12-LEAD STAT 01/29/2025 8:15 PM EST PT-INR STAT 01/29/2025 8:10 PM EST LFTS (HEPATIC PANEL) STAT 01/29/2025 8:05 PM EST LIPASE STAT 01/29/2025 8:05 PM EST LACTATE (BLOOD GAS) STAT 01/29/2025 8 :05 PM EST CBC AND DIFFERENTIAL STAT 01/29/2025 8:05 PM EST NT-PROBNP STAT 01/29/2025 8:05 PM EST TROPONIN STAT 01/29/2025 8:05 PM EST BASIC METABOLIC PANEL (BMP) STAT 01/29/2025 8:05 PM EST CBC AND DIFFERENTIAL STAT 01/29/2025 8:05 PM EST BLOOD CULTURE, ROUTINE STAT 5 8:05 PM EST BLOOD CULTURE, ROUTINE STAT 5 8:05 PM EST US BEDSIDE Routine 01/29/2025 7:51 PM EST US KIDNEY(S) AND BLADDER Required for discharge [...] Recently Relevant to Health Maintenance Results * (ABNORMAL) CBC and Differential (02/04/2025 5:07 AM EST) Only the most recent of11 resultswithin the time period is included. WBC 4.40 4.00 - 11.00 K/uL 02/04/2025 6:08 AM [facility] RBC 3.06(L) 4.00 - 5.20 M/uL 02/04/2025 6:08 AM [facility] Hemoglobin 8.5(L) 12.0 - 16.0 g/dL 02/04/2025 6:08 AM [facility] Hematocrit 28.8(L) 36.0 - 46.0 % 02/04/2025 6:08 AM [facility] MCV 94.1 80.0 - 100.0 fL 02/04/2025 6:08 AM [facility] MCH 27.8 27.0 - 31.0 pg 02/04/2025 6:08 AM [facility] MCHC 29.5(L) 32.0 - 36.0 g/dL 02/04/2025 6:08 AM [facility] MPV 9.9 8.4 - 12.0 fL 02/04/2025 6:08 AM [facility] RDW-CV 15.4(H) 11.5 - 14.5 % 02/04/2025 6:08 AM [facility] PLT 297 150 - 450 K/uL 02/04/2025 6:08 AM [facility] Neutrophils 50.0 % 02/04/2025 6:08 AM [facility] Lymphocytes 39.5 % 02/04/2025 6:08 AM [facility] Comment:Few atypical lymphoc ytes seen. Monocytes 8.9 % 02/04/2025 6:08 AM [facility] Eosinophils 0.7 % 02/04/2025 6:08 AM [facility] Basophils 0.2 % 02/04/2025 6:08 AM [facility] Imm Grans 0.7 % 02/04/2025 6:08 AM [facility] NRBC 0.0 <=0.0 /100 WBCs 02/04/2025 6:08 AM [facility] Absolute Neutrophils 2.20 1.92 - 7.60 K/uL 02/04/2025 6:08 AM [facility] Absolute Lymphocytes 1.74 0.72 - 4.10 K/uL 02/04/2025 6:08 AM [facility] Absolute Monocytes 0.39 0.16 - 1.10 K/uL 02/04/2025 6:08 AM [facility] Absolute Eosinophils 0.03 0.00 - 0.50 K/uL 02/04/2025 6:08 AM [facility] Absolute Basophils 0.01 0.00 - 0.15 K/uL 02/04/2025 6:08 AM [facility] Absolute Imm Grans 0.03 0.00 - 0.09 K/uL 02/04/2025 6:08 AM [facility] Absolute NRBC 0.00 <=0.00 K cells/uL 02/04/2025 6:08 AM [facility] Absolute Neutrophils 2.20 1.92 - 7.60 K/uL 02/04/2025 6:08 AM [facility] Comment:Automated cell count . Manual ANC may differ if performed. Diff Type Auto 02/04/2025 6:08 AM [facility] Blood (Blood) Venipuncture / Unknown 02/04/2025 5:07 AM EST 02/04/2025 5:12 AM EST us Christa Mcclure PA-C, MS LAB BLOOD BKR ORD ERABLES Final Result [facility] [address] [place] [address] * Cortisol (02/04/2025 5:07 AM EST) Cortisol 7.3 See comment ug/dL 02/04/2025 5:46 AM [facility] Comment: NORMALS: 8AM-12PM = 5-25 ug/dL [...] LAB BLOOD BKR ORD ERABLES Final Result [address] [address] * (ABNORMAL) Basic Metabolic Panel (BMP) (02/04/2025 5:07 AM EST) Only the most recent of12 resultswithin the time period is included. Sodium 141 136 - 145 mmol/L 02/04/2025 5:46 AM [facility] Potassium 4.3 3.4 - 5.1 mmol/L 02/04/2025 5:46 AM [facility] Chloride 96(L) 98 - 107 mmol/L 02/04/2025 5:46 AM [facility] CO2 27 20 - 31 mmol/L 02/04/2025 5:46 AM [facility] BUN 77(H) 6 - 23 mg/dL 02/04/2025 5:46 AM [facility] Creatinine 3.70(H) 0.50 - 1.00 mg/dL 02/04/2025 5:46 AM [facility] Glucose 127(H) 70 - 99 mg/dL 02/04/2025 5:46 AM [facility] Calcium 9.1 8.5 - 10.5 mg/dL 02/04/2025 5:46 AM [facility] eGFR 12(L) >59 mL/min/1.7 3m2 02/04/2025 5:46 AM EST [facility] Comment:Estimated glomerular filtration rate calculated using the CKD-EPI refit equation. Anion Gap 18(H) 3 - 17 mmol/L 02/04/2025 5:46 AM EST [facility] Blood (Blood) Venipuncture / Unknown 02/04/2025 5:07 AM EST 02/04/2025 5:12 AM EST us Christa Mcclure PA-C, MS LAB BLOOD BKR ORD ERABLES Final Result [facility] [address] [place] [address] * XR Abdomen Series Supine with [...] No acute soft tissue abnormality. Procedure Note Loi Lord MD - 02/03/2025 XR ABDOMEN SERIES SUPINE [...] 7.44(H) 7.30 - 7.40 02/05/2025 4:39 PM [facility] PCO2 44 38 - 50 mm[Hg] 02/05/2025 4:39 PM [facility] PO2 37 35 - 50 mm[Hg] 02/05/2025 4:39 PM [facility] Base Excess 5(H) 0 - 3 mmol/L 02/05/2025 4:39 PM [facility] sO2 72 60 - 85 % 02/05/2025 4:39 PM [facility] Bicarbonate 30 23 - 30 mmol/L 02/05/2025 4:39 PM [facility] Sodium 136 136 - 145 mmol/L 02/05/2025 4:39 PM [facility] Potassium 4.3 3.4 - 5.1 mmol/L 02/05/2025 4:39 PM EST [facility] Blood (Blood) 02/03/2025 1:4 0 PM EST 02/05/2025 4:39 PM EST Erik Parry MD LAB POCT DOCKED DEVICE UNSOLICTED RESULTS Final Result Performing Organization Address [facility]/ZIP Co de Phone Number [address] [address] * (ABNORMAL) POCT Arterial Blood Gas (02/03/2025 1:40 PM EST) Base Excess 5.0(H) 0 - 3 mmol/L 02/03/2025 2:08 PM EST [facility] SO2 72(L) 95 - 98 % 02/03/2025 2:08 PM [facility] Bicarbonate 30(H) 22 - 26 mmol/L 02/03/2025 2:08 PM [facility] Sodium 136 136 - 145 mmol/L 02/03/2025 2:08 PM [facility] Potassium 4.3 3.4 - 5.1 mmol/L 02/03/2025 2:08 PM [facility] Blood (Blood) 02/03/2025 1:4 0 PM EST 02/03/2025 2:08 PM EST us Erik Parry MD LAB POCT DOCKED DEVICE UNSOLICTED RESULTS Final Result Performing Organization Address [facility]/ZIP Co de Phone Number [address] [address] * QUEENIE COMP W/ COLOR FLOW AND [...] the medications administered, please refer to the [facility]. Meds reconciled and timeout performed and [...] appears normal. The interventricular septum appears normal. Yomi Dawn MD CV ECHO ORDERABLES Final Re sult * (ABNORMAL) Phosphorus (02/03/2025 4:25 AM EST) Only the most recent of10 resultswithin the time period is included. Phosphorus 4.9(H) 2.5 - 4.5 mg/dL 02/03/2025 5:09 AM EST [facility] Blood (Blood) Venipuncture / Unknown 02/03/2025 4:25 AM EST 02/03/2025 4:45 AM EST Ruddy Umaña [facility] LAB BLOOD BKR ORDERABLES Final Result Performing Organization Address [facility] Co de Phone Number [address] [address] * Magnesium (02/03/2025 4:25 AM EST) Only the most recent of11 resultswithin the time period is included. Pathologist [facility] Magnesium 2.0 1.7 - 2.6 mg/dL 02/03/2025 5:09 AM EST [facility] Blood (Blood) Venipuncture / Unknown 02/03/2025 4:25 AM EST 02/03/2025 4:45 AM EST Ruddy Umaña [employer] THER[employer] LAB BLOOD BKR ORDERABLES Final Result Performing Organization Address [facility] Co de Phone Number [address] [address] * ECG 12-LEAD (01/31/2025 2:21 PM EST) Only the most recent of4 resultswithin the time period is included. Ventricular Rate EKG/MIN 48 BPM [facility] Atrial Rate 48 BPM [facility] DC Interval 142 ms [facility] QRS Duration 78 ms [facility] QT Interval 588 ms [facility] QTC Interval 525 ms [facility] P [place] [facility] 58 degrees [facility] R Wave [facility] 25 degrees [facility] T Wave [facility] 184 degrees [facility] 01/31/2025 2:21 PM EST [...] Yomi Dawn ([id number]) on 02/02/2025 3:18:31 PM Ruddy Umaña CNP ECG ORDERABLES Final Res ult [facility] * (ABNORMAL) Troponin (01/31/2025 2:10 PM EST) Only the most recent of5 resultswithin the time period is included. Troponin-T HS Gen5 57(H) 0 - 9 ng/L 01/31/2025 2:38 PM EST [facility] Blood (Blood) Venipuncture / Unknown 01/31/2025 2:10 PM EST 01/31/2025 2:18 PM EST Ruddy Umaña CNP LAB BLOOD BKR ORDERABLES Final Result [address] [address] * (ABNORMAL) Comprehensive Metabolic Panel (CMP) (01/31/2025 5:13 AM EST) Only the most recent of2 resultswithin the time period is included. Sodium 143 136 - 145 mmol/L 01/31/2025 5:53 AM EST [facility] Potassium 4.1 3.4 - 5.1 mmol/L 01/31/2025 5:53 AM EST [facility] Chloride 109(H) 98 - 107 mmol/L 01/31/2025 5:53 AM EST [facility] CO2 22 20 - 31 mmol/L 01/31/2025 5:53 AM [facility] BUN 55(H) 6 - 23 mg/dL 01/31/2025 5:53 AM [facility] Creatinine 3.20(H) 0.50 - 1.00 mg/dL 01/31/2025 5:53 AM [facility] Glucose 122(H) 70 - 99 mg/dL 01/31/2025 5:53 AM [facility] Calcium 8.8 8.5 - 10.5 mg/dL 01/31/2025 5:53 AM [facility] AST 28 <33 U/L 01/31/2025 5:53 AM [facility] ALT 30 <34 U/L 01/31/2025 5:53 AM [facility] Alkaline Phosphatase 119 40 - 130 U/L 01/31/2025 5:53 AM [facility] Bilirubin, Total 0.3 0.0 - 1.2 mg/dL 01/31/2025 5:53 AM [facility] Total Protein 6.5 6.4 - 8.3 g/dL 01/31/2025 5:53 AM [facility] Albumin 3.0(L) 3.5 - 5.2 g/dL 01/31/2025 5:53 AM [facility] Globulin 3.5 1.9 - 4.1 g/dL 01/31/2025 5:53 AM [facility] eGFR 15(L) >59 mL/min/1.7 3m2 01/31/2025 5:53 AM [facility] Comment:Estimated glomerular filtration rate calculated using the CKD-EPI refit equation. Anion Gap 12 3 - 17 mmol/L 01/31/2025 5:53 AM [facility] Blood (Blood) Venipuncture / Unknown 01/31/2025 5:13 AM EST 01/31/2025 5:21 AM EST us Brynn Keller MD LAB BLOOD BKR ORDERABLES Jenny manzanares Result [facility] [address], [place] [id number] * Thyroid Stimulating Hormone (TSH), with Reflex (01/31/2025 5:13 AM EST) TSH 1.50 0.40 - 5.90 uIU/mL 01/31/2025 5:53 AM EST [facility] Blood (Blood) Venipuncture / Unknown 01/31/2025 5:13 AM EST 01/31/2025 5:21 AM EST us Brynn Keller MD LAB BLOOD BKR ORDERABLES Jenny l Result Performing Organization Address [facility]/ZIP Co de Phone Number [address] [address] * (ABNORMAL) Erythrocyte Sedimentation Rate (ESR) (01/31/2025 5:13 AM EST) Pathologist [facility] ESR 79(H) 0 - 30 mm/h 01/31/2025 5:57 AM EST [facility] Blood (Blood) Venipuncture / Unknown 01/31/2025 5:13 AM EST 01/31/2025 5:21 AM EST us Brynn Keller MD LAB BLOOD BKR ORDERABLES Jenny l Result Performing Organization Address [facility] Co de Phone Number [address] [address] * (ABNORMAL) C-Reactive Protein (CRP) (01/31/2025 5:13 AM EST) Pathologist [facility] C Reactive Protein 67.5(H) <10.0 mg/L 01/31/2025 5:53 AM EST [facility] Comment:NOTE: This reference range is for the evaluation of inflammation. Order CRP, High Sensitivity for cardiac risk status evaluation. Blood (Blood) Venipuncture / Unknown 01/31/2025 5:13 AM EST 01/31/2025 5:21 AM EST us Brynn Keller MD LAB BLOOD BKR ORDERABLES Jenny l Result Performing Organization Address City/[facility]/ZIP Co de Phone Number [address] [address] * (ABNORMAL) NT-proBNP (01/31/2025 5:13 AM EST) Only the most recent of3 resultswithin the time period is included. NT-ProBNP 35,603(H) 0 - 900 pg/mL 01/31/2025 6:08 AM EST [facility] Comment: Age <50 years: 0-450 pg/ml [...] ORDERABLES Jenny l Result Performing Organization Address City/[facility]/ZIP Co de Phone Number [address] [address] * (ABNORMAL) Ionized Calcium (01/31/2025 5:13 AM EST) Ionized Calcium 1.11(L) 1.14 - 1.30 mmol/L 01/31/2025 5:23 AM EST [facility] Blood (Blood, Venous) Venipuncture / Unknown 01/31/2025 5:13 AM EST 01/31/2025 5:21 AM EST us Brynn Keller MD LAB BLOOD BKR ORDERABLES Jenny l Result [address] [address] * MRSA NASAL SCREEN, PCR (01/30/2025 4:02 AM EST) Only the most recent of2 resultswithin the time period is included. MRSA PCR Screen Negative for MRSA Negative for MRSA 01/30/2025 5:35 AM EST [facility] Swab (Anterior Nares) Non-Blood Collection / Unknown 01/30/2025 4:02 AM EST 01/30/2025 4:22 AM EST us Daysi Mckenzie PA-C LAB GENERAL ORDERABLES Final Result Performing Organization Address City/[facility]/ZIP Co de Phone Number [address] [address] * Lactate, Whole Blood (01/29/2025 11:08 PM EST) Only the most recent of2 resultswithin the time period is included. Lactate, Whole Blood 1.9 0.5 - 2.0 mmol/L 01/29/2025 11:14 PM EST [facility] Blood (Blood, Venous) Venipuncture / Unknown 01/29/2025 11:08 PM EST 01/29/2025 11:11 PM EST us Daysi Mckenzie PA-C LAB BLOOD BKR ORDERABLE S Final Result Performing Organization Address City/[facility]/ZIP Co de Phone Number [address] [address] * (ABNORMAL) Urinalysis with Reflex to Urine Culture (01/29/2025 9:51 PM EST) Color Yellow Yellow 01/29/2025 9:59 PM EST [facility] Clarity Clear Clear 01/29/2025 9:59 PM EST [facility] Glucose Negative Negative 01/29/2025 9:59 PM EST [facility] Bilirubin Urine Negative Negative 9:59 PM EST [facility] Ketone Urine Negative Negative 01/29/2025 9:59 PM [facility] Specific [place] 1.020 1.001 - 1.035 01/29/2025 9:59 PM [facility] Blood 1+(A) Negative 01/29/2025 9:59 PM [facility] pH 6.0 5.0 - 8.0 01/29/2025 9:59 PM [facility] Protein 3+(A) Negative 01/29/2025 9:59 PM [facility] Nitrites Negative Negative 01/29/2025 9:59 PM [facility] Leukocyte Esterase Negative Negative 01/29/2025 9:59 PM [facility] Urobilinogen Negative Negative 01/29/2025 9:59 PM [facility] Urine (Urine, Voided) Non-Blood Collection / Unknown 01/29/2025 9:51 PM EST 01/29/2025 9:55 PM EST us Montrell Munoz MD LAB URINE ORDERABLES Final Result Performing Organization Address City/State/[facility] Co de Phone Number [address] [address] * (ABNORMAL) URINE SEDIMENT (01/29/2025 9:51 PM EST) WBC 0-2 0 - 9 /hpf 01/29/2025 10:05 PM [facility] RBC 0-2 0 - 2 /hpf 01/29/2025 10:05 PM [facility] Squamous Epithelial Cells 3-5(A) Not Present /hpf 01/29/2025 10:05 PM [facility] Mucus Present(A ) Not Present /hpf 01/29/2025 10:05 PM [facility] Granular Cast 1-2(A) Not Present /lpf 01/29/2025 10:05 PM [facility] Hyaline Cast 1-2 0 - 2 /lpf 01/29/2025 10:05 PM [facility] Amorphous Urate/Phosphate crystals Present(A ) Not Present /hpf 01/29/2025 10:05 PM [facility] Urine (Urine, Voided) Non-Blood Collection / Unknown 01/29/2025 9:51 PM EST 01/29/2025 9:55 PM EST Montrell Munoz MD LAB URINE ORDERABLES Final Result Performing Organization Address [facility] Co de Phone Number [address] [address] * (ABNORMAL) Venous Blood Gas (VBG) (01/29/2025 9:05 PM EST) Only the most recent of2 resultswithin the time period is included. Pathologist [facility] pH, Venous 7.24(L) 7.31 - 7.41 01/29/2025 9:13 PM [facility] pCO2, Venous 53(H) 35 - 45 mm[Hg] 01/29/2025 9:13 PM [facility] pO2, Venous 42(H) 35 - 40 mm[Hg] 01/29/2025 9:13 PM [facility] Base Excess -5.0(L) -3.0 - 3.0 mmol/L 01/29/2025 9:13 PM [facility] Bicarbonate (HCO3) 23 23 - 28 mmol/L 01/29/2025 9:13 PM [facility] Oxygen Saturation, Venous 68.8 60.0 - 80.0 % 01/29/2025 9:13 PM [facility] Blood (Blood, Venous) Venipuncture / Unknown 01/29/2025 9:05 PM EST 01/29/2025 9:09 PM EST Montrell Munoz MD LAB BLOOD BKR ORDERABLES Fi nal Result Performing Organization Address City/[facility]/ZIP Co de Phone Number [address] [address] * (ABNORMAL) SARS-CoV-2, INFLUENZA A/B, PCR (01/29/2025 8:43 PM EST) Only the most recent of2 resultswithin the time period is included. Pathologist [facility] SARS-CoV-2 RNA PCR Not Detected Not Detected 01/29/2025 9:20 PM [facility] Influenza A PCR Detected(A) Not Detected 01/29/2025 9:20 PM [facility] Influenza B PCR Not Detected Not Detected 01/29/2025 9:20 PM [facility] Swab (Nasopharynx, Bilateral) Non-Blood Collection / Unknown 01/29/2025 8:43 PM EST 01/29/2025 8:46 PM EST Montrell Munoz MD LAB GENERAL ORDERABLES Jenny l Result Performing Organization Address [facility] de Phone Number [address] [address] * Symptomatic Respiratory Virus Testing Panel (ED/IP) (01/29/2025 8:43 PM EST) Only the most recent of2 resultswithin the time period is included. SARS Comment 01/29/2025 8:58 PM [facility] Comment:This test automatica lly orders a [...] ORDERABLES Jenny l Result Performing Organization Address [facility] de Phone Number [address] [address] * Lab Add-On (01/29/2025 8:26 PM EST) Only the most recent of2 resultswithin the time period is included. Specimen Date/Time 01/31/2025 8:05 AM [facility] Test Requested Lipase, LFTs 01/31/2025 8:05 AM [facility] Specimen Description 01/31/2025 8:05 AM [facility] Comments 01/31/2025 8:05 AM [facility] Was this request processed? Yes 01/31/2025 8:05 AM EST [facility] Other (Other) 01/29/2025 8:2 6 PM EST 01/29/2025 8:26 PM EST us Montrell Munoz MD LAB GENERAL ORDERABLES Jenny l Result [address] [address] * XR Chest Portable (01/29/2025 8:15 PM EST) Anatomical Region Laterality Modality Chest Computed Radiogr aphy 01/29/2025 11:2 8 PM EST Impressions 01/29/2025 11:30 PM EST Moderate pulmonary edema and small pleural effusions. Narrative 01/29/2025 11:30 PM EST XR CHEST PORTABLE Referring clinician's provided indication for this examination in [place]: Shortness of breath COMPARISON: XR CHEST PORTABLE [...] clinician's provided indication for this examination in [place]:Shortness of breath COMPARISON: XR CHEST PORTABLE FINDINGS: Devices/Tubes/Lines: None. Lungs: Pulmonary vascular engorgement, diffuse interstitial opacities withKerley B-lines, and perihilar haziness with lower lung predominance. Rightlower lobe subsegmental atelectasis. Pleura: Small bilateral pleural effusions. No pneumothorax. Heart/Mediastinum: Unchanged cardiomegaly. Atheromatous aorta. Bones/Soft Tissues: No significant abnormality. IMPRESSION: Moderate pulmonary edema and small pleural effusions. Montrell Munoz MD IMG XR CHEST Final Resul t * PT-INR (01/29/2025 8:10 PM EST) Only the most recent of3 resultswithin the time period is included. Pathologist [facility] PT 13.0 10.0 - 13.0 sec 01/29/2025 9:07 PM [facility] INR 1.1 0.9 - 1.1 01/29/2025 9:07 PM [facility] Comment:Therapeutic Range 2. 0 - 3.5 Blood (Blood) Venipuncture / Unknown 01/29/2025 8:10 PM EST 01/29/2025 8:12 PM EST us Montrell Munoz MD LAB BLOOD BKR ORDERABLES Fi nal Result Performing Organization Address City/[facility]/ZIP Co de Phone Number [address] [address] * Blood Culture, Routine (01/29/2025 8:05 PM EST) Only the most recent of2 resultswithin the time period is included. Pathologist [facility] Blood Culture/Test No growth at 5 days 02/03/2025 8:15 PM EST [facility] Blood (Blood) Venipuncture / Unknown 01/29/2025 8:05 PM EST 01/29/2025 8:09 PM EST Montrell Munoz MD LAB MICROBIOLOGY CULTURE OR DERABLES Final Result Performing Organization Address City/[facility]/ZIP Co de Phone Number [address] [address] * (ABNORMAL) Hepatic Panel (LFTs) (01/29/2025 8:05 PM EST) Only the most recent of3 resultswithin the time period is included. Pathologist [facility] AST 73(H) <33 U/L 01/29/2025 9:20 PM [facility] ALT 37(H) <34 U/L 01/29/2025 9:20 PM [facility] Alkaline Phosphatase 173(H) 40 - 130 U/L 01/29/2025 9:20 PM [facility] Bilirubin, Total 0.4 0.0 - 1.2 mg/dL 01/29/2025 9:20 PM [facility] Bilirubin, Direct 0.2 0.0 - 0.3 mg/dL 01/29/2025 9:20 PM [facility] Total Protein 7.4 6.4 - 8.3 g/dL 01/29/2025 9:20 PM [facility] Albumin 3.4(L) 3.5 - 5.2 g/dL 01/29/2025 9:20 PM [facility] Globulin 4.0 1.9 - 4.1 g/dL 01/29/2025 9:20 PM [facility] Blood (Blood) Venipuncture / Unknown 01/29/2025 8:05 PM EST 01/29/2025 8:10 PM EST us Montrell Munoz MD LAB BLOOD BKR ORDERABLES Fi nal Result [address] [address] * Lipase (01/29/2025 8:05 PM EST) Lipase 41 13 - 60 U/L 01/29/2025 9:20 PM [facility] Blood (Blood) Venipuncture / Unknown 01/29/2025 8:05 PM EST 01/29/2025 8:10 PM EST us Montrell Munoz MD LAB BLOOD BKR ORDERABLES Fi nal Result [address] [address] * US BEDSIDE (01/29/2025 7:51 PM EST) [...] positive Images: Images Saved: Yes Accession Number: [id number] us Montrell Munoz MD IMG POINT OF CARE EXAMS Fin al Result * US KIDNEY(S) AND BLADDER (01/02/2025 12:07 PM EST) Anatomical Region Laterality Modality Abdomen, Kidney Ultrasound 01/02/2025 12:1 1 PM EST Impressions 01/02/2025 12:14 PM EST 1. Echogenic renal parenchyma, likely representing medical renal disease. 2. No hydronephrosis. 3. Bilateral renal cysts. Narrative 01/02/2025 12:14 PM EST US KIDNEY(S) AND BLADDER Referring clinician's provided indication for this examination in [place]: Renal failure, acute; Renal failure, chronic TECHNIQUE: [...] clinician's provided indication for this examination in [place]:Renal failure, acute; Renal failure, chronic TECHNIQUE: Kidney [...] 2. No hydronephrosis. 3. Bilateral renal cysts. us Gela Preciado DO, MPH IMG US RENAL Final Result * (ABNORMAL) CBC (01/02/2025 7:19 AM EST) WBC 6.75 4.00 - 11.00 K/uL 01/02/2025 7:50 AM [facility] RBC 3.01(L) 4.00 - 5.20 M/uL 01/02/2025 7:50 AM [facility] Hemoglobin 8.5(L) 12.0 - 16.0 g/dL 01/02/2025 7:50 AM [facility] Hematocrit 29.4(L) 36.0 - 46.0 % 01/02/2025 7:50 AM [facility] MCV 97.7 80.0 - 100.0 fL 01/02/2025 7:50 AM [facility] MCH 28.2 27.0 - 31.0 pg 01/02/2025 7:50 AM [facility] MCHC 28.9(L) 32.0 - 36.0 g/dL 01/02/2025 7:50 AM [facility] PLT 331 150 - 450 K/uL 01/02/2025 7:50 AM [facility] MPV 10.6 8.4 - 12.0 fL 01/02/2025 7:50 AM [facility] RDW-CV 15.8(H) 11.5 - 14.5 % 01/02/2025 7:50 AM [facility] Absolute NRBC 0.02(H) <=0.00 K cells/uL 01/02/2025 7:50 AM [facility] NRBC 0.3(H) <=0.0 /100 WBCs 01/02/2025 7:50 AM [facility] Blood (Blood) Venipuncture / Unknown 01/02/2025 7:19 AM EST 01/02/2025 7:35 AM EST us Nakita De Santiago DO LAB BLOOD BKR ORDERABLES Jenny l Result Performing Organization Address [facility]/ZIP Co de Phone Number [address] [address] * (ABNORMAL) Hemoglobin A1c (12/31/2024 6:33 AM EST) Hemoglobin A1c 6.1(H) 4.3 - 5.6 % 12/31/2024 11:32 AM [facility] Calculated Mean Blood Glucose 128 mg/dL 12/31/2024 11:32 AM [facility] Comment:There is no establis hed normal range for the Estimated Average Glucose (EAG). However, a HbA1c of 5.6% (upper limit of normal) represents an EAG of 114 mg/dL. The diagnostic HbA1c level for diabetes is greater than or equal to 6.5%, which represents an EAG greater than or equal to 140 mg/dL. Blood (Blood) Venipuncture / Unknown 12/31/2024 6:33 AM EST 12/31/2024 6:48 AM EST us Christa Mcclure PA-C, MS LAB BLOOD BKR ORD ERABLES Final Result Performing Organization Address [facility]/ZIP Co de Phone Number [address] [address] * TTE COMPREHENSIVE (12/30/2024 8:34 AM EST) Right Ventricle Peak Systolic Pressure 41 mmHg [...] ECHO ORDERABLES Final Resul t * (ABNORMAL) Procalcitonin (12/29/2024 5:04 PM EST) Procalcitonin 1.73(H) 0.00 - 0.25 ng/mL 12/29/2024 6:12 PM EST [facility] Comment: <=0.25 ng/mL: Bacterial pneumonia is unlikely. [...] DO LAB BLOOD BKR ORDERABLES Final Result [address] [address] * US Lower Extremity Veins Duplex Complete [...] US VASCULAR F inal Result * (ABNORMAL) Arterial Blood Gas (ABG) (12/29/2024 9:53 AM EST) Pathologist [facility] FiO2 50 % 12/29/2024 10:02 AM [facility] pH, Arterial 7.28(L) 7.35 - 7.45 12/29/2024 10:02 AM [facility] pCO2, Arterial 43 35 - 45 mm[Hg] 12/29/2024 10:02 AM [facility] pO2, Arterial 107(H) 80 - 105 mm[Hg] 12/29/2024 10:02 AM [facility] Bicarbonate (HCO3) 20(L) 22 - 26 mmol/L 12/29/2024 10:02 AM [facility] Base Excess -6.8(L) -3.0 - 3.0 mmol/L 12/29/2024 10:02 AM [facility] Oxygen Saturation, Arterial 97.8 95.0 - 98.0 % 12/29/2024 10:02 AM [facility] Blood (Blood, Arterial) Arterial Puncture / Unknown 12/29/2024 9:53 AM EST 12/29/2024 9:56 AM EST us Jose Orellana MD LAB BLOOD BKR ORD ERABLES Final Result [address] [address] * (ABNORMAL) D-Dimer (12/29/2024 9:49 AM EST) Pathologist [facility] D-Dimer 7,410(H) <500 ng/mL FEU 12/29/2024 12:05 PM [facility] Comment:A negative D-dimer r esult (at [...] LAB BLOOD BKR ORD ERABLES Final Result [address] [address] * XR Chest Portable (12/29/2024 9:47 AM EST) Anatomical Region Laterality Modality Chest Computed Radiogr aphy 12/29/2024 10:1 3 AM EST Impressions 12/29/2024 10:30 AM EST Cardiomegaly with moderate pulmonary edema. Left lower lobe opacity may represent superimposed pneumonia/aspiration or atelectasis. ATTESTATION: IAnne as teaching physician, have reviewed the images for this case and if necessary edited the report originally created by Carson Izaguirre. Narrative 12/29/2024 10:30 AM EST XR CHEST PORTABLE Referring clinician's provided indication for this examination in [place]: Dyspnea (Shortness of Breath) COMPARISON: XR CHEST PORTABLE FINDINGS: Devices/Tubes/Lines: None. Lungs: Diffuse interstitial prominence. Additional left lower lobe opacity is present. Pleura: Trace bilateral pleural effusion. Heart/Mediastinum: Unchanged cardiomegaly with aortic calcifications. Bones/Soft Tissues: No significant abnormality. Procedure Note Anne Tucker MD - 12/29/2024 XR CHEST PORTABLE Referring clinician's provided indication for this examination in [place]:Dyspnea (Shortness of Breath) COMPARISON: XR CHEST PORTABLE [...] Maynard MD - 06/12/2024 7:48 AM EDT [facility] Patient Name: Yecenia Rustam Gaines Attending MD:: SIXTO MAYNARD MD, Procedure Date: 06/12/2024 7:48 AM Date of : 1950 Age: 74 Admit Type: Inpatient Gender: Female Room: [place] [address] Referring MD: Baldomero Roy Exam Type: Colonoscopy [...] bowel preparation was evaluated using the BBPS ([place] Bowel Preparation Scale) with scores of:Right Colon [...] white for ongoingcare. - Outpatient f/u with [facility]. SIXTO MAYNARD MD 06/12/2024 8:13:01 AM This report has been signed electronically. Number of Addenda: 0 Note Initiated On: 06/12/2024 7:48 AM Procedure Code(s): --- Professional --- 59333, Colonoscopy, flexible; diagnostic, including collection of specimen(s) by brushing or washing, when performed (separateprocedure) --- Technical --- 96460, Colonoscopy, flexible; diagnostic, including collection of specimen(s) by brushing or washing, when performed (separateprocedure) Diagnosis Code(s): --- Professional --- D50.9, Iron deficiency anemia, unspecified K57.30, Diverticulosis of large intestine without perforation or abscess without bleeding --- Technical --- D50.9, Iron deficiency anemia, unspecified K57.30, Diverticulosis of large intestine without perforation or abscess without bleeding CPT copyright 2021 [employer]. All rights reserved. The codes documented in this report are preliminary and upon braille coder reviewmay be revised to meet current compliance requirements. Procedure Date: 06/12/2024 7:48:04 AM [address] [place] [address] [facility] PROCEDURE ORDERABLES Final Result from Last 3 Months or Most Recently Relevant to Health Maintenance Insurance MEDICARE PART A & B [facility] MEDICARE REPLACEMENT MEDICARE PART A & B O MEDICARE REPLACEMENT MEDICARE PART A & B MEDICARE PART A & B MEDICARE PART A & B O MEDICARE REPLACEMENT MEDICARE PART A & B MEDICARE PART A & B MEDICARE REPLACEMENT MEDICARE PART A & B MEDICARE REPLACEMENT MEDICARE PART A & B Member Subscriber Plan / Payer (Ef fective 2015-Present) Name:Yecenia Alaniz Member ID:[id number] Relation to Subscriber:Self Name:Yecenia Alaniz Subscriber ID:[id number] Payer ID:[id number] Group ID:Not on file Type:Medicare Address: [employer] [facility] [address] [address] [facility] [employer] MEDICARE REPLACEMENT Advance Directives For more information, please contact: [phone] (9AM - 5PM [facility], Sunday-Sunday) Documents on File Type Date Recorded Patient Degreaser Expl anation Healthcare Proxy 02/06/2025 8:17 AM Healthcare Proxy 2025 * Full Code (Latest Code Status on File) Date Activated Date Inactivated Comments 01/29/2025 11:22 PM Question Answer Comments Code Status Confirmed With: Patient * Full Code Date Activated Date Inactivated Comments 12/29/2024 4:05 PM 01/29/2025 11:22 PM Question Answer Comments Code Status Confirmed With: Patient Code Status Communicated To: Inpatient Attending * Full Code Date Activated Date Inactivated Comments 06/07/2024 9:14 PM 12/29/2024 4:05 PM Question Answer Comments Code Status Confirmed With: Patient Healthcare Agents on File Name Relationship Healthcare Agent Relationship Communication Sree Goldberg Friend Other (no proxy form on file) Gurmeet Easton Son .Primary Health Care Agent (Proxy form on file) Gabriel Hilario Friend Alternate Healthcare Agent (Proxy form on file) Care Teams Insurance Office Manager Relationship Specialty Start Date End Date London Boyer MD [address] [place] [address] PCP - General Nephrology 02/04/25 Additional Source Comments The information contained in this document represents components of the legal health record. It is not the complete legal health record.[facility]
--- OUTSIDE RECORDS SUMMARY | 2025-02-06 11:54 | XMS_ITS | Encounter Summary ---
Author Organization [facility] Address [address] [facility] [address] [place] [address] Phone Care Team Providers Care Information Technology Assistant Name Role Phone Baldomero Roy Primary Care Provider + London Boyer MD Primary Care Pro vider Encounter Details Date Type Department Care Team (Late st Contact Info) Description 06/12/2024 Procedure Pass [facility] Endoscopy Admitting Dept Virtual Department [address] [place] [address] Social History Tobacco Use Types Packs/Day Years [...] Description 04/07/2025 12:00 PM EST Office Visit [facility] [address] [place] [address] Naun Duran DO [address] [place] [address] documented as of this encounter Visit Diagnoses Not on filedocumented in this encounter Additional Health Concerns Infection Onset Date Last Indicated Resolved Time Resp-Risk Comment:Per note documentation 12/29/2024 12/29/2024 6:41 AM EST Resp-Risk 01/29/2025 01/29/2025 01/29/2025 9:20 PM EST Influenza A 01/29/2025 01/29/2025 02/05/2025 7:06 PM EST documented as of this encounter Care Teams Information Technology Assistant Relationship Specialty Start Date End Date Baldomero Roy PA [address] [place] [id number] PCP - General Physician Nursing Service Director 06/07/24 02/03/25 London Boyer MD [address] [place] [id number] PCP - General Nephrology 02/04/25 documented as of this encounter Additional Source Comments The information contained in this document represents components of the legal health record. It is not the complete legal health record.[facility]
--- OUTSIDE RECORDS SUMMARY | 2025-02-06 11:54 | XMS_ITS | Encounter Summary ---
Author Organization [facility] Address [address] [place] [address] Phone Care Team Providers Care Sheet Rock Finisher Name Role Phone Baldomero Roy Primary Care Provider + Reason for Referral * Home Health Care - Pending Review Specialty Diagnoses / Procedures Referred By Contveda t Referred To Contact Home Health Services Ruddy Umaña, [facility] [address] [place], [place] Phone: tel: fax: [email or web address] [address] [place], [place] Phone: tel: fax: Referral ID Status Reason Start Date Expiration Date V isits Requested Visits Authorized [id number] Pending Review 02/01/2025 02/01/2026 1 1 Encounter Details Date Type Department Care Team (Late st Contact Info) Description 02/01/2025 Orders Only [facility] [address] [place] [address] Armida Munroe MD [address] [place] [address] Social History Tobacco Use Types Packs/Day Years [...] Description 04/07/2025 12:00 PM EST Office Visit [facility] 22 [place] [address] Naun Duran DO 22 [place] [address] [email or web address] Scheduled Referrals Name Type Priority Associated Diagnoses Orde r Schedule 4NEXT REFERRAL TO HOME HEALTH Outpatient Referral Routine Ordered: 02/01/2025 documented as of this encounter Visit Diagnoses Not on filedocumented in this encounter Additional Health Concerns Infection Onset Date Last Indicated Resolved Time Influenza A 01/29/2025 01/29/2025 02/05/2025 7:06 PM EST documented as of this encounter Care Teams Sheet Rock Finisher Relationship Specialty Start Date End Date Baldomero Roy PA [facility] [place] [address] PCP - General Physician Chief Jailer 06/07/24 02/03/25 documented as of this encounter Additional Source Comments The information contained in this document represents components of the legal health record. It is not the complete legal health record.[facility]
--- OUTSIDE RECORDS SUMMARY | 2025-02-06 11:55 | XMS_ITS | Encounter Summary ---
Author Organization [facility] Address [address] [place] [address] Phone Care Team Providers Care Novelty Twister Operator Name Role Phone Marychuy Ríos MD Primary Care Provider Baldomero Roy Primary Care Provider + London Boyer MD Primary Care Pro vider Encounter Details Date Type Department Care Team (Late st Contact Info) Description 11/30/2020 Ancillary Orders [facility] [address] [place] [address] [place] [address] Alexander Matthew PA [address] [place] [address] [email or web address] Social History Tobacco Use Types Packs/Day Years [...] Description 04/07/2025 12:00 PM EST Office Visit [facility] 22 [place] [address] Naun Duran DO 22 [place] [address] [email or web address] documented as of this encounter Visit Diagnoses Not on filedocumented in this encounter Additional Health Concerns Infection Onset Date Last Indicated Resolved Time Resp-Risk Comment:Per note documentation 12/29/2024 12/29/2024 6:41 AM EST Resp-Risk 01/29/2025 01/29/2025 01/29/2025 9:2 0 PM EST Influenza A 01/29/2025 01/29/2025 02/05/2025 7:06 PM EST documented as of this encounter Care Teams Novelty Twister Operator Relationship Specialty Start Date End Date Marychuy Ríos MD [address] [address] PCP - General Internal Medicine 11/30/20 06/06/24 Baldomero Roy PA [address] [place] [address] PCP - General Physician Flame Channeler 06/07/24 02/03/25 London Boyer MD [address] [place] [address] PCP - General Nephrology 02/04/25 documented as of this encounter Additional Source Comments The information contained in this document represents components of the legal health record. It is not the complete legal health record.[facility]
--- OUTSIDE RECORDS SUMMARY | 2025-02-06 11:55 | XMS_ITS | Encounter Summary ---
Author Organization [facility] Address [address] [place] [address] Phone Care Team Providers Care Trust Manager Name Role Phone Marychuy Ríos MD Primary Care Provider Baldomero Roy Primary Care Provider + London Boyer MD Primary Care Pro vider Encounter Details Date Type Department Care Team (Late st Contact Info) Description 11/30/2020 Ancillary Orders [facility] [address] [place] [address] [place] [address] Alexander Matthew PA 6 [place] [address] [email or web address] Social History Tobacco Use Types Packs/Day Years [...] Description 04/07/2025 12:00 PM EST Office Visit [facility] 22 [place] [address] Naun Duran DO 22 [place] [address] [email or web address] documented as of this encounter Visit Diagnoses Not on filedocumented in this encounter Additional Health Concerns Infection Onset Date Last Indicated Resolved Time Resp-Risk Comment:Per note documentation 12/29/2024 12/29/2024 6:41 AM EST Resp-Risk 01/29/2025 01/29/2025 01/29/2025 9:2 0 PM EST Influenza A 01/29/2025 01/29/2025 02/05/2025 7:06 PM EST documented as of this encounter Care Teams Trust Manager Relationship Specialty Start Date End Date Marychuy Ríos MD [address] [address] PCP - General Internal Medicine 11/30/20 06/06/24 Baldomero Roy PA [address] [place] [address] PCP - General Physician Hops Farmworker 06/07/24 02/03/25 London Boyer MD [address] [place] [address] PCP - General Nephrology 02/04/25 documented as of this encounter Additional Source Comments The information contained in this document represents components of the legal health record. It is not the complete legal health record.[facility]
--- OUTSIDE RECORDS SUMMARY | 2025-02-06 11:55 | XMS_ITS | Encounter Summary ---
Author Organization [facility] Address [address] [facility] [address] [place] [address] Phone Care Team Providers Care Cardiac Nurse Name Role Phone London Boyer MD Primary Care Pro vider Encounter Details Date Type Department Care Team (Late st Contact Info) Description 02/06/2025 Home Care Visit [facility] 30 [place] [phone] Sophia Hernandez RN [address] [place] [address] [email or web address] CASE COMMUNICATION Social History Tobacco Use Types Packs/Day Years [...] your housing situation today? I have finesse mckeon 02/02/2025 How many times have you [...] Description 04/07/2025 12:00 PM EST Office Visit [facility] 22 [place] [address] Naun Duran DO 22 [place] [address] documented as of this encounter Visit Diagnoses Not on filedocumented in this encounter Care Teams Cardiac Nurse Relationship Specialty Start Date End Date London Boyer MD [address] [place] [address] PCP - General Nephrology 02/04/25 documented as of this encounter Additional Source Comments The information contained in this document represents components of the legal health record. It is not the complete legal health record.[facility]
--- OUTSIDE RECORDS SUMMARY | 2025-02-06 11:55 | XMS_ITS | Encounter Summary ---
Author Organization [facility] Address [address] [facility] [address] [place] [address] Phone Care Team Providers Care Foam Molder Name Role Phone Baldomero Roy Primary Care Provider + London Boyer MD Primary Care Pro vider Encounter Details Date Type Department Care Team (Late st Contact Info) Description 12/29/2024 Procedure Pass [facility] [place] [facility] 30 [place] [address] Social History Tobacco Use Types Packs/Day Years [...] Description 04/07/2025 12:00 PM EST Office Visit [facility] 22 [place] [address] Naun Duran DO 22 [place] [address] documented as of this encounter Visit Diagnoses Not on filedocumented in this encounter Additional Health Concerns Infection Onset Date Last Indicated Resolved Time Resp-Risk Comment:Per note documentation 12/29/2024 12/29/2024 6:41 AM EST Resp-Risk 01/29/2025 01/29/2025 01/29/2025 9:20 PM EST Influenza A 01/29/2025 01/29/2025 02/05/2025 7:06 PM EST documented as of this encounter Care Teams Foam Molder Relationship Specialty Start Date End Date Baldomero Roy PA [address] [place] [address] PCP - General Physician Multi Operation Forming Machine Setter 06/07/24 02/03/25 London Boyer MD [address] [place] [address] PCP - General Nephrology 02/04/25 documented as of this encounter Additional Source Comments The information contained in this document represents components of the legal health record. It is not the complete legal health record.[facility]
--- OUTSIDE RECORDS SUMMARY | 2025-02-06 11:55 | XMS_ITS | Encounter Summary ---
Author Organization [facility] Address [address] [address] Phone Care Team Providers Care Administration Manager Name Role Phone Marychuy Ríos MD Primary Care Provider Baldomero Roy Primary Care Provider + London Boyer MD Primary Care Pro vider Reason for Referral * Outpatient Procedure - Closed Specialty Diagnoses / Procedures Referred By Contac t Referred To Contact Radiology Diagnoses Bruit of right carotid artery Bilateral carotid artery stenosis Carotid occlusion, bilateral Procedures US Carotid Duplex Complete (Bilateral) Marychuy Ríos MD Phone: tel: fax: Referral ID Status Reason Start Date Expiration Date Visits Re quested Visits Authorized [id number] Closed 11/14/2021 11/14/2022 1 1 Encounter Details Date Type Department Care Team (Late st Contact Info) Description 11/14/2021 Transcribe Orders Virtual Department 30 [place] [address] Marychuy Ríos MD [address] [place] [address] Bruit of right carotid artery (Primary Dx); [...] Description 04/07/2025 12:00 PM EST Office Visit [facility] 22 [place] [address] Naun Duran DO 22 [place] [address] [email or web address] documented [...] antegrade vertebral artery flow. Marychuy Ríos MD US NEUROVASCULAR Final R esult documented in [...] documented as of this encounter Care Teams Administration Manager Relationship Specialty Start Date End Date Marychuy Ríos MD [address] [facility] [address] [place] [address] [phone] (work) PCP - General Internal Medicine 11/30/20 06/06/24 Baldomero Roy PA [address] [place] [address] PCP - General Physician Railroad Firer 06/07/24 02/03/25 London Boeyr MD [address] [place] [address] PCP - General Nephrology 02/04/25 documented as of this encounter Additional Source Comments The information contained in this document represents components of the legal health record. It is not the complete legal health record.[facility]
== END 2025-02-06 11:22 | disposition home or self-care (01) ==
PROVIDERS: PCP Internal Medicine; Visit Provider Internal Medicine Nephrology
DX: N18.32 Chronic kidney disease, stage 3b (principal); D63.1 Anemia in chronic kidney disease; I10 Essential (primary) hypertension; I12.9 Hypertensive chronic kidney disease with stage 1 through stage 4 chronic kidney disease, or unspecified chronic kidney disease; N18.4 Chronic kidney disease, stage 4 (severe); N17.9 Acute kidney failure, unspecified
CPT/HCPCS: 99214

== ENCOUNTER 2025-02-17 10:22 | Outpatient (REF) | payer OTHER, SELFPAY ==
[2025-02-17 10:49] LABS: MANUAL DIFF FLAG NO
[2025-02-17 11:43] LABS: Hematocrit 30.3 % (37.0-47.0); Hemoglobin 8.6 g/dl (12.0-16.0); Imm Gran Abs Auto 0.02 X10*3/uL (0.00-0.03); Imm Gran Pct Auto 0.3 % (0.0-0.4); Lymphocytes Absolute Auto 1.1 X10*3/uL (1.2-4.9); Mean Corpuscular HGB Conc 28.4 g/dl (31.0-35.0); Mean Corpuscular Hemoglobin 27.4 pg (27.0-33.0); Mean Corpuscular Volume 96.5 fL (80.0-98.0); NRBC Abs Auto 0.000 X10*3/uL (0.0-0.012); NRBC Pct Auto 0.0 /100WBC (0.0-0.2); Platelet Count 318 X10*3/uL (160-400); Red Blood Count 3.14 X10*6/uL (4.20-5.50); White Blood Count 6.8 X10*3/uL (4.8-10.8)
[2025-02-17 12:50] LABS: Anion Gap 14 (12-20); Blood Urea Nitrogen 77 mg/dL (9-16); Calcium 9.5 mg/dL (8.4-10.2); Carbon Dioxide 27 mmol/L (22-29); Chloride 107 mmol/L (96-108); Estimated Glomerular Filt Rate 14; Potassium 4.1 mmol/L (3.3-5.1); Sodium 144 mmol/L (135-145)
--- OUTSIDE RECORDS SUMMARY | 2025-02-17 13:53 | XMS_ITS | Encounter Summary ---
Author Organization [facility] Address [address] [facility] [address] [place] [address] Phone Care Team Providers Care Artist Blacksmith Name Role Phone Baldomero Roy Primary Care Provider + London Boyer MD Primary Care Pro vider Encounter Details Date Type Department Care Team (Late st Contact Info) Description 02/02/2025 Procedure Pass [facility] 30 [place] [address] Social History Tobacco Use Types Packs/Day Years [...] Care Team (Late st Contact Info) Description 02/24/2025 2:30 AM EST Appointment [facility] [address] [place], [place] [phone] Cameorn Carrero, GALDINO [address] [place] [address] 03/03/2025 3:00 AM EST Appointment [facility] 30 [place] [address] Cameron Carrero, GALDINO [address] [place] [address] 04/07/2025 12:00 PM EST Office Visit [facility] 22 [place] [address] Naun Duran DO 22 [place] [address] [email or web address] documented as of this encounter Visit Diagnoses Not on filedocumented in this encounter Additional Health Concerns Infection Onset Date Last Indicated Resolved Time Influenza A 01/29/2025 01/29/2025 02/05/2025 7:06 PM EST documented as of this encounter Care Teams Artist Blacksmith Relationship Specialty Start Date End Date Baldomero Roy PA [address] [place] [address] PCP - General Physician Sprayer Hand 06/07/24 02/03/25 London Boyer MD [address] [place] [address] PCP - General Nephrology 02/04/25 documented as of this encounter Additional Source Comments The information contained in this document represents components of the legal health record. It is not the complete legal health record.[facility]
--- OUTSIDE RECORDS SUMMARY | 2025-02-17 13:53 | XMS_ITS | Encounter Summary ---
Author Organization [facility] Address [address] [place] [address] Phone Care Team Providers Care Assistant Farm Operations Manager Name Role Phone London Boyer MD Primary Care Pro vider Reason for Visit * Reason Onset Date Comments Hematology Referral 02/06/2025 Encounter Details Date Type Department Care Team (Late st Contact Info) Description 02/06/2025 Telephone [facility] at [address] [address] Unknown, Unknown, Hematology Referral Social History Tobacco Use Types Packs/Day Years Used Date Smoking Tobacco: Never Smokeless Tobacco: Never Alcohol Use Standard Drinks/Week Comments Never 0 (1 standard drink = 0.6 oz pur e alcohol) Home Health Assessment: Transportation Answer Date Recorded Lack of Transportation (Medical) No 02/10/2025 Lack of Transportation (Non-Medical) No 02/10/2025 Patient Unable or Declines to Respond No 02/10/2025 Education Answer Date Recorded Are you interested [...] PM EST documented as of this encounter Progress Notes * Adalgisa Mosley - 02/16/2025 10:23 AM EST MS has advised that pt can be seen by her or w/in 1 month. * AndreandrewAdalgisa - 02/06/2025 2:08 PM EST Received faxed HEME referral from [facility] w/ diagnosis of Anemia. documented in this encounter Plan of Treatment Upcoming Encounters Date Type Department Care Team (Late st Contact Info) Description 02/24/2025 2:30 AM EST Appointment [facility] 30 [place] [address] Cameron Carrero RN [address] [place] [address] 03/03/2025 3:00 AM EST Appointment [facility] [address] [place] [phone] Cameron Carrero RN [address] [place] [address] 04/07/2025 12:00 PM EST Office Visit [facility] 22 [place] [address] Naun Duran DO 22 [place] [address] documented as of this encounter Visit Diagnoses Not on filedocumented in this encounter Care Teams Assistant Farm Operations Manager Relationship Specialty Start Date End Date London Boyer MD [address] [place] [address] PCP - General Nephrology 02/04/25 documented as of this encounter Additional Source Comments The information contained in this document represents components of the legal health record. It is not the complete legal health record.[facility]
--- OUTSIDE RECORDS SUMMARY | 2025-02-17 13:53 | XMS_ITS | Encounter Summary ---
Author Organization [facility] Address [address] [facility] [address] [place] [address] Phone Care Team Providers Care Silviculture Teacher Name Role Phone Baldomero Roy Primary Care Provider + London Boyer MD Primary Care Pro vider Encounter Details Date Type Department Care Team (Late st Contact Info) Description 12/29/2024 Procedure Pass [facility] [place] [facility] 30 [place] [address] Social History Tobacco Use Types Packs/Day Years [...] Appointment [facility] [address] [place], [place] [phone] Cameron Carrero, GALDINO [address] [place] [address] 03/03/2025 3:00 AM EST Appointment [facility] 30 [place] [phone] Cameron Carrero, GALDINO [address] [place] [address] 04/07/2025 12:00 PM EST Office Visit [facility] 22 [place] [address] Naun Duran DO 22 [place] [address] [email or web address] documented as of this encounter Visit Diagnoses Not on filedocumented in this encounter Additional Health Concerns Infection Onset Date Last Indicated Resolved Time Resp-Risk Comment:Per note documentation 12/29/2024 12/29/2024 6:41 AM EST Resp-Risk 01/29/2025 01/29/2025 01/29/2025 9:20 PM EST Influenza A 01/29/2025 01/29/2025 02/05/2025 7:06 PM EST documented as of this encounter Care Teams Silviculture Teacher Relationship Specialty Start Date End Date Baldomero Roy PA [address] [place] [address] PCP - General Physician Kai Whakaruruhau 06/07/24 02/03/25 London Boyer MD [address] [place] [address] PCP - General Nephrology 02/04/25 documented as of this encounter Additional Source Comments The information contained in this document represents components of the legal health record. It is not the complete legal health record.[facility]
--- OUTSIDE RECORDS SUMMARY | 2025-02-17 13:53 | XMS_ITS | Encounter Summary ---
Author Organization [employer] [facility] Address [address] [facility] 7t [place] [address] Care Team Providers Care Music Intern Name Role Phone Unavailable Primary Care Provider [...]
--- OUTSIDE RECORDS SUMMARY | 2025-02-17 13:53 | XMS_ITS | Encounter Summary ---
Author Organization [facility] Address [address] [place] [address] Phone Care Team Providers Care Counter Cutter Name Role Phone Marychuy Ríos MD Primary Care Provider Baldomero Roy Primary Care Provider + London Boyer MD Primary Care Pro vider Encounter Details Date Type Department Care Team (Late st Contact Info) Description 11/30/2020 Ancillary Orders [facility] [address] [place] [address] [place] [address] Alexander Matthew PA 6 [place] [address] [email or web address] Social History Tobacco Use Types Packs/Day Years [...] Appointment [facility] 30 [place], [place] [phone] Cameron Carrero RN [address] [place] [address] 03/03/2025 3:00 AM EST Appointment [facility] 30 [place], [place] [phone] Cameron Carrero RN 168 [place] [address] 04/07/2025 12:00 PM EST Office Visit [facility] 22 [place] [address] Naun Duran, 22 [place] [address] documented as of this encounter Visit Diagnoses Not on filedocumented in this encounter Additional Health Concerns Infection Onset Date Last Indicated Resolved Time Resp-Risk Comment:Per note documentation 12/29/2024 12/29/2024 6:41 AM EST Resp-Risk 01/29/2025 01/29/2025 01/29/2025 9:20 PM EST Influenza A 01/29/2025 01/29/2025 02/05/2025 7:06 PM EST documented as of this encounter Care Teams Counter Cutter Relationship Specialty Start Date End Date Marychuy Ríos MD [address] [facility] 202 [place] [address] PCP - General Internal Medicine 11/30/20 06/06/24 Baldomero Roy PA [address] [place] [address] PCP - General Physician Manager Configuration 06/07/24 02/03/25 London Boyre MD [address] [place] [address] 300 [place] [address] PCP - General Nephrology 02/04/25 documented as of this encounter Additional Source Comments The information contained in this document represents components of the legal health record. It is not the complete legal health record.[facility]
--- OUTSIDE RECORDS SUMMARY | 2025-02-17 13:53 | XMS_ITS | Encounter Summary ---
Author Organization [facility] Address [address] [facility] [address] [place] [address] Phone Care Team Providers Care Chief Hydroelectric Station Operator Name Role Phone Baldomero Roy Primary Care Provider + London Boyer MD Primary Care Pro vider Encounter Details Date Type Department Care Team (Late st Contact Info) Description 02/03/2025 Procedure Pass [facility] 30 [place] [address] Social History Tobacco Use Types Packs/Day Years [...] Description 02/24/2025 2:30 AM EST Appointment [facility] 30 [place], [place] [phone] Cameron Carrero RN [address] [place] [address] 03/03/2025 3:00 AM EST Appointment [facility] 30 [place], [place] [phone] Cameron Carrero, GALDINO [address] [place] [address] 04/07/2025 12:00 PM EST Office Visit [facility] 22 [place] [address] Naun Duran DO 22 [place] [address] [email or web address] documented as of this encounter Visit Diagnoses Not on filedocumented in this encounter Additional Health Concerns Infection Onset Date Last Indicated Resolved Time Influenza A 01/29/2025 01/29/2025 02/05/2025 7:06 PM EST documented as of this encounter Care Teams Chief Hydroelectric Station Operator Relationship Specialty Start Date End Date Baldomero Roy PA [address] [place] [address] PCP - General Physician Astronomy Instructor 06/07/24 02/03/25 London Boyer MD [address] [place] [address] PCP - General Nephrology 02/04/25 documented as of this encounter Additional Source Comments The information contained in this document represents components of the legal health record. It is not the complete legal health record.[facility]
--- OUTSIDE RECORDS SUMMARY | 2025-02-17 13:53 | XMS_ITS | Encounter Summary ---
Author Organization [employer] [facility] Address [address] [facility] 7t [place] [address] Care Team Providers Care Automation And Controls Manager Name Role Phone Unavailable Primary Care [...]
--- OUTSIDE RECORDS SUMMARY | 2025-02-17 13:53 | XMS_ITS | Clinical Summary ---
Author Organization [employer] Address [address] [facility] 7t [place] [address] Care Team Providers Care Sanitation Inspector Name Role Phone Unavailable Primary Care [...]
--- OUTSIDE RECORDS SUMMARY | 2025-02-17 13:53 | XMS_ITS | Encounter Summary ---
Author Organization [facility] Address [address] [address] Phone Care Team Providers Care Automatic Centrifugal Station Operator Name Role Phone Marychuy Ríos MD [...] Expiration Date Visits Re quested Visits Authorized [id number] Closed 11/14/2021 11/14/2022 1 1 Encounter Details Date Type Department Care Team (Late st Contact Info) Description 11/14/2021 Transcribe Orders Virtual Department [address] [place] [address] Marychuy Ríos MD [address] [place] [address] Bruit of right carotid artery (Primary Dx); [...] Appointment [facility] [address], [place] [phone] Cameron Carrero RN [address] [place] [phone] 03/03/2025 3:00 AM EST Appointment [facility] [address], [place] [phone] Cameron Carrero RN [address] [place] [phone] 04/07/2025 12:00 PM EST Office Visit [facility] [place] [address] Naun Duran DO [address] [place] [address] documented as of this encounter Results * [...] stenosis. 2. Bilateral antegrade vertebral artery flow. us Perrincatherine Ríos MD [facility] NEUR[facility] Final R esult documented in this [...] documented as of this encounter Care Teams Automatic Centrifugal Station Operator Relationship Specialty Start Date End Date Marychuy Ríos MD [address] [facility] [address] [place] [address] PCP - General Internal Medicine 11/30/20 06/06/24 Baldomero Roy PA [address] [place] [id number] PCP - General Physician Watch Hairspring Assembler 06/07/24 02/03/25 London Boyer MD [address] [place] [id number] PCP - General Nephrology 02/04/25 documented as of this encounter Additional Source Comments The information contained in this document represents components of the legal health record. It is not the complete legal health record.[facility]
--- OUTSIDE RECORDS SUMMARY | 2025-02-17 13:53 | XMS_ITS | Clinical Summary ---
Author Organization [facility] Address [address] [address] Phone Care Team Providers Care Bladder Trimmer Name Role Phone London Boyer MD Primary [...] Active magnesium oxide 200 mg magnesium Chew Active apixaban (ELIQUIS) 2.5 mg Take 2.5 [...] mouth daily. 30 tablet 2 5 Active isosorbide mononitrate (IMDUR) 30 MG 24 hr tablet Take 30 mg by mouth 3 (three) times a day. 5 Active ascorbic kljv-jfqtpikn-mz n (VITAMIN C ENERGY BOOSTER) 1,000 mg PwEP [...] -Underlying history of CHF, prior history of CAD/CT, last admission 05/2024 with some presentation similar [...] -Underlying history of CHF, prior history of CAD/CT, last admission 05/2024 with some presentation similar [...] was significantly at 7410. -Underlying history of CAD/CT with prior PCI in 2019, ASA was [...] was significantly at 7410. -Underlying history of CAD/CT with prior PCI in 2019, ASA was [...] was significantly at 7410. -Underlying history of CAD/CT with prior PCI in 2018, ASA was [...] patient she receives Retacrit monthly by her histology technologist due to persistent anemia. -Hemoglobin currently 8.1 [...] patient she receives Retacrit monthly by her histology technologist due to persistent anemia. -Hemoglobin currently 8.7 [...] 7.8 today relatively stable no active bleeding [facility] records indicate that she had EGD on [...] nephrology perspective she has established relationship with histology technologist Dr. Anaya in [place], I will make sure she has follow-up with them with blood chemistries within a week - Patient clearly stated would like to avoid any form of dialysis in the future which she is discussed with her outpatient histology technologist. Assessment & Plan (02/03/2025 10:05 AM EST): - Renal function slowly improving diuresed weight is down 254 pounds 11-13 pound lower since admission consider transition to torsemide 60 mg p.o. twice daily consider adding metolazone 5 mg p.o., twice weekly continue with empagliflozin. -Vasodilators as per heat set operator recommendation, may potentially benefit from heart failure program evaluation and mitral valve procedure will defer to heat set operator expertise. Hopefully able to complete workup for MitraClip intervention -Unfortunately due to JHONY would hold off on rest of GDMT agents -Trend hemoglobin check iron stores replete as needed May also benefit from CLARI. - strict I/Os, daily weights, please avoid nephrotoxins (IV contrast, NSAIDs) - please dose reduce antibiotics/medications as appropriate for eGFR - Patient has established relationship with histology technologist Dr. Anaya in [place], - Patient clearly stated would like to avoid any form of dialysis in the future which she is discussed with her outpatient histology technologist. Assessment & Plan (02/02/2025 10:26 AM EST): - Renal function slowly improving diuresed weight is down 254 pounds 11-13 pound lower since admission consider transition to torsemide 60 mg p.o. twice daily -Vasodilators as per heat set operator recommendation, may potentially benefit from heart failure program evaluation and mitral valve procedure will defer to heat set operator expertise. Hopefully able to complete workup for [...] eGFR - Patient has established relationship with histology technologist Dr. Anaya in [place], - Patient clearly stated would like to avoid any form of dialysis in the future which she is discussed with her outpatient histology technologist. Assessment & Plan (02/01/2025 8:14 AM EST): -Continue with diuretic drip furosemide 10 mg/h replete K and mag as needed -Potentially may use distal acting diuretic/metolazone 5 mg p.o. x 1 to further accentuate diuresis as sequential nephron blockade -Vasodilators as per heat set operator recommendation, may potentially benefit from heart failure program evaluation and mitral valve procedure will defer to heat set operator expertise. Hopefully able to complete workup for [...] eGFR - Patient has established relationship with histology technologist Dr. Anaya in [place], - Patient clearly stated would like to avoid any form of dialysis in the future which she is discussed with her outpatient histology technologist. Assessment & Plan (01/31/2025 8:18 AM EST): -Continue to diurese, If suboptimal response suggest to start a diuretic drip furosemide 10 mg/h -Potentially may use distal acting diuretic/metolazone 5 mg p.o. x 1 to further accentuate diuresis as sequential nephron blockade -Vasodilators as per heat set operator recommendation, may potentially benefit from heart failure program evaluation and mitral valve procedure will defer to heat set operator expertise. -Unfortunately due to JHONY would hold off on GDMT agents -Low threshold to start SGLT2 inhibitor -Trend hemoglobin check iron stores - strict I/Os, daily weights, please avoid nephrotoxins (IV contrast, NSAIDs) - please dose reduce antibiotics/medications as appropriate for eGFR - Patient has established relationship with histology technologist Dr. Anaya in [place], - Patient clearly stated would like to avoid any form of dialysis in the future which she is discussed with her outpatient histology technologist. Assessment & Plan (2025 10:15 AM EST): [...] arteries as an outpatient follow-up with outpatient histology technologist and heat set operator. Assessment & Plan (02/03/2025 10:05 AM EST): [...] has had some unclear recommendations from her PCP/heat set operator on whether or not to continue this [...] Encounters Date Type Department Care Team Description 02/17/2025 Home Care Visit [facility] [address] [place] [phone] Melissa Cueva RN TELEPHONE ENCOUNTER 02/13/2025 Episode Documentation Update [facility] [address] [place] [phone] 02/11/2025 Home Care Visit [facility] [address] [place] [phone] Cameron Carrero, RN CASE COMMUNICATION 02/10/2025 10:00 AM EST Home Care Visit [facility] [address] [place] [phone] Cameron Carrero, RN SN OASIS START OF CARE (SOC) 02/10/2025 Plan of Care Documentation [facility] [address] [place] [phone] 02/06/2025 Orders Only [facility] at [address] [address] Provider, MD Lizette 02/06/2025 Telephone [facility] at [address] [address] Unknown, Troy, Hematology Referral 02/06/2025 Home Care Visit [facility] [address] [place] [phone] Sophia Hernandez RN CASE COMMUNICATION 02/03/2025 11:00 AM EST - 02/03/2025 12:20 PM EST Surgery [facility] Cardiovascular And Interventional Radiology [address] [place] [phone] Yomi Dawn MD Right and Left Heart Catheterization with possible LVGRAM 02/03/2025 10:55 AM EST Anesthesia Event [facility] Echo Lab [address] [place] [phone] Tiffanie Cao MD 02/03/2025 Procedure Pass [facility] Cardiovascular And Interventional Radiology [address] [place] [phone] 02/02/2025 Procedure Pass [facility] Echo Lab [address] [place] [phone] 02/01/2025 Orders Only [facility] [address] [place] [phone] Homehealth, Interface MD Cody 01/30/2025 Home Care Visit [facility] [address] [place] [phone] Sophia Hernandez RN CASE COMMUNICATION 01/29/2025 7:55 PM EST Ancillary Procedure [facility] [place] - [address] [address] Montrell Munoz MD 01/29/2025 7:53 PM EST - 02/04/2025 12:47 PM EST Hospital Encounter [facility] [address] [place] [phone] Montrell Munoz MD Zaman, Tonbira S, MD Lipkin-Moore, Zachary M, MD Discharge Disposition: Home-Health Care [facility] 01/19/2025 Orders Only [facility] [address] [place] [address] Homehealth, Interface ProviderMD 01/07/2025 Home Care Visit [facility] [address] [place] [address] Sophia Hernandez, GALDINO NON ADMIT HOME HEALTH VISIT 01/05/2025 Home Care Visit [facility] [address] [place] [address] Sophia Hernandez, RN TELEPHONE ENCOUNTER 01/05/2025 Home Care Visit [facility] [address] [place] [address] Sophia Hernandez RN TELEPHONE ENCOUNTER 01/04/2025 Home Care Visit [facility] [address] [place] [address] Angella Wen, GALDINO CASE COMMUNICATION 12/30/2024 Orders Only [facility] [address] [place] [address] Homehealth, Interface ProviderMD 12/29/2024 9:25 AM EST - 01/02/2025 4:34 PM [facility] Hospital Encounter [facility] [address] [place] [address] Jose Orellana MD Grachev, Maksim, DO McCracken, Helena C, DO Arepally, Sandeep, MD Israeli, Diana A, DO Barbosa-Marcos, Gela Ladd DO, MPH Discharge Disposition: Home-Health Care [facility] 12/29/2024 Procedure Pass [facility] [address] [place] [address] from Last 3 Months Social History Tobacco [...] Sign Reading Time Taken Comments Blood Pressure 118/58 02/10/2025 10:26 AM EST Pulse 82 02/10/2025 10:26 AM EST Temperature 36.7 C (98.1 F) 02/10/2025 10:26 AM EST Respiratory Rate 20 02/10/2025 10:2 6 AM EST Oxygen Saturation 98% 02/10/2025 10: 26 AM EST Inhaled Oxygen Concentration 30% 01/30/2025 [...] EST Appointment [facility] [address] [place], [place] [phone] Cameron Carrero RN [address] [place] [phone] 03/03/2025 3:00 AM EST Appointment [facility] [address] [place], [place] [phone] Cameron Carrero RN [address] [place] [phone] 04/07/2025 12:00 PM EST Office Visit [facility] [place] [address] [place] [address] [email or web address] Health Maintenance Due Date Last Done Comments [...] 2) 2001 OSTEOPOROSIS SCREENING INITIAL (ONE-TIME) 01/02/2016 DIABETIC EYE EXAM 06/12/2024 INFLUENZA VACCINE (#1) 2024 COVID-19 VACCINE ( season) 2024 03/22/2022, 02/24/2021, 06/02/2020, Additional history exists HEMOGLOBIN A1C 06/30/2025 12/31/2024 BLOOD PRESSURE 08/11/2025 02/10/2025 CREATININE LEVEL 02/04/2026 02/04/2025, , 02/02/2025, Additional [...] Procedure Name Priority Date/Time Associated Diagnosis Comments OUTSIDE IMAGING Routine 02/06/2025 2:20 PM EST OUTSIDE LAB Routine 02/06/2025 2:19 PM EST OUTSIDE LAB Routine 02/06/2025 2:18 PM EST OUTSIDE LAB Routine 02/06/2025 2:18 PM EST OUTSIDE LAB Routine 02/06/2025 2:18 PM EST OUTSIDE LAB Routine 02/06/2025 2:17 PM EST OUTSIDE LAB Routine 02/06/2025 2:16 PM EST OUTSIDE LAB Routine 02/06/2025 2:16 PM EST OUTSIDE LAB Routine 02/06/2025 2:14 PM EST CBC AND DIFFERENTIAL Routine 02/04/2025 5:07 AM EST CBC AND DIFFERENTIAL Routine 02/04/2025 5:07 AM EST BASIC METABOLIC PANEL (BMP) Routine 02/04/2025 5:07 AM EST CORTISOL Routine 02/04/2025 5:07 AM EST ALDOSTERONE Routine 02/04/2025 5:07 AM EST RENIN ACTIVITY Routine 02/04/2025 5:06 AM EST XR ABDOMEN SERIES SUPINE WITH [...] 8:05 PM EST BLOOD CULTURE, ROUTINE STAT 8:05 PM EST BLOOD CULTURE, ROUTINE STAT 8:05 PM EST US BEDSIDE Routine 01/29/2025 [...] Recently Relevant to Health Maintenance Results * Outside Imaging Report Only (02/06/2025 2:20 PM EST) Historical Provider IMG XR CHEST Final Res ult * Outside Lab (Non-MGB) (02/06/2025 2:19 PM EST) Only the most recent of8 resultswithin the time period is included. Historical Provider LAB BLOOD BKR ORDERABLES Final Result * Aldosterone (02/04/2025 5:07 AM EST) Aldosterone, S 8.8 <=21 ng/dL 02/09/2025 9:[address] [facility] Comment: ADDITIONAL INFORMATION Reference range for patients 11 years and older is based on upright A.M. collection from subjects without sodium restrictions. This test was developed and its performance characteristics determined by [facility] in a manner consistent with CLIA requirements. This test has not been cleared or approved by the U.S. Food and Drug Administration. Blood (Blood) Venipuncture / Unknown 02/04/2025 5:07 AM EST 02/04/2025 5:12 AM EST us Christa Mcclure PA-C, MS LAB BLOOD BKR ORD ERABLES Final Result [facility] [address] [phone] * (ABNORMAL) CBC and Differential (02/04/2025 5:07 AM EST) Only the most recent of11 resultswithin the time period is included. WBC 4.40 4.00 - 11.00 K/uL 02/04/2025 6:08 AM [facility] RBC 3.06(L) 4.00 - 5.20 M/uL 02/04/2025 6:08 AM [facility] Hemoglobin 8.5(L) 12.0 - 16.0 g/dL 02/04/2025 6:08 AM [facility] Hematocrit 28.8(L) 36.0 - 46.0 % 02/04/2025 6:08 AM [facility] MCV 94.1 80.0 - 100.0 fL 02/04/2025 6:08 AM [facility] MCH 27.8 27.0 - 31.0 pg 02/04/2025 6:08 AM [facility] MCHC 29.5(L) 32.0 - 36.0 g/dL 02/04/2025 6:08 AM [facility] MPV 9.9 8.4 - 12.0 fL 02/04/2025 6:08 AM [facility] RDW-CV 15.4(H) 11.5 - 14.5 % 02/04/2025 6:08 AM [facility] PLT 297 150 - 450 K/uL 02/04/2025 6:08 AM [facility] Neutrophils 50.0 % 02/04/2025 6:08 AM [facility] Lymphocytes 39.5 % 02/04/2025 6:08 AM [facility] Comment:Few atypical lymphoc ytes seen. Monocytes 8.9 % 02/04/2025 6:08 AM [facility] Eosinophils 0.7 % 02/04/2025 6:08 AM [facility] Basophils 0.2 % 02/04/2025 6:08 AM [facility] Imm Grans 0.7 % 02/04/2025 6:08 AM [facility] NRBC 0.0 <=0.0 /100 WBCs 02/04/2025 6:08 AM [facility] Absolute Neutrophils 2.20 1.92 - 7.60 K/uL 02/04/2025 6:08 AM [facility] Absolute Lymphocytes 1.74 0.72 - 4.10 K/uL 02/04/2025 6:08 AM [facility] Absolute Monocytes 0.39 0.16 - 1.10 K/uL 02/04/2025 6:08 AM [facility] Absolute Eosinophils 0.03 0.00 - 0.50 K/uL 02/04/2025 6:08 AM [facility] Absolute Basophils 0.01 0.00 - 0.15 K/uL 02/04/2025 6:08 AM [facility] Absolute Imm Grans 0.03 0.00 - 0.09 K/uL 02/04/2025 6:08 AM [facility] Absolute NRBC 0.00 <=0.00 K cells/uL 02/04/2025 6:08 AM [facility] Absolute Neutrophils 2.20 1.92 - 7.60 K/uL 02/04/2025 6:08 AM [facility] Comment:Automated cell count . Manual ANC may differ if performed. Diff Type Auto 02/04/2025 6:08 AM [facility] Blood (Blood) Venipuncture / Unknown 02/04/2025 5:07 AM EST 02/04/2025 5:12 AM EST Christa Mcclure PA-C, MS LAB BLOOD BKR ORD ERABLES Final Result Performing Organization Address [facility]/ZIP Co de Phone Number [address] [address] * Cortisol (02/04/2025 5:07 AM EST) Pathologist [facility] Cortisol 7.3 See comment ug/dL 02/04/2025 5:46 AM EST [facility] Comment: NORMALS: 8AM-12PM = 5-25 ug/dL [...] ORD ERABLES Final Result Performing Organization Address [facility]/ZIP Co de Phone Number [address] [address] * (ABNORMAL) Basic Metabolic Panel (BMP) (02/04/2025 5:07 AM EST) Only the most recent of12 resultswithin the time period is included. Pathologist [facility] Sodium 141 136 - 145 mmol/L 02/04/2025 5:46 AM EST [facility] Potassium 4.3 3.4 - 5.1 mmol/L 02/04/2025 5:46 AM EST [facility] Chloride 96(L) 98 - 107 mmol/L 02/04/2025 5:46 AM EST [facility] CO2 27 20 - 31 mmol/L 02/04/2025 5:46 AM EST [facility] BUN 77(H) 6 - 23 mg/dL 02/04/2025 5:46 AM [facility] Creatinine 3.70(H) 0.50 - 1.00 mg/dL 02/04/2025 5:46 AM [facility] Glucose 127(H) 70 - 99 mg/dL 02/04/2025 5:46 AM EST [facility] Calcium 9.1 8.5 - 10.5 mg/dL 02/04/2025 5:46 AM [facility] eGFR 12(L) >59 mL/min/1.7 3m2 02/04/2025 5:46 AM EST [facility] Comment:Estimated glomerular filtration rate calculated using the CKD-EPI refit equation. Anion Gap 18(H) 3 - 17 mmol/L 02/04/2025 5:46 AM EST [facility] Blood (Blood) Venipuncture / Unknown 02/04/2025 5:07 AM EST 02/04/2025 5:12 AM EST us Christa Mcclure PA-C, MS LAB BLOOD BKR ORD ERABLES Final Result [address] [address] * Renin Activity (02/04/2025 5:06 AM EST) Renin Activity, P 1.9 ng/mL/h 025 8:56 AM EST [facility] [employer] Comment: REFERENCE VALUE (Peripheral vein specimen) Na-deplete, upright: Mean: 5.9 Range: 2.9-10.8 Na-replete, upright: Mean: 1.0 Range: < or =0.6-3.0 ADDITIONAL INFORMATION Testing performed by Liquid Chromatography-Tandem Mass Spectrometry (LC-MS/MS). This test was developed and its performance characteristics determined by [facility] in a manner consistent with CLIA requirements. This test has not been cleared or approved by the U.S. Food and Drug Administration. Blood (Blood) Venipuncture / Unknown 02/04/2025 5:06 AM EST 02/04/2025 5:12 AM EST us Christa Mcclure PA-C, MS LAB BLOOD BKR ORD ERABLES Final Result [facility] [address] [place] [id number] [phone] * XR Abdomen Series Supine with Decubitus/Erect [...] represent constipation in the proper clinical setting. Christa Mcclure PA-C, MS IMG XR ABDOMEN [...] 7.44(H) 7.30 - 7.40 02/05/2025 4:39 PM [facility] PCO2 44 38 - 50 mm[Hg] 02/05/2025 4:39 PM [facility] PO2 37 35 - 50 mm[Hg] 02/05/2025 4:39 PM [facility] Base Excess 5(H) 0 - 3 mmol/L 02/05/2025 4:39 PM [facility] sO2 72 60 - 85 % 02/05/2025 4:39 PM [facility] Bicarbonate 30 23 - 30 mmol/L 02/05/2025 4:39 PM [facility] Sodium 136 136 - 145 mmol/L 02/05/2025 4:39 PM [facility] Potassium 4.3 3.4 - 5.1 mmol/L 02/05/2025 4:39 PM EST [facility] Blood (Blood) 02/03/2025 1:4 0 PM EST 02/05/2025 4:39 PM EST us Erik Parry MD LAB POCT DOCKED DEVICE UNSOLICTED RESULTS Final Result [address] [address] * POCT Arterial Blood Gas (02/03/2025 1:40 PM EST) [facility] Signature Base Excess 02/16/2025 2:48 PM EST [facility] Comment:This is a corrected result. Previous result was 5.0 mmol/L on 02/03/2025 at 1408 EST SO2 02/16/2025 2:48 PM EST [facility] Comment:This is a corrected result. Previous result was 72 % on 02/03/2025 at 1408 EST Bicarbonate 02/16/2025 2:48 PM EST [facility] Comment:This is a corrected result. Previous result was 30 mmol/L on 02/03/2025 at 1408 EST Sodium 02/16/2025 2:48 PM EST [facility] Comment:This is a corrected result. Previous result was 136 mmol/L on 02/03/2025 at 1408 EST Potassium 02/16/2025 2:48 PM EST [facility] Comment:This is a corrected result. Previous result was 4.3 mmol/L on 02/03/2025 at 1408 EST Blood (Blood) 02/03/2025 1:4 0 PM EST 02/03/2025 2:08 PM EST Narrative [facility] - 02/16/2025 2:48 PM EST Wrong sample type chosen on I-STAT meter. us Erik Parry MD LAB POCT DOCKE D DEVICE UNSOLICTED RESULTS Edited Result - Final [address] [address] * QUEENIE COMP W/ COLOR FLOW AND [...] the medications administered, please refer to the [facility] MAR. Meds reconciled and timeout performed [...] - 4.5 mg/dL 02/03/2025 5:09 AM EST [facility] Blood (Blood) Venipuncture / Unknown 02/03/2025 4:25 AM EST 02/03/2025 4:45 AM EST Ruddy Umaña [facility] LAB BLOOD BKR ORDERABLES Final Result Performing Organization Address [facility] Co de Phone Number [address] [address] * Magnesium (02/03/2025 4:25 AM EST) Only the most recent of11 resultswithin the time period is included. Magnesium 2.0 1.7 - 2.6 mg/dL 02/03/2025 5:09 AM EST [facility] Blood (Blood) Venipuncture / Unknown 02/03/2025 4:25 AM EST 02/03/2025 4:45 AM EST Ruddy Umaña [facility] LAB BLOOD BKR ORDERABLES Final Result Performing Organization Address [facility] Co de Phone Number [address] [address] * ECG 12-LEAD (01/31/2025 2:21 PM EST) Only the most recent of4 resultswithin the time period is included. Ventricular Rate EKG/MIN 48 BPM [facility] Atrial Rate 48 BPM [facility] NE Interval 142 ms [facility] QRS Duration 78 ms [facility] QT Interval 588 ms [facility] QTC Interval 525 ms [facility] P Floyd 58 degrees [facility] R Wave Floyd 25 degrees [facility] T Wave Floyd 184 degrees [facility] 01/31/2025 2:21 PM EST [...] Umaña CNP ECG ORDERABLES Final Res ult [facility] * (ABNORMAL) Troponin (01/31/2025 2:10 PM EST) Only the most recent of5 resultswithin the time period is included. Troponin-T HS Gen5 57(H) 0 - 9 ng/L 01/31/2025 2:38 PM EST [facility] Blood (Blood) Venipuncture / Unknown 01/31/2025 2:10 PM EST 01/31/2025 2:18 PM EST Ruddy Umaña CNP LAB BLOOD BKR ORDERABLES Final Result [facility] [address] [place] [address] * (ABNORMAL) Comprehensive Metabolic Panel (CMP) (01/31/2025 5:13 AM EST) Only the most recent of2 resultswithin the time period is included. Sodium 143 136 - 145 mmol/L 01/31/2025 5:53 AM [facility] Potassium 4.1 3.4 - 5.1 mmol/L 01/31/2025 5:53 AM [facility] Chloride 109(H) 98 - 107 mmol/L 01/31/2025 5:53 AM [facility] CO2 22 20 - 31 mmol/L 01/31/2025 5:53 AM [facility] BUN 55(H) 6 - 23 mg/dL 01/31/2025 5:53 AM [facility] Creatinine 3.20(H) 0.50 - 1.00 mg/dL 01/31/2025 5:53 AM [facility] Glucose 122(H) 70 - 99 mg/dL 01/31/2025 5:53 AM [facility] Calcium 8.8 8.5 - 10.5 mg/dL 01/31/2025 5:53 AM [facility] AST 28 <33 U/L 01/31/2025 5:53 AM [facility] ALT 30 <34 U/L 01/31/2025 5:53 AM [facility] Alkaline Phosphatase 119 40 - 130 U/L 01/31/2025 5:53 AM [facility] Bilirubin, Total 0.3 0.0 - 1.2 mg/dL 01/31/2025 5:53 AM [facility] Total Protein 6.5 6.4 - 8.3 g/dL 01/31/2025 5:53 AM [facility] Albumin 3.0(L) 3.5 - 5.2 g/dL 01/31/2025 5:53 AM [facility] Globulin 3.5 1.9 - 4.1 g/dL 01/31/2025 5:53 AM [facility] eGFR 15(L) >59 mL/min/1.7 3m2 01/31/2025 5:53 AM [facility] Comment:Estimated glomerular filtration rate calculated using the CKD-EPI refit equation. Anion Gap 12 3 - 17 mmol/L 01/31/2025 5:53 AM [facility] Blood (Blood) Venipuncture / Unknown 01/31/2025 5:13 AM EST 01/31/2025 5:21 AM EST us Brynn Keller MD LAB BLOOD BKR ORDERABLES Jenny l Result Performing Organization Address City/[facility]/ZIP Co de Phone Number [address] [address] * Thyroid Stimulating Hormone (TSH), with Reflex (01/31/2025 5:13 AM EST) TSH 1.50 0.40 - 5.90 uIU/mL 01/31/2025 5:53 AM EST [facility] Blood (Blood) Venipuncture / Unknown 01/31/2025 5:13 AM EST 01/31/2025 5:21 AM EST us Brynn Keller MD LAB BLOOD BKR ORDERABLES Jenny l Result Performing Organization Address [facility]/ZIP Co de Phone Number [address] [address] * (ABNORMAL) Erythrocyte Sedimentation Rate (ESR) (01/31/2025 5:13 AM EST) ESR 79(H) 0 - 30 mm/h 01/31/2025 5:57 AM EST [facility] Blood (Blood) Venipuncture / Unknown 01/31/2025 5:13 AM EST 01/31/2025 5:21 AM EST us Brynn Keller MD LAB BLOOD BKR ORDERABLES Jenny l Result Performing Organization Address City/[facility]/ZIP Co de Phone Number [address] [address] * (ABNORMAL) C-Reactive Protein (CRP) (01/31/2025 5:13 AM EST) C Reactive Protein 67.5(H) <10.0 mg/L 01/31/2025 5:53 AM EST [facility] Comment:NOTE: This reference range is for the evaluation of inflammation. Order CRP, High Sensitivity for cardiac risk status evaluation. Blood (Blood) Venipuncture / Unknown 01/31/2025 5:13 AM EST 01/31/2025 5:21 AM EST us Brynn Keller MD LAB BLOOD BKR ORDERABLES Jenny l Result Performing Organization Address City/[facility]/ZIP Co de Phone Number [address] [address] * (ABNORMAL) NT-proBNP (01/31/2025 5:13 AM EST) Only the most recent of3 resultswithin the time period is included. NT-ProBNP 35,603(H) 0 - 900 pg/mL 01/31/2025 6:08 AM EST [facility] Comment: Age <50 years: 0-450 pg/ml [...] ORDERABLES Jenny l Result Performing Organization Address [facility]/ZIP Co de Phone Number [address] [address] * (ABNORMAL) Ionized Calcium (01/31/2025 5:13 AM EST) Ionized Calcium 1.11(L) 1.14 - 1.30 mmol/L 01/31/2025 5:23 AM EST [facility] Blood (Blood, Venous) Venipuncture / Unknown 01/31/2025 5:13 AM EST 01/31/2025 5:21 AM EST us Brynn Keller MD LAB BLOOD BKR ORDERABLES Jenny l Result Performing Organization Address [facility]/ZIP Co de Phone Number [address] [address] * MRSA NASAL SCREEN, PCR (01/30/2025 4:02 AM EST) Only the most recent of2 resultswithin the time period is included. MRSA PCR Screen Negative for MRSA Negative for MRSA 01/30/2025 5:35 AM EST [facility] Swab (Anterior Nares) Non-Blood Collection / Unknown 01/30/2025 4:02 AM EST 01/30/2025 4:22 AM EST us Daysi Mckenzie PA-C LAB GENERAL ORDERABLES Final Result Performing Organization Address [facility] Co de Phone Number [address] [address] * Lactate, Whole Blood (01/29/2025 11:08 PM EST) Only the most recent of2 resultswithin the time period is included. Lactate, Whole Blood 1.9 0.5 - 2.0 mmol/L 01/29/2025 11:14 PM EST [facility] Blood (Blood, Venous) Venipuncture / Unknown 01/29/2025 11:08 PM EST 01/29/2025 11:11 PM EST Daysi Mckenzie PA-C LAB BLOOD BKR ORDERABLE S Final Result Performing Organization Address [facility]/ZIP Co de Phone Number [address] [address] * (ABNORMAL) Urinalysis with Reflex to Urine Culture (01/29/2025 9:51 PM EST) Color Yellow Yellow 01/29/2025 9:59 PM [facility] Clarity Clear Clear 01/29/2025 9:59 PM [facility] Glucose Negative Negative 01/29/2025 9:59 PM [facility] Bilirubin Urine Negative Negative 9:59 PM [facility] Ketone Urine Negative Negative 01/29/2025 9:59 PM [facility] Specific Conde 1.020 1.001 - 1.035 01/29/2025 9:59 PM [facility] Blood 1+(A) Negative 01/29/2025 9:59 PM [facility] pH 6.0 5.0 - 8.0 01/29/2025 9:59 PM [facility] Protein 3+(A) Negative 01/29/2025 9:59 PM [facility] Nitrites Negative Negative 01/29/2025 9:59 PM [facility] Leukocyte Esterase Negative Negative 01/29/2025 9:59 PM [facility] Urobilinogen Negative Negative 01/29/2025 9:59 PM [facility] Urine (Urine, Voided) Non-Blood Collection / Unknown 01/29/2025 9:51 PM EST 01/29/2025 9:55 PM EST us Montrell Munoz MD LAB URINE ORDERABLES Final Result Performing Organization Address City/State/[facility] Co de Phone Number [address] [address] * (ABNORMAL) URINE SEDIMENT (01/29/2025 9:51 PM EST) WBC 0-2 0 - 9 /hpf 01/29/2025 10:05 PM [facility] RBC 0-2 0 - 2 /hpf 01/29/2025 10:05 PM [facility] Squamous Epithelial Cells 3-5(A) Not Present /hpf 01/29/2025 10:05 PM [facility] Mucus Present(A ) Not Present /hpf 01/29/2025 10:05 PM [facility] Granular Cast 1-2(A) Not Present /lpf 01/29/2025 10:05 PM [facility] Hyaline Cast 1-2 0 - 2 /lpf 01/29/2025 10:05 PM [facility] Amorphous Urate/Phosphate crystals Present(A ) Not Present /hpf 01/29/2025 10:05 PM [facility] Urine (Urine, Voided) Non-Blood Collection / Unknown 01/29/2025 9:51 PM EST 01/29/2025 9:55 PM EST Montrell Munoz MD LAB URINE ORDERABLES Final Result Performing Organization Address City/[facility]/ZIP Co de Phone Number [address] [address] * (ABNORMAL) Venous Blood Gas (VBG) (01/29/2025 9:05 PM EST) Only the most recent of2 resultswithin the time period is included. pH, Venous 7.24(L) 7.31 - 7.41 01/29/2025 9:13 PM [facility] pCO2, Venous 53(H) 35 - 45 mm[Hg] 01/29/2025 9:13 PM [facility] pO2, Venous 42(H) 35 - 40 mm[Hg] 01/29/2025 9:13 PM [facility] Base Excess -5.0(L) -3.0 - 3.0 mmol/L 01/29/2025 9:13 PM [facility] Bicarbonate (HCO3) 23 23 - 28 mmol/L 01/29/2025 9:13 PM [facility] Oxygen Saturation, Venous 68.8 60.0 - 80.0 % 01/29/2025 9:13 PM [facility] Blood (Blood, Venous) Venipuncture / Unknown 01/29/2025 9:05 PM EST 01/29/2025 9:09 PM EST Montrell Munoz MD LAB BLOOD BKR ORDERABLES Fi nal Result [address] [address] * (ABNORMAL) SARS-CoV-2, INFLUENZA A/B, PCR (01/29/2025 8:43 PM EST) Only the most recent of2 resultswithin the time period is included. [facility] SARS-CoV-2 RNA PCR Not Detected Not Detected 01/29/2025 9:20 PM EST [facility] Influenza A PCR Detected(A) Not Detected 01/29/2025 9:20 PM [facility] Influenza B PCR Not Detected Not Detected 01/29/2025 9:20 PM [facility] Swab (Nasopharynx, Bilateral) Non-Blood Collection / Unknown 01/29/2025 8:43 PM EST 01/29/2025 8:46 PM EST Montrell Munoz MD LAB GENERAL ORDERABLES Jenny l Result Performing Organization Address [facility] de Phone Number [address] [address] * Symptomatic Respiratory Virus Testing Panel (ED/IP) (01/29/2025 8:43 PM EST) Only the most recent of2 resultswithin the time period is included. [facility] SARS Comment 01/29/2025 8:58 PM [facility] Comment:This test automatica lly orders a COVID-19 PCR and may add Flu, RSV, or other viral tests based on patient clinical factors and site protocols. Results will appear below and separately in chart review when available. Swab (Nasopharynx, Bilateral) Non-Blood Collection / Unknown 01/29/2025 8:43 PM EST 01/29/2025 8:46 PM EST us Montrell Munoz MD LAB GENERAL ORDERABLES Jenny l Result Performing Organization Address [facility] Co de Phone Number [address] [address] * Lab Add-On (01/29/2025 8:26 PM EST) Only the most recent of2 resultswithin the time period is included. Specimen Date/Time 01/31/2025 8:05 AM [facility] Test Requested Lipase, LFTs 01/31/2025 8:05 AM [facility] Specimen Description 01/31/2025 8:05 AM [facility] Comments 01/31/2025 8:05 AM [facility] Was this request processed? Yes 01/31/2025 8:05 AM [facility] Other (Other) 01/29/2025 8:2 6 PM EST 01/29/2025 8:26 PM EST us Montrell Munoz MD LAB GENERAL ORDERABLES Jenny l Result Performing Organization Address City/State/[facility] Co de Phone Number [address] [address] * XR Chest Portable (01/29/2025 8:15 PM EST) Anatomical Region Laterality Modality Chest Computed Radiogr aphy 01/29/2025 11:2 8 PM EST Impressions 01/29/2025 11:30 PM EST Moderate pulmonary edema and small pleural effusions. Narrative 01/29/2025 11:30 PM EST XR CHEST PORTABLE Referring clinician's provided indication for this examination in [facility]: Shortness of breath COMPARISON: XR CHEST PORTABLE [...] clinician's provided indication for this examination in [facility]:Shortness of breath COMPARISON: XR CHEST PORTABLE FINDINGS: [...] of3 resultswithin the time period is included. PT 13.0 10.0 - 13.0 sec 01/29/2025 9:07 PM [facility] INR 1.1 0.9 - 1.1 01/29/2025 9:07 PM [facility] Comment:Therapeutic Range 2. 0 - 3.5 Blood (Blood) Venipuncture / Unknown 01/29/2025 8:10 PM EST 01/29/2025 8:12 PM EST us Montrell Munoz MD LAB BLOOD BKR ORDERABLES Fi nal Result [address] [address] * Blood Culture, Routine (01/29/2025 8:05 PM EST) Only the most recent of2 resultswithin the time period is included. Blood Culture/Test No growth at 5 days 02/03/2025 8:15 PM EST [facility] Blood (Blood) Venipuncture / Unknown 01/29/2025 8:05 PM EST 01/29/2025 8:09 PM EST us Montrell Munoz MD LAB MICROBIOLOGY CULTURE OR DERABLES Final Result [address] [address] * (ABNORMAL) Hepatic Panel (LFTs) (01/29/2025 8:05 PM EST) Only the most recent of3 resultswithin the time period is included. AST 73(H) <33 U/L 01/29/2025 9:20 PM EST [facility] ALT 37(H) <34 U/L 01/29/2025 9:20 PM [facility] Alkaline Phosphatase 173(H) 40 - 130 U/L 01/29/2025 9:20 PM [facility] Bilirubin, Total 0.4 0.0 - 1.2 mg/dL 01/29/2025 9:20 PM [facility] Bilirubin, Direct 0.2 0.0 - 0.3 mg/dL 01/29/2025 9:20 PM [facility] Total Protein 7.4 6.4 - 8.3 g/dL 01/29/2025 9:20 PM [facility] Albumin 3.4(L) 3.5 - 5.2 g/dL 01/29/2025 9:20 PM [facility] Globulin 4.0 1.9 - 4.1 g/dL 01/29/2025 9:20 PM [facility] Blood (Blood) Venipuncture / Unknown 01/29/2025 8:05 PM EST 01/29/2025 8:10 PM EST us Montrell Muonz MD LAB BLOOD BKR ORDERABLES Fi nal Result [address] [address] * Lipase (01/29/2025 8:05 PM EST) Lipase 41 13 - 60 U/L 01/29/2025 9:20 PM [facility] Blood (Blood) Venipuncture / Unknown 01/29/2025 8:05 PM EST 01/29/2025 8:10 PM EST us Montrell Munoz MD LAB BLOOD BKR ORDERABLES Fi nal Result [address] [address] * US BEDSIDE (01/29/2025 7:51 PM EST) [...] positive Images: Images Saved: Yes Accession Number: [id number] us Montrell Munoz MD IMG POINT OF [...] provided indication for this examination in Epic: Renal failure, acute; Renal failure, chronic TECHNIQUE: [...] clinician's provided indication for this examination in Epic:Renal failure, acute; Renal failure, chronic TECHNIQUE: Kidney [...] Bilateral renal cysts. Gela Preciado DO, MPH IM US RENAL Final Result * (ABNORMAL) CBC (01/02/2025 7:19 AM EST) WBC 6.75 4.00 - 11.00 K/uL 01/02/2025 7:50 AM [facility] RBC 3.01(L) 4.00 - 5.20 M/uL 01/02/2025 7:50 AM [facility] Hemoglobin 8.5(L) 12.0 - 16.0 g/dL 01/02/2025 7:50 AM [facility] Hematocrit 29.4(L) 36.0 - 46.0 % 01/02/2025 7:50 AM [facility] MCV 97.7 80.0 - 100.0 fL 01/02/2025 7:50 AM [facility] MCH 28.2 27.0 - 31.0 pg 01/02/2025 7:50 AM [facility] MCHC 28.9(L) 32.0 - 36.0 g/dL 01/02/2025 7:50 AM [facility] PLT 331 150 - 450 K/uL 01/02/2025 7:50 AM [facility] MPV 10.6 8.4 - 12.0 fL 01/02/2025 7:50 AM [facility] RDW-CV 15.8(H) 11.5 - 14.5 % 01/02/2025 7:50 AM [facility] Absolute NRBC 0.02(H) <=0.00 K cells/uL 01/02/2025 7:50 AM [facility] NRBC 0.3(H) <=0.0 /100 WBCs 01/02/2025 7:50 AM [facility] Blood (Blood) Venipuncture / Unknown 01/02/2025 7:19 AM EST 01/02/2025 7:35 AM EST us Nakita Rodriguezi DO LAB BLOOD BKR ORDERABLES Jenny l Result [facility] [address] [place] [address] * (ABNORMAL) Hemoglobin A1c (12/31/2024 6:33 AM EST) Hemoglobin A1c 6.1(H) 4.3 - 5.6 % 12/31/2024 11:32 AM [facility] Calculated Mean Blood Glucose 128 mg/dL 12/31/2024 11:32 AM [facility] Comment:There is no establis hed normal [...] LAB BLOOD BKR ORD ERABLES Final Result [address] [address] * TTE COMPREHENSIVE (12/30/2024 8:34 AM EST) [...] - 0.25 ng/mL 12/29/2024 6:12 PM EST [facility] Comment: <=0.25 ng/mL: Bacterial pneumonia is unlikely. [...] BKR ORDERABLES Final Result Performing Organization Address City/State/[facility] Co de Phone Number [address] [address] * US Lower Extremity Veins Duplex Complete [...] createdby Carson Izaguirre. us Jose Orellana MD CV US VASCULAR F inal Result * (ABNORMAL) Arterial Blood Gas (ABG) (12/29/2024 9:53 AM EST) FiO2 50 % 12/29/2024 10:02 AM [facility] pH, Arterial 7.28(L) 7.35 - 7.45 12/29/2024 10:02 AM [facility] pCO2, Arterial 43 35 - 45 mm[Hg] 12/29/2024 10:02 AM [facility] pO2, Arterial 107(H) 80 - 105 mm[Hg] 12/29/2024 10:02 AM [facility] Bicarbonate (HCO3) 20(L) 22 - 26 mmol/L 12/29/2024 10:02 AM [facility] Base Excess -6.8(L) -3.0 - 3.0 mmol/L 12/29/2024 10:02 AM [facility] Oxygen Saturation, Arterial 97.8 95.0 - 98.0 % 12/29/2024 10:02 AM [facility] Blood (Blood, Arterial) Arterial Puncture / Unknown 12/29/2024 9:53 AM EST 12/29/2024 9:56 AM EST us Jose Orellana MD LAB BLOOD BKR ORD ERABLES Final Result [address] [address] * (ABNORMAL) D-Dimer (12/29/2024 9:49 AM EST) D-Dimer 7,410(H) <500 ng/mL FEU 12/29/2024 12:05 PM EST [facility] Comment:A negative D-dimer r esult (at [...] LAB BLOOD BKR ORD ERABLES Final Result [facility] [address] [place] [address] * XR Chest Portable (12/29/2024 9:47 AM [...] provided indication for this examination in Epic: Dyspnea (Shortness of Breath) COMPARISON: XR CHEST PORTABLE FINDINGS: Devices/Tubes/Lines: None. Lungs: Diffuse interstitial prominence. Additional left lower lobe opacity is present. Pleura: Trace bilateral pleural effusion. Heart/Mediastinum: Unchanged cardiomegaly with aortic calcifications. Bones/Soft Tissues: No significant abnormality. Procedure Note Anne Tucker MD - 12/29/2024 XR CHEST PORTABLE Referring clinician's provided indication for this examination in Epic:Dyspnea (Shortness of Breath) COMPARISON: XR CHEST PORTABLE [...] Maynard MD - 06/12/2024 7:48 AM EDT [facility] Patient Name: Yecenia Rustam Gaines Attending MD:: SIXTO MAYNARD MD, Procedure Date: 06/12/2024 7:48 AM Date of : 1950 Age: 74 Admit Type: Inpatient Gender: Female Room: [place] [address] Referring MD: Baldomero Roy Exam Type: Colonoscopy [...] bowel preparation was evaluated using the BBPS (Grawn Bowel Preparation Scale) with scores of:Right Colon [...] - Outpatient f/u with Bettie PARKS. SIXTO MAYNARD MD 06/12/2024 8:13:01 AM This report has been signed electronically. Number of Addenda: 0 Note Initiated On: 06/12/2024 7:48 AM Procedure Code(s): --- Professional --- 31153, Colonoscopy, flexible; diagnostic, including collection of specimen(s) by brushing or washing, when performed (separateprocedure) --- Technical --- 34283, Colonoscopy, flexible; diagnostic, including collection of specimen(s) by brushing or washing, when performed (separateprocedure) Diagnosis Code(s): --- Professional --- D50.9, Iron deficiency anemia, unspecified K57.30, Diverticulosis of large intestine without perforation or abscess without bleeding --- Technical --- D50.9, Iron deficiency anemia, unspecified K57.30, Diverticulosis of large intestine without perforation or abscess without bleeding CPT copyright 2021 [employer]. All rights reserved. The codes documented in this report are preliminary and upon toy mechanic reviewmay be revised to meet current compliance requirements. Procedure Date: 06/12/2024 7:48:04 AM [address] [place] [address] Baldomero AGUIR[facility] GI PROCEDURE ORDERABLES Final Result from Last 3 Months or Most Recently Relevant to Health Maintenance Insurance MEDICARE PART A & B [facility] MEDICARE REPLACEMENT MEDICARE PART A & B [employer] MEDICARE REPLACEMENT MEDICARE PART A & B MEDICARE PART A & B MEDICARE PART A & B O MEDICARE REPLACEMENT TIMOTHY IBANEZ [id number] MEDICARE PART A & B MEDICARE PART A & B MEDICARE REPLACEMENT TIMOTHY IBANEZ [facility] Member Subscriber Plan / Payer (Ef fective 2024-Present) Name:Yecenia Alaniz Relation to Subscriber:Self Name:Yecenia Alaniz Payer ID:[id number] (NAIC) Group ID:[id number] Type:Medicare Address: [place] [address] MEDICARE PART A & B [facility] MEDICARE REPLACEMENT Advance Directives For more information, please contact: [phone] (9AM - 5PM [facility], Sunday-Sunday) Documents on File Type Date Recorded Patient Linesperson Expl dolly Healthcare Proxy 02/06/2025 8:17 AM * Full Code (Latest Code Status on [...] Name Relationship Healthcare Agent Relationship Communication Sree Chatmanking Friend Other (no proxy form on file) Gurmeet Easton Son .Primary Health Care Agent (Proxy form on file) Gabriel Hilario Friend Alternate Healthcare Agent (Proxy form on file) Care Teams Bladder Trimmer Relationship Specialty Start Date End Date London Boyer MD [address] [place] [address] PCP - General Nephrology 02/04/25 Additional Source Comments The information contained in this document represents components of the legal health record. It is not the complete legal health record.[facility]
--- OUTSIDE RECORDS SUMMARY | 2025-02-17 13:53 | XMS_ITS | Encounter Summary ---
Author Organization [facility] Address [address] [place] [address] Phone Care Team Providers Care Tanker Truck Driver Name Role Phone London Boyer MD Primary Care Pro vider Encounter Details Date Type Department Care Team (Late st Contact Info) Description 02/06/2025 Orders Only [facility] [place] [facility] at [address] [address] ProviderLizette MD [facility] [place] [address] Social History Tobacco Use Types Packs/Day Years [...] is your housing situation today? I have fniesse mckeon 02/02/2025 How many times have you [...] 02/24/2025 2:30 AM EST Appointment [facility] [address] [place] [phone] Cameron Carrero, GALDINO [address] [place] [address] 03/03/2025 3:00 AM EST Appointment [facility] [address] [place] [address] Cameron Carrero RN [address] [place] [address] 04/07/2025 12:00 PM EST Office Visit [facility] [place] [address] Naun Duran DO [address] [place] [address] [email or web address] documented as of this encounter Procedures Procedure [...] OUTSIDE LAB Routine 02/06/2025 2:14 PM EST documented in this encounter Results * Outside Imaging Report Only (02/06/2025 2:20 PM EST) Historical Provider IMG XR CHEST Final Res ult * Outside Lab (Non-MGB) (02/06/2025 2:19 PM EST) Historical Provider LAB BLOOD BKR ORDERABLES Final Result * Outside Lab (Non-MGB) (02/06/2025 2:18 PM EST) Historical Provider LAB BLOOD BKR ORDERABLES Final Result * Outside Lab (Non-MGB) (02/06/2025 2:18 PM EST) Historical Provider MD LAB BLOOD BKR ORDERABLES Final Result * Outside Lab (Non-MGB) (02/06/2025 2:18 PM EST) [facility] Provider MD LAB BLOOD BKR ORDERABLES Final Result * Outside Lab (Non-MGB) (02/06/2025 2:17 PM EST) [facility] Provider MD LAB BLOOD BKR ORDERABLES Final Result * Outside Lab (Non-MGB) (02/06/2025 2:16 PM EST) [facility] Provider MD LAB BLOOD BKR ORDERABLES Final Result * Outside Lab (Non-MGB) (02/06/2025 2:16 PM EST) [facility] Provider MD LAB BLOOD BKR ORDERABLES Final Result * Outside Lab (Non-MGB) (02/06/2025 2:14 PM EST) [facility] Provider MD LAB BLOOD BKR ORDERABLES Final Result documented in this encounter Visit Diagnoses Not on filedocumented in this encounter Care Teams Tanker Truck Driver Relationship Specialty Start Date End Date London Boyer MD [address] [place] [address] PCP - General Nephrology 02/04/25 documented as of this encounter Additional Source Comments The information contained in this document represents components of the legal health record. It is not the complete legal health record.[facility]
--- OUTSIDE RECORDS SUMMARY | 2025-02-17 13:53 | XMS_ITS | Encounter Summary ---
Author Organization [facility] Address [address] [place] [address] Phone Care Team Providers Care Public Policy Coordinator Name Role Phone Marychuy Ríos MD Primary Care Provider Baldomero Roy Primary Care Provider + London Boyer MD Primary Care Pro vider Encounter Details Date Type Department Care Team (Late st Contact Info) Description 12/13/2022 Ancillary Orders [facility] [address] [place] [address] Raphael Graf MD [address] [place] [address] Orthopedics & Sports Medicine, [place] [address] [email or web address] Pain Social History Tobacco Use Types Packs/Day [...] Appointment [facility] [address] [place] [phone] Cameron Carrero RN [address] [place] [address] 03/03/2025 3:00 AM EST Appointment [facility] [address] [place], [place] [phone] Cameron Carrero RN [address] [place] [address] 04/07/2025 12:00 PM EST Office Visit [facility] [address] [place] [address] Naun Duran DO [address] [place] [address] documented as of this encounter Results * [...] of the lateral joint space with probable [id number] contact. Also on the right is arterial [...] narrowing ofthe lateral joint space with probable cvwg-[id number] contact. Also on theright is arterial vascular [...] documented as of this encounter Care Teams Public Policy Coordinator Relationship Specialty Start Date End Date Marychuy Ríos MD [address] [facility] [address] [place] [address] PCP - General Internal Medicine 11/30/20 06/06/24 Baldomero Roy PA [address] [place] [address] PCP - General Physician Senior Bioinformatics Scientist 06/07/24 02/03/25 London Boyer MD [address] [place] [address] PCP - General Nephrology 02/04/25 documented as of this encounter Additional Source Comments The information contained in this document represents components of the legal health record. It is not the complete legal health record.[facility]
--- OUTSIDE RECORDS SUMMARY | 2025-02-17 13:53 | XMS_ITS | Encounter Summary ---
Author Organization [facility] Address [address] [place] [address] Phone Care Team Providers Care Medical Office Coordinator Name Role Phone London Boyer MD Primary Care Pro vider Encounter Details Date Type Department Care Team (Late st Contact Info) Description 02/13/2025 Episode Documentatio n Update [facility] [address] [place] [phone] Social History Tobacco Use Types Packs/Day Years [...] Appointment [facility] [address] [place] [address] Cameron Carrero RN [address] [place] [address] 03/03/2025 3:00 AM EST Appointment [facility] [address] [place] [address] Cameron Carrero RN [address] [place] [address] 04/07/2025 12:00 PM EST Office Visit [facility] [address] [place] [address] Naun Duran DO [address] [place] [address] [email or web address] documented as of this encounter Visit Diagnoses Not on filedocumented in this encounter Care Teams Medical Office Coordinator Relationship Specialty Start Date End Date London Boyer MD [address] [place] [address] PCP - General Nephrology 02/04/25 documented as of this encounter Additional Source Comments The information contained in this document represents components of the legal health record. It is not the complete legal health record.[facility]
--- OUTSIDE RECORDS SUMMARY | 2025-02-17 13:53 | XMS_ITS | Encounter Summary ---
Author Organization [facility] Address [address] [facility] [address] [place] [phone] Phone Care Team Providers Care Bellows Tester Name Role Phone Baldomero Roy Primary Care Provider + London Boyer MD Primary Care Pro vider Encounter Details Date Type Department Care Team (Late st Contact Info) Description 06/12/2024 Procedure Pass [facility] Endoscopy Admitting Dept Virtual Department [address] [place] [address] Social History Tobacco Use Types Packs/Day Years [...] EST Appointment [facility] [address] [place], [place] [phone] Cameron Carrero RN [address] [place], [place] [phone] 03/03/2025 3:00 AM EST Appointment [facility] [address] [place], [place] [phone] Cameron Carrero, GALDINO [address] [place] [address] 04/07/2025 12:00 PM EST Office Visit [facility] [address] [place] [address] Naun Duran, [address] [place] [address] [email or web address] documented as of this encounter Visit Diagnoses Not on filedocumented in this encounter Additional Health Concerns Infection Onset Date Last Indicated Resolved Time Resp-Risk Comment:Per note documentation 12/29/2024 12/29/2024 6:41 AM EST Resp-Risk 01/29/2025 01/29/2025 01/29/2025 9:20 PM EST Influenza A 01/29/2025 01/29/2025 02/05/2025 7:06 PM EST documented as of this encounter Care Teams Bellows Tester Relationship Specialty Start Date End Date Baldomero Roy PA [address] [place] [address] PCP - General Physician Chuck Boner 06/07/24 02/03/25 London Boyer MD [address] [place] [address] PCP - General Nephrology 02/04/25 documented as of this encounter Additional Source Comments The information contained in this document represents components of the legal health record. It is not the complete legal health record.[facility]
--- OUTSIDE RECORDS SUMMARY | 2025-02-17 13:53 | XMS_ITS | Encounter Summary ---
Author Organization [facility] Address [address] [place] [address] Phone Care Team Providers Care National Accounts Recruiter Name Role Phone Marychuy Ríos MD Primary Care Provider Baldomero Roy Primary Care Provider + London Boyer MD Primary Care Pro vider Encounter Details Date Type Department Care Team (Late st Contact Info) Description 11/30/2020 Ancillary Orders [facility] [address] [place] [address] [place] [id number] Alexander Matthew PA [address] [place] [address] [email or web address] Social History Tobacco Use Types Packs/Day Years [...] Appointment [facility] [address] [place], [place] [phone] Cameron Carrero RN [address] [place] [address] 03/03/2025 3:00 AM EST Appointment [facility] [address] [place], [place] [phone] Cameron Carrero RN [address] [place] [address] 04/07/2025 12:00 PM EST Office Visit [facility] [address] [place] [address] Naun Duran, [address] [place] [address] documented as of this encounter Visit Diagnoses Not on filedocumented in this encounter Additional Health Concerns Infection Onset Date Last Indicated Resolved Time Resp-Risk Comment:Per note documentation 12/29/2024 12/29/2024 6:41 AM EST Resp-Risk 01/29/2025 01/29/2025 01/29/2025 9:20 PM EST Influenza A 01/29/2025 01/29/2025 02/05/2025 7:06 PM EST documented as of this encounter Care Teams National Accounts Recruiter Relationship Specialty Start Date End Date Marychuy Ríos MD [address] [facility] [address] [place] [address] PCP - General Internal Medicine 11/30/20 06/06/24 Baldomero Roy PA [address] [place] [address] PCP - General Physician Heavy Coil Winder 06/07/24 02/03/25 London Boyer MD [address] [place] [address] [address] [place] [address] PCP - General Nephrology 02/04/25 documented as of this encounter Additional Source Comments The information contained in this document represents components of the legal health record. It is not the complete legal health record.[facility]
--- OUTSIDE RECORDS SUMMARY | 2025-02-17 13:53 | XMS_ITS | Encounter Summary ---
Author Organization [facility] Address [address] [facility] [address] [place] [address] Phone Care Team Providers Care Porcelain Waxer Name Role Phone London Boyer MD Primary Care Pro vider Reason for Visit * Auth/Cert (Routine) Specialty Diagnoses / Procedures Referred By Contac t Referred To Contact Referral ID Status Reason Start Date Expiration Date Visits Re quested Visits Authorized [id number] 1 1 Encounter Details Date Type Department Care Team (Late st Contact Info) Description 02/17/2025 Home Care Visit [facility] [address] [place] [phone] Melissa Cueva RN [address] [place] [address] [email or web address] TELEPHONE ENCOUNTER Social History Tobacco Use Types Packs/Day Years [...] Appointment [facility] [address] [place] [phone] Cameron Carrero RN [address] [place] [address] 03/03/2025 3:00 AM EST Appointment [facility] [address] [place], [place] [phone] Cameron Carrero RN [address] [place] [address] 04/07/2025 12:00 PM EST Office Visit [facility] [address] [place] [address] Naun Duran DO [address] [place] [address] documented as of this encounter Visit Diagnoses Not on filedocumented in this encounter Care Teams Porcelain Waxer Relationship Specialty Start Date End Date London Boyer MD [address] [place] [phone] PCP - General Nephrology 02/04/25 documented as of this encounter Additional Source Comments The information contained in this document represents components of the legal health record. It is not the complete legal health record.[facility]
--- OUTSIDE RECORDS SUMMARY | 2025-02-17 13:53 | XMS_ITS | Encounter Summary ---
Author Organization [facility] Address [address] [facility] [address] [place] [address] Phone Care Team Providers Care Gathering Worker Name Role Phone Baldomero Roy Primary Care Provider + London Boyer MD Primary Care Pro vider Encounter Details Date Type Department Care Team (Late st Contact Info) Description 06/08/2024 Procedure Pass [facility] [address] [place] [address] Social History Tobacco Use Types Packs/Day Years [...] Appointment [facility] [address] [place], [place] [phone] Cameron Carrero, GALDINO [address] [place] [address] 03/03/2025 3:00 AM EST Appointment [facility] [address] [place] [phone] Cameron Carrero, GALDINO [address] [place] [address] 04/07/2025 12:00 PM EST Office Visit [facility] [address] [place] [address] Naun Duran DO [address] [place] [address] [email or web address] documented as of this encounter Visit Diagnoses Not on filedocumented in this encounter Additional Health Concerns Infection Onset Date Last Indicated Resolved Time Resp-Risk Comment:Per note documentation 12/29/2024 12/29/2024 6:41 AM EST Resp-Risk 01/29/2025 01/29/2025 01/29/2025 9:20 PM EST Influenza A 01/29/2025 01/29/2025 02/05/2025 7:06 PM EST documented as of this encounter Care Teams Gathering Worker Relationship Specialty Start Date End Date Baldomero Roy PA [address] [place] [address] PCP - General Physician Regional Coordinator 06/07/24 02/03/25 London Boyer MD [address] [place] [address] PCP - General Nephrology 02/04/25 documented as of this encounter Additional Source Comments The information contained in this document represents components of the legal health record. It is not the complete legal health record.[facility]
== END 2025-02-17 10:23 ==
LOC: HO.LAB 10:22
PROVIDERS: PCP Physician Assistant; Visit Provider Internal Medicine Nephrology
DX: I12.9 Hypertensive chronic kidney disease with stage 1 through stage 4 chronic kidney disease, or unspecified chronic kidney disease (principal); N18.4 Chronic kidney disease, stage 4 (severe); D63.1 Anemia in chronic kidney disease; N17.9 Acute kidney failure, unspecified
CPT/HCPCS: 36415; 80051; 82310; 82565; 84520; 85025